=== PATIENT | female | born 1955 | race Caucasian/White ===

== ENCOUNTER 2022-10-25 09:15 | Inpatient (IN) | payer OTHER, SELFPAY ==
[2022-10-25] VITALS (9 sets, daily range): BP systolic 98–127; BP diastolic 65–80; PULSE 53–93; RESP 14–23; TEMP 36.2–36.8; O2SAT 93–97; BMI 23.4
--- NOTE | ~2022-10-25 | MR_ITS ---
EXAMINATION: MR BRAIN WITHOUT AND WITH CONTRAST CLINICAL INFORMATION: Mass COMPARISON: Same day CT head without contrast. TECHNIQUE: Multiplanar multisequence MR imaging of the brain was obtained without and following the administration of 7.5 mL Gadavist intravenous contrast. FINDINGS: Solid, centrally necrotic, and mildly diffusion restricting right frontal lobe mass measures up to 3.0 x 3.4 x 2.9 cm. There is extensive vasogenic edema in the right frontal lobe. No other intraparenchymal lesions are identified. Associated mass effect with partial effacement of the right lateral ventricle and approximately 8 mm leftward midline shift. There is some mild medialization of the right uncus. No tonsillar herniation. There is no acute infarct on diffusion-weighted imaging. There is no intracranial hemorrhage on iron-sensitive imaging. No extra-axial collection. Patchy periventricular and deep white matter T2 FLAIR hyperintensities consistent with mild to moderate underlying microangiopathy. No hydrocephalus. The ventricles are normal in morphology and size. No abnormal leptomeningeal enhancement. The major flow voids at the skull base are preserved. The midline structures are normal. The craniocervical junction is normal. Marrow signal is within normal limits. The visualized soft tissues are without significant abnormality. No signal abnormality within the paranasal sinuses or within the mastoid air cells. MR/MR head/brain wo/w con IMPRESSION: Right frontal lobe mass measuring up to 3.4 cm with extensive surrounding vasogenic edema and mass effect resulting in 8 mm leftward midline shift and mild medialization of the right uncus. No other intraparenchymal lesions are identified. Differential considerations include solitary metastatic disease, less likely a high-grade glial neoplasm.
--- NOTE | ~2022-10-25 | XR_ITS ---
EXAMINATION: XR CHEST CLINICAL INFORMATION: Subacute CVA COMPARISON: None available. TECHNIQUE: AP portable upright view of the chest was obtained. FINDINGS: Cardiac leads project over the chest. There is mild prominence of the interstitial markings in the right mid and lower lung. No focal consolidation or interstitial pulmonary edema. The cardiomediastinal silhouette is within normal limits. There are no pleural effusions. Thoracolumbar scoliosis is noted. XR/XR chest 1V IMPRESSION: Mild prominence of the interstitial markings in the right mid and lower lung. No focal consolidation.
--- NOTE | ~2022-10-25 | CT_ITS ---
EXAMINATION: CT ABDOMEN AND PELVIS WITH CONTRAST CLINICAL INFORMATION: Brain mass. Rule out metastatic disease. COMPARISON: None available. TECHNIQUE: Multidetector volumetric images were obtained from the superior aspect of the liver through the pubic symphysis following administration 85 mL of Omnipaque 350 intravenous contrast. Sagittal and coronal reformatted images were obtained on the technologist's workstation. Oral contrast: Yes This CT examination was performed using dose optimization techniques as appropriate, variously including the following: *Automated exposure control *Adjustment of mA and/or kV according to patient size (this includes techniques or standardized protocols for targeted exams where dose is matched to indication/reason for exam; i.e. extremities or head) *Use of iterative reconstruction technique DLP: 386 mGy-cm FINDINGS: LUNG BASES: See chest CT from the same day LIVER, GALLBLADDER, AND BILIARY TREE: The liver is normal in size, shape, and attenuation. No focal hepatic. The gallbladder is normal. There is mild intra and extrahepatic biliary duct dilatation. PANCREAS: Unremarkable. Main pancreatic duct does not appear dilated. SPLEEN: Unremarkable. ADRENAL GLANDS: Unremarkable. KIDNEYS AND URETERS: Cortical thinning or scarring in the upper pole the left kidney. BLADDER: Diffuse bladder wall thickening. GASTROINTESTINAL TRACT: The small and large bowel are unremarkable. The appendix is not seen and may been removed. ABDOMINAL WALL: Small left umbilical and left lower ventral hernias containing fat. LYMPH NODES: No enlarged lymph nodes. Small Partially calcified periportal lymph nodes. VASCULAR: Severe atherosclerotic disease PELVIC VISCERA: Unremarkable. OSSEOUS STRUCTURES: Degenerative changes of the spine and scoliosis. CT/CT abdomen pelvis w IV con IMPRESSION: Mild intra and extrahepatic biliary duct dilatation. Cortical thinning or scarring of the left kidney. Diffuse bladder wall thickening. Severe atherosclerotic disease. Fleischner guidelines were followed.
--- NOTE | ~2022-10-25 | CT_ITS ---
EXAMINATION: CT HEAD WITHOUT CONTRAST CLINICAL INFORMATION: 5-7 days left-sided weakness. COMPARISON: No relevant prior imaging. TECHNIQUE: Contiguous axial imaging was performed from the skull base to vertex without intravenous administration of contrast. This CT examination was performed using dose optimization techniques as appropriate, variously including the following: *Automated exposure control *Adjustment of mA and/or kV according to patient size (this includes techniques or standardized protocols for targeted exams where dose is matched to indication/reason for exam; i.e. extremities or head) *Use of iterative reconstruction technique DLP: 565 mGy-cm FINDINGS: There is a rounded 3 cm mass within the subcortical white matter of the right frontal lobe with a broad margin of perilesional vasogenic edema. Mass effect within the right supratentorial compartment causes 0.9 cm leftward midline shift at the septum pellucidum. No overt mesencephalic compression. Garcia-white matter differentiation is otherwise preserved and there is no evidence of acute territorial infarct. The calvarium and skull base are intact. Mastoid air cells and middle ear cavities are well aerated. No active paranasal sinus disease. CT/CT head/brain wo IV con IMPRESSION: There is a rounded 3 cm mass within the subcortical white matter of the right frontal lobe with a broad margin of perilesional vasogenic edema. Mass effect within the right supratentorial compartment causes 0.9 cm leftward midline shift at the septum pellucidum. No overt mesencephalic compression. This critical result was discussed with Tylor May MD at 11:15 AM on 10/25/2022 and it was ascertained that the content and urgency of the report was understood at the time of direct communication.
--- NOTE | ~2022-10-25 | CT_ITS ---
EXAMINATION: CT CHEST WITH CONTRAST CLINICAL INFORMATION: Brain mass. Rule out lung cancer. COMPARISON: Previous chest x-ray from earlier the same day TECHNIQUE: Multidetector volumetric CT imaging of the chest was obtained after the administration of 85 mL of Omnipaque 350 intravenous contrast without immediate adverse reactions. Axial MIP volume rendering provided. Sagittal and coronal reformatted images were obtained. This CT examination was performed using dose optimization techniques as appropriate, variously including the following: *Automated exposure control *Adjustment of mA and/or kV according to patient size (this includes techniques or standardized protocols for targeted exams where dose is matched to indication/reason for exam; i.e. extremities or head) *Use of iterative reconstruction technique DLP: 218 mGy-cm FINDINGS: LUNGS: Severe emphysema. 3 mm left upper lobe calcification axial image 212 series 7. Linear scarring or subsegmental atelectasis axial image 223 series 7. Abnormal triangular shaped parenchymal density in the anterior left upper lobe measuring 1.8 x 1.3 cm axial image 240 series 7. Linear scarring or subsegmental atelectasis in the posterior left upper lobe adjacent to the fissure axial image 324 series 7. 8 x 10 mm irregularly-shaped right lower lobe nodule axial image 303 series 7. Irregularly-shaped parenchymal density in the dependent right lower lobe axial image 318 series 7 question representing dependent atelectasis. 4 mm central left lower lobe nodule axial image 357 series 7. 4 x 8 mm peripheral or subpleural left lower lobe nodule axial image 387 series 7. 3 x 6 mm peripheral or subpleural left lower lobe nodule axial image 387 series 7. No endobronchial or endotracheal lesion. MEDIASTINUM: Small mediastinal and bilateral hilar lymph nodes. No enlarged lymph nodes. Normal heart size. Mild coronary artery calcification. No pericardial effusion. Normal caliber thoracic aorta. Air-filled distended esophagus. Question wall thickening of the distal thoracic esophagus. PLEURA: There is no pleural effusion. No pleural mass or thickening. AXILLA: No lymphadenopathy. UPPER ABDOMEN: Unremarkable OSSEOUS STRUCTURES: Degenerative changes of the spine. CT/CT chest w IV con IMPRESSION: Severe emphysema. Multiple pulmonary nodules and parenchymal opacities. No suspicious are a 1.8 x 1.3 cm left upper lobe nodule and 8 x 10 mm right lower lobe nodule. Fleischner guidelines were followed.
--- NOTE | 2022-10-25 09:32 | ECG_ITS ---
Test Reason : chest pain Blood Pressure : / mmHG Vent. Rate : 089 BPM Atrial Rate : 089 BPM P-R Int : 152 ms QRS Dur : 078 ms QT Int : 516 ms P-R-T Axes : 070 036 051 degrees QTc Int : 627 ms Normal sinus rhythm Nonspecific ST and T wave abnormality Borderline ECG No previous ECGs available Referred By: Tylor May Electronically Signed By:CRISTOBAL MERCEDES
--- NOTE | 2022-10-25 09:33 | ED_ITS ---
HPI - Neuro Symptoms/Deficit General Chief Complaint: Neuro Symptoms/Deficit Stated Complaint: stroke ? Time Seen by Provider: 10/25/22 09:24 Source: patient Mode of arrival: ambulatory Limitations: no limitations History of Present Illness HPI Narrative: 67-year-old female with history of polysubstance abuse recently used methadone, heroin, fentanyl presents with 5-7 days of left-sided weakness. There are no ac rodrigo injuries or falls. Symptoms been constant. There is no clear relieving or exacerbating features. She reports difficulty speaking but not swallowing. She reports weakness in particular the upper extremity. She has never had this before. She is not on any blood thinning medications. Symptoms are described as moderate to severe. There is no pain associated with it and therefore there is no radiation of symptoms. Patient denies any paresthesias Related Data Home Medications Medication Instructions Recorded Confirmed albuterol sulfate 90 mcg/actuation 2 puff inhalation QID PRN wheezing 10/25/22 10/25/22 aerosol inhaler (Ventolin HFA) alendronate 70 mg tablet 70 mg PO TU 10/25/22 10/25/22 calcium carbonate 600 mg-vitamin 1 tab PO BID 10/25/22 10/25/22 D3 10 mcg (400 unit) tablet clonazepam 0.125 mg disintegrating 0.125 mg PO BEDTIME PRN Anxiety 10/25/22 10/25/22 tablet fluticasone propionate 50 1 spray intranasal DAILY 10/25/22 10/25/22 mcg/actuation nasal spray,suspension lisinopril 10 mg tablet 10 mg PO DAILY 10/25/22 10/25/22 melatonin 3 mg tablet 6 mg PO BEDTIME PRN insomnia 10/25/22 10/25/22 methadone 10 mg/mL oral 70 mg PO DAILY 10/25/22 concentrate (Methadone Intensol) omeprazole 20 mg capsule,delayed 20 mg PO DAILY 10/25/22 10/25/22 release tiotropium 2.5 mcg-olodaterol 2.5 2 puff inhalation DAILY 10/25/22 10/25/22 mcg/actuation mist for inhalation (Stiolto Respimat) Allergies Allergy/AdvReac Type Severity Reaction Status Date / Time elastic Allergy Unknown Uncoded 10/25/22 09:25 Review of Systems Review of Systems: CONSTITUTIONAL: Denies weight loss, fever and chills. HEENT: Denies changes in vision and hearing. RESPIRATORY: Denies SOB and cough. CV: Denies palpitations no CP. GI: Denies abdominal pain, nausea, vomiting and diarrhea. : Denies dysuria and urinary frequency. MSK: Denies myalgia and joint pain. SKIN: Denies rash and pruritus. NEUROLOGICAL: Denies headache and syncope. PSYCHIATRIC: Denies recent changes in mood. Denies anxiety and depression. All other ROS are negative unless in [facility] Past Medical History Medical History (Updated 10/25/22 @ 13:06 by Arti Yousif NP) No pertinent past medical history Surgical History (Updated 10/25/22 @ 13:06 by Arti Yousif NP) No pertinent past surgical history Social History Social History (Updated 10/25/22 @ 13:08 by Arti Yousif NP) Household Members: None Substance Use Type: Heroin Substance Use Type Other:: Fentanyl Substance Use Frequency: Daily Last Used Substance: Just Prior to Admission Last Used Substance Other:: Sniffing and injecting Advance Directives: Yes Advance Directives Information Provided: Yes Advance Directives on File: No Physical Exam Vital Signs: Vital Signs: Last Vital Signs Temp 98.1 F 10/25/22 09:20 Pulse 71 10/25/22 12:10 Resp 14 10/25/22 12:10 BP 108/65 10/25/22 12:10 Pulse Ox 95 10/25/22 12:10 O2 Del Method Room Air 10/25/22 10:43 BMI result Body Mass Index 23.4 GEN: Well developed, no acute distress, alert, oriented HEENT: Normocephalic, atraumatic, normal external ears, nose appears normal, no oropharyngeal edema or exudates Eyes: Normal to appearance Neck: Supple, no lymphadenopathy Respiratory: Talks in complete sentences, no respiratory distress, clear to auscultation bilaterally Cardiovascular: Regular rate and rhythm, no murmurs rubs or gallops Abdomen: Soft, nontender, nondistended, no guarding, no rebound Back: No CVA tenderness Extremities: No clubbing cyanosis or edema Neurologic: Left facial droop, left upper extremity strength is 3 to 4/5, rest of her strength is intact. She is sensory intact. She has a left pronator drift, [id number] are mostly intact however there is a little bit of dysmetria on the left Skin: No rash Course Course Course Narrative: 67-year-old female with substance abuse problem presents with left-sided weakness 5-7 days ago. Patient is not a tPA candidate or thrombectomy candidate. Will obtain a CT scan of the head to rule out intracranial bleeding, subdural hematoma, epidural hematoma as a possible etiology of her symptoms. She has no trauma so I doubt this is the etiology. She has no headache doubt subarachnoid hemorrhage. Most likely, patient has an ischemic stroke. Patient will have additional routine workup. She will ultimately be admitted to the hospital. She will likely require an MRI plus or minus carotid ultrasounds. Assuming her CT scan is negative, patient will get aspirin 324 mg Reevaluation(s) Reevaluation #1: Spoke with family the 2nd time regarding likely mass. Appears to possibly be metastatic due to the round nature of it. Primary brain cancer cannot be ruled out. Patient does have a history of lung cancer status post left lower lobectomy. She also was noted to have a pelvic mass at some point by her OBGYN. Will order CT scan the abdomen and pelvis and chest to rule out possible pathologies Time: 11:21 Reevaluation #2: Patient also has UTI. Will start IV ceftriaxone Time: 11:22 Consultations Consultation #1: Neurology: Decadron 10 mg every 6 hours. Hold off on anticonvulsants at this time pending consultation Time: 11:28 Medications Administered Discontinued Medications Generic Name Dose Route Start Last Admin Trade Name Freq PRN Reason Stop Dose Admin Dexamethasone Sodium Phosphate 10 mg 10/25/22 11:27 10/25/22 11:56 Dexamethasone Sod Phosphate 10 Mg/Ml Vial IVPUSH 10/25/22 11:28 10 mg ONCE ONE Administration Ceftriaxone Sodium 1 gm/ 50 mls @ 100 mls/hr 10/25/22 11:23 10/25/22 12:40 Sodium Chloride IV 10/25/22 11:52 Infused ONCE ONE Infusion Iohexol 100 ml 10/25/22 11:51 10/25/22 11:52 Iohexol 350 Mg/Ml 100 Ml Infus..Btl IV 10/25/22 11:52 85 ml ONCE ONE Administration Lorazepam 1 mg 10/25/22 11:19 10/25/22 11:55 Lorazepam 1 Mg Tablet PO 10/25/22 11:20 1 mg ONCE ONE Administration Medical Decision Making Medical Decision Making MDM Narrative: 67-year-old female presents with left-sided weakness and facial droop. Her finding started about 5-7 days ago. This was preceded by use of methadone, fent anyl and heroin. She snorts this substances but denies any intravenous drug abuse. She denies any pain. Examination did reveal left upper extremity weakness, left facial droop, pronator drift and some dysmetria. There is no significant dysarthria. Sensation was intact. Patient is not a candidate for tPA or thrombectomy. Differential diagnosis includes TIA CVA, electrolyte abnormality, cardiac dysrhythmia, ischemia, hemorrhagic. Plan will be to obtain a CT scan of the head to rule out acute ischemia, EKG to rule out cardiac dysrhythmia, laboratory analysis to rule out other possible etiology, admission. Admission/Observation Consideration of admission/observation: Escalation of care including admission/observation considered Consult Healthcare Provider Management of the patient was discussed with: Hospitalist Lab Data MDM Lab Attestation statement: I reviewed the patient's lab results. 10/25/22 09:43 10/25/22 09:43 Labs: Lab Results 10/25/22 10/25/22 10/25/22 Range/Units 09:43 09:43 09:43 WBC 5.9 (4.8-10.8) X10*3/uL RBC 4.51 (4.20-5.50) X10*6/uL Hgb 13.7 (12.0-16.0) g/dl Hct 40.6 (37.0-47.0) % MCV 90.0 (80.0-98.0) fL MCH 30.4 (27.0-33.0) pg MCHC 33.7 (31.0-35.0) g/dl RDW 12.9 (11.0-16.0) % Plt Count 155 L (160-400) X10*3/uL MPV 10.9 (9.4-12.3) fL Immature Gran % (Auto) 0.2 (0.0-0.4) % Neut % (Auto) 55.1 (45-73) % Lymph % (Auto) 32.6 (20-40) % [place] % (Auto) 9.1 (2-11) % Eos % (Auto) 2.5 (0-4) % Baso % (Auto) 0.5 (0-2) % Lymph # (Auto) 1.9 (1.2-4.9) X10*3/uL [place] # (Auto) 0.5 (0.1-1.2) X10*3/uL Eos # (Auto) 0.2 (0.0-0.4) X10*3/uL Baso # (Auto) 0.0 (0.0-0.2) X10*3/uL Abs Immat Gran (auto) 0.01 (0.00-0.03) X10*3/uL Absolute Neuts (auto) 3.3 (2.0-8.3) x10*3/uL Absolute Nucleated RBC 0.000 (0.0-0.012) X10*3/uL Nucleated RBC % (auto) 0.0 (0.0-0.2) /100WBC Sodium 142 (135-145) mmol/L Potassium 3.6 (3.3-5.1) mmol/L Chloride 105 (96-108) mmol/L Carbon Dioxide 23 (22-29) mmol/L Anion Gap 18 (12-20) BUN 11 (9-16) mg/dL Creatinine 0.78 (0.5-1.4) mg/dL Estim Creat Clear Calc 52.8 Estimated GFR > 60 Random Glucose 112 (60-115) mg/dL Calcium 9.6 (8.4-10.2) mg/dL Urine Color Urine Appearance Urine pH (5.0-9.0) Ur Specific [place] (1.005-1.025) Urine Protein (Neg-Trace) mg/dL Urine Glucose (UA) (Negative) mg/dL Urine Ketones (Negative) mg/dL Urine Blood (Negative) Urine Nitrite (Negative) Ur Leukocyte Esterase (Negative) Urine RBC (0-2) /HPF Urine WBC (0-5) /HPF Ur Squamous Epith Cells (0-2) /HPF Calcium Oxalate Crystal Urine Bacteria (None Seen) Hyaline Casts (0-2) /LPF Urine Opiates Screen (Not Detect) Urine Fentanyl Screen (Not Detect) Ur Barbiturates Screen (Not Detect) Ur Phencyclidine Scrn (Not Detect) Ur Amphetamines Screen (Not Detect) U Benzodiazepines Scrn (Not Detect) Urine Cocaine Screen (Not Detect) U Marijuana (THC) Screen (Not Detect) Ethyl Alcohol mg/dL COVID-19 (MELONIE) Negative (Negative) COVID-19 Clin Com See Note 10/25/22 10/25/22 10/25/22 Range/Units 09:43 10:56 10:56 WBC (4.8-10.8) X10*3/uL RBC (4.20-5.50) X10*6/uL Hgb (12.0-16.0) g/dl Hct (37.0-47.0) % MCV (80.0-98.0) fL MCH (27.0-33.0) pg MCHC (31.0-35.0) g/dl RDW (11.0-16.0) % Plt Count (160-400) X10*3/uL MPV (9.4-12.3) fL Immature Gran % (Auto) (0.0-0.4) % Neut % (Auto) (45-73) % Lymph % (Auto) (20-40) % [place] % (Auto) (2-11) % Eos % (Auto) (0-4) % Baso % (Auto) (0-2) % Lymph # (Auto) (1.2-4.9) X10*3/uL [place] # (Auto) (0.1-1.2) X10*3/uL Eos # (Auto) (0.0-0.4) X10*3/uL Baso # (Auto) (0.0-0.2) X10*3/uL Abs Immat Gran (auto) (0.00-0.03) X10*3/uL Absolute Neuts (auto) (2.0-8.3) x10*3/uL Absolute Nucleated RBC (0.0-0.012) X10*3/uL Nucleated RBC % (auto) (0.0-0.2) /100WBC Sodium (135-145) mmol/L Potassium (3.3-5.1) mmol/L Chloride (96-108) mmol/L Carbon Dioxide (22-29) mmol/L Anion Gap (12-20) BUN (9-16) mg/dL Creatinine (0.5-1.4) mg/dL Estim Creat Clear Calc Estimated GFR Random Glucose (60-115) mg/dL Calcium (8.4-10.2) mg/dL Urine Color Dark Yellow Urine Appearance Turbid Urine pH 6.0 (5.0-9.0) Ur Specific [place] >= 1.030 H (1.005-1.025) Urine Protein Trace (Neg-Trace) mg/dL Urine Glucose (UA) Negative (Negative) mg/dL Urine Ketones 15 (Negative) mg/dL Urine Blood Negative (Negative) Urine Nitrite Negative (Negative) Ur Leukocyte Esterase Moderate (2+) H (Negative) Urine RBC 6-10 H (0-2) /HPF Urine WBC 21-50 H (0-5) /HPF Ur Squamous Epith Cells >20 (0-2) /HPF Calcium Oxalate Crystal Present Urine Bacteria 4+ (None Seen) Hyaline Casts 0-2 (0-2) /LPF Urine Opiates Screen POSITIVE H (Not Detect) Urine Fentanyl Screen POSITIVE H (Not Detect) Ur Barbiturates Screen Not Detected (Not Detect) Ur Phencyclidine Scrn Not Detected (Not Detect) Ur Amphetamines Screen Not Detected (Not Detect) U Benzodiazepines Scrn POSITIVE H (Not Detect) Urine Cocaine Screen Not Detected (Not Detect) U Marijuana (THC) Screen Not Detected (Not Detect) Ethyl Alcohol < 10 mg/dL COVID-19 (MELONIE) (Negative) COVID-19 Clin Com Independent Interpretation I performed an independent interpretation of an: EKG (Normal sinus rhythm heart rate 89, nonspecific T-wave changes, no acute ST elevations depressions), Rhythm Strip (Normal sinus rhythm), Plain X-Ray (Chest: No acute cardiopulmonary disease) and CT Scan (Brain: Right parietal mass with significant surrounding vasogenic edema, mass effect and shift) Radiology Impression Discussion of test interpretation with radiology: I have reviewed the radiologist's reading. Radiologist Impression: CT/CT head/brain wo IV con IMPRESSION: There is a rounded 3 cm mass within the subcortical white matter of the right frontal lobe with a broad margin of perilesional vasogenic edema. Mass effect within the right supratentorial compartment causes 0.9 cm leftward midline shift at the septum pellucidum. No overt mesencephalic compression. ? This critical result was discussed with Tylor May MD at 11:15 AM on 10/25/2022 and it was ascertained that the content and urgency of the report was understood at the time of direct communication. Dictated By: Jason Coronel MD Signed By: <Electronically signed by Jason Coronel MD in [place]> 10/25/[address]/CT chest w IV con IMPRESSION: Severe emphysema. Multiple pulmonary nodules and parenchymal opacities. No suspicious are a 1.8 x 1.3 cm left upper lobe nodule and 8 x 10 mm right lower lobe nodule.? ? Fleischner guidelines were followed. Dictated By: Raegan Hinojosa MD Signed By: <Electronically signed by Raegan Hinojosa MD in [place]> 10/25/[address]/CT abdomen pelvis w IV con IMPRESSION: Mild intra and extrahepatic biliary duct dilatation. Cortical thinning or scarring of the left kidney. Diffuse bladder wall thickening. Severe atherosclerotic disease. Fleischner guidelines were followed. Dictated By: Raegan Hinojosa MD Signed By: <Electronically signed by Raegan Hinojosa MD in [place]> 10/25/22 1309 DD/ 1205 TD/TT:? Faceter: GRISELDA Independent Historian Clinical information obtained from an independent historian. History obtained from or confirmed by: Other (Daughter) Chronic Conditions Patient?s care impacted by: Other (Substance abuse) NIH Stroke Scale Internal: Other (5-7 days after symptoms started) Time: 09:36 Level of Consciousness: Alert Level of Consciousness Questions: Answers both questions correctly Level of Consciousness Commands: Performs both tasks correctly Best Gaze: Normal Visual: No visual loss Facial Palsy: Partial paralysis Motor Arm (Right): No drift Motor Arm (Left): Drift Motor Leg (Right): No drift Motor Leg (Left): No drift Limb Ataxia: Present in one limb Sensory: Normal Best Language: No aphasia Dysarthia: Normal Extinction and Inattention: No abnormality Score: 4 Critical Care Time Critical Care Time Critical Care Time: Yes Total Critical Care Time: 65 Attestation: Critical care time in approximately 65 minutes including initial bedside assessment, reassessment, conversation with family and patient regarding findi ngs, consultation with Neurology, management of acute neurologic deficits, review of medical data interpretation thereof, documentation, all outside of medical procedures Discharge Plan Discharge Clinical Impression: Brain mass, Vasogenic brain edema, Acute lower UTI Patient Disposition: Admitted As Inpatient
[2022-10-25 09:50] LABS: MANUAL DIFF FLAG NO
[2022-10-25 09:52] LABS: Basophils Percent Auto 0.5 % (0-2); Eosinophils Absolute Auto 0.2 X10*3/uL (0.0-0.4); Eosinophils Percent Auto 2.5 % (0-4); Hematocrit 40.6 % (37.0-47.0); Hemoglobin 13.7 g/dl (12.0-16.0); Imm Gran Abs Auto 0.01 X10*3/uL (0.00-0.03); Imm Gran Pct Auto 0.2 % (0.0-0.4); Lymphocytes Absolute Auto 1.9 X10*3/uL (1.2-4.9); Lymphocytes Percent Auto 32.6 % (20-40); Mean Corpuscular HGB Conc 33.7 g/dl (31.0-35.0); Mean Corpuscular Hemoglobin 30.4 pg (27.0-33.0); Mean Platelet Volume 10.9 fL (9.4-12.3); Monocytes Absolute Auto 0.5 X10*3/uL (0.1-1.2); Monocytes Percent Auto 9.1 % (2-11); Neutrophils Absolute Auto 3.3 x10*3/uL (2.0-8.3); Neutrophils Percent Auto 55.1 % (45-73); Platelet Count 155 X10*3/uL (160-400); Red Blood Count 4.51 X10*6/uL (4.20-5.50); Red Cell Distribution Width 12.9 % (11.0-16.0); White Blood Count 5.9 X10*3/uL (4.8-10.8)
[2022-10-25 10:09] LABS: COVID-19 Test Negative (Negative); IDNOW Serial# 08D9AD1C
[2022-10-25 10:16] LABS: Ethanol < 10 mg/dL
[2022-10-25 10:36] LABS: Anion Gap 18 (12-20); Blood Urea Nitrogen 11 mg/dL (9-16); Calcium 9.6 mg/dL (8.4-10.2); Carbon Dioxide 23 mmol/L (22-29); Chloride 105 mmol/L (96-108); Creatinine Clr Calc Pharmacy 52.8; Estimated Glomerular Filt Rate > 60; Glucose Random 112 mg/dL (60-115); Potassium 3.6 mmol/L (3.3-5.1); Sodium 142 mmol/L (135-145)
[2022-10-25 11:07] LABS: Appearance Urine Turbid; Color Urine Dark Yellow; Glucose Urine UA Negative (Negative); Leukocyte Esterase Urine Moderate (2+) (Negative); Nitrite Urine Negative (Negative); Specific Gravity - Urine >= 1.030 (1.005-1.025); UMIC TRIGGER UACC YES; Urine Blood Negative (Negative); Urine Ketones 15 mg/dL (Negative); Urine Protein Trace mg/dL (Neg-Trace)
[2022-10-25 11:15] LABS: Bacteria Urine 4+ (None Seen); Calcium Oxalate Crystals Urine Present; Hyaline Casts Urine 0-2 /LPF (0-2); Squamous Epithelial Cell Urine >20 /HPF (0-2); UACC Culture Trigger YES; WBC Urine 21-50 /HPF (0-5)
[2022-10-25 11:26] LABS: Amphetamine Screen Urine Not Detected (Not Detect); Barbiturates, Urine Not Detected (Not Detect); Benzodiazepines Screen Urine POSITIVE (Not Detect); Cannabinoid Screen Urine Not Detected (Not Detect); Cocaine Screen Urine Not Detected (Not Detect); Fentanyl, urine POSITIVE (Not Detect); Opiate Screen Urine POSITIVE (Not Detect); Phencyclidine Screen Urine Not Detected (Not Detect)
--- NOTE | 2022-10-25 11:50 | PC.NURSE ---
SWALLOW SCREEN COMPLETED-PASS
[2022-10-25] MEDS: iohexoL 350 MG/ML 100 ML INFUS..BTL IV (11:52)
[2022-10-25] MEDS: LORazepam 1 MG TABLET PO ×2 (11:55→19:37)
[2022-10-25] MEDS: dexAMETHasone sod phosphate 10 MG/ML VIAL IVPUSH (11:56)
[2022-10-25] MEDS: cefTRIAXone sodium 1 GM in 0.9 % Sodium Chloride 50 ML IV (12:08)
--- NOTE | 2022-10-25 12:56 | PM.IMHP ---
History of Present Illness Date of Service: 10/25/22 Attending physician on admission: Clementine Burnett Chief Complaint: slurred speech 67-year-old woman with history of lung cancer, pelvic mass, heroin/fentanyl abuse admitted with left-sided facial droop and left lower extremity weakness secondary to brain mass According to her daughter the patient was at her baseline in August 2022. Over the last 2 weeks the patient has noted some speech problems and weakness. Her daughter stated that the last few days the patient has been calling her at all hours of the night and leaving messages, which is unlike her. She also uses heroin and has been using for over 2 years when she relapsed after her lobectomy for lung cancer. Chest and abc CT not showing any acute abnormality. In the ED, Brain CT shows a 3 cm mass to the right frontal lobe with vasogenic edema and 0.9 cm leftward midline shift with noted left sided facial droop and LUE weakness. Vital signs stable and no signs of infection. She received decadron in the ED and she will be admitted for further management of symptomatic brain mass. Review of Systems Review of Systems: Denies any recent fever chills or decrease in appetite respiratory denies any shortness of breath coverage production cardiovascular denies chest pain gastrointestinal denies any dysphagia abdominal pain nausea vomiting or diarrhea genitourinary denies any dysuria frequency or hematuria musculoskeletal denies any joint pain or swelling neuropsych reports slurred speech, feeling off balance, upper and lower extremity weakness and facial droop all other systems reviewed are negative [facility] Medical History No pertinent past medical history Surgical History No pertinent past surgical history Social History (Updated 10/25/22 @ 13:08 by Arti Yousif NP) Household Members: None Housing: House Patient Tobacco Use Status: Current everyday Tobacco user Cigarette Packs Per Day: 1 Cigarettes Per Day: 20.0 Use of substances other than those prescribed or required for medical reasons: Yes Substance Use Type: Amphetamines and Heroin Substance Use Type Other:: Fentanyl Substance Use Frequency: Daily Last Used Substance: Just Prior to Admission Last Used Substance Other:: Sniffing and injecting Currently Displaying Signs/Symptoms of Drug Intoxication Withdrawal: No Have you been hit, kicked, punched, or otherwise hurt by someone within the past year? If so, by whom?: No Is there a partner from a previous relationship who is making you feel unsafe now?: No Advance Directives: Yes Advance Directives Information Provided: Yes Advance Directives on File: No Advance Directives Date on File: 10/25/22 Do you have thoughts of harming others: None Do you have a plan to hurt others: No Plan Patient : No service: No Meds Allergies Allergy/AdvReac Type Severity Reaction Status Date / Time elastic Allergy Unknown Uncoded 10/25/22 09:25 Home Medications Medication Instructions Recorded Confirmed Last Taken Type albuterol sulfate 90 mcg/actuation 2 puff inhalation QID PRN wheezing 10/25/22 10/25/22 Unknown History aerosol inhaler (Ventolin HFA) alendronate 70 mg tablet 70 mg PO TU 10/25/22 10/25/22 Unknown History calcium carbonate 600 mg-vitamin 1 tab PO BID 10/25/22 10/25/22 Unknown History D3 10 mcg (400 unit) tablet clonazepam 0.125 mg disintegrating 0.125 mg PO BEDTIME PRN Anxiety 10/25/22 10/25/22 Unknown History tablet fluticasone propionate 50 1 spray intranasal DAILY 10/25/22 10/25/22 Unknown History mcg/actuation nasal spray,suspension lisinopril 10 mg tablet 10 mg PO DAILY 10/25/22 10/25/22 Unknown History melatonin 3 mg tablet 6 mg PO BEDTIME PRN insomnia 10/25/22 10/25/22 Unknown History methadone 10 mg/mL oral 70 mg PO DAILY 10/25/22 10/25/22 History concentrate (Methadone Intensol) omeprazole 20 mg capsule,delayed 20 mg PO DAILY 10/25/22 10/25/22 Unknown History release tiotropium 2.5 mcg-olodaterol 2.5 2 puff inhalation DAILY 10/25/22 10/25/22 Unknown History mcg/actuation mist for inhalation (Stiolto Respimat) Physical Exam Vital Signs and Narrative: Vital Signs: Last Vital Signs Temp 98.1 F 10/25/22 09:20 Pulse 71 10/25/22 12:10 Resp 14 10/25/22 12:10 BP 108/65 10/25/22 12:10 Pulse Ox 95 10/25/22 12:10 O2 Del Method Room Air 10/25/22 10:43 BMI result Body Mass Index 23.4 Appearing in no acute distress head is normocephalic atraumatic eyes pupils are PERRLA sclera is anicteric mouth throat mucous membranes are intact and moist neck is supple no lymphadenopathy, no JVD noted lung sounds are clear to auscultation heart regular rate rhythm, clear S1, S2 positive bowel sounds, abdomen is soft, nontender neuro Left sided facial droop noted, 2/5 strength to left upper extremity, 4/5 strength to left lower extremity Results Labs 10/25/22 09:43 10/25/22 09:43 Labs: Laboratory Results - last 24 hr 10/25/22 10/25/22 10/25/22 09:43 09:43 09:43 MCV 90.0 MCH 30.4 MCHC 33.7 RDW 12.9 Plt Count 155 L MPV 10.9 Immature Gran % (Auto) 0.2 Neut % (Auto) 55.1 Lymph % (Auto) 32.6 [place] % (Auto) 9.1 Eos % (Auto) 2.5 Baso % (Auto) 0.5 Lymph # (Auto) 1.9 [place] # (Auto) 0.5 Eos # (Auto) 0.2 Baso # (Auto) 0.0 Abs Immat Gran (auto) 0.01 Absolute Neuts (auto) 3.3 Absolute Nucleated RBC 0.000 Nucleated RBC % (auto) 0.0 Anion Gap 18 Estim Creat Clear Calc 52.8 Estimated GFR > 60 Random Glucose 112 Calcium 9.6 Urine Color Urine Appearance Urine pH Ur Specific [place] Urine Protein Urine Glucose (UA) Urine Ketones Urine Blood Urine Nitrite Ur Leukocyte Esterase Urine RBC Urine WBC Ur Squamous Epith Cells Calcium Oxalate Crystal Urine Bacteria Hyaline Casts Urine Opiates Screen Urine Fentanyl Screen Ur Barbiturates Screen Ur Phencyclidine Scrn Ur Amphetamines Screen U Benzodiazepines Scrn Urine Cocaine Screen U Marijuana (THC) Screen Ethyl Alcohol COVID-19 (MELONIE) Negative COVID-19 Clin Com See Note 10/25/22 10/25/22 10/25/22 09:43 10:56 10:56 MCV MCH MCHC RDW Plt Count MPV Immature Gran % (Auto) Neut % (Auto) Lymph % (Auto) [place] % (Auto) Eos % (Auto) Baso % (Auto) Lymph # (Auto) [place] # (Auto) Eos # (Auto) Baso # (Auto) Abs Immat Gran (auto) Absolute Neuts (auto) Absolute Nucleated RBC Nucleated RBC % (auto) Anion Gap Estim Creat Clear Calc Estimated GFR Random Glucose Calcium Urine Color Dark Yellow Urine Appearance Turbid Urine pH 6.0 Ur Specific [place] >= 1.030 H Urine Protein Trace Urine Glucose (UA) Negative Urine Ketones 15 Urine Blood Negative Urine Nitrite Negative Ur Leukocyte Esterase Moderate (2+) H Urine RBC 6-10 H Urine WBC 21-50 H Ur Squamous Epith Cells >20 Calcium Oxalate Crystal Present Urine Bacteria 4+ Hyaline Casts 0-2 Urine Opiates Screen POSITIVE H Urine Fentanyl Screen POSITIVE H Ur Barbiturates Screen Not Detected Ur Phencyclidine Scrn Not Detected Ur Amphetamines Screen Not Detected U Benzodiazepines Scrn POSITIVE H Urine Cocaine Screen Not Detected U Marijuana (THC) Screen Not Detected Ethyl Alcohol < 10 COVID-19 (MELONIE) COVID-19 Clin Com Imaging Radiologist's Impressions: Impressions Chest X-Ray 10/25/22 10:00 IMPRESSION: Mild prominence of the interstitial markings in the right mid and lower lung. No focal consolidation. Head CT 10/25/22 10:37 IMPRESSION: There is a rounded 3 cm mass within the subcortical white matter of the right frontal lobe with a broad margin of perilesional vasogenic edema. Mass effect within the right supratentorial compartment causes 0.9 cm leftward midline shift at the septum pellucidum. No overt mesencephalic compression. This critical result was discussed with Tylor May MD at 11:15 AM on 10/25/2022 and it was ascertained that the content and urgency of the report was understood at the time of direct communication. Assessment and Plan (1) Brain mass: Status: Acute Plan 67-year-old woman with history of lung cancer, pelvic mass, heroin/fentanyl abuse admitted with left-sided facial droop and left lower extremity weakness secondary to brain mass Brain Mass 3 cm mass noted to right frontal lobe with noted vasogenic edema still with Left sides facial droop and left ue weakness Continue IV steroids Keppra received in the ED MRI with and without contrast Neurology consult PT/OT UTI Rocephin follow urine cx Opioid abuse uses 2 bundles of heroin a day addiction team consult Hypertension Hold BP meds for now in light of soft BP GERD PPI mental health continue home medications DVT prophyalxis with SCD boots Full code 2 inpatient midnights for treatment of new brain mass requiring IV steroids Time Spent With Patient Time: Total time managing care of this patient today ____ minutes. Quality Stroke Does the patient have a stroke diagnosis?: No VTE Prior VTE?: No VTE Risk Level:: Medical - moderate - high VTE Device Contraindication: N/A - Device Ordered VTE Drug Contraindication: Treatment Not Indicated
--- NOTE | 2022-10-25 13:02 | PHA.MEDREC ---
Pharmacy Consult ? Medication Reconciliation Pharmacy has completed the medication reconciliation. Spoke to pt's daughter. She currently does not believe that her mother is on flovent
--- NOTE | 2022-10-25 16:00 | MHC.RECOVRN ---
Late entry: Met with pt briefly in ED prior to moving to room 452 after consult placed to Addiction Medicine for heroin use. Pt admitted to [facility] for brain mass. Pt laying in bed, awake, alert, easily engages in conversation. Pt reports being on methadone through [facility] x 1 year, 70 mg daily, receives take home bottles. Pt reports using heroin, 1 bundle daily, IN and IM. Pt reports had been using IM in shoulder but began developing wounds so returned to IN use. Pt is not experiencing withdrawal at this time. Denies questions or concerns for t/w. Discussed with Sarah Dodd APRN.
--- NOTE | 2022-10-25 16:34 | PC.NURSE ---
PT WAS OFFERED A SANDWICH, SWALLOWING FINE, NOTED LEFT SIDED NEGLECT.
[2022-10-25] MEDS: 0.9 % Sodium Chloride Flush 3 ML SYRINGE IVFLUSH ×2 (16:37→21:15)
--- NOTE | 2022-10-25 18:13 | P.CNNE_ITS ---
History of Present Illness Data of Consult Service Date: 10/25/22 Primary Care Provider: Unknown Physician HPI Reason for consult: Brain mass This is a 67-year-old woman with history of lung cancer, pelvic mass, her oin/fentanyl abuse who presents with left facial droop and left lower extremity weakness. According to her daughter the patient was at her baseline in August 2022. Over the last 2 weeks the patient has noted some speech problems and weakness. Her daughter stated that in the last few days the patient has been calling her at all hours of the night and leaving messages, which is unlike her. She uses heroin regularly over 2 years when she relapsed after her lobectomy for lung cancer. Her Chest and abd CT are negative. Brain CT shows a 3 cm mass in the right frontal lobe with surrounding vasogenic edema and 0.9 cm leftward midline shift. Review of Systems Review of Systems: Denies any recent fever chills or decrease in appetite respiratory denies any shortness of breath coverage production cardiovascular denies chest pain gastrointestinal denies any dysphagia abdominal pain nausea vomiting or diarrhea genitourinary denies any dysuria frequency or hematuria musculoskeletal denies any joint pain or swelling neuropsych reports slurred speech, feeling off balance, upper and lower extremity weakness and facial droop all other systems reviewed are negative PMFSH Past Medical History Medical History No pertinent past medical history Surgical History Surgical History No pertinent past surgical history Social History Social History (Updated 10/25/22 @ 13:08 by Arti Yousif NP) Household Members: None Substance Use Type: Heroin Substance Use Type Other:: Fentanyl Substance Use Frequency: Daily Last Used Substance: Just Prior to Admission Last Used Substance Other:: Sniffing and injecting Advance Directives: Yes Advance Directives Information Provided: Yes Advance Directives on File: No Meds Allergies Allergy/AdvReac Type Severity Reaction Status Date / Time elastic Allergy Unknown Uncoded 10/25/22 09:25 Active Medications: Current Medications Acetaminophen (Acetaminophen 325 Mg Tablet) 650 mg PO Q6H PRN PRN Reason: Pain, Mild (Pain Scale 1-3) Albuterol Sulfate (Albuterol Sulfate 90 Mcg 8 Gm Inhaler) 2 puff INHALE QID PRN PRN Reason: wheezing Calcium Carbonate/Cholecalciferol (Calcium + Vitamin D 250 Mg Tablet) 500 mg PO BID [facility] Clonazepam (Clonazepam 0.125 Mg Tab.Rapdis) 0.125 mg PO BEDTIME PRN PRN Reason: Anxiety Dexamethasone Sodium Phosphate (Dexamethasone Sod Phosphate 4 Mg/Ml Vial) 8 mg IVPUSH BID [facility] Fluticasone Propionate (Fluticasone Propionate Nasal 16 Gm [place]) 1 spray NOSTRIL-B DAILY [facility] Ceftriaxone Sodium 1 gm/ (Sodium Chloride) 50 mls @ 100 mls/hr IV Q24H [facility] Lisinopril (Lisinopril 10 Mg Tablet) 10 mg PO DAILY [facility]; Protocol Melatonin (Melatonin 3 Mg Tablet) 6 mg PO BEDTIME PRN PRN Reason: insomnia Nicotine Polacrilex (Nicotine Polacrilex 2 Mg Gum) 2 mg BUCCAL Q2H PRN PRN Reason: withdrawal Non-Formulary Medication (Tiotropium-Olodaterol [Stiolto Respimat]) 2 puff INHALE DAILY [facility] Omeprazole (Omeprazole 20 Mg Capsule.Dr) 20 mg PO DAILY@0630 [facility] Ondansetron HCl (Ondansetron Hcl 4 Mg/2 Ml Vial) 4 mg IVPUSH Q8H PRN PRN Reason: Nausea and Vomiting Sodium Chloride (0.9 % Sodium Chloride Flush 3 Ml Syringe) 3 ml IVFLUSH QSHIFT [facility] Last Admin: 10/25/22 16:37 Dose: 3 ml Home Medications Medication Instructions Recorded Confirmed Last Taken Type albuterol sulfate 90 mcg/actuation 2 puff inhalation QID PRN wheezing 10/25/22 10/25/22 Unknown History aerosol inhaler (Ventolin HFA) alendronate 70 mg tablet 70 mg PO TU 10/25/22 10/25/22 Unknown History calcium carbonate 600 mg-vitamin 1 tab PO BID 10/25/22 10/25/22 Unknown History D3 10 mcg (400 unit) tablet clonazepam 0.125 mg disintegrating 0.125 mg PO BEDTIME PRN Anxiety 10/25/22 10/25/22 Unknown History tablet fluticasone propionate 50 1 spray intranasal DAILY 10/25/22 10/25/22 Unknown History mcg/actuation nasal spray,suspension lisinopril 10 mg tablet 10 mg PO DAILY 10/25/22 10/25/22 Unknown History melatonin 3 mg tablet 6 mg PO BEDTIME PRN insomnia 10/25/22 10/25/22 Unknown History methadone 10 mg/mL oral 70 mg PO DAILY 10/25/22 10/25/22 History concentrate (Methadone Intensol) omeprazole 20 mg capsule,delayed 20 mg PO DAILY 10/25/22 10/25/22 Unknown History release tiotropium 2.5 mcg-olodaterol 2.5 2 puff inhalation DAILY 10/25/22 10/25/22 Unknown History mcg/actuation mist for inhalation (Stiolto Respimat) Physical Exam Vital Signs: Vital Signs: Last Vital Signs Temp 97.5 F 10/25/22 14:06 Pulse 64 10/25/22 14:35 Resp 15 10/25/22 14:06 BP 117/70 10/25/22 14:35 Pulse Ox 96 10/25/22 14:35 O2 Del Method Room Air 10/25/22 14:06 BMI result Body Mass Index 23.4 Neuro: Other: Alert an doriented. Mil ddysarthria an dslight left facial droop an dleft sided weakness 4+/5 Plantars are flexor Results Labs 10/25/22 09:43 10/25/22 09:43 Labs: Short CBC 10/25/22 Range/Units 09:43 WBC 5.9 (4.8-10.8) X10*3/uL Hgb 13.7 (12.0-16.0) g/dl Hct 40.6 (37.0-47.0) % Plt Count 155 L (160-400) X10*3/uL BMP 10/25/22 09:43 Sodium 142 Potassium 3.6 Chloride 105 Carbon Dioxide 23 BUN 11 Creatinine 0.78 Calcium 9.6 Urine 10/25/22 Range/Units 10:56 Urine Color Dark Yellow Urine Appearance Turbid Urine pH 6.0 (5.0-9.0) Ur Specific [place] >= 1.030 H (1.005-1.025) Urine Protein Trace (Neg-Trace) mg/dL Urine Glucose (UA) Negative (Negative) mg/dL Assessment and Plan (1) Brain mass: Status: Acute Primary brain tumor vs abscess in view of heroin use , v smetastaic lesion because of previous lung CA. ( but appears to be a single lesion.) Plan MRI of brain with and without tiffanie. Decadron 10mg IV q6h. May need neurosurgical consultation depending upon results of MRI. Time Spent With Patient Time: Total time managing care of this patient today ____ minutes. Procedures Date of Service Date of Service: 10/25/22
[2022-10-25] MEDS: Nicotine Polacrilex 2 MG GUM BUCCAL (19:37)
--- NOTE | 2022-10-25 19:48 | PC.NURSE ---
,educated with Ativan and given nicotine gum - pt has departed the ed for MRI report was given to [facility] RN David
--- NOTE | 2022-10-25 20:25 | MHC.CM.PN ---
IMM 10/25. CM met with admitted patient with bed assignment pending. Pt daughter is at bedside. Pt lives alone and has been independent/driving until 5 days ago. Pt with l sided weakness. Pt hx lung CA and substance abuse. Pt admits to heroin/fentanyl abuse. Tox screen positive for opiates, fentanyl and benzos. Been using 2 bundles/day for past 2 years. Pt on Methadone 70 mg/daily from [facility]. No DME/services. [employer] x5. PCP Mavis SMALLWOOD at [facility]. No HCP on file. HCP reviewed, completed and signed. Copies given. Uploaded into [employer] and [facility] [employer]. HCP/daughter Magda Mathis ([phone]). Pt diagnosed today with brain mass. Will have MRI. PT recommends trial of STR. Local referrals placed.Pt did not participate in THRIVE assessment, basically not answering most questions at this time. Pt concerned about new diagnosis and concerned about ongoing plan of care. Daughter states patient has been very independent until 5 days ago when she had facial droop, left sided weakness and some confusion. PT has seen patient and is recommending trial of STR. Pt is a bit overwhelmed with new diagnosis of brain mass and moving forward with MRI and plan of care. Pt has been seen by neurology. Encouraged patient to take one step at a time. Pt aware that CM will see patient for discharge planning when transferred to floor. CM will follow for discharge planning.
[2022-10-25] MEDS: dexAMETHasone sod phosphate 4 MG/ML VIAL 8 MG IVPUSH (21:15)
[2022-10-25] MEDS: Calcium + Vitamin D 250 MG TABLET 500 MG PO (21:15)
[2022-10-25] MEDS: Nicotine 14 MG PATCH.TD24 TRANSDERMA (23:18)
[2022-10-26 03:14] VITALS: BP 116/67; PULSE 59; RESP 18; TEMP 36.4; O2SAT 96
[2022-10-26] MEDS: LORazepam 1 MG TABLET PO ×2 (04:29→09:55)
[2022-10-26 05:47] LABS: Hematocrit 38.2 % (37.0-47.0); Mean Corpuscular Hemoglobin 30.4 pg (27.0-33.0); Mean Corpuscular Volume 89.5 fL (80.0-98.0); Mean Platelet Volume 11.2 fL (9.4-12.3); Platelet Count 130 X10*3/uL (160-400); Red Blood Count 4.27 X10*6/uL (4.20-5.50); Red Cell Distribution Width 12.7 % (11.0-16.0); White Blood Count 5.4 X10*3/uL (4.8-10.8)
[2022-10-26 06:00] LABS: Alanine Aminotransferase 8 U/L (0-31); Albumin Level 3.2 g/dL (3.5-5.0); Alkaline Phosphatase 37 U/L (39-117); Anion Gap 14 (12-20); Aspartate Amino Transferase 13 U/L (5-31); Bilirubin Total 0.7 mg/dL (0.0-1.0); Blood Urea Nitrogen 9 mg/dL (9-16); Calcium 9.6 mg/dL (8.4-10.2); Carbon Dioxide 24 mmol/L (22-29); Chloride 105 mmol/L (96-108); Creatinine Clr Calc Pharmacy 57.2; Estimated Glomerular Filt Rate > 60; Glucose Random 189 mg/dL (60-115); Potassium 3.5 mmol/L (3.3-5.1); Sodium 139 mmol/L (135-145); Total Protein 6.2 g/dL (6.5-8.0)
[2022-10-26] MEDS: Omeprazole 20 MG CAPSULE.DR PO (06:08)
[2022-10-26 07:12] VITALS: BP 130/68; PULSE 66; RESP 20; TEMP 36.3; O2SAT 95
--- NOTE | 2022-10-26 08:19 | ECG_ITS ---
Test Reason : qtc Blood Pressure : / mmHG Vent. Rate : 085 BPM Atrial Rate : 085 BPM P-R Int : 142 ms QRS Dur : 072 ms QT Int : 318 ms P-R-T Axes : 064 022 017 degrees QTc Int : 378 ms Normal sinus rhythm Low voltage QRS Borderline ECG When compared with ECG of 25-OCT-2022 09:38, Nonspecific T wave abnormality, worse in Inferior leads QT has shortened Referred By: Clementine Burnett Electronically Signed By:CRISTOBAL MERCEDES
--- NOTE | 2022-10-26 08:23 | HE.PHANOTE ---
RE METHADONE 70 MG FROM [facility], LAST SEEN 10/21 BUT GIVEN 6 TAKE HOME BOTTLES JOSE LUIS
[2022-10-26] MEDS: 0.9 % Sodium Chloride Flush 3 ML SYRINGE IVFLUSH (08:54)
[2022-10-26] MEDS: methADONE HCl 20 MG/2 ML ORAL.CONC 70 MG PO (08:55)
[2022-10-26] MEDS: dexAMETHasone sod phosphate 4 MG/ML VIAL 10 MG IVPUSH ×2 (08:56→14:20)
[2022-10-26] MEDS: Calcium + Vitamin D 250 MG TABLET 500 MG PO (08:56)
[2022-10-26] MEDS: Nicotine 14 MG PATCH.TD24 TRANSDERMA (08:57)
[2022-10-26] MEDS: lisinopriL 10 MG TABLET PO (08:57)
--- NOTE | 2022-10-26 10:30 | PM.NEUROPN ---
Subjective Subjective Date of Service: 10/26/22 Interval History: No change Critical Care Time (minutes): 0 Physical Exam Vital Signs: Vital Signs: Last Vital Signs Temp 97.3 F 10/26/22 07:12 Pulse 66 10/26/22 07:12 Resp 20 10/26/22 07:12 BP 130/68 10/26/22 07:12 Pulse Ox 95 10/26/22 07:12 O2 Del Method Room Air 10/26/22 07:12 BMI result Body Mass Index 23.4 Neuro: Other: Slight thick speech. left facial droop and left sided weakness 4/5 in UE and 4+/5 in LE. Plantars are flexor Objective Data Labs 10/26/22 05:17 10/26/22 05:17 Labs: Laboratory Results - last 24 hr 10/25/22 10/25/22 10/25/22 09:43 10:56 10:56 WBC RBC Hgb Hct MCV MCH MCHC RDW Plt Count MPV Absolute Nucleated RBC Nucleated RBC % (auto) Sodium 142 Potassium 3.6 Chloride 105 Carbon Dioxide 23 Anion Gap 18 BUN 11 Creatinine 0.78 Estim Creat Clear Calc 52.8 Estimated GFR > 60 Random Glucose 112 Calcium 9.6 Total Bilirubin AST ALT Alkaline Phosphatase Total Protein Albumin Urine Color Dark Yellow Urine Appearance Turbid Urine pH 6.0 Ur Specific [place] >= 1.030 H Urine Protein Trace Urine Glucose (UA) Negative Urine Ketones 15 Urine Blood Negative Urine Nitrite Negative Ur Leukocyte Esterase Moderate (2+) H Urine RBC 6-10 H Urine WBC 21-50 H Ur Squamous Epith Cells >20 Calcium Oxalate Crystal Present Urine Bacteria 4+ Hyaline Casts 0-2 Urine Opiates Screen POSITIVE H Urine Fentanyl Screen POSITIVE H Ur Barbiturates Screen Not Detected Ur Phencyclidine Scrn Not Detected Ur Amphetamines Screen Not Detected U Benzodiazepines Scrn POSITIVE H Urine Cocaine Screen Not Detected U Marijuana (THC) Screen Not Detected 10/26/22 10/26/22 05:17 05:17 WBC 5.4 RBC 4.27 Hgb 13.0 Hct 38.2 MCV 89.5 MCH 30.4 MCHC 34.0 RDW 12.7 Plt Count 130 L MPV 11.2 Absolute Nucleated RBC 0.000 Nucleated RBC % (auto) 0.0 Sodium 139 Potassium 3.5 Chloride 105 Carbon Dioxide 24 Anion Gap 14 BUN 9 Creatinine 0.72 Estim Creat Clear Calc 57.2 Estimated GFR > 60 Random Glucose 189 H Calcium 9.6 Total Bilirubin 0.7 AST 13 ALT 8 Alkaline Phosphatase 37 L Total Protein 6.2 L Albumin 3.2 L Urine Color Urine Appearance Urine pH Ur Specific [place] Urine Protein Urine Glucose (UA) Urine Ketones Urine Blood Urine Nitrite Ur Leukocyte Esterase Urine RBC Urine WBC Ur Squamous Epith Cells Calcium Oxalate Crystal Urine Bacteria Hyaline Casts Urine Opiates Screen Urine Fentanyl Screen Ur Barbiturates Screen Ur Phencyclidine Scrn Ur Amphetamines Screen U Benzodiazepines Scrn Urine Cocaine Screen U Marijuana (THC) Screen Microbiology Microbiology Results: Microbiology 10/25/22 Unknown Urine clean catch - Urine alvarez top Urine Culture - Final Progress Note: A&P Assessment and plan (1) Brain mass: Status: Acute Assessment and Plan: MRI most likely a solitary metastasis and less likely primary brain tumor. Plan Recommendations: Neurosurgical consult for excision and pathology. Continue Decadron 10mg IV q6h Time Spent With Patient Time: Total time managing care of this patient today ____ minutes. Procedures Date of Service Date of Service: 10/26/22 Quality Stroke Does the patient have a stroke diagnosis?: No VTE Prior VTE?: No VTE Risk Level:: Medical - moderate - high VTE Device Contraindication: N/A - Device Ordered VTE Drug Contraindication: Treatment Not Indicated
[2022-10-26 10:43] VITALS: BP 130/68; PULSE 66; O2SAT 95
--- NOTE | 2022-10-26 10:50 | HO.PM.IMPN ---
Subjective Subjective Date of Service: 10/26/22 Interval History: Seen and evaluated this morning Feels no significant different, still with facial droop and left sided weakness No other overnight events Review of Systems Review of Systems: Yes all other systems are reviewed and are negative Physical Exam Vital Signs: Vital Signs: Last Vital Signs Temp 97.3 F 10/26/22 07:12 Pulse 66 10/26/22 10:43 Resp 20 10/26/22 07:12 BP 130/68 10/26/22 10:43 Pulse Ox 95 10/26/22 10:43 O2 Del Method Room Air 10/26/22 07:12 BMI result Body Mass Index 23.4 Const: Other: Constitutional : Awake, interactive, not in distress Neck : Normal inspection, Supple Cardiovascular : RRR, no JVP, no lower extremity edema Respiratory : good bilateral air entry, no crackles, wheezes or rhonchi Gastrointestinal: soft, lax, Normal bowel sounds, Non tender Skin : Warm, Dry Neurological : Alert & oriented x3, left sided facial drop, 4 strength LUE, 4+ LLE , CN 2-12 within normal Objective Data Active Medications Acetaminophen (Acetaminophen 325 Mg Tablet) 650 mg PO Q6H PRN PRN Reason: Pain, Mild (Pain Scale 1-3) Albuterol Sulfate (Albuterol Sulfate 90 Mcg 8 Gm Inhaler) 2 puff INHALE QID PRN PRN Reason: wheezing Calcium Carbonate/Cholecalciferol (Calcium + Vitamin D 250 Mg Tablet) 500 mg PO BID [facility] Last Admin: 10/26/22 08:56 Dose: 500 mg Documented By: BITA Clonazepam (Clonazepam 0.125 Mg Tab.Rapdis) 0.125 mg PO BEDTIME PRN PRN Reason: Anxiety Last Admin: 10/26/22 00:57 Dose: 0.125 mg Documented By: BRANDO Dexamethasone Sodium Phosphate (Dexamethasone Sod Phosphate 4 Mg/Ml Vial) 10 mg IVPUSH Q6H [facility] Last Admin: 10/26/22 08:56 Dose: 10 mg Documented By: BITA Fluticasone Propionate (Fluticasone Propionate Nasal 16 Gm [place]) 1 spray NOSTRIL-B DAILY [facility] Ceftriaxone Sodium 1 gm/ (Sodium Chloride) 50 mls @ 100 mls/hr IV Q24H [facility] Lisinopril (Lisinopril 10 Mg Tablet) 10 mg PO DAILY [facility]; Protocol Last Admin: 10/26/22 08:57 Dose: 10 mg Documented By: BITA Lorazepam (Lorazepam 1 Mg Tablet) 1 mg PO Q4H PRN PRN Reason: anxiety Last Admin: 10/26/22 09:55 Dose: 1 mg Documented By: BITA Melatonin (Melatonin 3 Mg Tablet) 6 mg PO BEDTIME PRN PRN Reason: insomnia Methadone HCl (Methadone Hcl 20 Mg/2 Ml Oral.Conc) 70 mg PO DAILY [facility] Last Admin: 10/26/22 08:55 Dose: 70 mg Documented By: BITA Nicotine (Nicotine 21 Mg Patch.Td24) 21 mg TRANSDERMA DAILY [facility] Nicotine Polacrilex (Nicotine Polacrilex 2 Mg Gum) 2 mg BUCCAL Q2H PRN PRN Reason: withdrawal Last Admin: 10/25/22 19:37 Dose: 2 mg Documented By: PAULA Non-Formulary Medication (Tiotropium-Olodaterol [Stiolto Respimat]) 2 puff INHALE DAILY [facility] Omeprazole (Omeprazole 20 Mg Capsule.Dr) 20 mg PO DAILY@0630 [facility] Last Admin: 10/26/22 06:08 Dose: 20 mg Documented By: BRANDO Ondansetron HCl (Ondansetron Hcl 4 Mg/2 Ml Vial) 4 mg IVPUSH Q8H PRN PRN Reason: Nausea and Vomiting Oxycodone HCl (Oxycodone Hcl Immed Release 5 Mg Tablet) 10 mg PO Q4H PRN PRN Reason: withdrawal Sodium Chloride (0.9 % Sodium Chloride Flush 3 Ml Syringe) 3 ml IVFLUSH QSHIFT [facility] Last Admin: 10/26/22 08:54 Dose: 3 ml Documented By: BITA Labs 10/26/22 05:17 10/26/22 05:17 Labs: Laboratory Results - last 24 hr 10/25/22 10/25/22 10/26/22 10:56 10:56 05:17 MCV 89.5 MCH 30.4 MCHC 34.0 RDW 12.7 Plt Count 130 L MPV 11.2 Absolute Nucleated RBC 0.000 Nucleated RBC % (auto) 0.0 Anion Gap Estim Creat Clear Calc Estimated GFR Random Glucose Calcium Total Bilirubin AST ALT Alkaline Phosphatase Total Protein Albumin Urine Color Dark Yellow Urine Appearance Turbid Urine pH 6.0 Ur Specific [place] >= 1.030 H Urine Protein Trace Urine Glucose (UA) Negative Urine Ketones 15 Urine Blood Negative Urine Nitrite Negative Ur Leukocyte Esterase Moderate (2+) H Urine RBC 6-10 H Urine WBC 21-50 H Ur Squamous Epith Cells >20 Calcium Oxalate Crystal Present Urine Bacteria 4+ Hyaline Casts 0-2 Urine Opiates Screen POSITIVE H Urine Fentanyl Screen POSITIVE H Ur Barbiturates Screen Not Detected Ur Phencyclidine Scrn Not Detected Ur Amphetamines Screen Not Detected U Benzodiazepines Scrn POSITIVE H Urine Cocaine Screen Not Detected U Marijuana (THC) Screen Not Detected 10/26/22 05:17 MCV MCH MCHC RDW Plt Count MPV Absolute Nucleated RBC Nucleated RBC % (auto) Anion Gap 14 Estim Creat Clear Calc 57.2 Estimated GFR > 60 Random Glucose 189 H Calcium 9.6 Total Bilirubin 0.7 AST 13 ALT 8 Alkaline Phosphatase 37 L Total Protein 6.2 L Albumin 3.2 L Urine Color Urine Appearance Urine pH Ur Specific [place] Urine Protein Urine Glucose (UA) Urine Ketones Urine Blood Urine Nitrite Ur Leukocyte Esterase Urine RBC Urine WBC Ur Squamous Epith Cells Calcium Oxalate Crystal Urine Bacteria Hyaline Casts Urine Opiates Screen Urine Fentanyl Screen Ur Barbiturates Screen Ur Phencyclidine Scrn Ur Amphetamines Screen U Benzodiazepines Scrn Urine Cocaine Screen U Marijuana (THC) Screen Microbiology Microbiology Results: Microbiology 10/25/22 Unknown Urine Culture - Final Urine clean catch - Urine alvarez top Assessment and Plan (1) Brain mass: Status: Acute (2) Vasogenic brain edema: Status: Acute (3) Acute lower UTI: Status: Acute (4) Midline shift of brain: Status: Acute Plan 67-year-old woman with history of lung cancer, pelvic mass, heroin/fentanyl abuse admitted with left-sided facial droop and left lower extremity weakness secondary to brain mass left sides facial droop and left sided weakness 2/2 Brain Mass MRI reporting 3.5 cm solitary mass in right frontal lobe with vasogenic edema suggestive of metastatic disease and midline shift of 8 mm with mild uncus migration Continue IV steroids Neurology rec IV Dexamethasone and neurosurgery evaluation Oncology consult Neruo checks PT/OT Plan to transfer to tertiary center for possible excision or radiation therapy UTI Rocephin follow urine cx Opioid abuse uses 2 bundles of heroin a day addiction team consult Hypertension Hold BP meds for now in light of soft BP GERD PPI Smoking NRT mental health continue home medications DVT prophyalxis with SCD boots Full code Will need overnight hospital stay for IV dexamethasone pending transfer to a tertiary center Time Spent With Patient Time: Total time managing care of this patient today ____ minutes. Quality Stroke Does the patient have a stroke diagnosis?: No VTE Prior VTE?: No VTE Risk Level:: Medical - moderate - high VTE Device Contraindication: N/A - Device Ordered VTE Drug Contraindication: Treatment Not Indicated
[2022-10-26 11:27] VITALS: BP 124/76; PULSE 75; RESP 20; TEMP 36.1; O2SAT 96
--- NOTE | 2022-10-26 12:09 | PM.HEMONCCN ---
Subjective - Subjective Chief complaint: Left-sided weakness Patient: new to practice Consult date: 10/26/22 Requesting Physician: Dr. Burnett Primary Care Provider: Unknown Physician HPI - Consult Narrative Reason for consult: Brain tumor Narrative: Tari Eaton is a 67 year old female with history of lung cancer presenting with left-sided facial droop and left-sided weakness that started about 5 days ago. Patient has history of lung cancer for which she underwent right lobectomy in 2020 at [facility]. She was told that it was stage I and did not require any adjuvant treatment. She was being monitored for small pulmonary nodules and emphysema by her CT surgeon. She was doing well until about a week ago. She does say that she has had a history of dysphagia going on for at least 1 year. She denies loss of appetite or any significant weight loss. No nausea or emesis. She has had some headaches for about 2 weeks. She denies dysphonia, worsening cough or chest pain. Abdominal discomfort or change in bowel habits. No loss of bladder or bowel control. She reports weakness in her left upper and lower extremity and her daughter felt that she may be having a stroke and daughter to the emergency department. Review of Systems - Constitutional Reports as per HPI, Denies fatigue, Denies lack of energy, Denies malaise, Denies weight loss [facility] Medical History: Medical History (Last Reviewed 10/26/22 @ 11:12 by Carly Kerr, OTR-L) No pertinent past medical history Surgical History: Surgical History (Last Reviewed 10/26/22 @ 11:12 by Carly Kerr, OTR-L) No pertinent past surgical history Social History: Social History (Last Updated 10/25/22 @ 13:08 by Arti Yousif NP) Living Situation History: Household Members: None Housing: House Alcohol History Details: 1. How often do you have a drink containing alcohol?: a. Never AUDIT-C Alcohol total score: 0 Currently Displaying Signs/Symptoms of Alcohol Withdrawal: No Tobacco History: Patient Tobacco Use Status: Current everyday Tobacco Cigarette Packs Per Day: 1 Substance Use History: Use of substances other than those prescribed or required for medical reasons: Yes Substance Use Type: Amphetamines Substance Use Type: Heroin Substance Use Type Other:: Fentanyl Substance Use Frequency: Daily Last Used Substance: Just Prior to Admission Last Used Substance Other:: Sniffing and injecting Currently Displaying Signs/Symptoms of Drug Intoxication Withdrawal: No Domestic Abuse History: Have you been hit, kicked, punched, or otherwise hurt by someone within the past year? If so, by whom?: No Is there a partner from a previous relationship who is making you feel unsafe now?: No Advance Directives: Advance Directives: Yes Advance Directives Information Provided: Yes Advance Directives on File: No Advance Directives Date on File: 10/25/22 Homicidal Assessment: Do you have thoughts of harming others: None Do you have a plan to hurt others: No Plan Nutrition Assessment: Patient : No Occupation Assessmet: service: No Home Medications and Allergies Current Medications: Current Medications Acetaminophen (Acetaminophen 325 Mg Tablet) 650 mg PO Q6H PRN PRN Reason: Pain, Mild (Pain Scale 1-3) Albuterol Sulfate (Albuterol Sulfate 90 Mcg 8 Gm Inhaler) 2 puff INHALE QID PRN PRN Reason: wheezing Calcium Carbonate/Cholecalciferol (Calcium + Vitamin D 250 Mg Tablet) 500 mg PO BID [facility] Last Admin: 10/26/22 08:56 Dose: 500 mg Clonazepam (Clonazepam 0.125 Mg Tab.Rapdis) 0.125 mg PO BEDTIME PRN PRN Reason: Anxiety Last Admin: 10/26/22 00:57 Dose: 0.125 mg Dexamethasone Sodium Phosphate (Dexamethasone Sod Phosphate 4 Mg/Ml Vial) 10 mg IVPUSH Q6H [facility] Last Admin: 10/26/22 08:56 Dose: 10 mg Fluticasone Propionate (Fluticasone Propionate Nasal 16 Gm [place]) 1 spray NOSTRIL-B DAILY [facility] Last Admin: 10/26/22 11:11 Dose: Not Given Ceftriaxone Sodium 1 gm/ (Sodium Chloride) 50 mls @ 100 mls/hr IV Q24H [facility] Lisinopril (Lisinopril 10 Mg Tablet) 10 mg PO DAILY [facility]; Protocol Last Admin: 10/26/22 08:57 Dose: 10 mg Lorazepam (Lorazepam 1 Mg Tablet) 1 mg PO Q4H PRN PRN Reason: anxiety Last Admin: 10/26/22 09:55 Dose: 1 mg Melatonin (Melatonin 3 Mg Tablet) 6 mg PO BEDTIME PRN PRN Reason: insomnia Methadone HCl (Methadone Hcl 20 Mg/2 Ml Oral.Conc) 70 mg PO DAILY [facility] Last Admin: 10/26/22 08:55 Dose: 70 mg Nicotine (Nicotine 21 Mg Patch.Td24) 21 mg TRANSDERMA DAILY [facility] Nicotine Polacrilex (Nicotine Polacrilex 2 Mg Gum) 2 mg BUCCAL Q2H PRN PRN Reason: withdrawal Last Admin: 10/25/22 19:37 Dose: 2 mg Non-Formulary Medication (Tiotropium-Olodaterol [Stiolto Respimat]) 2 puff INHALE DAILY [facility] Omeprazole (Omeprazole 20 Mg Capsule.Dr) 20 mg PO DAILY@0630 [facility] Last Admin: 10/26/22 06:08 Dose: 20 mg Ondansetron HCl (Ondansetron Hcl 4 Mg/2 Ml Vial) 4 mg IVPUSH Q8H PRN PRN Reason: Nausea and Vomiting Oxycodone HCl (Oxycodone Hcl Immed Release 5 Mg Tablet) 10 mg PO Q4H PRN PRN Reason: withdrawal Sodium Chloride (0.9 % Sodium Chloride Flush 3 Ml Syringe) 3 ml IVFLUSH QSHIFT [facility] Last Admin: 10/26/22 08:54 Dose: 3 ml Home Medications Medication Instructions Recorded Confirmed Type albuterol sulfate 90 mcg/actuation 2 puff inhalation QID PRN wheezing 10/25/22 10/25/22 History aerosol inhaler (Ventolin HFA) alendronate 70 mg tablet 70 mg PO TU 10/25/22 10/25/22 History calcium carbonate 600 mg-vitamin 1 tab PO BID 10/25/22 10/25/22 History D3 10 mcg (400 unit) tablet clonazepam 0.125 mg disintegrating 0.125 mg PO BEDTIME PRN Anxiety 10/25/22 10/25/22 History tablet fluticasone propionate 50 1 spray intranasal DAILY 10/25/22 10/25/22 History mcg/actuation nasal spray,suspension lisinopril 10 mg tablet 10 mg PO DAILY 10/25/22 10/25/22 History melatonin 3 mg tablet 6 mg PO BEDTIME PRN insomnia 10/25/22 10/25/22 History methadone 10 mg/mL oral 70 mg PO DAILY 10/25/22 History concentrate (Methadone Intensol) omeprazole 20 mg capsule,delayed 20 mg PO DAILY 10/25/22 10/25/22 History release tiotropium 2.5 mcg-olodaterol 2.5 2 puff inhalation DAILY 10/25/22 10/25/22 History mcg/actuation mist for inhalation (Stiolto Respimat) Allergies Allergy/AdvReac Type Severity Reaction Status Date / Time elastic Allergy Unknown Uncoded 10/25/22 09:25 Physical Exam Vital signs: Vital Signs Temp 97.0 F 10/26/22 11:27 Pulse 75 10/26/22 11:27 Resp 20 10/26/22 11:27 BP 124/76 10/26/22 11:27 Pulse Ox 96 10/26/22 11:27 O2 Del Method Room Air 10/26/22 11:27 Intake & Output 10/25/22 10/26/22 10/26/22 18:59 06:59 18:59 Intake Total 50 / 50 Output Total 3 / 3 Balance 50 / 47 -3 47 Urine Output (Average ml/kg/hr) 0.00 Intake: Intake, IV Amount 50 / 50 cefTRIAXone sodium 1 gm In 0.9 50 / 50 % Sodium Chloride 50 ml @ 100 mls/hr IV ONCE ONE Rx#: [id number] Output: Output, Urine Amount 3 / 3 Other: Number of Unmeasured Voids 1 Urine Bedside Commode Urine Color Yellow Weight 56.245 kg Weight 56.245 kg Narrative: Left facial droop noted, alert and oriented x3. - Constitutional Present: no acute distress - Routine HEENT Exam Head: Present: normal inspection Eye: Absent: conjunctivae pale, scleral icterus - Routine Neck Exam Present: supple. Absent: lymphadenopathy - Routine Respiratory Exam Present: prolonged expiratory phase. Absent: accessory muscle use - Routine Cardiovascular Exam Cardiovascular: Present: RRR, S1, S2 - Routine Extremities Exam Absent: calf tenderness - Routine Skin Exam Present: intact - Routine Neurological Exam Present: alert, oriented X3, facial asymmetry Hem/Onc Consult Result - Labs CBC & Chem 7: 10/26/22 05:17 10/26/22 05:17 Labs: Short CBC 10/26/22 Range/Units 05:17 WBC 5.4 (4.8-10.8) X10*3/uL Hgb 13.0 (12.0-16.0) g/dl Hct 38.2 (37.0-47.0) % Plt Count 130 L (160-400) X10*3/uL BMP 10/26/22 05:17 Sodium 139 Potassium 3.5 Chloride 105 Carbon Dioxide 24 BUN 9 Creatinine 0.72 Calcium 9.6 Liver Function 10/26/22 Range/Units 05:17 Total Bilirubin 0.7 (0.0-1.0) mg/dL AST 13 (5-31) U/L ALT 8 (0-31) U/L Alkaline Phosphatase 37 L (39-117) U/L Albumin 3.2 L (3.5-5.0) g/dL Assessment and Plan Patient Active problem list reviewed?: Yes (1) Brain mass Status: Acute Assessment and plan: 1. This is a pleasant 67-year-old woman with history of stage I left lung cancer for which she underwent left lower lobectomy at [facility] in 2020 now presenting with right frontal lobe mass measuring 3 x 3.4 x 2.9 cm with extensive vasogenic edema suspicious for metastatic cancer. She is presenting with left facial droop and left-sided weakness, she has vasogenic edema around the mass and the 8 mm leftward midline shift. She has been started on high-dose steroids, dexamethasone 6 mg IV Q 6h. CT chest/abdomen and pelvis shows multiple subcentimeter pulmonary nodules most suspicious being a 1.8 x 1.3 cm left upper lobe nodule and a 8 x 10 mm right lower lobe nodule. But there is also mention of thickening of distal esophagus but no suspicious mass or mediastinal adenopathy. She did have a CT chest with contrast in May 2022 at [facility], it would be useful to compared with this prior scan. I do not think she would benefit from biopsy of lung nodule at this time. She will need evaluation by Neurosurgery. She is awaiting transfer to tertiary care center. She most likely has metastatic lung cancer with solitary brain metastasis. I thank you for this consultation. - Time Spent With Patient Time Spent with Patient (in minutes): 30
[2022-10-26] MEDS: cefTRIAXone sodium 1 GM in 0.9 % Sodium Chloride 50 ML IV (12:19)
--- NOTE | 2022-10-26 14:49 | PM.DS ---
DS: Providers Provider Date of Service: 10/26/22 Date of admission: 10/25/22 14:09 Primary care physician: Unknown Physician Consults: 10/25/22 11:27 Consult to Neurology Stat Consulting Provider: [facility] Reason for consultation: new brain mass Has provider been notified: Yes 10/25/22 13:47 Addiction Medicine Routine Consulting Provider: Addiction Covering Reason for consultation: heroin use 10/26/22 07:53 Consult to Hematology / Oncology Routine Consulting Provider: Eliza Murrell Reason for consultation: Brain tumer w vasogenic edema for eval and rec. DS: Diagnosis Discharge Diagnosis (1) Brain mass: Status: Acute (2) Midline shift of brain: Status: Acute (3) Vasogenic brain edema: Status: Acute (4) Acute lower UTI: Status: Acute DS: Summary Hospital Course Hospital Course: Admission note HPI 67-year-old woman with history of lung cancer, pelvic mass, heroin/fentanyl abuse admitted with left-sided facial droop and left lower extremity weakness secondary to brain mass According to her daughter the patient was at her baseline in August 2022. Over the last 2 weeks the patient has noted some speech problems and weakness. Her daughter stated that the last few days the patient has been calling her at all hours of the night and leaving messages, which is unlike her. She also uses heroin and has been using for over 2 years when she relapsed after her lobectomy for lung cancer. Chest and abc CT not showing any acute abnormality. In the ED, Brain CT shows a 3 cm mass to the right frontal lobe with vasogenic edema and 0.9 cm leftward midline shift with noted left sided facial droop and LUE weakness. Vital signs stable and no signs of infection.? She received decadron in the ED and she will be admitted for further management of symptomatic brain mass. Hospital course The patient was admitted for evaluation of left sides facial droop and left sided weakness secondary to 3.5cm Brain Mass in the right frontal lobe with surrounding Vasogenic edema and midline shift of 8 mm with mild uncus compression. Started on IV Dexamethason 10 mg Q6 hours as she was evaluated by neurology and retail asset protection specialist who recommended transfer to tertiary center for possible surgical intervention and neurosurgery evaluation. Found to have UTI on admission. Treated with Rocephin. pending final urine cx. ongoing Opioid abuse with reported 2 bundles of heroin a day. On Methadone 70 mg daily that was restarted inpatient. Addiction team consulted. Time Spent with Patient Time attestation: Total time managing care of this patient today ____ minutes. Discharge coordination time: Greater than 30 minutes Quality: Safe Use of Opioids Does Pt have an Active Cancer Diagnosis on the Problem List?: No Quality: Stroke Does the patient have a stroke diagnosis?: No Physical Exam Vital Signs: Vital Signs: Last Vital Signs Temp 97.0 F 10/26/22 11:27 Pulse 75 10/26/22 11:27 Resp 20 10/26/22 11:27 BP 124/76 10/26/22 11:27 Pulse Ox 96 10/26/22 11:27 O2 Del Method Room Air 10/26/22 11:27 BMI result Body Mass Index 23.4 Const: Other: Constitutional : Awake, interactive, not in distress Neck : Normal inspection, Supple Cardiovascular : RRR, no JVP, no lower extremity edema Respiratory : good bilateral air entry, no crackles, wheezes or rhonchi Gastrointestinal: soft, lax, Normal bowel sounds, Non tender Skin : Warm, Dry Neurological : Alert & oriented x3, left sided facial drop, 4 strength LUE, 4+ LLE DS: Data Data Completed and Pending Labs on day of discharge: Laboratory Results - last 24 hr 10/26/22 10/26/22 05:17 05:17 WBC 5.4 RBC 4.27 Hgb 13.0 Hct 38.2 MCV 89.5 MCH 30.4 MCHC 34.0 RDW 12.7 Plt Count 130 L MPV 11.2 Absolute Nucleated RBC 0.000 Nucleated RBC % (auto) 0.0 Sodium 139 Potassium 3.5 Chloride 105 Carbon Dioxide 24 Anion Gap 14 BUN 9 Creatinine 0.72 Estim Creat Clear Calc 57.2 Estimated GFR > 60 Random Glucose 189 H Calcium 9.6 Total Bilirubin 0.7 AST 13 ALT 8 Alkaline Phosphatase 37 L Total Protein 6.2 L Albumin 3.2 L Imaging MRI - head: Radiologist's impression: ITS Impressions Chest X-Ray 10/25/22 10:00 IMPRESSION: Mild prominence of the interstitial markings in the right mid and lower lung. No focal consolidation. Head CT 10/25/22 10:37 IMPRESSION: There is a rounded 3 cm mass within the subcortical white matter of the right frontal lobe with a broad margin of perilesional vasogenic edema. Mass effect within the right supratentorial compartment causes 0.9 cm leftward midline shift at the septum pellucidum. No overt mesencephalic compression. This critical result was discussed with Tylor May MD at 11:15 AM on 10/25/2022 and it was ascertained that the content and urgency of the report was understood at the time of direct communication. Abdomen/Pelvis CT 10/25/22 12:05 IMPRESSION: Mild intra and extrahepatic biliary duct dilatation. Cortical thinning or scarring of the left kidney. Diffuse bladder wall thickening. Severe atherosclerotic disease. Fleischner guidelines were followed. Chest CT 10/25/22 12:05 IMPRESSION: Severe emphysema. Multiple pulmonary nodules and parenchymal opacities. No suspicious are a 1.8 x 1.3 cm left upper lobe nodule and 8 x 10 mm right lower lobe nodule. Fleischner guidelines were followed. Brain MRI 10/25/22 20:33 IMPRESSION: Right frontal lobe mass measuring up to 3.4 cm with extensive surrounding vasogenic edema and mass effect resulting in 8 mm leftward midline shift and mild medialization of the right uncus. No other intraparenchymal lesions are identified. Differential considerations include solitary metastatic disease, less likely a high-grade glial neoplasm. Discharge Plan Discharge Anticipated Discharge Date/Time: 10/26/22 14:44 Patient Disposition: Xfer Acute Care Hospital Discharge Diagnosis: Brain mass with vasogenic edema Referrals: Physician,Josh J [Primary Care Provider] - 1 Week Discharge Medications: New ceftriaxone 1 gram Recon Soln 1 g IV Q24H Qty: 1 0RF nicotine 21 mg/24 hr Patch 24 Hour 21 mg transdermal DAILY Qty: 1 0RF dexamethasone sodium phosphate 4 mg/mL Solution 10 mg IVPUSH Q6H Qty: 1 0RF Continued alendronate 70 mg tablet 70 mg PO TU melatonin 3 mg tablet 6 mg PO BEDTIME PRN (Reason: insomnia) lisinopril 10 mg tablet 10 mg PO DAILY omeprazole 20 mg capsule,delayed release(DR/EC) 20 mg PO DAILY albuterol sulfate [Ventolin HFA] 90 mcg/actuation HFA aerosol inhaler 2 puff inhalation QID PRN (Reason: wheezing) fluticasone propionate 50 mcg/actuation spray,suspension 1 spray intranasal DAILY calcium carbonate-vitamin D3 600 mg-10 mcg (400 unit) tablet 1 tab PO BID Stiolto Respimat 2.5-2.5 mcg/actuation mist 2 puff inhalation DAILY methadone [Methadone Intensol] 10 mg/mL Concentrate 70 mg PO DAILY clonazepam 0.125 mg tablet,disintegrating 0.125 mg PO BEDTIME PRN (Reason: Anxiety) Discharge Orders: Discharge Order (Routine); Ordered 10/26/22 Ordered By: Clementine Burnett Diet: Advance to usual diet Activity on Discharge: As tolerated Stand Alone Forms: Patient Portal Discharge page Care Plan Goals: Read below Health Concerns: Read below Plan of Treatment: Read below Assessment: You were found to have large brain mass with surrounding edema that needs higher care and possible surgical intervention. treated with IV steroids to bring the edema down with a plan to transfer to [facility] for neurosurgery evaluation.
--- NOTE | 2022-10-26 14:50 | PM.EVENT ---
Event Note Date of Service: 10/26/22 Event Note: Addiction consult placed for patient with OUD seen by application integration engineer on 10/25. Please see note from that date Patient to be transferred to other facility Time Spent With Patient Time: Total time managing care of this patient today ____ minutes.
--- NOTE | 2022-10-26 15:03 | MHC.CM.PN ---
DP: PT WILL BE TRANSFERRED TO [facility] FOR POSSIBLE SURGICAL INTERVENTION/HIGHER LEVEL OF CARE DUE TO BRAIN MASS/EDEMA.
[2022-10-26 15:07] LABS: Lactate Dehydrogenase 182 U/L (122-220)
== END 2022-10-26 16:23 | disposition short-term general hospital (02) | DRG 55 ==
LOC: HO.ED 11:22 → HO.EDOVER 14:10 → HO.IMC 19:23
PROVIDERS: Internal Medicine; Admitting Provider Nurse Practitioner Acute Care; Emergency Provider Emergency Medicine; PCP Student in an Organized Health Care Education/Training Program; Visit Provider Student in an Organized Health Care Education/Training Program
DX: C79.31 Secondary malignant neoplasm of brain (principal); F11.20 Opioid dependence, uncomplicated; G81.94 Hemiplegia, unspecified affecting left nondominant side; N39.0 Urinary tract infection, site not specified; I10 Essential (primary) hypertension; F17.210 Nicotine dependence, cigarettes, uncomplicated; Z90.2 Acquired absence of lung [part of]; R91.1 Solitary pulmonary nodule; R13.10 Dysphagia, unspecified; K21.9 Gastro-esophageal reflux disease without esophagitis; J44.9 Chronic obstructive pulmonary disease, unspecified; R29.810 Facial weakness; Z71.6 Tobacco abuse counseling; Z85.118 Personal history of other malignant neoplasm of bronchus and lung; Z79.51 Long term (current) use of inhaled steroids; Z79.899 Other long term (current) drug therapy
CPT/HCPCS: 36415; 70450; 70553; 71045; 71260; 74177; 80048; 80053; 80307; 81001; 82378; 83615; 85025; 85027; 87086; 87635; 93005; 97112; 97116; 97163; 97167; 99285; A9585; J0696; J1100; Q9967

== ENCOUNTER 2022-12-26 10:09 | Inpatient (IN) | payer OTHER, SELFPAY ==
--- NOTE | ~2022-12-26 | CT_ITS ---
EXAMINATION: CT HEAD WITHOUT CONTRAST CLINICAL INFORMATION: Altered mental status. Low platelets. COMPARISON: CT brain 10/25/2022. MRI brain 10/25/2022 TECHNIQUE: Contiguous axial imaging was performed from the skull base to vertex without intravenous administration of contrast. This CT examination was performed using dose optimization techniques as appropriate, variously including the following: *Automated exposure control *Adjustment of mA and/or kV according to patient size (this includes techniques or standardized protocols for targeted exams where dose is matched to indication/reason for exam; i.e. extremities or head) *Use of iterative reconstruction technique DLP: 667 mGy-cm FINDINGS: Previously visualized right frontal lobe large mass has been surgically removed with a large cavity in the place. Surrounding edema has improved however there is some hypodensity in the vicinity likely representing cysts postsurgical changes and some edema. There is no midline shift. No other areas of hypodensity to suspect acute edema or acute infarct evolution. No intra-axial extra-axial bleed or midline shift seen. The lateral ventricles are symmetrical in size but enlarged with mild periventricular hypodensity likely chronic small vessel ischemic changes. Bone windows reveal right frontal craniotomy. Bilateral paranasal sinuses and mastoid air cells are well-aerated. CT/CT head/brain wo IV con IMPRESSION: 1. Right frontal craniotomy changes with resection of large right frontal lobe mass with a small cavity in its place. There is some hypodensity in the vicinity likely postsurgical changes and some edema. There is no midline shift. 2. There is no other areas of hypodensity to suspect acute edema or acute infarct evolution. 3. There is no intra-axial or extra-axial bleed.
--- NOTE | ~2022-12-26 | MR_ITS ---
MR BRAIN WITHOUT AND WITH CONTRAST CLINICAL INFORMATION: Brain tumor now with right-sided deficits and tremors. COMPARISON: Brain MRI 10/25/2022. TECHNIQUE: Multiplanar, multisequence MRI of the brain was obtained before and after the intravenous administration of 5 mL of Gadavist. FINDINGS: Interval postoperative changes following right frontoparietal craniotomy for resection of the previously seen enhancing mass within the subcortical white matter of the right frontal lobe. There is linear enhancement along the periphery of the resection cavity for which follow-up is advised to distinguish between evolving granulation/scar tissue versus residual/recurrent small volume tumor. No definite new remote enhancing lesions however post contrast imaging is very limited due to significant motion artifact. There is significantly improved edema within the right frontal white matter with decreased mass effect including resolution of previously seen leftward midline shift. There is background chronic microangiopathy. There is no hydrocephalus, extra-axial surface collection, or herniation. The major flow voids at the skull base are preserved. There is no acute infarct on diffusion-weighted imaging. There is no intracranial hemorrhage on the gradient recalled echo acquisition. The midline structures are normal. The cerebellar tonsils are normally positioned. The cerebellum and brainstem are normal. The craniocervical junction is normal. Osseous marrow signal intensity is homogenous. The visualized soft tissues are unremarkable. MR/MR head/brain wo/w con IMPRESSION: - Interval postoperative changes following right frontoparietal craniotomy for resection of the previously seen enhancing mass within the subcortical white matter of the right frontal lobe. There is linear enhancement along the periphery of the resection cavity for which follow-up is advised to distinguish between evolving granulation/scar tissue versus residual/recurrent small volume tumor. No definite new remote enhancing lesions however post contrast imaging is very limited due to significant motion artifact. - There is significantly improved edema within the right frontal white matter with decreased mass effect including resolution of previously seen leftward midline shift.
--- NOTE | ~2022-12-26 | XR_ITS ---
EXAMINATION: XR CHEST CLINICAL INFORMATION: Shortness of breath, hypoxic COMPARISON: 10/25/2022 TECHNIQUE: Frontal view of the chest was obtained. FINDINGS: Right IJ port catheter tip lies in the region of the cavoatrial junction. The lungs are hypoinflated. Coarsened appearance of the interstitium is noted bilaterally in keeping with sequelae of emphysema noted on prior CT. There is suggestion of mild superimposed heterogeneous parenchymal haziness in the right upper lobe. No evidence of pneumothorax or pleural effusion. Prior nodules identified on CT are not adequately delineated radiographically. The cardiomediastinal contour is unremarkable. No acute osseous findings are seen. XR/XR chest 1V IMPRESSION: Suggestion of mild heterogeneous parenchymal haziness in the right upper lobe, which could reflect developing consolidation in the proper clinical setting. Short-term radiographic follow-up would be helpful. Underlying emphysema noted.
[2022-12-26 10:15] VITALS: BP 104/83; PULSE 94; RESP 16; TEMP 36.6; O2SAT 96; BMI 22.6
--- OUTSIDE RECORDS SUMMARY | 2022-12-26 10:30 | XMS_ITS | Continuity of Care Document ---
Author Name Unknown Organization [facility] Address [address] [address]- Care Team Providers Care Shipping Track Supervisor Name Role Phone Divina MARINELLI, Adalberto Reeder Primary Care Physician Encounter [facility] Date(s): 05/19/21 - 07/07/21 [facility] [address] [address]- Attending Physician: Maude Kitchen MD Admitting Physician: Maude Kitchen MD Allergies, Adverse Reactions, Alerts Substance Reaction Severity Status Zoloft O/E - Parkinsonian tremor Ac tive Rubber Active Other Environmental Allergy 1 Active 1ELASTIC Immunizations Given and Recorded Vaccine Date Status Refusal Reason SARS-CoV-2 (COVID-19) mRNA BNT-162b2 vac 03/23/21 Recorded SARS-CoV-2 (COVID-19) mRNA BNT-162b2 vac 08/04/20 Recorded SARS-CoV-2 (COVID-19) mRNA BNT-162b2 vac 07/14/20 Recorded influenza virus vaccine, inactivated 02/18/21 Jatinder rded influenza virus vaccine, inactivated 1 02/23/20 Re corded influenza virus vaccine, inactivated 02/08/19 Give n influenza virus vaccine, inactivated 02/08/18 Give n influenza virus vaccine, inactivated 06/08/17 Jatinder rded influenza virus vaccine, inactivated 02/25/16 Give n influenza virus vaccine, inactivated 03/19/15 Give n influenza virus vaccine, inactivated 02/18/14 Give n influenza virus vaccine, inactivated 03/26/13 Give n influenza virus vaccine, inactivated 2 02/20/12 Gi precious influenza virus vaccine, inactivated 04/23/08 Give n zoster vaccine, inactivated 06/30/20 Recorded zoster vaccine, inactivated 3 02/23/20 Recorded Zoster Vaccine Live 02/23/20 Recorded Zoster Vaccine Live 05/23/16 Recorded Influenza Virus Vaccine (oldterm) 02/23/20 Recorde d tetanus-diphtheria toxoids (Td) 02/08/19 Given tetanus-diphtheria toxoids (Td) 4 08/23/10 Given Tet/Diphth/Acel, Pertussis (oldterm) 5 02/20/12 Gi precious pneumococcal 23-valent vaccine 6 02/16/11 Given Influenza Vaccine (oldterm) 7 01/27/11 Given Influenza Vaccine (oldterm) 8 06/02/09 Given Influenza Inactive (IM) (oldterm) 9 08/23/10 Given influ virus vac, H1N1, inactive(oldterm) 10 06/02/09 Given 1[facility] Comment[facility] 2Admin Note: vis 12/2011 3Result Comment[facility] 4Admin Note: vis 03/25/08 5Admin Note: vis 05/31/11 6Admin Note: vis given 7Admin Note: vis given 8Admin Note: vis 9Admin Note: vis 10Admin Note: vis Medications Aerochamber See Instructions, PRN, # 1 each, Refills 5, Tot. Refills 5, Maintenance, Wheezing/Shortness of Breath, as directed with MDI; Please substitute whichever spacer is covered by patient's insurance, Asthma, 08/12/19 15:29:00 EDT, Compound, 154.9, cm, 022... Start Date: 08/12/19 Status: Ordered albuterol CFC free 90 mcg/inh inhalation aerosol 1, puffs, Inhalation, 4 times a day, PRN, please substitute whichever albuterol product is covered by patient's insurance, # 18 Gm, Refills 11, Tot. Refills 11, Maintenance, 08/03/20 17:04:00 EDT, Aerosol, Route to Pharmacy Electronically, [id number]... Start Date: 08/03/20 Status: Ordered BiPAP Machine See Instructions, # 1 units, Maintenance, BiPAP 04/12 with a backup rate of 12 with a heated humidifier. 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 Start Date: 11/05/20 Status: Ordered Cane See Instructions, # 1 units, Maintenance, as directed for back pain, 09/04/18 15:08:30 EDT Start Date: 09/04/18 Status: Ordered chantix 1mg tablet See Instructions, TAKE 1 TABLET BY MOUTH TWICE A DAY AFTER MEALS TO BEGIN AFTER COMPLETING STARTER PACK, # 56 tablet, 3 Refills, Acute, [id number], 154.9, cm, 06/11/20 9:48:00 EST, Height, 58, kg, 06/05/20 12:02:00 EST, Dry Weight Start Date: 08/03/20 Status: Ordered clonazePAM 0.5 mg oral tablet See Instructions, 1 tablet By Mouth 2 times a day. Mass Pat Reviewed. Please fill on/after 07/07/21, # 60 tablet, 0 Refills, Maintenance, 06/29/21 9:32:00 EST, [id number], Partial fill upon patient request if the prescription is for a schedule I... Start Date: 06/29/21 Status: Ordered CPAP Equipment See Instructions, # 1 units, Refills 12, Tot. 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 Start Date: 06/30/17 Status: Ordered CPAP Equipment See Instructions, # 1 each, Refills 12, Tot. Refills 12, Maintenance, BiPAP supplies: Mask, tubing,filters, headgear, chin strap, heated water chamber Dx: ELSA G47.33 Length of need 99 months Please fax to [facility] fax # [phone], 07/02/20 14:50:0... Start Date: 07/02/20 Status: Ordered cyanocobalamin 500 mcg oral tablet 1 tablet = 500 mcg, By Mouth, Daily, on empty stomach, # 90 tablet, 3 Refills, Maintenance, 03/26/21 20:06:00 EST, Tablet, [id number], Partial fill upon patient request if the prescription isfor a schedule II opioid drug., 154.8, cm, 03/23/21... Start Date: 03/26/21 Status: Ordered Eucerin Unscented topical lotion See Instructions, apply to skin daily, dispense 1 jar, # 1 each, 11 Refills, Maintenance, 09/25/19 16:37:00 EDT, [id number], apply to skin daily, dispense 1 jar, 154.9, cm, 08/22/19 15:10:00 EDT, Height, 55.3, kg, 04/19/19 8:36:00 EST, Dry Weight Start Date: 09/25/19 Status: Ordered Eucerin Unscented topical lotion 1 application, Topically, 2 times a day, PRN for dry skin, # 252 mL, 11 Refills, Maintenance, 11/15/13 11:26:58, Lotion, 1 application Topically 2 times a day,PRN:for dry skin Start Date: 11/15/13 Status: Ordered Flonase 50 mcg/inh nasal spray 1 sprays, Nasal, Daily, # 16 Gm, 11 Refills, Maintenance, 11/05/20 17:11:00 EDT, [id number], 1 sprays Nasal Daily, 154.9, cm, 10/13/20 7:56:00 EDT, Height, 58, kg, 06/05/20 12:02:00 EST, Dry Weight Start Date: 11/05/20 Status: Ordered Flovent HFA 220 mcg/inh inhalation aerosol See Instructions, TAKE 2 PUFFS BY MOUTH TWICE A DAY RINSE MOUTH AND THROAT AFTER EACH USE, # 12 Unknown, 11 Refills, Soft Stop, 11/05/20 17:11:00 EDT, [id number], 154.9, cm, 10/13/20 7:56:00 EDT, Height, 58, kg, 06/05/20 12:02:00 EST, Dry Weight Start Date: 11/05/20 Status: Ordered Inderal LA 80 mg oral capsule, extended release 80 mg, 1, capsule, By Mouth, Daily, # 30 capsule, Refills 3, Tot. Refills 3, Maintenance, 06/23/20 10:00:00 EST, Route to Pharmacy Electronically, [facility]/pharm[facility] #[id number], To replace Topamax. Partial fillupon patient request if the prescription is for a... Start Date: 06/23/20 Status: Ordered lisinopril 10 mg oral tablet 10 mg, 1, tablet, By Mouth, Daily, # 90 tablet, Refills 3, Tot. Refills 3, Maintenance, 09/28/20 13:15:00 EDT, Route to Pharmacy Electronically, [facility]/pharm[facility] #[id number], 154.9, cm, 09/22/20 10:26:00 EDT, Height, 58, kg, 06/05/20 12:02:00 EST, Dry Weight Start Date: 09/28/20 Stop Date: 09/23/21 Status: Ordered melatonin 3 mg oral tablet 1 tablet = 3 mg, By Mouth, Daily at bedtime, PRN Insomnia, # 60 tablet, 11 Refills, Maintenance, 03/29/21 21:06:00 EST, [facility]/pharm[facility] #[id number], Partial fill upon patient request if the prescription is for a schedule II opioid drug., 154.8, cm, 03/23/21 11... Start Date: 03/29/21 Status: Ordered nicotine 2 mg oral transmucosal lozenge 1 lozenge = 2 mg, By Mouth, Every 2 hours, # 72 each, 11 Refills, Maintenance, 10/13/20 8:35:00 EDT, [facility]/pharm[facility] #[id number], Partial fill upon patient request if the prescription is for a schedule II opioid drug., 1 lozenge By Mouth Every 2 hours, 154.9,... Start Date: 10/13/20 Status: Ordered NuLYTELY with Flavor Packs oral powder for reconstitution See Instructions, 1 glass every 15-30 minutes until finished, # 4,000 mL, 0 Refills, Maintenance, 04/12/19 11:37:44 EST, REC Powder, 1 glass every 15-30 minutes until finished, 154.9, cm, 03/19/19 10:34:58 EST, Height Start Date: 04/12/19 Status: Ordered Nutritional Supplements See Instructions, # 90 each, Refills 3, Tot. Refills 3, Maintenance, [place] Ensure 1 can TID. Dx: C34.90, R63.4, 03/29/21 15:29:00 EST, Supply Start Date: 03/29/21 Status: Ordered Stiolto Respimat 60 ACT 2.5 mcg-2.5 mcg/inh inhalation aerosol 2 puffs, Inhalation, Every 24 hours, to replace tiotropium, # 4 Gm, 11 Refills, Maintenance, 11/05/20 17:11:00 EDT, Aerosol, [id number], 154.9, cm, 10/13/20 7:56:00 EDT, Height, 58, kg, 06/05/20 12:02:00 EST, Dry Weight Start Date: 11/05/20 Status: Ordered Ventolin HFA 108 mcg/inh inhalation aerosol with adapter 2 puffs, Inhalation, 4 times a day, PRN for wheezing, # 18 Gm, 11 Refills, Maintenance, 11/12/20 9:46:00 EDT, Aerosol, [id number], Partial fill upon patient request if the prescription is fora schedule II opioid drug. Please substitute brand... 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 Sleep Report(Confirmed) 05/25/11 Active Hep C: Cleared without treatment(Confirmed) Active Clubbing(Confirmed) Active Drug abuse: Suboxone via [facility](Confirmed) Active Esophageal reflux (GERD)(Confirmed) 05/09/12 Active JASON (generalized anxiety disorder)(Confirmed) Active HPV: Positive in 07/15; neg i n 01/15, negative in 10/16(Confirmed) Active Hypertension(Confirmed) 08/23/10 Active Lung cancer(Confirmed) Active Lung nodules(Confirmed) Active Opioid use disorder(Confirmed) Active Pelvic mass(Confirmed) Active Emphysema of lung: mixed emphysema/UIP(Confirmed) Active Major depressive disorder, [facility] [employer](Confirmed) Active Resting tremor(Confirmed) Active Tobacco abuse(Confirmed) Active Tubular adenoma of colon(Confirmed) 1 04/22/19 Active 1repeat screening colonoscopy in 2023 Social History Social History Type Response Smoking Status Smoker, current stat us unknown; Other: pt reports smoked 1-2ppd for 50 years; entered on: 05/12/20 Sex 1about 7 cigarettes daily
--- OUTSIDE RECORDS SUMMARY | 2022-12-26 10:30 | XMS_ITS | Continuity of Care Document ---
Author Name Unknown Organization [facility] ter Address [address] [place] [address]- Care Team Providers Care Pen And Pencil Repairer Name Role Phone Adalberto Murcia MD Primary Care Physician [place] [facility] [place] - 06/07/[address] [address]- Discharge Disposition: A-D/C Home Attending Physician: Kiley Wiseman MD Admitting Physician: Kiley Wiseman MD Referring Physician: Kiley Wiseman MD Allergies, Adverse Reactions, Alerts Substance Reaction Severity Status Zoloft O/E - Parkinsonian tremor Ac tive Other Environmental Allergy 1 Active 1ELASTIC Immunizations Given and Recorded Vaccine Date Status Refusal Reason zoster vaccine, inactivated 1 02/23/20 Recorded influenza virus vaccine, inactivated 2 02/23/20 Re corded influenza virus vaccine, inactivated 02/08/19 Give n influenza virus vaccine, inactivated 02/08/18 Give n influenza virus vaccine, inactivated 02/25/16 Give n influenza virus vaccine, inactivated 03/19/15 Give n influenza virus vaccine, inactivated 02/18/14 Give n influenza virus vaccine, inactivated 03/26/13 Give n influenza virus vaccine, inactivated 3 02/20/12 Gi precious influenza virus vaccine, inactivated 04/23/08 Give n Zoster Vaccine Live 02/23/20 Recorded Influenza Virus Vaccine (oldterm) 02/23/20 Recorde d tetanus-diphtheria toxoids (Td) 02/08/19 Given tetanus-diphtheria toxoids (Td) 4 08/23/10 Given Tet/Diphth/Acel, Pertussis (oldterm) 5 02/20/12 Gi precious pneumococcal 23-valent vaccine 6 02/16/11 Given Influenza Vaccine (oldterm) 7 01/27/11 Given Influenza Vaccine (oldterm) 8 06/02/09 Given Influenza Inactive (IM) (oldterm) 9 08/23/10 Given influ virus vac, H1N1, inactive(oldterm) 10 06/02/09 Given [facility] 3Admin Note: vis 12/2011 4Admin Note: vis 03/25/08 5Admin Note: vis 05/31/11 6Admin Note: vis given 7Admin Note: vis given 8Admin Note: vis 9Admin Note: vis 10Admin Note: vis Medications Aerochamber See Instructions, PRN, # 1 each, Refills 5, Tot. Refills 5, Maintenance, Wheezing/Shortness of Breath, as directed with MDI; Please substitute whichever spacer is covered by patient's insurance, Asthma, 08/12/19 15:29:00 EDT, Compound, 154.9, cm, 06/09... Start Date: 08/12/19 Status: Ordered Ativan 0.5 mg oral tablet 1 tablet = 0.5 mg, By Mouth, Once, call center operator to procedure. May repeat X 1, # 2 tablet, 0 Refills, Soft Stop, 04/24/20 11:56:00 EST, Tablet, [facility]/pharmacy #[id number], Partial fill upon patient request if the prescription is for a schedule II opioid drug., 154... Start Date: 04/24/20 Status: Ordered BiPAP Machine See Instructions, # 1 units, Maintenance, BiPAP 04/12 with a backup rate of 12 with a heated humidifier. 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 Start Date: 02/18/20 Status: Ordered Cane See Instructions, # 1 units, Maintenance, as directed for back pain, 09/04/18 15:08:30 EDT Start Date: 09/04/18 Status: Ordered chantix 1mg tablet 1 tablet = 1 mg, By Mouth, 2 times a day, after meals, to begin after completing starter pack, # 1 pack/packet, 3 Refills, Maintenance, 02/18/20 9:41:00 EDT, Tablet, [facility]/pharmacy #[id number], 154.9, cm, 12/30/19 11:15:00 EDT, Height, 55.3, kg, 04/19/19 8:36... Start Date: 02/18/20 Status: Ordered clonazePAM 1 mg oral tablet 1 tablet = 1 mg, By Mouth, 3 times a day, Please fax to [facility] on [address] [phone], # 90 tablet, 2 Refills, Maintenance, 09/17/18 12:46:43 EDT, Tablet Start Date: 09/17/18 Status: Ordered CPAP Equipment See Instructions, # 1 units, Refills 12, Tot. Refills 12, Maintenance, BiPAP supplies: Mask, tubing, filters, headgear, chin strap, heated water chamber Dx: ELSA G47.33 Length of need 99 months Pleasefax to [facility], [phone], 09/04/18 15:13:48 EDT, Co... Start Date: 09/04/18 Status: Ordered CPAP Equipment See Instructions, # 1 units, Refills 12, Tot. 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 Start Date: 06/30/17 Status: Ordered Eucerin Unscented topical lotion See [...] Daily, # 16 Gm, 11 Refills, Maintenance, 02/18/20 9:43:00 EDT, [facility]/pharmacy #[id number],1 sprays Nasal Daily, 154.9, cm, 12/30/19 11:15:00 EDT, Height, 55.3, kg, 04/19/19 8:36:00 EST, DryWeight Start Date: 02/18/20 Status: Ordered Flovent HFA 220 mcg/inh inhalation aerosol See Instructions, TAKE 2 PUFFS BY MOUTH TWICE A DAY RINSE MOUTH AND THROAT AFTER EACH USE, # 12 Unknown, 11 Refills, Soft Stop, 02/18/20 9:42:00 EDT, [facility]/pharmacy #[id number], 154.9, cm, 12/30/19 11:15:00 EDT, Height, 55.3, kg, 04/19/19 8:36:00 EST, Dry Weight Start Date: 02/18/20 Status: Ordered lisinopril 10 mg oral tablet 10 mg, 1, tablet, By Mouth, Daily, # 30 tablet, Refills 11, Tot. Refills 11, Maintenance, 02/18/20 9:43:00 EDT, Route to Pharmacy Electronically, [facility]/pharmacy #[id number], 154.9, cm, 12/30/19 11:15:00 EDT,Height, 55.3, kg, 04/19/19 8:36:00 EST, Dry Weight Start Date: 02/18/20 Status: Ordered lisinopril 10 mg oral tablet 10 mg, Tablet, By Mouth, 06/07/20 9:00:00 EST Start Date: 06/07/20 Stop Date: 06/07/20 Status: Completed NuLYTELY with Flavor Packs oral powder for reconstitution See Instructions, 1 glass every 15-30 minutes until finished, # 4,000 mL, 0 Refills, Maintenance, 04/12/19 11:37:44 EST, REC Powder, 1 glass every 15-30 minutes until finished, 154.9, cm, 03/19/19 10:34:58 EST, Height Start Date: 04/12/19 Status: Ordered oxyCODONE 10 mg oral tablet 1 tablet = 10 mg, By Mouth, Every 4 hours, PRN Pain , Moderate, # 12 tablet, 0 Refills, Acute 07/06/20 23:00:00 EST, 06/06/20 19:18:00 EST, Tablet, [facility]/pharmacy #[id number], Partial fill upon patient request if the prescription is for a schedule II opioid d... Start Date: 06/06/20 Stop Date: 07/06/20 Status: Ordered OxyCODONE IR Tablet 10 mg, Tablet, By Mouth, Every 4 hours, patient may refuse, Hold for: Sedation or Sleep, PRN for Pain , Moderate, Routine, 06/05/20 9:38:00 EST Start Date: 06/05/20 Stop Date: 06/07/20 Status: Discontinued ProAir HFA 90 mcg/inh inhalation aerosol with adapter 2, puffs, Inhalation, 4 times a day, PRN, # 1 each, Refills 11, Tot. Refills 11, Maintenance, 04/20/20 13:51:00 EST, Route to Pharmacy Electronically, [id number], [facility]/pharmacy #[id number], 154.9, cm, 12/30/19 11:15:00 EDT, Height,... Start Date: 04/20/20 Stop Date: 04/15/21 Status: Ordered Stiolto Respimat 60 ACT 2.5 mcg-2.5 mcg/inh inhalation aerosol 2 puffs, Inhalation, Every 24 hours, to replace tiotropium, # 4 Gm, 11 Refills, Maintenance, 02/18/20 9:43:00 EDT, Aerosol, [facility]/pharmacy #[id number], 154.9, cm, 12/30/19 11:15:00 EDT, Height, 55.3, kg, 04/19/19 8:36:00 EST, Dry Weight Start Date: 02/18/20 Status: Ordered Suboxone 8 mg-2 mg sublingual tablet, disintegrating 2 tablet, Sublingual, Daily, 0 Refills, Maintenance, Tablet Start Date: 02/20/12 Status: Ordered Topamax 50 mg oral tablet 1 tablet = 50 mg, By Mouth, 2 times a day, # 180 tablet, 3 Refills, Maintenance, 03/16/20 16:51:00 EST, Tablet, [id number], 154.9, cm, 12/30/19 11:15:00 EDT, Height, 55.3, kg, 04/19/19 8:36:00 EST, Dry Weight Start Date: 03/16/20 Stop Date: 03/11/21 Status: Ordered topiramate 25 mg oral capsule 1 capsule = 25 mg, By Mouth, Daily, take with AM topiramate 50 mg for total 75 mg QAM and 50 mg QPM, # 90 capsule, 1 Refills, Maintenance, 04/29/20 11:47:00 EST, Capsule, [id number], Partial fill upon patient request, 154.9, cm, 12/30/19 11:15... Start Date: 04/29/20 Status: Ordered Tylenol Tablet 975 mg, Tablet, By Mouth, 06/07/20 4:00:00 EST Start Date: 06/07/20 Stop Date: 06/07/20 Status: Completed Vitamin B2 100 mg oral tablet 2 tablet = 200 mg, By Mouth, 2 times a day, Please dispense brand name with lowest co-pay, # 100 tablet, 11 Refills, Maintenance, 04/20/20 13:59:00 EST, [id number], 154.9, cm, 12/30/19 11:15:00 EDT, Height, 55.3, kg, 04/19/19 8:36:00 EST, Dry... 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(Confirmed) Active Esophageal reflux (GERD)(Confirmed) 05/09/12 Active JASON (generalized anxiety disorder)(Confirmed) Active HPV: Positive in 3/; neg i n 01/15, negative in 10/16(Confirmed) Active Hypertension(Confirmed) 08/23/10 Active Lung nodules(Confirmed) Active Emphysema of lung: mixed emphysema/UIP(Confirmed) Active Major depressive disorder, [facility] [employer](Confirmed) Active Resting tremor(Confirmed) Active Tobacco abuse(Confirmed) Active Tubular adenoma of colon(Confirmed) 1 04/22/19 Active 1repeat screening colonoscopy in 2023 Results Radiology Reports * Exam Date Time Procedure Performing Provider Status 06/06/20 7:13 PM Chest 2 Views Frontal and Lat Iftikhar Lugo; Auth (Verified) Notes: (Chest 2 Views Frontal and Lat) Reason For Exam: s/p chest tube removal;Other: RESULT: Chest 2 Views Frontal and Lat Chest 2 Views Frontal and Lat Reason: Other:; s p chest tube removal; Clinical Question(s): Pneumothorax COMPARISON: [facility], most recent dated 06/06/2020, 2001 p.m. FINDINGS: LINES AND TUBES: There has been interval removal of the left-sided pigtail drainage catheter. LUNGS AND PLEURA: Again noted is coarsened interstitial markings in both lungs. No focal consolidation. Minimal left basilar atelectasis. No pleural effusion. No pneumothorax. HEART, MEDIASTINUM AND HILLARY: Heart is normal in size. Normal upper mediastinal and hilar contour. BONES AND SOFT TISSUES: No acute abnormality. IMPRESSION: Interval removal of left-sided chest tube. No pneumothorax. Persistent coarsened interstitial markings in both lungs. WSN: [id number] Ordering Physician: Jeffrey Negrete Dictated By: Lacey Kaur MD Dictated Date/Time: 06/06/20 7:23 pm Reviewed By: Lacey Kaur MD Signed By: Lacey Kaur MD Signed Date/Time: 06/06/20 7:23 pm Transcribed By: BARBARA Transcribed Date/Time: 06/06/20 7:16 pm * Exam Date Time Procedure Performing Provider Status 06/06/20 3:01 PM Chest 2 Views Frontal and Lat Carmita Vo; Auth (Verified) Notes: (Chest 2 Views Frontal and Lat) Reason For Exam: Tube Placement RESULT: Chest 2 Views Frontal and Lat Chest 2 Views Frontal and Lat Reason: Tube Placement; Clinical Question(s): Pneumothorax COMPARISON: 06/06/2020 chest radiograph. FINDINGS: LINES AND TUBES: Left basilar chest tube in place. LUNGS AND PLEURA: Coarsened interstitial lung markings, similar to prior studies. Otherwise clear lungs. Normal pulmonary vascularity. No pleural effusion. No pneumothorax. HEART, MEDIASTINUM AND HILLARY: Heart is normal in size. Normal upper mediastinal and hilar contour. BONES AND SOFT TISSUES: No acute abnormality. IMPRESSION: Left basilar chest tube is unchanged in position. No pneumothorax. WSN: [id number] Ordering Physician: Edgardo Hernandez Dictated By: Cam Cobb MD Dictated Date/Time: 06/06/20 4:02 pm Reviewed By: Cam Cobb MD Signed By: Cam Cobb MD Signed Date/Time: 06/06/20 4:02 pm Transcribed By: BARBARA Transcribed Date/Time: 06/06/20 4:01 pm * Exam Date Time Procedure Performing Provider Status 06/06/20 6:41 AM Chest 2 Views Frontal and Lat Lian Calvin; Auth (Verified) Notes: (Chest 2 Views Frontal and Lat) Reason For Exam: Postop RESULT: Chest 2 Views Frontal and Lat Chest 2 Views Frontal and Lat Reason: Postop; Clinical Question(s): Postop COMPARISON: 06/05/2020 chest radiograph. FINDINGS: LINES AND TUBES: Left basilar chest tube in place. LUNGS AND PLEURA: Coarsened interstitial lung markings, similar to prior studies. No focal consolidation. No pleural effusion. No pneumothorax. HEART, MEDIASTINUM AND HILLARY: Heart is normal in size. Normal upper mediastinal and hilar contour. BONES AND SOFT TISSUES: No acute abnormality. IMPRESSION: 1. Left basilar chest tube in place. No pneumothorax. 2. Chronically coarsened interstitial lung markings, with no focal consolidation. WSN: [id number] Ordering Physician: Elaine Rabago Dictated By: Cam Cobb MD Dictated Date/Time: 06/06/20 10:21 a Reviewed By: Cam Cobb MD Signed By: Cam Cobb MD Signed Date/Time: 06/06/20 10:21 am Transcribed By: BARBARA Transcribed Date/Time: 06/06/20 10:20 am * Exam Date Time Procedure Performing Provider Status 06/05/20 10:41 AM Chest Portable Tiera Villagomez; Auth ( Verified) Notes: (Chest Portable) Reason For Exam: post procedure-evaluate for hemo/pneumothorax, pulmonary edema orany post procedure complication;Postop RESULT: Chest Portable Chest Portable Reason: Postop; post procedure-evaluate for hemo pneumothorax, pulmonary edema or any post procedure complication; Clinical Question(s): Pneumothorax; Special Instructions: pt currently in [place] PAC[facility];Order Comment: Pt currently in [place] PAC[facility], status post left lower lobe nodule biopsy. COMPARISON: Chest x-ray dated 03/23/2009. Correlation is made with chest CT dated 04/08/2020 and images of the CT guided biopsy performed earlier today. FINDINGS: LINES AND TUBES: Left lung base pleural catheter in place. LUNGS AND PLEURA: Increased interstitial markings throughout both lung jara. There is an ill- defined opacity in theleft costophrenic angle, likely corresponding to the nodule seen on CT. No pleural effusion. No pneumothorax. HEART, MEDIASTINUM AND HILLARY: Heart is normal in size. Normal upper mediastinal and hilar contour. BONES AND SOFT TISSUES: No acute abnormality. IMPRESSION: 1. Left pleural drainage catheter in place with no evidence of pneumothorax. 2. Mild pulmonary edema. WSN: [id number] Ordering Physician: Linden Gamble Dictated By: Gaston Noguera MD Dictated Date/Time: 06/05/20 11:07 a Reviewed By: Gaston Noguera MD Signed By: Gaston Noguera MD Signed Date/Time: 06/05/20 11:07 am Transcribed By: BARBARA Transcribed Date/Time: 06/05/20 11:03 am Vital Signs Most recent to oldest [Reference Range]: 1 2 3 4 Height 154.9 cm (06/05/20 12:02 PM) 154.9 cm (06/05/20 7:20 AM) 154.9 cm (06/05/20 7:10 AM) Weight 58 kg (06/05/20 12:02 PM) 58 kg (06/05/20 7:10 AM) Oxygen Saturation [94-100 %] 97 % (06/07/20 7:00 AM) 95 % (06/07/20 2:00 AM) 97 % (06/06/20 11:00 PM) Pulse Rate [55-90 bpm] 69 bpm (06/07/20 7:00 AM) 86 bpm (06/07/20 2:00 AM) 91 bpm *H* (06/06/20 11:00 PM) Body Mass Index [18.5-24.99] 24.17 (06/05/20 12:02 PM) Blood Pressure [90-138/55-84 mm Hg] 106/82mm Hg (06/07/20 8:05 AM) 106/82mm Hg (06/07/20 7:00 AM) 93/69mm Hg (06/07/20 2:00 AM) Respiratory Rate [16-30 br/min] 14 br/min *L* (06/07/20 7:00 AM) 18 br/min (06/07/20 6:31 AM) 18 br/min (06/07/20 3:27 AM) 18 br/min (06/07/20 3:27 AM) Temperature [96.8-100.4 DegF] 98.7 DegF (06/07/20 7:00 AM) 97.6 DegF (06/07/20 2:00 AM) 97.9 DegF (06/06/20 11:00 PM) Liters per Minute 6 L/min (06/05/20 10:15 AM) Mode of Delivery (Oxygen) Room air (06/07/20 7:00 AM) Room air (06/07/20 2:00 AM) Room air (06/06/20 11:00 PM) Blood pressure sites Arm, left (06/07/20 7:00 AM) Arm, left (06/07/20 2:00 AM) Arm, left (06/06/20 11:00 PM) Temperature Route Oral (06/07/20 7:00 AM) Oral (06/07/20 2:00 AM) Oral (06/06/20 11:00 PM) Dry Weight 58 kg (06/05/20 12:02 PM) 58 kg (06/05/20 7:10 AM) Social History Social History Type Response Smoking Status Smoker, current stat us unknown; Other: pt reports smoked 1-2ppd for 50 years; entered on: 05/12/20 Sex 1about 7 cigarettes daily
--- OUTSIDE RECORDS SUMMARY | 2022-12-26 10:30 | XMS_ITS | Continuity of Care Document ---
Author Name Unknown Organization [facility] Address [address] [place] [address]- Care Team Providers Care Door Hanger Name Role Phone Divina MARINELLI, Adalberto Reeder Primary Care Physician [facility]counter [facility] Date(s): 01/24/20 - 02/23/[address] [address]- [facility] Allergies, Adverse Reactions, Alerts Substance Reaction Severity Status Zoloft O/E - Parkinsonian tremor Ac tive Other Environmental Allergy 1 Active 1ELASTIC Immunizations Given and Recorded Vaccine Date Status Refusal Reason tetanus-diphtheria toxoids (Td) 02/08/19 Given tetanus-diphtheria toxoids (Td) 1 08/23/10 Given influenza virus vaccine, inactivated 02/08/19 Give n influenza virus vaccine, inactivated 02/08/18 Give n influenza virus vaccine, inactivated 02/25/16 Give n influenza virus vaccine, inactivated 03/19/15 Give n influenza virus vaccine, inactivated 02/18/14 Give n influenza virus vaccine, inactivated 03/26/13 Give n influenza virus vaccine, inactivated 2 02/20/12 [facility] influenza virus vaccine, inactivated 04/23/08 Give n Tet/Diphth/Acel, Pertussis (oldterm) 3 02/20/12 [facility] pneumococcal 23-valent vaccine 4 02/16/11 Given Influenza Vaccine (oldterm) 5 01/27/11 Given Influenza Vaccine (oldterm) 6 06/02/09 Given Influenza Inactive (IM) (oldterm) 7 08/23/10 Given influ virus vac, H1N1, inactive(oldterm) 8 06/02/09 Given 1Admin Note: vis 03/25/08 2Admin Note: vis 12/2011 3Admin Note: vis 05/31/11 4Admin Note: vis given 5Admin Note: vis given 6Admin Note: vis 7Admin Note: vis 8Admin Note: vis Medications acetaminophen 500 mg oral tablet 2 tablet = 1,000 mg, By Mouth, 3 times a day, PRN Pain , Moderate, # 100 tablet, 1 Refills, Maintenance, 07/31/19 11:08:00 EDT, Tablet, [facility]/pharmacy #[id number], 154.9, cm, 07/04/19 9:38:00 EST, Height, 55.3, kg, 04/19/19 8:36:00 EST, Dry Weight Start Date: 07/31/19 Status: Ordered Aerochamber See Instructions, PRN, # 1 each, Refills 5, Tot. Refills 5, Maintenance, Wheezing/Shortness of Breath, as directed with MDI; Please substitute whichever spacer is covered by patient's insurance, Asthma, 08/12/19 15:29:00 EDT, Compound, 154.9, cm, 06/09... Start Date: 08/12/19 Status: Ordered BiPAP Machine See Instructions, # [...] 11 Refills, Maintenance, 02/18/20 9:43:00 EDT, Tablet, [facility]/pharmacy #0957, 1 tablet By Mouth 2 times a day,Instr:with food, 154.9, cm, 12/30/19 11:15:00 EDT, Height, 55.3, kg, 04/19/19 8:36:00... Start Date: 02/18/20 Status: Ordered Cane See Instructions, # 1 units, Maintenance, as directed for back pain, 09/04/18 15:08:30 EDT Start Date: 09/04/18 Status: Ordered CeleXA 20 mg oral tablet 20 mg, 1, tablet, By Mouth, Daily, # 90 tablet, Refills 3, Tot. Refills 3, Maintenance, 02/18/20 9:42:00 EDT, [facility] 154.9, cm, 12/30/19 11:15:00 EDT, Height, 55.3, kg, 04/19/19 8:36:00 EST, Dry Weight Start Date: 02/18/20 Status: Ordered cetirizine 10 mg oral tablet 1 tablet = 10 mg, By Mouth, Daily, PRN Other, PRN allergies, # 30 tablet, 11 Refills, Maintenance, 02/18/20 9:43:00 EDT, Tablet, [facility]/pharmacy #0957, 154.9, cm, 12/30/19 11:15:00 EDT, Height, 55.3, kg, 04/19/19 8:36:00 EST, Dry Weight Start Date: 02/18/20 Status: Ordered chantix 1mg tablet 1 tablet = 1 mg, By Mouth, 2 times a day, after meals, to begin after completing starter pack, # 1 pack/packet, 3 Refills, Maintenance, 02/18/20 9:41:00 EDT, Tablet, [facility]/pharmacy #0957, 154.9, cm, 12/30/19 11:15:00 EDT, Height, 55.3, kg, 04/19/19 8:36... Start Date: 02/18/20 Status: Ordered clonazePAM 1 mg oral tablet TAKE 1 TABLET BY MOUTH 3 TIMES A DAY Start Date: 10/20/17 Status: Ordered clonazePAM 1 mg oral tablet 1 tablet = 1 mg, By Mouth, 3 times a day, Please fax to [facility] [address] [phone], # 90 tablet, 2 Refills, Maintenance, 09/17/18 12:46:43 EDT, Tablet Start Date: 09/17/18 Status: Ordered CPAP Equipment See Instructions, # 1 units, Refills 12, Tot. Refills 12, Maintenance, BiPAP supplies: Mask, tubing, filters, headgear, chin strap, heated water chamber Dx: ELSA G47.33 Length of need 99 months Pleasefax to [facility], [phone], 09/04/18 15:13:48 EDT, Co... Start Date: 09/04/18 Status: Ordered CPAP Equipment See Instructions, # 1 units, Refills 12, Tot. Refills 12, Maintenance, BIPAP supplies: Mask, tubing, filters, headgear, chin strap, water chamber 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) Lengthof need 99 months Please fax to [facility], [phone],... Start Date: 06/30/17 Status: Ordered diphenhydrAMINE 25 mg oral tablet 1 tablet = 25 mg, By Mouth, 3 times a day, PRN for allergy symptoms, # 30 tablet, 6 Refills, Maintenance, 02/08/19 9:44:22 EDT, Tablet Start Date: 02/08/19 Status: Ordered Eucerin Unscented topical lotion See [...] Gm, 11 Refills, Maintenance, 02/18/20 9:43:00 EDT, [facility],1 sprays Nasal Daily, 154.9, cm, 12/30/19 11:15:00 EDT, Height, 55.3, kg, 04/19/19 8:36:00 EST, DryWeight Start Date: 02/18/20 Status: Ordered Flovent HFA 220 mcg/inh inhalation aerosol See Instructions, TAKE 2 PUFFS BY MOUTH TWICE A DAY RINSE MOUTH AND THROAT AFTER EACH USE, # 12 Unknown, 11 Refills, Soft Stop, 02/18/20 9:42:00 EDT, [facility]/pharmacy #0957, 154.9, cm, 12/30/19 11:15:00 EDT, Height, 55.3, kg, 04/19/19 8:36:00 EST, Dry Weight Start Date: 02/18/20 Status: Ordered lisinopril 10 mg oral tablet 10 mg, 1, tablet, By Mouth, Daily, # 30 tablet, Refills 11, Tot. Refills 11, Maintenance, 02/18/20 9:43:00 EDT, Route to Pharmacy Electronically, [facility]/pharmacy #0957, 154.9, cm, 12/30/19 11:15:00 EDT,Height, 55.3, kg, 04/19/19 8:36:00 EST, Dry Weight Start Date: 02/18/20 Status: Ordered NuLYTELY with Flavor Packs oral powder for reconstitution See Instructions, 1 glass every 15-30 minutes until finished, # 4,000 mL, 0 Refills, Maintenance, 04/12/19 11:37:44 EST, REC Powder, 1 glass every 15-30 minutes until finished, 154.9, cm, 03/19/19 10:34:58 EST, Height Start Date: 04/12/19 Status: Ordered omeprazole 20 mg oral enteric coated capsule See Instructions, take 2 daily for 60 days, then resume one daily, # 60 capsule, 11 Refills, Maintenance, 02/18/20 9:43:00 EDT, EC Capsule, [facility]/pharmacy #0957, 154.9, cm, 12/30/19 11:15:00 EDT, Height, 55.3, kg, 04/19/19 8:36:00 EST, Dry Weight Start Date: 02/18/20 Status: Ordered ProAir HFA 90 mcg/inh inhalation aerosol with adapter 2, puffs, Inhalation, 4 times a day, PRN, # 1 each, Refills 11, Tot. Refills 11, Maintenance, 02/18/20 9:43:00 EDT, Route to Pharmacy Electronically, [id number], [facility]/pharmacy #0957, 154.9, cm, 12/30/19 11:15:00 EDT, Height, 5... Start Date: 02/18/20 Stop Date: 02/12/21 Status: Ordered Stiolto Respimat 60 ACT 2.5 mcg-2.5 mcg/inh inhalation aerosol 2 puffs, Inhalation, Every 24 hours, to replace tiotropium, # 4 Gm, 11 Refills, Maintenance, 02/18/20 9:43:00 EDT, Aerosol, [facility], 154.9, cm, 12/30/19 11:15:00 EDT, Height, 55.3, kg, 04/19/19 8:36:00 EST, Dry Weight Start Date: 02/18/20 Status: Ordered Suboxone 8 mg-2 mg sublingual tablet, disintegrating 2 tablet, Sublingual, Daily, 0 Refills, Maintenance, Tablet Start Date: 02/20/12 Status: Ordered terbinafine 250 mg oral tablet 1 tablet = 250 mg, By Mouth, Daily, # 84 tablet, 0 Refills, Acute 03/03/20 15:21:00 EDT, 12/02/19 15:20:00 EDT, Tablet, [facility], 154.9, cm, 08/22/19 15:10:00 EDT, Height, 55.3, kg, 04/19/19 8:36:00 EST, Dry Weight Start Date: 12/02/19 Stop Date: 03/03/20 Status: Ordered Topamax 50 mg oral tablet 1 tablet = 50 mg, By Mouth, 2 times a day, # 180 tablet, 1 Refills, Maintenance, 09/18/19 8:59:00 EDT, Tablet, [facility], 154.9, cm, 08/22/19 15:10:00 EDT, Height, 55.3, kg, 04/19/19 8:36:00EST, Dry Weight Start Date: 09/18/19 Status: Ordered Vitamin B2 100 mg oral tablet 2 tablet = 200 mg, By Mouth, 2 times a day, # 100 tablet, 11 Refills, Maintenance, 02/18/20 9:43:00EDT, [facility], 154.9, cm, 12/30/19 11:15:00 EDT, Height, 55.3, kg, 04/19/19 8:36:00 EST, Dry Weight Start Date: 02/18/20 Status: Ordered Problem List Condition Effective Dates Status Health Status Inform ant Age at leaving school - ged(Confirmed) Active ASCUS(Confirmed) Active 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 Sleep Report(Confirmed) 05/25/11 Active Hep C: Cleared without treatment(Confirmed) Active Clubbing(Confirmed) [facility] Active Esophageal reflux (GERD)(Confirmed) 05/09/12 Active JASON (generalized anxiety disorder)(Confirmed) Active HPV: Positive in 07/15; neg i n 01/15, negative in 10/16(Confirmed) Active Hypertension(Confirmed) 08/23/10 Active Emphysema of lung: mixed emphysema/UIP(Confirmed) Active Major depressive disorder, [facility](Confirmed) Active Resting tremor(Confirmed) Active Tobacco abuse(Confirmed) Active Tubular adenoma of colon(Confirmed) 1 04/22/19 Active 1repeat screening colonoscopy in 2023 Social History Social History Type Response Smoking Status 10 or more cigarette s (1/2 pack or more)/day in last 30 days; Other: pt states vapes, states it is approx to 1ppd; entered on: 05/21/18 Sex 1about 7 cigarettes daily
--- OUTSIDE RECORDS SUMMARY | 2022-12-26 10:30 | XMS_ITS | Continuity of Care Document ---
Author Name Unknown Organization [facility] Address [address] [place] [address]- Care Team Providers Care Pharmacist In Charge Owner Name Role Phone Divina MARINELLI, Adalberto Reeder Primary Care Physician Encounter [facility] Date(s): 12/01/21 - 12/31/[address] [address]- Allergies, Adverse Reactions, Alerts Substance Reaction Severity Status Zoloft O/E - Parkinsonian tremor Ac tive Rubber Active Other Environmental Allergy 1 Active 1ELASTIC Immunizations Given and Recorded Vaccine Date Status Refusal Reason SARS-CoV-2 mRNA (uhqjjhh-nyvj-lwifl) vax 12/14/21 Given SARS-CoV-2 mRNA (bvyksaf-nvew-fywvg) vax 09/14/21 Given SARS-CoV-2 (COVID-19) mRNA BNT-162b2 vac 03/23/21 Recorded [...] cm, 06/09... Start Date: 08/12/19 Status: Ordered alendronate 70 mg oral tablet 1 tablet = 70 mg, By Mouth, Every week, # 12 tablet, 3 Refills, Maintenance, 09/14/21 10:11:00 EDT,Tablet, [facility]/pharmacy #0983, Partial fill upon patient request if the prescription is for a scheduleII opioid drug., 154.8, cm, 09/14/21 9:50:00 EDT, H... Start Date: 09/14/21 Status: Ordered BiPAP Machine See Instructions, # 1 units, Maintenance, BiPAP 04/12 with a backup rate of 12 with a heated humidifier. 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), 09/04/18 15:13:48 EDT Start Date: 09/04/18 Status: Ordered calcium-vitamin D 600 mg-400 intl units oral tablet 1 tablet, By Mouth, 2 times a day with meals, # 180 tablet, 1 Refills, [facility], 90, TAKE 1 TABLET BY MOUTH TWICE A DAY WITH FOOD, 154.8, cm, 09/14/21 9:50:00 EDT, Height, 56, kg, 12/09/20 9:16:00 EDT, Dry Weight Start Date: 11/25/21 Status: Ordered Cane See Instructions, # 1 units, Maintenance, as directed for back pain, 09/04/18 15:08:30 EDT Start Date: 09/04/18 Status: Ordered chantix 1mg tablet See Instructions, TAKE 1 TABLET BY MOUTH TWICE A DAY AFTER MEALS, # 56 tablet, 3 Refills, PhysicianStop 04/15/22 8:28:00 EST, 12/14/21 8:27:00 EDT, [facility]/pharmacy #0957, 154.8, cm, 09/14/21 9:50:00 EDT, Height, 56, kg, 12/09/20 9:16:00 EDT, Dry Weight Start Date: 12/14/21 Stop Date: 04/15/22 Status: Ordered clonazePAM 0.25 mg oral tablet, disintegrating See Instructions, 1 tablet By Mouth 2 times a day, may take one more at bedtime as needed. Mass PatReviewed. Please fill on/after 12/06/21, # 62 tablet, 1 Refills, Maintenance, 11/26/21 15:32:00 EDT, [facility]/pharmacy #0957, Partial fill upon patient reque... Start Date: 11/26/21 Status: Ordered CPAP Equipment See Instructions, # 1 units, Refills 12, Tot. Refills 12, Maintenance, BIPAP supplies: Mask, tubing, filters, headgear, chin strap, water chamber 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) Lengthof need 99 months Please fax to [facility], [phone],... Start Date: 06/30/17 Status: Ordered CPAP Equipment See Instructions, # 1 each, Refills 12, Tot. Refills 12, Maintenance, BiPAP supplies: Mask, tubing,filters, headgear, chin strap, heated water chamber Dx: ELSA G47.33 Length of need 99 months Please fax to [facility] fax # [phone], 07/02/20 14:50:0... Start Date: 07/02/20 Status: Ordered cyanocobalamin 500 mcg oral tablet 1 tablet = 500 mcg, By Mouth, Daily, on empty stomach, # 90 tablet, 3 Refills, Maintenance, 03/26/21 20:06:00 EST, Tablet, [facility]/pharmacy #0957, Partial fill upon patient request if [...] dry skin Start Date: 11/15/13 Status: Ordered Flovent HFA 220 mcg/inh inhalation aerosol 2 puffs, Inhalation, 2 times a day, AND THROAT AFTER EACH USE., # 12 each, 11 Refills, [id number], 154.8, cm, 09/14/21 9:50:00 EDT, Height, 56, kg, 12/09/20 9:16:00 EDT, Dry Weight Start Date: 11/17/21 Status: Ordered fluticasone 50 mcg/inh nasal spray See Instructions, USE 1 SPRAY IN EACH NOSTRIL DAILY, # 48 mL, 11 Refills, [facility], 90, USE 1 SPRAY IN EACH NOSTRIL DAILY, 154.8, cm, 09/14/21 9:50:00 EDT, Height, 56, kg, 12/09/20 9:16:00 EDT, Dry Weight Start Date: 11/15/21 Status: Ordered Inderal LA 80 mg oral capsule, extended release 80 mg, 1, capsule, By Mouth, Daily, # 30 capsule, Refills 3, Tot. Refills 3, Maintenance, 06/23/20 10:00:00 EST, Route to Pharmacy Electronically, [facility]/pharmacy #0957, To replace Topamax. Partial fillupon patient request if the prescription is for a... Start Date: 06/23/20 Status: Ordered lisinopril 10 mg oral tablet 1, tablet, By Mouth, Daily, # 90 tablet, Refills 3, Route to Pharmacy Electronically, [facility], 154.8, cm, 09/14/21 9:50:00 EDT, Height, 56, kg, 12/09/20 9:16:00 EDT, Dry Weight Start Date: 12/07/21 Status: Ordered melatonin 3 mg oral tablet 1 tablet = 3 mg, By Mouth, Daily at bedtime, PRN Insomnia, # 60 tablet, 11 Refills, Maintenance, 03/29/21 21:06:00 EST, [facility]/pharmacy #0957, Partial fill upon patient request if the prescription is for a schedule II opioid drug., 154.8, cm, 03/23/21 11... Start Date: 03/29/21 Status: Ordered nicotine 2 mg oral transmucosal lozenge 1 lozenge = 2 mg, By Mouth, Every 2 hours, # 72 each, 11 Refills, Maintenance, 10/13/20 8:35:00 EDT, [facility]/pharmacy #0957, Partial fill upon patient request if [...] each, Refills 3, Tot. Refills 3, Maintenance, [place] Ensure 1 can TID. Dx: C34.90, R63.4, 03/29/21 15:29:00 EST, Supply Start Date: 03/29/21 Status: Ordered omeprazole 20 mg oral enteric coated capsule 1 capsule = 20 mg, By Mouth, Daily, # 90 capsule, 3 Refills, Maintenance, 07/08/21 15:23:00 EST, ECCapsule, [facility]/pharmacy #0957, Partial fill upon patient request if the prescription is for a schedule II opioid drug., 154.8, cm, 06/29/21 9:00:00 EST,... Start Date: 07/08/21 Status: Ordered Stiolto Respimat 60 ACT 2.5 mcg-2.5 mcg/inh inhalation aerosol 2 puffs, Inhalation, Every 24 hours, TO REPLACE TIOTROPIUM., # 4 mL, 11 Refills, [facility], 154.8, cm, 09/14/21 9:50:00 EDT, Height, 56, kg, 12/09/20 9:16:00 EDT, Dry Weight Start Date: 11/17/21 Status: Ordered Ventolin HFA 108 mcg/inh inhalation aerosol with adapter 2 puffs, Inhalation, 4 times a day, PRN NEEDED FOR WHEEZING, # 18 each, 5 Refills, [facility], 154.8, cm, 09/14/21 9:50:00 EDT, Height, 56, kg, 12/09/20 9:16:00 EDT, Dry Weight Start Date: 11/28/21 Status: Ordered Problem List Condition Effective Dates Status Health Status Inform ant Age at leaving school - ged(Confirmed) Active ASCUS(Confirmed) Active 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 Sleep Report(Confirmed) 05/25/11 Active Hep C: Cleared without treatment(Confirmed) Active Clubbing(Confirmed) Active Drug abuse: Suboxone via [facility](Confirmed) Active Esophageal reflux (GERD)(Confirmed) 05/09/12 Active JASON (generalized anxiety disorder)(Confirmed) Active HPV: Positive in 07/15; neg i n 01/15, negative in 10/16(Confirmed) Active Hypertension(Confirmed) 08/23/10 Active Lung cancer(Confirmed) Active Lung nodules(Confirmed) Active Opioid use disorder(Confirmed) Active Osteoporosis(Confirmed) Active Pelvic mass(Confirmed) Active Emphysema of lung: [...] on: 05/12/20 Sex 1about 7 cigarettes daily Care Team Personnel Name: Divina MARINELLI, Adalberto Reeder Address: [address] [place] [address]-
--- OUTSIDE RECORDS SUMMARY | 2022-12-26 10:30 | XMS_ITS | Continuity of Care Document ---
Author Name Unknown Organization [facility] Address [address] [place] [address]- Care Team Providers Care Floral Merchandiser Name Role Phone Adalberto Murcia MD Primary Care Physician [facility]): 05/27/21 - 06/26/21 [facility] [address] [place] [address]- Allergies, Adverse Reactions, Alerts Substance Reaction Severity [...] Asthma, 08/12/19 15:29:00 EDT, Compound, 154.9, cm, 2... Start Date: 08/12/19 Status: Ordered albuterol CFC free 90 mcg/inh inhalation aerosol 1, puffs, Inhalation, 4 times a day, PRN, please substitute whichever albuterol product is covered by patient's insurance, # 18 Gm, Refills 11, Tot. Refills 11, Maintenance, 08/03/20 17:04:00 EDT, Aerosol, Route to Pharmacy Electronically, [id number]... Start Date: 08/03/20 Status: Ordered BiPAP Machine See Instructions, # 1 units, Maintenance, BiPAP 04/12 with a backup rate of 12 with a heated humidifier. Dx: Cheko león respiration, severe (786.04), 09/04/18 15:13:48 EDT Start Date: 09/04/18 Status: Ordered calcium-vitamin D 600 mg-400 intl units oral tablet 1 tablet, By Mouth, 2 times a day, with food, # 60 tablet, 11 Refills, Maintenance, 11/05/20 17:11:00 EDT, Tablet, [facility], 1 tablet By Mouth 2 times [...] 56 tablet, 3 Refills, Acute, [facility], 154.9, cm, 06/11/20 9:48:00 EST, Height, 58, kg, 06/05/20 12:02:00 EST, Dry Weight Start Date: 08/03/20 Status: Ordered clonazePAM 0.5 mg oral tablet See Instructions, 1 tablet By Mouth 3 times a day. Mass Pat Reviewed. Please fill on/after 07/07/21, # 90 tablet, 0 Refills, Maintenance, 06/25/21 9:11:00 EST, [facility], Partial fill upon patient request if the prescription is for a schedule I... Start Date: 06/25/21 Status: Ordered CPAP Equipment See Instructions, # 1 units, Refills 12, Tot. Refills 12, Maintenance, BIPAP supplies: Mask, tubing, filters, headgear, chin strap, water chamber Dx: Cheko león respiration, severe (786.04) Lengthof need 99 months Please fax to [facility], [phone],... Start Date: 06/30/17 Status: Ordered CPAP Equipment See Instructions, # 1 each, Refills 12, Tot. Refills 12, Maintenance, BiPAP supplies: Mask, tubing,filters, headgear, chin strap, heated water chamber Dx: ELSA G47.33 Length of need 99 months Please fax to [facility] fax # [phone], 07/02/20 14:50:0... Start Date: 07/02/20 Status: Ordered cyanocobalamin 500 mcg oral tablet 1 tablet = 500 mcg, By Mouth, Daily, on empty stomach, # 90 tablet, 3 Refills, Maintenance, 03/26/21 20:06:00 EST, Tablet, [facility]/pharmacy #0957, Partial fill upon patient request if the prescription isfor a schedule II opioid drug., 154.8, cm, 03/23/21... Start Date: 03/26/21 Status: Ordered Eucerin Unscented topical lotion See Instructions, apply to skin daily, dispense 1 jar, # 1 each, 11 Refills, Maintenance, 09/25/19 16:37:00 EDT, [facility]/pharmacy #0957, apply to skin daily, dispense 1 [...] Gm, 11 Refills, Maintenance, 11/05/20 17:11:00 EDT, [facility]/pharmacy #0957, 1 sprays Nasal Daily, 154.9, cm, 10/13/20 7:56:00 EDT, Height, 58, kg, 06/05/20 12:02:00 EST, Dry Weight Start Date: 11/05/20 Status: Ordered Flovent HFA 220 mcg/inh inhalation aerosol See Instructions, TAKE 2 PUFFS BY MOUTH TWICE A DAY RINSE MOUTH AND THROAT AFTER EACH USE, # 12 Unknown, 11 Refills, Soft Stop, 11/05/20 17:11:00 EDT, [facility]/pharmacy #0957, 154.9, cm, 10/13/20 7:56:00 EDT, Height, 58, kg, 06/05/20 12:02:00 EST, Dry Weight Start Date: 11/05/20 Status: Ordered Inderal LA 80 mg oral capsule, extended release 80 mg, 1, capsule, By Mouth, Daily, # 30 capsule, Refills 3, Tot. Refills 3, Maintenance, 06/23/20 10:00:00 EST, Route to Pharmacy Electronically, [facility]/pharmacy #0957, To replace Topamax. Partial fillupon patient request if the prescription is for a... Start Date: 06/23/20 Status: Ordered lisinopril 10 mg oral tablet 10 mg, 1, tablet, By Mouth, Daily, # 90 tablet, Refills 3, Tot. Refills 3, Maintenance, 09/28/20 13:15:00 EDT, Route to Pharmacy Electronically, [facility]/pharmacy #0957, 154.9, cm, 09/22/20 10:26:00 EDT, Height, 58, kg, 06/05/20 12:02:00 EST, Dry Weight Start Date: 09/28/20 Stop Date: 09/23/21 Status: Ordered melatonin 3 mg oral tablet 1 tablet = 3 mg, By Mouth, Daily at bedtime, PRN Insomnia, # 60 tablet, 11 Refills, Maintenance, 03/29/21 21:06:00 EST, [facility]/pharmacy #0957, Partial fill upon patient request if the prescription is for a schedule II opioid drug., 154.8, cm, 03/23/21 11... Start Date: 03/29/21 Status: Ordered nicotine 2 mg oral transmucosal lozenge 1 lozenge = 2 mg, By Mouth, Every 2 hours, # 72 each, 11 Refills, Maintenance, 10/13/20 8:35:00 EDT, [facility]/pharmacy #0957, Partial fill upon patient request if [...] each, Refills 3, Tot. Refills 3, Maintenance, [place] Ensure 1 can TID. Dx: C34.90, R63.4, 03/29/21 15:29:00 EST, Supply Start Date: 03/29/21 Status: Ordered Stiolto Respimat 60 ACT 2.5 mcg-2.5 mcg/inh inhalation aerosol 2 puffs, Inhalation, Every 24 hours, to replace tiotropium, # 4 Gm, 11 Refills, Maintenance, 11/05/20 17:11:00 EDT, Aerosol, [facility]/pharmacy #0957, 154.9, cm, 10/13/20 7:56:00 EDT, Height, 58, kg, 06/05/20 12:02:00 EST, Dry Weight Start Date: 11/05/20 Status: Ordered Ventolin HFA 108 mcg/inh inhalation aerosol with adapter 2 puffs, Inhalation, 4 times a day, PRN for wheezing, # 18 Gm, 11 Refills, Maintenance, 11/12/20 9:46:00 EDT, Aerosol, [facility]/pharmacy #0957, Partial fill upon patient request if the prescription is fora schedule II opioid drug. Please substitute brand... Start Date: 11/12/20 Status: Ordered Problem List Condition Effective Dates Status Health Status Inform ant Age at leaving school - ged(Confirmed) Active ASCUS(Confirmed) Active Cheko-León respiration: s ee 05/25/11 Sleep Report(Confirmed) 05/25/11 Active Hep C: Cleared without treatment(Confirmed) Active Clubbing(Confirmed) Active Drug abuse: Suboxone via [facility](Confirmed) Active Esophageal reflux (GERD)(Confirmed) 05/09/12 Active [...]
--- OUTSIDE RECORDS SUMMARY | 2022-12-26 10:30 | XMS_ITS | Continuity of Care Document ---
Author Name Unknown Organization [facility] ter Address [address] [place] [address]- Care Team Providers Care License Clerk Name Role Phone Divina MARINELLI, Adalberto Reeder Primary Care Physician Encounter [facility] Date(s): 05/19/21 - 07/15/[address] [id number] Attending Physician: Marie Muir MD Admitting Physician: Marie Muir MD Allergies, Adverse Reactions, Alerts Substance Reaction [...] 17:04:00 EDT, Aerosol, Route to Pharmacy Electronically, [id number]... Start Date: 08/03/20 Status: Ordered BiPAP Machine [...] 56 tablet, 3 Refills, Acute, [facility], 154.9, cm, 06/11/20 9:48:00 EST, Height, 58, [...] Lengthof need 99 months Please fax to [facility], [phone],... Start Date: 06/30/17 Status: Ordered CPAP Equipment See Instructions, # 1 each, Refills 12, Tot. Refills 12, Maintenance, BiPAP supplies: Mask, tubing,filters, headgear, chin strap, heated water chamber Dx: ELSA G47.33 Length of need 99 months Please fax to [facility] fax # [phone], 07/02/20 14:50:0... Start Date: 07/02/20 Status: Ordered [...] each, Refills 3, Tot. Refills 3, Maintenance, [place] Ensure 1 can TID. Dx: C34.90, R63.4, 03/29/21 15:29:00 EST, Supply Start Date: 03/29/21 Status: Ordered omeprazole 20 mg oral enteric coated capsule 1 capsule = 20 mg, By Mouth, Daily, # 90 capsule, 3 Refills, Maintenance, 07/08/21 15:23:00 EST, ECCapsule, [facility]/pharmacy #0957, Partial fill upon patient [...] Active Clubbing(Confirmed) Active Drug abuse: Suboxone via [facility](Confirmed) Active Esophageal reflux (GERD)(Confirmed) 05/09/12 Active [...]
--- OUTSIDE RECORDS SUMMARY | 2022-12-26 10:30 | XMS_ITS | Continuity of Care Document ---
Author Name Unknown Organization [facility] Address [address] [address]- Care Team Providers Care Multi Site Leasing Consultant Name Role Phone Divina MARINELLI, Adalberto Reeder Primary Care Physician Encounter [facility] Date(s): 06/03/21 - 08/04/21 [facility] [address] [place] [id number] Attending Physician: Harlan Apple MD Allergies, Adverse Reactions, Alerts Substance Reaction [...] Asthma, 08/12/19 15:29:00 EDT, Compound, 154.9, cm, 02/2... Start Date: 08/12/19 Status: Ordered albuterol CFC free 90 mcg/inh inhalation aerosol 1, puffs, Inhalation, 4 times a day, PRN, please substitute whichever albuterol product is covered by patient's insurance, # 18 Gm, Refills 11, Tot. Refills 11, Maintenance, 08/03/20 17:04:00 EDT, Aerosol, Route to Pharmacy Electronically, [id number]... Start Date: 08/03/20 Status: Ordered BiPAP Machine [...] 11 Refills, Maintenance, 11/05/20 17:11:00 EDT, Tablet, [facility]/pharmacy #0957, 1 tablet By Mouth 2 times [...] 56 tablet, 3 Refills, Acute, [facility], 154.9, cm, 06/11/20 9:48:00 EST, Height, 58, kg, 06/05/20 12:02:00 EST, Dry Weight Start Date: 08/03/20 Status: Ordered clonazePAM 0.5 mg oral tablet See Instructions, 1 tablet By Mouth 2 times a day. Mass Pat Reviewed. Please fill on/after 08/06/21, # 50 tablet, 0 Refills, Maintenance, 07/28/21 10:24:00 EDT, [facility], Partial fill upon patient request if the prescription is for a schedule... Start Date: 07/28/21 Status: Ordered CPAP Equipment See Instructions, # 1 units, Refills 12, Tot. 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 Start Date: 06/30/17 Status: Ordered CPAP Equipment See Instructions, # 1 each, Refills 12, Tot. Refills 12, Maintenance, BiPAP supplies: Mask, tubing,filters, headgear, chin strap, heated water chamber Dx: ELSA G47.33 Length of need 99 months Please fax to [facility] fax # [phone], 07/02/20 14:50:0... Start Date: 07/02/20 Status: Ordered cyanocobalamin 500 mcg oral tablet 1 tablet = 500 mcg, By Mouth, Daily, on empty stomach, # 90 tablet, 3 Refills, Maintenance, 03/26/21 20:06:00 EST, Tablet, [facility]/pharmacy #0957, Partial fill upon patient request if [...] Gm, 11 Refills, Maintenance, 11/05/20 17:11:00 EDT, [facility]/pharmacy #0957, 1 sprays Nasal Daily, 154.9, cm, [...] 06/23/20 10:00:00 EST, Route to Pharmacy Electronically, [facility]/pharmacy #0957, To replace Topamax. Partial fillupon patient request if the prescription is for a... Start Date: 06/23/20 Status: Ordered lisinopril 10 mg oral tablet 10 mg, 1, tablet, By Mouth, Daily, # 90 tablet, Refills 3, Tot. Refills 3, Maintenance, 09/28/20 13:15:00 EDT, Route to Pharmacy Electronically, [facility]/pharmacy #0957, 154.9, cm, 09/22/20 10:26:00 EDT, Height, 58, kg, 06/05/20 12:02:00 EST, Dry Weight Start Date: 09/28/20 Stop Date: 09/23/21 Status: Ordered melatonin 3 mg oral tablet 1 tablet = 3 mg, By Mouth, Daily at bedtime, PRN Insomnia, # 60 tablet, 11 Refills, Maintenance, 03/29/21 21:06:00 EST, [facility]/pharmacy #0957, Partial fill upon patient request if the prescription is for a schedule II opioid drug., 154.8, cm, 03/23/21 11... Start Date: 03/29/21 Status: Ordered nicotine 2 mg oral transmucosal lozenge 1 lozenge = 2 mg, By Mouth, Every 2 hours, # 72 each, 11 Refills, Maintenance, 10/13/20 8:35:00 EDT, [facility]/pharmacy #0957, Partial fill upon patient request if [...] each, Refills 3, Tot. Refills 3, Maintenance, [place] Ensure 1 can TID. Dx: C34.90, R63.4, 03/29/21 15:29:00 EST, Supply Start Date: 03/29/21 Status: Ordered omeprazole 20 mg oral enteric coated capsule 1 capsule = 20 mg, By Mouth, Daily, # 90 capsule, 3 Refills, Maintenance, 07/08/21 15:23:00 EST, ECCapsule, [facility]/pharmacy #0957, Partial fill upon patient request if [...]
--- OUTSIDE RECORDS SUMMARY | 2022-12-26 10:30 | XMS_ITS | Continuity of Care Document ---
Author Name Unknown Organization [facility] Address [address] [place] [address]- Care Team Providers Care Intake Specialist Name Role Phone Adalberto Murcia MD Primary Care Physician Encounter [facility] Date(s): 05/13/21 - 09/19/21 [facility] [address] [place] [id number] Attending Physician: Marie Muir MD Admitting Physician: Marie Muir MD Referring Physician: Adalberto Murcia MD Allergies, Adverse Reactions, Alerts Substance Reaction Severity Status Zoloft 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 Start Date: 08/03/20 Status: Ordered alendronate 70 mg oral tablet 1 tablet = 70 mg, By Mouth, Every week, # 12 tablet, 3 Refills, Maintenance, 09/14/21 10:11:00 EDT,Tablet, [facility]/pharmacy #0957, Partial fill upon patient request if the prescription is for a scheduleII opioid drug., 154.8, cm, 09/14/21 9:50:00 EDT, H... Start Date: 09/14/21 Status: Ordered BiPAP Machine See Instructions, # 1 units, Maintenance, BiPAP / with a backup rate of 12 with a heated humidifier. 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 Mass Pat Reviewed. Please fill on/after 09/06/21, # 50 tablet, 0 Refills, Maintenance, 09/06/21 10:17:00 EDT, [facility]/pharmacy #0957, Partial fill upon patient request if the prescription is for a schedule... Start Date: 09/06/21 Status: Ordered CPAP Equipment See Instructions, # 1 units, Refills 12, Tot. 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 Start Date: 06/30/17 Status: Ordered CPAP Equipment See Instructions, # 1 each, Refills 12, Tot. Refills 12, Maintenance, BiPAP supplies: Mask, tubing,filters, headgear, chin strap, heated water chamber Dx: ELSA G47.33 Length of need 99 months Please fax to [facility] fax # [phone], 07/02/20 14:50:0... Start Date: 07/02/20 Status: Ordered [...] 11 Refills, Soft Stop, 11/05/20 17:11:00 EDT, [facility]/pharmacy #0957, 154.9, cm, 10/13/20 7:56:00 EDT, Height, 58, kg, 06/05/20 12:02:00 EST, Dry Weight Start Date: 11/05/20 Status: Ordered Inderal LA 80 mg oral capsule, extended release 80 mg, 1, capsule, By Mouth, Daily, # 30 capsule, Refills 3, Tot. Refills 3, Maintenance, 06/23/20 10:00:00 EST, Route to Pharmacy Electronically, [facility]/pharmacy #0957, To replace Topamax. Partial fillupon patient request if the prescription is for a... Start Date: 06/23/20 Status: Ordered lisinopril 10 mg oral tablet 10 mg, 1, tablet, By Mouth, Daily, # 90 tablet, Refills 3, Tot. Refills 3, Maintenance, 09/28/20 13:15:00 EDT, Route to Pharmacy Electronically, [facility]/pharmacy #0957, 154.9, cm, 09/22/20 10:26:00 EDT, Height, 58, kg, 06/05/20 12:02:00 EST, Dry Weight Start Date: 09/28/20 Stop Date: 09/23/21 Status: Ordered melatonin 3 mg oral tablet 1 tablet = 3 mg, By Mouth, Daily at bedtime, PRN Insomnia, # 60 tablet, 11 Refills, Maintenance, 03/29/21 21:06:00 EST, [facility], Partial fill upon patient request if the prescription is for a schedule II opioid drug., 154.8, cm, 03/23/21 11... Start Date: 03/29/21 Status: Ordered nicotine 2 mg oral transmucosal lozenge 1 lozenge = 2 mg, By Mouth, Every 2 hours, # 72 each, 11 Refills, Maintenance, 10/13/20 8:35:00 EDT, [facility]/pharmacy #0957, Partial fill upon patient request [...] each, Refills 3, Tot. Refills 3, Maintenance, [place] Ensure 1 can TID. Dx: C34.90, R63.4, 03/29/21 15:29:00 EST, Supply Start Date: 03/29/21 Status: Ordered omeprazole 20 mg oral enteric coated capsule 1 capsule = 20 mg, By Mouth, Daily, # 90 capsule, 3 Refills, Maintenance, 07/08/21 15:23:00 EST, ECCapsule, [facility]/pharmacy #0957, Partial fill upon patient request [...] Clubbing(Confirmed) [facility]: [facility] Active Esophageal reflux (GERD)(Confirmed) 05/09/12 Active [...]
--- OUTSIDE RECORDS SUMMARY | 2022-12-26 10:30 | XMS_ITS | Continuity of Care Document ---
Author Name Unknown Organization [facility] Adult Address [address] [place] [address]- Care Team Providers Care Can Machine Operator Name Role Phone Mavis Allen Primary Care Physician Encounter [facility] Date(s): 06/24/22 - 10/22/22 [facility] Adult [address] [place] [address]- Attending Physician: Mavis Allen Allergies, Adverse Reactions, Alerts Substance Reaction Severity Status Zoloft O/E - Parkinsonian tremor Ac tive Rubber Active Other Environmental Allergy 1 Active 1ELASTIC Immunizations Given and Recorded Vaccine Date Status Refusal Reason [id number] 12y+ bivalent booster vax 05/11/22 Recorded influenza virus vaccine, inactivated 02/16/22 Jatinder rded influenza virus vaccine, inactivated 02/18/21 Jatinder rded [...] influenza virus vaccine, inactivated 04/23/08 Give n SARS-CoV-2 mRNA (hycjwuf-bosg-lrxrb) vax 12/14/21 Given SARS-CoV-2 mRNA (wxmjcsr-kqlx-wganc) vax 09/14/21 Given SARS-CoV-2 (COVID-19) mRNA BNT-162b2 vac 03/23/21 Recorded SARS-CoV-2 (COVID-19) mRNA BNT-162b2 vac 08/04/20 Recorded SARS-CoV-2 (COVID-19) mRNA BNT-162b2 vac 07/14/20 Recorded zoster vaccine, inactivated 06/30/20 Recorded zoster vaccine, [...] Asthma, 08/12/19 15:29:00 EDT, Compound, 154.9, cm, /2... Start Date: 08/12/19 Status: Ordered alendronate 70 mg oral tablet 1 tablet, By Mouth, Every week, # 12 tablet, 3 Refills, Maintenance, 05/26/22 19:48:00 EST, [facility], 154.8, cm, 05/25/22 13:21:00 EST, Height, 56, kg, 12/09/20 9:16:00 EDT, Dry Weight Start Date: 05/26/22 Status: Ordered BiPAP Machine See Instructions, # 1 units, Maintenance, BiPAP 04/12 with a backup rate of 12 with a heated humidifier. 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), 09/04/18 15:13:48 EDT Start Date: 09/04/18 Status: Ordered calcium-vitamin D 600 mg-400 intl units oral tablet 1 tablet, By Mouth, 2 times a day with meals, # 180 tablet, 0 Refills, Maintenance, 07/21/22 6:46:00 EDT, [facility], 90, TAKE 1 TABLET BY MOUTH TWICE A DAY WITH FOOD, 154, cm, 06/22/22 15:01:00EST, Height, 56, kg, 12/09/20 9:16:00 EDT, Dry Weight Start Date: 07/21/22 Status: Ordered Cane See Instructions, # 1 units, Maintenance, as directed for back pain, 09/04/18 15:08:30 EDT Start Date: 09/04/18 Status: Ordered clonazePAM 0.125 mg oral tablet, disintegrating See Instructions, 1 tablet By Mouth Daily at bedtime., # 30 tablet, 0 Refills, Maintenance, 07/11/22 15:10:00 EST, [facility]/pharmacy #0957, Partial fill upon patient request if the prescription is for a schedule II opioid drug., 154, cm, 06/22/22 15:01:00... Start Date: 07/11/22 Status: Ordered CPAP Equipment See Instructions, # 1 units, Refills 12, Tot. 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 Start Date: 06/30/17 Status: Ordered CPAP Equipment See Instructions, # 1 each, Refills 12, Tot. Refills 12, Maintenance, BiPAP supplies: Mask, tubing,filters, headgear, chin strap, heated water chamber Dx: ELSA G47.33 Length of need 99 months Please fax to [facility] fax # [phone], 07/02/20 14:50:0... Start Date: 07/02/20 Status: Ordered cyanocobalamin 500 mcg oral tablet 1 tablet = 500 mcg, By Mouth, Daily, on empty stomach, # 90 tablet, 3 Refills, Maintenance, 03/26/21 20:06:00 EST, Tablet, [facility]/pharmacy #0957, Partial fill upon patient request if the prescription isfor a schedule II opioid drug., 154.8, cm, 03/23/21... Start Date: 03/26/21 Status: Ordered Flovent HFA 220 mcg/inh inhalation aerosol 2 puffs, Inhalation, 2 times a day, AND THROAT AFTER EACH USE., # 12 each, 11 Refills, [facility], 154.8, cm, 09/14/21 9:50:00 EDT, Height, 56, kg, 12/09/20 9:16:00 EDT, Dry Weight Start Date: 11/17/21 Status: Ordered fluticasone 50 mcg/inh nasal spray See Instructions, USE 1 SPRAY IN EACH NOSTRIL DAILY, # 48 mL, 11 Refills, [facility], 90, USE 1 SPRAY IN EACH NOSTRIL DAILY, 154.8, cm, 09/14/21 9:50:00 EDT, Height, 56, kg, 12/09/20 9:16:00 EDT, Dry Weight Start Date: 11/15/21 Status: Ordered lisinopril 10 mg oral tablet 1, tablet, By Mouth, Daily, # 90 tablet, Refills 3, Route to Pharmacy Electronically, [facility], 154.8, cm, 09/14/21 9:50:00 EDT, Height, 56, kg, 12/09/20 9:16:00 EDT, Dry Weight Start Date: 12/07/21 Status: Ordered melatonin 3 mg oral tablet 2 tablet = 6 mg, By Mouth, Daily at bedtime, PRN Insomnia, # 60 tablet, 2 Refills, Maintenance, 08/04/22 12:21:00 EDT, [facility]/pharmacy #0957, Partial fill upon patient request if the prescription is fora schedule II opioid drug., 154, cm, 06/22/22 15:01... Start Date: 08/04/22 Status: Ordered Methadone 0 Refills, Maintenance, 06/22/22 13:11:00 EST, Partial fill upon patient request if the prescription is for a schedule II opioid drug. Start Date: 06/22/22 Status: Ordered nicotine 2 mg oral transmucosal lozenge 1 lozenge = 2 mg, By Mouth, Every 2 hours, # 72 each, 11 Refills, Maintenance, 10/13/20 8:35:00 EDT, [facility]/pharmacy #0957, Partial fill upon patient request if the prescription is for a schedule II opioid drug., 1 lozenge By Mouth Every 2 hours, 154.9,... Start Date: 10/13/20 Status: Ordered Nutritional Supplements See Instructions, # 90 each, Refills 3, Tot. Refills 3, Maintenance, [place] Ensure 1 can TID. Dx: C34.90, R63.4, 03/29/21 15:29:00 EST, Supply Start Date: 03/29/21 Status: Ordered omeprazole 20 mg oral enteric coated capsule 1 capsule = 20 mg, By Mouth, Daily, # 90 capsule, 0 Refills, Maintenance, 08/01/22 14:52:00 EDT, ECCapsule, [facility]/pharmacy #0957, Partial fill upon patient request if the prescription is for a schedule II opioid drug., 154, cm, 06/22/22 15:01:00 EST, H... Start Date: 08/01/22 Status: Ordered Stiolto Respimat 60 ACT 2.5 mcg-2.5 mcg/inh inhalation aerosol 0 Refills, Maintenance, 06/22/22 8:29:00 EST, Partial fill upon patient request if the prescriptionis for a schedule II opioid drug. Start Date: 06/22/22 Status: Ordered TENS Unit TENS Unit, See Instructions, # 1 each, Refills 0, Tot. Refills 0, Maintenance, Use as needed for areas of pain. Assess skin frequently for any redness, sores, lesions, or bleeding., 06/28/22 9:17:00 EST, Supply Start Date: 06/28/22 Status: Ordered Ventolin HFA 108 mcg/inh inhalation aerosol with adapter 2 puffs, Inhalation, 4 times a day, PRN NEEDED FOR WHEEZING, # 18 each, 2 Refills, Maintenance, 07/21/22 6:46:00 EDT, [facility], 154, cm, 06/22/22 15:01:00 EST, Height, 56, kg, 12/09/20 9:16:00 EDT, Dry Weight Start Date: 07/21/22 Status: Ordered Problem List Condition Confirmation Course Effective Dates Status Health St [facility] Informant Age at leaving school - ged Confirmed Active ASCUS Confirmed Active Cheko-Wooten respiration: see 05/25/11 Sleep Report Confirmed 05/25/11 Active Hep C: Cleared without treatment Confirmed Active Clubbing Confirmed Active Drug abuse: Suboxone via [facility] Confirmed Active Esophageal reflux (GERD) Confirmed 05/09/12 Active JASON (generalized anxiety disorder) Confirmed Active HPV: Positive in 07/15; 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, negative in 10/16 Confirmed Active Hypertension Confirmed 08/23/10 Active Lung cancer Confirmed Active Lung nodules Confirmed Active Opioid use disorder Confirmed Active Osteoporosis Confirmed Active Pain in finger of right hand Confirmed Active Palpitations Confirmed Active *[id number] 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 Active Pelvic mass Confirmed Active Emphysema of lung: mixed emphysema/UIP Confirmed Active Major depressive disorder, [facility] Confirmed Active Resting tremor Confirmed Active Tobacco abuse Confirmed Active Tubular adenoma of colon 1 Confirmed 04/22/19 Active 1repeat screening colonoscopy in 2023 Social History Social History Type Response Smoking Status Smoker, current stat us unknown; Other: Patient currently smoking 5-7 cig per day; Tobacco use times per day: 50 years <1ppd; entered on: 06/22/22 Sex Patient Care team information Care Team Personnel Name: Mavis Allen Position: S PCO Associate Professional Member Role: PCP Address: Address: [address] [place] [address]- [place] Care Team Related Persons Name: JOSELIN SCHMIDT Address: home [address] [place] [address] Name: ALYSE HAUSER Address: home [address] [address] Name: NO, ONE AT THIS TIME
--- OUTSIDE RECORDS SUMMARY | 2022-12-26 10:30 | XMS_ITS | Continuity of Care Document ---
Author Name Unknown Organization [facility] Address [address] [place] [address], [address] [place] [address]- Care Team Providers Care Pipe Insulator Name Role Phone Divina MARINELLI, Adalberto Reeder Primary Care Physician [facility] Date[facility]): 04[facility]13[facility]20 - 06/27/20 [facility] [address] [place] [address], [address] [place], [place] [address] Attending Physician: Kiley Wiseman MD Referring Physician: Todd Maria MD Allergies, Adverse Reactions, Alerts Substance Reaction [...] tablet = 0.5 mg, By Mouth, Once, scallop dredger to procedure. May repeat X 1, # 2 tablet, 0 Refills, Soft Stop, 04/24/20 11:56:00 EST, Tablet, [id number], Partial fill upon [...] 11 Refills, Maintenance, 02/18/20 9:43:00 EDT, Tablet, [facility], 1 tablet By [...] 3 Refills, Maintenance, 02/18/20 9:41:00 EDT, Tablet, [facility]/pharmacy #0957, 154.9, cm, 12/30/19 11:15:00 EDT, Height, 55.3, kg, 04/19/19 8:36... Start Date: 02/18/20 Status: Ordered clonazePAM 1 mg oral tablet 1 tablet = 1 mg, By Mouth, 3 times a day, Please fax to [facility] on [address] [phone], # 90 tablet, 2 Refills, Maintenance, 09/17/18 12:46:43 EDT, Tablet Start Date: 09/17/18 Status: Ordered CPAP Equipment See Instructions, # 1 units, Refills 12, Tot. Refills 12, Maintenance, BiPAP supplies: Mask, tubing, filters, headgear, chin strap, heated water chamber Dx: ELSA G47.33 Length of need 99 months Pleasefax to [facility], [phone], 09/04/18 15:13:48 EDT, Co... Start Date: 09/04/18 Status: Ordered CPAP Equipment See Instructions, # 1 units, Refills 12, Tot. 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 Start Date: 06/30/17 Status: Ordered Eucerin Unscented [...] Gm, 11 Refills, Maintenance, 02/18/20 9:43:00 EDT, [facility]/pharmacy #0957,1 sprays Nasal Daily, 154.9, cm, 12/30/19 11:15:00 EDT, Height, 55.3, kg, 04/19/19 8:36:00 EST, DryWeight Start Date: 02/18/20 Status: Ordered Flovent HFA 220 mcg/inh inhalation aerosol See Instructions, TAKE 2 PUFFS BY MOUTH TWICE A DAY RINSE MOUTH AND THROAT AFTER EACH USE, # 12 Unknown, 11 Refills, Soft Stop, 02/18/20 9:42:00 EDT, [facility]/pharmacy #0957, 154.9, cm, 12/30/19 11:15:00 EDT, Height, 55.3, kg, 04/19/19 8:36:00 EST, Dry Weight Start Date: 02/18/20 Status: Ordered Inderal LA 80 mg oral capsule, extended release 80 mg, 1, capsule, By Mouth, Daily, # 30 capsule, Refills 3, Tot. Refills 3, Maintenance, 06/23/20 10:00:00 EST, Route to Pharmacy Electronically, [facility]/pharmacy #0957, To replace Topamax. Partial fillupon patient request if the prescription is for a... Start Date: 06/23/20 Status: Ordered lisinopril 10 mg oral tablet 10 mg, 1, tablet, By Mouth, Daily, # 30 tablet, Refills 11, Tot. Refills 11, Maintenance, 02/18/20 9:43:00 EDT, Route to Pharmacy Electronically, [facility]/pharmacy #[id number], 154.9, cm, 12/30/19 11:15:00 EDT,Height, 55.3, [...] 07/06/20 23:00:00 EST, 06/06/20 19:18:00 EST, Tablet, [facility]/pharmacy #0957, Partial fill upon patient request if the prescription is for a schedule II opioid d... Start Date: 06/06/20 Stop Date: 07/06/20 Status: Ordered ProAir HFA 90 mcg/inh inhalation aerosol with adapter 2, puffs, Inhalation, 4 times a day, PRN, # 1 each, Refills 11, Tot. Refills 11, Maintenance, 04/20/20 13:51:00 EST, Route to Pharmacy Electronically, [id number], [facility]/pharmacy #0957, 154.9, cm, 12/30/19 11:15:00 EDT, Height,... Start Date: 04/20/20 Stop Date: 04/15/21 Status: Ordered Stiolto Respimat 60 ACT 2.5 mcg-2.5 mcg/inh inhalation aerosol 2 puffs, Inhalation, Every 24 hours, to replace tiotropium, # 4 Gm, 11 Refills, Maintenance, 02/18/20 9:43:00 EDT, Aerosol, [facility]/pharmacy #0957, 154.9, cm, 12/30/19 11:15:00 EDT, Height, 55.3, kg, 04/19/19 8:36:00 EST, Dry Weight Start Date: 02/18/20 Status: Ordered Suboxone 8 mg-2 mg sublingual tablet, disintegrating 2 tablet, Sublingual, Daily, 0 Refills, Maintenance, Tablet Start Date: 02/20/12 Status: Ordered Vitamin B2 100 mg oral [...] Active Clubbing(Confirmed) Active Drug abuse: Suboxone via [facility](Confirmed) Active Esophageal reflux (GERD)(Confirmed) [...]
--- OUTSIDE RECORDS SUMMARY | 2022-12-26 10:30 | XMS_ITS | Continuity of Care Document ---
Author Name Unknown Organization [facility] Address [address] [place] [address]- Care Team Providers Care Senior It Project Manager Name Role Phone Adalberto Murcia MD Primary Care Physician [facility] Date[facility]s): 06/24/21 - 07/24/21 [facility] [address] [place], [place] [address] Allergies, Adverse Reactions, Alerts Substance Reaction Severity [...] 17:04:00 EDT, Aerosol, Route to Pharmacy Electronically, [id number]... Start Date: 08/03/20 Status: Ordered BiPAP Machine [...] 56 tablet, 3 Refills, Acute, [id number], 154.9, cm, 06/11/20 9:48:00 EST, Height, 58, [...] Lengthof need 99 months Please fax to [facility], [phone],... Start Date: 06/30/17 Status: Ordered CPAP Equipment See Instructions, # 1 each, Refills 12, Tot. Refills 12, Maintenance, BiPAP supplies: Mask, tubing,filters, headgear, chin strap, heated water chamber Dx: ELSA G47.33 Length of need 99 months Please fax to [facility] fax # [phone], 07/02/20 14:50:0... Start Date: 07/02/20 Status: Ordered cyanocobalamin 500 mcg oral tablet 1 tablet = 500 mcg, By Mouth, Daily, on empty stomach, # 90 tablet, 3 Refills, Maintenance, 03/26/21 20:06:00 EST, Tablet, [facility]/pharmacy #0957, Partial fill upon patient request if the prescription isfor a schedule II opioid drug., 154.8, cm, 03/23/21... Start Date: 03/26/21 Status: Ordered Eucerin Unscented topical lotion See Instructions, apply to skin daily, dispense 1 jar, # 1 each, 11 Refills, Maintenance, 09/25/19 16:37:00 EDT, [facility]/pharmacy #0957, apply to skin daily, dispense [...] Gm, 11 Refills, Maintenance, 11/05/20 17:11:00 EDT, [facility]/pharmacy #0957, 1 sprays Nasal Daily, 154.9, cm, 10/13/20 7:56:00 EDT, Height, 58, kg, 06/05/20 12:02:00 EST, Dry Weight Start Date: 11/05/20 Status: Ordered Flovent HFA 220 mcg/inh inhalation aerosol See Instructions, TAKE 2 PUFFS BY MOUTH TWICE A DAY RINSE MOUTH AND THROAT AFTER EACH USE, # 12 Unknown, 11 Refills, Soft Stop, 11/05/20 17:11:00 EDT, [facility]/pharmacy #0957, 154.9, cm, 10/13/20 7:56:00 EDT, Height, 58, kg, 06/05/20 12:02:00 EST, Dry Weight Start Date: 11/05/20 Status: Ordered Inderal LA 80 mg oral capsule, extended release 80 mg, 1, capsule, By Mouth, Daily, # 30 capsule, Refills 3, Tot. Refills 3, Maintenance, 06/23/20 10:00:00 EST, Route to Pharmacy Electronically, [facility]/pharmacy #0957, To replace Topamax. Partial fillupon patient request if the prescription is for a... Start Date: 06/23/20 Status: Ordered lisinopril 10 mg oral tablet 10 mg, 1, tablet, By Mouth, Daily, # 90 tablet, Refills 3, Tot. Refills 3, Maintenance, 09/28/20 13:15:00 EDT, Route to Pharmacy Electronically, [facility]/pharmacy #0957, 154.9, cm, 09/22/20 10:26:00 EDT, Height, 58, kg, 06/05/20 12:02:00 EST, Dry Weight Start Date: 09/28/20 Stop Date: 09/23/21 Status: Ordered melatonin 3 mg oral tablet 1 tablet = 3 mg, By Mouth, Daily at bedtime, PRN Insomnia, # 60 tablet, 11 Refills, Maintenance, 03/29/21 21:06:00 EST, [facility]/pharmacy #0957, Partial fill upon patient request if the prescription is for a schedule II opioid drug., 154.8, cm, 03/23/21 11... Start Date: 03/29/21 Status: Ordered nicotine 2 mg oral transmucosal lozenge 1 lozenge = 2 mg, By Mouth, Every 2 hours, # 72 each, 11 Refills, Maintenance, 10/13/20 8:35:00 EDT, [facility]/pharmacy #0957, Partial fill upon patient request [...] each, Refills 3, Tot. Refills 3, Maintenance, Montchanin Ensure 1 can TID. Dx: C34.90, R63.4, 03/29/21 15:29:00 EST, Supply Start Date: 03/29/21 Status: Ordered omeprazole 20 mg oral enteric coated capsule 1 capsule = 20 mg, By Mouth, Daily, # 90 capsule, 3 Refills, Maintenance, 07/08/21 15:23:00 EST, ECCapsule, [facility]/pharmacy #0957, Partial fill upon patient request if the prescription is for a schedule II opioid drug., 154.8, cm, 06/29/21 9:00:00 EST,... Start Date: 07/08/21 Status: Ordered Stiolto Respimat 60 ACT 2.5 mcg-2.5 mcg/inh inhalation aerosol 2 puffs, Inhalation, Every 24 hours, to replace tiotropium, # 4 Gm, 11 Refills, Maintenance, 11/05/20 17:11:00 EDT, Aerosol, [facility]/pharmacy #0957, 154.9, cm, 10/13/20 7:56:00 EDT, [...] Active Clubbing(Confirmed) Active Drug abuse: Suboxone via [facility](Confirmed) Active Esophageal reflux (GERD)(Confirmed) 05/09/12 [...]
--- OUTSIDE RECORDS SUMMARY | 2022-12-26 10:30 | XMS_ITS | Continuity of Care Document ---
Author Name Unknown Organization [facility] Address [address] [place] [address] [address], [address] [place] [address]- Care Team Providers Care Chronic Care Nurse Name Role Phone Divina MARINELLI, Adalberto Reeder Primary Care Physician [facility] Date[facility]s): 05/12/20 - 05/19/20 [facility] [address] [place] [address] Drive, [address] [place] [address]- Attending Physician: Kiley Wiseman MD Referring Physician: [...] 9Admin Note: vis 10Admin Note: vis Medications acetaminophen 500 mg oral tablet 2 tablet = 1,000 mg, By Mouth, 3 times a day, PRN Pain , Moderate, # 100 tablet, 1 Refills, Maintenance, 07/31/19 11:08:00 EDT, Tablet, [facility]/pharmacy #0957, 154.9, cm, 07/04/19 9:38:00 EST, Height, 55.3, kg, 04/19/19 8:36:00 EST, Dry Weight Start Date: 07/31/19 Status: Ordered Aerochamber See Instructions, PRN, # 1 each, Refills 5, Tot. Refills 5, Maintenance, Wheezing/Shortness of Breath, as directed with MDI; Please substitute whichever spacer is covered by patient's insurance, Asthma, 08/12/19 15:29:00 EDT, Compound, 154.9, cm, 2... Start Date: 08/12/19 Status: Ordered Ativan 0.5 mg oral tablet 1 tablet = 0.5 mg, By Mouth, Once, yardage caller to procedure. May repeat X 1, # [...] 02/18/20 9:42:00 EDT, Route to Pharmacy Electronically, [facility]/pharmacy #0957, 154.9, cm, 12/30/19 11:15:00 EDT, Height, 55.3, kg, 04/19/19 8:36:00 EST, Dry Weight Start Date: 02/18/20 Status: Ordered cetirizine 10 mg oral tablet 1 tablet = 10 mg, By Mouth, Daily, PRN Other, PRN allergies, # 30 tablet, 11 Refills, Maintenance, 02/18/20 9:43:00 EDT, Tablet, [facility]/pharmacy #0957, 154.9, cm, [...] fax to [facility] on [address] [phone], # 90 tablet, 2 Refills, Maintenance, 09/17/18 12:46:43 EDT, Tablet Start Date: 09/17/18 Status: Ordered CPAP Equipment See Instructions, # 1 units, Refills 12, Tot. Refills 12, Maintenance, BiPAP supplies: Mask, tubing, filters, headgear, chin strap, heated water chamber Dx: ELSA G47.33 Length of need 99 months Pleasefax to [facility], [phone], 09/04/18 15:13:48 EDT, Co... Start Date: 09/04/18 Status: Ordered CPAP Equipment See Instructions, # 1 units, Refills 12, Tot. Refills 12, Maintenance, BIPAP supplies: Mask, tubing, filters, headgear, chin strap, water chamber 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) Lengthof need 99 months Please fax to [facility], [phone],... Start Date: 06/30/17 Status: Ordered [facility] DIPHENHYDRAMINE 25 MG TAB [facility] DIPHENHYDRAMINE 25 MG TAB, 1, tablet, By Mouth, 3 times a day, PRN, # 30 tablet, 5 Refills, Maintenance, 04/30/20 16:02:00 EST, 154.9, cm, 12/30/19 11:15:00 EDT, Height, 55.3, kg, 04/19/19 8:36:00 EST, Dry Weight Start Date: 04/30/20 Status: Ordered diphenhydrAMINE 25 mg oral tablet 1 tablet = 25 mg, By Mouth, 3 times a day, PRN for allergy symptoms, # 30 tablet, 6 Refills, Maintenance, 04/29/20 17:54:00 EST, Tablet, [facility]/pharmacy #0957, 154.9, cm, 12/30/19 11:15:00 EDT, Height, 55.3, kg, 04/19/19 8:36:00 EST, Dry Weight Start Date: 04/29/20 Status: Ordered Eucerin Unscented topical lotion See Instructions, apply to skin daily, dispense 1 jar, # 1 each, 11 Refills, Maintenance, 09/25/19 16:37:00 EDT, [facility]/pharmacy #0957, apply to skin daily, dispense 1 [...] Refills, Maintenance, 02/18/20 9:43:00 EDT, EC Capsule, [facility]/pharmacy #0957, 154.9, cm, 12/30/19 11:15:00 EDT, Height, 55.3, kg, 04/19/19 8:36:00 EST, Dry Weight Start Date: 02/18/20 Status: Ordered ProAir HFA 90 mcg/inh inhalation aerosol with adapter 2, puffs, Inhalation, 4 times a day, PRN, # 1 each, Refills 11, Tot. Refills 11, Maintenance, 04/20/20 13:51:00 EST, Route to Pharmacy Electronically, [id number], [facility]/pharmacy #0957, 154.9, cm, 12/30/19 11:15:00 [...] 12/30/19 11:15... Start Date: 04/29/20 Status: Ordered Vitamin B2 100 mg oral [...] Active Clubbing(Confirmed) Active Drug abuse: Suboxone via [facility](Confirmed) Active Esophageal reflux (GERD)(Confirmed) [...] 04/22/19 Active 1repeat screening colonoscopy in 2023 Vital Signs Most recent to oldest [Reference Range]: 1 Height 154.9 cm (05/12/20 10:36 AM) Weight 59.09 kg (05/12/20 10:36 AM) Oxygen Saturation [94-100 %] 98 % (05/12/20 10:36 AM) Pulse Rate [55-90 bpm] 74 bpm (05/12/20 10:36 AM) Body Mass Index [18.5-24.99] 24.63 (05/12/20 10:36 AM) Blood Pressure [90-138/55-84 mm Hg] 124/ 82mm Hg (05/12/20 10:36 AM) Temperature [96.8-100.4 DegF] 97.1 DegF (05/12/20 10:36 AM) Mode of Delivery (Oxygen) Room air (05/12/20 10:36 AM) Blood pressure sites Arm, right (05/12/20 10:36 AM) Temperature Route Temporal (05/12/20 10:36 AM) Weight Obtained Via Patient/family state d (05/12/20 10:36 AM) Social History Social History Type Response Smoking Status Smoker, current stat us unknown; Other: pt reports smoked 1-2ppd for 50 years; entered on: 05/12/20 Sex 1about 7 cigarettes daily
--- OUTSIDE RECORDS SUMMARY | 2022-12-26 10:30 | XMS_ITS | Continuity of Care Document ---
Author Name Unknown Organization [facility] Address [address] [place] [address]- Care Team Providers Care Deck Builder Name Role Phone Adalberto Murcia MD Primary Care Physician Encounter [facility] Date(s): 08/23/19 - 08/30/19 [facility] [address] [place] [address]- [facility] Attending Physician: Addy MARINELLI, Mavis Ricardo Referring Physician: Adalberto Murcia MD Allergies, Adverse [...] 1 Refills, Maintenance, 07/31/19 11:08:00 EDT, Tablet, [facility]/pharmacy #0957, 154.9, cm, 07/04/19 9:38:00 EST, Height, 55.3, kg, 04/19/19 8:36:00 EST, Dry Weight Start Date: 07/31/19 Status: Ordered Aerochamber See Instructions, PRN, # 1 each, Refills 5, Tot. Refills 5, Maintenance, Wheezing/Shortness of Breath, as directed with MDI; Please substitute whichever spacer is covered by patient's insurance, Asthma, 08/12/19 15:29:00 EDT, Compound, 154.9, cm, 2... Start Date: 08/12/19 Status: Ordered BiPAP Machine See Instructions, # 1 units, Maintenance, BiPAP 04/12 with a backup rate of 12 with a heated humidifier. 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), 09/04/18 15:13:48 EDT Start Date: 09/04/18 Status: Ordered calcium-vitamin D 600 mg-400 intl units oral tablet 1 tablet, By Mouth, 2 times a day, with food, # 60 tablet, 11 Refills, Maintenance, 05/28/19 12:01:00 EST, Tablet, [facility], 1 tablet By Mouth 2 times a day,Instr:with food, 154.9, cm, 05/28/19 11:40:00 EST, Height, 55.3, kg, 04/19/19 8:36:0... Start Date: 05/28/19 Status: Ordered Cane See Instructions, # 1 units, Maintenance, as directed for back pain, 09/04/18 15:08:30 EDT Start Date: 09/04/18 Status: Ordered CeleXA 20 mg oral tablet 20 mg, 1, tablet, By Mouth, Daily, # 90 tablet, Refills 3, Tot. Refills 3, Maintenance, 03/19/19 10:53:39 EST, Route to Pharmacy Electronically, [id number], [facility]/pharmacy #1026 Start Date: 03/19/19 Status: Ordered cetirizine 10 mg oral tablet 1 tablet = 10 mg, By Mouth, Daily, PRN Other, PRN allergies, # 30 tablet, 11 Refills, Maintenance, 05/28/19 12:01:00 EST, Tablet, [facility]/pharmacy #0957, 154.9, cm, 05/28/19 11:40:00 EST, Height, 55.3, kg, 04/19/19 8:36:00 EST, Dry Weight Start Date: 05/28/19 Status: Ordered chantix 1mg tablet 1 tablet = 1 mg, By Mouth, 2 times a day, after meals, to begin after completing starter pack, # 1 pack/packet, 1 Refills, Maintenance, 03/07/19 14:15:20 EDT, Tablet Start Date: 03/07/19 Status: Ordered Chantix Starter Pack 0.5 mg-1 mg oral tablet 1 tablet, By Mouth, 2 times a day, # 1 pack/packet, 0 Refills, Maintenance, 03/07/19 14:12:12 EDT, 1 tablet By Mouth 2 times a day Start Date: 03/07/19 Status: Ordered clonazePAM 1 mg oral tablet TAKE 1 TABLET BY MOUTH 3 TIMES A DAY Start Date: 10/20/17 Status: Ordered clonazePAM 1 mg oral tablet 1 tablet = 1 mg, By Mouth, 3 times a day, Please fax to [facility] on [address] [phone], # 90 tablet, 2 Refills, Maintenance, 09/17/18 12:46:43 EDT, Tablet Start Date: 09/17/18 Status: Ordered CPAP Equipment See Instructions, # 1 units, Refills 12, Tot. Refills 12, Maintenance, BiPAP supplies: Mask, tubing, filters, headgear, chin strap, heated water chamber Dx: ELSA G47.33 Length of need 99 months Pleasefax to [facility], [phone], 09/04/18 15:13:48 EDT, Co... Start Date: 09/04/18 Status: Ordered CPAP Equipment See Instructions, # 1 units, Refills 12, Tot. Refills 12, Maintenance, BIPAP supplies: Mask, tubing, filters, headgear, chin strap, water chamber 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) Lengthof need 99 months Please fax to [facility], [phone],... Start Date: 06/30/17 Status: Ordered diphenhydrAMINE 25 mg oral tablet 1 tablet = 25 mg, By Mouth, 3 times a day, PRN for allergy symptoms, # 30 tablet, 6 Refills, Maintenance, 02/08/19 9:44:22 EDT, Tablet Start Date: 02/08/19 Status: Ordered Eucerin Unscented topical lotion 1 application, Topically, 2 times a day, PRN for dry skin, # 252 mL, 11 Refills, Maintenance, 11/15/13 11:26:58, Lotion, 1 application Topically 2 times a day,PRN:for dry skin Start Date: 11/15/13 Status: Ordered Flonase 50 mcg/inh nasal spray 1 sprays, Nasal, Daily, # 16 Gm, 11 Refills, Maintenance, 05/28/19 12:01:00 EST, [facility]/pharmacy #0957, 1 sprays Nasal Daily, 154.9, cm, 05/28/19 11:40:00 EST, Height, 55.3, kg, 04/19/19 8:36:00 EST, Dry Weight Start Date: 05/28/19 Status: Ordered Flovent HFA 220 mcg/inh inhalation aerosol See Instructions, # 12 Unknown, Refills 11 Tot. Refills 11, TAKE 2 PUFFS BY MOUTH TWICE A DAY [place] AND THROAT AFTER EACH USE, [facility]/pharmacy #1026 Start Date: 03/15/19 Status: Ordered lisinopril 10 mg oral tablet 10 mg, 1, tablet, By Mouth, Daily, # 30 tablet, Refills 11, Tot. Refills 11, Maintenance, 05/28/19 12:01:00 EST, Route to Pharmacy Electronically, [facility]/pharmacy #0957, 154.9, cm, 05/28/19 11:40:00 EST, Height, 55.3, kg, 04/19/19 8:36:00 EST, Dry Weight Start Date: 05/28/19 Status: Ordered nicotine 4 mg oral transmucosal lozenge 1 lozenge = 4 mg, By Mouth, Every 8 hours, for 3 week(s), # 63 lozenge, 1 Refills, Acute 10/03/19 10:28:00 EDT, 08/22/19 10:28:00 EDT, [facility]/pharmacy #0957, 1 lozenge By Mouth Every 8 hours,x3 week(s),154.9, cm, 07/04/19 9:38:00 EST, Height, 55.3, kg,... Start Date: 08/22/19 Stop Date: 10/03/19 Status: Ordered NuLYTELY with Flavor Packs oral [...] daily, # 60 capsule, 11 Refills, Maintenance, 03/19/19 10:41:19 EST, EC Capsule Start Date: 03/19/19 Status: Ordered ProAir HFA 90 mcg/inh inhalation aerosol with adapter 2, puffs, Inhalation, 4 times a day, PRN, # 1 each, Refills 11, Tot. Refills 11, Maintenance, 05/28/19 12:01:00 EST, Route to Pharmacy Electronically, [id number], [facility]/pharmacy #0957, 154.9, cm, 05/28/19 11:40:00 EST, Height,... Start Date: 05/28/19 Stop Date: 05/22/20 Status: Ordered Stiolto Respimat 60 ACT 2.5 mcg-2.5 mcg/inh inhalation aerosol 2 puffs, Inhalation, Every 24 hours, to replace tiotropium, # 60 inhalation, 11 Refills, Maintenance, 03/19/19 10:44:51 EST, Aerosol Start Date: 03/19/19 Status: Ordered Suboxone 8 mg-2 mg sublingual tablet, disintegrating 2 tablet, Sublingual, Daily, 0 Refills, Maintenance, Tablet Start Date: 02/20/12 Status: Ordered Topamax 50 mg oral tablet 1 tablet = 50 mg, By Mouth, 2 times a day, # 60 tablet, 11 Refills, Maintenance, 08/28/18 10:02:28 EDT, Tablet Start Date: 08/28/18 Status: Ordered Vitamin B2 100 mg oral tablet 2 tablet = 200 mg, By Mouth, 2 times a day, # 100 tablet, 11 Refills, Maintenance, 05/28/19 12:01:00 EST, [facility]/pharmacy #0957, 154.9, cm, 05/28/19 11:40:00 EST, Height, 55.3, kg, 04/19/19 8:36:00 EST,Dry Weight Start Date: 05/28/19 Status: Ordered Problem List Condition Effective Dates Status Health Status Inform ant Age at leaving school - ged(Confirmed) Active ASCUS(Confirmed) Active 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 Sleep Report(Confirmed) 05/25/11 Active Hep C: Cleared without treatment(Confirmed) Active Clubbing(Confirmed) Active Drug abuse: Suboxone via [facility](Confirmed) Active Esophageal reflux (GERD)(Confirmed) 05/09/12 Active JASON (generalized anxiety disorder)(Confirmed) Active HPV: Positive in 07/15; neg i n 01/15, negative in 10/16(Confirmed) Active Hypertension(Confirmed) 08/23/10 Active Zachary Duran, [facility] [id number] active care coordination(Confirmed) Active Emphysema of lung: mixed emphysema/UIP(Confirmed) Active [...]
--- OUTSIDE RECORDS SUMMARY | 2022-12-26 10:30 | XMS_ITS | Continuity of Care Document ---
Author Name Unknown Organization [facility] ter Address [address] [place] [address]- Care Team Providers Care Finger Grip Machine Operator Name Role Phone Mavis Allen Primary Care Physician [facility]counter [facility] Date(s): 10/07/22 - 11/12/[address] [address] Attending Physician: Cecilia Morillo Admitting Physician: Cecilia Morillo Referring Physician: Cecilia Morillo Allergies, Adverse Reactions, Alerts Substance Reaction Severity Status Zoloft O/E - Parkinsonian tremor Ac tive Rubber Active Other Environmental Allergy 1 Active 1ELASTIC Immunizations Given and Recorded Vaccine Date Status Refusal Reason [id number] 12y+ bivalent booster vax 05/11/22 Recorded influenza [...] vaccine, inactivated 04/23/08 Give n SARS-CoV-2 mRNA ([id number]) vax 12/14/21 Given SARS-CoV-2 mRNA (boiplaw-[id number]-fhfjw) vax 09/14/21 Given SARS-CoV-2 (COVID-19) mRNA BNT-162b2 [...] 9Admin Note: vis 10Admin Note: vis Medications alendronate 70 mg oral tablet 1 tablet, By Mouth, Every week, # 12 tablet, 3 Refills, Maintenance, 05/26/22 19:48:00 EST, [facility], 154.8, cm, 05/25/22 13:21:00 EST, Height, 56, kg, 12/09/20 9:16:00 EDT, Dry Weight Start Date: 05/26/22 Status: Ordered calcium-vitamin D 600 mg-400 intl units oral tablet 1 tablet, By Mouth, 2 times a day with meals, # 180 tablet, 0 Refills, Maintenance, 07/21/22 6:46:00 EDT, [facility], 90, TAKE 1 TABLET BY MOUTH TWICE A DAY WITH FOOD, 154, cm, 06/22/22 15:01:00EST, Height, 56, kg, 12/09/20 9:16:00 EDT, Dry Weight Start Date: 07/21/22 Status: Ordered Flovent HFA 220 mcg/inh inhalation aerosol 2 puffs, Inhalation, 2 times a day, AND THROAT AFTER EACH USE., # 12 each, 11 Refills, [facility], 154.8, cm, 09/14/21 9:50:00 EDT, Height, 56, kg, 12/09/20 9:16:00 EDT, Dry Weight Start Date: 11/17/21 Status: Ordered fluticasone 50 mcg/inh nasal spray See Instructions, USE 1 SPRAY IN EACH NOSTRIL DAILY, # 48 mL, 11 Refills, [facility], 90, USE 1 SPRAY IN EACH NOSTRIL DAILY, 154.8, cm, 09/14/21 9:50:00 EDT, Height, 56, kg, 12/09/20 9:16:00 EDT, Dry Weight Start Date: 11/15/21 Status: Ordered lisinopril 10 mg oral tablet 1, tablet, By Mouth, Daily, # 90 tablet, Refills 3, Route to Pharmacy Electronically, [facility], 154.8, cm, 09/14/21 9:50:00 EDT, Height, 56, kg, 12/09/20 9:16:00 EDT, Dry Weight Start Date: 12/07/21 Status: Ordered melatonin 3 mg oral tablet 2 tablet = 6 mg, By Mouth, Daily at bedtime, PRN Insomnia, # 60 tablet, 2 Refills, Maintenance, 08/04/22 12:21:00 EDT, [facility]/pharmacy #0957, Partial fill upon patient request if the prescription is fora schedule II opioid drug., 154, cm, 06/22/22 15:01... Start Date: 08/04/22 Status: Ordered methadone 10 mg/5 mL oral solution 40 mL = 80 mg, By Mouth, Daily before breakfast, 0 Refills, Maintenance, 11/03/22 15:43:00 EDT, Solution, Partial fill upon patient request if the prescription is for a schedule II opioid drug. Start Date: 11/03/22 Status: Ordered Nicotrol Inhaler 1 inhalation, Inhalation, Every hour, PRN Other, Nicotine Withdrawal Symptoms (NOT to exceed 16 doses per day), 0 Refills, Maintenance, 11/03/22 15:44:00 EDT, Inhaler, Partial fill upon patient request if the prescription is for a schedule II opioid d... Start Date: 11/03/22 Status: Ordered omeprazole 20 mg oral enteric coated capsule 1 capsule = 20 mg, By Mouth, Daily, # 90 capsule, 0 Refills, Maintenance, 08/01/22 14:52:00 EDT, ECCapsule, [facility]/pharmacy #0957, Partial fill upon patient request if the prescription is for a schedule II opioid drug., 154, cm, 06/22/22 15:01:00 EST, H... Start Date: 08/01/22 Status: Ordered Stiolto Respimat 60 ACT 2.5 mcg-2.5 mcg/inh inhalation aerosol 0 Refills, Maintenance, 06/22/22 8:29:00 EST, Partial fill upon patient request if the prescriptionis for a schedule II opioid drug. Start Date: 06/22/22 Status: Ordered Tylenol 325 mg oral tablet 650 mg, By Mouth, Every 6 hours, PRN, Refills 0, Maintenance, Pain , Mild, 11/03/22 16:02:00 EDT, Partial fill upon patient request if the prescription is for a schedule II opioid drug. Start Date: 11/03/22 Status: Ordered Ventolin HFA 108 mcg/inh inhalation aerosol with adapter 2 puffs, Inhalation, 4 times a day, PRN NEEDED FOR WHEEZING, # 18 each, 2 Refills, Maintenance, 07/21/22 6:46:00 EDT, [facility], 154, cm, 06/22/22 15:01:00 EST, Height, 56, kg, 12/09/20 9:16:00 EDT, Dry Weight Start Date: 07/21/22 Status: Ordered Problem List Condition Confirmation Course Effective Dates Status Health St [facility] Informant Age at leaving school - ged Confirmed Active ASCUS Confirmed Active Che[place] respiration: see 05/25/11 Sleep Report Confirmed 05/25/11 Active Hep C: Cleared without treatment Confirmed Active Clubbing Confirmed Active Esophageal reflux (GERD) Confirmed 05/09/12 Active JASON (generalized anxiety disorder) Confirmed Active HPV: Positive in 07/15; 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, negative in 10/16 Confirmed Active Hypertension Confirmed 08/23/10 Active Lung cancer Confirmed Active Lung nodules Confirmed Active Opioid dependence Confirmed Active Opioid use disorder Confirmed Active Osteoporosis Confirmed Active Pain in finger of right hand Confirmed Active Palpitations Confirmed Active *[id number] Hat Cleaner Sandra Rob Confirmed Active Pelvic mass Confirmed [...] Care team information Care Team Personnel Name: Joyce Brice RN Position: S RN Supv Member Role: Primary Care Nurse Name: Ryan Wilson RN Position: S RN Member Role: Primary Care Nurse Name: Mavis Allen Position: [facility] Associate Professional Member Role: PCP Address: Address: [address] [place] [address]. [address] [place] [address]- Name: Allyn Rhoades Position: S RN Member Role: Primary Care Nurse Name: Saumya Brown RN Position: S RN Member Role: Primary Care Nurse Name: Praveen Sepulveda RN Position: S RN Member Role: Primary Care Nurse Name: Marina Dumont RN Position: S RN Member Role: Primary Care Nurse Name: Delmi Kelly RN Position: S RN Member Role: Primary Care Nurse Care Team Related Persons Name: MIKEJOSELIN SHANE Address: home [address] [place] [address] Name: ALYSE HAUSER Address: home [address] [place] [id number] Name: NO, ONE AT THIS TIME
--- OUTSIDE RECORDS SUMMARY | 2022-12-26 10:31 | XMS_ITS | Continuity of Care Document ---
Author Name Unknown Organization [facility] Address [address] [place] [address]- Care Team Providers Care Build Automation Engineer Name Role Phone Divina MARINELLI, Adalberto Reeder Primary Care Physician En[place] [facility] [id number] Date(s): 04/06/20 - 05/06/[address] [address]- Attending Physician: Angelina Mendoza Admitting Physician: Angelina Mendoza Referring Physician: AdmtrAngelina Allergies, Adverse Reactions, Alerts Substance Reaction Severity [...] 1 Refills, Maintenance, 07/31/19 11:08:00 EDT, Tablet, [facility], 154.9, cm, 07/04/19 9:38:00 EST, Height, [...] 0.5 mg, By Mouth, Once, call center support representative to procedure. May repeat X 1, # [...] 11 Refills, Maintenance, 02/18/20 9:43:00 EDT, Tablet, [facility]/pharmacy #0957, 1 tablet By Mouth 2 times [...] 02/18/20 9:42:00 EDT, Route to Pharmacy Electronically, [facility]/pharmacy #0957, 154.9, cm, 12/30/19 11:15:00 EDT, Height, 55.3, kg, 04/19/19 8:36:00 EST, Dry Weight Start Date: 02/18/20 Status: Ordered cetirizine 10 mg oral tablet 1 tablet = 10 mg, By Mouth, Daily, PRN Other, PRN allergies, # 30 tablet, 11 Refills, Maintenance, 02/18/20 9:43:00 EDT, Tablet, [facility]/pharmacy #0957, 154.9, cm, 12/30/19 11:15:00 EDT, Height, 55.3, kg, 04/19/19 8:36:00 EST, Dry Weight Start Date: 02/18/20 Status: Ordered chantix 1mg tablet 1 tablet = 1 mg, By Mouth, 2 times a day, after meals, to begin after completing starter pack, # 1 pack/packet, 3 Refills, Maintenance, 02/18/20 9:41:00 EDT, Tablet, [facility]/pharmacy #0957, 154.9, cm, 12/30/19 11:15:00 EDT, Height, 55.3, kg, 04/19/19 8:36... Start Date: 02/18/20 Status: Ordered clonazePAM 1 mg oral tablet 1 tablet = 1 mg, By Mouth, 3 times a day, Please fax to [facility] on [address] [phone], # 90 tablet, 2 Refills, Maintenance, 09/17/18 12:46:43 EDT, Tablet Start Date: 09/17/18 Status: Ordered CPAP Equipment See Instructions, # 1 units, Refills 12, Tot. Refills 12, Maintenance, BiPAP supplies: Mask, tubing, filters, headgear, chin strap, heated water chamber Dx: ELSA G47.33 Length of need 99 months Pleasefax to [facility], [phone], 09/04/18 15:13:48 EDT, Co... Start Date: 09/04/18 Status: Ordered CPAP Equipment See Instructions, # 1 units, Refills 12, Tot. 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 Start Date: 06/30/17 Status: Ordered [facility] DIPHENHYDRAMINE 25 MG TAB [facility] DIPHENHYDRAMINE 25 MG TAB, 1, tablet, By [...] 6 Refills, Maintenance, 04/29/20 17:54:00 EST, Tablet, [facility]/pharmacy #0957, 154.9, cm, 12/30/19 11:15:00 EDT, Height, 55.3, kg, 04/19/19 8:36:00 EST, Dry Weight Start Date: 04/29/20 Status: Ordered Eucerin Unscented topical lotion See Instructions, apply to skin daily, dispense 1 jar, # 1 each, 11 Refills, Maintenance, 09/25/19 16:37:00 EDT, [facility]/pharmacy #0957, apply to skin daily, dispense 1 [...] Gm, 11 Refills, Maintenance, 02/18/20 9:43:00 EDT, [facility]/pharmacy #0957,1 sprays Nasal Daily, 154.9, cm, 12/30/19 11:15:00 EDT, Height, 55.3, kg, 04/19/19 8:36:00 EST, DryWeight Start Date: 02/18/20 Status: Ordered Flovent HFA 220 mcg/inh inhalation aerosol See Instructions, TAKE 2 PUFFS BY MOUTH TWICE A DAY RINSE MOUTH AND THROAT AFTER EACH USE, # 12 Unknown, 11 Refills, Soft Stop, 02/18/20 9:42:00 EDT, [facility]/pharmacy #0957, 154.9, cm, 12/30/19 11:15:00 EDT, Height, 55.3, kg, 04/19/19 8:36:00 EST, Dry Weight Start Date: 02/18/20 Status: Ordered lisinopril 10 mg oral tablet 10 mg, 1, tablet, By Mouth, Daily, # 30 tablet, Refills 11, Tot. Refills 11, Maintenance, 02/18/20 9:43:00 EDT, Route to Pharmacy Electronically, [facility]/pharmacy #0957, 154.9, cm, 12/30/19 11:15:00 EDT,Height, 55.3, [...] Refills, Maintenance, 02/18/20 9:43:00 EDT, EC Capsule, [facility]/pharmacy #0957, 154.9, cm, 12/30/19 11:15:00 EDT, Height, 55.3, kg, 04/19/19 8:36:00 EST, Dry Weight Start Date: 02/18/20 Status: Ordered ProAir HFA 90 mcg/inh inhalation aerosol with adapter 2, puffs, Inhalation, 4 times a day, PRN, # 1 each, Refills 11, Tot. Refills 11, Maintenance, 04/20/20 13:51:00 EST, Route to Pharmacy Electronically, [id number], [facility]/pharmacy #0957, 154.9, cm, 12/30/19 11:15:00 EDT, Height,... Start Date: 04/20/20 Stop Date: 04/15/21 Status: Ordered Stiolto Respimat 60 ACT 2.5 mcg-2.5 mcg/inh inhalation aerosol 2 puffs, Inhalation, Every 24 hours, to replace tiotropium, # 4 Gm, 11 Refills, Maintenance, 02/18/20 9:43:00 EDT, Aerosol, [facility]/pharmacy #0957, 154.9, cm, 12/30/19 11:15:00 EDT, Height, [...] Active Clubbing(Confirmed) Active Drug [facility]: [facility]) Active Esophageal reflux (GERD)(Confirmed) 05/09/12 Active JASON [...]
--- OUTSIDE RECORDS SUMMARY | 2022-12-26 10:31 | XMS_ITS | Continuity of Care Document ---
Author Name Unknown Organization [facility] Address [address] [place] [address]- Care Team Providers Care Garment Manufacturing Supervisor Name Role Phone Divina MARINELLI, Adalberto Reeder Primary Care Physician [facility]counter [facility] Date(s): 04/20/21 - 07/15/[address] [address]- Attending Physician: Not on Staff, Attending MD Allergies, Adverse Reactions, Alerts Substance Reaction [...] 17:04:00 EDT, Aerosol, Route to Pharmacy Electronically, [id number]... Start Date: 08/03/20 Status: Ordered BiPAP Machine [...] 11 Refills, Maintenance, 11/05/20 17:11:00 EDT, Tablet, [facility]/pharmacy #0957, 1 tablet By Mouth 2 [...] 56 tablet, 3 Refills, Acute, [facility], 154.9, cm, 06/11/20 9:48:00 EST, Height, 58, [...] need 99 months Please fax to [facility], [phone],... Start Date: 06/30/17 Status: Ordered CPAP Equipment See Instructions, # 1 each, Refills 12, Tot. Refills 12, Maintenance, BiPAP supplies: Mask, tubing,filters, headgear, chin strap, heated water chamber Dx: ELSA G47.33 Length of need 99 months Please fax to [facility] fax # [phone], 07/02/20 14:50:0... Start Date: 07/02/20 Status: Ordered cyanocobalamin 500 mcg oral tablet 1 tablet = 500 mcg, By Mouth, Daily, on empty stomach, # 90 tablet, 3 Refills, Maintenance, 03/26/21 20:06:00 EST, Tablet, [facility]/pharmacy #0957, Partial fill upon patient request [...] 06/23/20 10:00:00 EST, Route to Pharmacy Electronically, [facility]/pharmacy #0957, To replace Topamax. Partial fillupon patient request if the prescription is for a... Start Date: 06/23/20 Status: Ordered lisinopril 10 mg oral tablet 10 mg, 1, tablet, By Mouth, Daily, # 90 tablet, Refills 3, Tot. Refills 3, Maintenance, 09/28/20 13:15:00 EDT, Route to Pharmacy Electronically, [facility]/pharmacy #0957, 154.9, cm, 09/22/20 10:26:00 EDT, Height, 58, kg, 06/05/20 12:02:00 EST, Dry Weight Start Date: 09/28/20 Stop Date: 09/23/21 Status: Ordered melatonin 3 mg oral tablet 1 tablet = 3 mg, By Mouth, Daily at bedtime, PRN Insomnia, # 60 tablet, 11 Refills, Maintenance, 03/29/21 21:06:00 EST, [facility]/pharmacy #0957, Partial fill upon patient request if the prescription is for a schedule II opioid drug., 154.8, cm, 03/23/21 11... Start Date: 03/29/21 Status: Ordered nicotine 2 mg oral transmucosal lozenge 1 lozenge = 2 mg, By Mouth, Every 2 hours, # 72 each, 11 Refills, Maintenance, 10/13/20 8:35:00 EDT, [facility]/pharmacy #0957, Partial fill upon patient request [...] each, Refills 3, Tot. Refills 3, Maintenance, [place] Ensure 1 can TID. Dx: C34.90, R63.4, 03/29/21 15:29:00 EST, Supply Start Date: 03/29/21 Status: Ordered omeprazole 20 mg oral enteric coated capsule 1 capsule = 20 mg, By Mouth, Daily, # 90 capsule, 3 Refills, Maintenance, 07/08/21 15:23:00 EST, ECCapsule, [facility]/pharmacy #0957, Partial fill upon patient request [...] Active Clubbing(Confirmed) Active Drug abuse: Suboxone via [facility](Confirmed) Active Esophageal reflux (GERD)(Confirmed) 05/09/12 [...]
--- OUTSIDE RECORDS SUMMARY | 2022-12-26 10:31 | XMS_ITS | Continuity of Care Document ---
Author Name Unknown Organization [facility] Address [address] [place] [address]- Care Team Providers Care Sales Officer Name Role Phone Divina MARINELLI, Adalberto Reeder Primary Care Physician Encounter [facility] [place] Date(s): 07/31/19 - 08/07/[address] [address]- [place] States Encounter Diagnosis Back pain(Discharge Diagnosis) - 07/31/19 Drug abuse: Suboxone via [facility](Discharge Diagnosis) - 07/31/19 JASON (generalized anxiety disorder)(Discharge Diagnosis) - 07/31/19 Attending Physician: Luci Mujica MD Allergies, Adverse Reactions, Alerts Substance Reaction [...] 1 Refills, Maintenance, 07/31/19 11:08:00 EDT, Tablet, [facility]/pharmacy #0957, 154.9, cm, 07/04/19 9:38:00 EST, Height, 55.3, kg, 04/19/19 8:36:00 EST, Dry Weight Start Date: 07/31/19 Status: Ordered Aerochamber See Instructions, # 1 applicator, Refills 1, Tot. Refills 1, Maintenance, as directed with [facility]I; Please substitute whichever spacer is covered by patient's insurance, Asthma, 04/07/15 10:32:37, Compound Start Date: 04/07/15 Status: Ordered BiPAP Machine See Instructions, # [...] 03/19/19 10:53:39 EST, Route to Pharmacy Electronically, [id number], [facility]/pharmacy #1026 Start Date: 03/19/19 Status: Ordered cetirizine 10 mg oral tablet 1 tablet = 10 mg, By Mouth, Daily, PRN Other, PRN allergies, # 30 tablet, 11 Refills, Maintenance, 05/28/19 12:01:00 EST, Tablet, [facility]/pharmacy #0957, 154.9, cm, 05/28/19 11:40:00 EST, Height, [...] 3 times a day, Please fax to [facility] [address] [phone], # 90 tablet, 2 Refills, Maintenance, 09/17/18 12:46:43 EDT, Tablet Start Date: 09/17/18 Status: Ordered CPAP Equipment See Instructions, # 1 units, Refills 12, Tot. Refills 12, Maintenance, BiPAP supplies: Mask, tubing, filters, headgear, chin strap, heated water chamber Dx: ELSA G47.33 Length of need 99 months Pleasefax to [facility], [phone], 09/04/18 15:13:48 EDT, Co... Start Date: 09/04/18 Status: Ordered CPAP Equipment See Instructions, # 1 units, Refills 12, Tot. 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 Start Date: 06/30/17 Status: Ordered diphenhydrAMINE 25 [...] Gm, 11 Refills, Maintenance, 05/28/19 12:01:00 EST, [facility]/pharmacy #0957, 1 sprays Nasal Daily, 154.9, cm, 05/28/19 11:40:00 EST, Height, 55.3, kg, 04/19/19 8:36:00 EST, Dry Weight Start Date: 05/28/19 Status: Ordered Flovent HFA 220 mcg/inh inhalation aerosol See Instructions, # 12 Unknown, Refills 11 Tot. Refills 11, TAKE 2 PUFFS BY MOUTH TWICE A DAY [place] AND THROAT AFTER EACH USE, [facility]/pharmacy #1026 Start Date: 03/15/19 Status: Ordered ibuprofen 600 mg oral tablet 600 mg, 1, tablet, By Mouth, 3 times a day, PRN, with food, # 270 tablet, Refills 11, Tot. Refills 11, Maintenance, as needed for pain, 06/27/17 17:45:19, Route to Pharmacy Electronically, [id number], [facility]/pharmacy #1026 Start Date: 06/27/17 Status: Ordered lisinopril 10 mg oral tablet 10 mg, 1, tablet, By Mouth, Daily, # 30 tablet, Refills 11, Tot. Refills 11, Maintenance, 05/28/19 12:01:00 EST, Route to Pharmacy Electronically, [facility]/pharmacy #0957, 154.9, cm, 05/28/19 11:40:00 EST, Height, 55.3, kg, 04/19/19 8:36:00 EST, Dry Weight Start Date: 05/28/19 Status: Ordered NuLYTELY with Flavor Packs oral [...] 05/28/19 12:01:00 EST, Route to Pharmacy Electronically, [id number], [facility]/pharmacy #0957, 154.9, cm, 05/28/19 11:40:00 EST, Height,... [...] tablet, 11 Refills, Maintenance, 05/28/19 12:01:00 EST, [facility]/pharmacy #0957, 154.9, cm, 05/28/19 11:40:00 EST, Height, 55.3, kg, 04/19/19 8:36:00 EST,Dry Weight Start Date: 05/28/19 Status: Ordered Problem List Condition Effective Dates Status Health Status Inform ant Age at leaving school - ged(Confirmed) Active ASCUS(Confirmed) Active 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 Sleep Report(Confirmed) 05/25/11 Active Hep C: Cleared without treatment(Confirmed) Active Clubbing(Confirmed) Active Drug abuse: Suboxone via [facility](Confirmed) Active Esophageal reflux (GERD)(Confirmed) 05/09/12 Active JASON (generalized anxiety disorder)(Confirmed) Active HPV: Positive in 07/15; neg i n 01/15, negative in 10/16(Confirmed) Active Hypertension(Confirmed) 08/23/10 Active Emphysema of lung: mixed emphysema/UIP(Confirmed) Active Major depressive disorder, [facility] [employer](Confirmed) Active Resting tremor(Confirmed) Active Tobacco abuse(Confirmed) Active Tubular adenoma of colon(Confirmed) 1 04/22/19 Active 1repeat screening colonoscopy in 2023 Diagnosis Diagnosis Type Effective Dates Health Status Clinical Service Informant Back pain Discharge Diagnosis 07/31/19 Drug abuse: Suboxone via [facility] Discharge Diagnosis 07/31/19 JASON (generalized anxiety disorder) Discharge Diagnosis 07/31/19 Social History Social History Type Response Smoking Status 10 or more cigarette s (1/2 pack or more)/day in last 30 days; Other: pt states vapes, states it is approx to 1ppd; entered on: 05/21/18 Sex 1about 7 cigarettes daily
--- OUTSIDE RECORDS SUMMARY | 2022-12-26 10:31 | XMS_ITS | Continuity of Care Document ---
Author Name Unknown Organization [facility] Address [address] [place] [address]- Care Team Providers Care Wearing Apparel Presser Name Role Phone Divina MARINELLI, Adalberto Reeder Primary Care Physician Encounter [facility] Date(s): 05/28/19 - 11/13/[address] [address] [facility] Attending Physician: Luz Maria Duarte NP Admitting Physician: Luz Maria Duarte NP Allergies, Adverse Reactions, Alerts Substance Reaction Severity [...] 03/19/19 10:53:39 EST, Route to Pharmacy Electronically, [id number], [facility]/pharmacy #[id number] Start Date: 03/19/19 Status: Ordered cetirizine 10 mg oral tablet 1 tablet = 10 mg, By Mouth, Daily, PRN Other, PRN allergies, # 30 tablet, 11 Refills, Maintenance, 05/28/19 12:01:00 EST, Tablet, [facility]/pharmacy #0957, 154.9, cm, 05/28/19 11:40:00 EST, Height, 55.3, kg, 04/19/19 8:36:00 EST, Dry Weight Start Date: 05/28/19 Status: Ordered Chantix Starter Pack 0.5 mg-1 mg oral tablet 1 tablet, By Mouth, 2 times a day, # 53 doses/times, 0 Refills, Maintenance, 10/21/19 13:19:00 EDT,[facility], 28, TAKE 1 TABLET BY MOUTH TWICE A DAY, 154.9, cm, 08/22/19 15:10:00 EDT, Height, 55.3, kg, 04/19/19 8:36:00 EST, Dry Weight Start Date: 10/21/19 Status: Ordered clonazePAM 1 mg oral tablet TAKE 1 TABLET BY MOUTH 3 TIMES A DAY Start Date: 10/20/17 Status: Ordered clonazePAM 1 mg oral tablet 1 tablet = 1 mg, By Mouth, 3 times a day, Please fax to [facility] [address] [phone], # 90 tablet, 2 Refills, Maintenance, 09/17/18 12:46:43 EDT, Tablet Start Date: 09/17/18 Status: Ordered CPAP Equipment See Instructions, # 1 units, Refills 12, Tot. Refills 12, Maintenance, BiPAP supplies: Mask, tubing, filters, headgear, chin strap, heated water chamber Dx: ELSA G47.33 Length of need 99 months Pleasefax to [facility], [phone], 09/04/18 15:13:48 EDT, Co... Start Date: 09/04/18 Status: Ordered CPAP Equipment See Instructions, # 1 units, Refills 12, Tot. 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 Start Date: 06/30/17 Status: Ordered diphenhydrAMINE 25 [...] Gm, 11 Refills, Maintenance, 05/28/19 12:01:00 EST, [facility], 1 sprays Nasal Daily, 154.9, cm, 05/28/19 11:40:00 EST, Height, 55.3, kg, 04/19/19 8:36:00 EST, Dry Weight Start Date: 05/28/19 Status: Ordered Flovent HFA 220 mcg/inh inhalation aerosol See Instructions, # 12 Unknown, Refills 11 Tot. Refills 11, TAKE 2 PUFFS BY MOUTH TWICE A DAY [place] AND THROAT AFTER EACH USE, [facility]/pharmacy #1026 Start Date: 03/15/19 Status: Ordered lisinopril 10 mg oral tablet 10 mg, 1, tablet, By Mouth, Daily, # 30 tablet, Refills 11, Tot. Refills 11, Maintenance, 05/28/19 12:01:00 EST, Route to Pharmacy Electronically, [facility]/pharmacy #0957, 154.9, cm, 05/28/19 11:40:00 EST, Height, [...] 05/28/19 12:01:00 EST, Route to Pharmacy Electronically, [id number], [facility]/pharmacy #0957, 154.9, cm, 05/28/19 11:40:00 EST, Height,... [...] 1 Refills, Maintenance, 09/18/19 8:59:00 EDT, Tablet, [facility]/pharmacy #0957, 154.9, cm, 08/22/19 15:10:00 EDT, Height, 55.3, kg, 04/19/19 8:36:00EST, Dry Weight Start Date: 09/18/19 Status: Ordered Vitamin B2 100 mg oral tablet 2 tablet = 200 mg, By Mouth, 2 times a day, # 100 tablet, 11 Refills, Maintenance, 05/28/19 12:01:00 EST, [facility]/pharmacy #0957, 154.9, cm, 05/28/19 11:40:00 EST, Height, 55.3, kg, 04/19/19 8:36:00 EST,Dry Weight Start Date: 05/28/19 Status: Ordered Problem List Condition Effective Dates Status Health Status Inform ant Age at leaving school - ged(Confirmed) Active ASCUS(Confirmed) Active 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 Sleep Report(Confirmed) 05/25/11 Active Hep C: Cleared without treatment(Confirmed) Active Clubbing(Confirmed) Active Drug abuse: Suboxone via [facility](Confirmed) Active Esophageal reflux (GERD)(Confirmed) 05/09/12 Active [...]
--- OUTSIDE RECORDS SUMMARY | 2022-12-26 10:31 | XMS_ITS | Continuity of Care Document ---
Author Name Unknown Organization [facility] Address [address] [place] [address]- Care Team Providers Care Electrical Design Technician Name Role Phone Divina MARINELLI, Adalberto Reeder Primary Care Physician Encounter [facility] Date(s): 12/02/19 - 01/01/[address] [address]- [facility] Allergies, Adverse Reactions, Alerts Substance [...] 1 Refills, Maintenance, 07/31/19 11:08:00 EDT, Tablet, [facility]/pharmacy #0957, 154.9, cm, 07/04/19 9:38:00 EST, [...] 11 Refills, Maintenance, 05/28/19 12:01:00 EST, Tablet, [facility]/pharmacy #0957, 1 tablet By Mouth 2 [...] 03/19/19 10:53:39 EST, Route to Pharmacy Electronically, [id number], [facility]/pharmacy #1026 Start Date: 03/19/19 Status: Ordered cetirizine 10 mg oral tablet 1 tablet = 10 mg, By Mouth, Daily, PRN Other, PRN allergies, # 30 tablet, 11 Refills, Maintenance, 05/28/19 12:01:00 EST, Tablet, [facility]/pharmacy #0957, 154.9, cm, 05/28/19 11:40:00 EST, Height, 55.3, kg, 04/19/19 8:36:00 EST, Dry Weight Start Date: 05/28/19 Status: Ordered Chantix Starter Pack 0.5 mg-1 mg oral tablet 1 tablet, By Mouth, 2 times a day, as directed on package labeling, # 53 tablet, 0 Refills, Maintenance, 11/19/19 9:48:00 EDT, Tablet, [facility]/pharmacy #0957, 1 tablet By Mouth 2 times a day,Instr:as directed on package labeling, 154.9, cm, 08/22/19 15:10... Start Date: 11/19/19 Status: Ordered Chantix Starter Pack 0.5 mg-1 mg oral tablet 1 tablet, By Mouth, 2 times a day, # 53 doses/times, 0 Refills, Maintenance, 10/21/19 13:19:00 EDT,[facility] STORE 78869, 28, TAKE 1 TABLET BY MOUTH TWICE [...] 3 times a day, Please fax to [facility] [address] [phone], # 90 tablet, 2 Refills, Maintenance, 09/17/18 12:46:43 EDT, Tablet Start Date: 09/17/18 Status: Ordered CPAP Equipment See Instructions, # 1 units, Refills 12, Tot. Refills 12, Maintenance, BiPAP supplies: Mask, tubing, filters, headgear, chin strap, heated water chamber Dx: ELSA G47.33 Length of need 99 months Pleasefax to [facility], [phone], 09/04/18 15:13:48 EDT, Co... Start Date: 09/04/18 Status: Ordered CPAP Equipment See Instructions, # 1 units, Refills 12, Tot. 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 Start Date: 06/30/17 Status: Ordered diphenhydrAMINE 25 [...] DAY [place] AND THROAT AFTER EACH USE, [facility]/pharmacy #1026 Start Date: 03/15/19 Status: Ordered lisinopril 10 mg oral tablet 10 mg, 1, tablet, By Mouth, Daily, # 30 tablet, Refills 11, Tot. Refills 11, Maintenance, 05/28/19 12:01:00 EST, Route to Pharmacy Electronically, [facility]/pharmacy #0957, 154.9, cm, 05/28/19 11:40:00 EST, [...] 05/28/19 12:01:00 EST, Route to Pharmacy Electronically, [id number], [facility]/pharmacy #0957, 154.9, cm, 05/28/19 11:40:00 EST, [...] 03/03/20 15:21:00 EDT, 12/02/19 15:20:00 EDT, Tablet, [facility]/pharmacy #0957, 154.9, cm, 08/22/19 15:10:00 EDT, Height, 55.3, kg, 04/19/19 8:36:00 EST, Dry Weight Start Date: 12/02/19 Stop Date: 03/03/20 Status: Ordered Topamax 50 mg oral tablet 1 tablet = 50 mg, By Mouth, 2 times a day, # 180 tablet, 1 Refills, Maintenance, 09/18/19 8:59:00 EDT, Tablet, [facility]/pharmacy #0957, 154.9, cm, 08/22/19 15:10:00 EDT, Height, 55.3, kg, 04/19/19 8:36:00EST, Dry Weight Start Date: 09/18/19 Status: Ordered Vitamin B2 100 mg oral tablet 2 tablet = 200 mg, By Mouth, 2 times a day, # 100 tablet, 11 Refills, Maintenance, 05/28/19 12:01:00 EST, [facility], 154.9, cm, 05/28/19 11:40:00 EST, Height, 55.3, kg, 04/19/19 8:36:00 EST,Dry Weight Start Date: 05/28/19 Status: Ordered Problem List Condition Effective Dates Status Health Status Inform ant Age at leaving school - ged(Confirmed) Active ASCUS(Confirmed) Active 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 Sleep Report(Confirmed) 05/25/11 Active Hep C: Cleared without treatment(Confirmed) Active Clubbing(Confirmed) Active Drug abuse: Suboxone via [facility](Confirmed) Active Esophageal reflux (GERD)(Confirmed) 05/09/12 [...]
--- OUTSIDE RECORDS SUMMARY | 2022-12-26 10:31 | XMS_ITS | Continuity of Care Document ---
Author Name Unknown Organization [facility] Address [address] [place] [address]- Care Team Providers Care Computer Numerical Control Operator Name Role Phone Gideon Nice PROCESSING REP, Jennyfer Primary Care Physician Encounter [facility] Date(s): 01/21/22 - 02/20/[address] [address]- Allergies, Adverse Reactions, Alerts Substance Reaction Severity Status Zoloft O/E - Parkinsonian tremor Ac tive Rubber Active Other Environmental Allergy 1 Active 1ELASTIC Immunizations Given and Recorded Vaccine Date Status Refusal Reason SARS-CoV-2 mRNA (ewexmoo-nulu-tpzmn) vax 12/14/21 Given SARS-CoV-2 mRNA (csvtnze-faun-ekecz) vax 09/14/21 Given SARS-CoV-2 (COVID-19) mRNA BNT-162b2 [...] cm, 2... Start Date: 08/12/19 Status: Ordered alendronate 70 mg oral tablet 1 tablet = 70 mg, By Mouth, Every week, # 12 tablet, 3 Refills, Maintenance, 09/14/21 10:11:00 EDT,Tablet, [facility]/pharmacy #0956, Partial fill upon patient request if the [...] with meals, # 180 tablet, 1 Refills, [facility] STORE 04277, 90, TAKE 1 TABLET BY MOUTH TWICE [...] PhysicianStop 04/15/22 8:28:00 EST, 12/14/21 8:27:00 EDT, [facility]/pharmacy #0957, 154.8, cm, 09/14/21 9:50:00 EDT, Height, 56, kg, 12/09/20 9:16:00 EDT, Dry Weight Start Date: 12/14/21 Stop Date: 04/15/22 Status: Ordered clonazePAM 0.25 mg oral tablet, disintegrating See Instructions, 1 tablet By Mouth 2 times a day as needed. Mass Pat Reviewed. Please fill on/after 01/24/22, # 40 tablet, 2 Refills, Maintenance, 01/24/22 16:19:00 EDT, [facility]/pharmacy #0957, Partial fill upon patient request if the prescription is for... Start Date: 01/24/22 Status: Ordered CPAP Equipment See Instructions, # 1 units, Refills 12, Tot. Refills 12, Maintenance, BIPAP supplies: Mask, tubing, filters, headgear, chin strap, water chamber 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) Lengthof need 99 months Please fax to [facility], [phone],... Start Date: 06/30/17 Status: Ordered CPAP Equipment See Instructions, # 1 each, Refills 12, Tot. Refills 12, Maintenance, BiPAP supplies: Mask, tubing,filters, headgear, chin strap, heated water chamber Dx: ELSA G47.33 Length of need 99 months Please fax to [facility] fax # [phone], 07/02/20 14:50:0... Start Date: 07/02/20 Status: Ordered cyanocobalamin 500 mcg oral tablet 1 tablet = 500 mcg, By Mouth, Daily, on empty stomach, # 90 tablet, 3 Refills, Maintenance, 03/26/21 20:06:00 EST, Tablet, [facility]/pharmacy #0957, Partial fill upon patient request if the prescription isfor a schedule II opioid drug., 154.8, cm, 03/23/21... Start Date: 03/26/21 Status: Ordered Eucerin Unscented topical lotion See Instructions, apply to skin daily, dispense 1 jar, # 1 each, 11 Refills, Maintenance, 09/25/19 16:37:00 EDT, [facility]/pharmacy #0957, apply to skin daily, dispense [...] EACH USE., # 12 each, 11 Refills, [facility], 154.8, cm, 09/14/21 9:50:00 EDT, Height, 56, kg, 12/09/20 9:16:00 EDT, Dry Weight Start Date: 11/17/21 Status: Ordered fluticasone 50 mcg/inh nasal spray See Instructions, USE 1 SPRAY IN EACH NOSTRIL DAILY, # 48 mL, 11 Refills, [facility] 82[facility], 90, USE 1 SPRAY IN EACH NOSTRIL DAILY, 154.8, cm, 09/14/21 9:50:00 EDT, Height, 56, kg, 12/09/20 9:16:00 EDT, Dry Weight Start Date: 11/15/21 Status: Ordered Inderal LA 80 mg oral capsule, extended release 80 mg, 1, capsule, By Mouth, Daily, # 30 capsule, Refills 3, Tot. Refills 3, Maintenance, 06/23/20 10:00:00 EST, Route to Pharmacy Electronically, [facility]/pharmacy #0957, To replace Topamax. Partial fillupon patient request if the prescription is for a... Start Date: 06/23/20 Status: Ordered lisinopril 10 mg oral tablet 1, tablet, By Mouth, Daily, # 90 tablet, Refills 3, Route to Pharmacy Electronically, [facility] ST[facility] 28921, 154.8, cm, 09/14/21 9:50:00 EDT, Height, 56, kg, 12/09/20 9:16:00 EDT, Dry Weight Start Date: 12/07/21 Status: Ordered melatonin 3 mg oral tablet 1 tablet = 3 mg, By Mouth, Daily at bedtime, PRN Insomnia, # 60 tablet, 11 Refills, Maintenance, 01/24/22 16:19:00 EDT, [facility]/pharmacy #0957, Partial fill upon patient request if the prescription is for a schedule II opioid drug., 154.8, cm, 09/14/21 9:... Start Date: 01/24/22 Status: Ordered nicotine 2 mg oral transmucosal lozenge 1 lozenge = 2 mg, By Mouth, Every 2 hours, # 72 each, 11 Refills, Maintenance, 10/13/20 8:35:00 EDT, [facility]/pharmacy #0957, Partial fill upon patient request [...] each, Refills 3, Tot. Refills 3, Maintenance, [place] Ensure 1 can TID. Dx: C34.90, R63.4, 03/29/21 15:29:00 EST, Supply Start Date: 03/29/21 Status: Ordered omeprazole 20 mg oral enteric coated capsule 1 capsule = 20 mg, By Mouth, Daily, # 90 capsule, 3 Refills, Maintenance, 07/08/21 15:23:00 EST, ECCapsule, [facility]/pharmacy #0957, Partial fill upon patient request if the prescription is for a schedule II opioid drug., 154.8, cm, 06/29/21 9:00:00 EST,... Start Date: 07/08/21 Status: Ordered Stiolto Respimat 60 ACT 2.5 mcg-2.5 mcg/inh inhalation aerosol 2 puffs, Inhalation, Every 24 hours, TO REPLACE TIOTROPIUM., # 4 mL, 11 Refills, [facility], 154.8, cm, 09/14/21 9:50:00 EDT, Height, 56, kg, 12/09/20 9:16:00 EDT, Dry Weight Start Date: 11/17/21 Status: Ordered Ventolin HFA 108 mcg/inh inhalation aerosol with adapter 2 puffs, Inhalation, 4 times a day, PRN NEEDED FOR WHEEZING, # 18 each, 5 Refills, [facility], 154.8, cm, 09/14/21 9:50:00 EDT, Height, 56, kg, 12/09/20 9:16:00 EDT, Dry Weight Start Date: 11/28/21 Status: Ordered Problem List Condition Confirmation Course Effective Dates Status Health St atus Informant Age at leaving school - ged Confirmed Active ASCUS Confirmed Active Cheko-Wooten respiration: see 05/25/11 Sleep Report Confirmed 05/25/11 Active Hep C: Cleared without treatment Confirmed Active Clubbing Confirmed Active Drug abuse: Suboxone via [facility] Confirmed Active Esophageal reflux (GERD) Confirmed 05/09/12 Active JASON (generalized anxiety disorder) Confirmed Active HPV: Positive in 07/15; 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, negative in 10/16 Confirmed Active Hypertension Confirmed 4/18/11 Active Lung cancer Confirmed Active Lung nodules Confirmed Active Opioid use disorder Confirmed Active Osteoporosis Confirmed Active Pain in finger of right hand Confirmed Active Pelvic mass Confirmed Active Emphysema [...] on: 05/12/20 Sex 1about 7 cigarettes daily Patient Care team information Personnel Name: Jennyfer Stokse NP Address: Address: [address] [place] [address]
--- OUTSIDE RECORDS SUMMARY | 2022-12-26 10:31 | XMS_ITS | Continuity of Care Document ---
Author Name Unknown Organization [facility] Address [address] [place] [address]- Care Team Providers Care Ic Designer Custom Name Role Phone Divina MARINELLI, Adalberto Reeder Primary Care Physician [place] [facility] [place]s): 07/19/21 - 08/18/[address] [address]- Attending Physician: Angelina Mendoza Admitting Physician: Angelina [...] 17:04:00 EDT, Aerosol, Route to Pharmacy Electronically, [id number]... Start Date: 08/03/20 Status: Ordered BiPAP Machine See Instructions, # 1 units, Maintenance, BiPAP /6 with a backup rate of 12 with [...] 56 tablet, 3 Refills, Acute, [facility], 154.9, cm, 06/11/20 9:48:00 EST, Height, 58, [...] Lengthof need 99 months Please fax to [facility], [phone],... Start Date: 06/30/17 Status: Ordered CPAP Equipment See Instructions, # 1 each, Refills 12, Tot. Refills 12, Maintenance, BiPAP supplies: Mask, tubing,filters, headgear, chin strap, heated water chamber Dx: LESA G47.33 Length of need 99 months Please fax to [facility] # [phone], 07/02/20 14:50:0... Start Date: 07/02/20 Status: Ordered [...] 06/23/20 10:00:00 EST, Route to Pharmacy Electronically, [facility]/pharmacy #0957, To replace Topamax. Partial fillupon patient request if the prescription is for a... Start Date: 06/23/20 Status: Ordered lisinopril 10 mg oral tablet 10 mg, 1, tablet, By Mouth, Daily, # 90 tablet, Refills 3, Tot. Refills 3, Maintenance, 09/28/20 13:15:00 EDT, Route to Pharmacy Electronically, [facility]/pharmacy #0957, 154.9, cm, 09/22/20 10:26:00 EDT, Height, 58, kg, 06/05/20 12:02:00 EST, Dry Weight Start Date: 09/28/20 Stop Date: 09/23/21 Status: Ordered melatonin 3 mg oral tablet 1 tablet = 3 mg, By Mouth, Daily at bedtime, PRN Insomnia, # 60 tablet, 11 Refills, Maintenance, 03/29/21 21:06:00 EST, [facility]/pharmacy #0957, Partial fill upon patient request if the prescription is for a schedule II opioid drug., 154.8, cm, 03/23/21 11... Start Date: 03/29/21 Status: Ordered nicotine 2 mg oral transmucosal lozenge 1 lozenge = 2 mg, By Mouth, Every 2 hours, # 72 each, 11 Refills, Maintenance, 10/13/20 8:35:00 EDT, [facility], Partial fill upon patient [...] each, Refills 3, Tot. Refills 3, Maintenance, [place] Ensure 1 can TID. Dx: C34.90, R63.4, 03/29/21 15:29:00 EST, Supply Start Date: 03/29/21 Status: Ordered omeprazole 20 mg oral enteric coated capsule 1 capsule = 20 mg, By Mouth, Daily, # 90 capsule, 3 Refills, Maintenance, 07/08/21 15:23:00 EST, ECCapsule, [facility]/pharmacy #0957, Partial fill upon patient request if the prescription is for a schedule II opioid drug., 154.8, cm, 06/29/21 9:00:00 EST,... Start Date: 07/08/21 Status: Ordered Stiolto Respimat 60 ACT 2.5 mcg-2.5 mcg/inh inhalation aerosol 2 puffs, Inhalation, Every 24 hours, to replace tiotropium, # 4 Gm, 11 Refills, Maintenance, 11/05/20 17:11:00 EDT, Aerosol, [facility]/pharmacy #0957, 154.9, cm, 10/13/20 7:56:00 EDT, Height, 58, kg, 06/05/20 12:02:00 EST, Dry Weight Start Date: 11/05/20 Status: Ordered Ventolin HFA 108 mcg/inh inhalation aerosol with adapter 2 puffs, Inhalation, 4 times a day, PRN for wheezing, # 18 Gm, 11 Refills, Maintenance, 11/12/20 9:46:00 EDT, Aerosol, [facility]/pharmacy #0957, Partial fill upon patient request [...] Active Clubbing(Confirmed) Active Drug abuse: Suboxone via [facility](Confirmed) Active Esophageal reflux (GERD)(Confirmed) 05/09/12 Active [...]
--- OUTSIDE RECORDS SUMMARY | 2022-12-26 10:31 | XMS_ITS | Continuity of Care Document ---
Author Name Unknown Organization [facility] Address [address] [place] [address]- Care Team Providers Care Thread Trimmer Name Role Phone Divina MARINELLI, Adalberto Reeder Primary Care Physician Encounter [facility] [place] Date(s): 05/14/21 - 06/16/21 [facility] [address] [place], [place] [address] Attending Physician: Marie Muir MD Admitting [...] 07/14/20 Recorded influenza virus vaccine, inactivated 02/18/21 Jatindre rded influenza virus vaccine, inactivated 1 02/23/20 [...] 17:04:00 EDT, Aerosol, Route to Pharmacy Electronically, [id number]... Start Date: 08/03/20 Status: Ordered BiPAP Machine [...] 11 Refills, Maintenance, 11/05/20 17:11:00 EDT, Tablet, [facility]/pharmacy #0957, 1 tablet By Mouth 2 times [...] 56 tablet, 3 Refills, Acute, [facility], 154.9, cm, 06/11/20 9:48:00 EST, Height, 58, kg, 06/05/20 12:02:00 EST, Dry Weight Start Date: 08/03/20 Status: Ordered clonazePAM 1 mg oral tablet 1 tablet = 1 mg, By Mouth, 2 times a day, PRN Anxiety, Please dispense on/after 06/09/21, # 60 tablet, 0 Refills, Maintenance, 05/31/21 14:34:00 EST, Tablet, [facility]/pharmacy #0957, 154.8, cm, 04/20/21 13:17:00 EST, Height, 56, kg, 12/09/20 9:16:00 EDT, Dry... Start Date: 05/31/21 Status: Ordered CPAP Equipment See Instructions, # 1 units, Refills 12, Tot. Refills 12, Maintenance, BIPAP supplies: Mask, tubing, filters, headgear, chin strap, water chamber 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) Lengthof need 99 months Please fax to [facility], [phone],... Start Date: 06/30/17 Status: Ordered CPAP Equipment See Instructions, # 1 each, Refills 12, Tot. Refills 12, Maintenance, BiPAP supplies: Mask, tubing,filters, headgear, chin strap, heated water chamber Dx: ELSA G47.33 Length of need 99 months Please fax to [facility] fax # [phone], 07/02/20 14:50:0... Start Date: 07/02/20 Status: Ordered [...] 06/23/20 10:00:00 EST, Route to Pharmacy Electronically, [facility]/pharmacy #0957, To replace Topamax. Partial fillupon patient request if the prescription is for a... Start Date: 06/23/20 Status: Ordered lisinopril 10 mg oral tablet 10 mg, 1, tablet, By Mouth, Daily, # 90 tablet, Refills 3, Tot. Refills 3, Maintenance, 09/28/20 13:15:00 EDT, Route to Pharmacy Electronically, [facility]/pharmacy #0957, 154.9, cm, 09/22/20 10:26:00 EDT, Height, 58, kg, 06/05/20 12:02:00 EST, Dry Weight Start Date: 09/28/20 Stop Date: 09/23/21 Status: Ordered melatonin 3 mg oral tablet 1 tablet = 3 mg, By Mouth, Daily at bedtime, PRN Insomnia, # 60 tablet, 11 Refills, Maintenance, 03/29/21 21:06:00 EST, [facility]/pharmacy #0957, Partial fill upon patient request if [...] each, Refills 3, Tot. Refills 3, Maintenance, [place] Ensure 1 can TID. Dx: C34.90, R63.4, [...] Active Clubbing(Confirmed) Active Drug abuse: Suboxone via [facility](Confirmed) Active Esophageal reflux (GERD)(Confirmed) 05/09/12 [...]
--- OUTSIDE RECORDS SUMMARY | 2022-12-26 10:31 | XMS_ITS | Continuity of Care Document ---
Author Name Unknown Organization [facility] Address [address] [place] [address] Kostas gupta, [address] [place] [address]- Care Team Providers Care Customer Consultant Name Role Phone Mavis Allen Primary Care Physician Encounter [facility] Date(s): 11/24/22 - 12/24/22 [facility] [address] [place] [address] Drive, [address] [place] [address]- Attending Physician: Angelina Mendoza Admitting Physician: Angelina Mendoza Referring Physician: AdmtrAngelina Allergies, Adverse Reactions, Alerts Substance Reaction Severity Status Zoloft O/E - Parkinsonian tremor Ac tive Rubber Active Other Environmental Allergy 1 Active 1ELASTIC Immunizations Given and Recorded Vaccine Date Status Refusal Reason [id number] 12y+ bivalent booster vax 05/11/22 Recorded influenza [...] vaccine, inactivated 04/23/08 Give n SARS-CoV-2 mRNA ([id number]) vax 12/14/21 Given SARS-CoV-2 mRNA ([id number]-scym-kenya) vax 09/14/21 Given SARS-CoV-2 (COVID-19) mRNA BNT-162b2 [...] 9Admin Note: vis 10Admin Note: vis Medications ascorbic acid 1000 mg oral tablet 1 tablet = 1,000 mg, By Mouth, Daily, # 90 tablet, 1 Refills, Maintenance, 11/18/22 15:43:00 EDT, Tablet, [facility]/pharmacy #[id number], Partial fill upon patient request if the prescription is for a schedule II opioid drug., 154.94, cm, 11/18/22 15:19:00 EDT, H... Start Date: 11/18/22 Status: Ordered busPIRone 10 mg oral tablet 10 mg, 1, tablet, By Mouth, 2 times a day, TAKE 1 TABLET BY MOUTH TWICE A DAY, # 60 tablet, Refills3, Tot. Refills 3, Maintenance, 12/15/22 16:24:00 EDT, Route to Pharmacy Electronically, [facility]/pharmacy #0957, Partial fill upon patient request if the p... Start Date: 12/15/22 Status: Ordered calcium-vitamin D 600 mg-400 intl units oral tablet 1 tablet, By Mouth, 2 times a day with meals, # 180 tablet, 0 Refills, Maintenance, 12/21/22 11:39:00 EDT, [facility], 90, TAKE 1 TABLET BY MOUTH TWICE A DAY WITH FOOD, 153.7, cm, 12/14/22 15:55:00 EDT, Height, 56.6, kg, 11/25/22 9:09:00 EDT, Dry... Start Date: 12/21/22 Status: Ordered clonazePAM 0.25 mg oral tablet, disintegrating 1 tablet = 0.25 mg, By Mouth, 2 times a day, PRN Anxiety, as needed for severe anxiety only, # 12 tablet, 0 Refills, Maintenance, 12/21/22 17:04:00 EDT, DIS Tablet, [facility]/pharmacy #0957, Partial fill upon patient request if the prescription is for a placido... Start Date: 12/21/22 Status: Ordered docusate sodium 100 mg oral capsule 1 capsule = 100 mg, By Mouth, 3 times a day, PRN as needed for constipation, # 90 capsule, 0 Refills, Maintenance, 12/15/22 16:26:00 EDT, Capsule, [facility]/pharmacy #0957, Partial fill upon patient request if the prescription is for a schedule II opioid dr... Start Date: 12/15/22 Status: Ordered Flovent HFA 220 mcg/inh inhalation aerosol 2 puffs, Inhalation, 2 times a day, AND THROAT AFTER EACH USE., # 12 each, 11 Refills, [facility], 154.8, cm, 09/14/21 9:50:00 EDT, Height, 56, kg, 12/09/20 9:16:00 EDT, Dry Weight Start Date: 11/17/21 Status: Ordered fluticasone 50 mcg/inh nasal spray See Instructions, USE 1 SPRAY IN EACH NOSTRIL DAILY, # 48 mL, 11 Refills, [facility], 90, USE 1 SPRAY IN EACH NOSTRIL DAILY, 154.8, cm, 09/14/21 9:50:00 EDT, Height, 56, kg, 12/09/20 9:16:00 EDT, Dry Weight Start Date: 11/15/21 Status: Ordered lidocaine-prilocaine 2.5%-2.5% topical cream 1 application, Topically, Once, apply thin layer over healed port site up to 60 minutes prior to port use, # 30 Gm, 1 Refills, Soft Stop, 12/08/22 16:31:00 EDT, Cream, [facility]/pharmacy #0957, Partial fill upon patient request if the prescription is for a... Start Date: 12/08/22 Status: Ordered lisinopril 10 mg oral tablet 1, tablet, By Mouth, Daily, # 90 tablet, Refills 3, Route to Pharmacy Electronically, [facility], 154.8, cm, 09/14/21 9:50:00 EDT, Height, 56, kg, 12/09/20 9:16:00 EDT, Dry Weight Start Date: 12/07/21 Status: Ordered melatonin 3 mg oral tablet 2 tablet = 6 mg, By Mouth, Daily at bedtime, PRN Insomnia, # 60 tablet, 2 Refills, Maintenance, 08/04/22 12:21:00 EDT, [facility]/pharmacy #0957, Partial fill upon patient request if [...] opioid drug. Start Date: 11/03/22 Status: Ordered nicotine 21 mg/24 hr transdermal film, extended release 1 patch, Topically, Daily, # 30 patch, 0 Refills, Maintenance, 11/18/22 16:17:00 EDT, Patch, Partial fill upon patient request if the prescription is for a schedule II opioid drug. Start Date: 11/18/22 Status: Ordered ondansetron 8 mg oral tablet 1 tablet = 8 mg, By Mouth, Every 8 hours, PRN Nausea, # 30 tablet, 2 Refills, Maintenance, 12/09/2315:31:00 EDT, [facility]/pharmacy #0957, Partial fill upon patient request if the prescription is for a schedule II opioid drug., 153.7, cm, 11/25/22 9:09:00... Start Date: 12/08/22 Status: Ordered pantoprazole 40 mg oral delayed release tablet 1 tablet = 40 mg, By Mouth, Daily, # 30 tablet, 0 Refills, Maintenance, 12/15/22 16:23:00 EDT, [facility] Tablet, 153.7, cm, 12/14/22 15:55:00 EDT, Height, 56.6, kg, 11/25/22 9:09:00 EDT, Dry Weight Start Date: 12/15/22 Status: Ordered prochlorperazine 5 mg oral tablet 1 tablet = 5 mg, By Mouth, Every 6 hours, PRN Nausea, # 30 tablet, 1 Refills, Maintenance, 12/09/2315:31:00 EDT, [facility]/pharmacy #0957, Partial fill upon patient request if the prescription is for a schedule II opioid drug., 153.7, cm, 11/25/22 9:09:00... Start Date: 12/08/22 Status: Ordered Senna-Time 8.6 mg oral tablet 1 tablet = 8.6 mg, By Mouth, Daily at bedtime, PRN as needed for constipation, # 90 tablet, 0 Refills, Acute 12/16/23 16:26:00 EDT, 12/15/22 16:25:00 EDT, Tablet, [facility]/pharmacy #0957, Partial fill upon patient request if the prescription is for a sched... Start Date: 12/15/22 Stop Date: 12/16/23 Status: Ordered Stiolto Respimat 60 ACT 2.5 [...] opioid drug. Start Date: 11/03/22 Status: Ordered venlafaxine 37.5 mg oral capsule, extended release See Instructions, TAKE 1 CAPSULE BY MOUTH DAILY AT 8AM, # 90 capsule, 0 Refills, Maintenance, 12/15/22 16:25:00 EDT, XR Capsule, [facility]/pharmacy #0957, Partial fill upon patient request if the prescription is for a schedule II opioid drug., 153.7, cm, 08... Start Date: 12/15/22 Status: Ordered Ventolin HFA 108 mcg/inh inhalation aerosol with adapter 2 puffs, Inhalation, 4 times a day, PRN NEEDED FOR WHEEZING, # 18 each, 2 Refills, Maintenance, 11/15/22 10:32:00 EDT, [facility], 154.94, cm, 11/04/22 16:07:00 EDT, Height, 57.8, kg, 10/27/22 17:33:00 EDT, Dry Weight Start Date: 11/15/22 Status: Ordered Problem List Condition Confirmation Course [...] 10/16 Confirmed Active Hypertension Confirmed 08/23/10 Active Insomnia Confirmed Active Lung cancer Confirmed Active Lung nodules Confirmed Active Opioid dependence Confirmed Active Opioid use disorder Confirmed Active Osteoporosis Confirmed Active Pain in finger of right hand Confirmed Active Palpitations Confirmed Active Papule of skin Confirmed Active *[id number] 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 Confirmed Active Pelvic mass Confirmed Active Emphysema of lung: mixed emphysema/UIP Confirmed Active Major depressive disorder, [facility] Confirmed Active Resting tremor Confirmed Active Tobacco abuse Confirmed Active Tubular adenoma of colon 1 Confirmed 04/22/19 Active 1repeat screening colonoscopy in 2023 Social History Social History Type Response Smoking Status 10 or more cigarette s (1/2 pack or more)/day in last 30 days; Interested in cessation: No; Patient wants NRT during admission No entered on: 11/25/22 Sex Patient Care team information Care Team Personnel Name: Joyce Brice RN Position: [facility] RN Supv Member Role: Primary Care Nurse Name: Mavis Allen Position: [facility] PCO Associate Professional Member Role: PCP Address: Address: [address] [place] [address]. [address] [place] [address]- Name: Allyn Rhoades Position: S RN Member Role: Primary Care Nurse Name: Yoselin Gaxiola RN Position: [facility] Onco RN Member Role: Primary Care Nurse Name: [...] Persons Name: MIKEJOSELIN SHANE Address: home [address] [place] [address] Name: ALYSE HAUSER Address: home [address] [place] [address] Name: NO, ONE AT THIS TIME
--- OUTSIDE RECORDS SUMMARY | 2022-12-26 10:31 | XMS_ITS | Continuity of Care Document ---
Author Name Unknown Organization [facility] Address [address] [place] [address]- Care Team Providers Care Gambling Dealer Name Role Phone Adalberto Murcia MD Primary Care Physician Encounter [facility] Date(s): 05/17/21 - 06/16/21 [facility] [address] [place] [address]- Allergies, Adverse Reactions, Alerts Substance Reaction Severity [...] 17:04:00 EDT, Aerosol, Route to Pharmacy Electronically, [id number]... Start Date: 08/03/20 Status: Ordered BiPAP Machine [...] 56 tablet, 3 Refills, Acute, [facility], 154.9, cm, 06/11/20 9:48:00 EST, Height, 58, kg, 06/05/20 12:02:00 EST, Dry Weight Start Date: 08/03/20 Status: Ordered clonazePAM 1 mg oral tablet 1 tablet = 1 mg, By Mouth, 2 times a day, PRN Anxiety, Please dispense on/after 06/09/21, # 60 tablet, 0 Refills, Maintenance, 05/31/21 14:34:00 EST, Tablet, [facility], 154.8, cm, 04/20/21 13:17:00 EST, Height, 56, kg, 12/09/20 9:16:00 EDT, Dry... Start Date: 05/31/21 Status: Ordered CPAP Equipment See Instructions, # 1 units, Refills 12, Tot. Refills 12, Maintenance, BIPAP supplies: Mask, tubing, filters, headgear, chin strap, water chamber Dx: Cheko león respiration, severe (786.04) Lengthof need 99 months Please fax to [facility], [phone],... Start Date: 06/30/17 Status: Ordered CPAP Equipment See Instructions, # 1 each, Refills 12, Tot. Refills 12, Maintenance, BiPAP supplies: Mask, tubing,filters, headgear, chin strap, heated water chamber Dx: ELSA G47.33 Length of need 99 months Please fax to [facility] fax # [phone], 07/02/20 14:50:0... Start Date: 07/02/20 Status: Ordered [...] 06/23/20 10:00:00 EST, Route to Pharmacy Electronically, [facility]/pharmacy #0957, To replace Topamax. Partial fillupon patient request if the prescription is for a... Start Date: 06/23/20 Status: Ordered lisinopril 10 mg oral tablet 10 mg, 1, tablet, By Mouth, Daily, # 90 tablet, Refills 3, Tot. Refills 3, Maintenance, 09/28/20 13:15:00 EDT, Route to Pharmacy Electronically, [facility]/pharmacy #0957, 154.9, cm, 09/22/20 10:26:00 EDT, Height, 58, kg, 06/05/20 12:02:00 EST, Dry Weight Start Date: 09/28/20 Stop Date: 09/23/21 Status: Ordered melatonin 3 mg oral tablet 1 tablet = 3 mg, By Mouth, Daily at bedtime, PRN Insomnia, # 60 tablet, 11 Refills, Maintenance, 03/29/21 21:06:00 EST, [facility]/pharmacy #0957, Partial fill upon patient request if the prescription is for a schedule II opioid drug., 154.8, cm, 03/23/21 11... Start Date: 03/29/21 Status: Ordered nicotine 2 mg oral transmucosal lozenge 1 lozenge = 2 mg, By Mouth, Every 2 hours, # 72 each, 11 Refills, Maintenance, 10/13/20 8:35:00 EDT, [facility]/pharmacy #0957, Partial fill upon [...] each, Refills 3, Tot. Refills 3, Maintenance, [facility] 1 can TID. Dx: C34.90, R63.4, [...] Active Clubbing(Confirmed) Active Drug abuse: Suboxone via [facility](Confirmed) Active Esophageal reflux (GERD)(Confirmed) 05/09/12 [...]
--- OUTSIDE RECORDS SUMMARY | 2022-12-26 10:31 | XMS_ITS | Continuity of Care Document ---
Author Name Unknown Organization [facility] Address [address] [place] [address]- Care Team Providers Care Lithograph Designer Name Role Phone Divina MARINELLI, Adalberto Reeder Primary Care Physician Encounter [facility] Date(s): 03/24/21 - 04/23/[address] [address]- Allergies, Adverse Reactions, Alerts Substance Reaction Severity [...] 17:04:00 EDT, Aerosol, Route to Pharmacy Electronically, [id number]... Start Date: 08/03/20 Status: Ordered BiPAP Machine [...] 11 Refills, Maintenance, 11/05/20 17:11:00 EDT, Tablet, [facility]/pharmacy #0957, 1 tablet By Mouth 2 [...] 56 tablet, 3 Refills, Acute, [facility], 154.9, cm, 06/11/20 9:48:00 EST, Height, 58, kg, 06/05/20 12:02:00 EST, Dry Weight Start Date: 08/03/20 Status: Ordered clonazePAM 1 mg oral tablet 1 tablet = 1 mg, By Mouth, 2 times a day, PRN Anxiety, Please dispense on/after 05/08/21, # 60 tablet, 0 Refills, Maintenance, 04/20/21 13:33:00 EST, Tablet, [facility]/pharmacy #0957, 154.8, cm, 04/20/21 13:17:00 EST, Height, 56, kg, 12/09/20 9:16:00 EDT, Dry... Start Date: 04/20/21 Status: Ordered CPAP Equipment See Instructions, # 1 units, Refills 12, Tot. 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 Start Date: 06/30/17 Status: Ordered CPAP Equipment See Instructions, # 1 each, Refills 12, Tot. Refills 12, Maintenance, BiPAP supplies: Mask, tubing,filters, headgear, chin strap, heated water chamber Dx: ELSA G47.33 Length of need 99 months Please fax to [facility] fax # [phone], 07/02/20 14:50:0... Start Date: 07/02/20 Status: Ordered [...] 06/23/20 10:00:00 EST, Route to Pharmacy Electronically, [facility]/pharmacy #0957, To replace Topamax. Partial fillupon patient request if the prescription is for a... Start Date: 06/23/20 Status: Ordered lisinopril 10 mg oral tablet 10 mg, 1, tablet, By Mouth, Daily, # 90 tablet, Refills 3, Tot. Refills 3, Maintenance, 09/28/20 13:15:00 EDT, Route to Pharmacy Electronically, [facility]/pharmacy #0957, 154.9, cm, 09/22/20 10:26:00 EDT, Height, 58, kg, 06/05/20 12:02:00 EST, Dry Weight Start Date: 09/28/20 Stop Date: 09/23/21 Status: Ordered melatonin 3 mg oral tablet 1 tablet = 3 mg, By Mouth, Daily at bedtime, PRN Insomnia, # 60 tablet, 11 Refills, Maintenance, 03/29/21 21:06:00 EST, [facility]/pharmacy #0957, Partial fill upon patient request [...] each, Refills 3, Tot. Refills 3, Maintenance, [place] [facility] 1 can TID. Dx: C34.90, R63.4, 03/29/21 15:29:00 EST, Supply Start Date: 03/29/21 Status: Ordered Stiolto Respimat 60 ACT 2.5 mcg-2.5 mcg/inh inhalation aerosol 2 puffs, Inhalation, Every 24 hours, to replace tiotropium, # 4 Gm, 11 Refills, Maintenance, 11/05/20 17:11:00 EDT, Aerosol, [facility]/pharmacy #0957, 154.9, cm, 10/13/20 7:56:00 EDT, [...] Active Clubbing(Confirmed) Active Drug abuse: Suboxone via [facility](Confirmed) Active Esophageal reflux (GERD)(Confirmed) 05/09/12 Active [...]
--- OUTSIDE RECORDS SUMMARY | 2022-12-26 10:31 | XMS_ITS | Continuity of Care Document ---
Author Name Unknown Organization [facility] Address [address] [place] [address]- Care Team Providers Care Race And Sports Book Writer Name Role Phone Gideon Nice POWERBUILDER, Jennyfer Primary Care Physician Encounter [facility] Date(s): 03/02/22 - 04/01/22 [facility] [address] [place] [address]- Allergies, Adverse Reactions, Alerts Substance Reaction Severity Status Zoloft O/E - Parkinsonian tremor Ac tive Rubber Active Other Environmental Allergy 1 Active 1ELASTIC Immunizations Given and Recorded Vaccine Date Status Refusal Reason SARS-CoV-2 mRNA (zfgmaeq-ypfr-qbarl) vax 12/14/21 Given SARS-CoV-2 mRNA (vqztymj-ncct-fjuzl) vax 09/14/21 Given SARS-CoV-2 (COVID-19) mRNA BNT-162b2 [...] tablet, 3 Refills, Maintenance, 09/14/21 10:11:00 EDT,Tablet, [facility]/pharmacy #0957, Partial fill upon patient [...] with meals, # 180 tablet, 1 Refills, [facility], 90, TAKE 1 TABLET BY MOUTH TWICE [...] PhysicianStop 04/15/22 8:28:00 EST, 12/14/21 8:27:00 EDT, [facility]/pharmacy #0957, 154.8, cm, 09/14/21 9:50:00 EDT, Height, 56, kg, 12/09/20 9:16:00 EDT, Dry Weight Start Date: 12/14/21 Stop Date: 04/15/22 Status: Ordered clonazePAM 0.25 mg oral tablet, disintegrating See Instructions, 1 tablet By Mouth 2 times a day as needed. Mass Pat Reviewed., # 40 tablet, 0 Refills, Maintenance, 03/28/22 4:50:00 EST, [facility]/pharmacy #0957, Partial fill upon patient request if the prescription is for a schedule II opioid drug., 1... Start Date: 03/28/22 Status: Ordered CPAP Equipment See Instructions, # 1 units, Refills 12, Tot. 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 Start Date: 06/30/17 Status: Ordered CPAP Equipment See Instructions, # 1 each, Refills 12, Tot. Refills 12, Maintenance, BiPAP supplies: Mask, tubing,filters, headgear, chin strap, heated water chamber Dx: ELSA G47.33 Length of need 99 months Please fax to [facility] fax # [phone], 07/02/20 14:50:0... Start Date: 07/02/20 Status: Ordered cyanocobalamin 500 mcg oral tablet 1 tablet = 500 mcg, By Mouth, Daily, on empty stomach, # 90 tablet, 3 Refills, Maintenance, 03/26/21 20:06:00 EST, Tablet, [facility]/pharmacy #0957, Partial fill upon patient request if the prescription isfor a schedule II opioid drug., 154.8, cm, 03/23/21... Start Date: 03/26/21 Status: Ordered Eucerin Unscented topical lotion See Instructions, apply to skin daily, dispense 1 jar, # 1 each, 11 Refills, Maintenance, 09/25/19 16:37:00 EDT, [facility]/pharmacy #0957, apply to skin daily, [...] EACH USE., # 12 each, 11 Refills, [facility], 154.8, cm, 09/14/21 9:50:00 EDT, Height, 56, kg, 12/09/20 9:16:00 EDT, Dry Weight Start Date: 11/17/21 Status: Ordered fluticasone 50 mcg/inh nasal spray See Instructions, USE 1 SPRAY IN EACH NOSTRIL DAILY, # 48 mL, 11 Refills, [facility], 90, USE 1 SPRAY IN EACH NOSTRIL DAILY, 154.8, cm, 09/14/21 9:50:00 EDT, Height, 56, kg, 12/09/20 9:16:00 EDT, Dry Weight Start Date: 11/15/21 Status: Ordered Inderal LA 80 mg oral capsule, extended release 80 mg, 1, capsule, By Mouth, Daily, # 30 capsule, Refills 3, Tot. Refills 3, Maintenance, 06/23/20 10:00:00 EST, Route to Pharmacy Electronically, [facility]/pharmacy #0957, To replace Topamax. Partial fillupon patient request if the prescription is for a... Start Date: 06/23/20 Status: Ordered lisinopril 10 mg oral tablet 1, tablet, By Mouth, Daily, # 90 tablet, Refills 3, Route to Pharmacy Electronically, [facility]236, 154.8, cm, 09/14/21 9:50:00 EDT, Height, 56, kg, 12/09/20 9:16:00 EDT, Dry Weight Start Date: 12/07/21 Status: Ordered melatonin 3 mg oral tablet 1 tablet = 3 mg, By Mouth, Daily at bedtime, PRN Insomnia, # 60 tablet, 11 Refills, Maintenance, 01/24/22 16:19:00 EDT, [facility]/pharmacy #0957, Partial fill upon patient request if the prescription is for a schedule II opioid drug., 154.8, cm, 09/14/21 9:... Start Date: 01/24/22 Status: Ordered nicotine 2 mg oral transmucosal lozenge 1 lozenge = 2 mg, By Mouth, Every 2 hours, # 72 each, 11 Refills, Maintenance, 10/13/20 8:35:00 EDT, [facility]/pharmacy #0957, Partial fill upon patient [...] each, Refills 3, Tot. Refills 3, Maintenance, [place] Ensure 1 can TID. Dx: C34.90, R63.4, 03/29/21 15:29:00 EST, Supply Start Date: 03/29/21 Status: Ordered omeprazole 20 mg oral enteric coated capsule 1 capsule = 20 mg, By Mouth, Daily, # 90 capsule, 3 Refills, Maintenance, 07/08/21 15:23:00 EST, ECCapsule, [facility]/pharmacy #0957, Partial fill upon patient request if the prescription is for a schedule II opioid drug., 154.8, cm, 06/29/21 9:00:00 EST,... Start Date: 07/08/21 Status: Ordered Stiolto Respimat 60 ACT 2.5 mcg-2.5 mcg/inh inhalation aerosol 2 puffs, Inhalation, Every 24 hours, TO REPLACE TIOTROPIUM., # 4 mL, 11 Refills, [facility], 154.8, cm, 09/14/21 9:50:00 EDT, Height, 56, kg, 12/09/20 9:16:00 EDT, Dry Weight Start Date: 11/17/21 Status: Ordered Ventolin HFA 108 mcg/inh inhalation aerosol with adapter 2 puffs, Inhalation, 4 times a day, PRN NEEDED FOR WHEEZING, # 18 each, 5 Refills, [facility], 154.8, cm, 09/14/21 9:50:00 EDT, Height, 56, [...] Clubbing Confirmed Active Drug abuse: Suboxone via [facility] Confirmed Active Esophageal reflux (GERD) Confirmed 05/09/12 Active JASON (generalized anxiety disorder) Confirmed Active HPV: Positive in 07/15; 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, negative in 10/16 Confirmed Active Hypertension Confirmed 08/23/10 Active Lung cancer Confirmed Active Lung nodules Confirmed Active Opioid use disorder Confirmed Active Osteoporosis Confirmed Active Pain in finger of right hand Confirmed Active *[id number] paige Escamilla Confirmed Active Pelvic mass Confirmed Active Emphysema [...] 7 cigarettes daily Patient Care team information Care Team Personnel Name: Jennyfer Stokes NP Position: [facility] PCO Associate Professional Member Role: PCP Address: Address: [address] [place] [address]- Care Team Related Persons Name: JOSELIN SCHMIDT Address: [address] [place] [address] Name: ALYSE HAUSER Address: home [address] [place] [address] Name: NO, ONE AT THIS TIME
--- OUTSIDE RECORDS SUMMARY | 2022-12-26 10:31 | XMS_ITS | Continuity of Care Document ---
Author Name Unknown Organization [facility] Address [address] [place] [address]- Care Team Providers Care Bankruptcy Attorney Name Role Phone Divina MARINELLI, Adalberto Reeder Primary Care Physician [facility]counter [facility] Date(s): 03/24/21 - 04/23/[address] [address]- Allergies, Adverse Reactions, Alerts Substance Reaction Severity [...] 17:04:00 EDT, Aerosol, Route to Pharmacy Electronically, [id number]... Start Date: 08/03/20 Status: Ordered BiPAP Machine [...] 11 Refills, Maintenance, 11/05/20 17:11:00 EDT, Tablet, [facility]/pharmacy #0957, 1 tablet By Mouth 2 [...] 56 tablet, 3 Refills, Acute, [facility], 154.9, cm, 06/11/20 9:48:00 EST, Height, 58, kg, 06/05/20 12:02:00 EST, Dry Weight Start Date: 08/03/20 Status: Ordered clonazePAM 1 mg oral tablet 1 tablet = 1 mg, By Mouth, 2 times a day, PRN Anxiety, Please dispense on/after 05/08/21, # 60 tablet, 0 Refills, Maintenance, 04/20/21 13:33:00 EST, Tablet, [facility]/pharmacy #0957, 154.8, cm, 04/20/21 13:17:00 EST, Height, 56, kg, 12/09/20 9:16:00 EDT, Dry... Start Date: 04/20/21 Status: Ordered CPAP Equipment See Instructions, # 1 units, Refills 12, Tot. 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 Start Date: 06/30/17 Status: Ordered CPAP Equipment See Instructions, # 1 each, Refills 12, Tot. Refills 12, Maintenance, BiPAP supplies: Mask, tubing,filters, headgear, chin strap, heated water chamber Dx: ELSA G47.33 Length of need 99 months Please fax to [facility] fax # [phone], 07/02/20 14:50:0... Start Date: 07/02/20 Status: Ordered [...] 06/23/20 10:00:00 EST, Route to Pharmacy Electronically, [facility]/pharmacy #0957, To replace Topamax. Partial fillupon patient request if the prescription is for a... Start Date: 06/23/20 Status: Ordered lisinopril 10 mg oral tablet 10 mg, 1, tablet, By Mouth, Daily, # 90 tablet, Refills 3, Tot. Refills 3, Maintenance, 09/28/20 13:15:00 EDT, Route to Pharmacy Electronically, [facility]/pharmacy #0957, 154.9, cm, 09/22/20 10:26:00 EDT, Height, 58, kg, 06/05/20 12:02:00 EST, Dry Weight Start Date: 09/28/20 Stop Date: 09/23/21 Status: Ordered melatonin 3 mg oral tablet 1 tablet = 3 mg, By Mouth, Daily at bedtime, PRN Insomnia, # 60 tablet, 11 Refills, Maintenance, 03/29/21 21:06:00 EST, [facility]/pharmacy #0957, Partial fill upon patient request [...] each, Refills 3, Tot. Refills 3, Maintenance, [place] Ensure 1 can TID. Dx: C34.90, R63.4, 03/29/21 15:29:00 EST, Supply Start Date: 03/29/21 Status: Ordered Stiolto Respimat 60 ACT 2.5 mcg-2.5 mcg/inh inhalation aerosol 2 puffs, Inhalation, Every 24 hours, to replace tiotropium, # 4 Gm, 11 Refills, Maintenance, 11/05/20 17:11:00 EDT, Aerosol, [facility]/pharmacy #0957, 154.9, cm, 10/13/20 7:56:00 EDT, [...] Active Clubbing(Confirmed) Active Drug abuse: Suboxone via [facility](Confirmed) Active Esophageal reflux (GERD)(Confirmed) 05/09/12 Active [...]
--- OUTSIDE RECORDS SUMMARY | 2022-12-26 10:31 | XMS_ITS | Continuity of Care Document ---
Author Name Unknown Organization [facility] Address [address] [place] [address]- Care Team Providers Care Diagram Clerk Name Role Phone Adalberto Murcia MD Primary Care Physician Encounter [facility] Date(s): 05/25/19 - 09/22/19 [facility] [address] [place] [address]- [facility] Attending Physician: Qamar Xie Admitting Physician: Qamar Xie Referring Physician: Adalberto Murcia MD Allergies, Adverse [...] 03/19/19 10:53:39 EST, Route to Pharmacy Electronically, [id number], [facility]/pharmacy #1026 Start Date: 03/19/19 Status: Ordered cetirizine 10 mg oral tablet 1 tablet = 10 mg, By Mouth, Daily, PRN Other, PRN allergies, # 30 tablet, 11 Refills, Maintenance, 05/28/19 12:01:00 EST, Tablet, [facility]/pharmacy #0957, 154.9, cm, 05/28/19 11:40:00 EST, Height, [...] [facility] [address] [phone], # 90 tablet, 2 Refills, Maintenance, 09/17/18 12:46:43 EDT, Tablet Start Date: 09/17/18 Status: Ordered CPAP Equipment See Instructions, # 1 units, Refills 12, Tot. Refills 12, Maintenance, BiPAP supplies: Mask, tubing, filters, headgear, chin strap, heated water chamber Dx: ELSA G47.33 Length of need 99 months Pleasefax to [facility], [phone], 09/04/18 15:13:48 EDT, Co... Start Date: 09/04/18 Status: Ordered CPAP Equipment See Instructions, # 1 units, Refills 12, Tot. 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 Start Date: 06/30/17 Status: Ordered diphenhydrAMINE 25 [...] Gm, 11 Refills, Maintenance, 05/28/19 12:01:00 EST, [facility]/pharmacy #0957, 1 sprays Nasal Daily, 154.9, cm, 05/28/19 11:40:00 EST, Height, 55.3, kg, 04/19/19 8:36:00 EST, Dry Weight Start Date: 05/28/19 Status: Ordered Flovent HFA 220 mcg/inh inhalation aerosol See Instructions, # 12 Unknown, Refills 11 Tot. Refills 11, TAKE 2 PUFFS BY MOUTH TWICE A DAY [place] AND THROAT AFTER EACH USE, [facility]/pharmacy #1026 Start Date: 03/15/19 Status: Ordered lisinopril 10 mg oral tablet 10 mg, 1, tablet, By Mouth, Daily, # 30 tablet, Refills 11, Tot. Refills 11, Maintenance, 05/28/19 12:01:00 EST, Route to Pharmacy Electronically, [facility]/pharmacy #0957, 154.9, cm, 05/28/19 11:40:00 EST, Height, 55.3, kg, 04/19/19 8:36:00 EST, Dry Weight Start Date: 05/28/19 Status: Ordered nicotine 4 mg oral transmucosal lozenge 1 lozenge = 4 mg, By Mouth, Every 8 hours, for 3 week(s), # 63 lozenge, 1 Refills, Acute 10/03/19 10:28:00 EDT, 08/22/19 10:28:00 EDT, [facility]/pharmacy #0957, 1 lozenge By Mouth Every 8 [...] 05/28/19 12:01:00 EST, Route to Pharmacy Electronically, [id number], [facility]/pharmacy #0957, 154.9, cm, 05/28/19 11:40:00 EST, Height,... [...] 1 Refills, Maintenance, 09/18/19 8:59:00 EDT, Tablet, [facility]/pharmacy #0957, 154.9, cm, 08/22/19 15:10:00 EDT, Height, 55.3, kg, 04/19/19 8:36:00EST, Dry Weight Start Date: 09/18/19 Status: Ordered Vitamin B2 100 mg oral tablet 2 tablet = 200 mg, By Mouth, 2 times a day, # 100 tablet, 11 Refills, Maintenance, 05/28/19 12:01:00 EST, [facility]/pharmacy #0957, 154.9, cm, 05/28/19 11:40:00 EST, Height, 55.3, kg, 04/19/19 8:36:00 EST,Dry Weight Start Date: 05/28/19 Status: Ordered Problem List Condition Effective Dates Status Health Status Inform ant Age at leaving school - ged(Confirmed) Active ASCUS(Confirmed) Active 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 Sleep Report(Confirmed) 05/25/11 Active Hep C: Cleared without treatment(Confirmed) Active Clubbing(Confirmed) Active Drug abuse: Suboxone via [facility](Confirmed) Active Esophageal reflux (GERD)(Confirmed) 05/09/12 Active JASON (generalized anxiety disorder)(Confirmed) Active HPV: Positive in 07/15; neg i n 01/15, negative in 10/16(Confirmed) Active Hypertension(Confirmed) 08/23/10 Active Zachary Duran, Malaika/MARY [id number] active care coordination(Confirmed) Active Emphysema of lung: [...]
--- OUTSIDE RECORDS SUMMARY | 2022-12-26 10:31 | XMS_ITS | Continuity of Care Document ---
Author Name Unknown Organization [facility] Address [address] [place] [address], [address] [place] [address]- Care Team Providers Care Aluminum Fabrication Supervisor Name Role Phone Divina MARINELLI, Adalberto Reeder Primary Care Physician [facility]counter [facility] Date(s): 07/21/20 - 08/20/20 [facility] [address] [place] [address], [address] [place], [place] [address] [place] Attending Physician: Angelina Mendoza Admitting Physician: Angelina Mendoza Referring Physician: AdmtrAngelina Allergies, Adverse Reactions, Alerts Substance Reaction Severity Status Zoloft O/E - Parkinsonian tremor Ac tive Rubber Active Other Environmental Allergy 1 Active 1ELASTIC Immunizations Given and Recorded Vaccine Date Status Refusal Reason SARS-CoV-2 (COVID-19) mRNA BNT-162b2 vac 08/04/20 Recorded SARS-CoV-2 (COVID-19) mRNA BNT-162b2 vac 07/14/20 Recorded zoster vaccine, inactivated 1 02/23/20 Recorded influenza virus vaccine, inactivated 2 02/23/20 Re corded influenza virus vaccine, inactivated 02/08/19 Give n influenza virus vaccine, inactivated 02/08/18 Give n influenza virus vaccine, inactivated 02/25/16 Give n influenza virus vaccine, inactivated 03/19/15 Give n influenza virus vaccine, inactivated 02/18/14 Give n influenza virus vaccine, inactivated 03/26/13 Give n influenza virus vaccine, inactivated 3 02/20/12 Gi preciuos influenza virus vaccine, inactivated 04/23/08 Give n [...] 17:04:00 EDT, Aerosol, Route to Pharmacy Electronically, [id number]... Start Date: 08/03/20 Status: Ordered Ativan 0.5 mg oral tablet 1 tablet = 0.5 mg, By Mouth, Once, call center dispatcher to procedure. May repeat X 1, # 2 tablet, 0 Refills, Soft Stop, 04/24/20 11:56:00 EST, Tablet, [facility]/pharmacy #2771, Partial fill upon patient request if the [...] 11 Refills, Maintenance, 02/18/20 9:43:00 EDT, Tablet, [facility]/pharmacy #0957, 1 tablet By Mouth 2 times [...] 56 tablet, 3 Refills, Acute, [facility], 154.9, cm, 06/11/20 9:48:00 EST, Height, 58, kg, 06/05/20 12:02:00 EST, Dry Weight Start Date: 08/03/20 Status: Ordered clonazePAM 1 mg oral tablet 1 tablet = 1 mg, By Mouth, 3 times a day, Please fax to [facility] on [facility] [address] [phone], # 90 tablet, 2 Refills, Maintenance, 09/17/18 12:46:43 EDT, Tablet Start Date: 09/17/18 Status: Ordered CPAP Equipment See Instructions, # 1 units, Refills 12, Tot. 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 Start Date: 06/30/17 Status: Ordered CPAP Equipment See Instructions, # 1 each, Refills 12, Tot. Refills 12, Maintenance, BiPAP supplies: Mask, tubing,filters, headgear, chin strap, heated water chamber Dx: ELSA G47.33 Length of need 99 months Please fax to [facility] fax # [phone], 07/02/20 14:50:0... Start Date: 07/02/20 Status: Ordered Eucerin Unscented topical lotion See [...] 11 Refills, Soft Stop, 02/18/20 9:42:00 EDT, [facility], 154.9, cm, 12/30/19 11:15:00 EDT, Height, 55.3, kg, 04/19/19 8:36:00 EST, Dry Weight Start Date: 02/18/20 Status: Ordered Inderal LA 80 mg oral capsule, extended release 80 mg, 1, capsule, By Mouth, Daily, # 30 capsule, Refills 3, Tot. Refills 3, Maintenance, 06/23/20 10:00:00 EST, Route to Pharmacy Electronically, [facility]/pharmacy #0957, To replace Topamax. Partial fillupon patient request if the prescription is for a... Start Date: 06/23/20 Status: Ordered lisinopril 10 mg oral tablet 10 mg, 1, tablet, By Mouth, Daily, # 30 tablet, Refills 11, Tot. Refills 11, Maintenance, 02/18/20 9:43:00 EDT, Route to Pharmacy Electronically, [facility]/pharmacy #0957, 154.9, cm, 12/30/19 11:15:00 EDT,Height, 55.3, [...] Height Start Date: 04/12/19 Status: Ordered oxyCODONE 5 mg oral tablet # 45 tablet, Refills 0, Tot. Refills 0, Maintenance, 08/18/20 10:24:00 EDT, Partial fill upon patient request if the prescription is for a schedule II opioid drug. Start Date: 08/18/20 Status: Ordered oxyCODONE 5 mg oral tablet # 90 tablet, Refills 0, Tot. Refills 0, Maintenance, 08/18/20 10:24:00 EDT, Partial fill upon patient request if the prescription is for a schedule II opioid drug. Start Date: 08/18/20 Status: Ordered ProAir HFA 90 mcg/inh inhalation aerosol with adapter 2, puffs, Inhalation, 4 times a day, PRN, # 1 each, Refills 11, Tot. Refills 11, Maintenance, 04/20/20 13:51:00 EST, Route to Pharmacy Electronically, [id number], [facility]/pharmacy #0957, 154.9, cm, 12/30/19 11:15:00 EDT, Height,... Start Date: 04/20/20 Stop Date: 04/15/21 Status: Ordered Stiolto Respimat 60 ACT 2.5 mcg-2.5 mcg/inh inhalation aerosol 2 puffs, Inhalation, Every 24 hours, to replace tiotropium, # 4 Gm, 11 Refills, Maintenance, 02/18/20 9:43:00 EDT, Aerosol, [facility]/pharmacy #0957, 154.9, cm, 12/30/19 11:15:00 EDT, Height, [...] tablet, 11 Refills, Maintenance, 04/20/20 13:59:00 EST, [facility]/pharmacy #0957, 154.9, cm, 12/30/19 11:15:00 EDT, Height, 55.3, kg, 04/19/19 8:36:00 EST, Dry... 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
--- OUTSIDE RECORDS SUMMARY | 2022-12-26 10:31 | XMS_ITS | Continuity of Care Document ---
Author Name Unknown Organization [facility] Address [address] [place] [address]- Care Team Providers Care Meat Grader Name Role Phone Mavis Allen Primary Care Physician [facility]counter [facility] Date(s): 05/24/22 - 06/23/[address] [address]- Allergies, Adverse Reactions, Alerts Substance Reaction Severity Status Zoloft O/E - Parkinsonian tremor Ac tive Rubber Active Other Environmental Allergy 1 Active 1ELASTIC Immunizations Given and Recorded Vaccine Date Status Refusal Reason [id number] 12y+ bivalent booster vax 05/11/22 Recorded influenza [...] vaccine, inactivated 04/23/08 Give n SARS-CoV-2 mRNA ([id number]-[id number]) vax 12/14/21 Given SARS-CoV-2 mRNA (cjpxdmk-ohyx-hfqto) vax 09/14/21 Given SARS-CoV-2 (COVID-19) mRNA BNT-162b2 [...] Refills, Maintenance, 05/26/22 19:48:00 EST, [facility], 154.8, cm, 05/25/22 13:21:00 EST, Height, 56, kg, 12/09/20 9:16:00 EDT, Dry Weight Start Date: 05/26/22 Status: Ordered BiPAP Machine See Instructions, # 1 units, Maintenance, BiPAP 12/6 with a backup rate of 12 with a heated humidifier. 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), 09/04/18 15:13:48 EDT Start Date: 09/04/18 Status: Ordered calcium-vitamin D 600 mg-400 intl units oral tablet 1 tablet, By Mouth, 2 times a day with meals, # 180 tablet, 1 Refills, [facility], 90, TAKE 1 TABLET BY MOUTH TWICE A DAY WITH FOOD, 154.8, cm, 09/14/21 9:50:00 EDT, Height, 56, kg, 12/09/20 9:16:00 EDT, Dry Weight Start Date: 11/25/21 Status: Ordered Cane See Instructions, # 1 units, Maintenance, as directed for back pain, 09/04/18 15:08:30 EDT Start Date: 09/04/18 Status: Ordered clonazePAM 0.125 mg oral tablet, disintegrating See Instructions, 1 tablet By Mouth Daily at bedtime. Please take: Morning dose: take 1 tablet (0.125 mg) every morning for next 2 weeks. Then, take 1 tablet (0.125 mg) every morning every other day for 2 weeks, then stop morning dose of medic... Start Date: 06/08/22 Status: Ordered clonazePAM 0.25 mg oral tablet, disintegrating See Instructions, 1 tablet By Mouth 2 times a day as needed. [place] Pat Reviewed., # 40 tablet, 0 Refills, Maintenance, 05/12/22 8:22:00 EST, [facility]/pharmacy #0957, Partial fill upon patient request if the prescription is for a schedule II opioid drug., 1... Start Date: 05/12/22 Status: Ordered CPAP Equipment See Instructions, # 1 units, Refills 12, Tot. 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 Start Date: 06/30/17 Status: Ordered CPAP Equipment See Instructions, # 1 each, Refills 12, Tot. Refills 12, Maintenance, BiPAP supplies: Mask, tubing,filters, headgear, chin strap, heated water chamber Dx: ELSA G47.33 Length of need 99 months Please fax to [facility] fax # [phone], 07/02/20 14:50:0... Start Date: 07/02/20 Status: Ordered [...] EACH USE., # 12 each, 11 Refills, [facility], 154.8, cm, 09/14/21 9:50:00 EDT, Height, 56, kg, 12/09/20 9:16:00 EDT, Dry Weight Start Date: 11/17/21 Status: Ordered fluticasone 50 mcg/inh nasal spray See Instructions, USE 1 SPRAY IN EACH NOSTRIL DAILY, # 48 mL, 11 Refills, [facility], 90, USE 1 SPRAY IN EACH NOSTRIL DAILY, 154.8, cm, 09/14/21 9:50:00 EDT, Height, 56, kg, 12/09/20 9:16:00 EDT, Dry Weight Start Date: 11/15/21 Status: Ordered lisinopril 10 mg oral tablet 1, tablet, By Mouth, Daily, # 90 tablet, Refills 3, Route to Pharmacy Electronically, [facility], 154.8, cm, 09/14/21 9:50:00 EDT, Height, 56, kg, 12/09/20 9:16:00 EDT, Dry Weight Start Date: 12/07/21 Status: Ordered melatonin 3 mg oral tablet 2 tablet = 6 mg, By Mouth, Daily at bedtime, PRN Insomnia, # 60 tablet, 2 Refills, Maintenance, 04/13/22 16:50:00 EST, [facility], Partial fill upon patient request if the prescription is fora schedule II opioid drug., 154.8, cm, 01/25/22 14:... Start Date: 04/13/22 Status: Ordered Methadone 0 Refills, Maintenance, 06/22/22 13:11:00 EST, Partial fill upon patient request if the prescription is for a schedule II opioid drug. Start Date: 06/22/22 Status: Ordered nicotine 2 mg oral transmucosal lozenge 1 lozenge = 2 mg, By Mouth, Every 2 hours, # 72 each, 11 Refills, Maintenance, 10/13/20 8:35:00 EDT, [facility]/pharmacy #0957, Partial fill upon patient request if the prescription is for a schedule II opioid drug., 1 lozenge By Mouth Every 2 hours, 154.9,... Start Date: 10/13/20 Status: Ordered Nutritional Supplements See Instructions, # 90 each, Refills 3, Tot. Refills 3, Maintenance, [place] Ensure 1 can TID. Dx: C34.90, R63.4, 03/29/21 15:29:00 EST, Supply Start Date: 03/29/21 Status: Ordered omeprazole 20 mg oral enteric coated capsule 1 capsule = 20 mg, By Mouth, Daily, # 90 capsule, 3 Refills, Maintenance, 07/08/21 15:23:00 EST, ECCapsule, [facility]/pharmacy #0957, Partial fill upon patient request if the prescription is for a schedule II opioid drug., 154.8, cm, 06/29/21 9:00:00 EST,... Start Date: 07/08/21 Status: Ordered Stiolto Respimat 60 ACT 2.5 mcg-2.5 mcg/inh inhalation aerosol 0 Refills, Maintenance, 06/22/22 8:29:00 EST, Partial fill upon patient request if the prescriptionis for a schedule II opioid drug. Start Date: 06/22/22 Status: Ordered Ventolin HFA 108 mcg/inh inhalation aerosol with adapter 2 puffs, Inhalation, 4 times a day, PRN NEEDED FOR WHEEZING, # 18 each, 5 Refills, [facility], 154.8, cm, 09/14/21 9:50:00 EDT, Height, 56, [...] Clubbing Confirmed Active Drug abuse: Suboxone via [facility] Confirmed Active Esophageal reflux (GERD) Confirmed 05/09/12 Active JASON (generalized anxiety disorder) Confirmed Active HPV: Positive in 07/15; 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, negative in 10/16 Confirmed Active Hypertension Confirmed 08/23/10 Active Lung cancer Confirmed Active Lung nodules Confirmed Active Opioid use disorder Confirmed Active Osteoporosis Confirmed Active Pain in finger of right hand Confirmed Active Palpitations Confirmed Active *[id number] paige Escamilla Confirmed Active Pelvic mass Confirmed [...] Care Team Personnel Name: Mavis Allen Position: [facility] PCO Associate Professional Member Role: PCP Address: Address: [address] [place] [address]. [address] [place] [address]- [place] Care Team Related Persons Name: JOSELIN SCHMIDT Address: [address] [place] [address] Name: ALYSE HAUSER Address: home [address] [place] [address] Name: NO, ONE AT THIS TIME
--- OUTSIDE RECORDS SUMMARY | 2022-12-26 10:31 | XMS_ITS | Continuity of Care Document ---
Author Name Unknown Organization [facility] Address [address] [place] [address]- Care Team Providers Care Prison Guard Supervisor Name Role Phone Mavis Allen Primary Care Physician [facility] Date[facility]): 05/24/22 - 06/23/[address] [address]- Allergies, Adverse Reactions, Alerts Substance Reaction Severity Status Zoloft O/E - Parkinsonian tremor Ac tive Rubber Active Other Environmental Allergy 1 Active 1ELASTIC Immunizations Given and Recorded Vaccine Date Status Refusal Reason [id number] 12y+ bivalent booster vax 05/11/22 Recorded influenza [...] vaccine, inactivated 04/23/08 Give n SARS-CoV-2 mRNA (ymudrxj-yfer-iwebs) vax 12/14/21 Given SARS-CoV-2 mRNA (rkkmaca-kyot-ifefg) vax 09/14/21 Given SARS-CoV-2 (COVID-19) mRNA BNT-162b2 [...] Refills, Maintenance, 05/26/22 19:48:00 EST, [facility], 154.8, cm, 05/25/22 13:21:00 EST, Height, 56, [...] with meals, # 180 tablet, 1 Refills, [facility] 96987, 90, TAKE 1 TABLET BY MOUTH TWICE [...] tablet, 0 Refills, Maintenance, 05/12/22 8:22:00 EST, [facility]/pharmacy #0957, Partial fill upon patient request if the prescription is for a schedule II opioid drug., 1... Start Date: 05/12/22 Status: Ordered CPAP Equipment See Instructions, # 1 units, Refills 12, Tot. 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 Start Date: 06/30/17 Status: Ordered CPAP Equipment See Instructions, # 1 each, Refills 12, Tot. Refills 12, Maintenance, BiPAP supplies: Mask, tubing,filters, headgear, chin strap, heated water chamber Dx: ELSA G47.33 Length of need 99 months Please fax to [facility] fax # [phone], 07/02/20 14:50:0... Start Date: 07/02/20 Status: Ordered [...] EACH USE., # 12 each, 11 Refills, [facility] 40421, 154.8, cm, 09/14/21 9:50:00 EDT, Height, 56, kg, 12/09/20 9:16:00 EDT, Dry Weight Start Date: 11/17/21 Status: Ordered fluticasone 50 mcg/inh nasal spray See Instructions, USE 1 SPRAY IN EACH NOSTRIL DAILY, # 48 mL, 11 Refills, [facility] 96586, 90, USE 1 SPRAY IN EACH NOSTRIL DAILY, 154.8, cm, 09/14/21 9:50:00 EDT, Height, 56, kg, 12/09/20 9:16:00 EDT, Dry Weight Start Date: 11/15/21 Status: Ordered lisinopril 10 mg oral tablet 1, tablet, By Mouth, Daily, # 90 tablet, Refills 3, Route to Pharmacy Electronically, [facility] 04900, 154.8, cm, 09/14/21 9:50:00 EDT, Height, 56, [...] Refills, Maintenance, 10/13/20 8:35:00 EDT, [facility]/pharmacy #0957, Partial fill upon patient request if the prescription is for a schedule II opioid drug., 1 lozenge By Mouth Every 2 hours, 154.9,... Start Date: 10/13/20 Status: Ordered Nutritional Supplements See Instructions, # 90 each, Refills 3, Tot. Refills 3, Maintenance, [place] Ensure 1 can TID. Dx: C34.90, R63.4, 03/29/21 15:29:00 EST, Supply Start Date: 03/29/21 Status: Ordered omeprazole 20 mg oral enteric coated capsule 1 capsule = 20 mg, By Mouth, Daily, # 90 capsule, 3 Refills, Maintenance, 07/08/21 15:23:00 EST, ECCapsule, [facility]/pharmacy #0957, Partial fill upon patient [...] # 18 each, 5 Refills, [facility], 154.8, cm, 09/14/21 9:50:00 EDT, Height, 56, [...] Clubbing Confirmed Active Drug abuse: Suboxone via [facility] Confirmed Active Esophageal reflux (GERD) Confirmed 05/09/12 Active JASON (generalized anxiety disorder) Confirmed Active HPV: Positive in 07/15; 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, negative in 10/16 Confirmed Active Hypertension Confirmed 08/23/10 Active Lung cancer Confirmed Active Lung nodules Confirmed Active Opioid use disorder Confirmed Active Osteoporosis Confirmed Active Pain in finger of right hand Confirmed Active Palpitations Confirmed Active *[id number] paige Escamilla Confirmed Active Pelvic mass Confirmed [...] Care Team Personnel Name: Mavis Allen Position: [facility] Associate Professional Member Role: PCP Address: Address: [address] [place] [address]. [address] [place] [address]- [place] Care Team Related Persons Name: JOSELIN SCHMIDT Address: home [address] [place] [address] Name: ALYSE HAUSER Address: home [address] [place] [address] Name: NO, ONE AT THIS TIME
--- OUTSIDE RECORDS SUMMARY | 2022-12-26 10:31 | XMS_ITS | Continuity of Care Document ---
Author Name Unknown Organization [facility] Address [address] [place] [address]- Care Team Providers Care Hybrid Technologist Name Role Phone Divina MARINELLI, Adalberto Reeder Primary Care Physician [facility]counter [facility] Date[facility]s): 10/26/20 - 11/25/[address] [address]- Allergies, Adverse Reactions, Alerts Substance Reaction Severity [...] cm, 06/09... Start Date: 08/12/19 Status: Ordered albuterol CFC free 90 mcg/inh inhalation aerosol 1, puffs, Inhalation, 4 times a day, PRN, please substitute whichever albuterol product is covered by patient's insurance, # 18 Gm, Refills 11, Tot. Refills 11, Maintenance, 08/03/20 17:04:00 EDT, Aerosol, Route to Pharmacy Electronically, [id number]... Start Date: 08/03/20 Status: Ordered BiPAP Machine [...] 56 tablet, 3 Refills, Acute, [facility], 154.9, cm, 06/11/20 9:48:00 EST, Height, 58, kg, 06/05/20 12:02:00 EST, Dry Weight Start Date: 08/03/20 Status: Ordered clonazePAM 1 mg oral tablet 1 tablet = 1 mg, By Mouth, 3 times a day, PRN Anxiety, Please dispense on/after 11/06/20, # 80 tablet, 0 Refills, Maintenance, 10/13/20 8:26:00 EDT, Tablet, [facility]/pharmacy #0957, 154.9, cm, 10/13/20 7:56:00 EDT, Height, 58, kg, 06/05/20 12:02:00 EST, Dry... Start Date: 10/13/20 Status: Ordered CPAP Equipment See Instructions, # 1 units, Refills 12, Tot. 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 Start Date: 06/30/17 Status: Ordered CPAP Equipment See Instructions, # 1 each, Refills 12, Tot. Refills 12, Maintenance, BiPAP supplies: Mask, tubing,filters, headgear, chin strap, heated water chamber Dx: ELSA G47.33 Length of need 99 months Please fax to [facility] fax # [phone], 07/02/20 14:50:0... Start Date: 07/02/20 Status: Ordered Eucerin Unscented topical lotion See Instructions, apply to skin daily, dispense 1 jar, # 1 each, 11 Refills, Maintenance, 09/25/19 16:37:00 EDT, [facility]/pharmacy #0957, apply to skin daily, dispense [...] Gm, 11 Refills, Maintenance, 11/05/20 17:11:00 EDT, [facility]/pharmacy #0957, 1 sprays Nasal Daily, 154.9, cm, 10/13/20 7:56:00 EDT, Height, 58, kg, 06/05/20 12:02:00 EST, Dry Weight Start Date: 11/05/20 Status: Ordered Flovent HFA 220 mcg/inh inhalation aerosol See Instructions, TAKE 2 PUFFS BY MOUTH TWICE A DAY RINSE MOUTH AND THROAT AFTER EACH USE, # 12 Unknown, 11 Refills, Soft Stop, 11/05/20 17:11:00 EDT, [facility]/pharmacy #0957, 154.9, cm, 10/13/20 7:56:00 EDT, [...] Date: 09/28/20 Stop Date: 09/23/21 Status: Ordered nicotine 2 mg oral transmucosal [...] EST, Height Start Date: 04/12/19 Status: Ordered Stiolto Respimat 60 ACT 2.5 mcg-2.5 mcg/inh inhalation aerosol 2 puffs, Inhalation, Every 24 hours, to replace tiotropium, # 4 Gm, 11 Refills, Maintenance, 11/05/20 17:11:00 EDT, Aerosol, [facility]/pharmacy #0957, 154.9, cm, 10/13/20 7:56:00 EDT, Height, 58, kg, 06/05/20 12:02:00 EST, Dry Weight Start Date: 11/05/20 Status: Ordered Suboxone 8 mg-2 mg sublingual tablet, disintegrating 2 tablet, Sublingual, Daily, 0 Refills, Maintenance, Tablet Start Date: 02/20/12 Status: Ordered Ventolin HFA 108 mcg/inh inhalation aerosol with adapter 2 puffs, Inhalation, 4 times a day, PRN for wheezing, # 18 Gm, 11 Refills, Maintenance, 11/12/20 9:46:00 EDT, Aerosol, [facility]/pharmacy #0957, Partial fill upon patient request if the prescription is fora schedule II opioid drug. Please substitute brand... Start Date: 11/12/20 Status: Ordered Vitamin B2 100 mg oral tablet 2 tablet = 200 mg, By Mouth, 2 times a day, Please dispense brand name with lowest co-pay, # 100 tablet, 11 Refills, Maintenance, 11/05/20 17:11:00 EDT, [facility], 154.9, cm, 10/13/20 7:56:00 EDT, Height, 58, kg, 06/05/20 12:02:00 EST, Dry We... Start Date: 11/05/20 Status: Ordered Problem List Condition Effective Dates Status Health Status Inform ant Age at leaving school - ged(Confirmed) Active ASCUS(Confirmed) Active 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 Sleep Report(Confirmed) 05/25/11 Active Hep C: Cleared without treatment(Confirmed) Active Clubbing(Confirmed) Active Drug abuse: Suboxone via [facility](Confirmed) Active Esophageal reflux (GERD)(Confirmed) 05/09/12 Active JASON (generalized anxiety disorder)(Confirmed) Active HPV: Positive in 07/15; neg i n 01/15, negative in 10/16(Confirmed) Active Hypertension(Confirmed) 08/23/10 Active Lung nodules(Confirmed) Active Opioid use disorder(Confirmed) Active Emphysema of lung: mixed emphysema/UIP(Confirmed) Active [...]
--- OUTSIDE RECORDS SUMMARY | 2022-12-26 10:32 | XMS_ITS | Continuity of Care Document ---
Author Name Unknown Organization [facility] Address [address] [place] [address]- Care Team Providers Care District Adviser Name Role Phone Gideon Nice INFORMATION TECHNOLOGY INTERN, Jennyfer Primary Care Physician [facility] Date[facility]s): 01/26/22 - 02/25/[address] [address]- Allergies, Adverse Reactions, Alerts Substance Reaction Severity Status Zoloft O/E - Parkinsonian tremor Ac tive Rubber Active Other Environmental Allergy 1 Active 1ELASTIC Immunizations Given and Recorded Vaccine Date Status Refusal Reason SARS-CoV-2 mRNA (sthyiha-wvtw-iocss) vax 12/14/21 Given SARS-CoV-2 mRNA (jtuwhir-ppxb-ajqpc) vax 09/14/21 Given SARS-CoV-2 (COVID-19) mRNA BNT-162b2 [...] tablet, 3 Refills, Maintenance, 09/14/21 10:11:00 EDT,Tablet, [facility]/pharmacy #0955, Partial fill upon patient request if the [...] with meals, # 180 tablet, 1 Refills, [facility] ST[facility] 31899, 90, TAKE 1 TABLET BY MOUTH TWICE [...] PhysicianStop 04/15/22 8:28:00 EST, 12/14/21 8:27:00 EDT, [facility]/pharmacy #0957, 154.8, cm, 09/14/21 9:50:00 EDT, Height, 56, kg, 12/09/20 9:16:00 EDT, Dry Weight Start Date: 12/14/21 Stop Date: 04/15/22 Status: Ordered clonazePAM 0.25 mg oral tablet, disintegrating See Instructions, 1 tablet By Mouth 2 times a day as needed. Mass Pat Reviewed. Please fill on/after 01/24/22, # 40 tablet, 2 Refills, Maintenance, 01/24/22 16:19:00 EDT, [facility]/pharmacy #0957, Partial fill upon patient request if the prescription is for... Start Date: 01/24/22 Status: Ordered CPAP Equipment See Instructions, # 1 units, Refills 12, Tot. 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 Start Date: 06/30/17 Status: Ordered CPAP Equipment See Instructions, # 1 each, Refills 12, Tot. Refills 12, Maintenance, BiPAP supplies: Mask, tubing,filters, headgear, chin strap, heated water chamber Dx: ELSA G47.33 Length of need 99 months Please fax to [facility] fax # [phone], 07/02/20 14:50:0... Start Date: 07/02/20 Status: Ordered cyanocobalamin 500 mcg oral tablet 1 tablet = 500 mcg, By Mouth, Daily, on empty stomach, # 90 tablet, 3 Refills, Maintenance, 03/26/21 20:06:00 EST, Tablet, [facility]/pharmacy #0957, Partial fill upon patient request if the prescription isfor a schedule II opioid drug., 154.8, cm, 03/23/21... Start Date: 03/26/21 Status: Ordered Eucerin Unscented topical lotion See Instructions, apply to skin daily, dispense 1 jar, # 1 each, 11 Refills, Maintenance, 09/25/19 16:37:00 EDT, [facility]/pharmacy #0957, apply to skin daily, dispense 1 [...] EACH USE., # 12 each, 11 Refills, [facility] STORE 88209, 154.8, cm, 09/14/21 9:50:00 EDT, Height, 56, kg, 12/09/20 9:16:00 EDT, Dry Weight Start Date: 11/17/21 Status: Ordered fluticasone 50 mcg/inh nasal spray See Instructions, USE 1 SPRAY IN EACH NOSTRIL DAILY, # 48 mL, 11 Refills, [facility] 87891, 90, USE 1 SPRAY IN EACH NOSTRIL DAILY, 154.8, cm, 09/14/21 9:50:00 EDT, Height, 56, kg, 12/09/20 9:16:00 EDT, Dry Weight Start Date: 11/15/21 Status: Ordered Inderal LA 80 mg oral capsule, extended release 80 mg, 1, capsule, By Mouth, Daily, # 30 capsule, Refills 3, Tot. Refills 3, Maintenance, 06/23/20 10:00:00 EST, Route to Pharmacy Electronically, [facility]/pharmacy #0957, To replace Topamax. Partial fillupon patient request if the prescription is for a... Start Date: 06/23/20 Status: Ordered lisinopril 10 mg oral tablet 1, tablet, By Mouth, Daily, # 90 tablet, Refills 3, Route to Pharmacy Electronically, [facility] 21742, 154.8, cm, 09/14/21 9:50:00 EDT, Height, 56, kg, 12/09/20 9:16:00 EDT, Dry Weight Start Date: 12/07/21 Status: Ordered melatonin 3 mg oral tablet 1 tablet = 3 mg, By Mouth, Daily at bedtime, PRN Insomnia, # 60 tablet, 11 Refills, Maintenance, 01/24/22 16:19:00 EDT, [facility]/pharmacy #0957, Partial fill upon patient request if the prescription is for a schedule II opioid drug., 154.8, cm, 09/14/21 9:... Start Date: 01/24/22 Status: Ordered nicotine 2 mg oral transmucosal lozenge 1 lozenge = 2 mg, By Mouth, Every 2 hours, # 72 each, 11 Refills, Maintenance, 10/13/20 8:35:00 EDT, [facility]/pharmacy #0957, Partial fill upon patient request if [...] each, Refills 3, Tot. Refills 3, Maintenance, [place] Ensure 1 can TID. Dx: C34.90, R63.4, 03/29/21 15:29:00 EST, Supply Start Date: 03/29/21 Status: Ordered omeprazole 20 mg oral enteric coated capsule 1 capsule = 20 mg, By Mouth, Daily, # 90 capsule, 3 Refills, Maintenance, 07/08/21 15:23:00 EST, ECCapsule, [facility]/pharmacy #0957, Partial fill upon patient request if the prescription is for a schedule II opioid drug., 154.8, cm, 06/29/21 9:00:00 EST,... Start Date: 07/08/21 Status: Ordered Stiolto Respimat 60 ACT 2.5 mcg-2.5 mcg/inh inhalation aerosol 2 puffs, Inhalation, Every 24 hours, TO REPLACE TIOTROPIUM., # 4 mL, 11 Refills, [facility]ORE 27943, 154.8, cm, 09/14/21 9:50:00 EDT, Height, 56, kg, 12/09/20 9:16:00 EDT, Dry Weight Start Date: 11/17/21 Status: Ordered Ventolin HFA 108 mcg/inh inhalation aerosol with adapter 2 puffs, Inhalation, 4 times a day, PRN NEEDED FOR WHEEZING, # 18 each, 5 Refills, [facility]ORE 05813, 154.8, cm, 09/14/21 9:50:00 EDT, Height, 56, [...] Clubbing Confirmed Active Drug abuse: Suboxone via [facility] Confirmed Active Esophageal reflux (GERD) Confirmed 05/09/12 Active JASON (generalized anxiety disorder) Confirmed Active HPV: Positive in 07/15; 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, negative in 10/16 Confirmed Active Hypertension Confirmed 4/18/11 Active Lung cancer Confirmed Active Lung nodules Confirmed Active Opioid use disorder Confirmed Active Osteoporosis Confirmed Active Pain in finger of right hand Confirmed Active *[id number] paige Escamilla Confirmed Active Pelvic mass Confirmed [...] Patient Care team information Personnel Name: Jennyfer Stokes NP Address: Address: [address] [place] [address]
--- OUTSIDE RECORDS SUMMARY | 2022-12-26 10:32 | XMS_ITS | Continuity of Care Document ---
Author Name Unknown Organization [facility] Address [address] [place] [address]- Care Team Providers Care Manager Of Financial Planning Name Role Phone Divina MARINELLI, Adalberto Reeder Primary Care Physician [facility] Date[facility]): 04/09/21 - 05/09/[address] [address]- Allergies, Adverse Reactions, Alerts Substance Reaction Severity [...] 17:04:00 EDT, Aerosol, Route to Pharmacy Electronically, [id number]... Start Date: 08/03/20 Status: Ordered BiPAP Machine [...] 11 Refills, Maintenance, 11/05/20 17:11:00 EDT, Tablet, [facility]/pharmacy #0957, 1 tablet By Mouth 2 [...] 56 tablet, 3 Refills, Acute, [facility], 154.9, cm, 06/11/20 9:48:00 EST, Height, 58, kg, 06/05/20 12:02:00 EST, Dry Weight Start Date: 08/03/20 Status: Ordered clonazePAM 1 mg oral tablet 1 tablet = 1 mg, By Mouth, 2 times a day, PRN Anxiety, Please dispense on/after 05/08/21, # 60 tablet, 0 Refills, Maintenance, 04/20/21 13:33:00 EST, Tablet, [facility]/pharmacy #0957, 154.8, cm, 04/20/21 13:17:00 EST, Height, 56, kg, 12/09/20 9:16:00 EDT, Dry... Start Date: 04/20/21 Status: Ordered CPAP Equipment See Instructions, # 1 units, Refills 12, Tot. Refills 12, Maintenance, BIPAP supplies: Mask, tubing, filters, headgear, chin strap, water chamber 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) Lengthof need 99 months Please fax to [facility], [phone],... Start Date: 06/30/17 Status: Ordered CPAP Equipment See Instructions, # 1 each, Refills 12, Tot. Refills 12, Maintenance, BiPAP supplies: Mask, tubing,filters, headgear, chin strap, heated water chamber Dx: ELSA G47.33 Length of need 99 months Please fax to [facility] # [phone], 07/02/20 14:50:0... Start Date: 07/02/20 Status: Ordered [...] 06/23/20 10:00:00 EST, Route to Pharmacy Electronically, [facility]/pharmacy #0957, To replace Topamax. Partial fillupon patient request if the prescription is for a... Start Date: 06/23/20 Status: Ordered lisinopril 10 mg oral tablet 10 mg, 1, tablet, By Mouth, Daily, # 90 tablet, Refills 3, Tot. Refills 3, Maintenance, 09/28/20 13:15:00 EDT, Route to Pharmacy Electronically, [facility]/pharmacy #0957, 154.9, cm, 09/22/20 10:26:00 EDT, Height, 58, kg, 06/05/20 12:02:00 EST, Dry Weight Start Date: 09/28/20 Stop Date: 09/23/21 Status: Ordered melatonin 3 mg oral tablet 1 tablet = 3 mg, By Mouth, Daily at bedtime, PRN Insomnia, # 60 tablet, 11 Refills, Maintenance, 03/29/21 21:06:00 EST, [facility]/pharmacy #0957, Partial fill upon [...] each, Refills 3, Tot. Refills 3, Maintenance, [place] Ensure 1 can TID. Dx: C34.90, R63.4, [...] Active Clubbing(Confirmed) Active Drug abuse: Suboxone via [facility](Confirmed) Active Esophageal reflux [...]
--- OUTSIDE RECORDS SUMMARY | 2022-12-26 10:32 | XMS_ITS | Continuity of Care Document ---
Author Name Unknown Organization [facility] Address [address] [place] [address]- Care Team Providers Care Registered Nurse Hh Case Manager Name Role Phone Divina MARINELLI, Adalberto Reeder Primary Care Physician [facility] Date[facility]s): 04/29/20 - 05/29/[address] [address]- Allergies, Adverse Reactions, Alerts Substance Reaction Severity [...] 1 Refills, Maintenance, 07/31/19 11:08:00 EDT, Tablet, [facility]/pharmacy #0957, 154.9, cm, 07/04/19 9:38:00 EST, Height, [...] tablet = 0.5 mg, By Mouth, Once, manager call to procedure. May repeat X 1, # 2 tablet, 0 Refills, Soft Stop, 04/24/20 11:56:00 EST, Tablet, [facility]/pharmacy #0957, Partial fill upon patient request if [...] 11 Refills, Maintenance, 02/18/20 9:43:00 EDT, Tablet, [facility]/pharmacy #0957, 1 tablet By Mouth 2 times [...] 02/18/20 9:42:00 EDT, Route to Pharmacy Electronically, [facility]/pharmacy #0957, 154.9, cm, 12/30/19 11:15:00 EDT, Height, 55.3, kg, 04/19/19 8:36:00 EST, Dry Weight Start Date: 02/18/20 Status: Ordered cetirizine 10 mg oral tablet 1 tablet = 10 mg, By Mouth, Daily, PRN Other, PRN allergies, # 30 tablet, 11 Refills, Maintenance, 02/18/20 9:43:00 EDT, Tablet, [facility]/pharmacy #0957, 154.9, cm, 12/30/19 11:15:00 EDT, Height, 55.3, kg, 04/19/19 8:36:00 EST, Dry Weight Start Date: 02/18/20 Status: Ordered chantix 1mg tablet 1 tablet = 1 mg, By Mouth, 2 times a day, after meals, to begin after completing starter pack, # 1 pack/packet, 3 Refills, Maintenance, 02/18/20 9:41:00 EDT, Tablet, [facility]/pharmacy #0957, 154.9, cm, 12/30/19 11:15:00 EDT, Height, 55.3, kg, 04/19/19 8:36... Start Date: 02/18/20 Status: Ordered clonazePAM 1 mg oral tablet 1 tablet = 1 mg, By Mouth, 3 times a day, Please fax to [facility] [address] [phone], # 90 tablet, 2 Refills, Maintenance, 09/17/18 12:46:43 EDT, Tablet Start Date: 09/17/18 Status: Ordered CPAP Equipment See Instructions, # 1 units, Refills 12, Tot. Refills 12, Maintenance, BiPAP supplies: Mask, tubing, filters, headgear, chin strap, heated water chamber Dx: ELSA G47.33 Length of need 99 months Pleasefax to [facility], [phone], 09/04/18 15:13:48 EDT, Co... Start Date: 09/04/18 Status: Ordered CPAP Equipment See Instructions, # 1 units, Refills 12, Tot. Refills 12, Maintenance, BIPAP supplies: Mask, tubing, filters, headgear, chin strap, water chamber 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) Lengthof need 99 months Please fax to [facility], [phone],... Start Date: 06/30/17 Status: Ordered [facility] DIPHENHYDRAMINE 25 MG TAB [facility] DIPHENHYDRAMINE 25 MG TAB, 1, tablet, By [...] 6 Refills, Maintenance, 04/29/20 17:54:00 EST, Tablet, [facility]/pharmacy #0957, 154.9, cm, 12/30/19 11:15:00 EDT, Height, 55.3, kg, 04/19/19 8:36:00 EST, Dry Weight Start Date: 04/29/20 Status: Ordered Eucerin Unscented topical lotion See Instructions, apply to skin daily, dispense 1 jar, # 1 each, 11 Refills, Maintenance, 09/25/19 16:37:00 EDT, [facility]/pharmacy #0957, apply to skin daily, dispense 1 [...] Gm, 11 Refills, Maintenance, 02/18/20 9:43:00 EDT, [facility]/pharmacy #0957,1 sprays Nasal Daily, 154.9, cm, 12/30/19 11:15:00 EDT, Height, 55.3, kg, 04/19/19 8:36:00 EST, DryWeight Start Date: 02/18/20 Status: Ordered Flovent HFA 220 mcg/inh inhalation aerosol See Instructions, TAKE 2 PUFFS BY MOUTH TWICE A DAY RINSE MOUTH AND THROAT AFTER EACH USE, # 12 Unknown, 11 Refills, Soft Stop, 02/18/20 9:42:00 EDT, [facility]/pharmacy #0957, 154.9, cm, 12/30/19 11:15:00 EDT, Height, 55.3, kg, 04/19/19 8:36:00 EST, Dry Weight Start Date: 02/18/20 Status: Ordered lisinopril 10 mg oral tablet 10 mg, 1, tablet, By Mouth, Daily, # 30 tablet, Refills 11, Tot. Refills 11, Maintenance, 02/18/20 9:43:00 EDT, Route to Pharmacy Electronically, [facility]/pharmacy #0957, 154.9, cm, 12/30/19 11:15:00 EDT,Height, 55.3, [...] Refills, Maintenance, 02/18/20 9:43:00 EDT, EC Capsule, [facility]/pharmacy #0957, 154.9, cm, 12/30/19 11:15:00 EDT, Height, 55.3, kg, 04/19/19 8:36:00 EST, Dry Weight Start Date: 02/18/20 Status: Ordered ProAir HFA 90 mcg/inh inhalation aerosol with adapter 2, puffs, Inhalation, 4 times a day, PRN, # 1 each, Refills 11, Tot. Refills 11, Maintenance, 04/20/20 13:51:00 EST, Route to Pharmacy Electronically, [id number], [facility]/pharmacy #0957, 154.9, cm, 12/30/19 11:15:00 EDT, Height,... Start Date: 04/20/20 Stop Date: 04/15/21 Status: Ordered Stiolto Respimat 60 ACT 2.5 mcg-2.5 mcg/inh inhalation aerosol 2 puffs, Inhalation, Every 24 hours, to replace tiotropium, # 4 Gm, 11 Refills, Maintenance, 02/18/20 9:43:00 EDT, Aerosol, [facility]/pharmacy #0957, 154.9, cm, 12/30/19 11:15:00 EDT, Height, [...] Active Clubbing(Confirmed) Active Drug abuse: Suboxone via [facility](Confirmed) Active Esophageal reflux (GERD)(Confirmed) [...]
--- OUTSIDE RECORDS SUMMARY | 2022-12-26 10:32 | XMS_ITS | Continuity of Care Document ---
Author Name Unknown Organization [facility] Address [address] [place] [address]- Care Team Providers Care Policy Service Coordinator Name Role Phone Mavis Allen Primary Care Physician Encounter [facility] Date(s): 10/26/22 - 11/04/[address] [id number] Discharge Disposition: Disch/Trans to IP Rehab or unit w/in Hos Attending Physician: Jenny Vidal MD Admitting Physician: Berenice Henderson MD Referring Physician: Berenice Henderson MD Allergies, Adverse Reactions, Alerts Substance Reaction Severity Status Zoloft O/E - Parkinsonian tremor Ac tive Rubber Active Other Environmental Allergy 1 Active 1ELASTIC Immunizations Given and Recorded Vaccine Date Status Refusal Reason [id number] 12y+ bivalent booster vax 05/11/22 Recorded influenza [...] vaccine, inactivated 04/23/08 Give n SARS-CoV-2 mRNA (ybfmkwb-[id number]-sxdrj) vax 12/14/21 Given SARS-CoV-2 mRNA (pmxxqkm-gucv-pgrva) vax 09/14/21 Given SARS-CoV-2 (COVID-19) mRNA BNT-162b2 [...] Refills, Maintenance, 05/26/22 19:48:00 EST, [id number], 154.8, cm, 05/25/22 13:21:00 EST, Height, 56, kg, 12/09/20 9:16:00 EDT, Dry Weight Start Date: 05/26/22 Status: Ordered calcium-vitamin D 600 mg-400 intl units oral tablet 1 tablet, By Mouth, 2 times a day with meals, # 180 tablet, 0 Refills, Maintenance, 07/21/22 6:46:00 EDT, [id number], 90, TAKE 1 TABLET BY MOUTH TWICE A DAY WITH FOOD, 154, cm, 06/22/22 15:01:00EST, Height, 56, kg, 12/09/20 9:16:00 EDT, Dry Weight Start Date: 07/21/22 Status: Ordered dexamethasone 2 mg oral tablet See Instructions, 2 tablets by mouth twice daily on 11/04/22 1 tablet by mouth twice daily on 11/05/22and 11/06/22 1 tablet by mouth daily on 11/07/22 and 11/08/22 Then stop, # 10 tablet, 0 Refills, Acute 11/08/22 23:00:00 EDT, 11/03/22 16:02:00 EDT, Parti... Start Date: 11/03/22 Stop Date: 11/08/22 Status: Ordered Flovent HFA 220 mcg/inh inhalation aerosol 2 puffs, Inhalation, 2 times a day, AND THROAT AFTER EACH USE., # 12 each, 11 Refills, [id number], 154.8, cm, 09/14/21 9:50:00 EDT, Height, 56, kg, 12/09/20 9:16:00 EDT, Dry Weight Start Date: 11/17/21 Status: Ordered fluticasone 50 mcg/inh nasal spray See Instructions, USE 1 SPRAY IN EACH NOSTRIL DAILY, # 48 mL, 11 Refills, [facility] STORE [id number], 90, USE 1 SPRAY IN EACH NOSTRIL DAILY, 154.8, cm, 09/14/21 9:50:00 EDT, Height, 56, kg, 12/09/20 9:16:00 EDT, Dry Weight Start Date: 11/15/21 Status: Ordered lisinopril 10 mg oral tablet 1, tablet, By Mouth, Daily, # 90 tablet, Refills 3, Route to Pharmacy Electronically, [id number], 154.8, cm, 09/14/21 9:50:00 EDT, Height, 56, kg, 12/09/20 9:16:00 EDT, Dry Weight Start Date: 12/07/21 Status: Ordered lisinopril 20 mg oral tablet 20 mg, Tablet, By Mouth, 11/04/22 9:00:00 EDT Start Date: 11/04/22 Stop Date: 11/04/22 Status: Completed melatonin 3 mg oral tablet 2 tablet = 6 mg, By Mouth, Daily at bedtime, PRN Insomnia, # 60 tablet, 2 Refills, Maintenance, 08/04/22 12:21:00 EDT, [facility]/pharmacy #[id number], Partial fill upon patient [...] opioid drug. Start Date: 11/03/22 Status: Ordered Methadone Liquid 80 mg, Solution, By Mouth, 11/04/22 7:00:00 EDT Start Date: 11/04/22 Stop Date: 11/04/22 Status: Completed Nicotrol Inhaler 1 inhalation, Inhalation, Every hour, [...] 0 Refills, Maintenance, 08/01/22 14:52:00 EDT, ECCapsule, [facility]/pharmacy #[id number], Partial fill upon patient [...] Refills, Maintenance, 07/21/22 6:46:00 EDT, [id number], 154, cm, 06/22/22 15:01:00 EST, Height, 56, [...] right hand Confirmed Active Palpitations Confirmed Active *[id number] 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 Rob Confirmed Active Pelvic mass Confirmed Active Emphysema of lung: mixed emphysema/UIP Confirmed Active Major depressive disorder, [facility] Confirmed Active Resting tremor Confirmed Active Tobacco abuse Confirmed Active Tubular adenoma of colon 1 Confirmed 04/22/19 Active 1repeat screening colonoscopy in 2023 Results Radiology Reports * Exam Date Time Procedure Performing Provider Status 11/01/22 9:[address] Abd/Pelvis W/ IV Contrast Only Eleuterio Ceballos; Auth (Verified) Notes: (CT Abd/Pelvis W/ IV Contrast Only) Reason For Exam: Mass on Other Study RESULT: CT Abd/Pelvis W/ IV Contrast Only CT Chest W/ Contrast, CT Abd/Pelvis W/ IV Contrast Only INDICATION: lung adenocarcinoma status post lobectomy, with new brain metastasis; Clinical Question(s): Staging Metastatic Tumor TECHNIQUE: Helical CT scan of the chest, abdomen, and pelvis with IV contrast, formatted in 3 planes. 100 cc of Omnipaque 300 was administered intravenously. This study was performed without oral contrast. Weight-based protocol was performed using automatic exposure control. CTDIvol Body: 6.50 mGy, DLP Body: 437 mGy*cm. COMPARISON: Multiple priors, most recent dated 11/15/2021 (PET/CT). CT chest 07/16/2020. MRI pelvis with and without contrast 04/07/2021. 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 Trachea and airways: Patent without evidence of tracheal or endobronchial lesion. Unchanged 2 mm nodule at the right anterolateral wall of the upper trachea (axial image 18), stable from prior. Lungs and pleura: Status post left lower lobectomy. Moderate-severe centrilobular and paraseptal emphysema, predominantly involving the right lower lobe. 12 mm nodule in the right lower lobe within an emphysematous area (axial 52). Linear 6 mm nodule in the posterior inferior left upper lobe (axial 73). Few additional smaller pulmonary nodules are noted on series 205). No effusion or pneumothorax. Mediastinum and génesis: No mass or hematoma. No mediastinal or hilar lymphadenopathy. No esophageal abnormality. Normal thyroid. Heart: Heart is normal in size. No pericardial effusion. Aorta: Mild vascular calcification but no aneurysm. Pulmonary arteries: Normal caliber. No evidence of pulmonary embolism on this study performed without angiographic technique. Chest wall soft tissues: No acute abnormality. Diaphragm: Intact. Liver: Normal in attenuation and morphology. No suspicious lesion. Gallbladder: No CT evidence of gallbladder pathology. Bile ducts: Chronic mild intrahepatic and extrahepatic biliary ductal dilation. The CBD measures upto 11 mm. Spleen: Normal in size. Pancreas: No suspicious lesion or ductal dilatation. Adrenal glands: No nodule. Kidneys and ureters: No hydronephrosis, stone, or suspicious lesion. Areas of cortical scarring in the left kidney. Bladder: No wall thickening or surrounding stranding. Reproductive organs: In the left adnexa, medial to the left external iliac vessels, series 201, image 154, there is persistent nodularity, likely reflecting a left ovarian/paraovarian lesion, better characterized on the prior MRI pelvis dated 04/07/2021. Stomach, small bowel, and large bowel: Normal caliber stomach and bowel loops. No surrounding inflammatory changes. Appendix: Normal. Peritoneum and retroperitoneum: No ascites or pneumoperitoneum. No omental or mesenteric lesions. Lymph nodes: No enlarged lymph nodes. Blood vessels: Moderate atherosclerotic vascular calcification. No aortic aneurysm. No evidence of venous thrombosis. Abdominal and pelvic wall soft tissues: No acute abnormality. Bones: No acute abnormality. IMPRESSION: 1. 12 mm nodule within an emphysematous area of the right lower lobe is nonspecific, and may represent scarring, however cannot exclude a neoplastic process. Recommend follow-up per thoracic surgery.Short-term follow-up CT in 3 months can be obtained to further characterize as clinically warranted. 2. Additional smaller pulmonary nodules measuring up to 6 mm. 3. Indeterminate nodularity in the left adnexa appears similar to prior, and likely reflects a ovarian/left paraovarian lesion, however is better characterized on the MRI pelvis dated 04/07/2021. I have personally reviewed the images and I agree with this report. WSN: [id number] Ordering Physician: Katerina Muller Dictated By: Joseph Carter MD Dictated Date/Time: 11/01/22 11:26 a Reviewed By: Yoselin Durham MD Signed By: Yoselin Durham MD Signed Date/Time: 11/01/22 11:31 am Transcribed By: BARBARA Transcribed Date/Time: 11/01/22 10:52 am * Exam Date Time Procedure Performing Provider Status 11/01/22 9:[address] Chest W/ Contrast Eleuterio Guerrero (Verified) Notes: (CT Chest W/ Contrast) Reason For Exam: Tumor Primary RESULT: CT Chest W/ Contrast CT Chest W/ Contrast, CT Abd/Pelvis W/ IV Contrast Only INDICATION: lung adenocarcinoma status post lobectomy, with new brain metastasis; Clinical Question(s): Staging Metastatic Tumor TECHNIQUE: Helical CT scan of the chest, abdomen, and pelvis with IV contrast, formatted in 3 planes. 100 cc of Omnipaque 300 was administered intravenously. This study was performed without oral contrast. Weight-based protocol was performed using automatic exposure control. CTDIvol Body: 6.50 mGy, DLP Body: 437 mGy*cm. COMPARISON: Multiple priors, most recent dated 11/15/2021 (PET/CT). CT chest 07/16/2020. MRI pelvis with and without contrast 04/07/2021. 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 Trachea and airways: Patent without evidence of tracheal or endobronchial lesion. Unchanged 2 mm nodule at the right anterolateral wall of the upper trachea (axial image 18), stable from prior. Lungs and pleura: Status post left lower lobectomy. Moderate-severe centrilobular and paraseptal emphysema, predominantly involving the right lower lobe. 12 mm nodule in the right lower lobe within an emphysematous area (axial 52). Linear 6 mm nodule in the posterior inferior left upper lobe (axial 73). Few additional smaller pulmonary nodules are noted on series 205). No effusion or pneumothorax. Mediastinum and génesis: No mass or hematoma. No mediastinal or hilar lymphadenopathy. No esophageal abnormality. Normal thyroid. Heart: Heart is normal in size. No pericardial effusion. Aorta: Mild vascular calcification but no aneurysm. Pulmonary arteries: Normal caliber. No evidence of pulmonary embolism on this study performed without angiographic technique. Chest wall soft tissues: No acute abnormality. Diaphragm: Intact. Liver: Normal in attenuation and morphology. No suspicious lesion. Gallbladder: No CT evidence of gallbladder pathology. Bile ducts: Chronic mild intrahepatic and extrahepatic biliary ductal dilation. The CBD measures upto 11 mm. Spleen: Normal in size. Pancreas: No suspicious lesion or ductal dilatation. Adrenal glands: No nodule. Kidneys and ureters: No hydronephrosis, stone, or suspicious lesion. Areas of cortical scarring in the left kidney. Bladder: No wall thickening or surrounding stranding. Reproductive organs: In the left adnexa, medial to the left external iliac vessels, series 201, image 154, there is persistent nodularity, likely reflecting a left ovarian/paraovarian lesion, better characterized on the prior MRI pelvis dated 04/07/2021. Stomach, small bowel, and large bowel: Normal caliber stomach and bowel loops. No surrounding inflammatory changes. Appendix: Normal. Peritoneum and retroperitoneum: No ascites or pneumoperitoneum. No omental or mesenteric lesions. Lymph nodes: No enlarged lymph nodes. Blood vessels: Moderate atherosclerotic vascular calcification. No aortic aneurysm. No evidence of venous thrombosis. Abdominal and pelvic wall soft tissues: No acute abnormality. Bones: No acute abnormality. IMPRESSION: 1. 12 mm nodule within an emphysematous area of the right lower lobe is nonspecific, and may represent scarring, however cannot exclude a neoplastic process. Recommend follow-up per thoracic surgery.Short-term follow-up CT in 3 months can be obtained to further characterize as clinically warranted. 2. Additional smaller pulmonary nodules measuring up to 6 mm. 3. Indeterminate nodularity in the left adnexa appears similar to prior, and likely reflects a ovarian/left paraovarian lesion, however is better characterized on the MRI pelvis dated 04/07/2021. I have personally reviewed the images and I agree with this report. WSN: [id number] Ordering Physician: Katerina Muller Dictated By: Joseph Carter MD Dictated Date/Time: 11/01/22 11:26 a Reviewed By: Yoselin Durham MD Signed By: Yoselin Durham MD Signed Date/Time: 11/01/22 11:31 am Transcribed By: BARBARA Transcribed Date/Time: 11/01/22 10:52 am * Exam Date Time Procedure Performing Provider Status 10/28/22 4:10 PM MRI Brain W+W/O Contrast Stan Bustillo; Auth (Verified) Notes: (MRI Brain W+W/O Contrast) Reason For Exam: Brain tumor s/p resection;Other: RESULT: MRI Brain W+W/O Contrast MRI Brain W+W/O Contrast INDICATION / CLINICAL QUESTION: Reason: Other:; Brain tumor s p resection; Special Instructions: STEALTH PROTOCOL. *needs to be done today; Order Comment: STEALTH PROTOCOL. *needs to be done today TECHNIQUE: MRI of the brain was performed with and without contrast. Localizer sequences followed by 3-D axial T2 CUBE, axial FLAIR, postcontrast sagittal T1, and post-contrast 3D T1 REYNOLDS with multiplanar reformats. 12 mL of Clariscan was administered intravenously. COMPARISON: Noncontrast MRI brain 10/28/2022 performed at 2:55 AM. FINDINGS: BRAIN and EXTRA-AXIAL SPACES: Image quality is improved compared to the noncontrast study of earlier the same date due to decreased motion artifact. As seen on the noncontrast study, there has been right lateral frontal craniotomy for resection of tumor, with resection cavity in the right frontal lobe containing fluid, blood, and small amount of gas. A thin right hemispheric subdural collection is noted with nondependent gas overlying the right frontal lobe. Curvilinear hyperintensity at the margins of the resection cavity on the postcontrast series likely reflects intrinsic T1 shortening related to blood products as suggested on prior T1-weighted imaging of the study performed earlier the same date; accurate evaluationfor superimposed enhancement is suboptimal. No nodular enhancement is seen. Mild smooth dural enhancement is noted over the right cerebral convexity, likely reactive in the setting of recent surgery. There is no significant change in extensive edema in the right frontal lobe extending to the right anterior parietal lobe and external capsule. There is similar right to left midline shift of 7 mm with partial effacement of the right lateral ventricle. Mild scattered foci of T2 prolongation are seen in the white matter. The midline structures are unremarkable. Ventricles, cisterns, and sulci are unchanged in size and configuration, without hydrocephalus. No other abnormal intracranial enhancement is seen. Major intracranial flow voids are present. EXTRACRANIAL SOFT TISSUES: Orbits are unremarkable. Paranasal sinuses and mastoids are unremarkable. Right frontoparietal scalp swelling with overlying skin jessica. BONES: Marrow signal is preserved. IMPRESSION: Postsurgical findings from right frontal tumor resection. Curvilinear high signal at the margin of the right frontal resection cavity likely reflects intrinsic T1 shortening related to blood products; given this finding, it is difficult to accurately assess for any superimposed enhancement, though no residual nodularity is seen. Continued close follow-up is recommended. A similar preliminary report was provided by [facility]. WSN: [id number] Ordering Physician: Sukumar Burks Dictated By: Jessica Balbuena MD Dictated Date/Time: 10/29/22 12:00 p Reviewed By: Jessica Balbuena MD Signed By: Jessica Balbuena MD Signed Date/Time: 10/29/22 12:00 pm Transcribed By: BARBARA Transcribed Date/Time: 10/29/22 11:44 am * Exam Date Time Procedure Performing Provider Status 10/28/22 3:38 AM MRI Brain W/O Contrast Gurpreet Chaparro ; Auth (Verified) Notes: (MRI Brain W/O Contrast) Reason For Exam: Brain tumor s/p resection;Other: RESULT: MRI Brain W/O Contrast MRI Brain W/O Contrast INDICATION: Reason: Other:; Brain tumor s p resection; Special Instructions: STEALTH PROTOCOL. Please complete overnight between 10 27 to 10 28; Order Comment: Please see Reference Text for complete list of contraindications STEALTH PROTOCOL. Please complete overnight between 10/27 to 10/28 TECHNIQUE: MRI of the brain was performed without contrast utilizing sagittal T1, axial T2, axial FLAIR, axial SWAN, and axial DWI sequences. Post contrast imaging was not performed as the patient was moving too much (despite medication) to safely continue the examination. COMPARISON: MRI brain 10/27/2022. FINDINGS: Examination is moderately to significantly degraded by motion on multiple images. BRAIN and EXTRA-AXIAL SPACES: There has been interval right lateral frontal craniotomy for resection of the right frontal lobe tumor. Expected postoperative changes are noted, including blood products and fluid in the resection cavity, and a thin subdural collection over the right cerebral convexity containing gas, fluid, and intermixed blood products. There is a thin band of reduced diffusivity in the parenchyma at the margins of the resection cavity, suggesting marginal ischemia/devitalized tissue adjacent to the surgical site. No large vessel territory infarct is seen. Extensive right frontal edema is again noted, similar to the prior examination. There remains partial effacement of the right lateral ventricle and evniq-mz-rbvj midline shift of approximately 7 mm, slightly decreased from preoperative MRI. The midline structures, including sella, corpus callosum, and craniocervical junction, are grossly unremarkable. There is no new mass effect. Grossly similar appearance of mild patchy T2 prolongationin the periventricular and subcortical white matter compatible with chronic small vessel disease. Ventricles, cisterns, and sulci are somewhat in size and configuration, without hydrocephalus. Major intracranial flow voids are present. EXTRACRANIAL SOFT TISSUES: Orbits are unremarkable. Paranasal sinuses and mastoids are unremarkable. BONES: Marrow signal is preserved. IMPRESSION: Motion degraded examination demonstrating expected postoperative findings following right frontal tumor resection, with slight decrease in mass effect. Note that postcontrast imaging could not be performed due to excessive motion preventing safe continuation of the examination. WSN: [id number] Ordering Physician: Tyrone Mendieta Dictated By: Jessica Balbuena MD Dictated Date/Time: 10/28/22 8:58 am Reviewed By: Jessica Balbuena MD Signed By: Jessica Balbuena MD Signed Date/Time: 10/28/22 8:58 am Transcribed By: BARBARA Transcribed Date/Time: 10/28/22 8:47 am * Exam Date Time Procedure Performing Provider Status 10/27/22 8:[address] Head/Brain W/O Contrast Yoselin Rojas; Dago (Verified) Notes: (CT Head/Brain W/O Contrast) Reason For Exam: Brain tumor s/p resection;Other: RESULT: CT Head/Brain W/O Contrast CT Head/Brain W/O Contrast INDICATION: Reason: Other:; Brain tumor s p resection; Order Comment: TECHNIQUE: Noncontrast head CT using axial technique and reconstructed in axial and coronal planes.Iterative reconstruction techniques are used to optimize dose and image quality. CTDIvol Head: 47.47 mGy, DLP Head: 1159 mGy*cm. COMPARISON: Correlated to previous MRI from 10/27/2022 at 12:18 AM. 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 BRAIN AND EXTRA-AXIAL SPACES: Patient status post right frontal craniotomy with resection of portion of the right frontal lobe there is pneumocephalus in the resected segment with marked vasogenic edema resulting in subfalcine herniation and approximately 7 mm shift of the midline to the left. Pneumocephalus is also present anterior to the right frontal lobe and small amount of pneumocephalus anterior to the left frontal lobe. A small amount of pneumocephalus anterior to the right temporal lobe. There is mass effect on the right lateral ventricle and third ventricle. IMPRESSION: Status post right frontal craniotomy with postsurgical changes. Slight interval decrease in degree of midline shift to the left which is now 7 mm as compared to 9 mm on the previous MRI. Persistent marked vasogenic edema within the right frontal lobe. Recommend repeat CT in 8 to 12 hours or earlierif patient's neurological exam deteriorates. WSN: [id number] Ordering Physician: Sukumar Burks Dictated By: Shabnam Mae MD Dictated Date/Time: 10/27/22 8:25 pm Reviewed By: Shabnam Mae MD Signed By: Shabnam Mae MD Signed Date/Time: 10/27/22 8:25 pm Transcribed By: BARBARA Transcribed Date/Time: 10/27/22 8:19 pm * Exam Date Time Procedure Performing Provider Status 10/27/22 1:20 AM MRI Brain W+W/O Contrast Guzman Valentin; Modified Notes: (MRI Brain W+W/O Contrast) Reason For Exam: New brain mass;Other: RESULT: MRI Brain W+W/O Contrast MRI Brain W+W/O Contrast INDICATION / CLINICAL QUESTION: Reason: Other:; New brain mass; Clinical Question(s): Tumor Secondary; Special Instructions: Please apply STEALTH protocol, patient needs this study for surgery in AM;Order Comment: Please see Reference Text for complete list of contraindications Tumor Secondary Per EMR: History of lung cancer, transferred from outside facility after presenting with left-sidedweakness, with outside head CT demonstrating right frontal mass with surrounding edema. TECHNIQUE: MRI of the brain was performed with and without contrast utilizing sagittal and axial T1, axial T2, axial FLAIR, axial SWAN, 3-D T2 CUBE, and axial DWI sequences, and post-contrast 3D T1 REYNOLDS with multiplanar reformats. 12 mL of Clariscan was administered intravenously. COMPARISON: MRI brain 05/17/2022. FINDINGS: BRAIN and EXTRA-AXIAL SPACES: There is a lobulated enhancing mass in the right frontal lobe measuring 3.3 x 3.1 x 3.0 cm, new from 05/17/2022. This is T1 hypointense, T2 intermediate, and demonstrates prominently solid enhancement, with an area of nonenhancing cystic change anteriorly. The lesion demonstrates reduced diffusivitywithin the enhancing component suggesting hypercellularity. There is trace internal susceptibility artifact compatible with trace intratumoral hemorrhage. There is extensive surrounding edema in the right frontal lobe extending to the anterior parietal lobe as well as inferiorly to the basal ganglia and external capsule. This results in right cerebral sulcal effacement as well as effacement of the right lateral ventricle, right to left midline shift measuring 9 mm at the level of the septum pellucidum, and leftward subfalcine herniation. The basal cisterns are preserved. No other foci of abnormal enhancement are seen. On diffusion weighted imaging, there are no regions of restricted diffusion separate from the mass to indicate an acute or subacute infarct. There is no space-occupying hematoma. Mild scattered foci of T2 prolongation are seen in the periventricular, deep, and subcortical white matter, nonspecific but likely to reflect chronic small vessel disease. The midline structures are unremarkable. There is no hydrocephalus. No abnormal extra-axial fluid collections are seen. Meningeal surfaces are normal. Major intracranial flow voids are present. EXTRACRANIAL SOFT TISSUES: Orbits are unremarkable. Paranasal sinuses and mastoids are unremarkable. BONES: Marrow signal is preserved. IMPRESSION: 3.3 cm enhancing right frontal mass with significant surrounding edema and 9 mm right to left midline shift as above. This is new from 05/17/2022, and suspicious for solitary metastasis in a patient with history of lung cancer. WSN: [id number] Ordering Physician: Bandar Steven Dictated By: Jessica Balbuena MD Dictated Date/Time: 10/27/22 9:23 am Reviewed By: Jessica Balbuena MD Signed By: Jessica Balbuena MD Signed Date/Time: 10/27/22 9:23 am Transcribed By: BARBARA Transcribed Date/Time: 10/27/22 9:11 am Vital Signs Most recent to oldest [Reference Range]: 1 2 3 Height 154.94 cm (11/04/22 4:07 PM) 154.94 cm (11/04/22 3:10 PM) 154.94 cm (11/03/22 3:21 PM) Weight 59.0 kg (11/02/22 3:29 AM) 58.2 kg (10/31/22 8:51 PM) 55.9 kg (10/30/22 5:01 AM) Oxygen Saturation [94-100 %] 100 % (11/04/22 4:07 PM) 100 % (11/04/22 3:10 PM) 99 % (11/04/22 8:00 AM) Pulse Rate [55-90 bpm] 82 bpm (11/04/22 4:07 PM) 84 bpm (11/04/22 3:10 PM) 82 bpm (11/04/22 8:00 AM) Body Mass Index [18.5-24.99 kg/m2] 23.87 kg/m2 (10/27/22 1:30 PM) 23.87 kg/m2 (10/26/22 4:27 PM) Blood Pressure [90-138/55-84 mm Hg] 138/86mm Hg (11/04/22 4:07 PM) 142/87mm Hg *H* (11/04/22 3:10 PM) 133/95mm Hg (11/04/22 10:00 AM) Respiratory Rate [16-30 br/min] 18 br/min (11/04/22 4:07 PM) 16 br/min (11/04/22 3:10 PM) 18 br/min (11/04/22 10:20 AM) Temperature [96.8-100.4 DegF] 98 DegF (11/04/22 4:07 PM) 96.8 DegF (11/04/22 3:10 PM) 98.2 DegF (11/04/22 8:00 AM) Liters per Minute 2 L/min (10/27/22 10:00 PM) 2 L/min (10/27/22 9:00 PM) 2 L/min (10/27/22 8:20 PM) Mode of Delivery (Oxygen) Room air (11/04/22 4:07 PM) Room air (11/04/22 3:10 PM) Room air (11/04/22 8:00 AM) Blood pressure sites Arm, right (11/04/22 3:10 PM) Arm, right (11/04/22 8:00 AM) Arm, left (11/04/22 3:00 AM) Temperature Route Oral (11/04/22 4:07 PM) Temporal (11/04/22 3:10 PM) Oral (11/04/22 8:00 AM) Dry Weight 57.8 kg (10/27/22 5:33 PM) 57.3 kg (10/26/22 4:27 PM) Weight Obtained Via Bed scale (11/02/22 3:29 AM) Bed scale (10/31/22 8:51 PM) Bed scale (10/30/22 5:01 AM) Dry Weight Obtained Via Bed scale (10/26/22 4:27 PM) Social History Social History Type Response Smoking Status Smoker, current stat us unknown; Other: Patient currently smoking 5-7 cig per day; Tobacco use times per day: 50 years <1ppd; entered on: 06/22/22 Sex Admission evaluation note * Sukumar Burks DO: MODIFY, PERFORM Event Display: Admission Note Authored Date: [id number] Patient: ??ANA MARIA EATON ? Age:??67 Years?Sex:??Female?:??1955?? History of Present Illness Patient is a 67-year-old woman with a history of lung cancer status post lobectomy, heroin use on methadone 70mg daily, HTN, anxiety, tobacco use, GERD,??COPD and hep c??admitted to [facility] with leftlower extremity weakness and confusion found to have frontal lobe mass and transferred to [facility].She presented to outside hospital??with left-sided weakness for approximately 1 week. ??Patient underwent head CT which demonstrated right frontal mass this was followed up by MRI with and without contrast which confirmed findings.??In pre op she was noted to have L sided extremity weakness. She underwent Right frontal craniotomy for resection of brain tumor for Ogbuji today for metastatic lung ca ncer and is admitted to the ICU for neurochecks. Review of Systems Negative unless otherwise stated above Physical Exam Vitals & Measurements T:??97.0?F?? TMIN:??97.0?F?? TMAX:??97.6?F?? HR:??58??(Monitored)?? RR:??12?? BP:??150/80?? SpO2:??100%?? WT:??57.8??kg?? Constitutional: Lethargic, but arousable. Head: Normocephalic. R frontal cranial dressing clean, dry and intact. Eyes: Pupils are equal, round and reactive to light. Extraocular muscles intact. Ear, Nose and Throat: Oropharynx clear, mucous membranes moist. Neck: Supple, Full range of motion. Respiratory: Clear to auscultation. No wheezing, rales or rhonchi. Cardiovascular: S1 S2 regular. No murmurs, rubs or gallops. Gastrointestinal: Abdomen soft, non-tender, non-distended. Normal bowel sounds. Neurologic: GCS 13 (E3, V4, M6), though LUE withdraws do pain. Cranial nerves II-XII grossly intact. No focal neurological deficits. Skin: No rashes or lesions. Musculoskeletal: No cyanosis or clubbing. No gross deformities. Assessment/Plan Patient is a 67-year-old woman with a history of lung cancer status post lobectomy, heroin use on methadone 70mg daily, HTN, anxiety, tobacco use, GERD,??COPD and hep c??admitted to [facility] with leftlower extremity weakness and confusion found to have frontal lobe mass and transferred to [facility].She presented to outside hospital??with left-sided weakness for approximately 1 week. ??Patient underwent head CT which demonstrated right frontal mass this was followed up by MRI with and without contrast which confirmed findings.??In pre op she was noted to have L sided extremity weakness. She underwent Right frontal craniotomy for resection of brain tumor for Ogbuji today with concern for metas tatic lung cancer??and is admitted to the ICU for neurochecks. ? Neuro ?Metastatic lung cancer ? Acute posteropative pain ? Chronic methadone use 2/2??history of heroin abuse ? Plan- ?-Pain regimen: Tylenol 650mg q6hrs, Oxycodone 5mg q4hrs PRN??and??Dilaudid?? 0.5mg q4hrs PRN; considering dilaudid SAUSAGE STUFFER for acute pain, if needed ? - Continue Keppra 500 BID ? -??Continue methadone 70mg daily ?-??Possible addiction med consult pending pain control ?NSG Consult, appreciate recommendations ?- Neuro checks Q1??hr ?- HOB >30 ? -??SBP<140 ? - Ancef for 24hrs, decadron 4mg q8hrs ?-??Post op Head CT w/o contrast JEFFRY ? - MRI??brain w/ and w/o contrast and STEALTH Protocol overnight ?- no pharm DVT prophylaxis?? SCDs ?CV- ?PMHx: HTN ?Plan- ?-Continuous cardiac monitoring ?-Goal MAP > 65, but SBP <140, nicardipine PRN ?-Fluid boluses as needed ?-Monitor BP/HR ?Pulm- ?Stable on room??air ?Hx Smoker, COPD ?Plan- ?- CPT, incentive spirometer??& Duonebs ?- Maintain SpO2 between 88% ?FEN/GI- ?Hx??GERD ?Plan- ?-Diet:??regular ?-Monitor and record bowel movements ?-Bowel regimen: Milk of Mag, Docusate ?-PPI: Pantoprazole?-Monitor daily Ins/Outs ?Renal- ?French placed 6/19 ?Electrolyte abnormalities: Hypocalcemia,??Hypomagnesemia,??Hypokalemia ?Plan- ?-Discontinue french catheter, UOP has been >50cc/hr, continue to monitor urine output ?-Daily renal labs ?-Replete lytes per ICU Ca/Phos/Potassium protocol ?Heme- ?No active issues ?Plan- ?-Will transfuse for Hgb < 7.0 per ICU protocol?-Daily CBC ?-Monitor H/H trends ?Endocrine- ?No acute issues ?Plan- ?-ICU insulin protocol not requiring insulin drip vs insulin sliding scale.?MSK/Integ- ?(R) craniectomy incision with??dressing clean, dry and intact ?Plan- ?-Dressing managed by neurosurgery ?ID- ?Hep c ?Plan- ?-Monitor fever curve ?-Trend WBC's ?-??Ancef for 24hrs ?Social- ?HCP:??MAGDA HAUSER?Relation to Pt: Child ?[address] ?[place] [address] ?Prophylaxis- ?HOB > 30 degrees ?GI: Pantoprazole (home med) ?DVT: Hold per neurosurgery, SCDs while in bed ?Code Status-Full Code ?Primary Team- Trauma ?Consultants- Neurosurgery ?Disposition-??The patient remains in STICU for neurochecks ?Patient seen and plan of care discussed with attending, Dr. 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 Age at leaving school - ged [employer] [place] respiration: see 05/25/11 Sleep Report Clubbing Drug abuse: Suboxone via [facility] Emphysema of lung: mixed emphysema/UIP Esophageal reflux (GERD) JASON (generalized anxiety disorder) Hep C: Cleared without treatment HPV: Positive in 07/15; 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, negative in 10/16 Hypertension Lung cancer Lung nodules Major depressive disorder, Raegan at [facility] Opioid use disorder Osteoporosis Pain in finger of right hand Palpitations Pelvic mass Resting tremor Tobacco abuse Tubular adenoma of colon Procedure/Surgical History ???Colonoscopy (04/19/2019)???Esophagogastroduodenoscopy and biopsy (04/19/2019)???Colonoscopy (07/17/2015)???Upper gastrointestinal endoscopy including esophagus, stomach, and either the duodenum and/or jejunum as appropriate; with biopsy, single or multiple (06/07/2012)???Colonoscopy (05/31/2010)??? section???Colonoscopy - Dr. Smith 05/2010- Tubular Adenoma - REPEAT 2015, 5 years???left lung nodule removed Medications Inpatient Ancef Inj, 1 Gm, IV Push, Every 8 hours Bisacodyl Supp, 10 mg= 1 supp, Rectally, 2 times a day, PRN Decadron Tablet, 4 mg, By Mouth, Every 8 hours Dilaudid Inj, 0.5 mg= 0.5 mL, IV Push Slowly, Every 4 hours, PRN Docusate/Senna Tablet, 1 tablet, By Mouth, 2 times a day, PRN Keppra 500 mg oral tablet, 500 mg, By Mouth, 2 times a day Melatonin Tablet, 3 mg, By Mouth, Daily at bedtime, PRN Methadone Liquid, 70 mg= 35 mL, By Mouth, Every 24 hours Milk of Magnesia Liquid, 30 mL, By Mouth, 2 times a day, PRN NaCL 0.9% Flush, 3 mL, IV Push, Every 8 hours, PRN nalOXONE Inj, 0.2 mg= 0.5 mL, IV Push, Every 5 minutes, PRN NiCARDipine Cont IV 25 mg + NaCL 0.9% for Titration 250 mL Nicotine Topical, 21 mg, Topically, Daily Nicotrol Inhaler, 1 inhalation, Inhalation, Every hour, PRN oxyCODONE 5 mg oral tablet, 5 mg, By Mouth, Every 6 hours, PRN pantoprazole 20 mg oral delayed release tablet, 20 mg, By Mouth, Daily Remove Patch, 1 each, Topically, Daily Tylenol 325 mg oral tablet, 650 mg, By Mouth, Every 6 hours, PRN Ventolin 90 mcg Inhaler, 180 mcg= 2 puffs, Inhalation, 4 times a day, PRN Home alendronate 70 mg oral tablet, 1 tablet, By Mouth, Every week calcium-vitamin D 600 mg-400 intl units oral tablet, 1 tablet, By Mouth, 2 times a day with meals clonazePAM 0.125 mg oral tablet, disintegrating, See Instructions Flovent HFA 220 mcg/inh inhalation aerosol, 2 puffs, Inhalation, 2 times a day fluticasone 50 mcg/inh nasal spray, See Instructions lisinopril 10 mg oral tablet, 1 tablet, By Mouth, Daily melatonin 3 mg oral tablet, 6 mg= 2 tablet, By Mouth, Daily at bedtime, PRN, 2 refills Methadone, 70 mg, By Mouth, Daily nicotine 2 mg oral transmucosal lozenge, 2 mg= 1 lozenge, By Mouth, Every 2 hours, 11 refills omeprazole 20 mg oral enteric coated capsule, 20 mg= 1 capsule, By Mouth, Daily Stiolto Respimat 60 ACT 2.5 mcg-2.5 mcg/inh inhalation aerosol Ventolin HFA 108 mcg/inh inhalation aerosol with adapter, 2 puffs, Inhalation, 4 times a day, PRN Allergies Other Environmental Allergy Rubber Zoloft??(O/E - Parkinsonian tremor) Social History Alcohol Use: Current. Frequency: 1-2 times per year. Electronic Cigarette/Vaping Electronic Cigarette Use: Former use, quit more than 90 days ago. Employment/School Status: Retired. 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 Exercise Self assessment: Poor condition. Regular exercise: No. Home/Environment Living situation: Home/Independent. Lives with: Alone. Nutrition/Health Diet: Regular. Sexual Sexually involved in last 6 months: Yes. Sexual orientation: Heterosexual. Preferred pronoun: She/her. Ever been sexually involved? Yes. Number of partners in last 6 months: 1. Substance Abuse Use: Past. Type: Heroin, Prescription medications. Other: on suboxone. Tobacco Use: Smoker, current status unknown. Other: Patient currently smoking 5-7 cig per day. Tobacco use times per day: 50 years <1ppd. Family History Cancer of lung: Mother. 13-JUL-2013 07:21:16<$>: Father. Diabetes mellitus type II: Father. Heart attack: Mat. Grandmother. Hyperlipidemia: Father. Hypertension: Father. Immunizations Vaccine Date Status [id number] 12y+ bivalent booster vax 05/11/2022 Recorded influenza virus vaccine, inactivated 02/16/2022 Recorded SARS-CoV-2 mRNA (ffiyccd-eirh-fysqx) vax 12/14/2021 Given SARS-CoV-2 mRNA (ffsxqin-nprb-zugst) vax 09/14/2021 Given SARS-CoV-2 (COVID-19) mRNA BNT-162b2 vac 03/23/2021 Recorded influenza virus vaccine, inactivated 02/18/2021 Recorded SARS-CoV-2 (COVID-19) mRNA BNT-162b2 vac 08/04/2020 Recorded SARS-CoV-2 (COVID-19) mRNA BNT-162b2 vac 07/14/2020 Recorded zoster vaccine, inactivated 06/30/2020 Recorded zoster vaccine, inactivated 02/23/2020 Recorded Comments : [facility] influenza virus vaccine, inactivated 02/23/2020 Recorded Comments : [facility] Zoster Vaccine Live 02/23/2020 Recorded Influenza Virus Vaccine (oldterm) 02/23/2020 Recorded tetanus-diphtheria toxoids (Td) 02/08/2019 Given influenza virus vaccine, inactivated 02/08/2019 Given influenza virus vaccine, inactivated 02/08/2018 Given influenza virus vaccine, inactivated 06/08/2017 Recorded Zoster Vaccine Live 05/23/2016 Recorded influenza virus vaccine, inactivated 02/25/2016 Given influenza virus vaccine, inactivated 03/19/2015 Given influenza virus vaccine, inactivated 02/18/2014 Given influenza virus vaccine, inactivated 03/26/2013 Given influenza virus vaccine, inactivated 02/20/2012 Given Comments : vis 12/2011 Tet/Diphth/Acel, Pertussis (oldterm) 02/20/2012 Given Comments : vis 05/31/11 pneumococcal 23-valent vaccine 02/16/2011 Given Comments : vis given Influenza Vaccine (oldterm) 01/27/2011 Given Comments : vis given Influenza Inactive (IM) (oldterm) 08/23/2010 Given Comments : vis tetanus-diphtheria toxoids (Td) 08/23/2010 Given Comments : vis 03/25/08 Influenza Vaccine (oldterm) 06/02/2009 Given Comments : vis influ virus vac, H1N1, inactive(oldterm) 06/02/2009 Given Comments : vis influenza virus vaccine, inactivated 04/23/2008 Given Diagnostic Results (10/27/2022 01:20 EDT MRI Brain W+W/O Contrast) IMPRESSION: ?? 3.3 cm enhancing right frontal mass with significant surrounding edema and 9 mm right to left midline shift as above. This is new from 05/17/2022, and suspicious for solitary metastasis in a patient with history of lung cancer. [1] [1]??MRI Brain W+W/O Contrast; Sree MARINELLI, Jessica Frost 10/27/2022 01:20 EDT * Neha MARINELLI, Paresh Alvarez: PERFORM Event Display: Admission Note Authored Date: I have personally seen and evaluated the patient, lab work and imaging on the day of above residentnote. ??I agree with the documented resident note and plan for care, as above/below. 35 minutes of critical care were provided to this patient. ?? At the time of service, this patient is critically ill due to the acute impairment of 1 or more vital organ systems such that there is a high probability of imminent or life-threatening deteriorationin the patient???s condition.? S/P Craniotomy --> Hourly neuromonitoring. ? Paresh Solomon, ??, MPH, FACS Trauma, General Surgery and Surgical Critical Care * Bandar Steven MD: PERFORM, MODIFY, MODIFY, MODIFY Event Display: Admission Note Authored Date: Patient: ??ANA MARIA EATON ? Age:??67 Years?Sex:??Female?:??1955?? HPI: This is a 67-year-old woman with a history of lung cancer status post lobectomy, history of heroin use on methadone, admitted to [facility] with left lower extremity weakness and confusion found to havefrontal lobe mass and transferred to [facility]. ?? The patient is not able to provide specific details. ??According to notes and her daughter, based patient was at her baseline until or roughly 2 weeks ago she started having some speech difficulties and weakness. ??Daughter stated that in the last few days she has been calling her at all hours the night leaving messages which is unlike her. ??Is also concerned certain about heroin use with a feeling that she has been using over the last 2 years since her lobectomy. ?? She underwent right lobectomy in 2020 at [facility]. ??She was told that it was stage I did not require any adjuvant treatment. ??She was being monitored for small pulmonary nodules amphetamine and emphysema by her thoracic surgeon. ?? She has a history of dysphagia for the past roughly 1 year. ??Denies loss of appetite or weight loss. ??No nausea or emesis. ??She has had some headaches for the past 2 weeks. ??No dysphonia no worsening cough or chest pain. ??No abdominal discomfort or change in bowels or bladder control. ?? She notes weakness in her left upper extremity and left lower extremity. ?? At [facility] temperature 98.1 blood pressure 108/65 heart rate 71 respiratory rate 14 oxygen 95% on room air WBC 5.9, hemoglobin 13.7, platelet 155 Sodium 142 potassium 3.6 bicarb 23 BUN 11 creatinine 0.8 glucose 112 COVID-negative UA with 21-50 WBCs, greater than 20 squamous cells, 4+ bacteria Urine positive for opiates fentanyl and benzodiazepine MRI revealed 3cm R frontal lobe mass with vasogenic edema and 8mm midline shift. She was started on Decadron, hemeonc and neurology were consulted and recommended transfer to [facility]. ?? On arrival to the floor, her main complaint is neck stiffness and anxiety. ?? ROS: As above, rest of full review negative. ?? PMH: Tubular adenoma of colon Esophageal reflux (GERD) Hypertension Emphysema of lung: mixed emphysema/UIP JASON (generalized anxiety disorder) Hep C: ??Cleared without treatment Lung cancer Lung nodules Major depressive disorder, Raegan at [facility] Opioid use disorder on methadon Osteoporosis Resting tremor Tobacco use ?? MEDS: Albuterol (Ventolin HFA 108 mcg/inh inhalation aerosol with adapter)?2?puff(s)?Inhalation?4 times a day?as needed? NEEDED FOR WHEEZING Alendronate (alendronate 70 mg oral tablet)?1?tab(s)?By Mouth?Every week Calcium And Vitamin D Combination (calcium-vitamin D 600 mg-400 intl units oral tablet)?1?tab(s)?By Mouth?2 times a day with meals Clonazepam (clonazePAM 0.125 mg oral tablet, disintegrating)?See Instructions?1 tablet By Mouth Daily at bedtime. Fluticasone (Flovent HFA 220 mcg/inh inhalation aerosol)?2?puff(s)?Inhalation?2 times aday?AND THROAT AFTER EACH USE. Fluticasone Nasal (fluticasone 50 mcg/inh nasal spray)?See Instructions?USE 1 SPRAY IN EACH NOSTRIL DAILY Lisinopril (lisinopril 10 mg oral tablet)?1?tablet?By Mouth?Daily Melatonin (melatonin 3 mg oral tablet)?2?tab(s)?6?Milligram?By Mouth?Daily at bedtime?as needed?Insomnia Methadone?70?Milligram?By Mouth?Daily Nicotine (nicotine 2 mg oral transmucosal lozenge)?1?lozenge(s)?2?Milligram?By Mouth?Every 2 hours Omeprazole (omeprazole 20 mg oral enteric coated capsule)?1?capsule?20?Milligram?By Mouth?Daily ?? Social: Lives independently, reportedly actively using heroin and cigarettes ?? Exam: GEN: Comfortable in bed, chronically ill appearing HEENT: Moist membranes HEART: Warm extremities LUNGS: Breathing comfortably room air ABD: Soft, nontender : No french EXT: Warm, no edema NEURO: Weakness left upper and left lower extremity, left sided facial droop PSYCH: Calm and cooperative ? MRI??brain??with and without contrast??10/25/22 Right frontal lobe mass measuring up to 3.4 cm with extensive surrounding vasogenic edema and mass effect resulting in 8 mm leftward midline shift and mild medialization of the right uncus. ??No other intraparenchymal lesions are identified. ??Differential considerations include solitary metastaticdisease, less likely a high-grade glial neoplasm. ? CT chest with contrast Impression: Severe emphysema. ??Multiple pulmonary nodules and parenchymal opacities. ??Most suspicious are a 1.8 x 1.3 cm left upper lobe nodule and a 8 x 10 mm right lower lobe nodule. ?? CT abdomen pelvis with contrast Impression: Mild intra and extrahepatic biliary duct dilatation. ??Cortical thinning or scarring of the left kidney. ??Diffuse bladder wall thickening. ??Severe atherosclerotic disease. ?? CT head without contrast Impression: There is a rounded 3 cm mass within the subcortical white matter of the right frontal lobe with a broad margin of perilesional vasogenic edema. ??Mass effect within the right supratentorial compartment causes 0.9 cm leftward midline shift at the septum Lucid. ??No overt mesencephalic compression. ? Assessment and Plan: 67-year-old woman with a history of lung cancer status post lobectomy, history of heroin use on methadone, admitted to [facility] with left lower extremity weakness and confusion found to have frontal lobe mass and transferred to [facility]. ?? # 3cm??R frontal??mass with vasogenic edema and 0.8cm midline shift Likely metastatic from lung, currently full consciousness. - decadron 4mg IV q6hr - ordered stat MRI brain with/without - neurosurgery aware, considering OR tomorrow - NPO at midnight - f/u type and screen - f/u basic labs ?? # Perop evaluation She has no known cardiac history, her main intraoperative and postoperative risk is COPD, though this is mild. She is overall low risk for intermediate risk procedure. - will hold lisinopril to preserve intraop blood pressure - not anticoagulated - would recommend post operative continuous oxygen monitoring ?? # HTN - hold lisinopril for now ?? # Chronic pain - continue methadone ?? # Anxiety - clonazepam 1mg bid ?? # Smoker - nicotine patch ?? # GERD - cont ppi ?? # COPD - cont albuterol prn ?? CODE - presumed full DVT - heparin DIET - regular EKG study * Event Display: EKG Authored Date: * Event Display: ECG 12-Lead Authored Date: Please click on pdf link to open report * Event Display: ECG 12-Lead Authored Date: Ventricular Rate: 66 BPM Atrial Rate: 66 BPM P-R Interval: 136 ms QRS Duration: 88 ms Q-T Interval: 446 ms QTC Calculation(Bazett): 467 ms P Williams: 65 degrees R Williams: 36 degrees T Williams: 50 degrees Normal sinus rhythm Nonspecific ST abnormality Abnormal ECG When compared with ECG of 06-JUN-2020 12:58, No significant change was found Confirmed by KATERINA GREGG MD ([id number]) on 11/02/2022 6:10:27 PM Loyall: KATERINA GREGG MD Cardiology * Event Display: Cardiac Rhythm Strips Authored Date: * Event Display: Cardiac Rhythm Strips Authored Date: Hospital Progress note * Millicent Varma RN: PERFORM, SIGN, VERIFY Event Display: Progress Note Hospital Authored Date: Patient: ANA MARIA EATON Age: 67 years Sex: Female : 1955 Associated Diagnoses: None Author: Millicent Varma RN Findings Problem Related to Alteration in Neurological : Alteration in Neurological Function/new 11/04/2022 10:00 EDT Alteration in Neuro status Related to Neurology Procedure Goals & Outcomes, Neurological Lab studies/diagnostic tests within pt specific limits, Pt is safe with transfers & activities, Pt will be discharged without infection, Pt will be hemodynamically stable, Pt will be Neurologically stable, Pt will become pain free with appropriate intervention, Pt will maintain intact skin integrity, Pt will remain free from injury, Pt will state importance of adhering to medication regime, Pt/caregiver will receive psychosocial support as needed, Pt/caregiver will state strategies to reduce risk factors, Pt/caregiver will state understanding of plan/goals of care, Pt/caregiver will state understanding of the D/C plan Interventions, Neurological Assess/monitor for abnormal posturing, Assess/monitor for gaze pattern/extraocular movements, Assess/monitor for increased Intracranial Pressure, Assess/monitor neurologicstatus, Assess/monitor VS per unit standards & prn Goals/Interventions, Neurological Yes Neurological, Problem Start 10/26/2022 16:00 Reviewed plan with, Neurological Patient Patient Progression, Neurological Pt progressing according to plan . Narrative/Incidental Patient remains on acute level of care with orders to go to rehab at 1700 today. She is A&Ox4 but can be forgetful. Daughter was at bedside with some concerns, MD paged and concerns were addressed per patient. Offerle present to right side of head with no s/s of infection. Q4 neuro's upheld. Noother acute events today. Awaiting S3 discharge unit bed, bed is in the lowest and locked position,phone and call hernandez are within reach and patient is able to make needs known. See flow sheet for full assessment data.. Discharge Information Case Management Discharge Plan : Case Management Discharge Plan Data 11/04/2022 14:38 EDT Discharge Level of Care at Discharge [facility] facility Discharge Nursing Homes/Rehab Facilities [facility] Discharge Transportation Arranged [facility] [address] [facility] [phone] Discharge Arranged Transport Date/Time 11/04/2022 17:00 Mode of Transportation Arranged Ambulance Name of Agency #[facility] Agency Meteorological Engineer #1 Intake Service Categories #1 Occupational Therapy, Physical Therapy, [facility] Service Start Date and Time #1 11/04/2022 17:00 Service Comments #1 [facility] You will receive PT, OT, and longterm. Name of Person Notified of Transfer blossom Man Rehabilitation Discharge : Rehab Discharge Index 11/03/2022 12:35 EDT Walker: distance 20-50 11/03/2022 9:49 EDT Transfer tub/shower OT Plan Contact guard 11/02/2022 9:16 EDT Comments on treatment indicated OT to address: ADL's, transfers, LUE function, safety. Full chart review completed Yes Hospital course Please see comment Transfer tub/shower OT Plan Contact guard 10/31/2022 14:04 EDT Comments on treatment indicated 67 year old female with a history of lung cancer who presented with left sided weakness and altered mental status. MRI of the brain revealed a large right frontal mass. Pt now s/p craniotomy with resection of mass. WBAT, fall risk. PT f/u for therex, Walker: distance 20-50 Distance pt will ambulate 80' c walker Full chart review completed Yes Hospital course see comment Other findings Other findings Plan of care PT Gait training, Transfer training, Therapeutic exercise, Functional Activities, Balance training, Neuromuscular education * Katie HOLM, Ryan: PERFORM, SIGN, VERIFY Event Display: Progress Note Hospital Authored Date: [id number] Patient: ANA MARIA EATON Age: 67 years Sex: Female : 1955 Associated Diagnoses: None Author: Katie HOLM, Ryan Findings Nursing Data Neurological Data. : Neurological Data. 11/03/2022 22:30 EDT Tongue Disposition Midline Neurological Symptoms Other: hx brain mass Level of Consciousness Full Consciousness Orientated to person, place, time Person, Place, Time, Event Hallucinations None Facial Symmetry Intact Characteristics of Speech Clear and normal Pupil description, left Regular Pupil description, right Regular Pupil reaction, left Brisk Pupil reaction, right Brisk Strength LUE 5-Active movement against gravity & full resistance Strength RUE 5-Active movement against gravity & full resistance Strength LLE 5-Active movement against gravity & full resistance Strength RLE 5-Active movement against gravity & full resistance Tone LUE Normal Tone RUE Normal Tone LLE Normal Tone RLE Normal Sensation LUE Intact Sensation RUE Intact Sensation LLE Intact Sensation RLE Intact Movement LUE Spontaneous Movement RUE Spontaneous Movement LLE Spontaneous Movement RLE Spontaneous Gait Other: x1 assist with walker Response Eye Opening Spontaneously Motor Response-Adult Obeys commands Verbal Response-Adult Oriented and converses Pablito Coma Score 15 Neuro WNL except Eyes and Movements Conjugate gaze: Move in same direction at same speed Memory Intact Swallow - Neuro Normal . Evaluation AOx4, PERRL, 5/5 strength in all limbs, denies pain, headache, vision changes, numbness, tingling. Hemodynamically stable, PPPx5, cap refill brisk, extremities warm/well perfused. Lungs clear bilaterally, RR normal, on RA, denies SOB or cough. BSx4, abdomen SNT, denies NVD. Patient requesting HS clonazepam, no other voiced needs or concerns at this time. . * Cassidy Schneider: PERFORM, SIGN, VERIFY Event Display: Progress Note Hospital Authored Date: Patient: ANA MARIA EATON Age: 67 years Sex: Female : 1955 Associated Diagnoses: None Author: Cassidy Schneider Histories Previously met with patient and methadone was increased to 80mg daily. She has received this for a few days now. Met with patient this morning. She reports that so far the 80mg dose has been adequate for her, lasting all day and night. She would like to keep her dose as is. ROS: some achiness Assessment Mental Status Exam General appearance: casual. Eye contact: WNL. Musculoskeletal: muscle strength/tone normal, motor activity calm. Manner/behavior: cooperative. Speech: fluent, unimpaired. Mood: euthymic. Affect: appropriate. Thought content: normal. Reliability: good historian. Judgment: intact. Insight: intact. Memory: intact. Attention: intact. Fund of knowledge: intact. Impression and Plan Opioid use disorder: Pt endorsing the 80mg is adequate for her so far and would like to remain on this. Can continue methadone at 80mg daily. Pt likely discharging within in the next day or 2 to [facility] - they are able to dose methadone on their own at this facility. If plans change and pt ends up going to a different facility that would require guest dosing, please reach out to Addiction Coordinator, Carmen Johnson, for arrangement. Recommendations communicated via cortext to Dr Young Alvarado Addiction??Service will sign off at this time. Thank you for allowing us to participate in the careof this patient. Please contact me with any questions or concerns. Consult note * Susan Menendez MD: MODIFY, PERFORM, MODIFY Event Display: Consultation Note Authored Date: Patient: ??ANA MARIA EATON ? Age:??67 Years?Sex:??Female?:??1955?? Chief Complaint/Reason for Consultation Reason for consult:??Brain mass, history of lung cancer Consulting physician:Aedla Mujica History of Present Illness 67-year-old woman with a history of squamous cell lung cancer s/p lobectomy, heroin use [facility] weakness, confusion found to have frontal lobe mass and transferred to [facility]. ??On admission, MRI revealed 3.3 cm enhancing right frontal mass with significant surrounding edema, 9 mm right to left midline shift Neurosurgery on board s/p right frontal craniotomy for resection of brain tumor, frozen section consistent with metastatic adenocarcinoma. ?? Patient appears to be confused,??daughter mentions that??she has had worsening??behavioral changes??including tangential speech,??complaints of headache??and??left-sided??body weakness??worsened for the past 1 week. MRI s/p biopsy/resection decrease in mass effect. ?? She follows with [facility] for surveillance of stage I A2 squamous cell lung cancers/p robotic left lower lobectomy August [address] scan from 05/27/2022 revealed stable leftlower lobectomy without thoracic lymphadenopathy however she had adjacent solid nodules in the posterior medial right lower lobe with a suspicion of indolent neoplasm, a few focal increase in size. Review of Systems Could not be obtained however,??lanes of continuous headache?? Objective Vital Signs?? Temperature: 97.9 DegF (10/28/22 08:00:00) Temperature Route: Oral (10/28/22 08:00:00) Pulse Rate:??52 bpm??Low (10/27/22 13:30:00) Heart Rate Monitored:??50 bpm??Low (10/28/22 11:00:00) Respiratory Rate: 16 br/min (10/28/22 11:53:00) Vented: No (10/28/22 11:00:00) Systolic Blood Pressure:??143 mm Hg??High (10/28/22 11:00:00) Diastolic Blood Pressure:??86 mm Hg??High (10/28/22 11:00:00) Blood pressure sites: Arm, left (10/28/22 11:00:00) Mean Arterial Pressure: 97 mm Hg (10/27/22 13:30:00) Pulse Pressure: 57 mm Hg (10/28/22 11:00:00) Oxygen Saturation: 98 % (10/28/22 11:00:00) Liters per Minute: 2 L/min (10/27/22 22:00:00) Mode of Delivery (Oxygen): Room air (10/28/22 11:00:00) Early Warning Score: 3 (10/27/22 15:42:06) ? Basic ADLs Activity Assistance: Maximum assistance (10/28/22) Ambulatory devices needed: None (10/27/22) Feeding Assistance: Maximum assistance (10/28/22) Hygiene: Total, Mouth care, Skin care (10/28/22) ? Mobility & Ambulation Level Mobility & Ambulation Level Activity Assistance: Maximum assistance (10/28/22) Activity Status ADL: Complete bedrest, Repositioned in bed every two hours (10/28/22) Ambulatory devices needed: None (10/27/22) Range of Motion LLE: Active (10/28/22) Range of Motion LUE: Passive (10/28/22) Range of Motion RLE: Active (10/28/22) Range of Motion RUE: Active (10/28/22) Repositioning: Assist (10/28/22) ? Physical Exam General: 67-year-old lady resting in bed,??NAD, left facial droop Head:??Normocephalic, atraumatic EENT: PERRLA Respiratory: Bilateral clear breath sounds??anteriorly Cardiac: S1/S2, regular rate and rhythm Abdomen:??Soft, nondistended,??nontender,??normoactive bowel sounds Extremities:??No pitting edema, warm to touch Neuro: AAOx2,??left hemiparesis??3/5??left upper and lower extremity, 5/5 on the right??upper and lower extremity Skin:??Appears normal ECOG??3/4 ?? Assessment/Plan 67-year-old lady with a past medical history of??squamous cell lung cancer stage I A2??s/p??lobectomy August 2020??at outside hospital??is admitted with??left- sided weakness??and confusion.?? On admission, she was found to have??right??frontal mass??significant adenoma??measuring 3.3 cm. ?? Suspected metastatic cancer, history of??squamous cell carcinoma??of left lung s/p lobectomy New brain mass??right frontal lobe 3.3 cm, s/p??resection??(frozen??suspected metastatic??adenocarcinoma) -Request??CT??chest, abdomen, pelvis with contrast -Await??pathology? Patient's daughter did mention about??possibly??not going chemotherapy route??as it does not align with patient's wishes. Patient was seen, examined and discussed with Dr Yoder. ?? Histories Allergies Allergies ?(Active and Proposed Allergies Only) Rubber? (Severity: Unknown severity, Onset: Unknown) Zoloft? (Severity: Unknown severity, Onset: Unknown) ?Reactions: O/E - Parkinsonian tremor Other Environmental Allergy? (Severity: Unknown severity, Onset: Unknown) ?Comments: ELASTIC ? 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 Past Surgical History Colonoscopy: 04/19/19 Esophagogastroduodenoscopy and biopsy: 04/19/19 Colonoscopy: 07/17/15 Upper gastrointestinal endoscopy including esophagus, stomach, and either the duodenum and/or jejunum as appropriate; with biopsy, single or multiple: 06/07/12 Colonoscopy: 05/31/10 section Colonoscopy - Dr. Smith 05/2010- Tubular Adenoma - REPEAT 2016, 5 years left lung nodule removed ? Social History Alcohol Details:??Use: Current. ??Frequency: 1-2 times per year. Employment/School Details:??Status: Retired. 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 Exercise Details:??Self assessment: Poor condition. ??Regular exercise: No. Home/Environment Details:??Living situation: Home/Independent. ??Lives with: Alone. Nutrition/Health Details:??Diet: Regular. Sexual Details:??Sexually involved in last 6 months: Yes. ??Sexual orientation: Heterosexual. ??Preferred pronoun: She/her. ??Ever been sexually involved? Yes. ??Number of partners in last 6 months: 1. Substance Abuse Details:??Use: Past. ??Type: Heroin, Prescription medications. ??Other: on suboxone. Tobacco Details:??Use: Smoker, current status unknown. ??Other: Patient currently smoking 5-7 cig per day. ??Tobacco use times per day: 50 years <1ppd. Electronic Cigarette/Vaping Details:??Electronic Cigarette Use: Former use, quit more than 90 days ago. ? Medications Home Medications Albuterol (Ventolin HFA 108 mcg/inh inhalation aerosol with adapter)?2?puff(s)?Inhalation?4 times a day?as needed? NEEDED FOR WHEEZING Alendronate (alendronate 70 mg oral tablet)?1?tab(s)?By Mouth?Every week Calcium And Vitamin D Combination (calcium-vitamin D 600 mg-400 intl units oral tablet)?1?tab(s)?By Mouth?2 times a day with meals Clonazepam (clonazePAM 0.125 mg oral tablet, disintegrating)?See Instructions?1 tablet By Mouth Daily at bedtime. Fluticasone (Flovent HFA 220 mcg/inh inhalation aerosol)?2?puff(s)?Inhalation?2 times aday?AND THROAT AFTER EACH USE. Fluticasone Nasal (fluticasone 50 mcg/inh nasal spray)?See Instructions?USE 1 SPRAY IN EACH NOSTRIL DAILY Lisinopril (lisinopril 10 mg oral tablet)?1?tablet?By Mouth?Daily Melatonin (melatonin 3 mg oral tablet)?2?tab(s)?6?Milligram?By Mouth?Daily at bedtime?as needed?Insomnia Methadone?70?Milligram?By Mouth?Daily Nicotine (nicotine 2 mg oral transmucosal lozenge)?1?lozenge(s)?2?Milligram?By Mouth?Every 2 hours Omeprazole (omeprazole 20 mg oral enteric coated capsule)?1?capsule?20?Milligram?By Mouth?Daily ? Inpatient Medications Medications (21) Active SCHEDULED: (9) Acetaminophen 325 mg Tablet (Tylenol 325 mg oral tablet) ??650 mg, By Mouth, Every 6 hours ceFAZolin 1 Gm Inj (Ancef Inj) ??1 Gm, IV Push, Every 8 hours Dexamethasone 4 mg/mL Inj (Decadron Inj) ??4 mg 1 mL, IV Push Slowly, Every 8 hours diphenhydrAMINE 50 mg/mL Inj (Benadryl Inj) ??25 mg 0.5 mL, IV Push, Once Levetiracetam 100mg/ml IVPB (Keppra Inj) ??500 mg, IV Push Slowly, Every 12 hours Methadone 10mg/5mL UD Solution (Methadone Liquid) ??70 mg 35 mL, By Mouth, Every 24 hours Nicotine 21 mg / 24 hour Patch (Nicotine Topical) ??21 mg, Topically, Daily Pantoprazole 40 mg Inj (Pantoprazole Inj) ??40 mg, IV Push Slowly, Every 12 hours Remove Patch (Remove ??Patch) ??1 each, Topically, Daily CONTINUOUS: (1) NICARdipine 2.5 mg/mL Cont IV 25 mg + NaCL 0.9% (250 mL) Cont IV 250 mL (NiCARDipine Cont IV 25 mg + NaCL 0.9% for Titration 250 mL) ??250 mL, IV Infusion PRN: (11) Albuterol 90mcg/Inhalation Inhaler HFA (Ventolin 90 mcg Inhaler) ??180 mcg 2 puffs, Inhalation, 4 times a day Bisacodyl 10 mg Suppository (Bisacodyl Supp) ??10 mg 1 supp, Rectally, 2 times a day HYDROmorphone 0.5 mg/0.5 mL Inj Syringe (Dilaudid Inj) ??0.5 mg 0.5 mL, IV Push Slowly, Every 4 hours HYDROmorphone 1 mg/mL Inj Syringe (Dilaudid Inj) ??1 mg 1 mL, IV Push Slowly, Once Magnesium Hydroxide 8% Susp UD (Milk of Magnesia Liquid) ??30 mL, By Mouth, 2 times a day Melatonin 3 mg Tablet (Melatonin Tablet) ??3 mg, By Mouth, Daily at bedtime NaCl 0.9% Flush 3ml (NaCL 0.9% Flush) ??3 mL, IV Push, Every 8 hours nalOXONE ??400mcg/mL Inj (nalOXONE Inj) ??0.2 mg 0.5 mL, IV Push, Every 5 minutes Nicotine Inhaler (Nicotrol Inhaler) ??1 inhalation, Inhalation, Every hour OxyCODONE 5 mg IR Tablet (oxyCODONE 5 mg oral tablet) ??5 mg, By Mouth, Every 6 hours Senna 8.6 mg / Docusate 50 mg tablet (Docusate/Senna Tablet) ??1 tablet, By Mouth, 2 times a day ? Results Recent Labs BLOOD COUNT & DIFF WBC 13.5 k/mm3 (High)?? 10/28/2022 05:11 RBC 4.65 m/mm3 ()?? 10/28/2022 05:11 Hgb 14.2 Gm/dL ()?? 10/28/2022 05:11 Hct 43.1 % ()?? 10/28/2022 05:11 MCV 92.7 femtoliters ()?? 10/28/2022 05:11 MCH 30.5 pg ()?? 10/28/2022 05:11 MCHC 32.9 g/dL (Low)?? 10/28/2022 05:11 Platelet Count 154 k/mm3 ()?? 10/28/2022 05:11 RDW-SD 44.3 femtoliters ()?? 10/28/2022 05:11 MPV 11.3 femtoliters ()?? 10/28/2022 05:11 Nucleated RBC (Automated) 0.0 #/100 WBC'S ()?? 10/28/2022 05:11 Abs. NRBC 0.0 k/mm3 ()?? 10/28/2022 05:11 Abs. Neut 11.6 k/mm3 (High)?? 10/28/2022 05:11 Abs. Lymph 1.0 k/mm3 ()?? 10/28/2022 05:11 Abs. Fannin 0.8 k/mm3 ()?? 10/28/2022 05:11 Abs. Eo 0.0 k/mm3 ()?? 10/28/2022 05:11 Abs. Baso 0.0 k/mm3 ()?? 10/28/2022 05:11 Neut % 86.5 % (High)?? 10/28/2022 05:11 Lymph % 7.2 % (Low)?? 10/28/2022 05:11 Fannin % 5.7 % ()?? 10/28/2022 05:11 Eos % 0.0 % ()?? 10/28/2022 05:11 Baso % 0.1 % ()?? 10/28/2022 05:11 Imm Gran 0.5 % ()?? 10/28/2022 05:11 Abs. Imm Gran 0.1 k/mm3 ()?? 10/28/2022 05:11 ?? CHEM GENERAL Sodium 144 mmol/L ()?? 10/27/2022 18:48 Potassium 3.8 mmol/L ()?? 10/27/2022 18:48 Chloride 110 mmol/L (High)?? 10/27/2022 18:48 Bicarbonate Level 25 mmol/L ()?? 10/27/2022 18:48 Anion Gap 9 ()?? 10/27/2022 18:48 Glucose, POC 138 mg/dL (High)?? 10/27/2022 18:50 BUN 10 mg/dL ()?? 10/27/2022 18:48 Creatinine-Blood 0.6 mg/dL ()?? 10/27/2022 18:48 Estimated GFR Creatinine 97 ML/MIN/1.73 M2 ()?? 10/27/2022 18:48 Phosphorus 2.8 mg/dL ()?? 10/27/2022 18:48 Magnesium 2.0 mg/dL ()?? 10/27/2022 18:48 ? * Paresh MARINELLI, Stan Frost: PERFORM Event Display: Consultation Note Authored Date: I saw and evaluated the patient. I reviewed the fellow's note and agree with their history, findings and recommendations * Cassidy Schneider: PERFORM Event Display: Consultation Note Authored Date: Patient: ??ANA MARIA EATON ? Age:??67 Years?Sex:??Female?:??1955?? Reason for Consultation Addiction Med Consult - hx of opioid use, on methadone, ongoing pain Requested by??Dr Sukumar Burks History of Present Illness Ana Maria Eaton is a 67 yo female with a PMHx of lung cancer s/p lobectomy, opioid use disorder on methadone, anxiety, HCV. She was admitted 10/26 as a transfer from [facility] - pt initially present with LLE weakness and confusion, imaging with frontal lobe mass. Concerning for metastasis for primary lung cancer.??She was transferred here for further management. Pt underwent right frontal craniotomy to resect the mass yesterday. Patients methadone dosing was confirmed at 70mg and resumed here. Currently pt is also on [id number] and dilaudid 0.5mg IV PRN for acute pain control. ?? Attempted to meet with pt this morning. Pts daughter, Magda, present and had just arrived a few minutes before. She expresses concern that??her mother has continued to use heroin, and??last she knew??her last use was reported to be??Monday, but she is not sure. Her daughter says that Ana Maria typically uses??heroin nasally, but has maybe??injected a few times. Attempted to wake??pt up??multiple times??by calling her name and speaking loudly, as well as shaking patients shoulder, rubbing her arm. Unable to get pt awake for any significant amount of time to answer questions. Magda tried as well, hoping a familiar voice might be??more effective, but results were the same. ?? Review of Systems Unable to obtain due to clinical condition Physical Exam Vitals & Measurements T:??97.9?F?? TMIN:??96.8?F?? TMAX:??98?F?? HR:??46??(Monitored)?? RR:??18?? BP:??135/81?? SpO2:??97%?? WT:??57.8??kg?? General:??well developed, well nourished,??appears to be stated age. Appears??comfortable??-??no distress,??no diaphoresis.??No obvious rashes,??no jaundice.??Breathing is??even and unlabored. Dressing to right scalp intact. Mental Status Exam: Appearance:??casual? Eye contact:??eyes closed Motor activity:??calm, no aberrant movements? Judgment:??unable to assess Thought process:??unable to assess Assessment/Plan Opioid dependence (F11.20):??. Patients methadone has been resumed here at 70mg daily. No EKG has been obtained, would check this to ensure QTc is <500ms. ?? Pt apparently was easily awoken earlier this morning by the primary team, however was unable to gether awake later this morning. She??only received??0.5mg dilaudid dose in between that time. ?? Since pts mental status??is not currently??stable, would hold off on increasing the methadone any further.?? It is long acting and can end up prolonging or worsening confusion and sedation, and because of thehalf life, can prove more difficult to manipulate if acute issues arise. ?? However, could consider splitting the methadone dose starting tomorrow, as that can help pain levels somewhat throughout the day. Methadone works best on pain for about 8 hrs after administration.?? Starting tomorrow, could try methadone 23mg PO??q 8 hrs. If patient needs to be switched to IV for easier administration, dosing would become 11.5mg q 8 hrs. ?? For now, while mental status is waxing and waning, would focus on adjusting the shorter acting medications for pain such as the oxycodone and dilaudid if needed. However it does appear pt was quite somnolent after receiving the 0.5mg dilaudid dose this morning, so would monitor this closely. If further input is needed regarding acute pain control, please reach out to the Acute Pain Service. ?? Recommendations communicated via cortext to Dr Burks Addiction??Service will continue to follow with this patient. Thank you for allowing us to participate in the care of this patient. Please contact me with any further questions or concerns. ?? 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 Age at leaving school - ged ASCUS [place] respiration: see 05/25/11 Sleep Report Clubbing Drug abuse: Suboxone via [facility] Emphysema of lung: mixed emphysema/UIP Esophageal reflux (GERD) JASON (generalized anxiety disorder) Hep C: Cleared without treatment HPV: Positive in 07/15; 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, negative in 10/16 Hypertension Lung cancer Lung nodules Major depressive disorder, [facility] at [facility] Opioid use disorder Osteoporosis Pain in finger of right hand Palpitations Pelvic mass Resting tremor Tobacco abuse Tubular adenoma of colon Procedure/Surgical History ???Colonoscopy (04/19/2019)???Esophagogastroduodenoscopy and biopsy (04/19/2019)???Colonoscopy (07/17/2015)???Upper gastrointestinal endoscopy including esophagus, stomach, and either the duodenum and/or jejunum as appropriate; with biopsy, single or multiple (06/07/2012)???Colonoscopy (05/31/2010)??? section???Colonoscopy - Dr. Smith 05/2010- Tubular Adenoma - REPEAT 2016, 5 years???left lung nodule removed Medications Inpatient Ancef Inj, 1 Gm, IV Push, Every 8 hours Benadryl Inj, 25 mg= 0.5 mL, IV Push, Once Bisacodyl Supp, 10 mg= 1 supp, Rectally, 2 times a day, PRN Decadron Inj, 4 mg= 1 mL, IV Push Slowly, Every 8 hours Dilaudid Inj, 0.5 mg= 0.5 mL, IV Push Slowly, Every 4 hours, PRN Dilaudid Inj, 1 mg= 1 mL, IV Push Slowly, Once, PRN Docusate/Senna Tablet, 1 tablet, By Mouth, 2 times a day, PRN Keppra Inj, 500 mg, IV Push Slowly, Every 12 hours Melatonin Tablet, 3 mg, By Mouth, Daily at bedtime, PRN Methadone Liquid, 70 mg= 35 mL, By Mouth, Every 24 hours Milk of Magnesia Liquid, 30 mL, By Mouth, 2 times a day, PRN NaCL 0.9% Flush, 3 mL, IV Push, Every 8 hours, PRN nalOXONE Inj, 0.2 mg= 0.5 mL, IV Push, Every 5 minutes, PRN NiCARDipine Cont IV 25 mg + NaCL 0.9% for Titration 250 mL Nicotine Topical, 21 mg, Topically, Daily Nicotrol Inhaler, 1 inhalation, Inhalation, Every hour, PRN oxyCODONE 5 mg oral tablet, 5 mg, By Mouth, Every 6 hours, PRN Pantoprazole Inj, 40 mg, IV Push Slowly, Every 12 hours Remove Patch, 1 each, Topically, Daily Tylenol 325 mg oral tablet, 650 mg, By Mouth, Every 6 hours Ventolin 90 mcg Inhaler, 180 mcg= 2 puffs, Inhalation, 4 times a day, PRN Home alendronate 70 mg oral tablet, 1 tablet, By Mouth, Every week calcium-vitamin D 600 mg-400 intl units oral tablet, 1 tablet, By Mouth, 2 times a day with meals clonazePAM 0.125 mg oral tablet, disintegrating, See Instructions Flovent HFA 220 mcg/inh inhalation aerosol, 2 puffs, Inhalation, 2 times a day fluticasone 50 mcg/inh nasal spray, See Instructions lisinopril 10 mg oral tablet, 1 tablet, By Mouth, Daily melatonin 3 mg oral tablet, 6 mg= 2 tablet, By Mouth, Daily at bedtime, PRN, 2 refills Methadone, 70 mg, By Mouth, Daily nicotine 2 mg oral transmucosal lozenge, 2 mg= 1 lozenge, By Mouth, Every 2 hours, 11 refills omeprazole 20 mg oral enteric coated capsule, 20 mg= 1 capsule, By Mouth, Daily Stiolto Respimat 60 ACT 2.5 mcg-2.5 mcg/inh inhalation aerosol Ventolin HFA 108 mcg/inh inhalation aerosol with adapter, 2 puffs, Inhalation, 4 times a day, PRN Allergies Other Environmental Allergy Rubber Zoloft??(O/E - Parkinsonian tremor) Social History Alcohol Use: Current. Frequency: 1-2 times per year. Electronic Cigarette/Vaping Electronic Cigarette Use: Former use, quit more than 90 days ago. Employment/School Status: Retired. 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 Exercise Self assessment: Poor condition. Regular exercise: No. Home/Environment Living situation: Home/Independent. Lives with: Alone. Nutrition/Health Diet: Regular. Sexual Sexually involved in last 6 months: Yes. Sexual orientation: Heterosexual. Preferred pronoun: She/her. Ever been sexually involved? Yes. Number of partners in last 6 months: 1. Substance Abuse Use: Past. Type: Heroin, Prescription medications. Other: on suboxone. Tobacco Use: Smoker, current status unknown. Other: Patient currently smoking 5-7 cig per day. Tobacco use times per day: 50 years <1ppd. Family History Cancer of lung: Mother. 13-JUL-2013 07:21:16<$>: Father. Diabetes mellitus type II: Father. Heart attack: Mat. Grandmother. Hyperlipidemia: Father. Hypertension: Father. Immunizations Vaccine Date Status [id number] 12y+ bivalent booster vax 05/11/2022 Recorded influenza virus vaccine, inactivated 02/16/2022 Recorded SARS-CoV-2 mRNA ([id number]) vax 12/14/2021 Given SARS-CoV-2 mRNA ([id number]) vax 09/14/2021 Given SARS-CoV-2 (COVID-19) mRNA BNT-162b2 vac 03/23/2021 Recorded influenza virus vaccine, inactivated 02/18/2021 Recorded SARS-CoV-2 (COVID-19) mRNA BNT-162b2 vac 08/04/2020 Recorded SARS-CoV-2 (COVID-19) mRNA BNT-162b2 vac 07/14/2020 Recorded zoster vaccine, inactivated 06/30/2020 Recorded zoster vaccine, inactivated 02/23/2020 Recorded Comments : [facility] influenza virus vaccine, inactivated 02/23/2020 Recorded Comments : [facility] Zoster Vaccine Live 02/23/2020 Recorded Influenza Virus Vaccine (oldterm) 02/23/2020 Recorded tetanus-diphtheria toxoids (Td) 02/08/2019 Given influenza virus vaccine, inactivated 02/08/2019 Given influenza virus vaccine, inactivated 02/08/2018 Given influenza virus vaccine, inactivated 06/08/2017 Recorded Zoster Vaccine Live 05/23/2016 Recorded influenza virus vaccine, inactivated 02/25/2016 Given influenza virus vaccine, inactivated 03/19/2015 Given influenza virus vaccine, inactivated 02/18/2014 Given influenza virus vaccine, inactivated 03/26/2013 Given influenza virus vaccine, inactivated 02/20/2012 Given Comments : vis 12/2011 Tet/Diphth/Acel, Pertussis (oldterm) 02/20/2012 Given Comments : vis 05/31/11 pneumococcal 23-valent vaccine 02/16/2011 Given Comments : vis given Influenza Vaccine (oldterm) 01/27/2011 Given Comments : vis given Influenza Inactive (IM) (oldterm) 08/23/2010 Given Comments : vis tetanus-diphtheria toxoids (Td) 08/23/2010 Given Comments : vis 03/25/08 Influenza Vaccine (oldterm) 06/02/2009 Given Comments : vis influ virus vac, H1N1, inactive(oldterm) 06/02/2009 Given Comments : vis influenza virus vaccine, inactivated 04/23/2008 Given * Eric Martinez: PERFORM, MODIFY, SIGN, VERIFY Qamar Macias MD: SIGN Event Display: Consultation Note Authored Date: [id number] Patient: ANA MARIA EATON Age: 67 years Sex: Female : 1955 Associated Diagnoses: None Author: Eric Martinez Visit Information Brain mass Day: LOS 0 days. History of Present Illness This is a 67-year-old female with past medical history significant for lung cancer status post showed right lobe resection no reported chemo or radiation therapy, heroin abuse on methadone, COPD, GERD, tubular adenoma of colon, hypertension, hepatitis C, osteoporosis. Patient was transferred from outside facility after presenting with left-sided weakness for approximately 1 week. Patient underwent head CT which demonstrated right frontal mass this was followed up by MRI with and without contrast which confirmed findings. Patient was subsequently transferred to [facility] for further evaluation and treatment. No reported anticoagulation or antiplatelet therapy. She reports blurry vision indicating that she is scheduled to undergo cataract procedures in the near future. 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 Rob / SNOMED CT 917597331 / Confirmed Palpitations / SNOMED CT 721858673 / Confirmed Pain in finger of right hand / SNOMED CT 80752565 / Confirmed Osteoporosis / SNOMED CT 761010587 / Confirmed Opioid use disorder / SNOMED CT 947488158 / Confirmed Lung nodules / SNOMED CT 2447494368 / Confirmed Lung cancer / SNOMED CT 583025300 / Confirmed Hypertension / ICD-9-CM 997.91 / Confirmed HPV: Positive in 07/15; 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, negative in 10/16 / SNOMED CT 959429622 / Confirmed JASON (generalized anxiety disorder) / SNOMED CT 09124906 / Confirmed Esophageal reflux (GERD) / ICD-9-CM 530.81 / Confirmed Drug abuse: Suboxone via [facility] / SNOMED CT 66693728 / Confirmed Clubbing / SNOMED CT 8341916 / Confirmed Hep C: Cleared without treatment / SNOMED CT 774343644 / Confirmed Cheko-León respiration: see 05/25/11 Sleep Report / SNOMED CT 132549375 / Confirmed ASCUS / SNOMED CT 11845405 / Confirmed Age at leaving school - ged / SNOMED CT 150886189 / Confirmed Allergies Allergic Reactions (Selected) Severity Not Documented Other Environmental Allergy- No reactions were documented. Rubber- No reactions were documented. Nonallergic Reactions (Selected) Severity Not Documented Zoloft- O/e - parkinsonian tremor. Social History Social History Alcohol Details: Use: Current. Frequency: 1-2 times per year. Employment/School Details: Status: Retired. 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 Exercise Details: Self assessment: Poor condition. Regular exercise: No. Home/Environment Details: Living situation: Home/Independent. Lives with: Alone. Nutrition/Health Details: Diet: Regular. Sexual Details: Sexually involved in last 6 months: Yes. Sexual orientation: Heterosexual. Preferred pronoun: She/her. Ever been sexually involved? Yes. Number of partners in last 6 months: 1. Substance Abuse Details: Use: Past. Type: Heroin, Prescription medications. Other: on suboxone. Tobacco Details: Use: Smoker, current status unknown. Other: Patient currently smoking 5-7 cig per day. Tobacco use times per day: 50 years <1ppd. Electronic Cigarette/Vaping Details: Electronic Cigarette Use: Former use, quit more than 90 days ago. . Review of Systems + blurred vision +weakness LUE and LLE Physical Examination Physical Exam GENERAL: In no apparent distress HEENT: PERRL,Moist mucous membrane. Neck supple. Trachea midline RESPIRATORY: Equal rise and fall of chest, unlabored ABDOMEN/GI: Non-distended, soft, non-tender, normal bowel sounds EXTREMITIES: No pitting edema COMMUNITY DEVELOPMENT OFFICER: Alert and oriented x 3 -eye open spontaneously - Speech clear fluent and appropriate - EOMI -Left facial droop -Following commands - Moving all extremities -Strength 5/5 right upper and lower extremity LUE Left UE -Steel Erector Apprentice:3/5 , Bicep: 3+/5 , Tricep: 4+/5 , Deltoid: 3/5 - LUE: Hip flexion:4/5 , Knee extension: 5/5 , DF:5/5 ,PF: 5/5 -Sensation grossly intact GCS:15 PSYCHIATRIC: Calm and co-operative HEME: No lymphadenopathy. SKIN: Warm and dry. Impression and Plan COMPREHENSIVE PLAN 67-year-old female history of lung cancer status post resection presented with left upper and lowerextremity weakness head CT demonstrated right frontal mass confirmed by MRI from outside facility. Recommendations Stat MRI with and without contrast Stealth sequence N.p.o. after midnight Medical clearance Type and screen INR Informed consent obtained patient's daughter and sister was present all questions was answered in asystematic fashion Any questions page [id number] Note * Dahlia Espinoza RN: PERFORM Event Display: Discharge/Transfer Note Hospital Authored Date: [id number] Nursing Discharge Note Entered On: 11/04/2022 17:55 EDT Performed On: 11/04/2022 17:54 EDT by Dahlia Espinoza RN Nursing Discharge Note 2 Discharge Time : 11/04/2022 17:55 EDT Discharge Level of Care at Discharge : [facility] facility Discharge Nursing Homes/Rehab Facilities : [facility] Patient Left Unit Via : Ambulance Patient Accompanied Off Unit with : Ambulance/Chair Van Personnel Handover Given to Transport Personnel : Yes DC Instructions Provided & Signed by Pt : Yes Patient Understands D/C Instructions : Yes Verbalized Understanding of D/C Plan By : Patient Patient Instructions Discharge Signed : Yes Did Pt have Specialty Bed or Wound Vac : No Alexis HOLM, Dahlia Ruffin - 11/04/2022 17:54 EDT * Young MARINELLI, Jenny: PERFORM, MODIFY Event Display: Discharge/Transfer Note Hospital Authored Date: [id number] Patient: ??BOVAT, HILDRED ? Age:??67 Years?Sex:??Female?:??1955?? Patient Information Discharge Location: D5A Primary Care Physician: Mavis Allen Admit Date/Time: 10/26/22 15:34 Discharge Disposition Discharge Disposition: ?? 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 _ Discharge Medications Acetaminophen (Tylenol 325 mg oral tablet)?650?Milligram?By Mouth?Every 6 hours?as needed?Pain , Mild Albuterol (Ventolin HFA 108 mcg/inh inhalation aerosol with adapter)?2?puff(s)?Inhalation?4 times a day?as needed? NEEDED FOR WHEEZING Alendronate (alendronate 70 mg oral tablet)?1?tab(s)?By Mouth?Every week Calcium And Vitamin D Combination (calcium-vitamin D 600 mg-400 intl units oral tablet)?1?tab(s)?By Mouth?2 times a day with meals Dexamethasone (dexamethasone 2 mg oral tablet)?See Instructions?2 tablets by mouth twice daily on tablet by mouth twice daily on 11/05/22 and tablet by mouth daily on 11/07/22 and 11/08/22Then stop Fluticasone (Flovent HFA 220 mcg/inh inhalation aerosol)?2?puff(s)?Inhalation?2 times aday?AND THROAT AFTER EACH USE. Fluticasone Nasal (fluticasone 50 mcg/inh nasal spray)?See Instructions?USE 1 SPRAY IN EACH NOSTRIL DAILY Lisinopril (lisinopril 10 mg oral tablet)?1?tablet?By Mouth?Daily Melatonin (melatonin 3 mg oral tablet)?2?tab(s)?6?Milligram?By Mouth?Daily at bedtime?as needed?Insomnia Methadone (methadone 10 mg/5 mL oral solution)?40?Milliliter?80?Milligram?By Mouth?Daily before breakfast Nicotine (Nicotrol Inhaler)?1?inhalation?Inhalation?Every hour?as needed?Other?Nicotine Withdrawal Symptoms (NOT to exceed 16 doses per day) Omeprazole (omeprazole 20 mg oral enteric coated capsule)?1?capsule?20?Milligram?By Mouth?Daily ? Medications Started dexamethasone Medications Discontinued none Doses Changed methadone increased to 80mg PCP Follow-Up/Heads-Up please consider mediation management for anxiety- she would like to continue to avoid benzodiazepines pending oncology follow-up, 2 weeks from discharge Future Appointments Monday 8:30 AM EDT ?? Where: [address] [place] [address]- Status: Pending Objective Assessment and Plan ?? Ms Eaton is a 67-year-old woman with history of squamous cell lung cancer status post left lower lobectomy 08/2020, heroin use on methadone, hypertension, anxiety, tobacco use disorder, COPD, GERD, and hepatitis C who was admitted to [facility] with left lower extremity weakness and confusion for 1 week prior to presentation, and found to have right frontal lobe mass and subsequently transferred to [facility] on 10/26/2022. The patient underwent right frontal craniotomy for resection of brain tumor on 10/27/2022 and postoperatively was admitted to the SICU.. The patient's left-sided weakness has markedly??improved compared to preoperatively. She is currently on a Decadron steroid taper and completed oral Keppra x 7 days for seizure prophylaxis.??Blood pressure has improvedand she has been tapered off nicardipine drip, currently on oral medications. She??is ready for discharge to?rehab. ?? Metastatic squamous cancer to brain, known lung primary Previously had early stage squamous cell cancer of the lung treated with lobectomy only, no medicaltreatment Initial frozen path showed adecnocarcinoma, but final path shows metastatic squamous cell, presumably from known prior lung malignancy Patient is doing well with improved mentation??and marked improvement in left- sided weakness.?? CT chest/abdomen/pelvis done for staginmm pulmonary nodule of RUL 6mm pulm nodule of KIANNA + smaller nodules CBD dilation L ovarian nodularity- visualized better on MR of 04/2021 ?? Plan: -Follow-up with oncology, they will schedule appointment (Dr Yoder) -CBD dilation and ovarian abnormality were previously visualized, ovarian abnormality was followed by director prison-onc with no intervention needed- both likely unrelated to current malignancy, but could consider further evaluation as needed -Continue Decadron steroid taper (??4 mg every 12 hours x2 days (end date 11/04),??2 mg every 12 hours x2 days,??2 mg daily x2 days)- until 11/08/22 -Completed Keppra x 7 days postoperatively -Keep??craniotomy incision open to air, may shower and pat dry, no lotions or creams to area. -neurosurgery f-u scheduled for 11/09/22 at 830am for staple removal ?? Hypertension (I10):?? Blood pressure??better controlled Renal function is stable. ?? Plan: -Continue lisinopril - can increase to 20mg if needed as outpatient ?? JASON (generalized anxiety disorder) (F41.1) Major depressive disorder (F33.9):??Mood is stable.??No SI. She is not currently on psychiatric medication. Tapered off clonazepam earlier this year Having situational anxiety ?? Plan: -avoid benzodiazepines -will need PCP f-u??for ongoing treatment as needed ?? Emphysema of lung: mixed emphysema/UIP (J43.9):?? She is not currently bronchospastic. No hypoxia. Continue home inhalers Albuterol MDI will be ordered as needed for bronchospasm. Continue Nicotrol inhaler??for cravings. ?? Esophageal reflux (GERD) (K21.9):??Continue PPI as prescribed. ?? Opioid dependence (F11.20):?? The patient has been seen by the addiction medicine service. She is currently receiving??methadone 80 mg daily. Continue scheduled acetaminophen. ??rehab will be able to rx methadone upon discharge there, will need last dose letter to resume outpatient methadone once she has completed rehab ? Code Status:??FULL ? Vital Signs?? Temperature: 98.2 DegF (11/04/22 08:00:00) Temperature Route: Oral (11/04/22 08:00:00) Pulse Rate: 82 bpm (11/04/22 08:00:00) Respiratory Rate: 18 br/min (11/04/22 08:00:00) Systolic Blood Pressure: 133 mm Hg (11/04/22 08:00:00) Diastolic Blood Pressure:??95 mm Hg??High (11/04/22 08:00:00) Blood pressure sites: Arm, right (11/04/22 08:00:00) Mean Arterial Pressure: 96 mm Hg (11/03/22 15:21:00) Pulse Pressure: 35 mm Hg (11/03/22 15:21:00) Oxygen Saturation: 99 % (11/04/22 08:00:00) Mode of Delivery (Oxygen): Room air (11/04/22 08:00:00) Early Warning Score: 0 (06/30/23 08:37:50) ? . Physical Exam Gen- in NAD, alert HEENT- mucous membranes moist; surgical incision with small amount of dried blood, otherwise intact Resp- CTAB, no wheezes, rales, rhonchi, no accessory muscle use Cardiac- RRR, no murmurs rubs or gallops. Abd- +BS, soft, NT/ND Ext- no edema; 2+ cap refill Neuro- alert, oriented x3. CN intact. 5-/5 strength in left upper extremity, 5/5 in right UE and bilateral LE. Sensation to light touch intact throughout Surgical Procedures Craniotomy Resection Supratentorial Shelby 10/27/2022 14:[address] Macias- neurosurgery Dr Yoder- oncology Pending Results COVID-19 (2019 Novel Coronavirus) PCR ordered on 10/26/2022 Patient Education Titles Your Body's Response to Anxiety?? Discharge Instructions for Craniotomy?? Follow-Up Appointments Added Follow Up ?Time Frame ?Comments Paresh MARINELLI, Stan Frost?2 ?? Weeks Epifanio SMALLWOOD, Mavis Mak?1 month [facility]?11/09/2022 08:30 Patient Instructions Mary, ?? You were admitted for weakness on the left side and confusion- this was caused by a mass on the right side of your brain which was removed. The final pathology came back as metastatic squamous cell carcinoma which likely spread from your previous lung cancer. The oncologist will contact you to schedule follow-up within 2 weeks. You have an appointment with the neurosurgeons to remove your jessica on 11/09/22 at 830am. In the meantime keep the??incision open to air. You may shower and pat it dry, no lotions or creams to area. You will be taking a steroid called dexamethasone to help with swelling in your brain: 4mg twice daily on 11/04/22 2mg twice daily on 11/05 and 11/06/22 2mg daily on 11/07 and 11/08/22 After that you can stop the medication. ?? Please consider discussing long-term treatment of your anxiety with your therapist and primary careprovider. ?? I wish you all the best in your recovery, ?? Jenny Vidal MD Post Discharge Care Rehab Home Health Face to Face ^HomeHealthFTF Results Discharge Labs BLOOD BANK Blood Type A Positive ()?? 10/26/2022 18:38 Antibody Screen Negative ()?? 10/26/2022 18:38 ?? BLOOD COUNT & DIFF WBC 7.2 k/mm3 ()?? 11/04/2022 00:38 RBC 4.66 m/mm3 ()?? 11/04/2022 00:38 Hgb 14.0 Gm/dL ()?? 11/04/2022 00:38 Hct 42.3 % ()?? 11/04/2022 00:38 MCV 90.8 femtoliters ()?? 11/04/2022 00:38 MCH 30.0 pg ()?? 11/04/2022 00:38 MCHC 33.1 g/dL ()?? 11/04/2022 00:38 Platelet Count 183 k/mm3 ()?? 11/04/2022 00:38 RDW-SD 43.3 femtoliters ()?? 11/04/2022 00:38 MPV 10.4 femtoliters ()?? 11/04/2022 00:38 Nucleated RBC (Automated) 0.0 #/100 WBC'S ()?? 11/04/2022 00:38 Abs. NRBC 0.0 k/mm3 ()?? 11/04/2022 00:38 Abs. Neut 3.8 k/mm3 ()?? 11/01/2022 00:53 Abs. Lymph 1.1 k/mm3 ()?? 11/01/2022 00:53 Abs. Fannin 0.3 k/mm3 (Low)?? 11/01/2022 00:53 Abs. Eo 0.0 k/mm3 ()?? 11/01/2022 00:53 Abs. Baso 0.0 k/mm3 ()?? 11/01/2022 00:53 Neut % 73.2 % ()?? 11/01/2022 00:53 Lymph % 21.0 % ()?? 11/01/2022 00:53 Fannin % 5.4 % ()?? 11/01/2022 00:53 Eos % 0.0 % ()?? 11/01/2022 00:53 Baso % 0.0 % ()?? 11/01/2022 00:53 Imm Gran 0.4 % ()?? 11/01/2022 00:53 Abs. Imm Gran 0.0 k/mm3 ()?? 11/01/2022 00:53 ?? CHEM GENERAL Sodium 136 mmol/L ()?? 11/04/2022 00:38 Potassium 4.2 mmol/L ()?? 11/04/2022 00:38 Chloride 101 mmol/L ()?? 11/04/2022 00:38 Bicarbonate Level 23 mmol/L ()?? 11/04/2022 00:38 Anion Gap 12 ()?? 11/04/2022 00:38 Glucose Level 120 mg/dL (High)?? 11/02/2022 00:55 Glucose, POC 138 mg/dL (High)?? 10/27/2022 18:50 BUN 11 mg/dL ()?? 11/04/2022 00:38 Creatinine-Blood 0.5 mg/dL ()?? 11/04/2022 00:38 Estimated GFR Creatinine 102 ML/MIN/1.73 M2 ()?? 11/04/2022 00:38 Calcium 9.1 mg/dL ()?? 11/04/2022 00:38 Calcium, Ionized pH Corrected 1.19 mmol/L ()?? 10/31/2022 09:18 Phosphorus 2.5 mg/dL ()?? 11/04/2022 00:38 Magnesium 2.2 mg/dL ()?? 11/04/2022 00:38 Protein, Total 5.7 Gm/dL (Low)?? 11/01/2022 00:53 Albumin 3.3 Gm/dL (Low)?? 11/01/2022 00:53 AG Ratio 1.4 ()?? 11/01/2022 00:53 Alkaline Phosphatase 34 units/L (Low)?? 11/01/2022 00:53 AST (SGOT) 11 units/L ()?? 11/01/2022 00:53 ALT (SGPT) 10 units/L ()?? 11/01/2022 00:53 Bilirubin, Total 0.4 mg/dL ()?? 11/01/2022 00:53 ? COAG INR 1.1 ()?? 10/26/2022 18:54 Protime (PT) 11.6 seconds (High)?? 10/26/2022 18:54 ?? URINE OTHER Est Creatinine Clearance 82.39 mL/min ()?? 11/04/2022 01:54 ? 35_ minutes spent on discharge * Sera Liao RN: PERFORM, SIGN, VERIFY Event Display: Case Management Discharge Plan Authored Date: [id number] Patient: ANA MARIA EATON Age: 67 years Sex: Female : 1955 Associated Diagnoses: None Author: Sera Liao RN Discharge Plan Case Management Discharge Plan : Case Management Discharge Plan Data 11/04/2022 14:38 EDT Discharge Arranged Transport Date/Time 11/04/2022 17:00 Mode of Transportation Arranged Ambulance Name of Agency [facility] Agency Meteorological Engineer #1 Intake Service Categories #1 Occupational Therapy, Physical Therapy, [facility] Service Start Date and Time #1 11/04/2022 17:00 Service Comments #1 [facility] You will receive PT, OT, and longterm. Name of Person Notified of Transfer Magda, daughter * Nneka Guidry RN: PERFORM Event Display: Patient Education/Instruction Authored Date: [id number] Inpatient Adult Discharge Instructions [address] [id number] Name: ANA MARIA EATON : 1955 Visit: 10/26/2022 15:34:00 Current Date: 11/04/2022 16:26 Account: [id number] Inpatient Adult Discharge Instructions We would like to thank you for allowing us to assist you with your healthcare needs. The following includes patient education materials and information regarding your injury/illness. Our entire staffstrives to provide an excellent experience for our patients and their families. PLEASE ENSURE YOU FOLLOW-UP PER THE INSTRUCTIONS BELOW! ?? YOUR OPINION IS IMPORTANT TO US! Please complete the survey you may receive by mail or email. Your feedback will be used to make improvements to the healthcare experiences of our patients and their families. Surveys are administered by [employer] ?? If further treatment with your primary care physician or another doctor is recommended, it is important for you to keep the appointment. Call your primary care physician or return to the Emergency Department immediately if your condition worsens, fails to improve, or new symptoms develop. If you need to find a doctor, you can call [facility] for a referral at [phone] or toll free at [phone] or log in to [email or web address] ?? You can view and manage your care through the patient portal or by using a health care alivia of your choosing. [employer] is a website that allows you to securely view your medical information including your hospital discharge summary, office visit summaries, medications and follow-up visits. You can also request appointments, renew medications, and request access to your medical information using a health care alivia of your choosing, or just ask a question. You can enroll at [email or web address] or register during your next office visit. You have been discharged from [facility], Patient Care Unit: S3. If you have any questions regarding these instructions after you leave, please call us and we will be happy to assist you. 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 You may have had other tests and procedures not included in this list. Please discuss all test results with your provider. BUN Calcium Level CBC CBC w/ Differential Comprehensive Metabolic Panel Creatinine Electrolytes Glucose Level GLUCOSE POC INR Ionized Calcium Lytes Magnesium Level Phosphorus Level Type and Screen Chest CT W/ Contrast CT Abd/Pelvis W/ IV Contrast Only CT Head/Brain W/O Contrast MRI Brain W+W/O Contrast MRI Brain W/O Contrast Primary Care Provider Epifanio SMALLWOOD, Mavis Mak Advance Directive Health Care Proxy on File Yes - Health Care Proxy Yes - MOLST Caregiver Relationship: Daughter Discharge Vitals Temperature: 98 DegF Height: 154.94 cm Pulse Rate: 82 bpm Weight: 59 kg Respiratory Rate: 18 br/min Body Mass Index: 23.87 kg/m2 Systolic Blood Pressure: 138 mm Hg Body surface area: 1.57 Diastolic Blood Pressure:??86 mm Hg??High ?? Oxygen Saturation: 100 % ?? Studies Pending All tests and labs ordered during this hospital stay have been completed unless listed below. Please discuss all pending results with your provider listed above in these instructions. ?? COVID-19 (2019 Novel Coronavirus) PCR What to do next Instructions From Your Doctor Mary, ?? You were admitted for weakness on the left side and confusion- this was caused by a mass on the right side of your brain which was removed. The final pathology came back as metastatic squamous cell carcinoma which likely spread from your previous lung cancer. The oncologist will contact you to schedule follow-up within 2 weeks. You have an appointment with the neurosurgeons to remove your jessica on 11/09/22 at 830am. In the meantime keep the??incision open to air. You may shower and pat it dry, no lotions or creams to area. You will be taking a steroid called dexamethasone to help with swelling in your brain: 4mg twice daily on 11/04/22 2mg twice daily on 11/05 and 11/06/22 2mg daily on 11/07 and 11/08/22 After that you can stop the medication. ?? Please consider discussing long-term treatment of your anxiety with your therapist and primary careprovider. ?? I wish you all the best in your recovery, ?? Jenny Vidal MD Discharge Orders Scheduled Follow-Up Appointments Monday 8:30 AM EDT ?? Where: [address] [place] [address]- Status: Pending You Need to Schedule the Following Appointments Follow Up with??[facility] When:??11/09/2022 08:30 AM EDT Where: [address] [place] [address] [address] [place] [address]- Professional (1) Follow Up with??Paresh MARINELLI, Stan Frost When:??In 2 weeks Follow Up with??Epifanio SMALLWOOD, Mavis Mak When:??Within 1 month Where: ?? Discharge Medications ANA MARIA EATON :1955 Visit Date:10/26/2022 Medications: Please continue your medications until treatment is completed or stopped by your provider. Medications not listed below should be discontinued. Discuss any questions related to medications with your provider. What How Much When Instructions Next Dose New Acetaminophen (Tylenol 325 mg oral tablet) 650 Milligram Oral Every 6 hours as needed for Pain , Mild as needed New Dexamethasone (dexamethasone 2 mg oral tablet) See instructions 2 tablets by mouth twice daily on 1 tablet by mouth twice daily on and 1 tablet by mouth daily on and Then stop ?? 11/04 PM Changed Methadone (methadone 10 mg/ 5 mL oral solution) 40 Milliliter Oral Daily before breakfast 7 AM Changed Nicotine (Nicotrol Inhaler) 1 inhalation Inhalation Every hour as needed for Other Nicotine Withdrawal Symptoms (NOT to exceed 16 doses per day) ?? as needed Unchanged Albuterol (Ventolin HFA 108 mcg/ inh inhalation aerosol with adapter) 2 puff(s) Inhalation 4 times a day as needed for NEEDED FOR WHEEZING as needed Unchanged Alendronate (alendronate 70 mg oral tablet) 1 tab(s) Oral Every week weekly Unchanged Calcium And Vitamin D Combination (calcium-vitamin D 600 mg-400 intl units oral tablet) 1 tab(s) Oral Two times a day with meals 7/ AM Unchanged Fluticasone (Flovent HFA 220 mcg/ inh inhalation aerosol) 2 puff(s) Inhalation Twice a day AND THROAT AFTER EACH USE. ?? 11/04 PM Unchanged Fluticasone Nasal (fluticasone 50 mcg/ inh nasal spray) See instructions USE 1 SPRAY IN EACH NOSTRIL DAILY ?? 7/1 AM Unchanged Lisinopril (lisinopril 10 mg oral tablet) 1 tab(s) Oral Daily 7/1 AM Unchanged Melatonin (melatonin 3 mg oral tablet) 2 tab(s) Oral Daily at Bedtime as needed for Insomnia as needed Unchanged Omeprazole (omeprazole 20 mg oral enteric coated capsule) 1 capsule Oral Daily 7/1 AM Test Results Below is a partial list of the most recent Laboratory test results done prior to this discharge. You may have had other tests and procedures not included in this list. Please discuss all test resultswith your provider. Est Creatinine Clearance - 82.39 mL/min (11/04/2022) [id number] (10/27/2022) ? ?Surgical Pathology - Patient Name: ANA MARIA EATON
Lab
Patient : 1955 (Age: 67)
Collection Date: 10/27/2022
Accession Date: 10/27/2022
Sign Out Date: 11/03/2022

<br/&g t;Tissue Source:
1:RIGHT FRONTAL TUMOR FOR FS
2:RIGHT FRONTAL TUMOR

Final Diagnosis:
Parts 1-2
Brain, right frontal, biopsy andexcision:
- Metastatic squamous cell carcinoma.
- Immunohistochemical studies are performed; the results are as follows:
Napsin: negative.
TTF-1: negative.
CK7: positive.
p40: positive.
CK20: negative.
Synaptophysin: negative.
INSM1: negative.
Interpretation: Findings support the diagnosis of squamous cell carcinoma. Given clinical history, pulmonary primary is favored.
Sections show a poorly diffe rentiated carcinoma with solid and papillary architecture, nuclear pleomorphism, brisk mitotic activity, and necrosis. Focally, cells mimicking signet ring morphology are present.

An immunostain for PD-L1 was performed by 22C3 antibody, and the result is as follows:

Staining is present in approximately 5% of tumor cells (POSITIVE)

Comment:
These immunohistochemistry and/or in-situ hybridization tests were developed and their performance characteristics determined by the immunohistochemistry and in-situ hybridization laboratories at [facility], [place], [place]. They may not have beencleared or approved by the U.S. Food and Drug Administration (FDA). However, the FDA has determinedthat such clearance or approval is not necessary. These tests are used for clinical purposes. &n bsp;They should not be regarded as investigational or for research.

All immunohistochemical controls are reviewed and show appropriate staining.

Primary Pathologist:Megan Pride M.D.
electronically signed out by: Megan Pride M.D. / APRIL

Intraoperative Consult Diagnosis:
Part 1
Frozen section diagnosis

Brain, right frontal (FS x1):
-Metastatic adenocarcinoma.

Megan Pride M.D.
10/27/2022, time not given

is informed by phone by Dr. Megan Lofton.

Gross Description:
Part 1 Labeled right frontal tumor . Received fresh for intraoperative diagnosis are 2 craig-pink tissue portions measuring 1.2 x 0.8 x 0.5 cm and 0.7 x 0.7 x 0.4 cm. One of the fragments is submitted for 1 H&E frozen section and all tissue is forwarded for routine histological processing.
1-frozen section remnant, 1 piece.
2-remaining tissue, 1 piece. (MN)*
Part 2. Labeled right frontal tumor . Received in formalin is a 2.7 x 2.4 x 2.3 cm ovoid craig-pink, friable fragment of presumptive brain tissue. The specimen is serially sectioned to reveal cut surfaces that range from predominantly craig-pink to focally craig-white, diffusely fleshy. Finishing Range Feeder tissue submitted including approximately 50% of the specimen.
1 through 3-1 piece each. ()*

Phone #: [phone], On-Call Pathologist: [phone] BUN (11/04/2022) ???BUN - 11 mg/dL Calcium Level (11/04/2022) ???Calcium - 9.1 mg/dL CBC (11/04/2022) ???WBC - 7.2 k/mm3???RBC - 4.66 m/mm3???Hgb - 14.0 Gm/dL???Hct - 42.3 %???MCV - 90.8 femtoliters???MCH - 30.0 pg???MCHC - 33.1 g/dL???Platelet Count - 183 k/mm3???RDW-SD - 43.3 femtoliters???MPV - 10.4 femtoliters???Nucleated RBC (Automated) - 0.0 #/100 WBC'S???Abs. NRBC - 0.0 k/mm3 CBC w/ Differential (11/01/2022) ???WBC - 5.2 k/mm3???RBC - 4.33 m/mm3???Hgb - 13.3 Gm/dL???Hct - 39.2 %???MCV - 90.5 femtoliters???MCH - 30.7 pg???MCHC - 33.9 g/dL???Platelet Count - 154 k/mm3???RDW-SD - 42.1 femtoliters???MPV - 10.7 femtoliters???Nucleated RBC (Automated) - 0.0 #/100 WBC'S???Abs. NRBC - 0.0 k/mm3???Abs. Neut - 3.8 k/mm3???Abs. Lymph - 1.1 k/mm3???Abs. Fannin - 0.3 k/mm3???Abs. Eo - 0.0 k/mm3???Abs. Baso - 0.0 k/mm3???Neut % - 73.2 %???Lymph % - 21.0 %???Fannin % - 5.4 %???Eos % - 0.0 %???Baso % - 0.0 %???Imm Gran - 0.4 %???Abs. Imm Gran - 0.0 k/mm3 Comprehensive Metabolic Panel (11/01/2022) ???Sodium - 136 mmol/L???Potassium - 4.1 mmol/L???Chloride - 102 mmol/L???Bicarbonate Level - 23 mmol/L???Anion Gap - 11???Glucose Level - 129 mg/dL???BUN - 10 mg/dL???Creatinine-Blood - 0.5 mg/dL???Estimated GFR Creatinine - 101 ML/MIN/1.73 M2???Calcium - 8.4 mg/dL???Protein, Total - 5.7 Gm/dL???Al bumin - 3.3 Gm/dL???AG Ratio - 1.4???Alkaline Phosphatase - 34 units/L???AST (SGOT) - 11 units/L???ALT (SGPT) - 10 units/L???Bilirubin, Total - 0.4 mg/dL Creatinine (11/04/2022) ???Creatinine-Blood - 0.5 mg/dL???Estimated GFR Creatinine - 102 ML/MIN/1.73 M2 Electrolytes (10/30/2022) ???Sodium - 139 mmol/L???Potassium - 3.7 mmol/L???Chloride - 105 mmol/L???Bicarbonate Level - 22 mmol/L???Anion Gap - 12 Glucose Level (11/02/2022) ???Glucose Level - 120 mg/dL GLUCOSE POC (10/27/2022) ???Glucose, POC - 138 mg/dL INR (10/26/2022) ???INR - 1.1???Protime (PT) - 11.6 seconds Ionized Calcium (10/31/2022) ???Calcium, Ionized pH Corrected - 1.19 mmol/L Lytes (11/04/2022) ???Sodium - 136 mmol/L???Potassium - 4.2 mmol/L???Chloride - 101 mmol/L???Bicarbonate Level - 23 mmol/L???Anion Gap - 12 Magnesium Level (11/04/2022) ???Magnesium - 2.2 mg/dL Phosphorus Level (11/04/2022) ???Phosphorus - 2.5 mg/dL Type and Screen (10/26/2022) ???Blood Type - A Positive???Antibody Screen - Negative Allergies (NKA means No Known Allergies) Other Environmental Allergy Rubber Zoloft??(O/E - Parkinsonian tremor) Problems Active Problems??(23 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 Age at leaving school - ged?? ASCUS?? Cheko-León respiration: ??see 05/25/11 Sleep Report?? Clubbing?? Emphysema of lung: mixed emphysema/UIP?? Esophageal reflux (GERD)?? JASON (generalized anxiety disorder)?? Hep C: ??Cleared without treatment?? HPV: ??Positive in 07/15; 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, negative in 10/16?? Hypertension?? Lung cancer?? Lung nodules?? Major depressive disorder, [facility]?? Opioid dependence?? Opioid use disorder?? Osteoporosis?? Pain in finger of right hand?? Palpitations?? Pelvic mass?? Resting tremor?? Tobacco abuse?? Tubular adenoma of colon?? Education Materials Below is the list of Educational Leaflet Providered with your Discharge Instructions. Your Body's Response to Anxiety?? Discharge Instructions for Craniotomy?? Valuables and Belongings I fully understand and agree that [facility] accepts no responsibility for all my personal property including clothing, toilet articles, radios, jewelry, dentures, hearing aids, rings, money, or any other property that is in my possession or is brought to me after admission. I understand certain valuables may be placed in a hospital safe for a short period of time. I understand that the hospital is not liable for loss or damage due to accident, fire, or other natural occurrence while said property is in the safe. I accept full responsibility for any personal property that I keep with me, and will not hold the hospital responsible in case of loss or disappearance. I acknowledge that i have been encouraged to send valuables and belongings home. ?? Review of Valuable and Belonging List: With patient Date for Pt to Sign Valuables/Belongings: 11/04/22 16:08:00 ?? Other Discharge Information ?? Wound Assessment?? Wound Assessment?? Wound Location I: Head Wound Type I: Surgical Wound I, Present on Admission: Yes Surgical Incision Type I: Surgical Surgical Incision Assessment I: Clean, dry, intact ?? Case Management Discharge Plan?? Discharge Plan?? Discharge Agency Information?? Discharge Level of Care at Discharge: [facility] facility Name of Agency #1: [facility] Discharge Transportation Arranged: [facility] [address] [facility] [id number] [phone] Agency Meteorological Engineer #1: Intake Mode of Transportation Arranged: Ambulance Service Start Date and Time #1: 11/04/22 17:00:00 Discharge Arranged Transport Date/Time: 11/04/22 17:00:00 Service Categories #1: Occupational Therapy, Physical Therapy, [facility] Discharge Nursing Homes/Rehab Facilities: [facility] Service Comments #1: You are being discharged to [facility]. ??You will receive PT, OT, andskilled nursing. ?? Name of Person Notified of Transfer: Magda, daughter ?? Pulmonary Rehab Status?? Pulmonary Rehab Discharge Status?? Respiratory Rate: 18 br/min ? Common Emergency Awareness Tips IS IT A STROKE? Act FAST and Check for these signs: FACE Does the face look uneven? ARM Does one arm drift down? SPEECH Does their speech sound strange? TIME Call at any sign of stroke ?? Heart Attack Signs Chest discomfort: Most heart attacks involve discomfort in the center of the chest and lasts more than a few minutes, or goes away and comes back. It can feel like uncomfortable pressure, squeezing, fullness or pain. Discomfort in upper body: Symptoms can include pain or discomfort in one or both arms, back, neck, jaw or stomach. Shortness of breath: With or without discomfort. Other signs: Breaking out in a cold sweat, nausea, or lightheaded. Remember, MINUTES DO MATTER. If you experience any of these heart attack warning signs, call to get immediate medical attention! ?? Smoking can increase your chances of developing chronic health problems and can cause harmful effects to other family members in your house. If you smoke, you are strongly encouraged to quit. Please call [facility] [employer] Link at [phone] or [phone]) or log in to [email or web address] for referrals to smoking cessation programs. ?? 307 Suicide & Crisis Lifeline is available 28/11 if you or someone you know needs to find a reason to keep living. By calling 225 you'll be connected to a skilled, trained counselor at a crisis center in your area. INPATIENT DISCHARGE INSTRUCTIONS SIGNATURE PAGE ANA MARIA EATON Location:[facility] Registration Date and Time:10/26/2022 15:34 EDT Primary Care Physician: Mavis Allen, Attending Physician: Jenny Vidal MD, I ANA MARIA EATON, have received the above patient education materials/instructions and have verbalized understanding. If ambulance or transport services are being used I further acknowledge being given a choice of service. ?? If you need to contact me, please call me at this number: . Patient/Finishing Range Feeder Name: Patient/Finishing Range Feeder Signature: Relationship to Patient: Witness Name/Signature: Date: * Jenny Vidal MD: PERFORM Event Display: Patient Education Leaflets Authored Date: [id number] Your Body's Response to Anxiety ?? 84345 Your Body???s Response to Anxiety Anxiety is part of the body???s natural defense system. It's an alert to a threat. The threat may be unknown, vague, or from your own internal fears.??While you???re in this state, your feelings can range widely. You may feel a sense of worry. You may have physical feelings, such as a racing heartbe at. These feelings make you want to react to the threat. An anxiety response is common in many situations. But some people may have an anxiety disorder. Then the same response can occur too much or at the wrong times. Anxiety can be helpful Anxiety is a signal from your brain. It warns you of a threat. It's a common response to help you prevent something. Or it helps you to decrease the bad effects of something you can't control. For example, anxiety is a response to things that might harm your body, separate you from a loved one, or cause you to lose your job. The symptoms of anxiety can be physical and mental. ?? How does it feel? People with anxiety may have any of these symptoms: Physical symptoms ??? Dizziness ??? Muscle tension or pain ??? Restlessness ??? Sleeplessness ??? Racing heartbeat ??? Fast breathing ??? Shaking or trembling ??? Stomachache ??? Diarrhea ??? Loss of energy ??? Sweating ??? Cold, sweaty hands ??? Chest pain ??? Dry mouth Emotional symptoms ??? Irritability ??? Difficulty concentrating ??? Worrying ?? Anxiety can also be a problem Anxiety can become a problem when it is: ? Hard to control ??? Occurs for months ??? Causes problems with important parts of your life ?? With an anxiety disorder, your body has symptoms of anxiety too often or too much. The response depends on the type of anxiety disorder. With some types of disorders, the anxiety is much more than needed for the threat that triggers it. With other types, anxiety may occur when there isn???t a clearthreat or trigger. ?? Who has anxiety? Some people are more likely to have a lot of anxiety than others. This tends to run in families. And it affects more younger people than older people. It's more common in women than men. But no age, race, or gender is immune to anxiety problems. ?? Anxiety can be treated Anxiety that disrupts your life can be treated. Your healthcare provider can rule out any physical problems that may cause the anxiety symptoms. If you are diagnosed with an anxiety disorder, mental healthcare will help. An anxiety disorder is an illness. It can respond to treatment. Most types of anxiety disorders arehelped with talk therapy (counseling) and medicines. Your healthcare provider can help you develop skills to cope with anxiety. You can work to gain perspective. This can help you overcome fears. Good sources of support or guidance can be found in many places. You???ll find support??at your local hospital, mental health clinic, or an employee assistance program. ?? How to manage anxiety Here are some things you can do to cope: ??? Do what you can. Keep in mind that you can???t controleverything. Change what you can. And let the rest take its course. ??? Exercise. This is a great way to ease tension. It can help your body feel relaxed. ??? Don't use caffeine or nicotine. These canmake anxiety symptoms worse. ??? Stay sober. Don't use alcohol or misuse prescribed medicines. Theyonly make things worse over time. ??? Learn more about anxiety disorders. Keep track of helpful online resources and books you can use during stressful periods. ??? Work on stress management. Try methods, such as meditation. ??? Talk with others. Join an online or in-person support group. ??? Get medical care. Mental health services can help you manage your symptoms if the above methods don't help enough. ?? Last Reviewed Date: 2022 ?? [employer]. All rights reserved. This information is not intended as a substitute for professional medical care. Always follow your healthcare professional's instructions. ?? * Jenny Vidal MD: PERFORM Event Display: Patient Education Leaflets Authored Date: [id number] Discharge Instructions for Craniotomy ?? 75519 Discharge Instructions for Craniotomy You had a craniotomy. This means your neurosurgeon made an opening in your skull to do brain surgery. Recovery after a craniotomy varies, depending on why you had the procedure. The guidelines provided here are for general care. Ask your healthcare provider to provide more information based on your??own condition. Home care Do's and don'ts include:? Increase your activity slowly. Talk with your healthcare provider about which activities you can start with. If you have physical and occupational therapists, they can provide a plan. ??? Don???t drive until your healthcare provider says it???s OK. ??? Don???t lift anything until your healthcare provider says it???s OK. Your provider may tell you not to lift more than 10 pounds for a period of time. ??? Take your??medicine exactly as directed. ??? Shower as needed. But keep your incision dry. You can wash your hair with mild soap after your stitches or jessica have been removed. ??? Don???t put creams, lotions, or other ointments on your incision unless your pr ovider tells you to. Keeping the incision clean and dry will help it to heal quickly. Most stitchesor jessica in the scalp are removed in 7 to 10 days. ??? Don't drink alcohol or use recreational drugs. ??? Get plenty of rest and sleep. ??? Don't take aspirin, ibuprofen, or??similar medicines unless your healthcare provider says it's OK. ?? Follow-up Make a follow-up appointment. ?? When to call your healthcare provider Call your healthcare provider right away or seek immediate medical attention if you have any of thefollowing: ??? Swelling on the face or scalp ??? Incision that becomes red and hot or drainage fromincision ??? Fever??of?? 100.4?? F??( 38??C)??or higher, or as directed by your healthcare provider??? Chills ??? Confusion, memory loss, trouble speaking, or hallucinations ??? Fainting or ???blacking out? Double or blurred vision, or partial or total loss of vision ??? Numbness, tingling, or weakness in your face, arms, hands, legs, or feet ??? Stiffness in your neck ??? Severe sensitivity to light (photophobia) or severe headache ??? Seizure ??? Trouble controlling your bowels or bladder ??? Nausea or vomiting ??? Fluid draining from the incision, nose, or ear ??? Changes in behavior ??? New symptoms show up ?? Last Reviewed Date: 2021 ?? 9517-5249 [employer]. All rights reserved. This information is not intended as a substitute for professional medical care. Always follow your healthcare professional's instructions. ?? * Adela Mujica: VERIFY, PERFORM, SIGN Event Display: Patient Education Handout Authored Date: [id number] * Mihai Amaro NP: PERFORM, MODIFY, SIGN, VERIFY Event Display: Discharge/Transfer Note Hospital Authored Date: [id number] Patient: ANA MARIA EATON Age: 67 years Sex: Female : 1955 Associated Diagnoses: None Author: Mihai Amaro NP HPI: Ana Maria Eaton is a 67-year-old woman with a history of lung cancer status post lobectomy, heroin use on methadone 70mg daily, HTN, anxiety, tobacco use, GERD, COPD and hep c admitted to [facility] with left lower extremity weakness and confusion found to have frontal lobe mass and transferred to [facility]. She presented to outside hospital with left-sided weakness for approximately 1 week. Patient underwent head CT which demonstrated right frontal mass this was followed up by MRI with and without contrast which confirmed findings. In pre op she was noted to have L sided extremity weakness. She underwent Right frontal craniotomy for resection of brain tumor for [place] today for metastatic lung ca ncer and is admitted to the ICU for neurochecks. O/N Events - Weaned off Nicardipine infusion - Was accepted by medicine service. STICU Course Summary: Since arriving in the STICU, her noted Left sided weakness has improved compared to pre-op per documentation. Her MRI brain was re-completed w/ correct contrast and she appears suitable for transfer from the STICU to medicine service per neurosurgery team request. She was on nicardipine when the transfer was cleared w/ medicine service and is booked to intercare service, can likely be downgraded further if remains off nicardipine infusion. ROS - General: Denies fevers or chills HEENT: Denies acute vision or hearing changes Neuro: Denies headache or confusion CV: Denies chest pain, palpitations or SOB Pulm: Denies SOB or cough GI: Denies abdominal pain, no N/V/C/D : Denies dysuria Extremities: Denies limb pain Resuscitation Status: Full resuscitation I/O's I: 1L O: 900cc Net/24hrs: -100cc Health Status Problem list All Problems Age at leaving school - ged / SNOMED CT 342302905 / Confirmed ASCUS / SNOMED CT 39529021 / Confirmed Cheko-León respiration: see 05/25/11 Sleep Report / SNOMED CT 551033176 / Confirmed Hep C: Cleared without treatment / SNOMED CT 367478152 / Confirmed Clubbing / SNOMED CT 1738717 / Confirmed Drug abuse: Suboxone via [facility] / SNOMED CT 46397574 / Confirmed Esophageal reflux (GERD) / ICD-9-CM 530.81 / Confirmed JASON (generalized anxiety disorder) / SNOMED CT 70543539 / Confirmed HPV: Positive in 07/15; 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, negative in 10/16 / SNOMED CT 709461915 / Confirmed Hypertension / ICD-9-CM 997.91 / Confirmed Lung cancer / SNOMED CT 449347315 / Confirmed Lung nodules / SNOMED CT 0802972040 / Confirmed Opioid use disorder / SNOMED CT 424263835 / Confirmed Osteoporosis / SNOMED CT 793171928 / Confirmed Pain in finger of right hand / SNOMED CT 47325180 / Confirmed Palpitations / SNOMED CT 785825834 / Confirmed *[phone] 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 Rob / SNOMED CT 846417591 / Confirmed Pelvic mass / SNOMED CT 547347368 / Confirmed Emphysema of lung: mixed emphysema/UIP / SNOMED CT 410418044 / Confirmed Major depressive disorder, [facility] / SNOMED CT 228846780 / Confirmed Resting tremor / SNOMED CT 229567054 / Confirmed Tobacco abuse / SNOMED CT 524735498 / Confirmed Tubular adenoma of colon / SNOMED CT 9466203083 / Confirmed repeat screening colonoscopy in 2023 Current medications (Selected) Inpatient Medications Ordered Bisacodyl Supp: 10 mg, Suppository, Rectally, 2 times a day, PRN for Constipation, Routine, 10/27/22 18:02:00 EDT Decadron Inj: 4 mg, Injection, IV Push Slowly, Every 8 hours for 6 days, Routine, 10/27/22 22:00:00EDT, Stop date 11/03/22 21:59:00 EDT Docusate/Senna Tablet: 1 tablet, Tablet, By Mouth, 2 times a day, PRN for Constipation, Routine, 10/26/22 16:11:00 EDT Heparin Inj: 5,000 units, Injection, Subcutaneous Injection, 3 times a day, (DVT Prophylaxis), Routine, 10/30/22 22:00:00 EDT Keppra 500 mg oral tablet: 500 mg, Tablet, By Mouth, 2 times a day, Routine, 10/31/22 9:00:00 EDT, Stop date 11/04/22 8:59:00 EDT Melatonin Tablet: 3 mg, Tablet, By Mouth, Daily at bedtime, PRN for Insomnia, Routine, 10/26/22 16:11:00 EDT Methadone Liquid: 23 mg, Solution, By Mouth, Every 8 hours, Routine, 10/29/22 6:00:00 EDT Milk of Magnesia Liquid: 30 mL, Suspension, By Mouth, 2 times a day, PRN for Constipation, Routine,10/27/22 18:02:00 EDT NaCL 0.9% Flush: 3 mL, Injection, IV Push, Every 8 hours, PRN for Line/Tube Patency, Routine, 10/26/22 16:11:00 EDT Nicotine Topical: 21 mg, Patch, Topically, Apply to Right Arm, Daily, Routine, 10/27/22 9:00:00 EDT Nicotrol Inhaler: 1 inhalation, Inhaler, Inhalation, Every hour, PRN for Other, Nicotine WithdrawalSymptoms (NOT to exceed 16 doses per day), Routine, 10/27/22 0:22:00 EDT Remove Patch: 1 each, Patch, Topically, Apply to Right Arm, Daily, Remove existing Nicotine Topicalpatch prior to new patch application., Routine, 10/27/22 9:00:00 EDT Tylenol 325 mg oral tablet: 650 mg, Tablet, By Mouth, Every 6 hours, Routine, 10/28/22 10:00:00 EDT Ventolin 90 mcg Inhaler: 180 mcg, 2 puffs, Inhaler, Inhalation, 4 times a day, PRN for Wheezing/Shortness of Breath, Routine, 10/26/22 19:12:00 EDT hydrALAZINE Inj: 10 mg, Injection, IV Push Slowly, Every 3 hours, PRN for Blood Pressure, SBP >140 mmHg for two consecutive checks, Routine, 10/29/22 3:10:00 EDT lisinopril 10 mg oral tablet: 10 mg, Tablet, By Mouth, Daily, Routine, 10/30/22 9:56:00 EDT nalOXONE Inj: 0.2 mg, Injection, IV Push, Every 5 minutes, PRN for Other, Respiratory Rate less than 8 or for somnolence/excessive sedation. Repeat until Respiratory Rate is greater than 15 and patient is more alert., Routine, 10/26/22 19:05:00 EDT oxyCODONE 5 mg oral tablet: 5 mg, Tablet, By Mouth, Every 4 hours, PRN for Pain , Severe, Routine, 10/30/22 23:25:00 EDT pantoprazole 40 mg oral delayed release tablet: 40 mg, EC Tablet, By Mouth, Daily, Indicated for: Continuation from Home, Routine, 10/31/22 9:00:00 EDT Prescriptions Prescribed Flovent HFA 220 mcg/inh inhalation aerosol: 2 puffs, Inhalation, 2 times a day, AND THROAT AFTER EACH USE., # 12 each, 11 Refills, [facility] STORE [facility]40, 154.8, cm, 09/14/21 9:50:00 EDT, Height, 56, kg, 12/09/20 9:16:00 EDT, Dry Weight Ventolin HFA 108 mcg/inh inhalation aerosol with adapter: 2 puffs, Inhalation, 4 times a day, PRN NEEDED FOR WHEEZING, # 18 each, 2 Refills, Maintenance, 07/21/22 6:46:00 EDT, [facility] STORE 60770, 154, cm, 06/22/22 15:01:00 EST, Height, 56, kg, 12/09/20 9:16:00 EDT, Dry Weight alendronate 70 mg oral tablet: 1 tablet, By Mouth, Every week, # 12 tablet, 3 Refills, Maintenance,05/26/22 19:48:00 EST, [facility] STORE 57801, 154.8, cm, 05/25/22 13:21:00 EST, Height, 56, kg, 12/09/20 9:16:00 EDT, Dry Weight calcium-vitamin D 600 mg-400 intl units oral tablet: 1 tablet, By Mouth, 2 times a day with meals, # 180 tablet, 0 Refills, Maintenance, 07/21/22 6:46:00 EDT, [facility] STORE 35081, 90, TAKE 1 TABLET BY MOUTH TWICE A DAY WITH FOOD, 154, cm, 06/22/22 15:01:00 EST, Height, 56, kg, 12/09/20 9:16:00 EDT, DryWeight... clonazePAM 0.125 mg oral tablet, disintegrating: See Instructions, 1 tablet By Mouth Daily at bedtime., # 30 tablet, 0 Refills, Maintenance, 07/11/22 15:10:00 EST, [facility]/pharmacy #[id number], Partial fill upon patient request if the prescription is for a schedule II opioid drug., 154, cm, 06/22/22 15:01:00... fluticasone 50 mcg/inh nasal spray: See Instructions, USE 1 SPRAY IN EACH NOSTRIL DAILY, # 48 mL, 11 Refills, [facility] STORE 73021, 90, USE 1 SPRAY IN EACH NOSTRIL DAILY, 154.8, cm, 09/14/21 9:50:00 EDT, Height, 56, kg, 12/09/20 9:16:00 EDT, Dry Weight lisinopril 10 mg oral tablet: 1, tablet, By Mouth, Daily, # 90 tablet, Refills 3, Route to PharmacyElectronically, [facility] STORE 40078, 154.8, cm, 09/14/21 9:50:00 EDT, Height, 56, kg, 12/09/20 9:16:00 EDT, Dry Weight melatonin 3 mg oral tablet: 2 tablet = 6 mg, By Mouth, Daily at bedtime, PRN Insomnia, # 60 tablet,2 Refills, Maintenance, 08/04/22 12:21:00 EDT, [facility]/pharmacy #[id number], Partial fill upon patient request if the prescription is for a schedule II opioid drug., 154, cm, 06/22/22 15:01... nicotine 2 mg oral transmucosal lozenge: 1 lozenge = 2 mg, By Mouth, Every 2 hours, # 72 each, 11 Refills, Maintenance, 10/13/20 8:35:00 EDT, [facility]/pharmacy #[id number], Partial fill upon patient request if the prescription is for a schedule II opioid drug., 1 lozenge By Mouth Every 2 hours, 154.9,... omeprazole 20 mg oral enteric coated capsule: 1 capsule = 20 mg, By Mouth, Daily, # 90 capsule, 0 Refills, Maintenance, 08/01/22 14:52:00 EDT, EC Capsule, [facility]/pharmacy #[id number], Partial fill upon patient request if the prescription is for a schedule II opioid drug., 154, cm, 06/22/22 15:01:00 EST, H... Documented Medications Documented Methadone: = 70 mg, By Mouth, Daily, 0 Refills, Maintenance, 06/22/22 13:11:00 EST, Partial fill upon patient request if the prescription is for a schedule II opioid drug. Stiolto Respimat 60 ACT 2.5 mcg-2.5 mcg/inh inhalation aerosol: 0 Refills, Maintenance, 06/22/22 8:29:00 EST, Partial fill upon patient request if the prescription is for a schedule II opioid drug. Results Review Today's results : Results 10/30/2022 16:00 EDT Temperature 97.6 DegF Temperature Route Axillary Heart Rate Monitored 68 bpm Respiratory Rate 14 br/min L Vented No Systolic Blood Pressure 123 mm Hg Diastolic Blood Pressure 79 mm Hg Blood pressure sites Arm, left Pulse Pressure 44 mm Hg Oxygen Saturation 96 % Mode of Delivery (Oxygen) Room air 10/30/2022 5:57 EDT Est Creatinine Clearance 82.39 mL/min 10/30/2022 5:07 EDT WBC 10.5 k/mm3 RBC 5.06 m/mm3 Hgb 15.2 Gm/dL Hct 45.8 % MCV 90.5 femtoliters MCH 30.0 pg MCHC 33.2 g/dL Platelet Count 145 k/mm3 L RDW-SD 42.2 femtoliters MPV 11.2 femtoliters Nucleated RBC (Automated) 0.0 #/100 WBC'S Abs. NRBC 0.0 k/mm3 Abs. Neut 9.0 k/mm3 H Abs. Lymph 0.9 k/mm3 Abs. Fannin 0.5 k/mm3 Abs. Eo 0.0 k/mm3 Abs. Baso 0.0 k/mm3 Neut % 85.6 % H Lymph % 8.9 % L Fannin % 4.7 % Eos % 0.0 % Baso % 0.1 % Imm Gran 0.7 % Abs. Imm Gran 0.1 k/mm3 Sodium 139 mmol/L Potassium 3.7 mmol/L Chloride 105 mmol/L Bicarbonate Level 22 mmol/L Anion Gap 12 Glucose Level 139 mg/dL H BUN 14 mg/dL Creatinine-Blood 0.5 mg/dL Estimated GFR Creatinine 103 ML/MIN/1.73 M2 Calcium 8.7 mg/dL Phosphorus 1.9 mg/dL L Magnesium 2.1 mg/dL Physical Examination Significant Findings on Physical Exam General: Pt appears resting in bed in no acute distress Neuro: [On no sedating drips] Pt opens eyes spontaneously, moves x4 extremities spontaneously and to command though noted 4/5 to LUE, and 4+/5 to LLE, RUE/RLE both 5/5 motor strength. pupils 3mm reactive/symmetrical bilaterally. Oriented x3 Cardiac: s1/s2 auscultated, RRR. Currently NSR 70-80 via telemetry w/ BP 110-120/60-70 via cuff. Noperiph edema x4 extremities. Pulm: lungs CTA throughout. Current SpO2 94-98% on room air GI: abd soft, non-tender, non-distended : deferred MSK: no gross msk deformities Integ: has right fronto-parietal incision that is closed and open to air with scant dried blood to inferior portion of incision along hairline. Skin otherwise grossly w/d/i. Impression and Plan Ana Maria Eaton is a 67-year-old woman with a history of lung cancer status post lobectomy, heroin use on methadone 70mg daily, HTN, anxiety, tobacco use, GERD, COPD and hep c admitted to [facility] with left lower extremity weakness and confusion found to have frontal lobe mass and transferred to [facility]. She presented to outside hospital with left-sided weakness for approximately 1 week. Patient underwent head CT which demonstrated right frontal mass this was followed up by MRI with and without contrast which confirmed findings. In pre op she was noted to have L sided extremity weakness. She underwent Right frontal craniotomy for resection of brain tumor for [facility] 10/27 with concern for metast atic lung cancer and is admitted to the ICU for neurochecks. Her noted Left sided weakness has improved compared to pre-op per documentation. Her MRI brain was completed and she appears suitable for transfer from the STICU to medicine service per neurosurgery team request. She was on nicardipine when the transfer was cleared w/ medicine service and is booked to intercare service, since she has been off the nicardipine infusion, medicine has approved her for further downgrade to neuro acute floor. Neuro Metastatic lung cancer to brain Acute posteropative pain Chronic methadone use 2/2 history of heroin abuse Plan- -Pain regimen: Tylenol 650mg q6hrs, Oxycodone 5mg q4hrs PRN and Dilaudid 0.5mg q4hrs PRN; - dilaudid SA[employer]AGE STUFFER d/c 2/2 approved for PO medications s/p swallow eval by speech. - Continue Keppra 500 BID - Continue methadone 70mg daily - Addiction med consulted - NSG Consult, appreciate recommendations -Transfer to Floor under medical team -Q4 neuro checks -continue decadron and Keppra -OOB with assistance -PT eval -Bowel regimen -DVT prophylaxis subq heparin -Any question page [phone] CV- PMHx: HTN Plan- -Continuous cardiac monitoring -Goal MAP > 65, but SBP <140, nicardipine PRN - resume home lisinopril -Fluid boluses as needed -Monitor BP/HR Pulm- Stable on room air Hx Smoker, COPD Plan- - CPT, incentive spirometer & Duonebs - Maintain SpO2 between 88-92% GI- Hx GERD Plan- -Diet: regular - approved for a regular diet per speech s/p swallow evaluation. -Monitor and record bowel movements -Bowel regimen: Milk of Mag, Docusate -PPI: Pantoprazole -Monitor daily Ins/Outs Renal- French placed 10/24 Electrolyte abnormalities: Hypocalcemia, Hypomagnesemia, Hypokalemia Plan- -Discontinue french catheter, has been standing/pivoting to a commode. -Daily renal labs -Replete lytes per ICU Ca/Phos/Potassium protocol Heme- No active issues Plan- -Will transfuse for Hgb < 7.0 per ICU protocol -Daily CBC -Monitor H/H trends Endocrine- No acute issues Plan- -ICU insulin protocol not requiring insulin drip currently MSK/Integ- (R) craniotomy incision with dressing clean, dry and intact Plan- -open to air incision now, monitor for drainage/discharge., ID- PMH: Hep c Plan- -Monitor fever curve -Trend WBC's - Ancef for 24hrs - completed Social- NOK: MAGDA HAUSER Relation to Pt: Child [address] [address] Prophylaxis- HOB > 30 degrees GI: Pantoprazole (home med) DVT: subq heparin 5000 tid Code Status-Full Code Primary Team- Neurosurgery Disposition- [facility], care to be transitioned to medicine service, discussed w/ Dr. Jose Davies. Patient seen and plan of care discussed w/ STICU attending, Dr. Kam Amaro, [facility] care, [id number] Subsequent Care Time: 25 minutes The above time reflects the time spent evaluating, managing, and titrating therapies for this patient. This time is not reflective of time utilized for independently billable procedures. Date of Service: 10/30/22 Patient Care team information Care Team Personnel Name: Joyce Brice RN Position: S RN Supv Member Role: Primary Care Nurse Name: Ryan Wilson RN Position: S RN Member Role: Primary Care Nurse Name: Mavis Allen Position: [facility] Associate Professional Member Role: PCP Address: Address: [address] [place] [address]. [address]rd [address] [place], [place] [address] Name: Allyn Rhoades Position: S RN Member [...] Care Nurse Care Team Related Persons Name: JOSELIN EATON Address: home [address] [place] [address] Name: MAGDA HAUSER Address: home [address] [place] [id number] Name: NO, ONE AT THIS TIME
--- OUTSIDE RECORDS SUMMARY | 2022-12-26 10:32 | XMS_ITS | Continuity of Care Document ---
Author Name Unknown Organization [facility] Address [address] [place] [address]- Care Team Providers Care Etl Data Architect Name Role Phone Adalberto Murcia MD Primary Care Physician Encounter [facility] Date(s): 04/09/21 - 05/09/21 [facility] [address] [place] [address]- Allergies, Adverse Reactions, Alerts Substance Reaction Severity [...] 17:04:00 EDT, Aerosol, Route to Pharmacy Electronically, [id number]... Start Date: 08/03/20 Status: Ordered BiPAP Machine [...] 56 tablet, 3 Refills, Acute, [facility], 154.9, cm, 06/11/20 9:48:00 EST, Height, 58, kg, 06/05/20 12:02:00 EST, Dry Weight Start Date: 08/03/20 Status: Ordered clonazePAM 1 mg oral tablet 1 tablet = 1 mg, By Mouth, 2 times a day, PRN Anxiety, Please dispense on/after 05/08/21, # 60 tablet, 0 Refills, Maintenance, 04/20/21 13:33:00 EST, Tablet, [id number], 154.8, cm, 04/20/21 13:17:00 EST, Height, 56, kg, 12/09/20 9:16:00 EDT, Dry... Start Date: 04/20/21 Status: Ordered CPAP Equipment See Instructions, # 1 units, Refills 12, Tot. Refills 12, Maintenance, BIPAP supplies: Mask, tubing, filters, headgear, chin strap, water chamber Dx: Cheko león respiration, severe (786.04) Lengthof need 99 months Please fax to [facility], [phone],... Start Date: 06/30/17 Status: Ordered CPAP Equipment See Instructions, # 1 each, Refills 12, Tot. Refills 12, Maintenance, BiPAP supplies: Mask, tubing,filters, headgear, chin strap, heated water chamber Dx: ELSA G47.33 Length of need 99 months Please fax to [facility] fax # [phone], 07/02/20 14:50:0... Start Date: 07/02/20 Status: Ordered [...] 06/23/20 10:00:00 EST, Route to Pharmacy Electronically, [facility]/pharmacy #[id number], To replace Topamax. Partial fillupon patient request if the prescription is for a... Start Date: 06/23/20 Status: Ordered lisinopril 10 mg oral tablet 10 mg, 1, tablet, By Mouth, Daily, # 90 tablet, Refills 3, Tot. Refills 3, Maintenance, 09/28/20 13:15:00 EDT, Route to Pharmacy Electronically, [facility]/pharmacy #[id number], 154.9, cm, 09/22/20 10:26:00 EDT, Height, 58, kg, 06/05/20 12:02:00 EST, Dry Weight Start Date: 09/28/20 Stop Date: 09/23/21 Status: Ordered melatonin 3 mg oral tablet 1 tablet = 3 mg, By Mouth, Daily at bedtime, PRN Insomnia, # 60 tablet, 11 Refills, Maintenance, 03/29/21 21:06:00 EST, [facility]/pharmacy #[id number], Partial fill upon patient request if the prescription is for a schedule II opioid drug., 154.8, cm, 03/23/21 11... Start Date: 03/29/21 Status: Ordered nicotine 2 mg oral transmucosal lozenge 1 lozenge = 2 mg, By Mouth, Every 2 hours, # 72 each, 11 Refills, Maintenance, 10/13/20 8:35:00 EDT, [facility]/pharmacy #[id number], Partial fill upon [...] each, Refills 3, Tot. Refills 3, Maintenance, [place] Ensure 1 can TID. Dx: C34.90, R63.4, [...] Active Clubbing(Confirmed) Active Drug abuse: Suboxone via [facility](Confirmed) Active Esophageal reflux (GERD)(Confirmed) 05/09/12 [...]
--- OUTSIDE RECORDS SUMMARY | 2022-12-26 10:32 | XMS_ITS | Continuity of Care Document ---
Author Name Unknown Organization [facility] Address [address] [place] [address]- Care Team Providers Care Windows Server Administrator Name Role Phone Divina MARINELLI, Adalberto Reeder Primary Care Physician Encounter [facility] Date(s): 04/24/20 - 05/24/[address] [address]- Allergies, Adverse Reactions, Alerts Substance Reaction Severity [...] Refills, Maintenance, 07/31/19 11:08:00 EDT, Tablet, [facility]/pharmacy #[id number], 154.9, cm, 07/04/19 9:38:00 EST, Height, [...] tablet = 0.5 mg, By Mouth, Once, calliope player to procedure. May repeat X 1, # 2 tablet, 0 Refills, Soft Stop, 04/24/20 11:56:00 EST, Tablet, [facility]/pharmacy #[id number], Partial fill upon patient request if [...] 11 Refills, Maintenance, 02/18/20 9:43:00 EDT, Tablet, [facility]/pharmacy #[id number], 1 tablet By Mouth 2 times [...] 02/18/20 9:42:00 EDT, Route to Pharmacy Electronically, [facility]/pharmacy #[id number], 154.9, cm, 12/30/19 11:15:00 EDT, Height, 55.3, kg, 04/19/19 8:36:00 EST, Dry Weight Start Date: 02/18/20 Status: Ordered cetirizine 10 mg oral tablet 1 tablet = 10 mg, By Mouth, Daily, PRN Other, PRN allergies, # 30 tablet, 11 Refills, Maintenance, 02/18/20 9:43:00 EDT, Tablet, [facility]/pharmacy #[id number], 154.9, cm, 12/30/19 11:15:00 EDT, Height, 55.3, kg, 04/19/19 8:36:00 EST, Dry Weight Start Date: 02/18/20 Status: Ordered chantix 1mg tablet 1 tablet = 1 mg, By Mouth, 2 times a day, after meals, to begin after completing starter pack, # 1 pack/packet, 3 Refills, Maintenance, 02/18/20 9:41:00 EDT, Tablet, [facility]/pharmacy #0957, 154.9, cm, 12/30/19 11:15:00 EDT, Height, 55.3, kg, 04/19/19 8:36... Start Date: 02/18/20 Status: Ordered clonazePAM 1 mg oral tablet 1 tablet = 1 mg, By Mouth, 3 times a day, Please fax to [facility] on [address] [phone], # 90 tablet, 2 Refills, Maintenance, 09/17/18 12:46:43 EDT, Tablet Start Date: 09/17/18 Status: Ordered CPAP Equipment See Instructions, # 1 units, Refills 12, Tot. Refills 12, Maintenance, BiPAP supplies: Mask, tubing, filters, headgear, chin strap, heated water chamber Dx: ELSA G47.33 Length of need [address] [facility], [phone], 09/04/18 15:13:48 EDT, Co... Start Date: 09/04/18 Status: Ordered CPAP Equipment See Instructions, # 1 units, Refills 12, Tot. Refills 12, Maintenance, BIPAP supplies: Mask, tubing, filters, headgear, chin strap, water chamber 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) Lengthof need [address] [facility], [phone],... Start Date: 06/30/17 Status: Ordered [facility] DIPHENHYDRAMINE 25 MG TAB [facility] DIPHENHYDRAMINE 25 MG TAB, 1, tablet, By [...] 6 Refills, Maintenance, 04/29/20 17:54:00 EST, Tablet, [facility]/pharmacy #[id number], 154.9, cm, 12/30/19 11:15:00 EDT, Height, 55.3, kg, 04/19/19 8:36:00 EST, Dry Weight Start Date: 04/29/20 Status: Ordered Eucerin Unscented topical lotion See Instructions, apply to skin daily, dispense 1 jar, # 1 each, 11 Refills, Maintenance, 09/25/19 16:37:00 EDT, [facility]/pharmacy #[id number], apply to skin daily, dispense 1 [...] Gm, 11 Refills, Maintenance, 02/18/20 9:43:00 EDT, [facility]/pharmacy #0957,1 sprays Nasal Daily, 154.9, cm, 12/30/19 11:15:00 EDT, Height, 55.3, kg, 04/19/19 8:36:00 EST, DryWeight Start Date: 02/18/20 Status: Ordered Flovent HFA 220 mcg/inh inhalation aerosol See Instructions, TAKE 2 PUFFS BY MOUTH TWICE A DAY RINSE MOUTH AND THROAT AFTER EACH USE, # 12 Unknown, 11 Refills, Soft Stop, 02/18/20 9:42:00 EDT, [facility]/pharmacy #0957, 154.9, cm, 12/30/19 11:15:00 EDT, Height, 55.3, kg, 04/19/19 8:36:00 EST, Dry Weight Start Date: 02/18/20 Status: Ordered lisinopril 10 mg oral tablet 10 mg, 1, tablet, By Mouth, Daily, # 30 tablet, Refills 11, Tot. Refills 11, Maintenance, 02/18/20 9:43:00 EDT, Route to Pharmacy Electronically, [facility]/pharmacy #[id number], 154.9, cm, 12/30/19 11:15:00 EDT,Height, 55.3, [...] Refills, Maintenance, 02/18/20 9:43:00 EDT, EC Capsule, [facility]/pharmacy #0957, 154.9, cm, 12/30/19 11:15:00 EDT, Height, 55.3, kg, 04/19/19 8:36:00 EST, Dry Weight Start Date: 02/18/20 Status: Ordered ProAir HFA 90 mcg/inh inhalation aerosol with adapter 2, puffs, Inhalation, 4 times a day, PRN, # 1 each, Refills 11, Tot. Refills 11, Maintenance, 04/20/20 13:51:00 EST, Route to Pharmacy Electronically, [id number], [facility]/pharmacy #[id number], 154.9, cm, 12/30/19 11:15:00 EDT, Height,... Start Date: 04/20/20 Stop Date: 04/15/21 Status: Ordered Stiolto Respimat 60 ACT 2.5 mcg-2.5 mcg/inh inhalation aerosol 2 puffs, Inhalation, Every 24 hours, to replace tiotropium, # 4 Gm, 11 Refills, Maintenance, 02/18/20 9:43:00 EDT, Aerosol, [facility]/pharmacy #0957, 154.9, cm, 12/30/19 11:15:00 EDT, Height, [...] Active Clubbing(Confirmed) Active Drug abuse: Suboxone via [facility](Confirmed) Active Esophageal reflux [...]
--- OUTSIDE RECORDS SUMMARY | 2022-12-26 10:32 | XMS_ITS | Continuity of Care Document ---
Author Name Unknown Organization [facility] Address [address] [place] [address] candy, [address] [place] [address]- Care Team Providers Care Extractor Machine Operator Name Role Phone Divina MARINELLI, Adalberto Reeder Primary Care Physician [facility] Date[facility]): 05/26/20 - 06/25/20 [facility] [address] [place] [address], [address] [place], [place] [address] Allergies, Adverse Reactions, Alerts Substance Reaction [...] tablet = 0.5 mg, By Mouth, Once, banquet server on call to procedure. May repeat X 1, [...] 3 Refills, Maintenance, 02/18/20 9:41:00 EDT, Tablet, [facility]/pharmacy #0957, 154.9, cm, 12/30/19 11:15:00 EDT, Height, 55.3, kg, 04/19/19 8:36... Start Date: 02/18/20 Status: Ordered clonazePAM 1 mg oral tablet 1 tablet = 1 mg, By Mouth, 3 times a day, Please fax to [facility] on [address] [phone], # 90 tablet, 2 Refills, Maintenance, 09/17/18 12:46:43 EDT, Tablet Start Date: 09/17/18 Status: Ordered CPAP Equipment See Instructions, # 1 units, Refills 12, Tot. Refills 12, Maintenance, BiPAP supplies: Mask, tubing, filters, headgear, chin strap, heated water chamber Dx: ELSA G47.33 Length of need 99 months Pleasefax to [facility], [phone], 09/04/18 15:13:48 EDT, Co... Start Date: 09/04/18 Status: Ordered CPAP Equipment See Instructions, # 1 units, Refills 12, Tot. Refills 12, Maintenance, BIPAP supplies: Mask, tubing, filters, headgear, chin strap, water chamber 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) Lengthof need 99 months Please fax to [facility], [phone],... Start Date: 06/30/17 Status: Ordered Eucerin Unscented topical lotion See Instructions, apply to skin daily, dispense 1 jar, # 1 each, 11 Refills, Maintenance, 09/25/19 16:37:00 EDT, [facility]/pharmacy #0957, apply to skin daily, dispense [...] Gm, 11 Refills, Maintenance, 02/18/20 9:43:00 EDT, [facility]/pharmacy #0957,1 sprays Nasal Daily, 154.9, cm, 12/30/19 11:15:00 EDT, Height, 55.3, kg, 04/19/19 8:36:00 EST, DryWeight Start Date: 02/18/20 Status: Ordered Flovent HFA 220 mcg/inh inhalation aerosol See Instructions, TAKE 2 PUFFS BY MOUTH TWICE A DAY RINSE MOUTH AND THROAT AFTER EACH USE, # 12 Unknown, 11 Refills, Soft Stop, 02/18/20 9:42:00 EDT, [facility]/pharmacy #0957, 154.9, cm, 12/30/19 11:15:00 EDT, Height, 55.3, kg, 04/19/19 8:36:00 EST, Dry Weight Start Date: 02/18/20 Status: Ordered Inderal LA 80 mg oral capsule, extended release 80 mg, 1, capsule, By Mouth, Daily, # 30 capsule, Refills 3, Tot. Refills 3, Maintenance, 06/23/20 10:00:00 EST, Route to Pharmacy Electronically, [facility]/pharmacy #0957, To replace Topamax. Partial fillupon patient request if the prescription is for a... Start Date: 06/23/20 Status: Ordered lisinopril 10 mg oral tablet 10 mg, 1, tablet, By Mouth, Daily, # 30 tablet, Refills 11, Tot. Refills 11, Maintenance, 02/18/20 9:43:00 EDT, Route to Pharmacy Electronically, [facility]/pharmacy #0957, 154.9, cm, 12/30/19 11:15:00 EDT,Height, 55.3, [...] 07/06/20 23:00:00 EST, 06/06/20 19:18:00 EST, Tablet, [facility]/pharmacy #0957, Partial fill upon patient request if the prescription is for a schedule II opioid d... Start Date: 06/06/20 Stop Date: 07/06/20 Status: Ordered ProAir HFA 90 mcg/inh inhalation aerosol with adapter 2, puffs, Inhalation, 4 times a day, PRN, # 1 each, Refills 11, Tot. Refills 11, Maintenance, 04/20/20 13:51:00 EST, Route to Pharmacy Electronically, [id number], [facility]/pharmacy #0957, 154.9, cm, 12/30/19 11:15:00 EDT, Height,... Start Date: 04/20/20 Stop Date: 04/15/21 Status: Ordered Stiolto Respimat 60 ACT 2.5 mcg-2.5 mcg/inh inhalation aerosol 2 puffs, Inhalation, Every 24 hours, to replace tiotropium, # 4 Gm, 11 Refills, Maintenance, 02/18/20 9:43:00 EDT, Aerosol, [facility]/pharmacy #0957, 154.9, cm, 12/30/19 11:15:00 EDT, Height, 55.3, kg, 04/19/19 8:36:00 EST, Dry Weight Start Date: 02/18/20 Status: Ordered Suboxone 8 mg-2 mg sublingual tablet, disintegrating 2 tablet, Sublingual, Daily, 0 Refills, Maintenance, Tablet Start Date: 10/15/12 Status: Ordered Vitamin B2 100 mg oral tablet 2 tablet = 200 mg, By Mouth, 2 times a day, Please dispense brand name with lowest co-pay, # 100 tablet, 11 Refills, Maintenance, 04/20/20 13:59:00 EST, [facility]/pharmacy #0957, 154.9, cm, 12/30/19 11:15:00 EDT, Height, 55.3, kg, 04/19/19 8:36:00 EST, Dry... Start Date: 04/20/20 Status: Ordered Problem List Condition Effective Dates Status Health Status Inform ant Age at leaving school - ged(Confirmed) Active ASCUS(Confirmed) Active 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 Sleep Report(Confirmed) 05/25/11 Active Hep C: Cleared without treatment(Confirmed) Active Clubbing(Confirmed) Active Drug abuse: [facility]) Active Esophageal reflux (GERD)(Confirmed) 05/09/12 Active [...]
--- OUTSIDE RECORDS SUMMARY | 2022-12-26 10:32 | XMS_ITS | Continuity of Care Document ---
Author Name Unknown Organization [facility] Address [address] [place] [address]- Care Team Providers Care Apparel Manager Name Role Phone Divina MARINELLI, Adalberto Redeer Primary Care Physician [facility]counter [facility] Date(s): 12/11/20 - 01/10/[address] [address]- Allergies, Adverse Reactions, Alerts Substance Reaction Severity [...] 17:04:00 EDT, Aerosol, Route to Pharmacy Electronically, [id number]... Start Date: 08/03/20 Status: Ordered BiPAP Machine [...] 56 tablet, 3 Refills, Acute, [facility], 154.9, cm, 06/11/20 9:48:00 EST, Height, 58, kg, 06/05/20 12:02:00 EST, Dry Weight Start Date: 08/03/20 Status: Ordered clonazePAM 1 mg oral tablet 1 tablet = 1 mg, By Mouth, 3 times a day, PRN Anxiety, Please dispense on/after 01/07/21, # 70 tablet, 0 Refills, Maintenance, 12/29/20 9:26:00 EDT, Tablet, [facility]/pharmacy #0957, 154.8, cm, 12/09/20 9:16:00 EDT, Height, 56, kg, 12/09/20 9:16:00 EDT, Dry W... Start Date: 12/29/20 Status: Ordered CPAP Equipment See Instructions, # 1 units, Refills 12, Tot. 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 Start Date: 06/30/17 Status: Ordered CPAP Equipment See Instructions, # 1 each, Refills 12, Tot. Refills 12, Maintenance, BiPAP supplies: Mask, tubing,filters, headgear, chin strap, heated water chamber Dx: ELSA G47.33 Length of need 99 months Please fax to [facility] fax # [phone], 07/02/20 14:50:0... Start Date: 07/02/20 Status: Ordered Eucerin Unscented topical lotion See Instructions, apply to skin daily, dispense 1 jar, # 1 each, 11 Refills, Maintenance, 09/25/19 16:37:00 EDT, [facility]/pharmacy #0957, apply to skin daily, dispense [...] Gm, 11 Refills, Maintenance, 11/05/20 17:11:00 EDT, [facility]/pharmacy #0957, 1 sprays Nasal Daily, 154.9, cm, 10/13/20 7:56:00 EDT, Height, 58, kg, 06/05/20 12:02:00 EST, Dry Weight Start Date: 11/05/20 Status: Ordered Flovent HFA 220 mcg/inh inhalation aerosol See Instructions, TAKE 2 PUFFS BY MOUTH TWICE A DAY RINSE MOUTH AND THROAT AFTER EACH USE, # 12 Unknown, 11 Refills, Soft Stop, 11/05/20 17:11:00 EDT, [facility]/pharmacy #0957, 154.9, cm, 10/13/20 7:56:00 EDT, Height, 58, kg, 06/05/20 12:02:00 EST, Dry Weight Start Date: 11/05/20 Status: Ordered Inderal LA 80 mg oral capsule, extended release 80 mg, 1, capsule, By Mouth, Daily, # 30 capsule, Refills 3, Tot. Refills 3, Maintenance, 06/23/20 10:00:00 EST, Route to Pharmacy Electronically, [facility]/pharmacy #0957, To replace Topamax. Partial fillupon patient request if the prescription is for a... Start Date: 06/23/20 Status: Ordered lisinopril 10 mg oral tablet 10 mg, 1, tablet, By Mouth, Daily, # 90 tablet, Refills 3, Tot. Refills 3, Maintenance, 09/28/20 13:15:00 EDT, Route to Pharmacy Electronically, [facility]/pharmacy #0957, 154.9, cm, 09/22/20 10:26:00 EDT, Height, 58, kg, 06/05/20 12:02:00 EST, Dry Weight Start Date: 09/28/20 Stop Date: 09/23/21 Status: Ordered nicotine 2 mg oral transmucosal lozenge 1 lozenge = 2 mg, By Mouth, Every 2 hours, # 72 each, 11 Refills, Maintenance, 10/13/20 8:35:00 EDT, [facility]/pharmacy #0957, Partial fill upon patient request [...] 11 Refills, Maintenance, 11/05/20 17:11:00 EDT, Aerosol, [facility]/pharmacy #0957, 154.9, cm, 10/13/20 7:56:00 EDT, [...] Active Clubbing(Confirmed) Active Drug abuse: Suboxone via [facility](Confirmed) Active Esophageal reflux (GERD)(Confirmed) 05/09/12 Active [...]
--- OUTSIDE RECORDS SUMMARY | 2022-12-26 10:32 | XMS_ITS | Continuity of Care Document ---
Author Name Unknown Organization [facility] Address [address] [place] [address]- Care Team Providers Care Tube Coverer Name Role Phone Divina MARINELLI, Adalberto Reeder Primary Care Physician Encounter [facility] R [id number] Date(s): 09/14/21 - 10/14/[address] [address]- Attending Physician: Angelina Mendoza Admitting Physician: AdmAngelina carlson Referring Physician: AdmtrAngelina Allergies, Adverse Reactions, Alerts Substance Reaction Severity Status Zoloft O/E - Parkinsonian tremor Ac tive Rubber Active Other Environmental Allergy 1 Active 1ELASTIC Immunizations Given and Recorded Vaccine Date Status Refusal Reason SARS-CoV-2 mRNA (awjzyht-[id number]) vax 09/14/21 Given SARS-CoV-2 (COVID-19) mRNA BNT-162b2 [...] 17:04:00 EDT, Aerosol, Route to Pharmacy Electronically, [id number]... Start Date: 08/03/20 Status: Ordered alendronate 70 mg oral tablet 1 tablet = 70 mg, By Mouth, Every week, # 12 tablet, 3 Refills, Maintenance, 09/14/21 10:11:00 EDT,Tablet, [facility]/pharmacy #0957, Partial fill upon patient request [...] 11 Refills, Maintenance, 11/05/20 17:11:00 EDT, Tablet, [facility]/pharmacy #0957, 1 tablet By Mouth 2 times [...] 56 tablet, 3 Refills, Acute, [facility], 154.9, cm, 06/11/20 9:48:00 EST, Height, 58, kg, 06/05/20 12:02:00 EST, Dry Weight Start Date: 08/03/20 Status: Ordered clonazePAM 0.25 mg oral tablet, disintegrating See Instructions, 1 tablet By Mouth 3-4 times a day. Mass Pat Reviewed. Please fill on/after 10/06/21, # 100 tablet, 1 Refills, Maintenance, 09/20/21 10:48:00 EDT, [facility], Partial fill uponpatient request if the prescription is for a sched... Start Date: 09/20/21 Status: Ordered CPAP Equipment See Instructions, # 1 units, Refills 12, Tot. 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 Start Date: 06/30/17 Status: Ordered CPAP Equipment See Instructions, # 1 each, Refills 12, Tot. Refills 12, Maintenance, BiPAP supplies: Mask, tubing,filters, headgear, chin strap, heated water chamber Dx: ELSA G47.33 Length of need 99 months Please fax to [facility] fax # [phone], 07/02/20 14:50:0... Start Date: 07/02/20 Status: Ordered [...] 11 Refills, Soft Stop, 11/05/20 17:11:00 EDT, [facility]/pharmacy #0957, 154.9, cm, 10/13/20 7:56:00 EDT, Height, 58, kg, 06/05/20 12:02:00 EST, Dry Weight Start Date: 11/05/20 Status: Ordered Inderal LA 80 mg oral capsule, extended release 80 mg, 1, capsule, By Mouth, Daily, # 30 capsule, Refills 3, Tot. Refills 3, Maintenance, 06/23/20 10:00:00 EST, Route to Pharmacy Electronically, [facility]/pharmacy #0957, To replace Topamax. Partial fillupon patient request if the prescription is for a... Start Date: 06/23/20 Status: Ordered lisinopril 10 mg oral tablet 10 mg, 1, tablet, By Mouth, Daily, # 90 tablet, Refills 3, Tot. Refills 3, Maintenance, 09/28/20 13:15:00 EDT, Route to Pharmacy Electronically, [facility]/pharmacy #0957, 154.9, cm, 09/22/20 10:26:00 EDT, Height, 58, kg, 06/05/20 12:02:00 EST, Dry Weight Start Date: 09/28/20 Stop Date: 09/23/21 Status: Ordered melatonin 3 mg oral tablet 1 tablet = 3 mg, By Mouth, Daily at bedtime, PRN Insomnia, # 60 tablet, 11 Refills, Maintenance, 03/29/21 21:06:00 EST, [facility]/pharmacy #0957, Partial fill upon patient request if the prescription is for a schedule II opioid drug., 154.8, cm, 03/23/21 11... Start Date: 03/29/21 Status: Ordered nicotine 2 mg oral transmucosal lozenge 1 lozenge = 2 mg, By Mouth, Every 2 hours, # 72 each, 11 Refills, Maintenance, 10/13/20 8:35:00 EDT, [facility]/pharmacy #0957, Partial fill upon patient request [...] each, Refills 3, Tot. Refills 3, Maintenance, [place] [facility] 1 can TID. Dx: C34.90, R63.4, 03/29/21 15:29:00 EST, Supply Start Date: 03/29/21 Status: Ordered omeprazole 20 mg oral enteric coated capsule 1 capsule = 20 mg, By Mouth, Daily, # 90 capsule, 3 Refills, Maintenance, 07/08/21 15:23:00 EST, ECCapsule, [facility]/pharmacy #0957, Partial fill upon patient request [...] Clubbing(Confirmed) Active Drug abuse: [facility]ox[facility](Confirmed) Active Esophageal reflux (GERD)(Confirmed) 05/09/12 Active [...]
--- OUTSIDE RECORDS SUMMARY | 2022-12-26 10:32 | XMS_ITS | Continuity of Care Document ---
Author Name Unknown Organization [facility] Address [address] [place] [address]- Care Team Providers Care Dulser Name Role Phone Divina MARINELLI, Adalberto Reeder Primary Care Physician [facility]counter [facility] Date[facility]s): 07/28/20 - 08/27/[address] [address]- Allergies, Adverse Reactions, Alerts Substance Reaction Severity [...] 17:04:00 EDT, Aerosol, Route to Pharmacy Electronically, [id number]... Start Date: 08/03/20 Status: Ordered Ativan 0.5 mg oral tablet 1 tablet = 0.5 mg, By Mouth, Once, order caller to procedure. May repeat X 1, # 2 tablet, 0 Refills, Soft Stop, 04/24/20 11:56:00 EST, Tablet, [facility]/pharmacy #1452, Partial fill upon patient request if the [...] 56 tablet, 3 Refills, Acute, [facility], 154.9, cm, 06/11/20 9:48:00 EST, Height, 58, kg, 06/05/20 12:02:00 EST, Dry Weight Start Date: 08/03/20 Status: Ordered clonazePAM 1 mg oral tablet 1 tablet = 1 mg, By Mouth, 3 times a day, Please fax to [facility] [address] [phone], # 90 tablet, 2 Refills, Maintenance, 09/17/18 12:46:43 EDT, Tablet Start Date: 09/17/18 Status: Ordered CPAP Equipment See Instructions, # 1 units, Refills 12, Tot. 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 Start Date: 06/30/17 Status: Ordered CPAP Equipment See Instructions, # 1 each, Refills 12, Tot. Refills 12, Maintenance, BiPAP supplies: Mask, tubing,filters, headgear, chin strap, heated water chamber Dx: ELSA G47.33 Length of need 99 months Please fax to [facility] fax # [phone], 07/02/20 14:50:0... Start Date: 07/02/20 Status: Ordered [...] 06/23/20 10:00:00 EST, Route to Pharmacy Electronically, [facility]/pharmacy #0957, To replace Topamax. Partial fillupon patient request if the prescription is for a... Start Date: 06/23/20 Status: Ordered lisinopril 10 mg oral tablet 10 mg, 1, tablet, By Mouth, Daily, # 90 tablet, Refills 3, Tot. Refills 3, Maintenance, 08/27/20 12:50:00 EDT, Route to Pharmacy Electronically, [facility]/pharmacy #0957, 154.9, cm, 06/11/20 9:48:00 EST, Height, 58, kg, 06/05/20 12:02:00 EST, Dry Weight Start Date: 08/27/20 Stop Date: 08/22/21 Status: Ordered NuLYTELY with Flavor Packs oral [...] 04/20/20 13:51:00 EST, Route to Pharmacy Electronically, [id number], [facility]/pharmacy #0957, 154.9, cm, 12/30/19 11:15:00 [...] Active Clubbing(Confirmed) Active Drug abuse: Suboxone via [facility]Confirmed) Active Esophageal reflux (GERD)(Confirmed) 05/09/12 Active JASON [...]
--- OUTSIDE RECORDS SUMMARY | 2022-12-26 10:32 | XMS_ITS | Continuity of Care Document ---
Author Name Unknown Organization [facility] Address [address] [place] [address]- Care Team Providers Care Plate And Frame Filter Operator Name Role Phone Divina MARINELLI, Adalberto Reeder Primary Care Physician Encounter [facility] Date(s): 07/16/20 - 08/15/[address] [address]- Allergies, Adverse Reactions, Alerts Substance Reaction Severity [...] 17:04:00 EDT, Aerosol, Route to Pharmacy Electronically, [id number]... Start Date: 08/03/20 Status: Ordered Ativan 0.5 mg oral tablet 1 tablet = 0.5 mg, By Mouth, Once, mobile equipment servicer to procedure. May repeat X 1, # 2 tablet, 0 Refills, Soft Stop, 04/24/20 11:56:00 EST, Tablet, [facility]/pharmacy #[id number], Partial fill upon patient request if the [...] 11 Refills, Maintenance, 02/18/20 9:43:00 EDT, Tablet, [facility]/pharmacy #0957, 1 tablet By Mouth 2 [...] 56 tablet, 3 Refills, Acute, [facility], 154.9, cm, 06/11/20 9:48:00 EST, Height, 58, kg, 06/05/20 12:02:00 EST, Dry Weight Start Date: 08/03/20 Status: Ordered clonazePAM 1 mg oral tablet 1 tablet = 1 mg, By Mouth, 3 times a day, Please fax to [facility] [address] [phone], # 90 tablet, 2 Refills, Maintenance, 09/17/18 12:46:43 EDT, Tablet Start Date: 09/17/18 Status: Ordered CPAP Equipment See Instructions, # 1 units, Refills 12, Tot. 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 Start Date: 06/30/17 Status: Ordered CPAP Equipment See Instructions, # 1 each, Refills 12, Tot. Refills 12, Maintenance, BiPAP supplies: Mask, tubing,filters, headgear, chin strap, heated water chamber Dx: ELSA G47.33 Length of need 99 months Please fax to [facility] fax # [phone], 07/02/20 14:50:0... Start Date: 07/02/20 Status: Ordered Eucerin Unscented topical lotion See Instructions, apply to skin daily, dispense 1 jar, # 1 each, 11 Refills, Maintenance, 09/25/19 16:37:00 EDT, [facility]/pharmacy #0957, apply to skin daily, dispense [...] Gm, 11 Refills, Maintenance, 02/18/20 9:43:00 EDT, [facility]/pharmacy #0957,1 sprays Nasal Daily, 154.9, cm, 12/30/19 11:15:00 EDT, Height, 55.3, kg, 04/19/19 8:36:00 EST, DryWeight Start Date: 02/18/20 Status: Ordered Flovent HFA 220 mcg/inh inhalation aerosol See Instructions, TAKE 2 PUFFS BY MOUTH TWICE A DAY RINSE MOUTH AND THROAT AFTER EACH USE, # 12 Unknown, 11 Refills, Soft Stop, 02/18/20 9:42:00 EDT, [facility]/pharmacy #0957, 154.9, cm, 12/30/19 11:15:00 EDT, Height, 55.3, kg, 04/19/19 8:36:00 EST, Dry Weight Start Date: 02/18/20 Status: Ordered Inderal LA 80 mg oral capsule, extended release 80 mg, 1, capsule, By Mouth, Daily, # 30 capsule, Refills 3, Tot. Refills 3, Maintenance, 06/23/20 10:00:00 EST, Route to Pharmacy Electronically, [facility]/pharmacy #0957, To replace Topamax. Partial fillupon patient request if the prescription is for a... Start Date: 06/23/20 Status: Ordered lisinopril 10 mg oral tablet 10 mg, 1, tablet, By Mouth, Daily, # 30 tablet, Refills 11, Tot. Refills 11, Maintenance, 02/18/20 9:43:00 EDT, Route to Pharmacy Electronically, [facility]/pharmacy #0957, 154.9, cm, 12/30/19 11:15:00 EDT,Height, [...] EST, Height Start Date: 04/12/19 Status: Ordered ProAir HFA 90 mcg/inh inhalation aerosol with adapter 2, puffs, Inhalation, 4 times a day, PRN, # 1 each, Refills 11, Tot. Refills 11, Maintenance, 04/20/20 13:51:00 EST, Route to Pharmacy Electronically, [id number], [facility]/pharmacy #0957, 154.9, cm, 12/30/19 11:15:00 EDT, Height,... Start Date: 04/20/20 Stop Date: 04/15/21 Status: Ordered Stiolto Respimat 60 ACT 2.5 mcg-2.5 mcg/inh inhalation aerosol 2 puffs, Inhalation, Every 24 hours, to replace tiotropium, # 4 Gm, 11 Refills, Maintenance, 02/18/20 9:43:00 EDT, Aerosol, [facility]/pharmacy #0957, 154.9, cm, 12/30/19 11:15:00 EDT, [...] Active Clubbing(Confirmed) Active Drug abuse: Suboxone via [facility](Confirmed) Active Esophageal reflux (GERD)(Confirmed) [...]
--- OUTSIDE RECORDS SUMMARY | 2022-12-26 10:32 | XMS_ITS | Continuity of Care Document ---
Author Name Unknown Organization [facility] Address [address] [place] [address], [address] [place] [address]- Care Team Providers Care Senior Payroll Administrator Name Role Phone Divina MARINELLI, Adalberto Reeder Primary Care Physician [facility]counter [facility] Date(s): 07/21/20 - 08/20/20 [facility] [address] [place] [address], [address] [place], [place] [address] Attending Physician: Kiley Wiseman MD Allergies, Adverse Reactions, [...] 17:04:00 EDT, Aerosol, Route to Pharmacy Electronically, [id number]... Start Date: 08/03/20 Status: Ordered Ativan 0.5 mg oral tablet 1 tablet = 0.5 mg, By Mouth, Once, bingo caller to procedure. May repeat X 1, # 2 tablet, 0 Refills, Soft Stop, 04/24/20 11:56:00 EST, Tablet, [facility]/pharmacy #[id number], Partial fill upon patient request if the [...] 11 Refills, Maintenance, 02/18/20 9:43:00 EDT, Tablet, [facility]/pharmacy #0957, 1 tablet By Mouth 2 [...] 56 tablet, 3 Refills, Acute, [facility], 154.9, cm, 06/11/20 9:48:00 EST, Height, 58, kg, 06/05/20 12:02:00 EST, Dry Weight Start Date: 08/03/20 Status: Ordered clonazePAM 1 mg oral tablet 1 tablet = 1 mg, By Mouth, 3 times a day, Please fax to [facility] on [address] [phone], # 90 tablet, 2 Refills, Maintenance, 09/17/18 12:46:43 EDT, Tablet Start Date: 09/17/18 Status: Ordered CPAP Equipment See Instructions, # 1 units, Refills 12, Tot. 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 Start Date: 06/30/17 Status: Ordered CPAP Equipment See Instructions, # 1 each, Refills 12, Tot. Refills 12, Maintenance, BiPAP supplies: Mask, tubing,filters, headgear, chin strap, heated water chamber Dx: ELSA G47.33 Length of need 99 months Please fax to [facility] fax # [phone], 07/02/20 14:50:0... Start Date: 07/02/20 Status: Ordered Eucerin Unscented topical lotion See Instructions, apply to skin daily, dispense 1 jar, # 1 each, 11 Refills, Maintenance, 09/25/19 16:37:00 EDT, [facility]/pharmacy #0957, apply to skin daily, dispense [...] Gm, 11 Refills, Maintenance, 02/18/20 9:43:00 EDT, [facility]/pharmacy #0957,1 sprays Nasal Daily, 154.9, cm, 12/30/19 11:15:00 EDT, Height, 55.3, kg, 04/19/19 8:36:00 EST, DryWeight Start Date: 02/18/20 Status: Ordered Flovent HFA 220 mcg/inh inhalation aerosol See Instructions, TAKE 2 PUFFS BY MOUTH TWICE A DAY RINSE MOUTH AND THROAT AFTER EACH USE, # 12 Unknown, 11 Refills, Soft Stop, 02/18/20 9:42:00 EDT, [facility]/pharmacy #0957, 154.9, cm, 12/30/19 11:15:00 EDT, Height, 55.3, kg, 04/19/19 8:36:00 EST, Dry Weight Start Date: 02/18/20 Status: Ordered Inderal LA 80 mg oral capsule, extended release 80 mg, 1, capsule, By Mouth, Daily, # 30 capsule, Refills 3, Tot. Refills 3, Maintenance, 06/23/20 10:00:00 EST, Route to Pharmacy Electronically, [facility]/pharmacy #0957, To replace Topamax. Partial fillupon patient request if the prescription is for a... Start Date: 06/23/20 Status: Ordered lisinopril 10 mg oral tablet 10 mg, 1, tablet, By Mouth, Daily, # 30 tablet, Refills 11, Tot. Refills 11, Maintenance, 02/18/20 9:43:00 EDT, Route to Pharmacy Electronically, [facility]/pharmacy #0957, 154.9, cm, 12/30/19 11:15:00 EDT,Height, [...] 04/20/20 13:51:00 EST, Route to Pharmacy Electronically, [id number], [facility]/pharmacy #0957, 154.9, cm, 12/30/19 11:15:00 EDT, [...] Active Clubbing(Confirmed) Active Drug abuse: Suboxone via [facility](Confirmed) Active Esophageal reflux (GERD)(Confirmed) 05/09/12 [...]
--- OUTSIDE RECORDS SUMMARY | 2022-12-26 10:32 | XMS_ITS | Continuity of Care Document ---
Author Name Unknown Organization [facility] Address [address] [place] [address]- Care Team Providers Care Developing Machine Operator Name Role Phone Divina MARINELLI, Adalberto Reeder Primary Care Physician Encounter [facility] R [id number] Date(s): 10/13/20 - 11/12/[address] [address]- Attending Physician: Angelina Mendoza Admitting Physician: Angelina [...] 17:04:00 EDT, Aerosol, Route to Pharmacy Electronically, [id number]... Start Date: 08/03/20 Status: Ordered BiPAP Machine [...] 56 tablet, 3 Refills, Acute, [facility], 154.9, cm, 06/11/20 9:48:00 EST, Height, 58, kg, 06/05/20 12:02:00 EST, Dry Weight Start Date: 08/03/20 Status: Ordered clonazePAM 1 mg oral tablet 1 tablet = 1 mg, By Mouth, 3 times a day, PRN Anxiety, Please dispense on/after 11/06/20, # 80 tablet, 0 Refills, Maintenance, 10/13/20 8:26:00 EDT, Tablet, [facility]/pharmacy #0957, 154.9, cm, 10/13/20 7:56:00 EDT, Height, 58, kg, 06/05/20 12:02:00 EST, Dry... Start Date: 10/13/20 Status: Ordered CPAP Equipment See Instructions, # 1 units, Refills 12, Tot. 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 Start Date: 06/30/17 Status: Ordered CPAP Equipment See Instructions, # 1 each, Refills 12, Tot. Refills 12, Maintenance, BiPAP supplies: Mask, tubing,filters, headgear, chin strap, heated water chamber Dx: ELSA G47.33 Length of need 99 months Please fax to [facility] fax # [phone], 07/02/20 14:50:0... Start Date: 07/02/20 Status: Ordered Eucerin Unscented topical lotion See Instructions, apply to skin daily, dispense 1 jar, # 1 each, 11 Refills, Maintenance, 09/25/19 16:37:00 EDT, [facility]/pharmacy #0957, apply to skin daily, dispense [...] Gm, 11 Refills, Maintenance, 11/05/20 17:11:00 EDT, [facility]/pharmacy #0957, 1 sprays Nasal Daily, 154.9, cm, 10/13/20 7:56:00 EDT, Height, 58, kg, 06/05/20 12:02:00 EST, Dry Weight Start Date: 11/05/20 Status: Ordered Flovent HFA 220 mcg/inh inhalation aerosol See Instructions, TAKE 2 PUFFS BY MOUTH TWICE A DAY RINSE MOUTH AND THROAT AFTER EACH USE, # 12 Unknown, 11 Refills, Soft Stop, 11/05/20 17:11:00 EDT, [facility]/pharmacy #0957, 154.9, cm, 10/13/20 7:56:00 EDT, Height, 58, kg, 06/05/20 12:02:00 EST, Dry Weight Start Date: 11/05/20 Status: Ordered Inderal LA 80 mg oral capsule, extended release 80 mg, 1, capsule, By Mouth, Daily, # 30 capsule, Refills 3, Tot. Refills 3, Maintenance, 06/23/20 10:00:00 EST, Route to Pharmacy Electronically, [facility]/pharmacy #0957, To replace Topamax. Partial fillupon patient request if the prescription is for a... Start Date: 06/23/20 Status: Ordered lisinopril 10 mg oral tablet 10 mg, 1, tablet, By Mouth, Daily, # 90 tablet, Refills 3, Tot. Refills 3, Maintenance, 09/28/20 13:15:00 EDT, Route to Pharmacy Electronically, [facility]/pharmacy #0957, 154.9, cm, 09/22/20 10:26:00 EDT, Height, 58, kg, 06/05/20 12:02:00 EST, Dry Weight Start Date: 09/28/20 Stop Date: 09/23/21 Status: Ordered nicotine 2 mg oral transmucosal lozenge 1 lozenge = 2 mg, By Mouth, Every 2 hours, # 72 each, 11 Refills, Maintenance, 10/13/20 8:35:00 EDT, [facility]/pharmacy #0957, Partial fill upon patient [...] 11 Refills, Maintenance, 11/05/20 17:11:00 EDT, Aerosol, [facility]/pharmacy #0957, 154.9, cm, 10/13/20 7:56:00 [...] leaving school - ged(Confirmed) Active ASCUS(Confirmed) Active Cheko-Owoten respiration: s ee 05/25/11 Sleep Report(Confirmed) 05/25/11 Active Hep C: Cleared without treatment(Confirmed) Active Clubbing(Confirmed) Active Drug abuse: [facility]oxone via [facility](Confirmed) Active Esophageal reflux (GERD)(Confirmed) 05/09/12 Active [...]
--- OUTSIDE RECORDS SUMMARY | 2022-12-26 10:32 | XMS_ITS | Continuity of Care Document ---
Author Name Unknown Organization [facility] Address [address] [place] [address]- Care Team Providers Care Editor Producer Name Role Phone Mavis Allen Primary Care Physician [facility] Date[facility]s): 09/22/22 - 10/22/22 [facility] [address] [place] [address]- Attending Physician: Angelina Mendoza Admitting Physician: Angelina Mendoza Referring Physician: AdmtrAngelina Allergies, Adverse Reactions, Alerts Substance Reaction Severity Status Zoloft O/E - Parkinsonian tremor Ac tive Rubber Active Other Environmental Allergy 1 Active 1ELASTIC Immunizations Given and Recorded Vaccine Date Status Refusal Reason [id number] 12y+ bivalent booster vax 05/11/22 Recorded influenza [...] vaccine, inactivated 04/23/08 Give n SARS-CoV-2 mRNA (yeojfhn-gmzq-xxrjz) vax 12/14/21 Given SARS-CoV-2 mRNA (wbnxbon-zylo-yjdvj) vax 09/14/21 Given SARS-CoV-2 (COVID-19) mRNA BNT-162b2 [...] Refills, Maintenance, 05/26/22 19:48:00 EST, [facility], 154.8, cm, 05/25/22 13:21:00 EST, Height, 56, [...] Refills, Maintenance, 07/21/22 6:46:00 EDT, [facility], 90, TAKE 1 TABLET BY MOUTH TWICE [...] 0 Refills, Maintenance, 07/11/22 15:10:00 EST, [facility]/pharmacy #0957, Partial fill upon patient [...] fax to [facility], [phone],... Start Date: 06/30/17 Status: Ordered CPAP Equipment See Instructions, # 1 each, Refills 12, Tot. Refills 12, Maintenance, BiPAP supplies: Mask, tubing,filters, headgear, chin strap, heated water chamber Dx: ELSA G47.33 Length of need 99 months Please fax to [facility] fax # [phone], 07/02/20 14:50:0... Start Date: 07/02/20 Status: Ordered cyanocobalamin 500 mcg oral tablet 1 tablet = 500 mcg, By Mouth, Daily, on empty stomach, # 90 tablet, 3 Refills, Maintenance, 03/26/21 20:06:00 EST, Tablet, [facility]/pharmacy #0957, Partial fill upon patient request if the prescription isfor a schedule II opioid drug., 154.8, cm, 03/23/21... Start Date: 03/26/21 Status: Ordered Flovent HFA 220 mcg/inh inhalation aerosol 2 puffs, Inhalation, 2 times a day, AND THROAT AFTER EACH USE., # 12 each, 11 Refills, [facility], 154.8, cm, 09/14/21 9:50:00 EDT, Height, 56, kg, 12/09/20 9:16:00 EDT, Dry Weight Start Date: 11/17/21 Status: Ordered fluticasone 50 mcg/inh nasal spray See Instructions, USE 1 SPRAY IN EACH NOSTRIL DAILY, # 48 mL, 11 Refills, [facility], 90, USE 1 SPRAY IN EACH NOSTRIL DAILY, 154.8, cm, 09/14/21 9:50:00 EDT, Height, 56, kg, 12/09/20 9:16:00 EDT, Dry Weight Start Date: 11/15/21 Status: Ordered lisinopril 10 mg oral tablet 1, tablet, By Mouth, Daily, # 90 tablet, Refills 3, Route to Pharmacy Electronically, [facility], 154.8, cm, 09/14/21 9:50:00 EDT, Height, 56, kg, 12/09/20 9:16:00 EDT, Dry Weight Start Date: 12/07/21 Status: Ordered melatonin 3 mg oral tablet 2 tablet = 6 mg, By Mouth, Daily at bedtime, PRN Insomnia, # 60 tablet, 2 Refills, Maintenance, 08/04/22 12:21:00 EDT, [facility]/pharmacy #0957, Partial fill upon patient [...] 11 Refills, Maintenance, 10/13/20 8:35:00 EDT, [facility]/pharmacy #0957, Partial fill upon patient request if the prescription is for a schedule II opioid drug., 1 lozenge By Mouth Every 2 hours, 154.9,... Start Date: 10/13/20 Status: Ordered Nutritional Supplements See Instructions, # 90 each, Refills 3, Tot. Refills 3, Maintenance, [facility] 1 can TID. Dx: C34.90, R63.4, 03/29/21 15:29:00 EST, Supply Start Date: 03/29/21 Status: Ordered omeprazole 20 mg oral enteric coated capsule 1 capsule = 20 mg, By Mouth, Daily, # 90 capsule, 0 Refills, Maintenance, 08/01/22 14:52:00 EDT, ECCapsule, [facility]/pharmacy #0957, Partial fill upon patient [...] Refills, Maintenance, 07/21/22 6:46:00 EDT, [facility], 154, cm, 06/22/22 15:01:00 EST, Height, 56, [...] Confirmed Active Drug abuse: Suboxone via [facility] Confirmed Active Esophageal reflux (GERD) Confirmed 05/09/12 Active JASON (generalized anxiety disorder) Confirmed Active HPV: Positive in 07/15; 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, negative in 10/16 Confirmed Active Hypertension Confirmed 08/23/10 Active Lung cancer Confirmed Active Lung nodules Confirmed Active Opioid use disorder Confirmed Active Osteoporosis Confirmed Active Pain in finger of right hand Confirmed Active Palpitations Confirmed Active *[id number] Supervisor Of Guidance And Testing Sandra Rob Confirmed Active Pelvic mass Confirmed [...] Care Team Personnel Name: Mavis Allen Position: [facility] Associate Professional Member Role: PCP Address: Address: [address] [place] [address]. [address] [place] [address]- Care Team Related Persons Name: JOSELIN SCHMIDT Address: home [address] [place] [address] Name: ANALISA ALYSE Address: home [address] [place] [address] Name: NO, ONE AT THIS TIME
--- OUTSIDE RECORDS SUMMARY | 2022-12-26 10:32 | XMS_ITS | Continuity of Care Document ---
Author Name Unknown Organization [facility] Address [address] [place] [address]- Care Team Providers Care Framework Developer Name Role Phone Mavis Allen Primary Care Physician [facility] Date[facility]s): 07/13/22 - 08/12/22 [facility] [address] [place] [address]- Allergies, Adverse Reactions, Alerts Substance Reaction Severity Status Zoloft O/E - Parkinsonian tremor Ac tive Rubber Active Other Environmental Allergy 1 Active 1ELASTIC Immunizations Given and Recorded Vaccine Date Status Refusal Reason [id number] 12y+ bivalent booster vax 05/11/22 Recorded influenza [...] vaccine, inactivated 04/23/08 Give n SARS-CoV-2 mRNA (raksqhn-lxgx-qckzt) vax 12/14/21 Given SARS-CoV-2 mRNA (ldlsjfr-ihwn-ydjzm) vax 09/14/21 Given SARS-CoV-2 (COVID-19) mRNA BNT-162b2 [...] Refills, Maintenance, 05/26/22 19:48:00 EST, [facility], 154.8, cm, 05/25/22 13:21:00 EST, Height, 56, [...] tablet, 0 Refills, Maintenance, 07/21/22 6:46:00 EDT, [facility] 147[facility], 90, TAKE 1 TABLET BY MOUTH TWICE [...] tablet, 0 Refills, Maintenance, 07/11/22 15:10:00 EST, [facility]/pharmacy #0957, Partial fill upon patient [...] Please fax to [facility], [phone],... Start Date: 06/30/17 Status: Ordered CPAP Equipment See Instructions, # 1 each, Refills 12, Tot. Refills 12, Maintenance, BiPAP supplies: Mask, tubing,filters, headgear, chin strap, heated water chamber Dx: ELSA G47.33 Length of need 99 months Please fax to [facility] fax # [phone], 07/02/20 14:50:0... Start Date: 07/02/20 Status: Ordered cyanocobalamin 500 mcg oral tablet 1 tablet = 500 mcg, By Mouth, Daily, on empty stomach, # 90 tablet, 3 Refills, Maintenance, 03/26/21 20:06:00 EST, Tablet, [facility]/pharmacy #0957, Partial fill upon patient request if the prescription isfor a schedule II opioid drug., 154.8, cm, 03/23/21... Start Date: 03/26/21 Status: Ordered Flovent HFA 220 mcg/inh inhalation aerosol 2 puffs, Inhalation, 2 times a day, AND THROAT AFTER EACH USE., # 12 each, 11 Refills, [facility], 154.8, cm, 09/14/21 9:50:00 EDT, Height, 56, kg, 12/09/20 9:16:00 EDT, Dry Weight Start Date: 11/17/21 Status: Ordered fluticasone 50 mcg/inh nasal spray See Instructions, USE 1 SPRAY IN EACH NOSTRIL DAILY, # 48 mL, 11 Refills, [facility] 294[facility], 90, USE 1 SPRAY IN EACH NOSTRIL DAILY, 154.8, cm, 09/14/21 9:50:00 EDT, Height, 56, kg, 12/09/20 9:16:00 EDT, Dry Weight Start Date: 11/15/21 Status: Ordered hydrOXYzine hydrochloride 25 mg oral tablet See Instructions, 1 tablet by mouth as needed at bedtime., # 1 tablet, 0 Refills, Acute 09/03/22 17:31:00 EDT, 08/03/22 17:30:00 EDT, [facility], Partial fill upon patient request if the prescription is for a schedule II opioid drug., 154, cm,... Start Date: 08/03/22 Stop Date: 09/03/22 Status: Ordered lisinopril 10 mg oral tablet 1, tablet, By Mouth, Daily, # 90 tablet, Refills 3, Route to Pharmacy Electronically, [facility] 22532, 154.8, cm, 09/14/21 9:50:00 EDT, Height, 56, kg, 12/09/20 9:16:00 EDT, Dry Weight Start Date: 12/07/21 Status: Ordered melatonin 3 mg oral tablet 2 tablet = 6 mg, By Mouth, Daily at bedtime, PRN Insomnia, # 60 tablet, 2 Refills, Maintenance, 08/04/22 12:21:00 EDT, [facility]/pharmacy #0957, Partial fill upon [...] each, Refills 3, Tot. Refills 3, Maintenance, [place] Ensure 1 can TID. Dx: C34.90, R63.4, 03/29/21 15:29:00 EST, Supply Start Date: 03/29/21 Status: Ordered omeprazole 20 mg oral enteric coated capsule 1 capsule = 20 mg, By Mouth, Daily, # 90 capsule, 0 Refills, Maintenance, 08/01/22 14:52:00 EDT, ECCapsule, [facility]/pharmacy #0957, Partial fill upon [...] Refills, Maintenance, 07/21/22 6:46:00 EDT, [facility], 154, cm, 06/22/22 15:01:00 EST, Height, 56, [...] Clubbing Confirmed Active Drug abuse: Suboxone via [facility] Confirmed Active Esophageal reflux (GERD) Confirmed 05/09/12 Active JASON (generalized anxiety disorder) Confirmed Active HPV: Positive in 07/15; 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, negative in 10/16 Confirmed Active Hypertension Confirmed 08/23/10 Active Lung cancer Confirmed Active Lung nodules Confirmed Active Opioid use disorder Confirmed Active Osteoporosis Confirmed Active Pain in finger of right hand Confirmed Active Palpitations Confirmed Active *[id number] paige Escamilla Confirmed Active Pelvic mass Confirmed [...] Care Team Personnel Name: Mavis Allen Position: [facility] Associate Professional Member Role: PCP Address: Address: [address] [facility]. [address]rd [place] [address]- Care Team Related Persons Name: ROXANA JOSELIN Address: home [address] [place] [address] Name: ALYSE HAUSER Address: home [address] [place] [address] Name: NO, ONE AT THIS TIME
--- OUTSIDE RECORDS SUMMARY | 2022-12-26 10:32 | XMS_ITS | Continuity of Care Document ---
Author Name Unknown Organization [facility] Address [address] [place] [address]- Care Team Providers Care Flat Bed Knitter Name Role Phone Mavis Allen Primary Care Physician [facility]): 11[facility]/22 - 12/24/22 [facility] [address] [place] [address]- Allergies, Adverse Reactions, Alerts Substance Reaction Severity Status Zoloft O/E - Parkinsonian tremor Ac tive Other Environmental Allergy 1 Active Rubber Active 1ELASTIC Immunizations Given and Recorded Vaccine Date Status Refusal Reason [id number] 12y+ bivalent booster vax 05/11/22 Recorded influenza [...] vaccine, inactivated 04/23/08 Give n SARS-CoV-2 mRNA (qnmcflp-lyon-cpwjv) vax 12/14/21 Given SARS-CoV-2 mRNA (zdmzhsk-ywim-jgcwt) vax 09/14/21 Given SARS-CoV-2 (COVID-19) mRNA BNT-162b2 [...] 1 Refills, Maintenance, 11/18/22 15:43:00 EDT, Tablet, [facility]/pharmacy #0957, Partial fill upon [...] 12/15/22 16:24:00 EDT, Route to Pharmacy Electronically, [facility]/pharmacy #0957, Partial fill upon patient request if the p... Start Date: 12/15/22 Status: Ordered calcium-vitamin D 600 mg-400 intl units oral tablet 1 tablet, By Mouth, 2 times a day with meals, # 180 tablet, 0 Refills, Maintenance, 12/21/22 11:39:00 EDT, [facility] 16[facility], 90, TAKE 1 TABLET BY MOUTH TWICE [...] Refills, Maintenance, 12/21/22 17:04:00 EDT, DIS Tablet, [facility], Partial fill upon patient request if the prescription is for a placido... Start Date: 12/21/22 Status: Ordered docusate sodium 100 mg oral capsule 1 capsule = 100 mg, By Mouth, 3 times a day, PRN as needed for constipation, # 90 capsule, 0 Refills, Maintenance, 12/15/22 16:26:00 EDT, Capsule, [facility], Partial fill upon patient request if the prescription is for a schedule II opioid dr... Start Date: 12/15/22 Status: Ordered Flovent HFA 220 mcg/inh inhalation aerosol 2 puffs, Inhalation, 2 times a day, AND THROAT AFTER EACH USE., # 12 each, 11 Refills, [facility] 59564, 154.8, cm, 09/14/21 9:50:00 EDT, Height, 56, kg, 12/09/20 9:16:00 EDT, Dry Weight Start Date: 11/17/21 Status: Ordered fluticasone 50 mcg/inh nasal spray See Instructions, USE 1 SPRAY IN EACH NOSTRIL DAILY, # 48 mL, 11 Refills, [facility] 0[facility], 90, USE 1 SPRAY IN EACH NOSTRIL DAILY, 154.8, cm, 09/14/21 9:50:00 EDT, Height, 56, kg, 12/09/20 9:16:00 EDT, Dry Weight Start Date: 11/15/21 Status: Ordered lidocaine-prilocaine 2.5%-2.5% topical cream 1 application, Topically, Once, apply thin layer over healed port site up to 60 minutes prior to port use, # 30 Gm, 1 Refills, Soft Stop, 12/08/22 16:31:00 EDT, Cream, [facility]/pharmacy #0957, Partial fill upon patient request if the prescription is for a... Start Date: 12/08/22 Status: Ordered lisinopril 10 mg oral tablet 1, tablet, By Mouth, Daily, # 90 tablet, Refills 3, Route to Pharmacy Electronically, [facility] 95134, 154.8, cm, 09/14/21 9:50:00 EDT, Height, 56, kg, 12/09/20 9:16:00 EDT, Dry Weight Start Date: 12/07/21 Status: Ordered melatonin 3 mg oral tablet 2 tablet = 6 mg, By Mouth, Daily at bedtime, PRN Insomnia, # 60 tablet, 2 Refills, Maintenance, 08/04/22 12:21:00 EDT, [facility]/pharmacy #0957, Partial fill upon [...] 30 tablet, 2 Refills, Maintenance, 12/09/2315:31:00 EDT, [facility]/pharmacy #0957, Partial fill upon [...] 30 tablet, 1 Refills, Maintenance, 12/09/2315:31:00 EDT, [facility]/pharmacy #0957, Partial fill upon patient request if the prescription is for a schedule II opioid drug., 153.7, cm, 11/25/22 9:09:00... Start Date: 12/08/22 Status: Ordered Senna-Time 8.6 mg oral tablet 1 tablet = 8.6 mg, By Mouth, Daily at bedtime, PRN as needed for constipation, # 90 tablet, 0 Refills, Acute 12/16/23 16:26:00 EDT, 12/15/22 16:25:00 EDT, Tablet, [facility]/pharmacy #0957, Partial fill upon [...] Refills, Maintenance, 12/15/22 16:25:00 EDT, XR Capsule, [facility], Partial fill upon patient request [...] Confirmed Active Papule of skin Confirmed Active *[id number] Sports Official Sandra Rob Confirmed Active Pelvic mass Confirmed [...] Primary Care Nurse Name: Mavis Allen Position: [facility] Associate Professional Member Role: PCP Address: Address: [address] [place] [address]. 3rd Floor [facility] [place] [address]- Name: Allyn Rhoades Position: [facility] RN Member Role: Primary Care Nurse Name: Yoselin Gaxiola RN Position: [facility] Onco RN Member Role: Primary Care Nurse Name: Saumya Brown RN Position: [facility] RN Member Role: Primary Care Nurse Name: Praveen Sepulveda RN Position: [facility] RN Member Role: Primary Care Nurse Name: Marina Dumont RN Position: [facility] RN Member Role: Primary Care Nurse Name: Delmi Kelly RN Position: [facility] RN Member Role: Primary Care Nurse Care Team Related Persons Name: JOSELIN SCHMIDT Address: home [address] [place] [address] Name: ALYSE HAUSER Address: home [address] [place] [address] Name: NO, ONE AT THIS TIME
--- OUTSIDE RECORDS SUMMARY | 2022-12-26 10:32 | XMS_ITS | Continuity of Care Document ---
Author Name Unknown Organization [facility] Address [address] [place] [address]- Care Team Providers Care Railroad Auditor Name Role Phone Divina MARINELLI, Adalberto Reeder Primary Care Physician Encounter [facility] [id number] Date(s): 05/28/19 - 06/07/[address] [address]- [facility] Attending Physician: Angelina Mendoza Admitting Physician: Angelina Mendoza Referring Physician: AdmnAgelina carlson Allergies, Adverse Reactions, Alerts Substance Reaction Severity [...] 7Admin Note: vis 8Admin Note: vis Medications Aerochamber See Instructions, # 1 applicator, Refills [...] 11 Refills, Maintenance, 05/28/19 12:01:00 EST, Tablet, [facility]/pharmacy #0957, 1 tablet By Mouth 2 [...] 03/19/19 10:53:39 EST, Route to Pharmacy Electronically, [id number], [facility]/pharmacy #1026 Start Date: 03/19/19 Status: Ordered cetirizine 10 mg oral tablet 1 tablet = 10 mg, By Mouth, Daily, PRN Other, PRN allergies, # 30 tablet, 11 Refills, Maintenance, 05/28/19 12:01:00 EST, Tablet, [facility]/pharmacy #0957, 154.9, cm, 05/28/19 11:40:00 EST, [...] times a day, Please fax to [facility] on [facility] [phone], # 90 tablet, 2 Refills, Maintenance, 09/17/18 12:46:43 EDT, Tablet Start Date: 09/17/18 Status: Ordered CPAP Equipment See Instructions, # 1 units, Refills 12, Tot. Refills 12, Maintenance, BiPAP supplies: Mask, tubing, filters, headgear, chin strap, heated water chamber Dx: ELSA G47.33 Length of need 99 months Pleasefax to [facility], [phone], 09/04/18 15:13:48 EDT, Co... Start Date: 09/04/18 Status: Ordered CPAP Equipment See Instructions, # 1 units, Refills 12, Tot. Refills 12, Maintenance, BIPAP supplies: Mask, tubing, filters, headgear, chin strap, water chamber 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) Lengthof need 99 months Please fax to [facility], [phone],... Start Date: 06/30/17 Status: Ordered diphenhydrAMINE 25 [...] Gm, 11 Refills, Maintenance, 05/28/19 12:01:00 EST, [facility]/pharmacy #0957, 1 sprays Nasal Daily, 154.9, cm, 05/28/19 11:40:00 EST, Height, 55.3, kg, 04/19/19 8:36:00 EST, Dry Weight Start Date: 05/28/19 Status: Ordered Flovent HFA 220 mcg/inh inhalation aerosol See Instructions, # 12 Unknown, Refills 11 Tot. Refills 11, TAKE 2 PUFFS BY MOUTH TWICE A DAY [place] AND THROAT AFTER EACH USE, [facility]/pharmacy #1026 Start Date: 03/15/19 Status: Ordered ibuprofen 600 mg oral tablet 600 mg, 1, tablet, By Mouth, 3 times a day, PRN, with food, # 270 tablet, Refills 11, Tot. Refills 11, Maintenance, as needed for pain, 06/27/17 17:45:19, Route to Pharmacy Electronically, [id number], [facility]/pharmacy #1026 Start Date: 06/27/17 Status: Ordered lisinopril 10 mg oral tablet 10 mg, 1, tablet, By Mouth, Daily, # 30 tablet, Refills 11, Tot. Refills 11, Maintenance, 05/28/19 12:01:00 EST, Route to Pharmacy Electronically, [facility]/pharmacy #0957, 154.9, cm, 05/28/19 11:40:00 EST, [...] 05/28/19 12:01:00 EST, Route to Pharmacy Electronically, [id number], [facility]/pharmacy #0957, 154.9, cm, 05/28/19 11:40:00 EST, [...] Clubbing(Confirmed) [facility]: [facility] Active Esophageal reflux (GERD)(Confirmed) 05/09/12 Active [...]
--- OUTSIDE RECORDS SUMMARY | 2022-12-26 10:32 | XMS_ITS | Continuity of Care Document ---
Author Name Unknown Organization [facility] Address [address] [place] [address]- Care Team Providers Care Forder Operator Name Role Phone Divina MARINELLI, Adalberto Reeder Primary Care Physician Encounter [facility] Date(s): 07/08/21 - 08/07/[address] [address]- Allergies, Adverse Reactions, Alerts Substance Reaction Severity [...] Vaccine Live 02/23/20 Recorded Zoster Vaccine Live 1/16/17 Recorded Influenza Virus Vaccine (oldterm) 02/23/20 Recorde [...] 17:04:00 EDT, Aerosol, Route to Pharmacy Electronically, [id number]... Start Date: 08/03/20 Status: Ordered BiPAP Machine [...] 56 tablet, 3 Refills, Acute, [facility], 154.9, cm, 06/11/20 9:48:00 EST, Height, 58, kg, 06/05/20 12:02:00 EST, Dry Weight Start Date: 08/03/20 Status: Ordered clonazePAM 0.5 mg oral tablet See Instructions, 1 tablet By Mouth 2 times a day. Mass Pat Reviewed. Please fill on/after 08/06/21, # 50 tablet, 0 Refills, Maintenance, 07/28/21 10:24:00 EDT, [facility]/pharmacy #0957, Partial fill upon patient request if the prescription is for a schedule... Start Date: 07/28/21 Status: Ordered CPAP Equipment See Instructions, # 1 units, Refills 12, Tot. Refills 12, Maintenance, BIPAP supplies: Mask, tubing, filters, headgear, chin strap, water chamber 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) Lengthof need 99 months Please fax to [facility], [phone],... Start Date: 06/30/17 Status: Ordered CPAP Equipment See Instructions, # 1 each, Refills 12, Tot. Refills 12, Maintenance, BiPAP supplies: Mask, tubing,filters, headgear, chin strap, heated water chamber Dx: ELSA G47.33 Length of need 99 months Please fax to [facility] fax # [phone], 07/02/20 14:50:0... Start Date: 07/02/20 Status: Ordered cyanocobalamin 500 mcg oral tablet 1 tablet = 500 mcg, By Mouth, Daily, on empty stomach, # 90 tablet, 3 Refills, Maintenance, 03/26/21 20:06:00 EST, Tablet, [facility]/pharmacy #0957, Partial [...] each, 11 Refills, Maintenance, 10/13/20 8:35:00 EDT, [facility]/pharmacy #0957, Partial [...] each, Refills 3, Tot. Refills 3, Maintenance, [place] Ensure 1 can TID. Dx: C34.90, R63.4, 03/29/21 15:29:00 EST, Supply Start Date: 03/29/21 Status: Ordered omeprazole 20 mg oral enteric coated capsule 1 capsule = 20 mg, By Mouth, Daily, # 90 capsule, 3 Refills, Maintenance, 07/08/21 15:23:00 EST, ECCapsule, [facility]/pharmacy #0957, Partial [...] Active Clubbing(Confirmed) Active Drug abuse: Suboxone via [facility](Confirmed) Active Esophageal reflux (GERD)(Confirmed) 05/09/12 [...]
--- OUTSIDE RECORDS SUMMARY | 2022-12-26 10:33 | XMS_ITS | Continuity of Care Document ---
Author Name Unknown Organization [facility] Address [address] [place] [address], [address] [place] [address]- Care Team Providers Care Supervisor Propellant Charge Loading Name Role Phone Epifanio SMALLWOOD, Mavis Mak Primary Care Physician Encounter [facility] Date(s): 11/24/22 - 12/01/22 [facility] [address] [place] [address], [address] [place], [place] [address] Attending Physician: Qamar Macias MD Referring Physician: Mavsi Allen Allergies, Adverse Reactions, Alerts Substance Reaction Severity Status Zoloft O/E - Parkinsonian tremor Ac tive Rubber Active Other Environmental Allergy 1 Active 1ELASTIC Immunizations Given and Recorded Vaccine Date Status Refusal Reason [id number] 12y+ bivalent booster vax 05/11/22 Recorded influenza [...] vaccine, inactivated 04/23/08 Give n SARS-CoV-2 mRNA (jlziiya-cmtc-rasrb) vax 12/14/21 Given SARS-CoV-2 mRNA (tmgwsgt-bxei-hjsnb) vax 09/14/21 Given SARS-CoV-2 (COVID-19) mRNA BNT-162b2 vac 11/16/21 Recorded SARS-CoV-2 (COVID-19) mRNA BNT-162b2 vac 08/04/20 [...] 1 Refills, Maintenance, 11/18/22 15:43:00 EDT, Tablet, [facility]/pharmacy #0957, Partial fill upon patient request if the prescription is for a schedule II opioid drug., 154.94, cm, 11/18/22 15:19:00 EDT, H... Start Date: 11/18/22 Status: Ordered calcium-vitamin D 600 mg-400 intl units oral tablet 1 tablet, By Mouth, 2 times a day with meals, # 180 tablet, 0 Refills, Maintenance, 11/17/22 12:06:00 EDT, [facility], 90, TAKE 1 TABLET BY MOUTH TWICE A DAY WITH FOOD, 154.94, cm, 11/04/22 16:07:00 EDT, Height, 57.8, kg, 10/27/22 17:33:00 EDT, D... Start Date: 11/17/22 Status: Ordered clonazePAM 0.25 mg oral tablet, disintegrating 1 tablet = 0.25 mg, By Mouth, 2 times a day, PRN Anxiety, as needed for severe anxiety only, # 12 tablet, 0 Refills, Maintenance, 11/18/22 16:36:00 EDT, DIS Tablet, [facility]/pharmacy #0957, Partial fill upon patient request if the prescription is for a placido... Start Date: 11/18/22 Status: Ordered docusate sodium 100 mg oral capsule 0 Refills, Maintenance, 11/18/22 16:15:00 EDT, Partial fill upon patient request if the prescription is for a schedule II opioid drug. Start Date: 11/18/22 Status: Ordered Flovent HFA 220 mcg/inh inhalation aerosol 2 puffs, Inhalation, 2 times a day, AND THROAT AFTER EACH USE., # 12 each, 11 Refills, [facility], 154.8, cm, 09/14/21 9:50:00 EDT, Height, 56, kg, 12/09/20 9:16:00 EDT, Dry Weight Start Date: 11/17/21 Status: Ordered fluticasone 50 mcg/inh nasal spray See Instructions, USE 1 SPRAY IN EACH NOSTRIL DAILY, # 48 mL, 11 Refills, [facility], 90, USE 1 SPRAY IN EACH NOSTRIL DAILY, 154.8, cm, 09/14/21 9:50:00 EDT, Height, 56, kg, 12/09/20 9:16:00 EDT, Dry Weight Start Date: 11/15/21 Status: Ordered lisinopril 10 mg oral tablet 1, tablet, By Mouth, Daily, # 90 tablet, Refills 3, Route to Pharmacy Electronically, [facility], 154.8, cm, 09/14/21 9:50:00 EDT, Height, 56, kg, 12/09/20 9:16:00 EDT, Dry Weight Start Date: 12/07/21 Status: Ordered melatonin 3 mg oral tablet 2 tablet = 6 mg, By Mouth, Daily at bedtime, PRN Insomnia, # 60 tablet, 2 Refills, Maintenance, 08/04/22 12:21:00 EDT, [facility]/pharmacy #0957, Partial fill [...] opioid drug. Start Date: 11/18/22 Status: Ordered omeprazole 20 mg oral enteric coated capsule 1 capsule = 20 mg, By Mouth, Daily, # 90 capsule, 0 Refills, Maintenance, 08/01/22 14:52:00 EDT, ECCapsule, [facility]/pharmacy #0957, Partial fill upon patient request if the prescription is for a schedule II opioid drug., 154, cm, 06/22/22 15:01:00 EST, H... Start Date: 08/01/22 Status: Ordered Senna-Time 8.6 mg oral tablet 0 Refills, Maintenance, 11/18/22 16:15:00 EDT, Partial fill upon patient request if the prescription is for a schedule II opioid drug. Start Date: 11/18/22 Status: Ordered Stiolto Respimat 60 ACT 2.5 [...] Confirmed Active Papule of skin Confirmed Active *[phone] Squeak Rattle And Leak Repairer Sandra Rob Confirmed Active Pelvic mass Confirmed Active Emphysema of lung: mixed emphysema/UIP Confirmed Active Major depressive disorder, [facility] Confirmed Active Resting tremor Confirmed Active Tobacco abuse Confirmed Active Tubular adenoma of colon 1 Confirmed 04/22/19 Active 1repeat screening colonoscopy in 2023 Vital Signs Most recent to oldest [Reference Range]: 1 Height 154.94 cm (11/24/22 11:42 AM) Weight 56.4 kg (11/24/22 11:42 AM) Body Mass Index [18.5-24.99 kg/m2] 23.49 kg/m2 (11/24/22 11:42 AM) Social History Social History Type Response Smoking Status 10 or more cigarette s (1/2 pack or more)/day in last 30 days; Interested in cessation: No; Patient wants NRT during admission No entered on: 11/25/22 Sex Patient Care team information Care Team Personnel Name: Joyce Brice RN Position: [facility] RN Supv Member Role: Primary Care Nurse Name: Ryan Wilson RN Position: S RN Member Role: Primary Care Nurse Name: Mavis Allen Position: [facility] PCO Associate Professional Member Role: PCP Address: Address: [address] [place] [address]. [address] [place] [address]- Name: Allyn Rhoades Position: S RN Member Role: Primary Care Nurse Name: Saumya Brown RN Position: S RN Member Role: Primary Care Nurse Name: Praveen Sepulveda RN Position: S RN Member Role: Primary Care Nurse Name: Marina Dumont RN Position: [facility] RN Member Role: Primary Care Nurse Name: Delmi Kelly RN Position: [facility] RN Member Role: Primary Care Nurse Care Team Related Persons Name: JOSELIN SCHMIDT Address: home [address] [place] [address] Name: ALYSE HAUSER Address: home [address] [place] [address] Name: NO, ONE AT THIS TIME
--- OUTSIDE RECORDS SUMMARY | 2022-12-26 10:33 | XMS_ITS | Continuity of Care Document ---
Author Name Unknown Organization [facility] Address [address] [place] [address]- Care Team Providers Care Car Wash Attendant Name Role Phone Gideon Nice CORK PRESSING MACHINE OPERATOR, Jennyfer Primary Care Physician Encounter [facility] Date(s): 02/15/22 - 06/15/22 [facility] [address] [place], [place] [address] Attending Physician: Marie Muir MD Admitting Physician: Marie Muir MD Referring Physician: Adalberto Murcia MD Allergies, Adverse Reactions, Alerts Substance Reaction Severity Status Zoloft O/E - Parkinsonian tremor Ac tive Rubber Active Other Environmental Allergy 1 Active 1ELASTIC Immunizations Given and Recorded Vaccine Date Status Refusal Reason influenza virus vaccine, inactivated 02/16/22 Jatinder rded [...] vaccine, inactivated 04/23/08 Give n SARS-CoV-2 mRNA (kxfojkm-kbtx-feqzd) vax 12/14/21 Given SARS-CoV-2 mRNA (xeudrac-peol-fkglo) vax 09/14/21 Given SARS-CoV-2 (COVID-19) mRNA BNT-162b2 [...] Refills, Maintenance, 05/26/22 19:48:00 EST, [facility], 154.8, cm, 05/25/22 13:21:00 EST, Height, 56, [...] with meals, # 180 tablet, 1 Refills, [facility], 90, TAKE 1 TABLET BY MOUTH TWICE [...] tablet, 0 Refills, Maintenance, 05/12/22 8:22:00 EST, [facility]/pharmacy #0905, Partial fill upon patient request if the prescription is for a schedule II opioid drug., 1... Start Date: 05/12/22 Status: Ordered CPAP Equipment See Instructions, # 1 units, Refills 12, Tot. 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 Start Date: 06/30/17 Status: Ordered CPAP Equipment See Instructions, # 1 each, Refills 12, Tot. Refills 12, Maintenance, BiPAP supplies: Mask, tubing,filters, headgear, chin strap, heated water chamber Dx: ELSA G47.33 Length of need 99 months Please fax to [facility] fax # [phone], 07/02/20 14:50:0... Start Date: 07/02/20 Status: Ordered cyanocobalamin 500 mcg oral tablet 1 tablet = 500 mcg, By Mouth, Daily, on empty stomach, # 90 tablet, 3 Refills, Maintenance, 03/26/21 20:06:00 EST, Tablet, [facility], Partial fill upon patient request if the prescription isfor a schedule II opioid drug., 154.8, cm, 03/23/21... Start Date: 03/26/21 Status: Ordered Eucerin Plus topical lotion 1 application, Topically, 2 times a day, PRN for dry skin, # 600 mL, 11 Refills, Maintenance, 05/13/22 9:53:00 EST, Lotion, [facility], Partial fill upon patient request if the prescription is for a schedule II opioid drug., 1 application Topi... Start Date: 05/13/22 Status: Ordered Eucerin Unscented topical lotion See [...] # 12 each, 11 Refills, [facility], 154.8, cm, 09/14/21 9:50:00 EDT, Height, 56, kg, 12/09/20 9:16:00 EDT, Dry Weight Start Date: 11/17/21 Status: Ordered fluticasone 50 mcg/inh nasal spray See Instructions, USE 1 SPRAY IN EACH NOSTRIL DAILY, # 48 mL, 11 Refills, [facility], 90, USE 1 SPRAY IN EACH NOSTR[place] DAILY, 154.8, cm, 09/14/21 9:50:00 EDT, Height, 56, kg, 12/09/20 9:16:00 EDT, Dry Weight Start Date: 11/15/21 Status: Ordered Inderal LA 80 mg oral capsule, extended release 80 mg, 1, capsule, By Mouth, Daily, # 30 capsule, Refills 3, Tot. Refills 3, Maintenance, 06/23/20 10:00:00 EST, Route to Pharmacy Electronically, [facility]/pharmacy #0957, To replace Topamax. Partial fillupon patient request if the prescription is for a... Start Date: 06/23/20 Status: Ordered lisinopril 10 mg oral tablet 1, tablet, By Mouth, Daily, # 90 tablet, Refills 3, Route to Pharmacy Electronically, [facility], 154.8, cm, 09/14/21 9:50:00 EDT, Height, 56, kg, 12/09/20 9:16:00 EDT, Dry Weight Start Date: 12/07/21 Status: Ordered melatonin 3 mg oral tablet 2 tablet = 6 mg, By Mouth, Daily at bedtime, PRN Insomnia, # 60 tablet, 2 Refills, Maintenance, 04/13/22 16:50:00 EST, [facility]/pharmacy #0957, Partial fill upon patient request if the prescription is fora schedule II opioid drug., 154.8, cm, 01/25/22 14:... Start Date: 04/13/22 Status: Ordered nicotine 2 mg oral transmucosal lozenge 1 lozenge = 2 mg, By Mouth, Every 2 hours, # 72 each, 11 Refills, Maintenance, 10/13/20 8:35:00 EDT, [facility]/pharmacy #0957, Partial fill upon patient request if [...] each, Refills 3, Tot. Refills 3, Maintenance, [place] Ensure 1 can TID. Dx: C34.90, R63.4, 03/29/21 15:29:00 EST, Supply Start Date: 03/29/21 Status: Ordered omeprazole 20 mg oral enteric coated capsule 1 capsule = 20 mg, By Mouth, Daily, # 90 capsule, 3 Refills, Maintenance, 07/08/21 15:23:00 EST, ECCapsule, [facility]/pharmacy #0957, Partial fill upon patient request if the prescription is for a schedule II opioid drug., 154.8, cm, 06/29/21 9:00:00 EST,... Start Date: 07/08/21 Status: Ordered Stiolto Respimat 60 ACT 2.5 mcg-2.5 mcg/inh inhalation aerosol 2 puffs, Inhalation, Every 24 hours, TO REPLACE TIOTROPIUM., # 4 mL, 11 Refills, [facility], 154.8, cm, 09/14/21 9:50:00 EDT, Height, 56, kg, 12/09/20 9:16:00 EDT, Dry Weight Start Date: 11/17/21 Status: Ordered Ventolin HFA 108 mcg/inh inhalation aerosol with adapter 2 puffs, Inhalation, 4 times a day, PRN NEEDED FOR WHEEZING, # 18 each, 5 Refills, [facility], 154.8, cm, 09/14/21 9:50:00 EDT, Height, 56, [...] Clubbing Confirmed Active Drug abuse: Suboxone via [facility] Confirmed Active Esophageal reflux (GERD) Confirmed 05/09/12 Active JASON (generalized anxiety disorder) Confirmed Active HPV: Positive in 07/15; 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, negative in 10/16 Confirmed Active Hypertension Confirmed 08/23/10 Active Lung cancer Confirmed Active Lung nodules Confirmed Active Opioid use disorder Confirmed Active Osteoporosis Confirmed Active Pain in finger of right hand Confirmed Active Palpitations Confirmed Active *[id number] paige Escamilla Confirmed Active Pelvic mass Confirmed [...] Team Personnel Name: Jennyfer Stokes NP Position: [facility] PCO Associate Professional Member Role: PCP Address: Address: [address] [place] [address]- Care Team Related Persons Name: JOSELIN SCHMIDT Address: [address] [place] [address] Name: ALYSE HAUSER Address: home [address] [place] [address] Name: NO, ONE AT THIS TIME
--- OUTSIDE RECORDS SUMMARY | 2022-12-26 10:33 | XMS_ITS | Continuity of Care Document ---
Author Name Unknown Organization [facility] Address [address] [place] [address]- Care Team Providers Care Offensive Coordinator Name Role Phone Adalberto Murcia MD Primary Care Physician Encounter [facility] Date(s): 01/25/19 - 05/17/19 [facility] [address] [place] [address] Attending Physician: Oswaldo Parr MD Admitting Physician: Oswaldo Parr MD Referring Physician: Adalberto Murcia MD Allergies, [...] food, # 60 tablet, 11 Refills, Maintenance, 08/28/18 10:01:46 EDT, Tablet, 1 tablet By Mouth 2 times a day,Instr:with food Start Date: 08/28/18 Status: Ordered Cane See Instructions, # 1 units, Maintenance, as directed for back pain, 09/04/18 15:08:30 EDT Start Date: 09/04/18 Status: Ordered CeleXA 20 mg oral tablet 20 mg, 1, tablet, By Mouth, Daily, # 90 tablet, Refills 3, Tot. Refills 3, Maintenance, 03/19/19 10:53:39 EST, Route to Pharmacy Electronically, [id number], [facility]/pharmacy #1026 Start Date: 03/19/19 Status: Ordered cetirizine 10 mg oral tablet 1 tablet = 10 mg, By Mouth, Daily, PRN Other, PRN allergies, # 30 tablet, 11 Refills, Maintenance, 07/05/18 9:34:51 EST, Tablet Start Date: 07/05/18 Status: Ordered chantix 1mg tablet 1 tablet [...] 3 times a day, Please fax to [facility] [phone], # 90 tablet, 2 Refills, Maintenance, 09/17/18 12:46:43 EDT, Tablet Start Date: 09/17/18 Status: Ordered CPAP Equipment See Instructions, # 1 units, Refills 12, Tot. Refills 12, Maintenance, BiPAP supplies: Mask, tubing, filters, headgear, chin strap, heated water chamber Dx: ELSA G47.33 Length of need 99 months Pleasefax to [facility], [phone], 09/04/18 15:13:48 EDT, Co... Start Date: 09/04/18 Status: Ordered CPAP Equipment See Instructions, # 1 units, Refills 12, Tot. 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 Start Date: 06/30/17 Status: Ordered diphenhydrAMINE 25 [...] Daily, # 16 Gm, 11 Refills, Maintenance, 06/18/18 12:15:17 EST, 1 sprays Nasal Daily Start Date: 06/18/18 Status: Ordered Flovent HFA 220 mcg/inh inhalation aerosol See Instructions, # 12 Unknown, Refills 11 Tot. Refills 11, TAKE 2 PUFFS BY MOUTH TWICE A DAY [place] AND THROAT AFTER EACH USE, [facility]/pharmacy #1026 Start Date: 03/15/19 Status: Ordered gabapentin 300 mg oral capsule 600 mg, 2, capsule, By Mouth, Daily at bedtime, # 60 capsule, Refills 11, Tot. Refills 11, Maintenance, 08/28/18 10:07:25 EDT, Route to Pharmacy Electronically, [id number], [facility]/pharmacy #1026 Start Date: 08/28/18 Status: Ordered ibuprofen 600 mg oral tablet 600 mg, 1, tablet, By Mouth, 3 times a day, PRN, with food, # 270 tablet, Refills 11, Tot. Refills 11, Maintenance, as needed for pain, 06/27/17 17:45:19, Route to Pharmacy Electronically, [id number], [facility]/pharmacy #1026 Start Date: 06/27/17 Status: Ordered lisinopril 10 mg oral tablet 10 mg, 1, tablet, By Mouth, Daily, # 30 tablet, Refills 11, Tot. Refills 11, Maintenance, 07/05/18 14:09:24 EST, Route to Pharmacy Electronically, [id number], [facility]/pharmacy #1026 Start Date: 07/05/18 Status: Ordered NuLYTELY with Flavor Packs oral [...] each, Refills 11, Tot. Refills 11, Maintenance, 07/23/18 12:48:24 EDT, Route to Pharmacy Electronically, [id number], [facility]/pharmacy #1026 Start Date: 07/23/18 Stop Date: 07/18/19 Status: Ordered Stiolto Respimat 60 ACT 2.5 [...] day, # 100 tablet, 11 Refills, Maintenance, 08/28/18 10:02:27 EDT Start Date: 08/28/18 Status: Ordered Problem List Condition Effective Dates Status Health Status Inform ant Age at leaving school - ged(Confirmed) Active ASCUS(Confirmed) Active 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 Sleep Report(Confirmed) 05/25/11 Active Hep C: Cleared without treatment(Confirmed) Active Clubbing(Confirmed) [facility]: [facility]) Active Esophageal reflux (GERD)(Confirmed) 05/09/12 [...]
--- OUTSIDE RECORDS SUMMARY | 2022-12-26 10:33 | XMS_ITS | Continuity of Care Document ---
Author Name Unknown Organization [facility] Adult Address [address] [place] [address]- Care Team Providers Care Analytical Research Program Manager Name Role Phone Mavis Allen Primary Care Physician [facility] Date[facility]s): 11/07/22 - 12/07/22 [facility] [address] [place] [address]- Allergies, Adverse Reactions, Alerts Substance Reaction Severity Status Zoloft O/E - Parkinsonian tremor Ac tive Rubber Active Other Environmental Allergy 1 Active 1ELASTIC Immunizations Given and Recorded Vaccine Date Status Refusal Reason [id number] 12y+ bivalent booster vax 05/11/22 Recorded influenza [...] vaccine, inactivated 04/23/08 Give n SARS-CoV-2 mRNA (uhsvelh-ktoz-stajs) vax 12/14/21 Given SARS-CoV-2 mRNA (xnyzwsw-gbyo-vmdkx) vax 09/14/21 Given SARS-CoV-2 (COVID-19) mRNA BNT-162b2 [...] 1 Refills, Maintenance, 11/18/22 15:43:00 EDT, Tablet, [facility]/pharmacy #0957, Partial fill upon patient request if the prescription is for a schedule II opioid drug., 154.94, cm, 11/18/22 15:19:00 EDT, H... Start Date: 11/18/22 Status: Ordered calcium-vitamin D 600 mg-400 intl units oral tablet 1 tablet, By Mouth, 2 times a day with meals, # 180 tablet, 0 Refills, Maintenance, 11/17/22 12:06:00 EDT, [facility], 90, TAKE 1 TABLET BY MOUTH TWICE [...] Refills, Maintenance, 11/18/22 16:36:00 EDT, DIS Tablet, [facility]/pharmacy #0957, Partial fill upon patient [...] EACH USE., # 12 each, 11 Refills, [facility] 32259, 154.8, cm, 09/14/21 9:50:00 EDT, Height, 56, kg, 12/09/20 9:16:00 EDT, Dry Weight Start Date: 11/17/21 Status: Ordered fluticasone 50 mcg/inh nasal spray See Instructions, USE 1 SPRAY IN EACH NOSTRIL DAILY, # 48 mL, 11 Refills, [facility] 75521, 90, USE 1 SPRAY IN EACH NOSTRIL DAILY, 154.8, cm, 09/14/21 9:50:00 EDT, Height, 56, kg, 12/09/20 9:16:00 EDT, Dry Weight Start Date: 11/15/21 Status: Ordered lisinopril 10 mg oral tablet 1, tablet, By Mouth, Daily, # 90 tablet, Refills 3, Route to Pharmacy Electronically, [facility] 1969[facility], 154.8, cm, 09/14/21 9:50:00 EDT, Height, 56, kg, 12/09/20 9:16:00 EDT, Dry Weight Start Date: 12/07/21 Status: Ordered melatonin 3 mg oral tablet 2 tablet = 6 mg, By Mouth, Daily at bedtime, PRN Insomnia, # 60 tablet, 2 Refills, Maintenance, 08/04/22 12:21:00 EDT, [facility]/pharmacy #0957, Partial fill upon patient [...] 0 Refills, Maintenance, 08/01/22 14:52:00 EDT, ECCapsule, [facility]/pharmacy #0957, Partial fill upon patient [...] Confirmed Active Papule of skin Confirmed Active *[id number] Heel Room Supervisor Sandra Rob Confirmed Active Pelvic mass Confirmed [...] Team Personnel Name: Joyce Brice RN Position: [facility] RN Supv Member Role: Primary Care Nurse Name: Ryan Wilson RN Position: S RN Member Role: Primary Care Nurse Name: Mavis Allen Position: [facility] PCO Associate Professional Member Role: PCP Address: Address: [address] [place] [address]. [address] [place] [address]- Name: Allyn Rhoades Position: S RN Member [...] Care Nurse Care Team Related Persons Name: ROXANA JOSELIN Address: home [address] [place] [address] Name: ALYSE HAUSER Address: home [address] [place] [address] Name: NO, ONE AT THIS TIME
--- OUTSIDE RECORDS SUMMARY | 2022-12-26 10:33 | XMS_ITS | Continuity of Care Document ---
Author Name Unknown Organization [facility] ter Address [address] [place] [address]- Care Team Providers Care Players Club Representative Name Role Phone Adalberto Murcia MD Primary Care Physician Encounter [facility] Date(s): 04/27/20 - 08/20/[address] [address] Attending Physician: Adalberto Murcia MD Admitting Physician: Adalberto Murcia MD Referring Physician: Adalberto Murcia MD Allergies, [...] 17:04:00 EDT, Aerosol, Route to Pharmacy Electronically, [id number]... Start Date: 08/03/20 Status: Ordered Ativan 0.5 mg oral tablet 1 tablet = 0.5 mg, By Mouth, Once, teacher physically impaired to procedure. May repeat X 1, # 2 tablet, 0 Refills, Soft Stop, 04/24/20 11:56:00 EST, Tablet, [facility]/pharmacy #6208, Partial fill upon patient request if the [...] 11 Refills, Maintenance, 02/18/20 9:43:00 EDT, Tablet, [facility]/pharmacy #0957, 1 tablet By Mouth 2 [...] 56 tablet, 3 Refills, Acute, [facility], 154.9, cm, 06/11/20 9:48:00 EST, Height, 58, kg, 06/05/20 12:02:00 EST, Dry Weight Start Date: 08/03/20 Status: Ordered clonazePAM 1 mg oral tablet 1 tablet = 1 mg, By Mouth, 3 times a day, Please fax to [facility] on [address] [facility] [address] [facility] [address] [phone], # 90 tablet, 2 Refills, Maintenance, 09/17/18 12:46:43 EDT, Tablet Start Date: 09/17/18 Status: Ordered CPAP Equipment See Instructions, # 1 units, Refills 12, Tot. Refills 12, Maintenance, BIPAP supplies: Mask, tubing, filters, headgear, chin strap, water chamber Dx: Cheko león respiration, severe (786.04) Lengthof need 99 months Please fax to [facility], [phone],... Start Date: 06/30/17 Status: Ordered CPAP Equipment See Instructions, # 1 each, Refills 12, Tot. Refills 12, Maintenance, BiPAP supplies: Mask, tubing,filters, headgear, chin strap, heated water chamber Dx: ELSA G47.33 Length of need 99 months Please fax to [facility] fax # [phone], 07/02/20 14:50:0... Start Date: 07/02/20 Status: Ordered [...] 02/18/20 9:43:00 EDT, Route to Pharmacy Electronically, [facility]/pharmacy #0957, 154.9, cm, 12/30/19 11:15:00 EDT,Height, [...] 04/20/20 13:51:00 EST, Route to Pharmacy Electronically, [id number], [facility]/pharmacy #0957, 154.9, cm, 12/30/19 11:15:00 EDT, [...] Active Clubbing(Confirmed) Active Drug abuse: Suboxone via [facility](Confirmed) Active Esophageal reflux (GERD)(Confirmed) 05/09/12 [...]
--- OUTSIDE RECORDS SUMMARY | 2022-12-26 10:33 | XMS_ITS | Continuity of Care Document ---
Author Name Unknown Organization [facility] Address [address] [place] [address]- Care Team Providers Care Film Maker Name Role Phone Gideon Nice DIRECTOR OF GROUP COUNSELING PROGRAM, Jennyfer Primary Care Physician [facility]counter [facility] Date(s): 05/11/22 - 06/10/[address] [address]- Allergies, Adverse Reactions, Alerts Substance Reaction Severity [...] vaccine, inactivated 04/23/08 Give n SARS-CoV-2 mRNA (vftmngi-vxqf-nybvg) vax 12/14/21 Given SARS-CoV-2 mRNA (kfkeewn-muud-ykhlv) vax 09/14/21 Given SARS-CoV-2 (COVID-19) mRNA BNT-162b2 [...] Refills, Maintenance, 05/26/22 19:48:00 EST, [facility], 154.8, cm, 05/25/22 13:21:00 EST, Height, 56, [...] with meals, # 180 tablet, 1 Refills, [facility] ST[facility] 18334, 90, TAKE 1 TABLET BY MOUTH TWICE [...] tablet, 0 Refills, Maintenance, 05/12/22 8:22:00 EST, [facility]/pharmacy #6015, Partial fill upon patient request if the prescription is for a schedule II opioid drug., 1... Start Date: 05/12/22 Status: Ordered CPAP Equipment See Instructions, # 1 units, Refills 12, Tot. Refills 12, Maintenance, BIPAP supplies: Mask, tubing, filters, headgear, chin strap, water chamber 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) Lengthof need 99 months Please fax to [facility], [phone],... Start Date: 06/30/17 Status: Ordered CPAP Equipment See Instructions, # 1 each, Refills 12, Tot. Refills 12, Maintenance, BiPAP supplies: Mask, tubing,filters, headgear, chin strap, heated water chamber Dx: ELSA G47.33 Length of need 99 months Please fax to [facility] fax # [phone], 07/02/20 14:50:0... Start Date: 07/02/20 Status: Ordered [...] # 12 each, 11 Refills, [facility], 154.8, cm, 09/14/21 9:50:00 EDT, Height, 56, kg, 12/09/20 9:16:00 EDT, Dry Weight Start Date: 11/17/21 Status: Ordered fluticasone 50 mcg/inh nasal spray See Instructions, USE 1 SPRAY IN EACH NOSTRIL DAILY, # 48 mL, 11 Refills, [facility], 90, USE 1 SPRAY IN EACH NOSTRIL [...] 3, Route to Pharmacy Electronically, [facility], 154.8, cm, 09/14/21 9:50:00 EDT, Height, 56, [...] each, Refills 3, Tot. Refills 3, Maintenance, [place] Ensure 1 can TID. Dx: C34.90, R63.4, [...] REPLACE TIOTROPIUM., # 4 mL, 11 Refills, [facility] 42348, 154.8, cm, 09/14/21 9:50:00 EDT, Height, 56, kg, 12/09/20 9:16:00 EDT, Dry Weight Start Date: 11/17/21 Status: Ordered Ventolin HFA 108 mcg/inh inhalation aerosol with adapter 2 puffs, Inhalation, 4 times a day, PRN NEEDED FOR WHEEZING, # 18 each, 5 Refills, [facility] 00789, 154.8, cm, 09/14/21 9:50:00 EDT, Height, 56, [...] Clubbing Confirmed Active Drug abuse: Suboxone via [facility] Confirmed Active Esophageal reflux (GERD) Confirmed 05/09/12 Active JASON (generalized anxiety disorder) Confirmed Active HPV: Positive in 07/15; 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, negative in 10/16 Confirmed Active Hypertension Confirmed 08/23/10 Active Lung cancer Confirmed Active Lung nodules Confirmed Active Opioid use disorder Confirmed Active Osteoporosis Confirmed Active Pain in finger of right hand Confirmed Active Palpitations Confirmed Active *[id number] paige Escamilla Confirmed Active Pelvic mass Confirmed [...] Team Personnel Name: Jennyfer Stokes NP Position: [facility] PCO Associate Professional Member Role: PCP Address: Address: [address] [place] [address]- Care Team Related Persons Name: JOSELIN SCHMIDT Address: home [address] [place] [address] Name: ALYSE HAUSER Address: home [address] [place] [address] Name: TONY, ONE AT THIS TIME
--- OUTSIDE RECORDS SUMMARY | 2022-12-26 10:33 | XMS_ITS | Continuity of Care Document ---
Author Name Unknown Organization [facility] Address [address] [place] [address]- Care Team Providers Care Millinery Designer Name Role Phone Divina MARINELLI, Adalberto Reeder Primary Care Physician [facility]counter [facility] Date(s): 11/26/21 - 12/26/[address] [address]- Allergies, Adverse Reactions, Alerts Substance Reaction Severity Status Zoloft O/E - Parkinsonian tremor Ac tive Rubber Active Other Environmental Allergy 1 Active 1ELASTIC Immunizations Given and Recorded Vaccine Date Status Refusal Reason SARS-CoV-2 mRNA (diljbta-fgjy-ptgim) vax 12/14/21 Given SARS-CoV-2 mRNA (rddqcrm-vtgm-cdhpy) vax 09/14/21 Given SARS-CoV-2 (COVID-19) mRNA BNT-162b2 [...] 3 Refills, Maintenance, 09/14/21 10:11:00 EDT,Tablet, [facility]/pharmacy #0973, Partial fill upon patient request if the [...] meals, # 180 tablet, 1 Refills, [facility] STORE 45756, 90, TAKE 1 TABLET BY MOUTH TWICE [...] 04/15/22 8:28:00 EST, 12/14/21 8:27:00 EDT, [facility]/pharmacy #0957, 154.8, cm, 09/14/21 9:50:00 EDT, Height, 56, kg, 12/09/20 9:16:00 EDT, Dry Weight Start Date: 12/14/21 Stop Date: 04/15/22 Status: Ordered clonazePAM 0.25 mg oral tablet, disintegrating See Instructions, 1 tablet By Mouth 2 times a day, may take one more at bedtime as needed. [place] PatReviewed. Please fill on/after 12/06/21, # 62 tablet, 1 Refills, Maintenance, 11/26/21 15:32:00 EDT, [facility]/pharmacy #0957, Partial fill upon patient reque... Start Date: 11/26/21 Status: Ordered CPAP Equipment See Instructions, # 1 units, Refills 12, Tot. Refills 12, Maintenance, BIPAP supplies: Mask, tubing, filters, headgear, chin strap, water chamber 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) Lengthof need 99 months Please fax to [facility], [phone],... Start Date: 06/30/17 Status: Ordered CPAP Equipment See Instructions, # 1 each, Refills 12, Tot. Refills 12, Maintenance, BiPAP supplies: Mask, tubing,filters, headgear, chin strap, heated water chamber Dx: ELSA G47.33 Length of need 99 months Please fax to [facility] fax # [phone], 07/02/20 14:50:0... Start Date: 07/02/20 Status: Ordered cyanocobalamin 500 mcg oral tablet 1 tablet = 500 mcg, By Mouth, Daily, on empty stomach, # 90 tablet, 3 Refills, Maintenance, 03/26/21 20:06:00 EST, Tablet, [facility]/pharmacy #0957, Partial fill upon patient [...] EACH USE., # 12 each, 11 Refills, [facility] 27780, 154.8, cm, 09/14/21 9:50:00 EDT, Height, 56, kg, 12/09/20 9:16:00 EDT, Dry Weight Start Date: 11/17/21 Status: Ordered fluticasone 50 mcg/inh nasal spray See Instructions, USE 1 SPRAY IN EACH NOSTRIL DAILY, # 48 mL, 11 Refills, [facility] 51797, 90, USE 1 SPRAY IN EACH NOSTRIL DAILY, 154.8, cm, 09/14/21 9:50:00 EDT, Height, 56, kg, 12/09/20 9:16:00 EDT, Dry Weight Start Date: 11/15/21 Status: Ordered Inderal LA 80 mg oral capsule, extended release 80 mg, 1, capsule, By Mouth, Daily, # 30 capsule, Refills 3, Tot. Refills 3, Maintenance, 06/23/20 10:00:00 EST, Route to Pharmacy Electronically, [facility]/pharmacy #0957, To replace Topamax. Partial fillupon patient request if the prescription is for a... Start Date: 06/23/20 Status: Ordered lisinopril 10 mg oral tablet 1, tablet, By Mouth, Daily, # 90 tablet, Refills 3, Route to Pharmacy Electronically, [facility] STORE 87106, 154.8, cm, 09/14/21 9:50:00 EDT, Height, 56, kg, 12/09/20 9:16:00 EDT, Dry Weight Start Date: 12/07/21 Status: Ordered melatonin 3 mg oral tablet 1 tablet = 3 mg, By Mouth, Daily at bedtime, PRN Insomnia, # 60 tablet, 11 Refills, Maintenance, 03/29/21 21:06:00 EST, [facility]/pharmacy #0957, Partial fill upon patient request if the prescription is for a schedule II opioid drug., 154.8, cm, 03/23/21 11... Start Date: 03/29/21 Status: Ordered nicotine 2 mg oral transmucosal lozenge 1 lozenge = 2 mg, By Mouth, Every 2 hours, # 72 each, 11 Refills, Maintenance, 10/13/20 8:35:00 EDT, [facility]/pharmacy #0957, Partial fill upon patient [...] each, Refills 3, Tot. Refills 3, Maintenance, [place] Ensure 1 can TID. Dx: C34.90, R63.4, 03/29/21 15:29:00 EST, Supply Start Date: 03/29/21 Status: Ordered omeprazole 20 mg oral enteric coated capsule 1 capsule = 20 mg, By Mouth, Daily, # 90 capsule, 3 Refills, Maintenance, 07/08/21 15:23:00 EST, ECCapsule, [facility]/pharmacy #0957, Partial fill upon patient request if the prescription is for a schedule II opioid drug., 154.8, cm, 06/29/21 9:00:00 EST,... Start Date: 07/08/21 Status: Ordered Stiolto Respimat 60 ACT 2.5 mcg-2.5 mcg/inh inhalation aerosol 2 puffs, Inhalation, Every 24 hours, TO REPLACE TIOTROPIUM., # 4 mL, 11 Refills, [facility] 65974, 154.8, cm, 09/14/21 9:50:00 EDT, Height, 56, kg, 12/09/20 9:16:00 EDT, Dry Weight Start Date: 11/17/21 Status: Ordered Ventolin HFA 108 mcg/inh inhalation aerosol with adapter 2 puffs, Inhalation, 4 times a day, PRN NEEDED FOR WHEEZING, # 18 each, 5 Refills, [facility] 59346, 154.8, cm, 09/14/21 9:50:00 EDT, Height, 56, kg, 12/09/20 9:16:00 EDT, Dry Weight Start Date: 11/28/21 Status: Ordered Problem List Condition Effective Dates Status Health Status Inform ant Age at leaving school - ged(Confirmed) Active ASCUS(Confirmed) Active 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 Sleep Report(Confirmed) 05/25/11 Active Hep C: Cleared without treatment(Confirmed) Active Clubbing(Confirmed) Active Drug abuse: Suboxone via [facility](Confirmed) Active Esophageal reflux (GERD)(Confirmed) 05/09/12 Active [...]
--- OUTSIDE RECORDS SUMMARY | 2022-12-26 10:33 | XMS_ITS | Continuity of Care Document ---
Author Name Unknown Organization [facility] Address [address] [place] [address]- Care Team Providers Care Lift Manager Name Role Phone Divina MARINELLI, Adalberto Reeder Primary Care Physician [facility] Date[facility]s): 08/16/21 - 09/15/[address] [address]- Allergies, Adverse Reactions, Alerts Substance Reaction Severity Status Zoloft O/E - Parkinsonian tremor Ac tive Rubber Active Other Environmental Allergy 1 Active 1ELASTIC Immunizations Given and Recorded Vaccine Date Status Refusal Reason SARS-CoV-2 mRNA (lyqeelp-tllw-hupvv) vax 09/14/21 Given SARS-CoV-2 (COVID-19) mRNA BNT-162b2 [...] 17:04:00 EDT, Aerosol, Route to Pharmacy Electronically, [id number]... Start Date: 08/03/20 Status: Ordered alendronate 70 mg oral tablet 1 tablet = 70 mg, By Mouth, Every week, # 12 tablet, 3 Refills, Maintenance, 09/14/21 10:11:00 EDT,Tablet, [facility]/pharmacy #1590, Partial fill upon patient request if the [...] 11 Refills, Maintenance, 11/05/20 17:11:00 EDT, Tablet, [facility]/pharmacy #0957, 1 tablet By Mouth 2 [...] 56 tablet, 3 Refills, Acute, [facility], 154.9, cm, 06/11/20 9:48:00 EST, Height, 58, kg, 06/05/20 12:02:00 EST, Dry Weight Start Date: 08/03/20 Status: Ordered clonazePAM 0.5 mg oral tablet See Instructions, 1 tablet By Mouth 2 times a day. [place] Pat Reviewed. Please fill on/after 09/06/21, # 50 tablet, 0 Refills, Maintenance, 09/06/21 10:17:00 EDT, [facility], Partial fill upon patient request if the prescription is for a schedule... Start Date: 09/06/21 Status: Ordered CPAP Equipment See Instructions, # 1 units, Refills 12, Tot. Refills 12, Maintenance, BIPAP supplies: Mask, tubing, filters, headgear, chin strap, water chamber 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) Lengthof need 99 months Please fax to [facility], [phone],... Start Date: 06/30/17 Status: Ordered CPAP Equipment See Instructions, # 1 each, Refills 12, Tot. Refills 12, Maintenance, BiPAP supplies: Mask, tubing,filters, headgear, chin strap, heated water chamber Dx: ELSA G47.33 Length of need 99 months Please fax to [facility] fax # [phone], 07/02/20 14:50:0... Start Date: 07/02/20 Status: Ordered [...] 11 Refills, Soft Stop, 11/05/20 17:11:00 EDT, [facility]/pharmacy #0957, 154.9, cm, 10/13/20 7:56:00 EDT, Height, 58, kg, 06/05/20 12:02:00 EST, Dry Weight Start Date: 11/05/20 Status: Ordered Inderal LA 80 mg oral capsule, extended release 80 mg, 1, capsule, By Mouth, Daily, # 30 capsule, Refills 3, Tot. Refills 3, Maintenance, 06/23/20 10:00:00 EST, Route to Pharmacy Electronically, [facility]/pharmacy #0957, To replace Topamax. Partial fillupon patient request if the prescription is for a... Start Date: 06/23/20 Status: Ordered lisinopril 10 mg oral tablet 10 mg, 1, tablet, By Mouth, Daily, # 90 tablet, Refills 3, Tot. Refills 3, Maintenance, 09/28/20 13:15:00 EDT, [facility], [facility], 154.9, cm, 09/22/20 10:26:00 EDT, Height, [...] each, Refills 3, Tot. Refills 3, Maintenance, [place] Ensure 1 can TID. Dx: C34.90, R63.4, 03/29/21 15:29:00 EST, Supply Start Date: 03/29/21 Status: Ordered omeprazole 20 mg oral enteric coated capsule 1 capsule = 20 mg, By Mouth, Daily, # 90 capsule, 3 Refills, Maintenance, 07/08/21 15:23:00 EST, ECCapsule, [facility]/pharmacy #0957, Partial fill upon patient request [...] Clubbing(Confirmed) [facility]: [facility] Active Esophageal reflux (GERD)(Confirmed) 05/09/12 Active JAOSN (generalized anxiety disorder)(Confirmed) Active HPV: Positive in [...]
--- OUTSIDE RECORDS SUMMARY | 2022-12-26 10:33 | XMS_ITS | Continuity of Care Document ---
Author Name Unknown Organization [facility] Address [address] [place] [address]- Care Team Providers Care Director E Learning Name Role Phone Divina MARINELLI, Adalberto Reeder Primary Care Physician Encounter [facility] Date(s): 06/16/21 - 07/16/21 [facility] [address] [place], [place] [address] Attending Physician: Admrobyn, Angelina Admitting Physician: AdmtrAngelina Referring Physician: Admtr, Ar8 Allergies, Adverse Reactions, Alerts Substance Reaction Severity [...] 17:04:00 EDT, Aerosol, Route to Pharmacy Electronically, [id number]... Start Date: 08/03/20 Status: Ordered BiPAP Machine [...] 56 tablet, 3 Refills, Acute, [facility], 154.9, cm, 06/11/20 9:48:00 EST, Height, 58, [...] need 99 months Please fax to [facility], [phone],... Start Date: 06/30/17 Status: Ordered CPAP Equipment See Instructions, # 1 each, Refills 12, Tot. Refills 12, Maintenance, BiPAP supplies: Mask, tubing,filters, headgear, chin strap, heated water chamber Dx: ELSA G47.33 Length of need 99 months Please fax to [facility] fax # [phone], 07/02/20 14:50:0... Start Date: 07/02/20 Status: Ordered [...] 09/28/20 13:15:00 EDT, Route to Pharmacy Electronically, [facility]/pharmacy #0957, 154.9, cm, 09/22/20 10:26:00 EDT, Height, 58, kg, 06/05/20 12:02:00 EST, Dry Weight Start Date: 09/28/20 Stop Date: 09/23/21 Status: Ordered melatonin 3 mg oral tablet 1 tablet = 3 mg, By Mouth, Daily at bedtime, PRN Insomnia, # 60 tablet, 11 Refills, Maintenance, 03/29/21 21:06:00 EST, [facility]/pharmacy #0957, Partial fill upon patient [...] each, Refills 3, Tot. Refills 3, Maintenance, [place] Ensure 1 can TID. Dx: C34.90, R63.4, 03/29/21 15:29:00 EST, Supply Start Date: 03/29/21 Status: Ordered omeprazole 20 mg oral enteric coated capsule 1 capsule = 20 mg, By Mouth, Daily, # 90 capsule, 3 Refills, Maintenance, 07/08/21 15:23:00 EST, ECCapsule, [facility]/pharmacy #0957, Partial fill upon patient [...] Active Clubbing(Confirmed) Active Drug abuse: Suboxone via [facility](Confirmed) Active Esophageal reflux (GERD)(Confirmed) [...]
--- OUTSIDE RECORDS SUMMARY | 2022-12-26 10:33 | XMS_ITS | Continuity of Care Document ---
Author Name Unknown Organization [facility] [employer] [facility] On[facility] y Address [address] [place] [address]- Care Team Providers Care Frame Fixer Name Role Phone Mavis Allen Primary Care Physician Encounter [facility] Date(s): 06/01/22 - 07/01/22 [facility] [employer] [address], [place] [address] Attending Physician: Angelina Mendoza Admitting Physician: AdmtrAngelina Referring Physician: Admtr, ArKar Allergies, Adverse Reactions, Alerts Substance Reaction Severity Status Zoloft O/E - Parkinsonian tremor Ac tive Rubber Active Other Environmental Allergy 1 Active 1ELASTIC Immunizations Given and Recorded Vaccine Date Status Refusal Reason [id number] 12y+ bivalent booster vax 05/11/22 Recorded influenza [...] vaccine, inactivated 04/23/08 Give n SARS-CoV-2 mRNA (cyqvynl-ttgn-omtph) vax 12/14/21 Given SARS-CoV-2 mRNA (ixoqret-gqvg-nbddc) vax 09/14/21 Given SARS-CoV-2 (COVID-19) mRNA BNT-162b2 [...] Refills, Maintenance, 05/26/22 19:48:00 EST, [facility], 154.8, cm, 05/25/22 13:21:00 EST, Height, 56, [...] with meals, # 180 tablet, 1 Refills, [facility] STORE 85340, 90, TAKE 1 TABLET BY MOUTH TWICE [...] 40 tablet, 0 Refills, Maintenance, 05/12/22 8:22:00 [facility], [facility]/pharmacy #0957, Partial fill upon patient request if the prescription is for a schedule II opioid drug., 1... Start Date: 05/12/22 Status: Ordered CPAP Equipment See Instructions, # 1 units, Refills 12, Tot. Refills 12, Maintenance, BIPAP supplies: Mask, tubing, filters, headgear, chin strap, water chamber 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) Lengthof need 99 months Please fax to [facility], [phone],... Start Date: 06/30/17 Status: Ordered CPAP Equipment See Instructions, # 1 each, Refills 12, Tot. Refills 12, Maintenance, BiPAP supplies: Mask, tubing,filters, headgear, chin strap, heated water chamber Dx: ELSA G47.33 Length of need 99 months Please fax to [facility] fax # [phone], 07/02/20 14:50:0... Start Date: 07/02/20 Status: Ordered cyanocobalamin 500 mcg oral tablet 1 tablet = 500 mcg, By Mouth, Daily, on empty stomach, # 90 tablet, 3 Refills, Maintenance, 03/26/21 20:06:00 EST, Tablet, [facility]/pharmacy #0957, Partial fill upon patient request if the prescription isfor a schedule II opioid drug., 154.8, cm, 03/23/21... Start Date: 03/26/21 Status: Ordered Flovent HFA 220 mcg/inh inhalation aerosol 2 puffs, Inhalation, 2 times a day, AND THROAT AFTER EACH USE., # 12 each, 11 Refills, [facility] 53957, 154.8, cm, 09/14/21 9:50:00 EDT, Height, 56, kg, 12/09/20 9:16:00 EDT, Dry Weight Start Date: 11/17/21 Status: Ordered fluticasone 50 mcg/inh nasal spray See Instructions, USE 1 SPRAY IN EACH NOSTRIL DAILY, # 48 mL, 11 Refills, [facility] 02101, 90, USE 1 SPRAY IN EACH NOSTRIL DAILY, 154.8, cm, 09/14/21 9:50:00 EDT, Height, 56, kg, 12/09/20 9:16:00 EDT, Dry Weight Start Date: 11/15/21 Status: Ordered lisinopril 10 mg oral tablet 1, tablet, By Mouth, Daily, # 90 tablet, Refills 3, Route to Pharmacy Electronically, [facility] 47948, 154.8, cm, 09/14/21 9:50:00 EDT, Height, 56, [...] each, 11 Refills, Maintenance, 10/13/20 8:35:00 EDT, [facility]/pharmacy #0957, Partial fill upon patient request if the prescription is for a schedule II opioid drug., 1 lozenge By Mouth Every 2 hours, 154.9,... Start Date: 10/13/20 Status: Ordered Nutritional Supplements See Instructions, # 90 each, Refills 3, Tot. Refills 3, Maintenance, [employer] Ens[facility] 1 can TID. Dx: C34.90, R63.4, 03/29/21 15:29:00 EST, Supply Start Date: 03/29/21 Status: Ordered omeprazole 20 mg oral enteric coated capsule 1 capsule = 20 mg, By Mouth, Daily, # 90 capsule, 3 Refills, Maintenance, 07/08/21 15:23:00 EST, ECCapsule, [facility]/pharmacy #0957, Partial fill upon patient request if [...] FOR WHEEZING, # 18 each, 5 Refills, [facility] 89197, 154.8, cm, 09/14/21 9:50:00 EDT, Height, 56, [...] right hand Confirmed Active Palpitations Confirmed Active *[id number] paige Escamilla Confirmed Active Pelvic mass Confirmed [...] Care Team Personnel Name: Mavis Allen Position: [facility] PCO Associate Professional Member Role: PCP Address: Address: [address] [place] [address]. [address] [place] [address]- Care Team Related Persons Name: JOSELIN SCHMIDT Address: home [address] [place] [address] Name: ANALISAALYSE Address: home [address] [place] [id number] Name: NO, ONE AT THIS TIME
--- OUTSIDE RECORDS SUMMARY | 2022-12-26 10:33 | XMS_ITS | Continuity of Care Document ---
Author Name Unknown Organization [facility] Address [address] [place] [address]- Care Team Providers Care Supervisor Channel Process Name Role Phone Divina MARINELLI, Adalberto Reeder Primary Care Physician Encounter [facility] [place] [facility] Date(s): 07/04/19 - 07/14/[address] [address]- [facility] Attending Physician: Angelina Mendoza Admitting Physician: AdmtrAngelina Referring Physician: Admtr, Ar8 [...] 11 Refills, Maintenance, 05/28/19 12:01:00 EST, Tablet, [facility]/pharmacy #0957, 1 tablet By Mouth [...] 03/19/19 10:53:39 EST, Route to Pharmacy Electronically, [id number], [facility]/pharmacy #1026 Start Date: 03/19/19 Status: Ordered cetirizine 10 mg oral tablet 1 tablet = 10 mg, By Mouth, Daily, PRN Other, PRN allergies, # 30 tablet, 11 Refills, Maintenance, 05/28/19 12:01:00 EST, Tablet, [facility]/pharmacy #0957, 154.9, cm, 05/28/19 11:40:00 EST, [...] 3 times a day, Please fax to [facility] on [facility] [address] [phone], # 90 tablet, 2 Refills, Maintenance, 09/17/18 12:46:43 EDT, Tablet Start Date: 09/17/18 Status: Ordered CPAP Equipment See Instructions, # 1 units, Refills 12, Tot. Refills 12, Maintenance, BiPAP supplies: Mask, tubing, filters, headgear, chin strap, heated water chamber Dx: ELSA G47.33 Length of need 99 months Pleasefax to [facility], [phone], 09/04/18 15:13:48 EDT, Co... Start Date: 09/04/18 Status: Ordered CPAP Equipment See Instructions, # 1 units, Refills 12, Tot. Refills 12, Maintenance, BIPAP supplies: Mask, tubing, filters, headgear, chin strap, water chamber 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) Lengthof need 99 months Please fax to [facility], [phone],... Start Date: 06/30/17 Status: Ordered diphenhydrAMINE 25 [...] Gm, 11 Refills, Maintenance, 05/28/19 12:01:00 EST, [facility]/pharmacy #0957, 1 sprays Nasal Daily, 154.9, cm, 05/28/19 11:40:00 EST, Height, 55.3, kg, 04/19/19 8:36:00 EST, Dry Weight Start Date: 05/28/19 Status: Ordered Flovent HFA 220 mcg/inh inhalation aerosol See Instructions, # 12 Unknown, Refills 11 Tot. Refills 11, TAKE 2 PUFFS BY MOUTH TWICE A DAY [place] AND THROAT AFTER EACH USE, [facility]/pharmacy #1026 Start Date: 03/15/19 Status: Ordered ibuprofen 600 mg oral tablet 600 mg, 1, tablet, By Mouth, 3 times a day, PRN, with food, # 270 tablet, Refills 11, Tot. Refills 11, Maintenance, as needed for pain, 06/27/17 17:45:19, Route to Pharmacy Electronically, [id number], [facility]/pharmacy #1026 Start Date: 06/27/17 Status: Ordered lisinopril 10 mg oral tablet 10 mg, 1, tablet, By Mouth, Daily, # 30 tablet, Refills 11, Tot. Refills 11, Maintenance, 05/28/19 12:01:00 EST, Route to Pharmacy Electronically, [facility]/pharmacy #0957, 154.9, cm, 05/28/19 11:40:00 EST, [...] 05/28/19 12:01:00 EST, Route to Pharmacy Electronically, [id number], [facility]/pharmacy #0957, 154.9, cm, 05/28/19 11:40:00 EST, [...] Clubbing(Confirmed) [facility]: [facility] Active Esophageal reflux (GERD)(Confirmed) 05/09/12 [...]
--- OUTSIDE RECORDS SUMMARY | 2022-12-26 10:33 | XMS_ITS | Continuity of Care Document ---
Author Name Unknown Organization [facility] Address [address] [place] [address]- Care Team Providers Care Pediatric Social Worker Name Role Phone Mavis Allen Primary Care Physician Encounter [facility] Date(s): 06/15/22 - 07/15/[address] [address]- Allergies, Adverse Reactions, Alerts Substance Reaction Severity Status Zoloft O/E - Parkinsonian tremor Ac tive Rubber Active Other Environmental Allergy 1 Active 1ELASTIC Immunizations Given and Recorded Vaccine Date Status Refusal Reason [id number] 12y+ bivalent booster vax 05/11/22 Recorded influenza [...] vaccine, inactivated 04/23/08 Give n SARS-CoV-2 mRNA (uwlthjn-rtnv-obpsk) vax 12/14/21 Given SARS-CoV-2 mRNA (nblqycp-cnkg-rpdyt) vax 09/14/21 Given SARS-CoV-2 (COVID-19) mRNA BNT-162b2 [...] Refills, Maintenance, 05/26/22 19:48:00 EST, [facility], 154.8, cm, 05/25/22 13:21:00 EST, Height, 56, [...] with meals, # 180 tablet, 1 Refills, [facility] STORE 43852, 90, TAKE 1 TABLET BY MOUTH TWICE [...] tablet, 0 Refills, Maintenance, 07/11/22 15:10:00 EST, [facility]/pharmacy #0957, Partial fill upon patient [...] 99 months Please fax to [facility], [phone],... Start Date: 06/30/17 Status: Ordered CPAP Equipment See Instructions, # 1 each, Refills 12, Tot. Refills 12, Maintenance, BiPAP supplies: Mask, tubing,filters, headgear, chin strap, heated water chamber Dx: ELSA G47.33 Length of need 99 months Please fax to [facility] fax # [phone], 07/02/20 14:50:0... Start Date: 07/02/20 Status: Ordered cyanocobalamin 500 mcg oral tablet 1 tablet = 500 mcg, By Mouth, Daily, on empty stomach, # 90 tablet, 3 Refills, Maintenance, 03/26/21 20:06:00 EST, Tablet, [facility]/pharmacy #0957, Partial fill upon patient request if the prescription isfor a schedule II opioid drug., 154.8, cm, 03/23/21... Start Date: 03/26/21 Status: Ordered Flovent HFA 220 mcg/inh inhalation aerosol 2 puffs, Inhalation, 2 times a day, AND THROAT AFTER EACH USE., # 12 each, 11 Refills, [facility], 154.8, cm, 09/14/21 9:50:00 EDT, Height, 56, kg, 12/09/20 9:16:00 EDT, Dry Weight Start Date: 11/17/21 Status: Ordered fluticasone 50 mcg/inh nasal spray See Instructions, USE 1 SPRAY IN EACH NOSTRIL DAILY, # 48 mL, 11 Refills, [facility], 90, USE 1 SPRAY IN EACH NOSTRIL DAILY, 154.8, cm, 09/14/21 9:50:00 EDT, Height, 56, kg, 12/09/20 9:16:00 EDT, Dry Weight Start Date: 11/15/21 Status: Ordered lisinopril 10 mg oral tablet 1, tablet, By Mouth, Daily, # 90 tablet, Refills 3, Route to Pharmacy Electronically, [facility], 154.8, cm, 09/14/21 9:50:00 EDT, Height, 56, [...] Maintenance, 10/13/20 8:35:00 EDT, [facility]/pharmacy #0957, Partial fill upon patient request if the prescription is for a schedule II opioid drug., 1 lozenge By Mouth Every 2 hours, 154.9,... Start Date: 10/13/20 Status: Ordered Nutritional Supplements See Instructions, # 90 each, Refills 3, Tot. Refills 3, Maintenance, [place] Ensure 1 can TID. Dx: C34.90, R63.4, 03/29/21 15:29:00 EST, Supply Start Date: 03/29/21 Status: Ordered omeprazole 20 mg oral enteric coated capsule 1 capsule = 20 mg, By Mouth, Daily, # 90 capsule, 3 Refills, Maintenance, 07/08/21 15:23:00 EST, ECCapsule, [facility]/pharmacy #0957, Partial fill upon patient [...] FOR WHEEZING, # 18 each, 5 Refills, [facility] STORE 03348, 154.8, cm, 09/14/21 9:50:00 EDT, Height, 56, [...] Clubbing Confirmed Active Drug abuse: Suboxone via [facility] Confirmed Active Esophageal reflux (GERD) Confirmed 05/09/12 Active JASON (generalized anxiety disorder) Confirmed Active HPV: Positive in 07/15; 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, negative in 10/16 Confirmed Active Hypertension Confirmed 08/23/10 Active Lung cancer Confirmed Active Lung nodules Confirmed Active Opioid use disorder Confirmed Active Osteoporosis Confirmed Active Pain in finger of right hand Confirmed Active Palpitations Confirmed Active *[id number] paige Escamilla Confirmed Active Pelvic mass Confirmed [...] Care Team Personnel Name: Mavis Allen Position: [facility] PCO Associate Professional Member Role: PCP Address: Address: [address] [place] [address]. [address] [place] [address]- Care Team Related Persons Name: JOSELIN SCHMIDT Address: home [address] [place] [address] Name: ALYSE HAUSER Address: home [address] [address] Name: NO, ONE AT THIS TIME
--- OUTSIDE RECORDS SUMMARY | 2022-12-26 10:33 | XMS_ITS | Continuity of Care Document ---
Author Name Unknown Organization [facility] Address [address] [place] [address]- Care Team Providers Care Fire Prevention Captain Name Role Phone Gideon Nice BEEF PLUCK TRIMMER, Jennyfer Primary Care Physician Encounter [facility] Date(s): 02/22/22 - 03/24/[address] [address]- Allergies, Adverse Reactions, Alerts Substance Reaction Severity Status Zoloft O/E - Parkinsonian tremor Ac tive Rubber Active Other Environmental Allergy 1 Active 1ELASTIC Immunizations Given and Recorded Vaccine Date Status Refusal Reason SARS-CoV-2 mRNA (hvykclm-ozrc-sdydw) vax 12/14/21 Given SARS-CoV-2 mRNA (esbsyro-gmok-tzhnn) vax 09/14/21 Given SARS-CoV-2 (COVID-19) mRNA BNT-162b2 [...] tablet, 3 Refills, Maintenance, 09/14/21 10:11:00 EDT,Tablet, [facility]/pharmacy #0994, Partial fill upon patient request if the [...] # 180 tablet, 1 Refills, [facility], 90, TAKE 1 TABLET BY MOUTH TWICE [...] PhysicianStop 04/15/22 8:28:00 EST, 12/14/21 8:27:00 EDT, [facility]/pharmacy #0957, 154.8, cm, 09/14/21 9:50:00 EDT, Height, 56, kg, 12/09/20 9:16:00 EDT, Dry Weight Start Date: 12/14/21 Stop Date: 04/15/22 Status: Ordered clonazePAM 0.25 mg oral tablet, disintegrating See Instructions, 1 tablet By Mouth 2 times a day as needed. Mass Pat Reviewed. Please fill on/after 01/24/22, # 40 tablet, 2 Refills, Maintenance, 01/24/22 16:19:00 EDT, [facility]/pharmacy #0957, Partial fill upon patient request if the prescription is for... Start Date: 01/24/22 Status: Ordered CPAP Equipment See Instructions, # 1 units, Refills 12, Tot. Refills 12, Maintenance, BIPAP supplies: Mask, tubing, filters, headgear, chin strap, water chamber 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) Lengthof need 99 months Please fax to [facility], [phone],... Start Date: 06/30/17 Status: Ordered CPAP Equipment See Instructions, # 1 each, Refills 12, Tot. Refills 12, Maintenance, BiPAP supplies: Mask, tubing,filters, headgear, chin strap, heated water chamber Dx: ELSA G47.33 Length of need 99 months Please fax to [facility] fax # [phone], 07/02/20 14:50:0... Start Date: 07/02/20 Status: Ordered cyanocobalamin 500 mcg oral tablet 1 tablet = 500 mcg, By Mouth, Daily, on empty stomach, # 90 tablet, 3 Refills, Maintenance, 03/26/21 20:06:00 EST, Tablet, [facility]/pharmacy #0957, Partial fill upon patient request if the prescription isfor a schedule II opioid drug., 154.8, cm, 03/23/21... Start Date: 03/26/21 Status: Ordered Eucerin Unscented topical lotion See Instructions, apply to skin daily, dispense 1 jar, # 1 each, 11 Refills, Maintenance, 09/25/19 16:37:00 EDT, [facility]/pharmacy #0957, apply to skin daily, dispense [...] EACH USE., # 12 each, 11 Refills, [facility] ST[facility] 20777, 154.8, cm, 09/14/21 9:50:00 EDT, Height, 56, kg, 12/09/20 9:16:00 EDT, Dry Weight Start Date: 11/17/21 Status: Ordered fluticasone 50 mcg/inh nasal spray See Instructions, USE 1 SPRAY IN EACH NOSTRIL DAILY, # 48 mL, 11 Refills, [facility] 95141, 90, USE 1 SPRAY IN EACH NOSTRIL DAILY, 154.8, cm, 09/14/21 9:50:00 EDT, Height, 56, kg, 12/09/20 9:16:00 EDT, Dry Weight Start Date: 11/15/21 Status: Ordered Inderal LA 80 mg oral capsule, extended release 80 mg, 1, capsule, By Mouth, Daily, # 30 capsule, Refills 3, Tot. Refills 3, Maintenance, 06/23/20 10:00:00 EST, Route to Pharmacy Electronically, [facility]/pharmacy #0957, To replace Topamax. Partial fillupon patient request if the prescription is for a... Start Date: 06/23/20 Status: Ordered lisinopril 10 mg oral tablet 1, tablet, By Mouth, Daily, # 90 tablet, Refills 3, Route to Pharmacy Electronically, [facility] STORE 67962, 154.8, cm, 09/14/21 9:50:00 EDT, Height, 56, kg, 12/09/20 9:16:00 EDT, Dry Weight Start Date: 12/07/21 Status: Ordered melatonin 3 mg oral tablet 1 tablet = 3 mg, By Mouth, Daily at bedtime, PRN Insomnia, # 60 tablet, 11 Refills, Maintenance, 01/24/22 16:19:00 EDT, [facility]/pharmacy #0957, Partial fill upon patient request if the prescription is for a schedule II opioid drug., 154.8, cm, 09/14/21 9:... Start Date: 01/24/22 Status: Ordered nicotine 2 mg oral transmucosal lozenge 1 lozenge = 2 mg, By Mouth, Every 2 hours, # 72 each, 11 Refills, Maintenance, 10/13/20 8:35:00 EDT, [facility]/pharmacy #0957, Partial fill upon [...] each, Refills 3, Tot. Refills 3, Maintenance, [employer] Ensure 1 can TID. Dx: C34.90, R63.4, 03/29/21 15:29:00 EST, Supply Start Date: 03/29/21 Status: Ordered omeprazole 20 mg oral enteric coated capsule 1 capsule = 20 mg, By Mouth, Daily, # 90 capsule, 3 Refills, Maintenance, 07/08/21 15:23:00 EST, ECCapsule, [facility]/pharmacy #0957, Partial fill upon patient request if the prescription is for a schedule II opioid drug., 154.8, cm, 06/29/21 9:00:00 EST,... Start Date: 07/08/21 Status: Ordered Stiolto Respimat 60 ACT 2.5 mcg-2.5 mcg/inh inhalation aerosol 2 puffs, Inhalation, Every 24 hours, TO REPLACE TIOTROPIUM., # 4 mL, 11 Refills, [facility] 09322, 154.8, cm, 09/14/21 9:50:00 EDT, Height, 56, kg, 12/09/20 9:16:00 EDT, Dry Weight Start Date: 11/17/21 Status: Ordered Ventolin HFA 108 mcg/inh inhalation aerosol with adapter 2 puffs, Inhalation, 4 times a day, PRN NEEDED FOR WHEEZING, # 18 each, 5 Refills, [facility] 63628, 154.8, cm, 09/14/21 9:50:00 EDT, Height, 56, [...] Clubbing Confirmed Active Drug abuse: Suboxone via [facility] Confirmed Active Esophageal reflux (GERD) Confirmed 05/09/12 Active JASON (generalized anxiety disorder) Confirmed Active HPV: Positive in 07/15; 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, negative in 10/16 Confirmed Active Hypertension Confirmed 08/23/10 Active Lung cancer Confirmed Active Lung nodules Confirmed Active Opioid use disorder Confirmed Active Osteoporosis Confirmed Active Pain in finger of right hand Confirmed Active *[id number] paige Escamilla Confirmed Active Pelvic mass Confirmed [...] Team Personnel Name: Jennyfer Stokes NP Position: [facility] PCO Associate Professional Member Role: PCP Address: Address: [address] [place] [address]- [place] Care Team Related Persons Name: JOSELIN SCHMIDT Address: home [address] [place] [address] Name: ALYSE HAUSER Address: home [address] [place] [id number] Name: NO, ONE AT THIS TIME
--- OUTSIDE RECORDS SUMMARY | 2022-12-26 10:33 | XMS_ITS | Continuity of Care Document ---
Author Name Unknown Organization [facility] Address [address] [place] [address]- Care Team Providers Care Stock Replenisher Name Role Phone Mavis Allen Primary Care Physician Encounter [facility] Date(s): 10/20/22 - 12/02/22 [facility] [address] [place], [place] [address] Attending Physician: Micah Simpson MD Admitting Physician: Micah Simpson MD Referring Physician: Marcio Childers MD Allergies, Adverse Reactions, Alerts Substance Reaction Severity Status Zoloft O/E - Parkinsonian tremor Ac tive Rubber Active Other Environmental Allergy 1 Active 1ELASTIC Immunizations Given and Recorded Vaccine Date Status Refusal Reason [id number] 12y+ bivalent booster vax 05/11/22 Recorded influenza [...] vaccine, inactivated 04/23/08 Give n SARS-CoV-2 mRNA (aygonul-sfqd-kgnyt) vax 12/14/21 Given SARS-CoV-2 mRNA (dmhhbqa-pjow-ceygb) vax 09/14/21 Given SARS-CoV-2 (COVID-19) mRNA BNT-162b2 [...] 1 Refills, Maintenance, 11/18/22 15:43:00 EDT, Tablet, [facility]/pharmacy #0957, Partial fill upon patient request if the prescription is for a schedule II opioid drug., 154.94, cm, 11/18/22 15:19:00 EDT, H... Start Date: 11/18/22 Status: Ordered calcium-vitamin D 600 mg-400 intl units oral tablet 1 tablet, By Mouth, 2 times a day with meals, # 180 tablet, 0 Refills, Maintenance, 11/17/22 12:06:00 EDT, [facility] STORE 93555, 90, TAKE 1 TABLET BY MOUTH TWICE [...] Refills, Maintenance, 11/18/22 16:36:00 EDT, DIS Tablet, [facility]/pharmacy #0957, Partial [...] EACH USE., # 12 each, 11 Refills, [facility] 10687, 154.8, cm, 09/14/21 9:50:00 EDT, Height, 56, kg, 12/09/20 9:16:00 EDT, Dry Weight Start Date: 11/17/21 Status: Ordered fluticasone 50 mcg/inh nasal spray See Instructions, USE 1 SPRAY IN EACH NOSTRIL DAILY, # 48 mL, 11 Refills, [facility] 18184, 90, USE 1 SPRAY IN EACH NOSTRIL DAILY, 154.8, cm, 09/14/21 9:50:00 EDT, Height, 56, kg, 12/09/20 9:16:00 EDT, Dry Weight Start Date: 11/15/21 Status: Ordered lisinopril 10 mg oral tablet 1, tablet, By Mouth, Daily, # 90 tablet, Refills 3, Route to Pharmacy Electronically, [facility] 29476, 154.8, cm, 09/14/21 9:50:00 EDT, Height, 56, kg, 12/09/20 9:16:00 EDT, Dry Weight Start Date: 12/07/21 Status: Ordered melatonin 3 mg oral tablet 2 tablet = 6 mg, By Mouth, Daily at bedtime, PRN Insomnia, # 60 tablet, 2 Refills, Maintenance, 08/04/22 12:21:00 EDT, [facility]/pharmacy #0957, [...] 0 Refills, Maintenance, 08/01/22 14:52:00 EDT, ECCapsule, [facility]/pharmacy #0957, [...] Active Esophageal reflux (GERD) Confirmed 05/09/12 Active AJSON (generalized anxiety disorder) Confirmed Active HPV: Positive in 07/15; 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, negative in 10/16 Confirmed Active Hypertension Confirmed 08/23/10 Active Insomnia Confirmed Active Lung cancer Confirmed Active Lung nodules Confirmed Active Opioid dependence Confirmed Active Opioid use disorder Confirmed Active Osteoporosis Confirmed Active Pain in finger of right hand Confirmed Active Palpitations Confirmed Active Papule of skin Confirmed Active *[phone] Senior Investigator Sandra Rob Confirmed Active Pelvic mass Confirmed [...] Primary Care Nurse Name: Mavis Allen Position: [facility] PCO Associate Professional Member Role: PCP Address: Address: [address] [place] [address]. [address] [place], [place] [address] Name: Allyn Rhoades Position: S RN Member [...] JOSELIN SCHMIDT Address: home [address] [place] [address] Name: ALYSE HAUSER Address: home [address] [place] [address] Name: NO, ONE AT THIS TIME
--- OUTSIDE RECORDS SUMMARY | 2022-12-26 10:33 | XMS_ITS | Continuity of Care Document ---
Author Name Unknown Organization [facility] Address [address] [place] [address]- Care Team Providers Care Wrapper Caser Name Role Phone Adalberto Murcia MD Primary Care Physician Encounter [facility] Date(s): 07/13/21 - 08/12/21 [facility] [address] [place] [address]- Allergies, Adverse Reactions, Alerts Substance Reaction Severity [...] Live 05/23/16 Recorded Influenza Virus Vaccine (oldterm) 10/18/20 Recorde d tetanus-diphtheria toxoids (Td) 02/08/19 Given [...] 17:04:00 EDT, Aerosol, Route to Pharmacy Electronically, [id number]... Start Date: 08/03/20 Status: Ordered BiPAP Machine [...] 56 tablet, 3 Refills, Acute, [facility], 154.9, cm, 06/11/20 9:48:00 EST, Height, 58, [...] 99 months Please fax to [facility], [phone],... Start Date: 06/30/17 Status: Ordered CPAP Equipment See Instructions, # 1 each, Refills 12, Tot. Refills 12, Maintenance, BiPAP supplies: Mask, tubing,filters, headgear, chin strap, heated water chamber Dx: ELSA G47.33 Length of need 99 months Please fax to [facility] fax # [phone], 07/02/20 14:50:0... Start Date: 07/02/20 Status: Ordered cyanocobalamin 500 mcg oral tablet 1 tablet = 500 mcg, By Mouth, Daily, on empty stomach, # 90 tablet, 3 Refills, Maintenance, 03/26/21 20:06:00 EST, Tablet, [facility]/pharmacy #[id number], Partial fill [...] 11 Refills, Maintenance, 11/05/20 17:11:00 EDT, [facility]/pharmacy #0957, 1 sprays Nasal Daily, 154.9, cm, 10/13/20 7:56:00 EDT, Height, 58, kg, 06/05/20 12:02:00 EST, Dry Weight Start Date: 11/05/20 Status: Ordered Flovent HFA 220 mcg/inh inhalation aerosol See Instructions, TAKE 2 PUFFS BY MOUTH TWICE A DAY RINSE MOUTH AND THROAT AFTER EACH USE, # 12 Unknown, 11 Refills, Soft Stop, 11/05/20 17:11:00 EDT, [facility]/pharmacy #0957, 154.9, cm, 10/13/20 7:56:00 EDT, Height, 58, kg, 06/05/20 12:02:00 EST, Dry Weight Start Date: 11/05/20 Status: Ordered Inderal LA 80 mg oral capsule, extended release 80 mg, 1, capsule, By Mouth, Daily, # 30 capsule, Refills 3, Tot. Refills 3, Maintenance, 06/23/20 10:00:00 EST, Route to Pharmacy Electronically, [facility]/pharmacy #0957, To replace Topamax. Partial fillupon patient request if the prescription is for a... Start Date: 06/23/20 Status: Ordered lisinopril 10 mg oral tablet 10 mg, 1, tablet, By Mouth, Daily, # 90 tablet, Refills 3, Tot. Refills 3, Maintenance, 09/28/20 13:15:00 EDT, Route to Pharmacy Electronically, [facility]/pharmacy #0957, 154.9, cm, 09/22/20 10:26:00 EDT, Height, 58, kg, 06/05/20 12:02:00 EST, Dry Weight Start Date: 09/28/20 Stop Date: 09/23/21 Status: Ordered melatonin 3 mg oral tablet 1 tablet = 3 mg, By Mouth, Daily at bedtime, PRN Insomnia, # 60 tablet, 11 Refills, Maintenance, 03/29/21 21:06:00 EST, [facility]/pharmacy #0957, Partial [...] each, Refills 3, Tot. Refills 3, Maintenance, [facility] Ensure 1 can TID. Dx: C34.90, R63.4, [...] Active Clubbing(Confirmed) Active Drug abuse: Suboxone via [facility](Confirmed) Active Esophageal reflux (GERD)(Confirmed) 05/09/12 [...]
--- OUTSIDE RECORDS SUMMARY | 2022-12-26 10:33 | XMS_ITS | Continuity of Care Document ---
Author Name Unknown Organization [facility] ter Address [address] [place] [address]- Care Team Providers Care Stock Shipper Name Role Phone Adalberto Murcia MD Primary Care Physician Encounter [facility] Date(s): 12/23/20 - 03/03/[address] [address] Attending Physician: Marie Muir MD Admitting Physician: Marie Muir MD Referring Physician: Marie Muir MD Allergies, Adverse Reactions, [...] 17:04:00 EDT, Aerosol, Route to Pharmacy Electronically, [id number]... Start Date: 08/03/20 Status: Ordered BiPAP Machine [...] 56 tablet, 3 Refills, Acute, [facility], 154.9, cm, 06/11/20 9:48:00 EST, Height, 58, kg, 06/05/20 12:02:00 EST, Dry Weight Start Date: 08/03/20 Status: Ordered clonazePAM 1 mg oral tablet 1 tablet = 1 mg, By Mouth, 3 times a day, PRN Anxiety, Please dispense on/after 03/08/21, # 60 tablet, 0 Refills, Maintenance, 02/22/21 15:35:00 EDT, Tablet, [facility]/pharmacy #0957, 154.8, cm, 12/09/20 9:16:00 EDT, Height, 56, kg, 12/09/20 9:16:00 EDT, Dry... Start Date: 02/22/21 Status: Ordered CPAP Equipment See Instructions, # 1 units, Refills 12, Tot. Refills 12, Maintenance, BIPAP supplies: Mask, tubing, filters, headgear, chin strap, water chamber 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) Lengthof need 99 months Please fax to [facility], [phone],... Start Date: 06/30/17 Status: Ordered CPAP Equipment See Instructions, # 1 each, Refills 12, Tot. Refills 12, Maintenance, BiPAP supplies: Mask, tubing,filters, headgear, chin strap, heated water chamber Dx: ELSA G47.33 Length of need 99 months Please fax to [facility] fax # [phone], 07/02/20 14:50:0... Start Date: 07/02/20 Status: Ordered Eucerin Unscented topical lotion See Instructions, apply to skin daily, dispense 1 jar, # 1 each, 11 Refills, Maintenance, 09/25/19 16:37:00 EDT, [facility]/pharmacy #0957, apply to skin daily, dispense [...] Gm, 11 Refills, Maintenance, 11/05/20 17:11:00 EDT, [facility]/pharmacy #0957, 1 sprays Nasal Daily, 154.9, cm, 10/13/20 7:56:00 EDT, Height, 58, kg, 06/05/20 12:02:00 EST, Dry Weight Start Date: 11/05/20 Status: Ordered Flovent HFA 220 mcg/inh inhalation aerosol See Instructions, TAKE 2 PUFFS BY MOUTH TWICE A DAY RINSE MOUTH AND THROAT AFTER EACH USE, # 12 Unknown, 11 Refills, Soft Stop, 11/05/20 17:11:00 EDT, [facility]/pharmacy #0957, 154.9, cm, 10/13/20 7:56:00 EDT, Height, 58, kg, 06/05/20 12:02:00 EST, Dry Weight Start Date: 11/05/20 Status: Ordered Inderal LA 80 mg oral capsule, extended release 80 mg, 1, capsule, By Mouth, Daily, # 30 capsule, Refills 3, Tot. Refills 3, Maintenance, 06/23/20 10:00:00 EST, Route to Pharmacy Electronically, [facility]/pharmacy #0957, To replace Topamax. Partial fillupon patient request if the prescription is for a... Start Date: 06/23/20 Status: Ordered lisinopril 10 mg oral tablet 10 mg, 1, tablet, By Mouth, Daily, # 90 tablet, Refills 3, Tot. Refills 3, Maintenance, 09/28/20 13:15:00 EDT, Route to Pharmacy Electronically, [facility]/pharmacy #0957, 154.9, cm, 09/22/20 10:26:00 EDT, Height, 58, kg, 06/05/20 12:02:00 EST, Dry Weight Start Date: 09/28/20 Stop Date: 09/23/21 Status: Ordered nicotine 2 mg oral transmucosal lozenge 1 lozenge = 2 mg, By Mouth, Every 2 hours, # 72 each, 11 Refills, Maintenance, 10/13/20 8:35:00 EDT, [facility]/pharmacy #0957, Partial fill upon patient request [...] 11 Refills, Maintenance, 11/05/20 17:11:00 EDT, Aerosol, [facility]/pharmacy #0957, 154.9, cm, 10/13/20 7:56:00 EDT, [...] Clubbing(Confirmed) [facility]: [facility] Active Esophageal reflux (GERD)(Confirmed) 05/09/12 Active [...]
--- OUTSIDE RECORDS SUMMARY | 2022-12-26 10:33 | XMS_ITS | Continuity of Care Document ---
Author Name Unknown Organization [facility] Address [address] [place] [address]- Care Team Providers Care Bottling Room Worker Name Role Phone Mavis Allen Primary Care Physician Encounter [facility] Date(s): 06/08/22 - 07/08/[address] [address]- Attending Physician: Angelina Mendoza Admitting Physician: Angelina Mendoza Referring Physician: AdmtrAngelina Allergies, Adverse Reactions, Alerts Substance Reaction Severity Status Zoloft O/E - Parkinsonian tremor Ac tive Rubber Active Other Environmental Allergy 1 Active 1ELASTIC Immunizations Given and Recorded Vaccine Date Status Refusal Reason [id number] 12y+ bivalent booster vax 05/11/22 Recorded influenza [...] vaccine, inactivated 04/23/08 Give n SARS-CoV-2 mRNA ([id number]) vax 12/14/21 Given SARS-CoV-2 mRNA (spgjshe-vqxd-huyhc) vax 09/14/21 Given SARS-CoV-2 (COVID-19) mRNA BNT-162b2 [...] Refills, Maintenance, 05/26/22 19:48:00 EST, [facility], 154.8, cm, 05/25/22 13:21:00 EST, Height, 56, [...] with meals, # 180 tablet, 1 Refills, [facility], 90, TAKE 1 TABLET BY MOUTH TWICE [...] tablet, 0 Refills, Maintenance, 05/12/22 8:22:00 EST, [facility]/pharmacy #2866, Partial fill upon patient request if the prescription is for a schedule II opioid drug., 1... Start Date: 05/12/22 Status: Ordered CPAP Equipment See Instructions, # 1 units, Refills 12, Tot. 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 Start Date: 06/30/17 Status: Ordered CPAP Equipment See Instructions, # 1 each, Refills 12, Tot. Refills 12, Maintenance, BiPAP supplies: Mask, tubing,filters, headgear, chin strap, heated water chamber Dx: ELSA G47.33 Length of need 99 months Please fax to [facility] fax # [phone], 07/02/20 14:50:0... Start Date: 07/02/20 Status: Ordered cyanocobalamin 500 mcg oral tablet 1 tablet = 500 mcg, By Mouth, Daily, on empty stomach, # 90 tablet, 3 Refills, Maintenance, 03/26/21 20:06:00 EST, Tablet, [facility]/pharmacy #0957, Partial fill upon patient request if the prescription isfor a schedule II opioid drug., 154.8, cm, 03/23/21... Start Date: 03/26/21 Status: Ordered Flovent HFA 220 mcg/inh inhalation aerosol 2 puffs, Inhalation, 2 times a day, AND THROAT AFTER EACH USE., # 12 each, 11 Refills, [facility], 154.8, cm, 09/14/21 9:50:00 EDT, Height, 56, kg, 12/09/20 9:16:00 EDT, Dry Weight Start Date: 11/17/21 Status: Ordered fluticasone 50 mcg/inh nasal spray See Instructions, USE 1 SPRAY IN EACH NOSTRIL DAILY, # 48 mL, 11 Refills, [facility], 90, USE 1 SPRAY IN EACH NOSTRIL DAILY, 154.8, cm, 09/14/21 9:50:00 EDT, Height, 56, kg, 12/09/20 9:16:00 EDT, Dry Weight Start Date: 11/15/21 Status: Ordered lisinopril 10 mg oral tablet 1, tablet, By Mouth, Daily, # 90 tablet, Refills 3, Route to Pharmacy Electronically, [facility], 154.8, cm, 09/14/21 9:50:00 EDT, Height, 56, kg, 12/09/20 9:16:00 EDT, Dry Weight Start Date: 12/07/21 Status: Ordered melatonin 3 mg oral tablet 2 tablet = 6 mg, By Mouth, Daily at bedtime, PRN Insomnia, # 60 tablet, 2 Refills, Maintenance, 04/13/22 16:50:00 EST, [facility]/pharmacy #0957, Partial fill upon patient request if [...] each, 11 Refills, Maintenance, 10/13/20 8:35:00 EDT, [facility]/pharmacy #0957, Partial fill upon patient request if the prescription is for a schedule II opioid drug., 1 lozenge By Mouth Every 2 hours, 154.9,... Start Date: 10/13/20 Status: Ordered Nutritional Supplements See Instructions, # 90 each, Refills 3, Tot. Refills 3, Maintenance, [place] Ensure 1 can TID. Dx: C34.90, R63.4, 03/29/21 15:29:00 EST, Supply Start Date: 03/29/21 Status: Ordered omeprazole 20 mg oral enteric coated capsule 1 capsule = 20 mg, By Mouth, Daily, # 90 capsule, 3 Refills, Maintenance, 07/08/21 15:23:00 EST, ECCapsule, [facility]/pharmacy #0957, Partial fill upon patient request if [...] FOR WHEEZING, # 18 each, 5 Refills, [facility], 154.8, cm, 09/14/21 9:50:00 EDT, Height, 56, [...] Clubbing Confirmed Active Drug abuse: Suboxone via [facility] Confirmed Active Esophageal reflux (GERD) Confirmed 05/09/12 Active JASON (generalized anxiety disorder) Confirmed Active HPV: Positive in 07/15; 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, negative in 10/16 Confirmed Active Hypertension Confirmed 08/23/10 Active Lung cancer Confirmed Active Lung nodules Confirmed Active Opioid use disorder Confirmed Active Osteoporosis Confirmed Active Pain in finger of right hand Confirmed Active Palpitations Confirmed Active *[id number] paige Escamilla Confirmed Active Pelvic mass Confirmed [...] 50 years <1ppd; entered on: 06/22/22 Sex Note * Event Display: CT Scan Abdomen, Non- BH Authored Date: * Event Display: CT Scan Chest, Non- BH Authored Date: * Event Display: CT Scan Chest, Non- BH Authored Date: * Event Display: CT Scan Chest, Non- BH Authored Date: * Event Display: X-Ray Chest, Non- BH Authored Date: * Event Display: X-Ray Chest, Non- BH Authored Date: * Event Display: X-Ray Chest, Non- BH Authored Date: * Event Display: CT Scan Neck, Non- BH Authored Date: * Event Display: MRI Head, Non- Authored Date: * Adalberto Murcia MD: REVIEW Event Display: Non Radiology Results Authored Date: * Adalberto Murcia MD: REVIEW Event Display: Non Radiology Results Authored Date: * Alicia Rojas: PERFORM, SIGN, VERIFY Event Display: Patient Education/Instruction Authored Date: [facility] Clinical Summary Person Information Name ANA MARIA SCHMIDT Age 55 Years 1955 12:00 AM PCP Adalberto Murcia MD PCP [facility]# [id number] Reason for Visit: Allergy Info: Latex Vital Signs Height Weight BMI Blood Pressure / Temperature Pulse Rate Respiratory Rate 02 Sat Mode of Delivery / Medication Information Albuterol (ProAir HFA 90 mcg/inh inhalation aerosol with adapter) 2 puffs, Inhalation, 4 times a day, As Needed, as needed for shortness of breath or wheezing, Refills: 11 Aripiprazole (Abilify 2 mg oral tablet) 1 tablet, Oral, Tomorrow, Refills: 0 Calcium And Vitamin D Combination (calcium and vitamin D combination 250 mg-125 u oral tablet) 1 tablet, Oral, twice a day, Refills: 11 Citalopram (citalopram 10 mg oral tablet) 1 tablet, Oral, Tomorrow, Refills: 0 Fluticasone (Flovent HFA 110 mcg/inh inhalation aerosol with adapter) 2 puffs, Inhalation, twice a day, Refills: 11 Fluticasone Nasal (Flonase 0.05 mg/inh nasal spray) 1 sprays, Nasal, Tomorrow, Refills: 11 Gabapentin (gabapentin 300 mg oral capsule) , See Instructions, 1 capsule By Mouth 1 time/day for the first week, if no better 1 capsule By Mouth 2 times /day for the second week, if no better 1 capsule By Mouth 3 times/day for the next week, Refills: 0 Ibuprofen (ibuprofen 600 mg oral tablet) 1 tablet, Oral, 4 times a day, As Needed, Pain, Refills: 0 Indomethacin (indomethacin 50 mg oral capsule) 1 capsule, Oral, 3 times a day, As Needed, for gout pain, Refills: 1 Lisinopril (lisinopril 10 mg oral tablet) 1 tablet, Oral, Tomorrow, Refills: 11 Tiotropium (Spiriva HandiHaler 18 mcg Inhalation Capsule) 1 capsule, Inhalation, Tomorrow, Refills:3 Varenicline (chantix 1mg tablet) 1 tablet, Oral, twice a day, after meals, to begin after completing starter pack, Refills: 1 Varenicline (Chantix Starter Pack 0.5 mg-1 mg oral tablet) 1 tablet, Oral, twice a day, Refills: 0 Problem List Date Problem 03/07/07 Chronic type C viral hepatitis 03/07/07 Bipolar disorder 03/07/07 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 Diagnostic Results Lab Result Value Date Lead Hemoglobin A1C LDL 121 08/16/10 HDL 39 08/16/10 Triglycerides 109 08/16/10 Total Cholesterol 182 08/16/10 Disclaimer: The information provided is of a general nature and is intended to be used in conjunction with the recommendations and advice of your health care practitioner. Every effort has been made to ensure that the information provided is accurate and complete at the time it is provided to you however, as your needs change, or, as new information becomes available, different or additional instructions may be required. If you have questions, please consult with your primary care provider or pharmacist, as appropriate. This information is not intended to serve as substitution for assessment and evaluation by a qualified health care provider. If you do not have a primary care provider, you may find a [facility] provider by calling [facility] at [phone]. Patient Education Information Follow-up Details: Patient Education Material: * [facility] ([facility]) Arleen: PERFORM, SIGN, VERIFY Event Display: Patient Education/Instruction Authored Date: [id number] [facility] Clinical Summary Person Information Name ANA MARIA SCHMIDT Age 55 Years 1955 12:00 AM PCP Adalberto Mucria MD PCP Reason for Visit: Allergy Info: Latex Vital Signs Height Weight BMI Blood Pressure / Temperature Pulse Rate Respiratory Rate 02 Sat Mode of Delivery / Medication Information Albuterol (ProAir HFA 90 mcg/inh inhalation aerosol with adapter) 2 puffs, Inhalation, 4 times a day, 1 each, As Needed, as needed for shortness of breath or wheezing, Refills: 11 Albuterol (ProAir HFA 90 mcg/inh inhalation aerosol with adapter) 2 puffs, Inhalation, 4 times a day, 1 each, As Needed, as needed for shortness of breath or wheezing, Refills: 11 Aripiprazole (Abilify 2 mg oral tablet) 1 tablet, Oral, Tomorrow, 90 tablet, Refills: 0 Calcium And Vitamin D Combination (calcium and vitamin D combination 250 mg-125 u oral tablet) 1 tablet, Oral, twice a day, 60 tablet, Refills: 11 Citalopram (citalopram 10 mg oral tablet) 1 tablet, Oral, Tomorrow, 30 tablet, Refills: 0 Colchicine (colchicine 0.6 mg oral tablet) 1 tablet, Oral, every hour, Do not exceed 3 tablets in 24 hours at the first sign of a gout flare followed by 0.6 mg one hour later, 10 tablet, As Needed, gout pain, Refills: 0 DiphenhydrAMINE (diphenhydramine 25 mg oral capsule) 1 capsule, Oral, 3 times a day, 90 capsule, AsNeeded, for itching, Refills: 1 Fluticasone (Flovent HFA 110 mcg/inh inhalation aerosol with adapter) 2 puffs, Inhalation, twice a day, 12 Gm, Refills: 11 Fluticasone Nasal (Flonase 0.05 mg/inh nasal spray) 1 sprays, Nasal, Tomorrow, 16 Gm, Refills: 11 Ibuprofen (ibuprofen 600 mg oral tablet) 1 tablet, Oral, 4 times a day, 40 tablet, As Needed, Pain,Refills: 0 Lisinopril (lisinopril 10 mg oral tablet) 1 tablet, Oral, Tomorrow, 30 tablet, Refills: 11 Tiotropium (Spiriva HandiHaler 18 mcg Inhalation Capsule) 1 capsule, Inhalation, Tomorrow, 90 capsule, Refills: 3 Varenicline (chantix 1mg tablet) 1 tablet, Oral, twice a day, after meals, to begin after completing starter pack, 1 pack/packet, Refills: 1 Varenicline (Chantix Starter Pack 0.5 mg-1 mg oral tablet) 1 tablet, Oral, twice a day, 1 pack/packet, Refills: 0 Problem List Date Problem 03/07/07 Chronic type C viral hepatitis 03/07/07 Bipolar disorder 03/07/07 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 Diagnostic Results Lab Result Value Date Lead Hemoglobin A1C LDL 121 08/16/10 HDL 39 08/16/10 Triglycerides 109 08/16/10 Total Cholesterol 182 08/16/10 Disclaimer: The information provided is of a general nature and is intended to be used in conjunction with the recommendations and advice of your health care practitioner. Every effort has been made to ensure that the information provided is accurate and complete at the time it is provided to you however, as your needs change, or, as new information becomes available, different or additional instructions may be required. If you have questions, please consult with your primary care provider or pharmacist, as appropriate. This information is not intended to serve as substitution for assessment and evaluation by a qualified health care provider. If you do not have a primary care provider, you may find a [facility] provider by calling [facility] at [phone]. Patient Education Information Follow-up Details: Patient Education Material: Patient Care team information Care Team Personnel Name: Mavis Allen Position: [facility] Associate Professional Member Role: PCP Address: Address: [address] [place] [address]. [address] [place] [address]- Care Team Related Persons Name: JOSELIN SCHMIDT Address: home [address] [place] [id number] Name: ALYSE HAUSER Address: home [address] [place] [address] Name: NO, ONE AT THIS TIME
--- OUTSIDE RECORDS SUMMARY | 2022-12-26 10:33 | XMS_ITS | Continuity of Care Document ---
Author Name Unknown Organization [facility] Address [address] [place] [address]- Care Team Providers Care Gear Hobber Set Up Operator Name Role Phone Divina MARINELLI, Adalberto Reeder Primary Care Physician Encounter [facility] Date(s): 12/28/20 - 01/27/[address] [address]- Allergies, Adverse Reactions, Alerts Substance Reaction Severity [...] 17:04:00 EDT, Aerosol, Route to Pharmacy Electronically, [id number]... Start Date: 08/03/20 Status: Ordered BiPAP Machine [...] 56 tablet, 3 Refills, [facility], 154.9, cm, 06/11/20 9:48:00 EST, Height, 58, kg, 06/05/20 12:02:00 EST, Dry Weight Start Date: 08/03/20 Status: Ordered clonazePAM 1 mg oral tablet 1 tablet = 1 mg, By Mouth, 3 times a day, PRN Anxiety, Please dispense on/after 01/07/21, # 70 tablet, 0 Refills, Maintenance, 12/29/20 9:26:00 EDT, Tablet, [facility]/pharmacy #0957, 154.8, cm, 12/09/20 9:16:00 EDT, Height, 56, kg, 12/09/20 9:16:00 EDT, Dry W... Start Date: 12/29/20 Status: Ordered CPAP Equipment See Instructions, # 1 units, Refills 12, Tot. 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 Start Date: 06/30/17 Status: Ordered CPAP Equipment See Instructions, # 1 each, Refills 12, Tot. Refills 12, Maintenance, BiPAP supplies: Mask, tubing,filters, headgear, chin strap, heated water chamber Dx: ELSA G47.33 Length of need 99 months Please fax to [facility] fax # [phone], 07/02/20 14:50:0... Start Date: 07/02/20 Status: Ordered Eucerin Unscented topical lotion See Instructions, apply to skin daily, dispense 1 jar, # 1 each, 11 Refills, Maintenance, 09/25/19 16:37:00 EDT, [facility]/pharmacy #0957, apply to skin daily, dispense 1 [...] Gm, 11 Refills, Maintenance, 11/05/20 17:11:00 EDT, [facility]/pharmacy #0957, 1 sprays Nasal Daily, 154.9, cm, 10/13/20 7:56:00 EDT, Height, 58, kg, 06/05/20 12:02:00 EST, Dry Weight Start Date: 11/05/20 Status: Ordered Flovent HFA 220 mcg/inh inhalation aerosol See Instructions, TAKE 2 PUFFS BY MOUTH TWICE A DAY RINSE MOUTH AND THROAT AFTER EACH USE, # 12 Unknown, 11 Refills, Soft Stop, 11/05/20 17:11:00 EDT, [facility]/pharmacy #0957, 154.9, cm, 10/13/20 7:56:00 EDT, Height, 58, kg, 06/05/20 12:02:00 EST, Dry Weight Start Date: 11/05/20 Status: Ordered Inderal LA 80 mg oral capsule, extended release 80 mg, 1, capsule, By Mouth, Daily, # 30 capsule, Refills 3, Tot. Refills 3, Maintenance, 06/23/20 10:00:00 EST, Route to Pharmacy Electronically, [facility]/pharmacy #0957, To replace Topamax. Partial fillupon patient request if the prescription is for a... Start Date: 06/23/20 Status: Ordered lisinopril 10 mg oral tablet 10 mg, 1, tablet, By Mouth, Daily, # 90 tablet, Refills 3, Tot. Refills 3, Maintenance, 09/28/20 13:15:00 EDT, [facility]9, cm, 09/22/20 10:26:00 EDT, Height, 58, kg, 06/05/20 12:02:00 EST, Dry Weight Start Date: 09/28/20 Stop Date: 09/23/21 Status: Ordered nicotine 2 mg oral transmucosal lozenge 1 lozenge = 2 mg, By Mouth, Every 2 hours, # 72 each, 11 Refills, Maintenance, 10/13/20 8:35:00 EDT, [facility]/pharmacy #0957, Partial fill upon patient request if [...] 11 Refills, Maintenance, 11/05/20 17:11:00 EDT, Aerosol, [facility]/pharmacy #0957, 154.9, cm, 10/13/20 7:56:00 EDT, Height, [...] 11 Refills, Maintenance, 11/12/20 9:46:00 EDT, Aerosol, [facility]/pharmacy #0957, Partial fill upon patient request if [...] Active Clubbing(Confirmed) Active Drug abuse: Suboxone via [facility](Confirmed) Active Esophageal reflux (GERD)(Confirmed) [...]
--- OUTSIDE RECORDS SUMMARY | 2022-12-26 10:34 | XMS_ITS | Continuity of Care Document ---
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 May repeat X 1, # [...] 3 Refills, Maintenance, 02/18/20 9:41:00 EDT, Tablet, [facility]/pharmacy #0957, 154.9, cm, 12/30/19 11:15:00 EDT, Height, 55.3, kg, 04/19/19 8:36... Start Date: 02/18/20 Status: Ordered clonazePAM 1 mg oral tablet 1 tablet = 1 mg, By Mouth, 3 times a day, Please fax to [facility] [address] [phone], # 90 tablet, 2 Refills, Maintenance, 09/17/18 12:46:43 EDT, Tablet Start Date: 09/17/18 Status: Ordered CPAP Equipment See Instructions, # 1 units, Refills 12, Tot. 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, [phone],... Start Date: 06/30/17 Status: Ordered CPAP Equipment See Instructions, # 1 each, Refills 12, Tot. Refills 12, Maintenance, BiPAP supplies: Mask, tubing,filters, headgear, chin strap, heated water chamber Dx: ELSA G47.33 Length of need 99 months Please fax to [facility] fax # [phone], 07/02/20 14:50:0... Start Date: 07/02/20 Status: Ordered Eucerin Unscented topical lotion See Instructions, apply to skin daily, dispense 1 jar, # 1 each, 11 Refills, Maintenance, 09/25/19 16:37:00 EDT, [facility]/pharmacy #0957, apply to skin daily, dispense 1 [...] Gm, 11 Refills, Maintenance, 02/18/20 9:43:00 EDT, [facility]/pharmacy #0957,1 sprays Nasal Daily, 154.9, cm, 12/30/19 11:15:00 EDT, Height, 55.3, kg, 04/19/19 8:36:00 EST, DryWeight Start Date: 02/18/20 Status: Ordered Flovent HFA 220 mcg/inh inhalation aerosol See Instructions, TAKE 2 PUFFS BY MOUTH TWICE A DAY RINSE MOUTH AND THROAT AFTER EACH USE, # 12 Unknown, 11 Refills, Soft Stop, 02/18/20 9:42:00 EDT, [facility]/pharmacy #0957, 154.9, cm, 12/30/19 11:15:00 EDT, Height, 55.3, kg, 04/19/19 8:36:00 EST, Dry Weight Start Date: 02/18/20 Status: Ordered Inderal LA 80 mg oral capsule, extended release 80 mg, 1, capsule, By Mouth, Daily, # 30 capsule, Refills 3, Tot. Refills 3, Maintenance, 06/23/20 10:00:00 EST, Route to Pharmacy Electronically, [facility]/pharmacy #0957, To replace Topamax. Partial fillupon patient request if the prescription is for a... Start Date: 06/23/20 Status: Ordered lisinopril 10 mg oral tablet 10 mg, 1, tablet, By Mouth, Daily, # 30 tablet, Refills 11, Tot. Refills 11, Maintenance, 02/18/20 9:43:00 EDT, Route to Pharmacy Electronically, [facility]/pharmacy #0957, 154.9, cm, 12/30/19 11:15:00 EDT,Height, 55.3, [...] 04/20/20 13:51:00 EST, Route to Pharmacy Electronically, [id number], [facility]/pharmacy #0957, 154.9, cm, 12/30/19 11:15:00 EDT, Height,... Start Date: 04/20/20 Stop Date: 04/15/21 Status: Ordered Stiolto Respimat 60 ACT 2.5 mcg-2.5 mcg/inh inhalation aerosol 2 puffs, Inhalation, Every 24 hours, to replace tiotropium, # 4 Gm, 11 Refills, Maintenance, 02/18/20 9:43:00 EDT, Aerosol, [facility]/pharmacy #0957, 154.9, cm, 12/30/19 11:15:00 EDT, Height, [...] tablet, 11 Refills, Maintenance, 04/20/20 13:59:00 EST, [facility]/pharmacy #0957, 154.9, cm, 12/30/19 11:15:00 EDT, Height, 55.3, kg, 04/19/19 8:36:00 EST, Dry... Start Date: 04/20/20 Status: Ordered Problem List Condition Effective Dates Status Health Status Inform ant Age at leaving school - ged(Confirmed) Active ASCUS(Confirmed) Active 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 Sleep Report(Confirmed) 05/25/11 Active Hep C: Cleared without treatment(Confirmed) Active Clubbing(Confirmed) [facility]: [facility] Active Esophageal reflux (GERD)(Confirmed) 05/09/12 [...]
--- OUTSIDE RECORDS SUMMARY | 2022-12-26 10:34 | XMS_ITS | Continuity of Care Document ---
Author Name Unknown Organization [facility] Address [address] [place] [address]- Care Team Providers Care International Controller Name Role Phone Adalberto Murcia MD Primary Care Physician Encounter [facility] Date(s): 05/21/21 - 07/16/21 [facility] [address] [place], [place] [address] Attending Physician: Marie Muir [...] 17:04:00 EDT, Aerosol, Route to Pharmacy Electronically, [id number]... Start Date: 08/03/20 Status: Ordered BiPAP Machine [...] 56 tablet, 3 Refills, Acute, [facility], 154.9, cm, 06/11/20 9:48:00 EST, Height, 58, [...] [facility], [phone],... Start Date: 06/30/17 Status: Ordered CPAP Equipment See Instructions, # 1 each, Refills 12, Tot. Refills 12, Maintenance, BiPAP supplies: Mask, tubing,filters, headgear, chin strap, heated water chamber Dx: ELSA G47.33 Length of need 99 months Please fax to [facility] # [phone], 07/02/20 14:50:0... Start Date: 07/02/20 Status: Ordered [...] 06/23/20 10:00:00 EST, Route to Pharmacy Electronically, [facility]/pharmacy #0957, To replace Topamax. Partial fillupon patient request if the prescription is for a... Start Date: 06/23/20 Status: Ordered lisinopril 10 mg oral tablet 10 mg, 1, tablet, By Mouth, Daily, # 90 tablet, Refills 3, Tot. Refills 3, Maintenance, 09/28/20 13:15:00 EDT, Route to Pharmacy Electronically, [facility]/pharmacy #0957, 154.9, cm, 09/22/20 10:26:00 EDT, Height, 58, kg, 06/05/20 12:02:00 EST, Dry Weight Start Date: 09/28/20 Stop Date: 09/23/21 Status: Ordered melatonin 3 mg oral tablet 1 tablet = 3 mg, By Mouth, Daily at bedtime, PRN Insomnia, # 60 tablet, 11 Refills, Maintenance, 03/29/21 21:06:00 EST, [facility]/pharmacy #0957, Partial fill upon patient [...] each, Refills 3, Tot. Refills 3, Maintenance, [place] Ensure 1 can TID. Dx: C34.90, R63.4, 03/29/21 15:29:00 EST, Supply Start Date: 03/29/21 Status: Ordered omeprazole 20 mg oral enteric coated capsule 1 capsule = 20 mg, By Mouth, Daily, # 90 capsule, 3 Refills, Maintenance, 07/08/21 15:23:00 EST, ECCapsule, [facility]/pharmacy #0957, Partial fill upon patient request if the prescription is for a schedule II opioid drug., 154.8, cm, 06/29/21 9:00:00 EST,... Start Date: 07/08/21 Status: Ordered Stiolto Respimat 60 ACT 2.5 mcg-2.5 mcg/inh inhalation aerosol 2 puffs, Inhalation, Every 24 hours, to replace tiotropium, # 4 Gm, 11 Refills, Maintenance, 11/05/20 17:11:00 EDT, Aerosol, [facility]/pharmacy #0957, 154.9, cm, 10/13/20 7:56:00 EDT, Height, 58, kg, 06/05/20 12:02:00 EST, Dry Weight Start Date: 11/05/20 Status: Ordered Ventolin HFA 108 mcg/inh inhalation aerosol with adapter 2 puffs, Inhalation, 4 times a day, PRN for wheezing, # 18 Gm, 11 Refills, Maintenance, 11/12/20 9:46:00 EDT, Aerosol, [facility]/pharmacy #0957, Partial fill upon patient [...] Active Clubbing(Confirmed) Active Drug abuse: Suboxone via [facility](Confirmed) Active Esophageal reflux (GERD)(Confirmed) 05/09/12 [...]
--- OUTSIDE RECORDS SUMMARY | 2022-12-26 10:34 | XMS_ITS | Continuity of Care Document ---
Author Name Unknown Organization [facility] Address [address] [place] [address]- Care Team Providers Care Data Control Clerk Name Role Phone Adalberto Murcia MD Primary Care Physician Encounter [facility] Date(s): 05/17/21 - 06/16/21 [facility] [address] [place] [address]- Allergies, Adverse Reactions, Alerts Substance Reaction Severity [...] 17:04:00 EDT, Aerosol, Route to Pharmacy Electronically, [id number]... Start Date: 08/03/20 Status: Ordered BiPAP Machine [...] 56 tablet, 3 Refills, Acute, [facility], 154.9, cm, 06/11/20 9:48:00 EST, Height, 58, [...] need 99 months Please fax to [facility], [phone],... Start Date: 06/30/17 Status: Ordered CPAP Equipment See Instructions, # 1 each, Refills 12, Tot. Refills 12, Maintenance, BiPAP supplies: Mask, tubing,filters, headgear, chin strap, heated water chamber Dx: ELSA G47.33 Length of need 99 months Please fax to [facility] fax # [phone], 07/02/20 14:50:0... Start Date: 07/02/20 Status: Ordered [...] 10:00:00 EST, Route to Pharmacy Electronically, [facility]/pharmacy #0957, To replace Topamax. Partial fillupon patient request if the prescription is for a... Start Date: 06/23/20 Status: Ordered lisinopril 10 mg oral tablet 10 mg, 1, tablet, By Mouth, Daily, # 90 tablet, Refills 3, Tot. Refills 3, Maintenance, 09/28/20 13:15:00 EDT, Route to Pharmacy Electronically, [facility]/pharmacy #0957, 154.9, cm, 09/22/20 10:26:00 EDT, Height, 58, kg, 06/05/20 12:02:00 EST, Dry Weight Start Date: 09/28/20 Stop Date: 09/23/21 Status: Ordered melatonin 3 mg oral tablet 1 tablet = 3 mg, By Mouth, Daily at bedtime, PRN Insomnia, # 60 tablet, 11 Refills, Maintenance, 03/29/21 21:06:00 EST, [facility]/pharmacy #0957, Partial fill upon patient request if the prescription is for a schedule II opioid drug., 154.8, cm, 03/23/21 11... Start Date: 03/29/21 Status: Ordered nicotine 2 mg oral transmucosal lozenge 1 lozenge = 2 mg, By Mouth, Every 2 hours, # 72 each, 11 Refills, Maintenance, 10/13/20 8:35:00 EDT, [facility]/pharmacy #0957, Partial fill upon patient request [...] each, Refills 3, Tot. Refills 3, Maintenance, [place] Ensure 1 can TID. Dx: C34.90, R63.4, [...]
--- OUTSIDE RECORDS SUMMARY | 2022-12-26 10:34 | XMS_ITS | Continuity of Care Document ---
Author Name Unknown Organization [facility] Address [address] [place] [address]- Care Team Providers Care Bilingual Medical Receptionist Name Role Phone Gideon Nice CHURCH COMMUNICATIONS ADMINISTRATOR, Jennyfer Primary Care Physician Encounter [facility] Date(s): 05/12/22 - 06/11/22 [facility] [address] [place], [place] [address] Allergies, Adverse Reactions, Alerts Substance Reaction Severity [...] vaccine, inactivated 04/23/08 Give n SARS-CoV-2 mRNA ([id number]) vax 12/14/21 Given SARS-CoV-2 mRNA (tkgiykw-atye-iqwor) vax 09/14/21 Given SARS-CoV-2 (COVID-19) mRNA BNT-162b2 [...] Refills, Maintenance, 05/26/22 19:48:00 EST, [facility], 154.8, cm, 05/25/22 13:21:00 EST, Height, 56, [...] Refills, [facility], 90, TAKE 1 TABLET BY MOUTH TWICE [...] tablet, 0 Refills, Maintenance, 05/12/22 8:22:00 EST, [facility]/pharmacy #0957, [...] need 99 months Please fax to [facility], [phone],... Start Date: 06/30/17 Status: Ordered CPAP Equipment See Instructions, # 1 each, Refills 12, Tot. Refills 12, Maintenance, BiPAP supplies: Mask, tubing,filters, headgear, chin strap, heated water chamber Dx: ELSA G47.33 Length of need 99 months Please fax to [facility] fax # [phone], 07/02/20 14:50:0... Start Date: 07/02/20 Status: Ordered [...] # 12 each, 11 Refills, [facility], 154.8, cm, 09/14/21 9:50:00 EDT, Height, 56, kg, 12/09/20 9:16:00 EDT, Dry Weight Start Date: 11/17/21 Status: Ordered fluticasone 50 mcg/inh nasal spray See Instructions, USE 1 SPRAY IN EACH NOSTRIL DAILY, # 48 mL, 11 Refills, [facility], 90, USE 1 SPRAY IN EACH NOSTRIL DAILY, 154.8, cm, 09/14/21 9:50:00 EDT, Height, 56, kg, 12/09/20 9:16:00 EDT, Dry Weight Start Date: 11/15/21 Status: Ordered Inderal LA 80 mg oral capsule, extended release 80 mg, 1, capsule, By Mouth, Daily, # 30 capsule, Refills 3, Tot. Refills 3, Maintenance, 06/23/20 10:00:00 EST, Route to Pharmacy Electronically, [facility]/pharmacy #0957, To replace Topamax. Partial fillupon patient request if the prescription is for a... Start Date: 06/23/20 Status: Ordered lisinopril 10 mg oral tablet 1, tablet, By Mouth, Daily, # 90 tablet, Refills 3, Route to Pharmacy Electronically, [facility], 154.8, cm, 09/14/21 9:50:00 EDT, Height, 56, [...] each, Refills 3, Tot. Refills 3, Maintenance, [place] Ensure 1 can TID. Dx: C34.90, R63.4, [...] REPLACE TIOTROPIUM., # 4 mL, 11 Refills, [facility], 154.8, cm, 09/14/21 9:50:00 EDT, Height, 56, kg, 12/09/20 9:16:00 EDT, Dry Weight Start Date: 11/17/21 Status: Ordered Ventolin HFA 108 mcg/inh inhalation aerosol with adapter 2 puffs, Inhalation, 4 times a day, PRN NEEDED FOR WHEEZING, # 18 each, 5 Refills, [facility], 154.8, cm, 09/14/21 9:50:00 EDT, Height, 56, [...] Clubbing Confirmed Active Drug abuse: Suboxone via [facility] Confirmed Active Esophageal reflux (GERD) Confirmed 05/09/12 Active JASON (generalized anxiety disorder) Confirmed Active HPV: Positive in 07/15; 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, negative in 10/16 Confirmed Active Hypertension Confirmed 08/23/10 Active Lung cancer Confirmed Active Lung nodules Confirmed Active Opioid use disorder Confirmed Active Osteoporosis Confirmed Active Pain in finger of right hand Confirmed Active Palpitations Confirmed Active *[id number] paige Escamilla Confirmed Active Pelvic mass Confirmed [...] Team Personnel Name: Jennyfer Stokes NP Position: S PCO Associate Professional Member Role: PCP Address: Address: [address] [place] [address]- Care Team Related Persons Name: JOSELIN SCHMIDT Address: [address] [place] [address] Name: ALYSE HAUSER Address: home [address] [place] [id number] Name: NO, ONE AT THIS TIME
--- OUTSIDE RECORDS SUMMARY | 2022-12-26 10:34 | XMS_ITS | Continuity of Care Document ---
Author Name Unknown Organization [facility] Address [address] [place] [address]- Care Team Providers Care Wharf Tally Clerk Name Role Phone Divina MARINELLI, Adalberto Reeder Primary Care Physician Encounter [facility] Date(s): 08/13/19 - 08/20/[address] [address]- [place] Encounter Diagnosis Whole body pain(Discharge Diagnosis) - 08/13/19 Cramp of toe(Discharge Diagnosis) - 08/13/19 Hypotension(Discharge Diagnosis) - 08/13/19 Attending Physician: Luci Mujica MD Allergies, Adverse [...] Refills, Maintenance, 07/31/19 11:08:00 EDT, Tablet, [facility]/pharmacy #0957, 154.9, cm, 07/04/19 9:38:00 EST, Height, [...] Refills, Maintenance, 05/28/19 12:01:00 EST, Tablet, [facility]/pharmacy #0957, 1 tablet By Mouth 2 times [...] 03/19/19 10:53:39 EST, Route to Pharmacy Electronically, [id number], [facility]/pharmacy #1026 Start Date: 03/19/19 Status: Ordered cetirizine 10 mg oral tablet 1 tablet = 10 mg, By Mouth, Daily, PRN Other, PRN allergies, # 30 tablet, 11 Refills, Maintenance, 05/28/19 12:01:00 EST, Tablet, [facility]/pharmacy #0957, 154.9, cm, 05/28/19 11:40:00 EST, Height, [...] times a day, Please fax to [facility] [address] [phone], # 90 tablet, 2 Refills, Maintenance, 09/17/18 12:46:43 EDT, Tablet Start Date: 09/17/18 Status: Ordered CPAP Equipment See Instructions, # 1 units, Refills 12, Tot. Refills 12, Maintenance, BiPAP supplies: Mask, tubing, filters, headgear, chin strap, heated water chamber Dx: ELSA G47.33 Length of need 99 months Please[facility] to [facility] [phone], 09/04/18 15:13:48 EDT, Co... Start Date: 09/04/18 Status: Ordered CPAP Equipment See Instructions, # 1 units, Refills 12, Tot. Refills 12, Maintenance, BIPAP supplies: Mask, tubing, filters, headgear, chin strap, water chamber 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) Lengthof need 99 months Please fax to [facility] [phone],... Start Date: 06/30/17 Status: Ordered diphenhydrAMINE 25 [...] Gm, 11 Refills, Maintenance, 05/28/19 12:01:00 EST, [facility]/pharmacy #0957, 1 sprays Nasal Daily, 154.9, cm, 05/28/19 11:40:00 EST, Height, 55.3, kg, 04/19/19 8:36:00 EST, Dry Weight Start Date: 05/28/19 Status: Ordered Flovent HFA 220 mcg/inh inhalation aerosol See Instructions, # 12 Unknown, Refills 11 Tot. Refills 11, TAKE 2 PUFFS BY MOUTH TWICE A DAY [place] AND THROAT AFTER EACH USE, [facility]/pharmacy #1026 Start Date: 03/15/19 Status: Ordered lisinopril 10 mg oral tablet 10 mg, 1, tablet, By Mouth, Daily, # 30 tablet, Refills 11, Tot. Refills 11, Maintenance, 05/28/19 12:01:00 EST, Route to Pharmacy Electronically, [facility]/pharmacy #0957, 154.9, cm, 05/28/19 11:40:00 EST, Height, [...] 05/28/19 12:01:00 EST, Route to Pharmacy Electronically, [id number], [facility]/pharmacy #0957, 154.9, cm, 05/28/19 11:40:00 EST, Height,... [...] Clubbing(Confirmed) Active [facility]: [facility]) Active Esophageal reflux (GERD)(Confirmed) 05/09/12 Active JAOSN (generalized anxiety disorder)(Confirmed) Active HPV: Positive in 07/15; neg i n 01/15, negative in 10/16(Confirmed) Active Hypertension(Confirmed) 08/23/10 Active Zachary Duran, [facility] [id number] active care coordination(Confirmed) Active Emphysema of lung: mixed emphysema/UIP(Confirmed) Active Major depressive disorder, [facility](Confirmed) Active Resting tremor(Confirmed) Active Tobacco abuse(Confirmed) Active Tubular adenoma of colon(Confirmed) 1 04/22/19 Active 1repeat screening colonoscopy in 2023 Diagnosis Diagnosis Type Effective Dates Health Status Cl inical Service Informant Whole body pain Discharge Diagnosis 08/13/19 Cramp of toe Discharge Diagnosis 08/13/19 Hypotension Discharge Diagnosis 08/13/19 Social History Social History Type Response Smoking Status 10 or more cigarette s (1/2 pack or more)/day in last 30 days; Other: pt states vapes, states it is approx to 1ppd; entered on: 05/21/18 Sex 1about 7 cigarettes daily
--- OUTSIDE RECORDS SUMMARY | 2022-12-26 10:34 | XMS_ITS | Continuity of Care Document ---
Author Name Unknown Organization [facility] Address [address] [place] [address], [address] [place] [address]- Care Team Providers Care Automobile Repossessor Name Role Phone Divina MARINELLI, Adalberto Reeder Primary Care Physician [facility] Date(s): 06/30/20 - 08/20/20 [facility] [address] [place] [address], [address] [place] [address]- Attending Physician: Kiley Wiseman MD Allergies, Adverse [...] 17:04:00 EDT, Aerosol, Route to Pharmacy Electronically, [id number]... Start Date: 08/03/20 Status: Ordered Ativan 0.5 mg oral tablet 1 tablet = 0.5 mg, By Mouth, Once, call worker to procedure. May repeat X 1, # 2 tablet, 0 Refills, Soft Stop, 04/24/20 11:56:00 EST, Tablet, [facility]/pharmacy #[id number], Partial fill upon patient request if the [...] 11 Refills, Maintenance, 02/18/20 9:43:00 EDT, Tablet, [facility]/pharmacy #0957, 1 tablet By Mouth [...] 56 tablet, 3 Refills, Acute, [facility], 154.9, cm, 06/11/20 9:48:00 EST, Height, 58, kg, 06/05/20 12:02:00 EST, Dry Weight Start Date: 08/03/20 Status: Ordered clonazePAM 1 mg oral tablet 1 tablet = 1 mg, By Mouth, 3 times a day, Please fax to [facility] on [address] [phone], # 90 tablet, 2 Refills, Maintenance, 09/17/18 12:46:43 EDT, Tablet Start Date: 09/17/18 Status: Ordered CPAP Equipment See Instructions, # 1 units, Refills 12, Tot. Refills 12, Maintenance, BIPAP supplies: Mask, tubing, filters, headgear, chin strap, water chamber 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) Lengthof need 99 months Please fax to [facility], [phone],... Start Date: 06/30/17 Status: Ordered CPAP Equipment See Instructions, # 1 each, Refills 12, Tot. Refills 12, Maintenance, BiPAP supplies: Mask, tubing,filters, headgear, chin strap, heated water chamber Dx: ELSA G47.33 Length of need 99 months Please fax to [facility] fax # [phone], 07/02/20 14:50:0... Start Date: 07/02/20 Status: Ordered Eucerin Unscented topical lotion See Instructions, apply to skin daily, dispense 1 jar, # 1 each, 11 Refills, Maintenance, 09/25/19 16:37:00 EDT, [facility]/pharmacy #0957, apply to skin daily, [...] Gm, 11 Refills, Maintenance, 02/18/20 9:43:00 EDT, [facility]/pharmacy #0957,1 sprays Nasal Daily, 154.9, cm, 12/30/19 11:15:00 EDT, Height, 55.3, kg, 04/19/19 8:36:00 EST, DryWeight Start Date: 02/18/20 Status: Ordered Flovent HFA 220 mcg/inh inhalation aerosol See Instructions, TAKE 2 PUFFS BY MOUTH TWICE A DAY RINSE MOUTH AND THROAT AFTER EACH USE, # 12 Unknown, 11 Refills, Soft Stop, 02/18/20 9:42:00 EDT, [facility]/pharmacy #0957, 154.9, cm, 12/30/19 11:15:00 EDT, Height, 55.3, kg, 04/19/19 8:36:00 EST, Dry Weight Start Date: 02/18/20 Status: Ordered Inderal LA 80 mg oral capsule, extended release 80 mg, 1, capsule, By Mouth, Daily, # 30 capsule, Refills 3, Tot. Refills 3, Maintenance, 06/23/20 10:00:00 EST, Route to Pharmacy Electronically, [facility]/pharmacy #0957, To replace Topamax. Partial fillupon patient request if the prescription is for a... Start Date: 06/23/20 Status: Ordered lisinopril 10 mg oral tablet 10 mg, 1, tablet, By Mouth, Daily, # 30 tablet, Refills 11, Tot. Refills 11, Maintenance, 02/18/20 9:43:00 EDT, Route to Pharmacy Electronically, [facility]/pharmacy #0957, 154.9, cm, 12/30/19 11:15:00 EDT,Height, [...] 04/20/20 13:51:00 EST, Route to Pharmacy Electronically, [id number], [facility]/pharmacy #0957, 154.9, cm, 12/30/19 11:15:00 EDT, [...]
--- OUTSIDE RECORDS SUMMARY | 2022-12-26 10:34 | XMS_ITS | Continuity of Care Document ---
Author Name Unknown Organization [facility] Address [address] [place] [address]- Care Team Providers Care Kindergarten Instructional Assistant Name Role Phone Divina MARINELLI, Adalberto Reeder Primary Care Physician [facility]counter [facility] Date(s): 06/26/20 - 07/26/[address] [address]- Allergies, Adverse Reactions, Alerts Substance Reaction Severity [...] 3 Refills, Maintenance, 02/18/20 9:41:00 EDT, Tablet, [facility]/pharmacy #0957, 154.9, cm, 12/30/19 11:15:00 EDT, Height, 55.3, kg, 04/19/19 8:36... Start Date: 02/18/20 Status: Ordered clonazePAM 1 mg oral tablet 1 tablet = 1 mg, By Mouth, 3 times a day, Please fax to [facility] on [facility] [address] [phone], # 90 tablet, 2 Refills, Maintenance, 09/17/18 12:46:43 EDT, Tablet Start Date: 09/17/18 Status: Ordered CPAP Equipment See Instructions, # 1 units, Refills 12, Tot. Refills 12, Maintenance, BIPAP supplies: Mask, tubing, filters, headgear, chin strap, water chamber 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) Lengthof need 99 months Please fax to [facility], [phone],... Start Date: 06/30/17 Status: Ordered CPAP Equipment See Instructions, # 1 each, Refills 12, Tot. Refills 12, Maintenance, BiPAP supplies: Mask, tubing,filters, headgear, chin strap, heated water chamber Dx: ELSA G47.33 Length of need 99 months Please fax to [facility] fax # [phone], 07/02/20 14:50:0... Start Date: 07/02/20 Status: Ordered [...] Gm, 11 Refills, Maintenance, 02/18/20 9:43:00 EDT, [facility]/pharmacy #0957,1 sprays Nasal Daily, 154.9, cm, 12/30/19 11:15:00 EDT, Height, 55.3, kg, 04/19/19 8:36:00 EST, DryWeight Start Date: 02/18/20 Status: Ordered Flovent HFA 220 mcg/inh inhalation aerosol See Instructions, TAKE 2 PUFFS BY MOUTH TWICE A DAY RINSE MOUTH AND THROAT AFTER EACH USE, # 12 Unknown, 11 Refills, Soft Stop, 02/18/20 9:42:00 EDT, [facility]/pharmacy #0957, 154.9, cm, 12/30/19 11:15:00 EDT, Height, 55.3, kg, 04/19/19 8:36:00 EST, Dry Weight Start Date: 02/18/20 Status: Ordered Inderal LA 80 mg oral capsule, extended release 80 mg, 1, capsule, By Mouth, Daily, # 30 capsule, Refills 3, Tot. Refills 3, Maintenance, 06/23/20 10:00:00 EST, Route to Pharmacy Electronically, [facility]/pharmacy #0957, To replace Topamax. Partial fillupon patient request if the prescription is for a... Start Date: 06/23/20 Status: Ordered lisinopril 10 mg oral tablet 10 mg, 1, tablet, By Mouth, Daily, # 30 tablet, Refills 11, Tot. Refills 11, Maintenance, 02/18/20 9:43:00 EDT, Route to Pharmacy Electronically, [facility]/pharmacy #0957, 154.9, cm, 12/30/19 11:15:00 EDT,Height, 55.3, [...] 04/20/20 13:51:00 EST, Route to Pharmacy Electronically, [id number], [facility]/pharmacy #0957, 154.9, cm, 12/30/19 11:15:00 EDT, Height,... Start Date: 04/20/20 Stop Date: 04/15/21 Status: Ordered Stiolto Respimat 60 ACT 2.5 mcg-2.5 mcg/inh inhalation aerosol 2 puffs, Inhalation, Every 24 hours, to replace tiotropium, # 4 Gm, 11 Refills, Maintenance, 02/18/20 9:43:00 EDT, Aerosol, [facility]/pharmacy #0957, 154.9, cm, 12/30/19 11:15:00 EDT, Height, [...] tablet, 11 Refills, Maintenance, 04/20/20 13:59:00 EST, [facility]/pharmacy #0957, 154.9, cm, 12/30/19 11:15:00 EDT, Height, 55.3, kg, 04/19/19 8:36:00 EST, Dry... Start Date: 04/20/20 Status: Ordered Problem List Condition Effective Dates Status Health Status Inform ant Age at leaving school - ged(Confirmed) Active ASCUS(Confirmed) Active 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 Sleep Report(Confirmed) 05/25/11 Active Hep C: Cleared without treatment(Confirmed) Active Clubbing(Confirmed) [facility]: [facility] Active Esophageal reflux (GERD)(Confirmed) [...]
--- OUTSIDE RECORDS SUMMARY | 2022-12-26 10:34 | XMS_ITS | Continuity of Care Document ---
Author Name Unknown Organization [facility] Address [address] [place] [address]- Care Team Providers Care Supervisor Of Guidance And Testing Name Role Phone Mavis Allen Primary Care Physician [place] [facility] [place] 12/02/22 [facility] [address] [place], [place] [address] Attending Physician: Angelina Mendoza Admitting Physician: Angelina Mendoza Referring Physician: AdmtrAngelina Allergies, Adverse Reactions, Alerts Substance Reaction Severity Status Zoloft O/E - Parkinsonian tremor Ac tive Rubber Active Other Environmental Allergy 1 Active 1ELASTIC Immunizations Given and Recorded Vaccine Date Status Refusal Reason [id number] 12y+ bivalent booster vax 05/11/22 Recorded influenza [...] vaccine, inactivated 04/23/08 Give n SARS-CoV-2 mRNA (oynjnfa-fapr-ovgni) vax 12/14/21 Given SARS-CoV-2 mRNA (tukpkwz-llyd-yrfvw) vax 09/14/21 Given SARS-CoV-2 (COVID-19) mRNA BNT-162b2 [...] 1 Refills, Maintenance, 11/18/22 15:43:00 EDT, Tablet, [facility]/pharmacy #0957, Partial fill upon patient request if the prescription is for a schedule II opioid drug., 154.94, cm, 11/18/22 15:19:00 EDT, H... Start Date: 11/18/22 Status: Ordered calcium-vitamin D 600 mg-400 intl units oral tablet 1 tablet, By Mouth, 2 times a day with meals, # 180 tablet, 0 Refills, Maintenance, 11/17/22 12:06:00 EDT, [facility], 90, TAKE 1 TABLET BY MOUTH TWICE [...] Refills, Maintenance, 11/18/22 16:36:00 EDT, DIS Tablet, [facility]/pharmacy #0957, Partial fill upon patient [...] EACH USE., # 12 each, 11 Refills, [facility], 154.8, cm, 09/14/21 9:50:00 EDT, Height, 56, kg, 12/09/20 9:16:00 EDT, Dry Weight Start Date: 11/17/21 Status: Ordered fluticasone 50 mcg/inh nasal spray See Instructions, USE 1 SPRAY IN EACH NOSTRIL DAILY, # 48 mL, 11 Refills, [facility], 90, USE 1 SPRAY IN EACH NOSTRIL DAILY, 154.8, cm, 09/14/21 9:50:00 EDT, Height, 56, kg, 12/09/20 9:16:00 EDT, Dry Weight Start Date: 11/15/21 Status: Ordered lisinopril 10 mg oral tablet 1, tablet, By Mouth, Daily, # 90 tablet, Refills 3, Route to Pharmacy Electronically, [facility], 154.8, cm, 09/14/21 9:50:00 EDT, Height, 56, kg, 12/09/20 9:16:00 EDT, Dry Weight Start Date: 12/07/21 Status: Ordered melatonin 3 mg oral tablet 2 tablet = 6 mg, By Mouth, Daily at bedtime, PRN Insomnia, # 60 tablet, 2 Refills, Maintenance, 08/04/22 12:21:00 EDT, [facility]/pharmacy #0957, Partial fill upon patient [...] 0 Refills, Maintenance, 08/01/22 14:52:00 EDT, ECCapsule, [facility]/pharmacy #0957, Partial fill upon patient [...] Confirmed Active Papule of skin Confirmed Active *[id number] Varnish Filterer Sandra Rob Confirmed Active Pelvic mass Confirmed [...] Team Personnel Name: Joyce Brice RN Position: [facility] Supv Member Role: Primary Care Nurse Name: Ryan Wilson RN Position: S RN Member Role: Primary Care Nurse Name: Mavis Allen Position: [facility] Associate Professional Member Role: PCP Address: Address: [address] [place] [address]- [place] Name: Allyn Rhoades Position: S RN Member Role: Primary Care Nurse Name: Saumya Brown RN Position: S RN Member Role: Primary Care Nurse Name: Praveen Sepulveda RN Position: S RN Member Role: Primary Care Nurse Name: Marina Dumont RN Position: S RN Member Role: Primary Care Nurse Name: Delmi Kelly RN Position: [facility] RN Member Role: Primary Care Nurse Care Team Related Persons Name: JOSELIN SCHMIDT Address: home [address] [place] [address] Name: ALYSE HAUSER Address: home [address] [place] [address] Name: NO, ONE AT THIS TIME
--- OUTSIDE RECORDS SUMMARY | 2022-12-26 10:34 | XMS_ITS | Continuity of Care Document ---
Author Name Unknown Organization [facility] Address [address] [place] [address]- Care Team Providers Care Credit Officer Name Role Phone Divina MARINELLI, Adalberto Reeder Primary Care Physician [facility]counter [facility] Date(s): 09/30/20 - 10/30/[address] [address]- Allergies, Adverse Reactions, Alerts Substance Reaction Severity [...] 4 08/23/10 Given Tet/Diphth/Acel, Pertussis (oldterm) 5 10/15/12 Gi precious pneumococcal 23-valent vaccine 6 02/16/11 [...] 17:04:00 EDT, Aerosol, Route to Pharmacy Electronically, [id number]... Start Date: 08/03/20 Status: Ordered BiPAP Machine [...] 56 tablet, 3 Refills, Acute, [facility], 154.9, cm, 06/11/20 9:48:00 EST, Height, 58, kg, 06/05/20 12:02:00 EST, Dry Weight Start Date: 08/03/20 Status: Ordered clonazePAM 1 mg oral tablet 1 tablet = 1 mg, By Mouth, 3 times a day, PRN Anxiety, Please dispense on/after 11/06/20, # 80 tablet, 0 Refills, Maintenance, 10/13/20 8:26:00 EDT, Tablet, [facility]/pharmacy #0957, 154.9, cm, 10/13/20 7:56:00 EDT, Height, 58, kg, 06/05/20 12:02:00 EST, Dry... Start Date: 10/13/20 Status: Ordered CPAP Equipment See Instructions, # 1 units, Refills 12, Tot. 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 Start Date: 06/30/17 Status: Ordered CPAP Equipment See Instructions, # 1 each, Refills 12, Tot. Refills 12, Maintenance, BiPAP supplies: Mask, tubing,filters, headgear, chin strap, heated water chamber Dx: ELSA G47.33 Length of need 99 months Please fax to [facility] fax # [phone], 07/02/20 14:50:0... Start Date: 07/02/20 Status: Ordered Eucerin Unscented topical lotion See Instructions, apply to skin daily, dispense 1 jar, # 1 each, 11 Refills, Maintenance, 09/25/19 16:37:00 EDT, [facility]/pharmacy #0957, apply to skin daily, [...] Gm, 11 Refills, Maintenance, 02/18/20 9:43:00 EDT, [facility]/pharmacy #0957,1 sprays Nasal Daily, 154.9, cm, 12/30/19 11:15:00 EDT, Height, 55.3, kg, 04/19/19 8:36:00 EST, DryWeight Start Date: 02/18/20 Status: Ordered Flovent HFA 220 mcg/inh inhalation aerosol See Instructions, TAKE 2 PUFFS BY MOUTH TWICE A DAY RINSE MOUTH AND THROAT AFTER EACH USE, # 12 Unknown, 11 Refills, Soft Stop, 02/18/20 9:42:00 EDT, [facility]/pharmacy #0957, 154.9, cm, 12/30/19 11:15:00 EDT, Height, 55.3, kg, 04/19/19 8:36:00 EST, Dry Weight Start Date: 02/18/20 Status: Ordered Inderal LA 80 mg oral capsule, extended release 80 mg, 1, capsule, By Mouth, Daily, # 30 capsule, Refills 3, Tot. Refills 3, Maintenance, 06/23/20 10:00:00 EST, Route to Pharmacy Electronically, [facility]/pharmacy #0957, To replace Topamax. Partial fillupon patient request if the prescription is for a... Start Date: 06/23/20 Status: Ordered lisinopril 10 mg oral tablet 10 mg, 1, tablet, By Mouth, Daily, # 90 tablet, Refills 3, Tot. Refills 3, Maintenance, 09/28/20 13:15:00 EDT, Route to Pharmacy Electronically, [facility]/pharmacy #0957, 154.9, cm, 09/22/20 10:26:00 EDT, Height, 58, kg, 06/05/20 12:02:00 EST, Dry Weight Start Date: 09/28/20 Stop Date: 09/23/21 Status: Ordered nicotine 2 mg oral transmucosal lozenge 1 lozenge = 2 mg, By Mouth, Every 2 hours, # 72 each, 11 Refills, Maintenance, 10/13/20 8:35:00 EDT, [facility]/pharmacy #0957, Partial fill upon patient [...] 04/20/20 13:51:00 EST, Route to Pharmacy Electronically, [id number], [facility]/pharmacy #0957, 154.9, cm, 12/30/19 11:15:00 EDT, Height,... Start Date: 04/20/20 Stop Date: 04/15/21 Status: Ordered Stiolto Respimat 60 ACT 2.5 mcg-2.5 mcg/inh inhalation aerosol 2 puffs, Inhalation, Every 24 hours, to replace tiotropium, # 4 Gm, 11 Refills, Maintenance, 02/18/20 9:43:00 EDT, Aerosol, [facility]/pharmacy #0957, 154.9, cm, 12/30/19 11:15:00 EDT, [...] Clubbing(Confirmed) Active Drug abuse: Suboxone via [facility](Confirmed) Active Esophageal reflux (GERD)(Confirmed) [...]
--- OUTSIDE RECORDS SUMMARY | 2022-12-26 10:34 | XMS_ITS | Continuity of Care Document ---
Author Name Unknown Organization [facility] Address [address] [place] [address]- Care Team Providers Care Inhalation Therapy Teacher Name Role Phone Mavis Allen Primary Care Physician [facility] Date[facility]s): 09/27/22 - 10/27/22 [facility] [address] [place] [address]- Allergies, Adverse Reactions, Alerts Substance Reaction Severity Status Zoloft O/E - Parkinsonian tremor Ac tive Rubber Active Other Environmental Allergy 1 Active 1ELASTIC Immunizations Given and Recorded Vaccine Date Status Refusal Reason [id number] 12y+ bivalent booster vax 05/11/22 Recorded influenza [...] vaccine, inactivated 04/23/08 Give n SARS-CoV-2 mRNA (mgzuqek-tfrz-snpxf) vax 12/14/21 Given SARS-CoV-2 mRNA (ceworto-qdfo-tdjsq) vax 09/14/21 Given SARS-CoV-2 (COVID-19) mRNA BNT-162b2 [...] tablet, 3 Refills, Maintenance, 05/26/22 19:48:00 EST, [facility], 154.8, cm, 05/25/22 13:21:00 EST, Height, 56, kg, 12/09/20 9:16:00 EDT, Dry Weight Start Date: 05/26/22 Status: Ordered calcium-vitamin D 600 mg-400 intl units oral tablet 1 tablet, By Mouth, 2 times a day with meals, # 180 tablet, 0 Refills, Maintenance, 07/21/22 6:46:00 EDT, [facility], 90, TAKE 1 TABLET BY MOUTH TWICE A DAY WITH FOOD, 154, cm, 06/22/22 15:01:00EST, Height, 56, kg, 12/09/20 9:16:00 EDT, Dry Weight Start Date: 07/21/22 Status: Ordered clonazePAM 0.125 mg oral tablet, disintegrating See Instructions, 1 tablet By Mouth Daily at bedtime., # 30 tablet, 0 Refills, Maintenance, 07/11/22 15:10:00 EST, [facility]/pharmacy #0957, Partial fill upon patient request if the prescription is for a schedule II opioid drug., 154, cm, 06/22/22 15:01:00... Start Date: 07/11/22 Status: Ordered Flovent HFA 220 mcg/inh inhalation aerosol 2 puffs, Inhalation, 2 times a day, AND THROAT AFTER EACH USE., # 12 each, 11 Refills, [facility], 154.8, cm, 09/14/21 9:50:00 EDT, Height, 56, kg, 12/09/20 9:16:00 EDT, Dry Weight Start Date: 11/17/21 Status: Ordered fluticasone 50 mcg/inh nasal spray See Instructions, USE 1 SPRAY IN EACH NOSTRIL DAILY, # 48 mL, 11 Refills, [facility], 90, USE 1 SPRAY IN EACH NOSTRIL DAILY, 154.8, cm, 09/14/21 9:50:00 EDT, Height, 56, kg, 12/09/20 9:16:00 EDT, Dry Weight Start Date: 11/15/21 Status: Ordered lisinopril 10 mg oral tablet 1, tablet, By Mouth, Daily, # 90 tablet, Refills 3, Route to Pharmacy Electronically, [facility], 154.8, cm, 09/14/21 9:50:00 EDT, Height, 56, kg, 12/09/20 9:16:00 EDT, Dry Weight Start Date: 12/07/21 Status: Ordered melatonin 3 mg oral tablet 2 tablet = 6 mg, By Mouth, Daily at bedtime, PRN Insomnia, # 60 tablet, 2 Refills, Maintenance, 08/04/22 12:21:00 EDT, [facility]/pharmacy #0957, Partial fill upon patient request if the prescription is fora schedule II opioid drug., 154, cm, 06/22/22 15:01... Start Date: 08/04/22 Status: Ordered Methadone = 70 mg, By Mouth, Daily, 0 Refills, Maintenance, 06/22/22 13:11:00 EST, Partial fill upon patient request if the prescription is for a schedule II opioid drug. Start Date: 06/22/22 Status: Ordered nicotine 2 mg oral transmucosal lozenge 1 lozenge = 2 mg, By Mouth, Every 2 hours, # 72 each, 11 Refills, Maintenance, 10/13/20 8:35:00 EDT, [facility]/pharmacy #0957, Partial fill upon patient request if the prescription is for a schedule II opioid drug., 1 lozenge By Mouth Every 2 hours, 154.9,... Start Date: 10/13/20 Status: Ordered omeprazole 20 mg oral enteric coated capsule 1 capsule = 20 mg, By Mouth, Daily, # 90 capsule, 0 Refills, Maintenance, 08/01/22 14:52:00 EDT, ECCapsule, [facility]/pharmacy #0957, Partial fill upon patient request [...] Refills, Maintenance, 07/21/22 6:46:00 EDT, [facility], 154, cm, 06/22/22 15:01:00 EST, Height, 56, [...] Clubbing Confirmed Active Drug abuse: Suboxone via [facility] Confirmed Active Esophageal reflux (GERD) Confirmed 1/2/13 Active JASON (generalized anxiety disorder) Confirmed Active HPV: Positive in 07/15; 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, negative in 10/16 Confirmed Active Hypertension Confirmed 08/23/10 Active Lung cancer Confirmed Active Lung nodules Confirmed Active Opioid use disorder Confirmed Active Osteoporosis Confirmed Active Pain in finger of right hand Confirmed Active Palpitations Confirmed Active *[id number] Geologist Sandra Rob Confirmed Active Pelvic mass Confirmed [...] Care Team Personnel Name: Mavis Allen Position: [facility] Associate Professional Member Role: PCP Address: Address: [address] [place] [address]. [address] [place] [address]- Care Team Related Persons Name: JOSELIN SCHMIDT Address: [address] [place] [address] Name: ALYSE HAUSER Address: home [address] [place] [id number] Name: NO, ONE AT THIS TIME
--- OUTSIDE RECORDS SUMMARY | 2022-12-26 10:34 | XMS_ITS | Continuity of Care Document ---
Author Name Unknown Organization [facility] Address [address] [place] [address]- Care Team Providers Care Hammerer Helper Name Role Phone Divina MARINELLI, Adalberto Reeder Primary Care Physician [facility]): [facility]/19/20 - 04/18/[address] [address]- Allergies, Adverse Reactions, Alerts Substance Reaction Severity [...] 1 Refills, Maintenance, 07/31/19 11:08:00 EDT, Tablet, [facility]/pharmacy #0957, 154.9, cm, 07/04/19 9:38:00 EST, [...] 11 Refills, Maintenance, 02/18/20 9:43:00 EDT, Tablet, [facility]/pharmacy #0957, 1 tablet By Mouth [...] 02/18/20 9:42:00 EDT, Route to Pharmacy Electronically, [facility]/pharmacy #0957, 154.9, cm, 12/30/19 11:15:00 EDT, Height, 55.3, kg, 04/19/19 8:36:00 EST, Dry Weight Start Date: 02/18/20 Status: Ordered cetirizine 10 mg oral tablet 1 tablet = 10 mg, By Mouth, Daily, PRN Other, PRN allergies, # 30 tablet, 11 Refills, Maintenance, 02/18/20 9:43:00 EDT, Tablet, [facility]/pharmacy #0957, 154.9, cm, 12/30/19 11:15:00 EDT, Height, 55.3, kg, 04/19/19 8:36:00 EST, Dry Weight Start Date: 02/18/20 Status: Ordered chantix 1mg tablet 1 tablet = 1 mg, By Mouth, 2 times a day, after meals, to begin after completing starter pack, # 1 pack/packet, 3 Refills, Maintenance, 02/18/20 9:41:00 EDT, Tablet, [facility]/pharmacy #0957, 154.9, cm, 12/30/19 11:15:00 EDT, Height, 55.3, kg, 04/19/19 8:36... Start Date: 02/18/20 Status: Ordered clonazePAM 1 mg oral tablet 1 tablet = 1 mg, By Mouth, 3 times a day, Please fax to [facility] on [address] [phone], # 90 tablet, 2 Refills, Maintenance, 09/17/18 12:46:43 EDT, Tablet Start Date: 09/17/18 Status: Ordered CPAP Equipment See Instructions, # 1 units, Refills 12, Tot. Refills 12, Maintenance, BiPAP supplies: Mask, tubing, filters, headgear, chin strap, heated water chamber Dx: ELSA G47.33 Length of need 99 months Pleasefax to [facility], [phone], 09/04/18 15:13:48 EDT, Co... Start Date: 09/04/18 Status: Ordered CPAP Equipment See Instructions, # 1 units, Refills 12, Tot. 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 Start Date: 06/30/17 Status: Ordered diphenhydrAMINE 25 [...] 11 Refills, Soft Stop, 02/18/20 9:42:00 EDT, [facility]/pharmacy #0957, 154.9, cm, 12/30/19 11:15:00 EDT, Height, 55.3, kg, 04/19/19 8:36:00 EST, Dry Weight Start Date: 02/18/20 Status: Ordered lisinopril 10 mg oral tablet 10 mg, 1, tablet, By Mouth, Daily, # 30 tablet, Refills 11, Tot. Refills 11, Maintenance, 02/18/20 9:43:00 EDT, [facility] 154.9, cm, 12/30/19 11:15:00 EDT,Height, 55.3, [...] Refills, Maintenance, 02/18/20 9:43:00 EDT, EC Capsule, [facility]/pharmacy #0957, 154.9, cm, 12/30/19 11:15:00 EDT, Height, 55.3, kg, 04/19/19 8:36:00 EST, Dry Weight Start Date: 02/18/20 Status: Ordered ProAir HFA 90 mcg/inh inhalation aerosol with adapter 2, puffs, Inhalation, 4 times a day, PRN, # 1 each, Refills 11, Tot. Refills 11, Maintenance, 02/18/20 9:43:00 EDT, Route to Pharmacy Electronically, [id number], [facility], 154.9, cm, 12/30/19 11:15:00 EDT, [...] mg QAM and 50 mg QPM, # 30 capsule, 0 Refills, Maintenance, 04/06/20 16:06:00 EST, Capsule, [facility], Partial fill upon patient request, 154.9, cm, 12/30/19 11:15... Start Date: 04/06/20 Status: Ordered Vitamin B2 100 mg oral [...] Clubbing(Confirmed) Active Drug [facility] Active Esophageal reflux [...]
--- OUTSIDE RECORDS SUMMARY | 2022-12-26 10:34 | XMS_ITS | Continuity of Care Document ---
Author Name Unknown Organization [facility] Address [address] [place] [address]- Care Team Providers Care Machine Stone Polisher Apprentice Name Role Phone Mavis Allen Primary Care Physician [facility]): 07/11/22 - 08/10/22 [facility] [address] [place] [address]- Allergies, Adverse Reactions, Alerts Substance Reaction Severity Status Zoloft O/E - Parkinsonian tremor Ac tive Rubber Active Other Environmental Allergy 1 Active 1ELASTIC Immunizations Given and Recorded Vaccine Date Status Refusal Reason [id number] 12y+ bivalent booster vax 05/11/22 Recorded influenza [...] vaccine, inactivated 04/23/08 Give n SARS-CoV-2 mRNA ([id number]) vax 12/14/21 Given SARS-CoV-2 mRNA ([id number]-wcou-agyom) vax 09/14/21 Given SARS-CoV-2 (COVID-19) mRNA BNT-162b2 [...] Refills, Maintenance, 05/26/22 19:48:00 EST, [facility], 154.8, cm, 05/25/22 13:21:00 EST, Height, 56, [...] tablet, 0 Refills, Maintenance, 07/21/22 6:46:00 EDT, [facility] STORE [facility]407, 90, TAKE 1 TABLET BY MOUTH TWICE [...] Refills, Maintenance, 07/11/22 15:10:00 EST, [facility]/pharmacy #0957, Partial fill upon patient request if the prescription is for a schedule II opioid drug., 154, cm, 06/22/22 15:01:00... Start Date: 07/11/22 Status: Ordered CPAP Equipment See Instructions, # 1 units, Refills 12, Tot. 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 Start Date: 06/30/17 Status: Ordered CPAP Equipment See Instructions, # 1 each, Refills 12, Tot. Refills 12, Maintenance, BiPAP supplies: Mask, tubing,filters, headgear, chin strap, heated water chamber Dx: ELSA G47.33 Length of need 99 months Please fax to [facility] fax # [phone], 07/02/20 14:50:0... Start Date: 07/02/20 Status: Ordered cyanocobalamin 500 mcg oral tablet 1 tablet = 500 mcg, By Mouth, Daily, on empty stomach, # 90 tablet, 3 Refills, Maintenance, 03/26/21 20:06:00 EST, Tablet, [facility]/pharmacy #0957, Partial fill upon patient request if the prescription isfor a schedule II opioid drug., 154.8, cm, 03/23/21... Start Date: 03/26/21 Status: Ordered Flovent HFA 220 mcg/inh inhalation aerosol 2 puffs, Inhalation, 2 times a day, AND THROAT AFTER EACH USE., # 12 each, 11 Refills, [facility] STORE 05347, 154.8, cm, 09/14/21 9:50:00 EDT, Height, 56, kg, 12/09/20 9:16:00 EDT, Dry Weight Start Date: 11/17/21 Status: Ordered fluticasone 50 mcg/inh nasal spray See Instructions, USE 1 SPRAY IN EACH NOSTRIL DAILY, # 48 mL, 11 Refills, [facility] STORE [facility]79, 90, USE 1 SPRAY IN EACH NOSTRIL [...] tablet, Refills 3, Route to Pharmacy Electronically, [facility] STORE 720[facility], 154.8, cm, 09/14/21 9:50:00 EDT, Height, 56, kg, 12/09/20 9:16:00 EDT, Dry Weight Start Date: 12/07/21 Status: Ordered melatonin 3 mg oral tablet 2 tablet = 6 mg, By Mouth, Daily at bedtime, PRN Insomnia, # 60 tablet, 2 Refills, Maintenance, 08/04/22 12:21:00 EDT, [facility]/pharmacy #0957, Partial fill upon patient request if [...] Refills, Maintenance, 10/13/20 8:35:00 EDT, [facility]/pharmacy #0957, Partial fill upon patient request if the prescription is for a schedule II opioid drug., 1 lozenge By Mouth Every 2 hours, 154.9,... Start Date: 10/13/20 Status: Ordered Nutritional Supplements See Instructions, # 90 each, Refills 3, Tot. Refills 3, Maintenance, [place] Ensure 1 can TID. Dx: C34.90, R63.4, 03/29/21 15:29:00 EST, Supply Start Date: 03/29/21 Status: Ordered omeprazole 20 mg oral enteric coated capsule 1 capsule = 20 mg, By Mouth, Daily, # 90 capsule, 0 Refills, Maintenance, 08/01/22 14:52:00 EDT, ECCapsule, [facility]/pharmacy #0957, Partial fill upon patient request if [...] Refills, Maintenance, 07/21/22 6:46:00 EDT, [facility], 154, cm, 06/22/22 15:01:00 EST, Height, 56, [...] Clubbing Confirmed Active Drug abuse: Suboxone via [facility] Confirmed Active Esophageal reflux (GERD) Confirmed 05/09/12 Active JASON (generalized anxiety disorder) Confirmed Active HPV: Positive in 07/15; 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, negative in 10/16 Confirmed Active Hypertension Confirmed 08/23/10 Active Lung cancer Confirmed Active Lung nodules Confirmed Active Opioid use disorder Confirmed Active Osteoporosis Confirmed Active Pain in finger of right hand Confirmed Active Palpitations Confirmed Active *[id number] paige Escamilla Confirmed Active Pelvic mass Confirmed [...] Care Team Personnel Name: Mavis Allen Position: [facility] PCO Associate Professional Member Role: PCP Address: Address: [address] [place] [address]- Care Team Related Persons Name: ROXANAJOSELIN Address: home [address] [place] [address] Name: ALYSE HAUSER Address: home [address] [place] [id number] Name: NO, ONE AT THIS TIME
--- OUTSIDE RECORDS SUMMARY | 2022-12-26 10:34 | XMS_ITS | Continuity of Care Document ---
Author Name Unknown Organization [facility] Address [address] [place] [address] [address], [address] [place] [address]- Care Team Providers Care Tax Services Professional Name Role Phone Divina MARINELLI, Adalberto Reeder Primary Care Physician [facility] 05/19/20 - 06/18/20 [facility] [address] [place] [address], [address] [place], [place] [address] Allergies, Adverse Reactions, Alerts Substance Reaction Severity [...] tablet = 0.5 mg, By Mouth, Once, phlebotomist to procedure. May repeat X 1, # [...] Refills, Maintenance, 02/18/20 9:41:00 EDT, Tablet, [facility]/pharmacy #0957, 154.9, cm, 12/30/19 11:15:00 EDT, Height, 55.3, kg, 04/19/19 8:36... Start Date: 02/18/20 Status: Ordered clonazePAM 1 mg oral tablet 1 tablet = 1 mg, By Mouth, 3 times a day, Please fax to [facility] on [address] [phone], # 90 tablet, 2 Refills, Maintenance, 09/17/18 12:46:43 EDT, Tablet Start Date: 09/17/18 Status: Ordered CPAP Equipment See Instructions, # 1 units, Refills 12, Tot. Refills 12, Maintenance, BiPAP supplies: Mask, tubing, filters, headgear, chin strap, heated water chamber Dx: ELSA G47.33 Length of need 99 months Pleasefax to [facility], [phone], 09/04/18 15:13:48 EDT, Co... Start Date: 09/04/18 Status: Ordered CPAP Equipment See Instructions, # 1 units, Refills 12, Tot. 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 Start Date: 06/30/17 Status: Ordered Eucerin Unscented topical lotion See Instructions, apply to skin daily, dispense 1 jar, # 1 each, 11 Refills, Maintenance, 09/25/19 16:37:00 EDT, [facility]/pharmacy #0957, apply to skin daily, dispense 1 [...] 11 Refills, Maintenance, 02/18/20 9:43:00 EDT, [facility]/pharmacy #0957,1 sprays Nasal Daily, 154.9, cm, 12/30/19 11:15:00 EDT, Height, 55.3, kg, 04/19/19 8:36:00 EST, DryWeight Start Date: 02/18/20 Status: Ordered Flovent HFA 220 mcg/inh inhalation aerosol See Instructions, TAKE 2 PUFFS BY MOUTH TWICE A DAY RINSE MOUTH AND THROAT AFTER EACH USE, # 12 Unknown, 11 Refills, Soft Stop, 02/18/20 9:42:00 EDT, [facility]/pharmacy #0957, 154.9, cm, 12/30/19 11:15:00 EDT, Height, 55.3, kg, 04/19/19 8:36:00 EST, Dry Weight Start Date: 02/18/20 Status: Ordered lisinopril 10 mg oral tablet 10 mg, 1, tablet, By Mouth, Daily, # 30 tablet, Refills 11, Tot. Refills 11, Maintenance, 02/18/20 9:43:00 EDT, Route to Pharmacy Electronically, [facility]/pharmacy #0957, 154.9, cm, 12/30/19 11:15:00 EDT,Height, 55.3, [...] 07/06/20 23:00:00 EST, 06/06/20 19:18:00 EST, Tablet, [facility]/pharmacy #0957, Partial fill upon patient request if the prescription is for a schedule II opioid d... Start Date: 06/06/20 Stop Date: 07/06/20 Status: Ordered ProAir HFA 90 mcg/inh inhalation aerosol with adapter 2, puffs, Inhalation, 4 times a day, PRN, # 1 each, Refills 11, Tot. Refills 11, Maintenance, 04/20/20 13:51:00 EST, Route to Pharmacy Electronically, [id number], [facility]/pharmacy #0957, 154.9, cm, 12/30/19 11:15:00 EDT, Height,... Start Date: 04/20/20 Stop Date: 04/15/21 Status: Ordered Stiolto Respimat 60 ACT 2.5 mcg-2.5 mcg/inh inhalation aerosol 2 puffs, Inhalation, Every 24 hours, to replace tiotropium, # 4 Gm, 11 Refills, Maintenance, 02/18/20 9:43:00 EDT, Aerosol, [facility]/pharmacy #0957, 154.9, cm, 12/30/19 11:15:00 EDT, Height, [...] 3 Refills, Maintenance, 03/16/20 16:51:00 EST, Tablet, [facility]/pharmacy #0957, 154.9, cm, 12/30/19 11:15:00 EDT, Height, [...] Clubbing(Confirmed) [facility]: [facility] Active Esophageal reflux (GERD)(Confirmed) 05/09/12 [...]
--- OUTSIDE RECORDS SUMMARY | 2022-12-26 10:34 | XMS_ITS | Continuity of Care Document ---
Author Name Unknown Organization [facility] Address [address] [place] [address]- Care Team Providers Care Supervisor Reclamation Name Role Phone Divina MARINELLI, Adalberto Reeder Primary Care Physician [facility] Date[facility]): 04/09/21 - 05/09/[address] [address]- Allergies, Adverse Reactions, Alerts Substance Reaction Severity [...] 17:04:00 EDT, Aerosol, Route to Pharmacy Electronically, [id number]... Start Date: 08/03/20 Status: Ordered BiPAP Machine [...] 11 Refills, Maintenance, 11/05/20 17:11:00 EDT, Tablet, [facility]/pharmacy #0957, 1 tablet By Mouth 2 [...] 56 tablet, 3 Refills, Acute, [facility], 154.9, cm, 06/11/20 9:48:00 EST, Height, 58, kg, 06/05/20 12:02:00 EST, Dry Weight Start Date: 08/03/20 Status: Ordered clonazePAM 1 mg oral tablet 1 tablet = 1 mg, By Mouth, 2 times a day, PRN Anxiety, Please dispense on/after 05/08/21, # 60 tablet, 0 Refills, Maintenance, 04/20/21 13:33:00 EST, Tablet, [facility]/pharmacy #0957, 154.8, cm, 04/20/21 13:17:00 EST, Height, 56, kg, 12/09/20 9:16:00 EDT, Dry... Start Date: 04/20/21 Status: Ordered CPAP Equipment See Instructions, # 1 units, Refills 12, Tot. 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 Start Date: 06/30/17 Status: Ordered CPAP Equipment See Instructions, # 1 each, Refills 12, Tot. Refills 12, Maintenance, BiPAP supplies: Mask, tubing,filters, headgear, chin strap, heated water chamber Dx: ELSA G47.33 Length of need 99 months Please fax to [facility] # [phone], 07/02/20 14:50:0... Start Date: 07/02/20 Status: Ordered [...] 06/23/20 10:00:00 EST, Route to Pharmacy Electronically, [facility]/pharmacy #0957, To replace Topamax. Partial fillupon patient request if the prescription is for a... Start Date: 06/23/20 Status: Ordered lisinopril 10 mg oral tablet 10 mg, 1, tablet, By Mouth, Daily, # 90 tablet, Refills 3, Tot. Refills 3, Maintenance, 09/28/20 13:15:00 EDT, Route to Pharmacy Electronically, [facility]/pharmacy #0957, 154.9, cm, 09/22/20 10:26:00 EDT, Height, 58, kg, 06/05/20 12:02:00 EST, Dry Weight Start Date: 09/28/20 Stop Date: 09/23/21 Status: Ordered melatonin 3 mg oral tablet 1 tablet = 3 mg, By Mouth, Daily at bedtime, PRN Insomnia, # 60 tablet, 11 Refills, Maintenance, 03/29/21 21:06:00 EST, [facility]/pharmacy #0957, Partial fill upon patient request if the prescription is for a schedule II opioid drug., 154.8, cm, 03/23/21 11... Start Date: 03/29/21 Status: Ordered nicotine 2 mg oral transmucosal lozenge 1 lozenge = 2 mg, By Mouth, Every 2 hours, # 72 each, 11 Refills, Maintenance, 10/13/20 8:35:00 EDT, [facility]/pharmacy #0957, Partial fill upon patient request [...] each, Refills 3, Tot. Refills 3, Maintenance, [place] Ensure 1 can TID. Dx: C34.90, R63.4, [...]
--- OUTSIDE RECORDS SUMMARY | 2022-12-26 10:34 | XMS_ITS | Continuity of Care Document ---
Author Name Unknown Organization [facility] Address [address] [place] [address]- Care Team Providers Care Torsion Spring Coiling Machine Setter Name Role Phone Divina MARINELLI, Adalberto Reeder Primary Care Physician [facility]): 06/24/21 - 07/24/[address] [address]- Allergies, Adverse Reactions, Alerts Substance Reaction Severity [...] 17:04:00 EDT, Aerosol, Route to Pharmacy Electronically, [id number]... Start Date: 08/03/20 Status: Ordered BiPAP Machine [...] 11 Refills, Maintenance, 11/05/20 17:11:00 EDT, Tablet, [facility]/pharmacy #0957, 1 tablet By Mouth 2 [...] 56 tablet, 3 Refills, Acute, [facility], 154.9, cm, 06/11/20 9:48:00 EST, Height, 58, kg, 06/05/20 12:02:00 EST, Dry Weight Start Date: 08/03/20 Status: Ordered clonazePAM 0.5 mg oral tablet See Instructions, 1 tablet By Mouth 2 times a day. [place] Pat Reviewed. Please fill on/after 07/07/21, # 60 tablet, 0 Refills, Maintenance, 06/29/21 9:32:00 EST, [facility]/pharmacy #0957, Partial fill upon patient request if the prescription is for a schedule I... Start Date: 06/29/21 Status: Ordered CPAP Equipment See Instructions, # 1 units, Refills 12, Tot. 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 Start Date: 06/30/17 Status: Ordered CPAP Equipment See Instructions, # 1 each, Refills 12, Tot. Refills 12, Maintenance, BiPAP supplies: Mask, tubing,filters, headgear, chin strap, heated water chamber Dx: ELSA G47.33 Length of need 99 months Please fax to [facility] fax # [phone], 07/02/20 14:50:0... Start Date: 07/02/20 Status: Ordered cyanocobalamin 500 mcg oral tablet 1 tablet = 500 mcg, By Mouth, Daily, on empty stomach, # 90 tablet, 3 Refills, Maintenance, 03/26/21 20:06:00 EST, Tablet, [facility]/pharmacy #0957, Partial fill upon patient request [...] 06/23/20 10:00:00 EST, Route to Pharmacy Electronically, [facility]/pharmacy #0957, To replace Topamax. Partial fillupon patient request if the prescription is for a... Start Date: 06/23/20 Status: Ordered lisinopril 10 mg oral tablet 10 mg, 1, tablet, By Mouth, Daily, # 90 tablet, Refills 3, Tot. Refills 3, Maintenance, 09/28/20 13:15:00 EDT, Route to Pharmacy Electronically, [facility]/pharmacy #0957, 154.9, cm, 09/22/20 10:26:00 EDT, Height, 58, kg, 06/05/20 12:02:00 EST, Dry Weight Start Date: 09/28/20 Stop Date: 09/23/21 Status: Ordered melatonin 3 mg oral tablet 1 tablet = 3 mg, By Mouth, Daily at bedtime, PRN Insomnia, # 60 tablet, 11 Refills, Maintenance, 03/29/21 21:06:00 EST, [facility]/pharmacy #0957, Partial fill upon patient request if the prescription is for a schedule II opioid drug., 154.8, cm, 03/23/21 11... Start Date: 03/29/21 Status: Ordered nicotine 2 mg oral transmucosal lozenge 1 lozenge = 2 mg, By Mouth, Every 2 hours, # 72 each, 11 Refills, Maintenance, 10/13/20 8:35:00 EDT, [facility]/pharmacy #0957, Partial fill upon patient request [...] each, Refills 3, Tot. Refills 3, Maintenance, [place] Ensure 1 can TID. Dx: C34.90, R63.4, 03/29/21 15:29:00 EST, Supply Start Date: 03/29/21 Status: Ordered omeprazole 20 mg oral enteric coated capsule 1 capsule = 20 mg, By Mouth, Daily, # 90 capsule, 3 Refills, Maintenance, 07/08/21 15:23:00 EST, ECCapsule, [facility]/pharmacy #0957, Partial fill upon patient request if the prescription is for a schedule II opioid drug., 154.8, cm, 06/29/21 9:00:00 EST,... Start Date: 07/08/21 Status: Ordered Stiolto Respimat 60 ACT 2.5 mcg-2.5 mcg/inh inhalation aerosol 2 puffs, Inhalation, Every 24 hours, to replace tiotropium, # 4 Gm, 11 Refills, Maintenance, 11/05/20 17:11:00 EDT, Aerosol, [facility]/pharmacy #0957, 154.9, cm, 10/13/20 7:56:00 EDT, [...] Active Clubbing(Confirmed) Active Drug abuse: Suboxone via [facility](Confirmed) Active Esophageal reflux (GERD)(Confirmed) 05/09/12 [...]
--- OUTSIDE RECORDS SUMMARY | 2022-12-26 10:34 | XMS_ITS | Continuity of Care Document ---
Author Name Unknown Organization [facility] Address [address] [place] [address]- Care Team Providers Care Technical Sourcing Recruiter Name Role Phone Divina MARINELLI, Adalberto Reeder Primary Care Physician Encounter [facility] Date(s): 12/14/21 - 01/13/[address] [address]- Allergies, Adverse Reactions, Alerts Substance Reaction Severity Status Zoloft O/E - Parkinsonian tremor Ac tive Rubber Active Other Environmental Allergy 1 Active 1ELASTIC Immunizations Given and Recorded Vaccine Date Status Refusal Reason SARS-CoV-2 mRNA (kfmsaum-fjns-ilzzp) vax 12/14/21 Given SARS-CoV-2 mRNA (nmjuafb-lrtl-lzcpl) vax 09/14/21 Given SARS-CoV-2 (COVID-19) mRNA BNT-162b2 [...] tablet, 3 Refills, Maintenance, 09/14/21 10:11:00 EDT,Tablet, [facility]/pharmacy #0985, Partial fill upon patient request if the [...] # 180 tablet, 1 Refills, [facility], 90, TAKE 1 TABLET BY MOUTH TWICE [...] PhysicianStop 04/15/22 8:28:00 EST, 12/14/21 8:27:00 EDT, [facility]/pharmacy #0957, 154.8, cm, 09/14/21 9:50:00 EDT, Height, 56, kg, 12/09/20 9:16:00 EDT, Dry Weight Start Date: 12/14/21 Stop Date: 04/15/22 Status: Ordered clonazePAM 0.25 mg oral tablet, disintegrating See Instructions, 1 tablet By Mouth 2 times a day, may take one more at bedtime as needed. [place] PatReviewed. Please fill on/after 12/06/21, # 62 tablet, 1 Refills, Maintenance, 11/26/21 15:32:00 EDT, [facility]/pharmacy #0957, Partial fill upon patient reque... Start Date: 11/26/21 Status: Ordered CPAP Equipment See Instructions, # 1 units, Refills 12, Tot. 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 Start Date: 06/30/17 Status: Ordered CPAP Equipment See Instructions, # 1 each, Refills 12, Tot. Refills 12, Maintenance, BiPAP supplies: Mask, tubing,filters, headgear, chin strap, heated water chamber Dx: ELSA G47.33 Length of need 99 months Please fax to [facility] fax # [phone], 07/02/20 14:50:0... Start Date: 07/02/20 Status: Ordered cyanocobalamin 500 mcg oral tablet 1 tablet = 500 mcg, By Mouth, Daily, on empty stomach, # 90 tablet, 3 Refills, Maintenance, 03/26/21 20:06:00 EST, Tablet, [facility]/pharmacy #0957, Partial fill upon patient request if the prescription isfor a schedule II opioid drug., 154.8, cm, 03/23/21... Start Date: 03/26/21 Status: Ordered Eucerin Unscented topical lotion See Instructions, apply to skin daily, dispense 1 jar, # 1 each, 11 Refills, Maintenance, 09/25/19 16:37:00 EDT, [facility]/pharmacy #0957, apply to skin daily, dispense [...] EACH USE., # 12 each, 11 Refills, [facility], 154.8, cm, 09/14/21 9:50:00 EDT, Height, 56, kg, 12/09/20 9:16:00 EDT, Dry Weight Start Date: 11/17/21 Status: Ordered fluticasone 50 mcg/inh nasal spray See Instructions, USE 1 SPRAY IN EACH NOSTRIL DAILY, # 48 mL, 11 Refills, [facility], 90, USE 1 SPRAY IN EACH NOSTRIL DAILY, 154.8, cm, 09/14/21 9:50:00 EDT, Height, 56, kg, 12/09/20 9:16:00 EDT, Dry Weight Start Date: 11/15/21 Status: Ordered Inderal LA 80 mg oral capsule, extended release 80 mg, 1, capsule, By Mouth, Daily, # 30 capsule, Refills 3, Tot. Refills 3, Maintenance, 06/23/20 10:00:00 EST, Route to Pharmacy Electronically, [facility]/pharmacy #0957, To replace Topamax. Partial fillupon patient request if the prescription is for a... Start Date: 06/23/20 Status: Ordered lisinopril 10 mg oral tablet 1, tablet, By Mouth, Daily, # 90 tablet, Refills 3, Route to Pharmacy Electronically, [facility], 154.8, cm, 09/14/21 9:50:00 EDT, Height, 56, kg, 12/09/20 9:16:00 EDT, Dry Weight Start Date: 12/07/21 Status: Ordered melatonin 3 mg oral tablet 1 tablet = 3 mg, By Mouth, Daily at bedtime, PRN Insomnia, # 60 tablet, 11 Refills, Maintenance, 03/29/21 21:06:00 EST, [facility]/pharmacy #0957, Partial fill upon [...] each, Refills 3, Tot. Refills 3, Maintenance, [place] Ensure 1 can TID. Dx: C34.90, R63.4, 03/29/21 15:29:00 EST, Supply Start Date: 03/29/21 Status: Ordered omeprazole 20 mg oral enteric coated capsule 1 capsule = 20 mg, By Mouth, Daily, # 90 capsule, 3 Refills, Maintenance, 07/08/21 15:23:00 EST, ECCapsule, [facility]/pharmacy #0957, Partial fill upon patient request if the prescription is for a schedule II opioid drug., 154.8, cm, 06/29/21 9:00:00 EST,... Start Date: 07/08/21 Status: Ordered Stiolto Respimat 60 ACT 2.5 mcg-2.5 mcg/inh inhalation aerosol 2 puffs, Inhalation, Every 24 hours, TO REPLACE TIOTROPIUM., # 4 mL, 11 Refills, [facility], 154.8, cm, 09/14/21 9:50:00 EDT, Height, 56, kg, 12/09/20 9:16:00 EDT, Dry Weight Start Date: 11/17/21 Status: Ordered Ventolin HFA 108 mcg/inh inhalation aerosol with adapter 2 puffs, Inhalation, 4 times a day, PRN NEEDED FOR WHEEZING, # 18 each, 5 Refills, [facility], 154.8, cm, 09/14/21 9:50:00 EDT, Height, 56, kg, 12/09/20 9:16:00 EDT, Dry Weight Start Date: 11/28/21 Status: Ordered Problem List Condition Effective Dates Status Health Status Inform ant Age at leaving school - ged(Confirmed) Active ASCUS(Confirmed) Active 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 Sleep Report(Confirmed) 05/25/11 Active Hep C: Cleared without treatment(Confirmed) Active Clubbing(Confirmed) Active Drug abuse: Suboxone via [facility](Confirmed) Active Esophageal reflux (GERD)(Confirmed) 05/09/12 Active [...] 7 cigarettes daily Care Team Personnel Name: Adalberto Murcia MD Address: [address] [place] [address]-
--- OUTSIDE RECORDS SUMMARY | 2022-12-26 10:34 | XMS_ITS | Continuity of Care Document ---
Author Name Unknown Organization [facility] Address [address] [place] [address]- Care Team Providers Care Director Television News Name Role Phone Adalberto Murcia MD Primary Care Physician [place] [facility]17[place] - 09/16/21 [facility] [address] [place] [address]- Allergies, Adverse Reactions, Alerts Substance Reaction Severity Status Zoloft O/E - Parkinsonian tremor Ac tive Rubber Active Other Environmental Allergy 1 Active 1ELASTIC Immunizations Given and Recorded Vaccine Date Status Refusal Reason SARS-CoV-2 mRNA (ibmsrti-sywy-tphnq) vax 09/14/21 Given SARS-CoV-2 (COVID-19) mRNA BNT-162b2 [...] 17:04:00 EDT, Aerosol, Route to Pharmacy Electronically, [id number]... Start Date: 08/03/20 Status: Ordered alendronate 70 mg oral tablet 1 tablet = 70 mg, By Mouth, Every week, # 12 tablet, 3 Refills, Maintenance, 09/14/21 10:11:00 EDT,[facility]t, [facility], Partial fill upon patient request if the [...] 11 Refills, Maintenance, 11/05/20 17:11:00 EDT, Tablet, [facility]/pharmacy #0957, 1 tablet By Mouth [...] 56 tablet, 3 Refills, Acute, [facility], 154.9, cm, 06/11/20 9:48:00 EST, Height, 58, [...] months Please fax to [facility], [phone],... Start Date: 06/30/17 Status: Ordered CPAP Equipment See Instructions, # 1 each, Refills 12, Tot. Refills 12, Maintenance, BiPAP supplies: Mask, tubing,filters, headgear, chin strap, heated water chamber Dx: ELSA G47.33 Length of need 99 months Please fax to [facility] fax # [phone], 07/02/20 14:50:0... Start Date: 07/02/20 Status: Ordered [...] 11 Refills, Soft Stop, 11/05/20 17:11:00 EDT, [facility]/pharmacy #0957, 154.9, cm, 10/13/20 7:56:00 EDT, Height, 58, kg, 06/05/20 12:02:00 EST, Dry Weight Start Date: 11/05/20 Status: Ordered Inderal LA 80 mg oral capsule, extended release 80 mg, 1, capsule, By Mouth, Daily, # 30 capsule, Refills 3, Tot. Refills 3, Maintenance, 06/23/20 10:00:00 EST, Route to Pharmacy Electronically, [facility]/pharmacy #0957, To replace Topamax. Partial fillupon patient request if the prescription is for a... Start Date: 06/23/20 Status: Ordered lisinopril 10 mg oral tablet 10 mg, 1, tablet, By Mouth, Daily, # 90 tablet, Refills 3, Tot. Refills 3, Maintenance, 09/28/20 13:15:00 EDT, Route to Pharmacy Electronically, [facility]/pharmacy #0957, 154.9, cm, 09/22/20 10:26:00 [...] each, Refills 3, Tot. Refills 3, Maintenance, [place] Ensure 1 can TID. Dx: C34.90, R63.4, 03/29/21 15:29:00 EST, Supply Start Date: 03/29/21 Status: Ordered omeprazole 20 mg oral enteric coated capsule 1 capsule = 20 mg, By Mouth, Daily, # 90 capsule, 3 Refills, Maintenance, 07/08/21 15:23:00 EST, ECCapsule, [facility]/pharmacy #0957, Partial fill upon patient request if the prescription is for a schedule II opioid drug., 154.8, cm, 06/29/21 9:00:00 EST,... Start Date: 07/08/21 Status: Ordered Stiolto Respimat 60 ACT 2.5 mcg-2.5 mcg/inh inhalation aerosol 2 puffs, Inhalation, Every 24 hours, to replace tiotropium, # 4 Gm, 11 Refills, Maintenance, 11/05/20 17:11:00 EDT, Aerosol, [facility]/pharmacy #0957, 154.9, cm, 10/13/20 7:56:00 EDT, Height, 58, kg, 06/05/20 12:02:00 EST, Dry Weight Start Date: 11/05/20 Status: Ordered Ventolin HFA 108 mcg/inh inhalation aerosol with adapter 2 puffs, Inhalation, 4 times a day, PRN for wheezing, # 18 Gm, 11 Refills, Maintenance, 11/12/20 9:46:00 EDT, Aerosol, [facility]/pharmacy #0957, Partial fill upon [...] Clubbing(Confirmed) [facility]: [facility] Active Esophageal reflux (GERD)(Confirmed) 05/09/12 [...]
--- OUTSIDE RECORDS SUMMARY | 2022-12-26 10:34 | XMS_ITS | Continuity of Care Document ---
Author Name Unknown Organization [facility] Address [address] [place] [address]- Care Team Providers Care Web Retailer Name Role Phone Gideon Nice PRINCIPAL SYSTEMS ENGINEER, Jennyfer Primary Care Physician Encounter [facility] Date(s): 04/13/22 - 05/13/[address] [address]- Allergies, Adverse Reactions, Alerts Substance Reaction Severity [...] vaccine, inactivated 04/23/08 Give n SARS-CoV-2 mRNA (qpxqomy-ogkq-rujtq) vax 12/14/21 Given SARS-CoV-2 mRNA (umepldb-gzqs-pldkm) vax 09/14/21 Given SARS-CoV-2 (COVID-19) mRNA BNT-162b2 [...] 3 Refills, Maintenance, 09/14/21 10:11:00 EDT,Tablet, [facility], Partial fill upon patient request if the [...] with meals, # 180 tablet, 1 Refills, [facility], 90, TAKE 1 TABLET BY MOUTH TWICE A DAY WITH FOOD, 154.8, cm, 09/14/21 9:50:00 EDT, Height, 56, kg, 12/09/20 9:16:00 EDT, Dry Weight Start Date: 11/25/21 Status: Ordered Cane See Instructions, # 1 units, Maintenance, as directed for back pain, 09/04/18 15:08:30 EDT Start Date: 09/04/18 Status: Ordered clonazePAM 0.25 mg oral tablet, disintegrating See Instructions, 1 tablet By Mouth 2 times a day as needed. Mass Pat Reviewed., # 40 tablet, 0 Refills, Maintenance, 05/12/22 8:22:00 EST, [facility]/pharmacy #0926, Partial fill upon patient request if the prescription is for a schedule II opioid drug., 1... Start Date: 05/12/22 Status: Ordered CPAP Equipment See Instructions, # 1 units, Refills 12, Tot. 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 Start Date: 06/30/17 Status: Ordered CPAP Equipment See Instructions, # 1 each, Refills 12, Tot. Refills 12, Maintenance, BiPAP supplies: Mask, tubing,filters, headgear, chin strap, heated water chamber Dx: ELSA G47.33 Length of need 99 months Please fax to [facility] fax # [phone], 07/02/20 14:50:0... Start Date: 07/02/20 Status: Ordered cyanocobalamin 500 mcg oral tablet 1 tablet = 500 mcg, By Mouth, Daily, on empty stomach, # 90 tablet, 3 Refills, Maintenance, 03/26/21 20:06:00 EST, Tablet, [facility]/pharmacy #0957, Partial fill upon patient request if [...] EACH USE., # 12 each, 11 Refills, [facility], 154.8, cm, 09/14/21 9:50:00 EDT, Height, 56, kg, 12/09/20 9:16:00 EDT, Dry Weight Start Date: 11/17/21 Status: Ordered fluticasone 50 mcg/inh nasal spray See Instructions, USE 1 SPRAY IN EACH NOSTRIL DAILY, # 48 mL, 11 Refills, [facility], 90, USE 1 SPRAY IN EACH NOSTRIL DAILY, 154.8, cm, 09/14/21 9:50:00 EDT, Height, 56, kg, 12/09/20 9:16:00 EDT, Dry Weight Start Date: 11/15/21 Status: Ordered Inderal LA 80 mg oral capsule, extended release 80 mg, 1, capsule, By Mouth, Daily, # 30 capsule, Refills 3, Tot. Refills 3, Maintenance, 06/23/20 10:00:00 EST, Route to Pharmacy Electronically, [facility]/pharmacy #0957, To replace Topamax. Partial fillupon patient request if the prescription is for a... Start Date: 06/23/20 Status: Ordered lisinopril 10 mg oral tablet 1, tablet, By Mouth, Daily, # 90 tablet, Refills 3, Route to Pharmacy Electronically, [facility] [address]1323, 154.8, cm, 09/14/21 9:50:00 EDT, Height, 56, kg, 12/09/20 9:16:00 EDT, Dry Weight Start Date: 12/07/21 Status: Ordered melatonin 3 mg oral tablet 2 tablet = 6 mg, By Mouth, Daily at bedtime, PRN Insomnia, # 60 tablet, 2 Refills, Maintenance, 04/13/22 16:50:00 EST, [facility]/pharmacy #0957, Partial fill upon patient request if the prescription is fora schedule II opioid drug., 154.8, cm, 01/25/22 14:... Start Date: 04/13/22 Status: Ordered nicotine 2 mg oral transmucosal lozenge 1 lozenge = 2 mg, By Mouth, Every 2 hours, # 72 each, 11 Refills, Maintenance, 10/13/20 8:35:00 EDT, [facility]/pharmacy #0957, Partial fill upon patient request if [...] each, Refills 3, Tot. Refills 3, Maintenance, [place] Ensure 1 can TID. Dx: C34.90, R63.4, 03/29/21 15:29:00 EST, Supply Start Date: 03/29/21 Status: Ordered omeprazole 20 mg oral enteric coated capsule 1 capsule = 20 mg, By Mouth, Daily, # 90 capsule, 3 Refills, Maintenance, 07/08/21 15:23:00 EST, ECCapsule, [facility]/pharmacy #0957, Partial fill upon patient request if the prescription is for a schedule II opioid drug., 154.8, cm, 06/29/21 9:00:00 EST,... Start Date: 07/08/21 Status: Ordered Stiolto Respimat 60 ACT 2.5 mcg-2.5 mcg/inh inhalation aerosol 2 puffs, Inhalation, Every 24 hours, TO REPLACE TIOTROPIUM., # 4 mL, 11 Refills, [facility], 154.8, cm, 09/14/21 9:50:00 EDT, Height, 56, kg, 12/09/20 9:16:00 EDT, Dry Weight Start Date: 11/17/21 Status: Ordered Ventolin HFA 108 mcg/inh inhalation aerosol with adapter 2 puffs, Inhalation, 4 times a day, PRN NEEDED FOR WHEEZING, # 18 each, 5 Refills, [facility], 154.8, cm, 09/14/21 9:50:00 EDT, Height, 56, [...] Clubbing Confirmed Active Drug abuse: Suboxone via [facility] Confirmed Active Esophageal reflux (GERD) Confirmed 05/09/12 Active JASON (generalized anxiety disorder) Confirmed Active HPV: Positive in 07/15; 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, negative in 10/16 Confirmed Active Hypertension Confirmed 08/23/10 Active Lung cancer Confirmed Active Lung nodules Confirmed Active Opioid use disorder Confirmed Active Osteoporosis Confirmed Active Pain in finger of right hand Confirmed Active *[id number] paige Escamilla Confirmed Active Pelvic mass Confirmed [...] Team Personnel Name: Jennyfer Stokes NP Position: [facility] PCO Associate Professional Member Role: PCP Address: Address: [address] [place] [address]- Care Team Related Persons Name: JOSELIN SCHMIDT Address: [address] [place] [address] Name: ALYSE HAUSER Address: home [address] [place] [id number] Name: NO, ONE AT THIS TIME
--- OUTSIDE RECORDS SUMMARY | 2022-12-26 10:35 | XMS_ITS | Continuity of Care Document ---
Author Name Unknown Organization [facility] Address [address] [place] [address]- Care Team Providers Care Vp Construction Name Role Phone Divina MARINELLI, Adalberto Reeder Primary Care Physician En[place] [facility] [place] [id number] Date(s): 12/30/19 - 01/29/[address] [address]- [facility] Attending Physician: Angelina Mendoza Admitting Physician: Angelina [...] 1 Refills, Maintenance, 07/31/19 11:08:00 EDT, Tablet, [facility]/pharmacy #0957, 154.9, cm, 07/04/19 9:38:00 EST, [...] 03/19/19 10:53:39 EST, Route to Pharmacy Electronically, [id number], [facility]/pharmacy #1026 Start Date: 03/19/19 Status: Ordered cetirizine 10 mg oral tablet 1 tablet = 10 mg, By Mouth, Daily, PRN Other, PRN allergies, # 30 tablet, 11 Refills, Maintenance, 05/28/19 12:01:00 EST, Tablet, [facility]/pharmacy #0957, 154.9, cm, 05/28/19 11:40:00 EST, Height, 55.3, kg, 04/19/19 8:36:00 EST, Dry Weight Start Date: 05/28/19 Status: Ordered chantix 1mg tablet 1 tablet = 1 mg, By Mouth, 2 times a day, after meals, to begin after completing starter pack, # 1 pack/packet, 0 Refills, Maintenance, 01/14/20 12:19:00 EDT, Tablet, [facility]/pharmacy #0957, 154.9, cm, 12/30/19 11:15:00 EDT, Height, 55.3, kg, 04/19/19 8:3... Start Date: 01/14/20 Status: Ordered clonazePAM 1 mg oral tablet TAKE 1 TABLET BY MOUTH 3 TIMES A DAY Start Date: 10/20/17 Status: Ordered clonazePAM 1 mg oral tablet 1 tablet = 1 mg, By Mouth, 3 times a day, Please fax to [facility] [address] [phone], # 90 tablet, 2 Refills, Maintenance, 09/17/18 12:46:43 EDT, Tablet Start Date: 09/17/18 Status: Ordered CPAP Equipment See Instructions, # 1 units, Refills 12, Tot. Refills 12, Maintenance, BiPAP supplies: Mask, tubing, filters, headgear, chin strap, heated water chamber Dx: ELSA G47.33 Length of need 99 months Pleasefax to [facility], [phone], 09/04/18 15:13:48 EDT, Co... Start Date: 09/04/18 Status: Ordered CPAP Equipment See Instructions, # 1 units, Refills 12, Tot. 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 Start Date: 06/30/17 Status: Ordered diphenhydrAMINE 25 [...] DAY [place] AND THROAT AFTER EACH USE, [facility]/pharmacy #1026 Start Date: 03/15/19 Status: Ordered lisinopril 10 mg oral tablet 10 mg, 1, tablet, By Mouth, Daily, # 30 tablet, Refills 11, Tot. Refills 11, Maintenance, 05/28/19 12:01:00 EST, Route to Pharmacy Electronically, [facility]/pharmacy #0957, 154.9, cm, 05/28/19 11:40:00 EST, [...] 05/28/19 12:01:00 EST, Route to Pharmacy Electronically, [id number], [facility]/pharmacy #0957, 154.9, cm, 05/28/19 11:40:00 EST, [...] 03/03/20 15:21:00 EDT, 12/02/19 15:20:00 EDT, Tablet, [facility]/pharmacy #0957, 154.9, cm, 08/22/19 15:10:00 EDT, Height, 55.3, kg, 04/19/19 8:36:00 EST, Dry Weight Start Date: 12/02/19 Stop Date: 03/03/20 Status: Ordered Topamax 50 mg oral tablet 1 tablet = 50 mg, By Mouth, 2 times a day, # 180 tablet, 1 Refills, Maintenance, 09/18/19 8:59:00 EDT, Tablet, [facility]/pharmacy #0957, 154.9, cm, 08/22/19 15:10:00 EDT, [...] Active Clubbing(Confirmed) Active Drug abuse: Suboxone via [facility](Confirmed) Active Esophageal reflux (GERD)(Confirmed) 05/09/12 [...]
--- OUTSIDE RECORDS SUMMARY | 2022-12-26 10:35 | XMS_ITS | Continuity of Care Document ---
Author Name Unknown Organization [facility] Address [address] [place] [address]- Care Team Providers Care Animal Trainer Name Role Phone Divina MARINELLI, Adalberto Reeder Primary Care Physician Encounter [facility] Date(s): 10/06/20 - 11/05/[address] [address]- Allergies, Adverse Reactions, Alerts Substance Reaction Severity [...] 17:04:00 EDT, Aerosol, Route to Pharmacy Electronically, [id number]... Start Date: 08/03/20 Status: Ordered BiPAP Machine [...] 56 tablet, 3 Refills, Acute, [facility], 154.9, cm, 06/11/20 9:48:00 EST, Height, 58, kg, 06/05/20 12:02:00 EST, Dry Weight Start Date: 08/03/20 Status: Ordered clonazePAM 1 mg oral tablet 1 tablet = 1 mg, By Mouth, 3 times a day, PRN Anxiety, Please dispense on/after 11/06/20, # 80 tablet, 0 Refills, Maintenance, 10/13/20 8:26:00 EDT, Tablet, [facility]/pharmacy #0957, 154.9, cm, 10/13/20 7:56:00 EDT, Height, 58, kg, 06/05/20 12:02:00 EST, Dry... Start Date: 10/13/20 Status: Ordered CPAP Equipment See Instructions, # 1 units, Refills 12, Tot. Refills 12, Maintenance, BIPAP supplies: Mask, tubing, filters, headgear, chin strap, water chamber 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) Lengthof need 99 months Please fax to [facility], [phone],... Start Date: 06/30/17 Status: Ordered CPAP Equipment See Instructions, # 1 each, Refills 12, Tot. Refills 12, Maintenance, BiPAP supplies: Mask, tubing,filters, headgear, chin strap, heated water chamber Dx: ELSA G47.33 Length of need 99 months Please fax to [facility] fax # [phone], 07/02/20 14:50:0... Start Date: 07/02/20 Status: Ordered Eucerin Unscented topical lotion See Instructions, apply to skin daily, dispense 1 jar, # 1 each, 11 Refills, Maintenance, 09/25/19 16:37:00 EDT, [facility]/pharmacy #0957, apply to skin daily, dispense 1 [...] Gm, 11 Refills, Maintenance, 11/05/20 17:11:00 EDT, [facility]/pharmacy #0957, 1 sprays Nasal Daily, 154.9, cm, 10/13/20 7:56:00 EDT, Height, 58, kg, 06/05/20 12:02:00 EST, Dry Weight Start Date: 11/05/20 Status: Ordered Flovent HFA 220 mcg/inh inhalation aerosol See Instructions, TAKE 2 PUFFS BY MOUTH TWICE A DAY RINSE MOUTH AND THROAT AFTER EACH USE, # 12 Unknown, 11 Refills, Soft Stop, 11/05/20 17:11:00 EDT, [facility]/pharmacy #0957, 154.9, cm, 10/13/20 7:56:00 EDT, Height, [...] 09/28/20 13:15:00 EDT, Route to Pharmacy Electronically, [facility]/pharmacy #0957, 154.9, cm, 09/22/20 10:26:00 EDT, Height, 58, kg, 06/05/20 12:02:00 EST, Dry Weight Start Date: 09/28/20 Stop Date: 09/23/21 Status: Ordered nicotine 2 mg oral transmucosal lozenge 1 lozenge = 2 mg, By Mouth, Every 2 hours, # 72 each, 11 Refills, Maintenance, 10/13/20 8:35:00 EDT, [facility]/pharmacy #0957, Partial fill upon patient [...] each, Refills 11, Tot. Refills 11, Maintenance, 11/05/20 17:11:00 EDT, Route to Pharmacy Electronically, [id number], [facility]/pharmacy #0957, 154.9, cm, 10/13/20 7:56:00 EDT, Height, 5... Start Date: 11/05/20 Stop Date: 10/31/21 Status: Ordered Stiolto Respimat 60 ACT 2.5 mcg-2.5 mcg/inh inhalation aerosol 2 puffs, Inhalation, Every 24 hours, to replace tiotropium, # 4 Gm, 11 Refills, Maintenance, 11/05/20 17:11:00 EDT, Aerosol, [facility]/pharmacy #0957, 154.9, cm, 10/13/20 7:56:00 EDT, Height, [...] Active Clubbing(Confirmed) Active Drug abuse: Suboxone via [facility](Confirmed) Active Esophageal reflux [...]
--- OUTSIDE RECORDS SUMMARY | 2022-12-26 10:35 | XMS_ITS | Continuity of Care Document ---
Author Name Unknown Organization [facility] Address [address] [place] [address] Kostas gupta, [address] [place] [address]- Care Team Providers Care Rn Float Name Role Phone Mavis Allen Primary Care Physician [facility] - 12/07/22 [facility] [address] [place] [address] Drive, [address] [place] [address]- Allergies, Adverse Reactions, Alerts Substance Reaction Severity Status Zoloft O/E - Parkinsonian tremor Ac tive Rubber Active Other Environmental Allergy 1 Active 1ELASTIC Immunizations Given and Recorded Vaccine Date Status Refusal Reason [id number] 12y+ bivalent booster vax 05/11/22 Recorded influenza [...] vaccine, inactivated 04/23/08 Give n SARS-CoV-2 mRNA (plpwjrj-xtug-mpqeb) vax 12/14/21 Given SARS-CoV-2 mRNA (olmjhdf-ijfq-kbfmd) vax 09/14/21 Given SARS-CoV-2 (COVID-19) mRNA BNT-162b2 [...] Refills, Maintenance, 11/18/22 15:43:00 EDT, Tablet, [facility]/pharmacy #0957, Partial fill upon patient request if the prescription is for a schedule II opioid drug., 154.94, cm, 11/18/22 15:19:00 EDT, H... Start Date: 11/18/22 Status: Ordered calcium-vitamin D 600 mg-400 intl units oral tablet 1 tablet, By Mouth, 2 times a day with meals, # 180 tablet, 0 Refills, Maintenance, 11/17/22 12:06:00 EDT, [facility], 90, TAKE 1 TABLET BY MOUTH TWICE [...] Maintenance, 11/18/22 16:36:00 EDT, DIS Tablet, [facility]/pharmacy #0957, Partial fill upon patient request [...] EACH USE., # 12 each, 11 Refills, [facility] STORE 95165, 154.8, cm, 09/14/21 9:50:00 EDT, Height, 56, kg, 12/09/20 9:16:00 EDT, Dry Weight Start Date: 11/17/21 Status: Ordered fluticasone 50 mcg/inh nasal spray See Instructions, USE 1 SPRAY IN EACH NOSTRIL DAILY, # 48 mL, 11 Refills, [facility], 90, USE 1 SPRAY IN EACH NOSTRIL DAILY, 154.8, cm, 09/14/21 9:50:00 EDT, Height, 56, kg, 12/09/20 9:16:00 EDT, Dry Weight Start Date: 11/15/21 Status: Ordered lisinopril 10 mg oral tablet 1, tablet, By Mouth, Daily, # 90 tablet, Refills 3, Route to Pharmacy Electronically, [facility] 20941, 154.8, cm, 09/14/21 9:50:00 EDT, Height, 56, kg, 12/09/20 9:16:00 EDT, Dry Weight Start Date: 12/07/21 Status: Ordered melatonin 3 mg oral tablet 2 tablet = 6 mg, By Mouth, Daily at bedtime, PRN Insomnia, # 60 tablet, 2 Refills, Maintenance, 08/04/22 12:21:00 EDT, [facility]/pharmacy #0957, Partial fill upon patient request [...] Refills, Maintenance, 08/01/22 14:52:00 EDT, ECCapsule, [facility]/pharmacy #0957, Partial fill upon patient request [...] Confirmed Active Papule of skin Confirmed Active *[id number] Cartoonist Special Effects Sandra Rob Confirmed Active Pelvic mass Confirmed [...] Primary Care Nurse Name: Mavis Allen Position: [facility] PCO Associate Professional Member Role: PCP Address: Address: [address] [place] [address]. [address] [place] [address]- Name: Allyn Rhoades Position: S RN Member [...] Persons Name: ROXANA JOSELIN Address: home [address] [place] [address] Name: ALYSE HAUSER Address: home [address] [place] [address] Name: NO, ONE AT THIS TIME
--- OUTSIDE RECORDS SUMMARY | 2022-12-26 10:35 | XMS_ITS | Continuity of Care Document ---
Author Name Unknown Organization [facility] Address [address] [place] [address] candy, [address] [place] [address]- Care Team Providers Care Elephant Keeper Name Role Phone Divina MARINELLI, Adalberto Reeder Primary Care Physician [facility] 05[facility]20 - 06/05/20 [facility] [address] [place] [address], [address] [place], [place] [address] Allergies, Adverse Reactions, Alerts Substance [...] tablet = 0.5 mg, By Mouth, Once, inbound call center representative to procedure. May repeat X 1, [...] 3 Refills, Maintenance, 02/18/20 9:41:00 EDT, Tablet, [facility]/pharmacy #0957, 154.9, cm, 12/30/19 11:15:00 EDT, Height, 55.3, kg, 04/19/19 8:36... Start Date: 02/18/20 Status: Ordered clonazePAM 1 mg oral tablet 1 tablet = 1 mg, By Mouth, 3 times a day, Please fax to [facility] on [address] [phone], # 90 tablet, 2 Refills, Maintenance, 09/17/18 12:46:43 EDT, Tablet Start Date: 09/17/18 Status: Ordered CPAP Equipment See Instructions, # 1 units, Refills 12, Tot. Refills 12, Maintenance, BiPAP supplies: Mask, tubing, filters, headgear, chin strap, heated water chamber Dx: ELSA G47.33 Length of need 99 months Pleasefax to [facility], [phone], 09/04/18 15:13:48 EDT, Co... Start Date: 09/04/18 Status: Ordered CPAP Equipment See Instructions, # 1 units, Refills 12, Tot. Refills 12, Maintenance, BIPAP supplies: Mask, tubing, filters, headgear, chin strap, water chamber 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) Lengthof need 99 months Please fax to [facility], [phone],... Start Date: 06/30/17 Status: Ordered Eucerin Unscented topical lotion See Instructions, apply to skin daily, dispense 1 jar, # 1 each, 11 Refills, Maintenance, 09/25/19 16:37:00 EDT, [facility]/pharmacy #0957, apply to skin daily, [...] Gm, 11 Refills, Maintenance, 02/18/20 9:43:00 EDT, [facility]/pharmacy #0957,1 sprays Nasal Daily, 154.9, cm, 12/30/19 11:15:00 EDT, Height, 55.3, kg, 04/19/19 8:36:00 EST, DryWeight Start Date: 02/18/20 Status: Ordered Flovent HFA 220 mcg/inh inhalation aerosol See Instructions, TAKE 2 PUFFS BY MOUTH TWICE A DAY RINSE MOUTH AND THROAT AFTER EACH USE, # 12 Unknown, 11 Refills, Soft Stop, 02/18/20 9:42:00 EDT, [facility]/pharmacy #0957, 154.9, cm, 12/30/19 11:15:00 EDT, Height, 55.3, kg, 04/19/19 8:36:00 EST, Dry Weight Start Date: 02/18/20 Status: Ordered lisinopril 10 mg oral tablet 10 mg, 1, tablet, By Mouth, Daily, # 30 tablet, Refills 11, Tot. Refills 11, Maintenance, 02/18/20 9:43:00 EDT, Route to Pharmacy Electronically, [facility]/pharmacy #0957, 154.9, cm, 12/30/19 11:15:00 EDT,Height, 55.3, [...] 04/20/20 13:51:00 EST, Route to Pharmacy Electronically, [id number], [facility]/pharmacy #0957, 154.9, cm, 12/30/19 11:15:00 EDT, Height,... Start Date: 04/20/20 Stop Date: 04/15/21 Status: Ordered Stiolto Respimat 60 ACT 2.5 mcg-2.5 mcg/inh inhalation aerosol 2 puffs, Inhalation, Every 24 hours, to replace tiotropium, # 4 Gm, 11 Refills, Maintenance, 02/18/20 9:43:00 EDT, Aerosol, [facility]/pharmacy #0957, 154.9, cm, 12/30/19 11:15:00 EDT, Height, [...] 3 Refills, Maintenance, 03/16/20 16:51:00 EST, Tablet, [facility]/pharmacy #0957, 154.9, cm, 12/30/19 11:15:00 EDT, Height, 55.3, kg, 04/19/19 8:36:00 EST, Dry Weight Start Date: 03/16/20 Stop Date: 03/11/21 Status: Ordered topiramate 25 mg oral capsule 1 capsule = 25 mg, By Mouth, Daily, take with AM topiramate 50 mg for total 75 mg QAM and 50 mg QPM, # 90 capsule, 1 Refills, Maintenance, 04/29/20 11:47:00 EST, Capsule, [facility]/pharmacy #0957, Partial fill upon patient request, 154.9, [...] Clubbing(Confirmed) Active [facility]: [facility]) Active Esophageal reflux (GERD)(Confirmed) 05/09/12 [...]
--- OUTSIDE RECORDS SUMMARY | 2022-12-26 10:35 | XMS_ITS | Continuity of Care Document ---
Author Name Unknown Organization [facility] Address [address] [place] [address]- Care Team Providers Care Molder Wax Ball Name Role Phone Mavis Allen Primary Care Physician [facility]): 07/21/22 - 08/20/22 [facility] [address] [place] [address]- Allergies, Adverse Reactions, Alerts Substance Reaction Severity Status Zoloft O/E - Parkinsonian tremor Ac tive Rubber Active Other Environmental Allergy 1 Active 1ELASTIC Immunizations Given and Recorded Vaccine Date Status Refusal Reason [id number] 12y+ bivalent booster vax 05/11/22 Recorded influenza [...] vaccine, inactivated 04/23/08 Give n SARS-CoV-2 mRNA (yhwemjx-eyuj-qubps) vax 12/14/21 Given SARS-CoV-2 mRNA (lpzweec-mmhk-zjost) vax 09/14/21 Given SARS-CoV-2 (COVID-19) mRNA BNT-162b2 [...] Refills, Maintenance, 05/26/22 19:48:00 EST, [facility], 154.8, cm, 05/25/22 13:21:00 EST, Height, 56, [...] tablet, 0 Refills, Maintenance, 07/21/22 6:46:00 EDT, [facility] STORE 67484, 90, TAKE 1 TABLET BY MOUTH TWICE [...] tablet, 0 Refills, Maintenance, 07/11/22 15:10:00 EST, [facility]/pharmacy #0957, Partial fill upon patient request [...] 99 months Please fax to [facility], [phone],... Start Date: 06/30/17 Status: Ordered CPAP Equipment See Instructions, # 1 each, Refills 12, Tot. Refills 12, Maintenance, BiPAP supplies: Mask, tubing,filters, headgear, chin strap, heated water chamber Dx: ELSA G47.33 Length of need 99 months Please fax to [facility] fax # [phone], 07/02/20 14:50:0... Start Date: 07/02/20 Status: Ordered cyanocobalamin 500 mcg oral tablet 1 tablet = 500 mcg, By Mouth, Daily, on empty stomach, # 90 tablet, 3 Refills, Maintenance, 03/26/21 20:06:00 EST, Tablet, [facility]/pharmacy #0957, Partial fill upon patient request if the prescription isfor a schedule II opioid drug., 154.8, cm, 03/23/21... Start Date: 03/26/21 Status: Ordered Flovent HFA 220 mcg/inh inhalation aerosol 2 puffs, Inhalation, 2 times a day, AND THROAT AFTER EACH USE., # 12 each, 11 Refills, [facility] 414[facility], 154.8, cm, 09/14/21 9:50:00 EDT, Height, 56, kg, 12/09/20 9:16:00 EDT, Dry Weight Start Date: 11/17/21 Status: Ordered fluticasone 50 mcg/inh nasal spray See Instructions, USE 1 SPRAY IN EACH NOSTRIL DAILY, # 48 mL, 11 Refills, [facility] 55[facility], 90, USE 1 SPRAY IN EACH NOSTRIL [...] tablet, Refills 3, Route to Pharmacy Electronically, [facility] 62240, 154.8, cm, 09/14/21 9:50:00 EDT, Height, 56, kg, 12/09/20 9:16:00 EDT, Dry Weight Start Date: 12/07/21 Status: Ordered melatonin 3 mg oral tablet 2 tablet = 6 mg, By Mouth, Daily at bedtime, PRN Insomnia, # 60 tablet, 2 Refills, Maintenance, 08/04/22 12:21:00 EDT, [facility]/pharmacy #0957, Partial fill upon patient request [...] each, 11 Refills, Maintenance, 10/13/20 8:35:00 EDT, [facility]/pharmacy #0957, Partial fill upon patient request if the prescription is for a schedule II opioid drug., 1 lozenge By Mouth Every 2 hours, 154.9,... Start Date: 10/13/20 Status: Ordered Nutritional Supplements See Instructions, # 90 each, Refills 3, Tot. Refills 3, Maintenance, [place] Ensure 1 can TID. 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 [place] [address]- Care Team Related Persons Name: ROXANAJOSELIN Address: home [address] [place] [address] Name: ALYSE HAUSER Address: home [address] [place] [id number] Name: NO, ONE AT THIS TIME
--- OUTSIDE RECORDS SUMMARY | 2022-12-26 10:35 | XMS_ITS | Continuity of Care Document ---
Author Name Unknown Organization [facility] Address [address] [place] [address]- Care Team Providers Care Compliance Program Manager Name Role Phone Adalberto Murcia MD Primary Care Physician [facility] Date[facility]): 11/26/21 - 01/21/[address] [address]- Attending Physician: Not on Staff, Attending MD Referring Physician: Adalberto Murcia MD Allergies, Adverse Reactions, Alerts Substance Reaction Severity Status Zoloft O/E - Parkinsonian tremor Ac tive Rubber Active Other Environmental Allergy 1 Active 1ELASTIC Immunizations Given and Recorded Vaccine Date Status Refusal Reason SARS-CoV-2 mRNA (xztvalf-ucfq-ozhar) vax 12/14/21 Given SARS-CoV-2 mRNA (ontqpzs-icyh-grehy) vax 09/14/21 Given SARS-CoV-2 (COVID-19) mRNA BNT-162b2 [...] cm, 02/2... Start Date: 08/12/19 Status: Ordered alendronate 70 mg oral tablet 1 tablet = 70 mg, By Mouth, Every week, # 12 tablet, 3 Refills, Maintenance, 09/14/21 10:11:00 EDT,Tablet, [facility]/pharmacy #0969, Partial fill upon patient request if the [...] # 180 tablet, 1 Refills, [facility], 90, TAKE 1 TABLET BY MOUTH TWICE [...] PhysicianStop 04/15/22 8:28:00 EST, 12/14/21 8:27:00 EDT, [facility]/pharmacy #0957, 154.8, cm, 09/14/21 9:50:00 EDT, Height, 56, kg, 12/09/20 9:16:00 EDT, Dry Weight Start Date: 12/14/21 Stop Date: 04/15/22 Status: Ordered clonazePAM 0.25 mg oral tablet, disintegrating See Instructions, 1 tablet By Mouth 2 times a day, may take one more at bedtime as needed. [place] PatReviewed. Please fill on/after 12/06/21, # 62 tablet, 1 Refills, Maintenance, 11/26/21 15:32:00 EDT, [facility]/pharmacy #0957, Partial fill upon patient reque... Start Date: 11/26/21 Status: Ordered CPAP Equipment See Instructions, # 1 units, Refills 12, Tot. Refills 12, Maintenance, BIPAP supplies: Mask, tubing, filters, headgear, chin strap, water chamber Dx: Cheko león respiration, severe (786.04) Lengthof need 99 months Please fax to [facility], [phone],... Start Date: 06/30/17 Status: Ordered CPAP Equipment See Instructions, # 1 each, Refills 12, Tot. Refills 12, Maintenance, BiPAP supplies: Mask, tubing,filters, headgear, chin strap, heated water chamber Dx: ELSA G47.33 Length of need 99 months Please fax to [facility] fax # [phone], 07/02/20 14:50:0... Start Date: 07/02/20 Status: Ordered [...] each, 11 Refills, Maintenance, 09/25/19 16:37:00 EDT, [facility]/pharmacy #0957, apply to skin daily, dispense [...] EACH USE., # 12 each, 11 Refills, [facility] STORE 75061, 154.8, cm, 09/14/21 9:50:00 EDT, Height, 56, kg, 12/09/20 9:16:00 EDT, Dry Weight Start Date: 11/17/21 Status: Ordered fluticasone 50 mcg/inh nasal spray See Instructions, USE 1 SPRAY IN EACH NOSTRIL DAILY, # 48 mL, 11 Refills, [facility] 49716, 90, USE 1 SPRAY IN EACH NOSTRIL [...] tablet, Refills 3, Route to Pharmacy Electronically, [facility] STORE 48494, 154.8, cm, 09/14/21 9:50:00 EDT, Height, 56, [...] each, Refills 3, Tot. Refills 3, Maintenance, [place] Ensure 1 can TID. Dx: C34.90, R63.4, 03/29/21 15:29:00 EST, Supply Start Date: 03/29/21 Status: Ordered omeprazole 20 mg oral enteric coated capsule 1 capsule = 20 mg, By Mouth, Daily, # 90 capsule, 3 Refills, Maintenance, 07/08/21 15:23:00 EST, [facility]apsule, [facility], Partial fill upon patient request if the prescription is for a schedule II opioid drug., 154.8, cm, 06/29/21 9:00:00 EST,... Start Date: 07/08/21 Status: Ordered Stiolto Respimat 60 ACT 2.5 mcg-2.5 mcg/inh inhalation aerosol 2 puffs, Inhalation, Every 24 hours, TO REPLACE TIOTROPIUM., # 4 mL, 11 Refills, [facility] 35216, 154.8, cm, 09/14/21 9:50:00 EDT, Height, 56, kg, 12/09/20 9:16:00 EDT, Dry Weight Start Date: 11/17/21 Status: Ordered Ventolin HFA 108 mcg/inh inhalation aerosol with adapter 2 puffs, Inhalation, 4 times a day, PRN NEEDED FOR WHEEZING, # 18 each, 5 Refills, [facility] 70045, 154.8, cm, 09/14/21 9:50:00 EDT, Height, 56, kg, 12/09/20 9:16:00 EDT, Dry Weight Start Date: 11/28/21 Status: Ordered Problem List Condition Effective Dates Status Health Status Inform ant Age at leaving school - ged(Confirmed) Active ASCUS(Confirmed) Active Cheko-León respiration: s ee 05/25/11 Sleep Report(Confirmed) 05/25/11 Active Hep C: Cleared without treatment(Confirmed) Active Clubbing(Confirmed) Active Drug abuse: Suboxone via [facility](Confirmed) Active Esophageal reflux (GERD)(Confirmed) 05/09/12 [...] Team Personnel Name: Adalberto Murcia MD Address: [address] [place] [address]-
--- OUTSIDE RECORDS SUMMARY | 2022-12-26 10:35 | XMS_ITS | Continuity of Care Document ---
Author Name Unknown Organization [facility] Address [address] [place] [address]- Care Team Providers Care Escrow Representative Name Role Phone Divina MARINELLI, Adalberto Reeder Primary Care Physician [facility] 06[facility]09[facility]21 - 07/09/21 [facility] [address] [place] [address]- Allergies, Adverse Reactions, Alerts Substance Reaction Severity [...] 17:04:00 EDT, Aerosol, Route to Pharmacy Electronically, [id number]... Start Date: 08/03/20 Status: Ordered BiPAP Machine [...] 11 Refills, Maintenance, 11/05/20 17:11:00 EDT, Tablet, [facility]/pharmacy #0957, 1 [...] PACK, # 56 tablet, 3 Refills, Acute, [facility] STORE 44335, 154.9, cm, 06/11/20 9:48:00 EST, Height, 58, kg, 06/05/20 12:02:00 EST, Dry Weight Start Date: 08/03/20 Status: Ordered clonazePAM 0.5 mg oral tablet See Instructions, 1 tablet By Mouth 2 times a day. Mass Pat Reviewed. Please fill on/after 07/07/21, # 60 tablet, 0 Refills, Maintenance, 06/29/21 9:32:00 EST, [facility]/pharmacy #0957, Partial [...] fax to [facility], [phone],... Start Date: 06/30/17 Status: Ordered CPAP Equipment See Instructions, # 1 each, Refills 12, Tot. Refills 12, Maintenance, BiPAP supplies: Mask, tubing,filters, headgear, chin strap, heated water chamber Dx: ELSA G47.33 Length of need 99 months Please fax to [facility] fax # [phone], 07/02/20 14:50:0... Start Date: 07/02/20 Status: Ordered [...] 11 Refills, Maintenance, 11/05/20 17:11:00 EDT, [facility]/pharmacy #0957, 1 sprays Nasal Daily, 154.9, cm, 10/13/20 7:56:00 EDT, Height, 58, kg, 06/05/20 12:02:00 EST, Dry Weight Start Date: 11/05/20 Status: Ordered Flovent HFA 220 mcg/inh inhalation aerosol See Instructions, TAKE 2 PUFFS BY MOUTH TWICE A DAY RINSE MOUTH AND THROAT AFTER EACH USE, # 12 Unknown, 11 Refills, Soft Stop, 11/05/20 17:11:00 EDT, [facility]/pharmacy #0957, 154.9, cm, 10/13/20 7:56:00 [...] 13:15:00 EDT, Route to Pharmacy Electronically, [facility]/pharmacy #0957, 154.9, cm, 09/22/20 10:26:00 [...] each, Refills 3, Tot. Refills 3, Maintenance, [place] Ensure 1 can TID. Dx: C34.90, R63.4, [...] Refills, Maintenance, 11/05/20 17:11:00 EDT, Aerosol, [facility]/pharmacy #0957, 154.9, cm, 10/13/20 7:56:00 [...] Active Clubbing(Confirmed) Active Drug abuse: Suboxone via [facility](Confirmed) Active Esophageal reflux (GERD)(Confirmed) 05/09/12 Active JASON (generalized anxiety disorder)(Confirmed) Active HPV: Positive in 3/10; neg i n 01/15, negative in 10/16(Confirmed) [...]
--- OUTSIDE RECORDS SUMMARY | 2022-12-26 10:35 | XMS_ITS | Continuity of Care Document ---
Author Name Unknown Organization [facility] Address [address] [place] [address]- Care Team Providers Care Ballroom Dance Instructor Name Role Phone Adalberto Murcia MD Primary Care Physician [facility] 06[facility]21 - 07/01/21 [facility] [address] [place] [address]- Allergies, Adverse Reactions, Alerts Substance Reaction Severity [...] 17:04:00 EDT, Aerosol, Route to Pharmacy Electronically, [id number]... Start Date: 08/03/20 Status: Ordered BiPAP Machine [...] 56 tablet, 3 Refills, Acute, [facility], 154.9, cm, 06/11/20 9:48:00 EST, Height, 58, [...] months Please fax to [facility], [phone],... Start Date: 06/30/17 Status: Ordered CPAP Equipment See Instructions, # 1 each, Refills 12, Tot. Refills 12, Maintenance, BiPAP supplies: Mask, tubing,filters, headgear, chin strap, heated water chamber Dx: ELSA G47.33 Length of need 99 months Please fax to [facility] fax # [phone], 07/02/20 14:50:0... Start Date: 07/02/20 Status: Ordered cyanocobalamin 500 mcg oral tablet 1 tablet = 500 mcg, By Mouth, Daily, on empty stomach, # 90 tablet, 3 Refills, Maintenance, 03/26/21 20:06:00 EST, Tablet, [facility]/pharmacy #0957, Partial fill upon patient request if the prescription isfor a schedule II opioid drug., 154.8, cm, 03/23/21... Start Date: 03/26/21 Status: Ordered Eucerin Unscented topical lotion See Instructions, apply to skin daily, dispense 1 jar, # 1 each, 11 Refills, Maintenance, 09/25/19 16:37:00 EDT, [facility]/pharmacy #0957, apply to skin daily, dispense 1 [...] 11 Refills, Maintenance, 11/05/20 17:11:00 EDT, [facility]/pharmacy #0957, 1 sprays Nasal Daily, 154.9, cm, 10/13/20 7:56:00 EDT, Height, 58, kg, 06/05/20 12:02:00 EST, Dry Weight Start Date: 11/05/20 Status: Ordered Flovent HFA 220 mcg/inh inhalation aerosol See Instructions, TAKE 2 PUFFS BY MOUTH TWICE A DAY RINSE MOUTH AND THROAT AFTER EACH USE, # 12 Unknown, 11 Refills, Soft Stop, 11/05/20 17:11:00 EDT, [facility]/pharmacy #0957, 154.9, cm, 10/13/20 7:56:00 EDT, Height, [...] 09/28/20 13:15:00 EDT, Route to Pharmacy Electronically, [facility]/pharmacy #0957, 154.9, cm, 09/22/20 10:26:00 EDT, Height, 58, kg, 06/05/20 12:02:00 EST, Dry Weight Start Date: 09/28/20 Stop Date: 09/23/21 Status: Ordered melatonin 3 mg oral tablet 1 tablet = 3 mg, By Mouth, Daily at bedtime, PRN Insomnia, # 60 tablet, 11 Refills, Maintenance, 03/29/21 21:06:00 EST, [facility]/pharmacy #0957, Partial fill [...] each, Refills 3, Tot. Refills 3, Maintenance, [place] Ensure 1 can TID. Dx: C34.90, R63.4, 03/29/21 15:29:00 EST, Supply Start Date: 03/29/21 Status: Ordered Stiolto Respimat 60 ACT 2.5 mcg-2.5 mcg/inh inhalation aerosol 2 puffs, Inhalation, Every 24 hours, to replace tiotropium, # 4 Gm, 11 Refills, Maintenance, 11/05/20 17:11:00 EDT, Aerosol, [facility]/pharmacy #0957, 154.9, cm, 10/13/20 7:56:00 EDT, Height, 58, kg, 06/05/20 12:02:00 EST, Dry Weight Start Date: 11/05/20 Status: Ordered Ventolin HFA 108 mcg/inh inhalation aerosol with adapter 2 puffs, Inhalation, 4 times a day, PRN for wheezing, # 18 Gm, 11 Refills, Maintenance, 11/12/20 9:46:00 EDT, Aerosol, [facility]/pharmacy #0957, Partial fill upon [...]
--- OUTSIDE RECORDS SUMMARY | 2022-12-26 10:35 | XMS_ITS | Continuity of Care Document ---
Author Name Unknown Organization [facility] Address [address] [place] [address]- Care Team Providers Care Ferry Boat Captain Name Role Phone Mavis Allen Primary Care Physician [facility]counter [facility] Date[facility]s): 09/05/22 - 10/08/22 [facility] [address] [place], [place] [address] Attending Physician: Micah Simpson MD Admitting Physician: Micah Simpson MD Referring Physician: Marcio Childers MD Allergies, Adverse Reactions, Alerts Substance Reaction Severity Status Zoloft O/E - Parkinsonian tremor Ac tive Rubber Active Other Environmental Allergy 1 Active 1ELASTIC Immunizations Given and Recorded Vaccine Date Status Refusal Reason [id number] 12y+ bivalent booster vax 05/11/22 Recorded influenza virus vaccine, inactivated 02/16/22 Jatinder rded influenza virus vaccine, inactivated 02/18/21 Jatinder rded influenza virus vaccine, inactivated 1 02/23/20 Re corded influenza virus vaccine, inactivated 02/08/19 Give n influenza virus vaccine, inactivated 02/08/18 Give n influenza virus vaccine, inactivated 06/08/17 Jaitnder rded influenza virus vaccine, inactivated 02/25/16 Give n influenza virus vaccine, inactivated 03/19/15 Give n influenza virus vaccine, inactivated 02/18/14 Give n influenza virus vaccine, inactivated 03/26/13 Give n influenza virus vaccine, inactivated 2 02/20/12 Gi precious influenza virus vaccine, inactivated 04/23/08 Give n SARS-CoV-2 mRNA (aewrqtp-vdsq-lbjbk) vax 12/14/21 Given SARS-CoV-2 mRNA (xqibczs-fcid-tslks) vax 5/10/22 Given SARS-CoV-2 (COVID-19) mRNA BNT-162b2 vac 03/23/21 [...] Refills, Maintenance, 05/26/22 19:48:00 EST, [facility], 154.8, cm, 05/25/22 13:21:00 EST, Height, 56, [...] Refills, Maintenance, 07/21/22 6:46:00 EDT, [facility], 90, TAKE 1 TABLET BY MOUTH TWICE [...] tablet, 0 Refills, Maintenance, 07/11/22 15:10:00 EST, [facility]/pharmacy #0957, Partial fill upon patient [...] need 99 months Please fax to [facility], [phone],... Start Date: 06/30/17 Status: Ordered CPAP Equipment See Instructions, # 1 each, Refills 12, Tot. Refills 12, Maintenance, BiPAP supplies: Mask, tubing,filters, headgear, chin strap, heated water chamber Dx: ELSA G47.33 Length of need 99 months Please fax to [facility] fax # [phone], 07/02/20 14:50:0... Start Date: 07/02/20 Status: Ordered cyanocobalamin 500 mcg oral tablet 1 tablet = 500 mcg, By Mouth, Daily, on empty stomach, # 90 tablet, 3 Refills, Maintenance, 03/26/21 20:06:00 EST, Tablet, [facility]/pharmacy #0957, Partial fill upon patient request if the prescription isfor a schedule II opioid drug., 154.8, cm, 03/23/21... Start Date: 03/26/21 Status: Ordered Flovent HFA 220 mcg/inh inhalation aerosol 2 puffs, Inhalation, 2 times a day, AND THROAT AFTER EACH USE., # 12 each, 11 Refills, [facility]8230, 154.8, cm, 09/14/21 9:50:00 EDT, Height, 56, kg, 12/09/20 9:16:00 EDT, Dry Weight Start Date: 11/17/21 Status: Ordered fluticasone 50 mcg/inh nasal spray See Instructions, USE 1 SPRAY IN EACH NOSTRIL DAILY, # 48 mL, 11 Refills, [facility], 90, USE 1 SPRAY IN EACH NOSTRIL DAILY, 154.8, cm, 09/14/21 9:50:00 EDT, Height, 56, kg, 12/09/20 9:16:00 EDT, Dry Weight Start Date: 11/15/21 Status: Ordered lisinopril 10 mg oral tablet 1, tablet, By Mouth, Daily, # 90 tablet, Refills 3, Route to Pharmacy Electronically, [facility] ST[facility] 81516, 154.8, cm, 09/14/21 9:50:00 EDT, Height, 56, kg, 12/09/20 9:16:00 EDT, Dry Weight Start Date: 12/07/21 Status: Ordered melatonin 3 mg oral tablet 2 tablet = 6 mg, By Mouth, Daily at bedtime, PRN Insomnia, # 60 tablet, 2 Refills, Maintenance, 08/04/22 12:21:00 EDT, [facility]/pharmacy #0957, Partial fill upon [...] each, Refills 3, Tot. Refills 3, Maintenance, [place] Ensure 1 can TID. Dx: C34.90, R63.4, 03/29/21 15:29:00 EST, Supply Start Date: 03/29/21 Status: Ordered omeprazole 20 mg oral enteric coated capsule 1 capsule = 20 mg, By Mouth, Daily, # 90 capsule, 0 Refills, Maintenance, 08/01/22 14:52:00 EDT, ECCapsule, [facility]/pharmacy #0957, Partial fill upon patient [...] each, 2 Refills, Maintenance, 07/21/22 6:46:00 EDT, [facility] 73462, 154, cm, 06/22/22 15:01:00 EST, Height, 56, [...] Clubbing Confirmed Active Drug abuse: Suboxone via [facility] Confirmed Active Esophageal reflux (GERD) Confirmed 05/09/12 Active JASON (generalized anxiety disorder) Confirmed Active HPV: Positive in 07/15; 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, negative in 10/16 Confirmed Active Hypertension Confirmed 08/23/10 Active Lung cancer Confirmed Active Lung nodules Confirmed Active Opioid use disorder Confirmed Active Osteoporosis Confirmed Active Pain in finger of right hand Confirmed Active Palpitations Confirmed Active *[phone] Business Services Administrator Sandra Rob Confirmed Active Pelvic mass Confirmed [...] Care Team Personnel Name: Mavis Allen Position: [facility] PCO Associate Professional Member Role: PCP Address: Address: [address] [place] [address]. [address] [place] [address]- Care Team Related Persons Name: JOSELIN SCHMIDT Address: home [address] [place] [address] Name: ANALISA ALYSE Address: home [address] [place] [id number] Name: NO, ONE AT THIS TIME
--- OUTSIDE RECORDS SUMMARY | 2022-12-26 10:35 | XMS_ITS | Continuity of Care Document ---
Author Name Unknown Organization [facility] Address [address] [place] [address]- Care Team Providers Care Computer Systems Administrator Name Role Phone Divina MARINELLI, Adalberto Reeder Primary Care Physician [facility]counter [facility] Date[facility]s): 02/05/20 - 03/06/[address] [address]- [facility] Allergies, Adverse Reactions, Alerts Substance Reaction Severity Status Zoloft O/E - Parkinsonian tremor Ac tive Other Environmental Allergy 1 Active 1ELASTIC Immunizations Given and Recorded Vaccine Date Status Refusal Reason Zoster Vaccine Live 02/23/20 Recorded zoster vaccine, inactivated 1 02/23/20 Recorded [...] influenza virus vaccine, inactivated 04/23/08 Give n Influenza Virus Vaccine (oldterm) 02/23/20 Recorde d [...] 1 Refills, Maintenance, 07/31/19 11:08:00 EDT, Tablet, [facility]/pharmacy #0957, 154.9, cm, 07/04/19 9:38:00 EST, [...] 11 Refills, Maintenance, 02/18/20 9:43:00 EDT, Tablet, [facility]/pharmacy #0957, 1 tablet By Mouth 2 [...] 02/18/20 9:42:00 EDT, Route to Pharmacy Electronically, [facility]/pharmacy #0957, 154.9, cm, 12/30/19 11:15:00 EDT, Height, 55.3, kg, 04/19/19 8:36:00 EST, Dry Weight Start Date: 02/18/20 Status: Ordered cetirizine 10 mg oral tablet 1 tablet = 10 mg, By Mouth, Daily, PRN Other, PRN allergies, # 30 tablet, 11 Refills, Maintenance, 02/18/20 9:43:00 EDT, Tablet, [facility]/pharmacy #0957, 154.9, cm, 12/30/19 11:15:00 EDT, Height, 55.3, kg, 04/19/19 8:36:00 EST, Dry Weight Start Date: 02/18/20 Status: Ordered chantix 1mg tablet 1 tablet = 1 mg, By Mouth, 2 times a day, after meals, to begin after completing starter pack, # 1 pack/packet, 3 Refills, Maintenance, 02/18/20 9:41:00 EDT, Tablet, [facility]/pharmacy #0957, 154.9, cm, 12/30/19 11:15:00 EDT, Height, 55.3, kg, 04/19/19 8:36... Start Date: 02/18/20 Status: Ordered clonazePAM 1 mg oral tablet TAKE 1 TABLET BY MOUTH 3 TIMES A DAY Start Date: 10/20/17 Status: Ordered clonazePAM 1 mg oral tablet 1 tablet = 1 mg, By Mouth, 3 times a day, Please fax to [facility] [address] [phone], # 90 tablet, 2 Refills, Maintenance, 09/17/18 12:46:43 EDT, Tablet Start Date: 09/17/18 Status: Ordered CPAP Equipment See Instructions, # 1 units, Refills 12, Tot. Refills 12, Maintenance, BiPAP supplies: Mask, tubing, filters, headgear, chin strap, heated water chamber Dx: ELSA G47.33 Length of need 99 months Pleasefax to [facility], [phone], 09/04/18 15:13:48 EDT, Co... Start Date: 09/04/18 Status: Ordered CPAP Equipment See Instructions, # 1 units, Refills 12, Tot. Refills 12, Maintenance, BIPAP supplies: Mask, tubing, filters, headgear, chin strap, water chamber 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) Lengthof need 99 months Please fax to [facility], [phone],... Start Date: 06/30/17 Status: Ordered diphenhydrAMINE 25 [...] 11 Refills, Soft Stop, 02/18/20 9:42:00 EDT, [facility]/pharmacy #0957, 154.9, cm, 12/30/19 11:15:00 EDT, Height, 55.3, kg, 04/19/19 8:36:00 EST, Dry Weight Start Date: 02/18/20 Status: Ordered lisinopril 10 mg oral tablet 10 mg, 1, tablet, By Mouth, Daily, # 30 tablet, Refills 11, Tot. Refills 11, Maintenance, 02/18/20 9:43:00 EDT, Route to Pharmacy Electronically, [facility]/pharmacy #0957, 154.9, cm, 12/30/19 11:15:00 EDT,Height, [...] Refills, Maintenance, 02/18/20 9:43:00 EDT, EC Capsule, [facility]/pharmacy #0957, 154.9, cm, 12/30/19 11:15:00 EDT, Height, 55.3, kg, 04/19/19 8:36:00 EST, Dry Weight Start Date: 02/18/20 Status: Ordered ProAir HFA 90 mcg/inh inhalation aerosol with adapter 2, puffs, Inhalation, 4 times a day, PRN, # 1 each, Refills 11, Tot. Refills 11, Maintenance, 02/18/20 9:43:00 EDT, Route to Pharmacy Electronically, [id number], [facility]/pharmacy #0957, 154.9, cm, 12/30/19 11:15:00 EDT, Height, 5... Start Date: 02/18/20 Stop Date: 02/12/21 Status: Ordered Stiolto Respimat 60 ACT 2.5 mcg-2.5 mcg/inh inhalation aerosol 2 puffs, Inhalation, Every 24 hours, to replace tiotropium, # 4 Gm, 11 Refills, Maintenance, 02/18/20 9:43:00 EDT, Aerosol, [facility]/pharmacy #0957, 154.9, cm, 12/30/19 11:15:00 EDT, [...] 1 Refills, Maintenance, 09/18/19 8:59:00 EDT, Tablet, [facility]/pharmacy #0957, 154.9, cm, 08/22/19 15:10:00 EDT, Height, 55.3, kg, 04/19/19 8:36:00EST, Dry Weight Start Date: 09/18/19 Status: Ordered Vitamin B2 100 mg oral tablet 2 tablet = 200 mg, By Mouth, 2 times a day, # 100 tablet, 11 Refills, Maintenance, 02/18/20 9:43:00EDT, [facility]/pharmacy #0957, 154.9, cm, 12/30/19 11:15:00 EDT, Height, 55.3, kg, 04/19/19 8:36:00 EST, Dry Weight Start Date: 02/18/20 Status: Ordered Problem List Condition Effective Dates Status Health Status Inform ant Age at leaving school - ged(Confirmed) Active ASCUS(Confirmed) Active 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 Sleep Report(Confirmed) 05/25/11 Active Hep C: Cleared without treatment(Confirmed) Active Clubbing(Confirmed) Active Drug abuse: Suboxone via [facility](Confirmed) Active Esophageal reflux (GERD)(Confirmed) 05/09/12 Active [...]
--- OUTSIDE RECORDS SUMMARY | 2022-12-26 10:35 | XMS_ITS | Continuity of Care Document ---
Author Name Unknown Organization [facility] Address [address] [place] [address]- Care Team Providers Care Cryptologic Supervisor Name Role Phone Divina MARINELLI, Adalberto Reeder Primary Care Physician [facility]counter [facility] Date(s): 12/23/21 - 01/22/[address] [address]- Allergies, Adverse Reactions, Alerts Substance Reaction Severity Status Zoloft O/E - Parkinsonian tremor Ac tive Rubber Active Other Environmental Allergy 1 Active 1ELASTIC Immunizations Given and Recorded Vaccine Date Status Refusal Reason SARS-CoV-2 mRNA (juojzfc-gklk-wpuxk) vax 12/14/21 Given SARS-CoV-2 mRNA (lzegoep-ocxu-hduke) vax 09/14/21 Given SARS-CoV-2 (COVID-19) mRNA BNT-162b2 [...] 3 Refills, Maintenance, 09/14/21 10:11:00 EDT,Tablet, [facility]/pharmacy #0993, Partial fill upon patient request if the [...] # 180 tablet, 1 Refills, [facility], 90, TAKE 1 TABLET BY MOUTH TWICE [...] 04/15/22 8:28:00 EST, 12/14/21 8:27:00 EDT, [facility]/pharmacy #0957, 154.8, cm, 09/14/21 9:50:00 [...] 1 Refills, Maintenance, 11/26/21 15:32:00 EDT, [facility]/pharmacy #0957, Partial fill upon patient reque... Start Date: 11/26/21 Status: Ordered CPAP Equipment See Instructions, # 1 units, Refills 12, Tot. Refills 12, Maintenance, BIPAP supplies: Mask, tubing, filters, headgear, chin strap, water chamber 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) Lengthof need 99 months Please fax to [facility], [phone],... Start Date: 06/30/17 Status: Ordered CPAP Equipment See Instructions, # 1 each, Refills 12, Tot. Refills 12, Maintenance, BiPAP supplies: Mask, tubing,filters, headgear, chin strap, heated water chamber Dx: ELSA G47.33 Length of need 99 months Please fax to [facility] fax # [phone], 07/02/20 14:50:0... Start Date: 07/02/20 Status: Ordered cyanocobalamin 500 mcg oral tablet 1 tablet = 500 mcg, By Mouth, Daily, on empty stomach, # 90 tablet, 3 Refills, Maintenance, 03/26/21 20:06:00 EST, Tablet, [facility]/pharmacy #0957, Partial fill upon patient request if the prescription isfor a schedule II opioid drug., 154.8, cm, 03/23/21... Start Date: 03/26/21 Status: Ordered Eucerin Unscented topical lotion See Instructions, apply to skin daily, dispense 1 jar, # 1 each, 11 Refills, Maintenance, 09/25/19 16:37:00 EDT, [facility]/pharmacy #0957, apply to skin daily, [...] EACH USE., # 12 each, 11 Refills, [facility] ST[facility] 45301, 154.8, cm, 09/14/21 9:50:00 EDT, Height, 56, kg, 12/09/20 9:16:00 EDT, Dry Weight Start Date: 11/17/21 Status: Ordered fluticasone 50 mcg/inh nasal spray See Instructions, USE 1 SPRAY IN EACH NOSTRIL DAILY, # 48 mL, 11 Refills, [facility] 8[facility]82, 90, USE 1 SPRAY IN EACH NOSTRIL DAILY, 154.8, cm, 09/14/21 9:50:00 EDT, Height, 56, kg, 12/09/20 9:16:00 EDT, Dry Weight Start Date: 11/15/21 Status: Ordered Inderal LA 80 mg oral capsule, extended release 80 mg, 1, capsule, By Mouth, Daily, # 30 capsule, Refills 3, Tot. Refills 3, Maintenance, 06/23/20 10:00:00 EST, Route to Pharmacy Electronically, [facility]/pharmacy #0957, To replace Topamax. Partial fillupon patient request if the prescription is for a... Start Date: 06/23/20 Status: Ordered lisinopril 10 mg oral tablet 1, tablet, By Mouth, Daily, # 90 tablet, Refills 3, Route to Pharmacy Electronically, [facility] STORE 33785, 154.8, cm, 09/14/21 9:50:00 EDT, Height, 56, kg, 12/09/20 9:16:00 EDT, Dry Weight Start Date: 12/07/21 Status: Ordered melatonin 3 mg oral tablet 1 tablet = 3 mg, By Mouth, Daily at bedtime, PRN Insomnia, # 60 tablet, 11 Refills, Maintenance, 03/29/21 21:06:00 EST, [facility]/pharmacy #0957, Partial fill upon patient request if the prescription is for a schedule II opioid drug., 154.8, cm, 03/23/21 11... Start Date: 03/29/21 Status: Ordered nicotine 2 mg oral transmucosal lozenge 1 lozenge = 2 mg, By Mouth, Every 2 hours, # 72 each, 11 Refills, Maintenance, 10/13/20 8:35:00 EDT, [facility]/pharmacy #0957, Partial fill [...] each, Refills 3, Tot. Refills 3, Maintenance, [facility] Ensure 1 can TID. Dx: C34.90, R63.4, 03/29/21 15:29:00 EST, Supply Start Date: 03/29/21 Status: Ordered omeprazole 20 mg oral enteric coated capsule 1 capsule = 20 mg, By Mouth, Daily, # 90 capsule, 3 Refills, Maintenance, 07/08/21 15:23:00 EST, ECCapsule, [facility]/pharmacy #0957, Partial fill upon patient request if the prescription is for a schedule II opioid drug., 154.8, cm, 06/29/21 9:00:00 EST,... Start Date: 07/08/21 Status: Ordered Stiolto Respimat 60 ACT 2.5 mcg-2.5 mcg/inh inhalation aerosol 2 puffs, Inhalation, Every 24 hours, TO REPLACE TIOTROPIUM., # 4 mL, 11 Refills, [facility] 47041, 154.8, cm, 09/14/21 9:50:00 EDT, Height, 56, kg, 12/09/20 9:16:00 EDT, Dry Weight Start Date: 11/17/21 Status: Ordered Ventolin HFA 108 mcg/inh inhalation aerosol with adapter 2 puffs, Inhalation, 4 times a day, PRN NEEDED FOR WHEEZING, # 18 each, 5 Refills, [facility] 21983, 154.8, cm, 09/14/21 9:50:00 EDT, Height, 56, [...] Team Personnel Name: Adalberto Murcia MD Address: [address] [place] [address]-
--- OUTSIDE RECORDS SUMMARY | 2022-12-26 10:35 | XMS_ITS | Continuity of Care Document ---
Author Name Unknown Organization [facility] ter Address [address] [place] [address]- Care Team Providers Care Software Support Specialist Name Role Phone Adalberto Murcia MD Primary Care Physician [facility] Date(s): 02/25/19 - 05/17/[address] [address]- [place] Attending Physician: Adalberto Murcia MD Admitting Physician: [...] Given influ virus vac, H1N1, inactive(oldterm) 8 1/26/10 Given 1Admin Note: vis 03/25/08 2Admin Note: [...] 03/19/19 10:53:39 EST, Route to Pharmacy Electronically, [id number], [facility]/pharmacy #1026 Start Date: 03/19/19 Status: Ordered [...] 3 times a day, Please fax to [facility] [phone], # 90 tablet, 2 Refills, Maintenance, 09/17/18 12:46:43 EDT, Tablet Start Date: 09/17/18 Status: Ordered CPAP Equipment See Instructions, # 1 units, Refills 12, Tot. Refills 12, Maintenance, BiPAP supplies: Mask, tubing, filters, headgear, chin strap, heated water chamber Dx: ELSA G47.33 Length of need 99 months Pleasefax to [facility], [phone], 09/04/18 15:13:48 EDT, Co... Start Date: 09/04/18 Status: Ordered CPAP Equipment See Instructions, # 1 units, Refills 12, Tot. Refills 12, Maintenance, BIPAP supplies: Mask, tubing, filters, headgear, chin strap, water chamber Dx: Cheko león respiration, severe (786.04) Lengthof need 99 months Please fax to [facility], [phone],... Start Date: 06/30/17 Status: Ordered diphenhydrAMINE 25 [...] DAY [place] AND THROAT AFTER EACH USE, [facility]/pharmacy #1026 Start Date: 03/15/19 Status: Ordered gabapentin 300 mg oral capsule 600 mg, 2, capsule, By Mouth, Daily at bedtime, # 60 capsule, Refills 11, Tot. Refills 11, Maintenance, 08/28/18 10:07:25 EDT, Route to Pharmacy Electronically, [id number], [facility]/pharmacy #1026 Start Date: 08/28/18 Status: Ordered ibuprofen 600 mg oral tablet 600 mg, 1, tablet, By Mouth, 3 times a day, PRN, with food, # 270 tablet, Refills 11, Tot. Refills 11, Maintenance, as needed for pain, 06/27/17 17:45:19, Route to Pharmacy Electronically, [id number], [facility]/pharmacy #1026 Start Date: 06/27/17 Status: Ordered lisinopril 10 mg oral tablet 10 mg, 1, tablet, By Mouth, Daily, # 30 tablet, Refills 11, Tot. Refills 11, Maintenance, 07/05/18 14:09:24 EST, Route to Pharmacy Electronically, [id number], [facility]/pharmacy #1026 Start Date: 07/05/18 Status: Ordered NuLYTELY [...] 07/23/18 12:48:24 EDT, Route to Pharmacy Electronically, [id number], [facility]/pharmacy #1026 Start Date: 07/23/18 Stop Date: 07/18/19 [...]
--- OUTSIDE RECORDS SUMMARY | 2022-12-26 10:35 | XMS_ITS | Continuity of Care Document ---
Author Name Unknown Organization [facility] Address [address] [place] [address]- Care Team Providers Care Fish Stringer Assembler Name Role Phone Gideon Nice FISHER HOOP NET, Jennyfer Primary Care Physician Encounter [facility] Date(s): 05/13/22 - 06/12/22 [facility] [address] [place], [place] [address] Attending Physician: Angelina Mendoza Admitting Physician: Angelina [...] vaccine, inactivated 04/23/08 Give n SARS-CoV-2 mRNA (wjqcjlm-utob-epdbw) vax 12/14/21 Given SARS-CoV-2 mRNA (tcbfeyw-dewv-npbci) vax 09/14/21 Given SARS-CoV-2 (COVID-19) mRNA BNT-162b2 [...] Refills, Maintenance, 05/26/22 19:48:00 EST, [facility], 154.8, cm, 05/25/22 13:21:00 EST, Height, 56, [...] meals, # 180 tablet, 1 Refills, [facility] STORE 81728, 90, TAKE 1 TABLET BY MOUTH TWICE [...] 0 Refills, Maintenance, 05/12/22 8:22:00 EST, [facility]/pharmacy #0957, Partial [...] need 99 months Please fax to [facility], [phone],... Start Date: 06/30/17 Status: Ordered CPAP Equipment See Instructions, # 1 each, Refills 12, Tot. Refills 12, Maintenance, BiPAP supplies: Mask, tubing,filters, headgear, chin strap, heated water chamber Dx: ELSA G47.33 Length of need 99 months Please fax to [facility] fax # [phone], 07/02/20 14:50:0... Start Date: 07/02/20 Status: Ordered [...] # 12 each, 11 Refills, [facility], 154.8, cm, 09/14/21 9:50:00 EDT, Height, 56, kg, 12/09/20 9:16:00 EDT, Dry Weight Start Date: 11/17/21 Status: Ordered fluticasone 50 mcg/inh nasal spray See Instructions, USE 1 SPRAY IN EACH NOSTRIL DAILY, # 48 mL, 11 Refills, [facility] STORE 06962, 90, USE 1 SPRAY IN EACH NOSTRIL DAILY, 154.8, cm, 09/14/21 9:50:00 EDT, Height, 56, kg, 12/09/20 9:16:00 EDT, Dry Weight Start Date: 11/15/21 Status: Ordered Inderal LA 80 mg oral capsule, extended release 80 mg, 1, capsule, By Mouth, Daily, # 30 capsule, Refills 3, Tot. Refills 3, Maintenance, 06/23/20 10:00:00 EST, Route to Pharmacy Electronically, [facility]/pharmacy #0957, To replace Topamax. Partial fillupon patient request if the prescription is for a... Start Date: 06/23/20 Status: Ordered lisinopril 10 mg oral tablet 1, tablet, By Mouth, Daily, # 90 tablet, Refills 3, Route to Pharmacy Electronically, [facility], 154.8, cm, 09/14/21 9:50:00 EDT, Height, 56, [...] each, Refills 3, Tot. Refills 3, Maintenance, [facility]ure 1 can TID. Dx: C34.90, R63.4, 03/29/21 15:29:00 EST, Supply Start Date: 03/29/21 Status: Ordered omeprazole 20 mg oral enteric coated capsule 1 capsule = 20 mg, By Mouth, Daily, # 90 capsule, 3 Refills, Maintenance, 07/08/21 15:23:00 EST, ECCapsule, [facility]/pharmacy #0957, Partial fill upon patient request if the prescription is for a schedule II opioid drug., 154.8, cm, 06/29/21 9:00:00 EST,... Start Date: 07/08/21 Status: Ordered Stiolto Respimat 60 ACT 2.5 mcg-2.5 mcg/inh inhalation aerosol 2 puffs, Inhalation, Every 24 hours, TO REPLACE TIOTROPIUM., # 4 mL, 11 Refills, [facility] 95486, 154.8, cm, 09/14/21 9:50:00 EDT, Height, 56, kg, 12/09/20 9:16:00 EDT, Dry Weight Start Date: 11/17/21 Status: Ordered Ventolin HFA 108 mcg/inh inhalation aerosol with adapter 2 puffs, Inhalation, 4 times a day, PRN NEEDED FOR WHEEZING, # 18 each, 5 Refills, [facility] 71732, 154.8, cm, 09/14/21 9:50:00 EDT, Height, 56, [...] Clubbing Confirmed Active Drug abuse: Suboxone via [facility] Confirmed Active Esophageal reflux (GERD) Confirmed 05/09/12 Active JASON (generalized anxiety disorder) Confirmed Active HPV: Positive in 07/15; 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, negative in 10/16 Confirmed Active Hypertension Confirmed 08/23/10 Active Lung cancer Confirmed Active Lung nodules Confirmed Active Opioid use disorder Confirmed Active Osteoporosis Confirmed Active Pain in finger of right hand Confirmed Active Palpitations Confirmed Active *[id number] paige Escamilla Confirmed Active Pelvic mass Confirmed [...] Team Personnel Name: Jennyfer Stokes NP Position: [facility] PCO Associate Professional Member Role: PCP Address: Address: [address] [place] [address]- Care Team Related Persons Name: JOSELIN SCHMIDT Address: home [address] [place] [address] Name: ALYSE HAUSER Address: home [address] [id number] Name: NO, ONE AT THIS TIME
--- OUTSIDE RECORDS SUMMARY | 2022-12-26 10:35 | XMS_ITS | Continuity of Care Document ---
Author Name Unknown Organization [facility] Address [address] [place] [address]- Care Team Providers Care Roller Printer Name Role Phone Divina MARINELLI, Adalberto Reeder Primary Care Physician [facility] Date[facility]): 09/02/21 - 10/02/[address] [address]- Allergies, Adverse Reactions, Alerts Substance Reaction Severity Status Zoloft O/E - Parkinsonian tremor Ac tive Rubber Active Other Environmental Allergy 1 Active 1ELASTIC Immunizations Given and Recorded Vaccine Date Status Refusal Reason SARS-CoV-2 mRNA (aszkxyr-munl-ykekr) vax 09/14/21 Given SARS-CoV-2 (COVID-19) mRNA BNT-162b2 [...] 17:04:00 EDT, Aerosol, Route to Pharmacy Electronically, [id number]... Start Date: 08/03/20 Status: Ordered alendronate 70 mg oral tablet 1 tablet = 70 mg, By Mouth, Every week, # 12 tablet, 3 Refills, Maintenance, 09/14/21 10:11:00 EDT,Tablet, [facility]/pharmacy #[id number], Partial fill upon patient request if the [...] 11 Refills, Maintenance, 11/05/20 17:11:00 EDT, Tablet, [facility]/pharmacy #0957, 1 tablet By Mouth 2 [...] PACK, # 56 tablet, 3 Refills, Acute, [facility] STORE 18197, 154.9, cm, 06/11/20 9:48:00 EST, Height, 58, kg, 06/05/20 12:02:00 EST, Dry Weight Start Date: 08/03/20 Status: Ordered clonazePAM 0.25 mg oral tablet, disintegrating See Instructions, 1 tablet By Mouth 3-4 times a day. Mass Pat Reviewed. Please fill on/after 10/06/21, # 100 tablet, 1 Refills, Maintenance, 09/20/21 10:48:00 EDT, [facility]/pharmacy #0957, Partial fill uponpatient request if the prescription is for a sched... Start Date: 09/20/21 Status: Ordered CPAP Equipment See Instructions, # 1 units, Refills 12, Tot. Refills 12, Maintenance, BIPAP supplies: Mask, tubing, filters, headgear, chin strap, water chamber 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) Lengthof need 99 months Please fax to [facility], [phone],... Start Date: 06/30/17 Status: Ordered CPAP Equipment See Instructions, # 1 each, Refills 12, Tot. Refills 12, Maintenance, BiPAP supplies: Mask, tubing,filters, headgear, chin strap, heated water chamber Dx: ELSA G47.33 Length of need 99 months Please fax to [facility] fax # [phone], 07/02/20 14:50:0... Start Date: 07/02/20 Status: Ordered [...] 11 Refills, Soft Stop, 11/05/20 17:11:00 EDT, [facility]/pharmacy #0957, 154.9, cm, 10/13/20 7:56:00 EDT, Height, 58, kg, 06/05/20 12:02:00 EST, Dry Weight Start Date: 11/05/20 Status: Ordered Inderal LA 80 mg oral capsule, extended release 80 mg, 1, capsule, By Mouth, Daily, # 30 capsule, Refills 3, Tot. Refills 3, Maintenance, 06/23/20 10:00:00 EST, Route to Pharmacy Electronically, [facility]/pharmacy #0957, To replace Topamax. Partial fillupon [...] each, Refills 3, Tot. Refills 3, Maintenance, [facility] Ensure 1 can TID. Dx: C34.90, R63.4, 03/29/21 15:29:00 EST, Supply Start Date: 03/29/21 Status: Ordered omeprazole 20 mg oral enteric coated capsule 1 capsule = 20 mg, By Mouth, Daily, # 90 capsule, 3 Refills, Maintenance, 07/08/21 15:23:00 EST, ECCapsule, [facility]/pharmacy #0957, Partial fill upon patient request if the prescription is for a schedule II opioid drug., 154.8, cm, 06/29/21 9:00:00 EST,... Start Date: 07/08/21 Status: Ordered Stiolto Respimat 60 ACT 2.5 mcg-2.5 mcg/inh inhalation aerosol 2 puffs, Inhalation, Every 24 hours, to replace tiotropium, # 4 Gm, 11 Refills, Maintenance, 11/05/20 17:11:00 EDT, Aerosol, [facility]/pharmacy #0957, 154.9, cm, 10/13/20 7:56:00 EDT, Height, 58, kg, 06/05/20 12:02:00 EST, Dry Weight Start Date: 11/05/20 Status: Ordered Ventolin HFA 108 mcg/inh inhalation aerosol with adapter 2 puffs, Inhalation, 4 times a day, PRN for wheezing, # 18 Gm, 11 Refills, Maintenance, 11/12/20 9:46:00 EDT, Aerosol, [facility]/pharmacy #0957, Partial fill upon patient request [...] Clubbing(Confirmed) Active Drug abuse: Suboxone via [facility](Confirmed) Active Esophageal reflux (GERD)(Confirmed) 05/09/12 Active [...]
--- OUTSIDE RECORDS SUMMARY | 2022-12-26 10:35 | XMS_ITS | Continuity of Care Document ---
Author Name Unknown Organization [facility] Address [address] [place] [address]- Care Team Providers Care Rn Cardiac Name Role Phone Divina MARINELLI, Adalberto Reeder Primary Care Physician [facility] Date[facility]): 04/17/19 - 04/27/19 [facility] [address] [place] [address] [facility] Attending Physician: Angelina Mendoza Admitting Physician: Angelina [...] 03/19/19 10:53:39 EST, Route to Pharmacy Electronically, [id number], [facility]/pharmacy #1026 Start Date: 03/19/19 Status: [...] 3 times a day, Please fax to [facility] [phone], # 90 tablet, 2 Refills, Maintenance, 09/17/18 12:46:43 EDT, Tablet Start Date: 09/17/18 Status: Ordered CPAP Equipment See Instructions, # 1 units, Refills 12, Tot. Refills 12, Maintenance, BiPAP supplies: Mask, tubing, filters, headgear, chin strap, heated water chamber Dx: ELSA G47.33 Length of need 99 months Pleasefax to [facility], [phone], 09/04/18 15:13:48 EDT, Co... Start Date: 09/04/18 Status: Ordered CPAP Equipment See Instructions, # 1 units, Refills 12, Tot. Refills 12, Maintenance, BIPAP supplies: Mask, tubing, filters, headgear, chin strap, water chamber 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) Lengthof need 99 months Please fax to [facility], [phone],... Start Date: 06/30/17 Status: Ordered diphenhydrAMINE 25 [...] DAY [place] AND THROAT AFTER EACH USE, [facility]/pharmacy #1026 Start Date: 03/15/19 Status: Ordered gabapentin 300 mg oral capsule 600 mg, 2, capsule, By Mouth, Daily at bedtime, # 60 capsule, Refills 11, Tot. Refills 11, Maintenance, 08/28/18 10:07:25 EDT, Route to Pharmacy Electronically, [id number], [facility]/pharmacy #1026 Start Date: 08/28/18 Status: Ordered ibuprofen 600 mg oral tablet 600 mg, 1, tablet, By Mouth, 3 times a day, PRN, with food, # 270 tablet, Refills 11, Tot. Refills 11, Maintenance, as needed for pain, 06/27/17 17:45:19, Route to Pharmacy Electronically, [id number], [facility]/pharmacy #1026 Start Date: 06/27/17 Status: Ordered lisinopril 10 mg oral tablet 10 mg, 1, tablet, By Mouth, Daily, # 30 tablet, Refills 11, Tot. Refills 11, Maintenance, 07/05/18 14:09:24 EST, Route to Pharmacy Electronically, [id number], [facility]/pharmacy #1026 Start Date: 07/05/18 Status: Ordered [...] 07/23/18 12:48:24 EDT, Route to Pharmacy Electronically, [id number], [facility]/pharmacy #1026 Start Date: 07/23/18 Stop Date: [...]
--- OUTSIDE RECORDS SUMMARY | 2022-12-26 10:35 | XMS_ITS | Continuity of Care Document ---
Author Name Unknown Organization [facility] Address [address] [place] [address] Kostas gupta, [address] [place] [address]- Care Team Providers Care Biomedical Engineering Technician Name Role Phone Mavis Allen Primary Care Physician [facility] Date[facility]s): 11/21/22 - 12/21/22 [facility] [address] [place] [address] Drive, [address] [place] [address]- Allergies, Adverse Reactions, Alerts Substance Reaction Severity Status Zoloft O/E - Parkinsonian tremor Ac tive Rubber Active Other Environmental Allergy 1 Active 1ELASTIC Immunizations Given and Recorded Vaccine Date Status Refusal Reason [id number] 12y+ bivalent booster vax 05/11/22 Recorded influenza [...] vaccine, inactivated 04/23/08 Give n SARS-CoV-2 mRNA (lsjjcwd-smrp-gxfns) vax 12/14/21 Given SARS-CoV-2 mRNA (rwnalsk-wxrt-gdpmi) vax 09/14/21 Given SARS-CoV-2 (COVID-19) mRNA BNT-162b2 [...] 1 Refills, Maintenance, 11/18/22 15:43:00 EDT, Tablet, [facility]/pharmacy #0957, Partial fill upon [...] 12/15/22 16:24:00 EDT, Route to Pharmacy Electronically, [facility]/pharmacy #0957, Partial fill upon patient request if the p... Start Date: 12/15/22 Status: Ordered calcium-vitamin D 600 mg-400 intl units oral tablet 1 tablet, By Mouth, 2 times a day with meals, # 180 tablet, 0 Refills, Maintenance, 12/21/22 11:39:00 EDT, [facility] STORE 56146, 90, TAKE 1 TABLET BY MOUTH TWICE [...] EACH USE., # 12 each, 11 Refills, [facility] STORE 80592, 154.8, cm, 09/14/21 9:50:00 EDT, Height, 56, kg, 12/09/20 9:16:00 EDT, Dry Weight Start Date: 11/17/21 Status: Ordered fluticasone 50 mcg/inh nasal spray See Instructions, USE 1 SPRAY IN EACH NOSTRIL DAILY, # 48 mL, 11 Refills, [facility] STORE 21830, 90, USE 1 SPRAY IN EACH NOSTRIL DAILY, 154.8, cm, 09/14/21 9:50:00 EDT, Height, 56, kg, 12/09/20 9:16:00 EDT, Dry Weight Start Date: 11/15/21 Status: Ordered lidocaine-prilocaine 2.5%-2.5% topical cream 1 application, Topically, Once, apply thin layer over healed port site up to 60 minutes prior to port use, # 30 Gm, 1 Refills, Soft Stop, 12/08/22 16:31:00 EDT, Cream, [facility]/pharmacy #0957, Partial fill upon patient request if the prescription is for a... Start Date: 12/08/22 Status: Ordered lisinopril 10 mg oral tablet 1, tablet, By Mouth, Daily, # 90 tablet, Refills 3, Route to Pharmacy Electronically, [facility] STORE 45144, 154.8, cm, 09/14/21 9:50:00 EDT, Height, 56, kg, 12/09/20 9:16:00 EDT, Dry Weight Start Date: 12/07/21 Status: Ordered melatonin 3 mg oral tablet 2 tablet = 6 mg, By Mouth, Daily at bedtime, PRN Insomnia, # 60 tablet, 2 Refills, Maintenance, 08/04/22 12:21:00 EDT, [facility]/pharmacy #0957, Partial fill upon [...] 30 tablet, 2 Refills, Maintenance, 12/09/2315:31:00 EDT, [facility]/pharmacy #0957, Partial fill upon [...] 30 tablet, 1 Refills, Maintenance, 12/09/2315:31:00 EDT, [facility]/pharmacy #0957, Partial fill upon patient request if the prescription is for a schedule II opioid drug., 153.7, cm, 11/25/22 9:09:00... Start Date: 12/08/22 Status: Ordered Senna-Time 8.6 mg oral tablet 1 tablet = 8.6 mg, By Mouth, Daily at bedtime, PRN as needed for constipation, # 90 tablet, 0 Refills, Acute 12/16/23 16:26:00 EDT, 12/15/22 16:25:00 EDT, Tablet, [facility]/pharmacy #0957, Partial fill upon [...] Confirmed Active Papule of skin Confirmed Active *[id number] Ammunition Components Inspector Sandra Rob Confirmed Active Pelvic mass Confirmed [...] Associate Professional Member Role: PCP Address: Address: [address] [place] [address]. [address] [place] [address]- Name: Allyn Rhoades Position: S RN Member Role: Primary Care Nurse Name: Yoselin Gaxiola RN Position: [facility] Onco RN Member Role: Primary Care Nurse Name: Saumya Brown RN Position: [facility] RN Member Role: Primary Care Nurse Name: Praveen Sepulveda RN Position: [facility] RN Member Role: Primary Care Nurse Name: Marina Dumont RN Position: [facility] RN Member Role: Primary Care Nurse Name: Delmi Kelly RN Position: [facility] RN Member Role: Primary Care Nurse Care Team Related Persons Name: JOSELIN SCHMIDT Address: home [address] [place] [address] Name: ALYSE HAUSER Address: home [address] [place] [address] Name: NO, ONE AT THIS TIME
--- OUTSIDE RECORDS SUMMARY | 2022-12-26 10:35 | XMS_ITS | Continuity of Care Document ---
Author Name Unknown Organization [facility] ter Address [address] [place] [address]- Care Team Providers Care Education Associate Name Role Phone Mavis Allen Primary Care Physician [facility] Date[facility]s): 09/09/22 - 11/16/[address] [address] Attending Physician: Mavis Allen Admitting Physician: Mavis Allen Referring Physician: Mavis Allen Allergies, Adverse Reactions, Alerts Substance Reaction Severity Status Zoloft O/E - Parkinsonian tremor Ac tive Rubber Active Other Environmental Allergy 1 Active 1ELASTIC Immunizations Given and Recorded Vaccine Date Status Refusal Reason [id number] 12y+ bivalent booster vax 05/11/22 Recorded influenza [...] vaccine, inactivated 04/23/08 Give n SARS-CoV-2 mRNA (csfyytc-norm-rfptc) vax 12/14/21 Given SARS-CoV-2 mRNA (njluvzp-wbtf-tlawn) vax 09/14/21 Given SARS-CoV-2 (COVID-19) mRNA BNT-162b2 [...] tablet, 3 Refills, Maintenance, 05/26/22 19:48:00 EST, [facility] STORE 78666, 154.8, cm, 05/25/22 13:21:00 EST, Height, 56, kg, 12/09/20 9:16:00 EDT, Dry Weight Start Date: 05/26/22 Status: Ordered calcium-vitamin D 600 mg-400 intl units oral tablet 1 tablet, By Mouth, 2 times a day with meals, # 180 tablet, 0 Refills, Maintenance, 07/21/22 6:46:00 EDT, [facility] STORE 24384, 90, TAKE 1 TABLET BY MOUTH TWICE A DAY WITH FOOD, 154, cm, 06/22/22 15:01:00EST, Height, 56, kg, 12/09/20 9:16:00 EDT, Dry Weight Start Date: 07/21/22 Status: Ordered Flovent HFA 220 mcg/inh inhalation aerosol 2 puffs, Inhalation, 2 times a day, AND THROAT AFTER EACH USE., # 12 each, 11 Refills, [facility] STORE 36712, 154.8, cm, 09/14/21 9:50:00 EDT, Height, 56, kg, 12/09/20 9:16:00 EDT, Dry Weight Start Date: 11/17/21 Status: Ordered fluticasone 50 mcg/inh nasal spray See Instructions, USE 1 SPRAY IN EACH NOSTRIL DAILY, # 48 mL, 11 Refills, [facility] STORE 65327, 90, USE 1 SPRAY IN EACH NOSTRIL DAILY, 154.8, cm, 09/14/21 9:50:00 EDT, Height, 56, kg, 12/09/20 9:16:00 EDT, Dry Weight Start Date: 11/15/21 Status: Ordered lisinopril 10 mg oral tablet 1, tablet, By Mouth, Daily, # 90 tablet, Refills 3, Route to Pharmacy Electronically, [facility] STORE 85118, 154.8, cm, 09/14/21 9:50:00 EDT, Height, 56, kg, 12/09/20 9:16:00 EDT, Dry Weight Start Date: 12/07/21 Status: Ordered melatonin 3 mg oral tablet 2 tablet = 6 mg, By Mouth, Daily at bedtime, PRN Insomnia, # 60 tablet, 2 Refills, Maintenance, 08/04/22 12:21:00 EDT, [facility]/pharmacy #0957, Partial [...] 0 Refills, Maintenance, 08/01/22 14:52:00 EDT, ECCapsule, [facility]/pharmacy #0957, Partial [...] right hand Confirmed Active Palpitations Confirmed Active *[id number] Senior Firmware Engineer Sandra Rob Confirmed Active Pelvic mass [...] Allen Position: [facility] PCO Associate Professional Member Role: PCP Address: Address: [address] [place] [address]. [address] [place] [address]- Name: Allyn Rhoades Position: S RN Member [...] Persons Name: JOSELIN SCHMIDT Address: home [address] [place] [address] Name: ALYSE HAUSER Address: home [address] [place] [address] Name: NO, ONE AT THIS TIME
--- OUTSIDE RECORDS SUMMARY | 2022-12-26 10:35 | XMS_ITS | Continuity of Care Document ---
Author Name Unknown Organization [facility] Address [address] [place] [address]- Care Team Providers Care Traffic Coordinator Name Role Phone Divina MARINELLI, Adalberto Reeder Primary Care Physician [facility] Date[facility]s): 11/10/20 - 12/10/[address] [address]- Allergies, Adverse Reactions, Alerts Substance Reaction Severity [...] 17:04:00 EDT, Aerosol, Route to Pharmacy Electronically, [id number]... Start Date: 08/03/20 Status: Ordered BiPAP Machine [...] 56 tablet, 3 Refills, Acute, [facility], 154.9, cm, 06/11/20 9:48:00 EST, Height, 58, kg, 06/05/20 12:02:00 EST, Dry Weight Start Date: 08/03/20 Status: Ordered clonazePAM 1 mg oral tablet 1 tablet = 1 mg, By Mouth, 3 times a day, PRN Anxiety, Please dispense on/after 12/07/20, # 70 tablet, 0 Refills, Maintenance, 12/04/20 11:21:00 EDT, Tablet, [facility]/pharmacy #0957, 154.9, cm, 10/13/20 7:56:00 EDT, Height, 58, kg, 06/05/20 12:02:00 EST, Dry... Start Date: 12/04/20 Status: Ordered CPAP Equipment See Instructions, # 1 units, Refills 12, Tot. Refills 12, Maintenance, BIPAP supplies: Mask, tubing, filters, headgear, chin strap, water chamber 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) Lengthof need 99 months Please fax to [facility], [phone],... Start Date: 06/30/17 Status: Ordered CPAP Equipment See Instructions, # 1 each, Refills 12, Tot. Refills 12, Maintenance, BiPAP supplies: Mask, tubing,filters, headgear, chin strap, heated water chamber Dx: ELSA G47.33 Length of need 99 months Please fax to [facility] fax # [phone], 07/02/20 14:50:0... Start Date: 07/02/20 Status: Ordered Eucerin Unscented topical lotion See Instructions, apply to skin daily, dispense 1 jar, # 1 each, 11 Refills, Maintenance, 09/25/19 16:37:00 EDT, [facility]/pharmacy #0957, apply to skin daily, [...] Gm, 11 Refills, Maintenance, 11/05/20 17:11:00 EDT, [facility]/pharmacy #0957, 1 sprays Nasal Daily, 154.9, cm, 10/13/20 7:56:00 EDT, Height, 58, kg, 06/05/20 12:02:00 EST, Dry Weight Start Date: 11/05/20 Status: Ordered Flovent HFA 220 mcg/inh inhalation aerosol See Instructions, TAKE 2 PUFFS BY MOUTH TWICE A DAY RINSE MOUTH AND THROAT AFTER EACH USE, # 12 Unknown, 11 Refills, Soft Stop, 11/05/20 17:11:00 EDT, [facility]/pharmacy #0957, 154.9, cm, 10/13/20 7:56:00 EDT, Height, 58, kg, 06/05/20 12:02:00 EST, Dry Weight Start Date: 11/05/20 Status: Ordered Inderal LA 80 mg oral capsule, extended release 80 mg, 1, capsule, By Mouth, Daily, # 30 capsule, Refills 3, Tot. Refills 3, Maintenance, 06/23/20 10:00:00 EST, Route to Pharmacy Electronically, [facility]/pharmacy #0957, To replace Topamax. Partial fillupon patient request if the prescription is for a... Start Date: 06/23/20 Status: Ordered lisinopril 10 mg oral tablet 10 mg, 1, tablet, By Mouth, Daily, # 90 tablet, Refills 3, Tot. Refills 3, Maintenance, 09/28/20 13:15:00 EDT, Route to Pharmacy Electronically, [facility]/pharmacy #0957, 154.9, cm, 09/22/20 10:26:00 EDT, Height, 58, kg, 06/05/20 12:02:00 EST, Dry Weight Start Date: 09/28/20 Stop Date: 09/23/21 Status: Ordered nicotine 2 mg oral transmucosal lozenge 1 lozenge = 2 mg, By Mouth, Every 2 hours, # 72 each, 11 Refills, Maintenance, 10/13/20 8:35:00 EDT, [facility]/pharmacy #0957, Partial fill upon patient [...] 11 Refills, Maintenance, 11/05/20 17:11:00 EDT, Aerosol, [facility]/pharmacy #0957, 154.9, cm, 10/13/20 7:56:00 [...] Active Clubbing(Confirmed) Active Drug abuse: Suboxone via [facility](Confirmed) Active Esophageal reflux (GERD)(Confirmed) 05/09/12 Active [...]
--- OUTSIDE RECORDS SUMMARY | 2022-12-26 10:36 | XMS_ITS | Continuity of Care Document ---
Author Name Unknown Organization [facility] Address [address] [place] [address]- Care Team Providers Care Cathode Washer Name Role Phone Gideon Nice FINISHING SUPERVISOR PLASTIC SHEETS, Jennyfer Primary Care Physician [facility] 03/16/22 - 06/02/[address] [address]- Attending Physician: Lcui Mujica MD Admitting Physician: Luci Mujica MD Allergies, Adverse Reactions, [...] vaccine, inactivated 04/23/08 Give n SARS-CoV-2 mRNA (eascupy-ijpo-yodfj) vax 12/14/21 Given SARS-CoV-2 mRNA (rxxygzx-tdcq-cmlnz) vax 09/14/21 Given SARS-CoV-2 (COVID-19) mRNA BNT-162b2 [...] Refills, Maintenance, 05/26/22 19:48:00 EST, [facility], 154.8, cm, 05/25/22 13:21:00 EST, Height, 56, [...] meals, # 180 tablet, 1 Refills, [facility] ST[facility] 60719, 90, TAKE 1 TABLET BY MOUTH TWICE [...] 0 Refills, Maintenance, 05/12/22 8:22:00 EST, [facility]/pharmacy #0957, Partial fill upon patient request if the prescription is for a schedule II opioid drug., 1... Start Date: 05/12/22 Status: Ordered CPAP Equipment See Instructions, # 1 units, Refills 12, Tot. Refills 12, Maintenance, BIPAP supplies: Mask, tubing, filters, headgear, chin strap, water chamber 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) Lengthof need 99 months Please fax to [facility], [phone],... Start Date: 06/30/17 Status: Ordered CPAP Equipment See Instructions, # 1 each, Refills 12, Tot. Refills 12, Maintenance, BiPAP supplies: Mask, tubing,filters, headgear, chin strap, heated water chamber Dx: ELSA G47.33 Length of need 99 months Please fax to [facility] fax # [phone], 07/02/20 14:50:0... Start Date: 07/02/20 Status: Ordered [...] EACH USE., # 12 each, 11 Refills, [facility] 29249, 154.8, cm, 09/14/21 9:50:00 EDT, Height, 56, kg, 12/09/20 9:16:00 EDT, Dry Weight Start Date: 11/17/21 Status: Ordered fluticasone 50 mcg/inh nasal spray See Instructions, USE 1 SPRAY IN EACH NOSTRIL DAILY, # 48 mL, 11 Refills, [facility] 35031, 90, USE 1 SPRAY IN EACH NOSTRIL DAILY, 154.8, cm, 09/14/21 9:50:00 EDT, Height, 56, kg, 12/09/20 9:16:00 EDT, Dry Weight Start Date: 11/15/21 Status: Ordered Inderal LA 80 mg oral capsule, extended release 80 mg, 1, capsule, By Mouth, Daily, # 30 capsule, Refills 3, Tot. Refills 3, Maintenance, 06/23/20 10:00:00 EST, Route to Pharmacy Electronically, [facility]/pharmacy #0957, To replace Topamax. Partial fillupon patient request if the prescription is for a... Start Date: 06/23/20 Status: Ordered lisinopril 10 mg oral tablet 1, tablet, By Mouth, Daily, # 90 tablet, Refills 3, Route to Pharmacy Electronically, [facility] STORE 68170, 154.8, cm, 09/14/21 9:50:00 EDT, Height, 56, kg, 12/09/20 9:16:00 EDT, Dry Weight Start Date: 12/07/21 Status: Ordered melatonin 3 mg oral tablet 2 tablet = 6 mg, By Mouth, Daily at bedtime, PRN Insomnia, # 60 tablet, 2 Refills, Maintenance, 04/13/22 16:50:00 EST, [facility]/pharmacy #0957, Partial fill upon patient request if the prescription is fora schedule II opioid drug., 154.8, cm, 01/25/22 14:... Start Date: 04/13/22 Status: Ordered nicotine 2 mg oral transmucosal lozenge 1 lozenge = 2 mg, By Mouth, Every 2 hours, # 72 each, 11 Refills, Maintenance, 10/13/20 8:35:00 EDT, [facility]/pharmacy #0957, Partial fill upon patient request [...] each, Refills 3, Tot. Refills 3, Maintenance, [facility] Ensure 1 can TID. Dx: C34.90, R63.4, 03/29/21 15:29:00 EST, Supply Start Date: 03/29/21 Status: Ordered omeprazole 20 mg oral enteric coated capsule 1 capsule = 20 mg, By Mouth, Daily, # 90 capsule, 3 Refills, Maintenance, 07/08/21 15:23:00 EST, ECCapsule, [facility]/pharmacy #0957, Partial fill upon patient request if the prescription is for a schedule II opioid drug., 154.8, cm, 06/29/21 9:00:00 EST,... Start Date: 07/08/21 Status: Ordered Stiolto Respimat 60 ACT 2.5 mcg-2.5 mcg/inh inhalation aerosol 2 puffs, Inhalation, Every 24 hours, TO REPLACE TIOTROPIUM., # 4 mL, 11 Refills, [facility], 154.8, cm, 09/14/21 9:50:00 EDT, Height, 56, kg, 12/09/20 9:16:00 EDT, Dry Weight Start Date: 11/17/21 Status: Ordered Ventolin HFA 108 mcg/inh inhalation aerosol with adapter 2 puffs, Inhalation, 4 times a day, PRN NEEDED FOR WHEEZING, # 18 each, 5 Refills, [facility], 154.8, cm, 09/14/21 9:50:00 EDT, Height, 56, [...] right hand Confirmed Active Palpitations Confirmed Active *[id number] paige Escamilla Confirmed Active Pelvic mass Confirmed [...] Team Personnel Name: Jennyfer Stokes NP Position: [facility] PCO Associate Professional Member Role: PCP Address: Address: [address] [place] [address]- Care Team Related Persons Name: JOSELIN SCHMIDT Address: home [address] [place] [address] Name: ALYSE HAUSER Address: home [address] [place] [address] Name: NO, ONE AT THIS TIME
--- OUTSIDE RECORDS SUMMARY | 2022-12-26 10:36 | XMS_ITS | Continuity of Care Document ---
Author Name Unknown Organization [facility] Address [address] [place] [address], [address] [place] [address]- Care Team Providers Care Protein Purification Scientist Name Role Phone Divina MARINELLI, Adalberto Reeder Primary Care Physician Encounter [facility] Date(s): 05/19/20 - 05/26/20 [facility] Thor[facility] [address] [place] [address], [address] [place], [place] [address] Attending Physician: Kiley Wiseman MD Allergies, Adverse [...] 1 Refills, Maintenance, 07/31/19 11:08:00 EDT, Tablet, [facility]/pharmacy #0957, 154.9, cm, 07/04/19 9:38:00 EST, Height, [...] Refills, Soft Stop, 04/24/20 11:56:00 EST, Tablet, [facility]/pharmacy #0957, Partial fill upon patient request if [...] 11 Refills, Maintenance, 02/18/20 9:43:00 EDT, Tablet, [facility]/pharmacy #0957, 1 tablet By Mouth 2 times [...] 02/18/20 9:42:00 EDT, [facility], 154.9, cm, 12/30/19 11:15:00 EDT, Height, 55.3, kg, 04/19/19 8:36:00 EST, Dry Weight Start Date: 02/18/20 Status: Ordered cetirizine 10 mg oral tablet 1 tablet = 10 mg, By Mouth, Daily, PRN Other, PRN allergies, # 30 tablet, 11 Refills, Maintenance, 02/18/20 9:43:00 EDT, Tablet, [facility]/pharmacy #0957, [...] fax to [facility] [address] [phone], # 90 tablet, 2 Refills, Maintenance, 09/17/18 12:46:43 EDT, Tablet Start Date: 09/17/18 Status: Ordered CPAP Equipment See Instructions, # 1 units, Refills 12, Tot. Refills 12, Maintenance, BiPAP supplies: Mask, tubing, filters, headgear, chin strap, heated water chamber Dx: ELSA G47.33 Length of need 99 months Pleasefax to [facility], [phone], 09/04/18 15:13:48 EDT, Co... Start Date: 09/04/18 Status: Ordered CPAP Equipment See Instructions, # 1 units, Refills 12, Tot. Refills 12, Maintenance, BIPAP supplies: Mask, tubing, filters, headgear, chin strap, water chamber 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) Lengthof need 99 months Please fax to [facility], [phone],... Start Date: 06/30/17 Status: Ordered [facility] DIPHENHYDRAMINE 25 MG TAB [facility] DIPHENHYDRAMINE 25 MG TAB, 1, tablet, By [...] 6 Refills, Maintenance, 04/29/20 17:54:00 EST, Tablet, [facility]/pharmacy #0957, 154.9, cm, 12/30/19 11:15:00 EDT, Height, 55.3, kg, 04/19/19 8:36:00 EST, Dry Weight Start Date: 04/29/20 Status: Ordered Eucerin Unscented topical lotion See Instructions, apply to skin daily, dispense 1 jar, # 1 each, 11 Refills, Maintenance, 09/25/19 16:37:00 EDT, [facility]/pharmacy #0957, apply to skin daily, dispense 1 [...] Refills, Maintenance, 02/18/20 9:43:00 EDT, EC Capsule, [facility]/pharmacy #0957, 154.9, cm, 12/30/19 11:15:00 EDT, Height, 55.3, kg, 04/19/19 8:36:00 EST, Dry Weight Start Date: 02/18/20 Status: Ordered ProAir HFA 90 mcg/inh inhalation aerosol with adapter 2, puffs, Inhalation, 4 times a day, PRN, # 1 each, Refills 11, Tot. Refills 11, Maintenance, 04/20/20 13:51:00 EST, Route to Pharmacy Electronically, [id number], [facility]/pharmacy #0957, 154.9, cm, [...] Active Clubbing(Confirmed) Active Drug abuse: Suboxone via [facility](Confirmed) Active Esophageal reflux (GERD)(Confirmed) [...]
--- OUTSIDE RECORDS SUMMARY | 2022-12-26 10:36 | XMS_ITS | Continuity of Care Document ---
Author Name Unknown Organization [facility] Address [address] [place] [address]- Care Team Providers Care Agent Based Modeler Name Role Phone Epifanio SMALLWOOD, Mavis Mak Primary Care Physician En[place] [facility] [place](s[place] 06/22/22 - 06/29/22 [facility] [address] [place] [address]- Encounter Diagnosis Opioid use disorder(Discharge Diagnosis) - 06/22/22 Major depressive disorder, [facility](Discharge Diagnosis) - 06/22/22 HPV: Positive in 07/15; 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, negative in 10/16(Discharge Diagnosis) - 06/22/22 Lung cancer(Discharge Diagnosis) - 06/22/22 Osteoporosis(Discharge Diagnosis) - 06/22/22 JASON (generalized anxiety disorder)(Discharge Diagnosis) - 06/22/22 Palpitations(Discharge Diagnosis) - 06/22/22 Attending Physician: Mavis Allen Allergies, Adverse Reactions, Alerts Substance Reaction Severity Status Zoloft O/E - Parkinsonian tremor Ac tive Rubber Active Other Environmental Allergy 1 Active 1ELASTIC Immunizations Given and Recorded Vaccine Date Status Refusal Reason ONSP-LvD-4xVDF 12y+ bivalent booster vax 05/11/22 Recorded influenza [...] vaccine, inactivated 04/23/08 Give n SARS-CoV-2 mRNA (hvlddsy-rgfv-qwamd) vax 12/14/21 Given SARS-CoV-2 mRNA (ntqrvuw-zzse-frxvg) vax 09/14/21 Given SARS-CoV-2 (COVID-19) mRNA BNT-162b2 [...] Refills, Maintenance, 05/26/22 19:48:00 EST, [facility], 154.8, cm, 05/25/22 13:21:00 EST, Height, 56, [...] with meals, # 180 tablet, 1 Refills, [facility], 90, TAKE 1 TABLET BY MOUTH TWICE [...] 0 Refills, Maintenance, 05/12/22 8:22:00 EST, [facility]/pharmacy #0991, Partial fill upon patient request if the prescription is for a schedule II opioid drug., 1... Start Date: 05/12/22 Status: Ordered CPAP Equipment See Instructions, # 1 units, Refills 12, Tot. Refills 12, Maintenance, BIPAP supplies: Mask, tubing, filters, headgear, chin strap, water chamber 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) Lengthof need 99 months Please fax to [facility], [phone],... Start Date: 06/30/17 Status: Ordered CPAP Equipment See Instructions, # 1 each, Refills 12, Tot. Refills 12, Maintenance, BiPAP supplies: Mask, tubing,filters, headgear, chin strap, heated water chamber Dx: ELSA G47.33 Length of need 99 months Please fax to [facility] fax # [phone], 07/02/20 14:50:0... Start Date: 07/02/20 Status: Ordered cyanocobalamin 500 mcg oral tablet 1 tablet = 500 mcg, By Mouth, Daily, on empty stomach, # 90 tablet, 3 Refills, Maintenance, 03/26/21 20:06:00 EST, Tablet, [facility]/pharmacy #0957, Partial fill upon patient request if the prescription isfor a schedule II opioid drug., 154.8, cm, 03/23/21... Start Date: 03/26/21 Status: Ordered Flovent HFA 220 mcg/inh inhalation aerosol 2 puffs, Inhalation, 2 times a day, AND THROAT AFTER EACH USE., # 12 each, 11 Refills, [facility], 154.8, cm, 09/14/21 9:50:00 EDT, Height, 56, kg, 12/09/20 9:16:00 EDT, Dry Weight Start Date: 11/17/21 Status: Ordered fluticasone 50 mcg/inh nasal spray See Instructions, USE 1 SPRAY IN EACH NOSTRIL DAILY, # 48 mL, 11 Refills, [facility], 90, USE 1 SPRAY IN EACH NOSTRIL DAILY, 154.8, cm, 09/14/21 9:50:00 EDT, Height, 56, kg, 12/09/20 9:16:00 EDT, Dry Weight Start Date: 11/15/21 Status: Ordered lisinopril 10 mg oral tablet 1, tablet, By Mouth, Daily, # 90 tablet, Refills 3, Route to Pharmacy Electronically, [facility], 154.8, cm, 09/14/21 9:50:00 EDT, Height, 56, kg, 12/09/20 9:16:00 EDT, Dry Weight Start Date: 12/07/21 Status: Ordered melatonin 3 mg oral tablet 2 tablet = 6 mg, By Mouth, Daily at bedtime, PRN Insomnia, # 60 tablet, 2 Refills, Maintenance, 04/13/22 16:50:00 EST, [facility]/pharmacy #0957, Partial fill upon patient request if [...] 11 Refills, Maintenance, 10/13/20 8:35:00 EDT, [facility]/pharmacy #0957, Partial fill upon patient request if the prescription is for a schedule II opioid drug., 1 lozenge By Mouth Every 2 hours, 154.9,... Start Date: 10/13/20 Status: Ordered Nutritional Supplements See Instructions, # 90 each, Refills 3, Tot. Refills 3, Maintenance, [facility] Ensure 1 can TID. Dx: C34.90, R63.4, 03/29/21 15:29:00 EST, Supply Start Date: 03/29/21 Status: Ordered omeprazole 20 mg oral enteric coated capsule 1 capsule = 20 mg, By Mouth, Daily, # 90 capsule, 3 Refills, Maintenance, 07/08/21 15:23:00 EST, ECCapsule, [facility]/pharmacy #0957, Partial fill upon patient request if [...] FOR WHEEZING, # 18 each, 5 Refills, [facility], 154.8, cm, 09/14/21 9:50:00 EDT, Height, 56, [...] Clubbing Confirmed Active Drug abuse: Suboxone via [facility] Confirmed Active Esophageal reflux (GERD) Confirmed 05/09/12 Active JASON (generalized anxiety disorder) Confirmed Active HPV: Positive in 07/15; 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, negative in 10/16 Confirmed Active Hypertension Confirmed 08/23/10 Active Lung cancer Confirmed Active Lung nodules Confirmed Active Opioid use disorder Confirmed Active Osteoporosis Confirmed Active Pain in finger of right hand Confirmed Active Palpitations Confirmed Active *[id number]-S paige Escamilla Confirmed Active Pelvic mass Confirmed Active Emphysema of lung: mixed emphysema/UIP Confirmed Active Major depressive disorder, [facility] Confirmed Active Resting tremor Confirmed Active Tobacco abuse Confirmed Active Tubular adenoma of colon 1 Confirmed 04/22/19 Active 1repeat screening colonoscopy in 2023 Diagnosis Diagnosis Type Effective Dates Health Status Clinical Service Informant Opioid use disorder Discharge Diagnosis 06/22/22 Major depressive disorder, [facility] Discharge Diagnosis 06/22/22 HPV: Positive in 07/15; 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, negative in 10/16 Discharge Diagnosis 06/22/22 Lung cancer Discharge Diagnosis 06/22/22 Osteoporosis Discharge Diagnosis 06/22/22 JASON (generalized anxiety disorder) Discharge Diagnosis 06/22/22 Palpitations Discharge Diagnosis 06/22/22 Procedures Procedure Date Related Diagnosis Body Site Status left lung nodule removed Completed Vital Signs Most recent to oldest [Reference Range]: 1 2 Height 154 cm (06/22/22 3:01 PM) 154 cm (06/22/22 8:03 AM) Weight 59.9 kg (06/22/22 3:01 PM) 59.9 kg (06/22/22 8:03 AM) Oxygen Saturation [94-100 %] 100 % (06/22/22 8:03 AM) Pulse Rate [55-90 bpm] 68 bpm (06/22/22 8:03 AM) Body Mass Index [18.5-24.99 kg/m2] 25.26 kg/m2 *H* (06/22/22 8:03 AM) Blood Pressure [90-138/55-84 mm Hg] 120/ 75mm Hg (06/22/22 8:03 AM) Mode of Delivery (Oxygen) Room air (06/22/22 8:03 AM) Blood pressure sites Arm, left (06/22/22 8:03 AM) Weight Obtained Via Standing scale (06/22/22 8:03 AM) Social History Social History Type Response Smoking Status Smoker, current stat us unknown; Other: Patient currently smoking 5-7 cig per day; Tobacco use times per day: 50 years <1ppd; entered on: 06/22/22 Sex Note * Cherelle Garcia: PERFORM, SIGN, VERIFY Event Display: Patient Education/Instruction Authored Date: [id number] [facility] *[facility] [place] [facility] Clinical Summary Name ANA MARIA SCHMIDT Age 67 Years 1955 PCP Epifanio SMALLWOOD, Mavis Mak PCP Visit Date 06/22/2022 08:01:00 Additional Instructions: Scheduled Appointments?? Future Appointments ?No Future Appointments Scheduled Follow-Up Instructions ?? Diagnosis Medications: Please continue your medications until treatment is completed or stopped by your provider. Discuss any questions related to medications with your provider. Medications to Continue Taking That Have Changed These medications were not printed or sent to your pharmacy - olodaterol-tiotropium (Stiolto Respimat 60 ACT 2.5 mcg-2.5 mcg/inh inhalation aerosol) Next Dose: Medications to Continue with No Changes These medications were not printed or sent to your pharmacy Albuterol (Ventolin HFA 108 mcg/inh inhalation aerosol with adapter) 2 puff(s) Inhalation 4 times aday as needed NEEDED FOR WHEEZING. Refills: 5. Next Dose: Alendronate (alendronate 70 mg oral tablet) 1 tab(s) Oral every week. Refills: 3. Next Dose: Calcium And Vitamin D Combination (calcium-vitamin D 600 mg-400 intl units oral tablet) 1 tab(s) Oral two times a day with meals. Refills: 1. Next Dose: Clonazepam (clonazePAM 0.125 mg oral tablet, disintegrating) 1 tablet By Mouth Daily at bedtime. Please take: Morning dose: take 1 tablet (0.125 mg) every morning for next 2 weeks. Then, take 1 tablet (0.125 mg) every morning every other day for 2 weeks, then stop morning dose of medication. Please follow up with your provider on completion of morning taper. Evening dose: Take 2, 0.125 mg tablets (this will be a total of .25 mg) daily in the evening until our next follow up visit. Once you taper off of the morning dose, we will then begin taper of evening dose.. Refills: 0. Next Dose: Clonazepam (clonazePAM 0.25 mg oral tablet, disintegrating) 1 tablet By Mouth 2 times a day as needed. Mass Pat Reviewed.. Refills: 0. Next Dose: Cyanocobalamin (cyanocobalamin 500 mcg oral tablet) 1 tab(s) Oral Daily. on empty stomach. Refills:3. Next Dose: Durable Medical Equipment (Aerochamber) as directed with MDI; Please substitute whichever spacer iscovered by patient's insurance; as needed Wheezing/Shortness of Breath. Refills: 5. Next Dose: Durable Medical Equipment (BiPAP Machine) BiPAP 12/6 with a backup rate of 12 with a heated humidifier. 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). Refills: 0. Next Dose: Durable Medical Equipment (Cane) as directed for back pain. Refills: 0. Next Dose: Durable Medical Equipment (CPAP Equipment) BIPAP supplies: Mask, tubing, filters, headgear, chin strap, water chamber 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) Length of need 99 months Please fax to [facility], [phone]. Refills: 12. Next Dose: Durable Medical Equipment (CPAP Equipment) BiPAP supplies: Mask, tubing, filters, headgear, chin strap, heated water chamber Dx: ELSA G47.33 Length of need 99 months Please fax to [facility] fax # [phone]. Refills: 12. Next Dose: Durable Medical Equipment (Nutritional Supplements) Goldsmith Ensure 1 can TID. Dx: C34.90, R63.4.Refills: 3. Next Dose: Fluticasone (Flovent HFA 220 mcg/inh inhalation aerosol) 2 puff(s) Inhalation twice a day. AND THROAT AFTER EACH USE.. Refills: 11. Next Dose: Fluticasone Nasal (fluticasone 50 mcg/inh nasal spray) USE 1 SPRAY IN EACH NOSTRIL DAILY. Refills: 11. Next Dose: Lisinopril (lisinopril 10 mg oral tablet) 1 tab(s) Oral Daily. Refills: 3. Next Dose: Melatonin (melatonin 3 mg oral tablet) 2 tab(s) Oral Daily at Bedtime as needed Insomnia. Refills: 2. Next Dose: Nicotine (nicotine 2 mg oral transmucosal lozenge) 1 lozenge(s) Oral every 2 hours. Refills: 11. Next Dose: Omeprazole (omeprazole 20 mg oral enteric coated capsule) 1 capsule Oral Daily. Refills: 3. Next Dose: No Longer Take the Following Medications Emollients, Topical (Eucerin Plus topical lotion) 1 alivia Topically twice a day as needed for dry skin. Refills: 11. Emollients, Topical (Eucerin Unscented topical lotion) 1 alivia Topically twice a day as needed for dry skin. Refills: 11. Lanolin-Mineral Oil Topical (Eucerin Unscented topical lotion) apply to skin daily, dispense 1 jar.Refills: 11. PEG Electrolyte Solution (NuLYTELY with Flavor Packs oral powder for reconstitution) 1 glass every 15-30 minutes until finished. Refills: 0. Propranolol (Inderal LA 80 mg oral capsule, extended release) 1 capsule Oral Daily. Refills: 3. Allergy Info:?? Other Environmental Allergy; Rubber; Zoloft Medications Given This Visit Future Orders ?No future orders Vital Signs Height 154 cm Weight 59.9 kg BMI 25.26 kg/m2 Blood Pressure 120 mm Hg/75 mm Hg Temperature Pulse Rate 68 bpm Respiratory Rate 02 Sat Mode of Delivery 100 %/Room air You can now view a summary of your hospital visit from the comfort of your home through a free online portal called [employer]. [employer] is a website that allows you to securely view your medical information including discharge summary, medications and follow-up visits. ??You can alsosend a secure electronic message to your doctor???s office to request appointments, renew medications or just ask a question. You can enroll at [email or web address] or register during your next office visit. Disclaimer:?? The information provided is of a general nature and is intended to be used in conjunction with the recommendations and advice of your health care practitioner. ??Every effort has been made to ensure that the information provided is accurate and complete at the time it is provided to you however, as your needs change, or, as new ??information becomes available, different or additional instructions may be required. If you have questions, please consult with your primary care provider or pharmacist, as appropriate. ??This information is not intended to serve as substitution for assessment and evaluation by a qualified health care provider. If you do not have a primary care provider, you may find a [facility] provider by calling [facility] [employer] at [phone]. For information about the plan of care including goals and instructions for your diagnosis, please see the patient education orders section of this document. Patient Education Materials?? The content of this educational material or handout may have been modified, supplemented, or adapted from its original content and format to support your individualized medical care. Patient Care team information Care Team Personnel Name: Mavis Allen Position: [facility] Associate Professional Member Role: PCP Address: Address: [address] [place] [address]. [address] [place] [address]- Care Team Related Persons Name: JOSELIN SCHMIDT Address: home [address] [place] [address] Name: ANALISAALYSE Address: home [address] [place] [id number] Name: NO, ONE AT THIS TIME
--- OUTSIDE RECORDS SUMMARY | 2022-12-26 10:36 | XMS_ITS | Continuity of Care Document ---
Author Name Unknown Organization [facility] Address [address] [place] [address]- Care Team Providers Care Welfare Worker Name Role Phone Adalberto Murcia MD Primary Care Physician [place] [facility] [place] - 11/13/[address] [address]- [facility] Attending Physician: Angelina Mendoza Admitting Physician: Angelina Mendoza Referring Physician: Angelina Mendoza Allergies, Adverse Reactions, Alerts Substance Reaction Severity [...] 1 Refills, Maintenance, 07/31/19 11:08:00 EDT, Tablet, [facility]/pharmacy #0957, 154.9, cm, 07/04/19 9:38:00 [...] 03/19/19 10:53:39 EST, Route to Pharmacy Electronically, [id number], [facility]/pharmacy #1026 Start Date: 03/19/19 Status: Ordered cetirizine 10 mg oral tablet 1 tablet = 10 mg, By Mouth, Daily, PRN Other, PRN allergies, # 30 tablet, 11 Refills, Maintenance, 05/28/19 12:01:00 EST, Tablet, [facility]/pharmacy #0957, 154.9, cm, 05/28/19 11:40:00 EST, Height, 55.3, kg, 04/19/19 8:36:00 EST, Dry Weight Start Date: 05/28/19 Status: Ordered Chantix Starter Pack 0.5 mg-1 mg oral tablet 1 tablet, By Mouth, 2 times a day, # 53 doses/times, 0 Refills, Maintenance, 10/21/19 13:19:00 EDT,[facility], 28, TAKE 1 TABLET BY MOUTH TWICE [...] 3 times a day, Please fax to [facility] [address] [phone], # 90 tablet, 2 Refills, Maintenance, 09/17/18 12:46:43 EDT, Tablet Start Date: 09/17/18 Status: Ordered CPAP Equipment See Instructions, # 1 units, Refills 12, Tot. Refills 12, Maintenance, BiPAP supplies: Mask, tubing, filters, headgear, chin strap, heated water chamber Dx: ELSA G47.33 Length of need 99 months Pleasefax to [facility], [phone], 09/04/18 15:13:48 EDT, Co... Start Date: 09/04/18 Status: Ordered CPAP Equipment See Instructions, # 1 units, Refills 12, Tot. 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 Start Date: 06/30/17 Status: Ordered diphenhydrAMINE 25 [...] DAY [place] AND THROAT AFTER EACH USE, [facility]/pharmacy #1026 Start Date: 03/15/19 Status: Ordered lisinopril 10 mg oral tablet 10 mg, 1, tablet, By Mouth, Daily, # 30 tablet, Refills 11, Tot. Refills 11, Maintenance, 05/28/19 12:01:00 EST, Route to Pharmacy Electronically, [facility]/pharmacy #0957, 154.9, cm, 05/28/19 11:40:00 [...] 05/28/19 12:01:00 EST, Route to Pharmacy Electronically, [id number], [facility]/pharmacy #0957, 154.9, cm, 05/28/19 11:40:00 [...] 1 Refills, Maintenance, 09/18/19 8:59:00 EDT, Tablet, [facility]/pharmacy #0957, 154.9, cm, 08/22/19 15:10:00 EDT, Height, 55.3, kg, 04/19/19 8:36:00EST, Dry Weight Start Date: 09/18/19 Status: Ordered Vitamin B2 100 mg oral tablet 2 tablet = 200 mg, By Mouth, 2 times a day, # 100 tablet, 11 Refills, Maintenance, 05/28/19 12:01:00 EST, [facility]/pharmacy #0957, 154.9, cm, 05/28/19 11:40:00 EST, Height, 55.3, kg, 04/19/19 8:36:00 EST,Dry Weight Start Date: 05/28/19 Status: Ordered Problem List Condition Effective Dates Status Health Status Inform ant Age at leaving school - ged(Confirmed) Active ASCUS(Confirmed) Active 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
--- OUTSIDE RECORDS SUMMARY | 2022-12-26 10:36 | XMS_ITS | Continuity of Care Document ---
Author Name Unknown Organization [facility] Address [address] [place] [address]- Care Team Providers Care Fire Systems Inspector Name Role Phone Mavis Allen Primary Care Physician Encounter [facility] Date(s): 06/03/22 - 07/03/[address] [address]- Allergies, Adverse Reactions, Alerts Substance Reaction Severity Status Zoloft O/E - Parkinsonian tremor Ac tive Rubber Active Other Environmental Allergy 1 Active 1ELASTIC Immunizations Given and Recorded Vaccine Date Status Refusal Reason [id number] 12y+ bivalent booster vax 05/11/22 Recorded influenza [...] vaccine, inactivated 04/23/08 Give n SARS-CoV-2 mRNA ([id number]-yhxc-jvxdd) vax 12/14/21 Given SARS-CoV-2 mRNA (tcbtrnd-tljh-pyimn) vax 09/14/21 Given SARS-CoV-2 (COVID-19) mRNA BNT-162b2 [...] Refills, Maintenance, 05/26/22 19:48:00 EST, [facility], 154.8, cm, 05/25/22 13:21:00 EST, Height, 56, [...] meals, # 180 tablet, 1 Refills, [facility]02, 90, TAKE 1 TABLET BY MOUTH TWICE [...] 0 Refills, Maintenance, 05/12/22 8:22:00 EST, [facility]/pharmacy #0966, Partial fill upon patient request if the prescription is for a schedule II opioid drug., 1... Start Date: 05/12/22 Status: Ordered CPAP Equipment See Instructions, # 1 units, Refills 12, Tot. 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 Start Date: 06/30/17 Status: Ordered CPAP Equipment See Instructions, # 1 each, Refills 12, Tot. Refills 12, Maintenance, BiPAP supplies: Mask, tubing,filters, headgear, chin strap, heated water chamber Dx: ELSA G47.33 Length of need 99 months Please fax to [facility] fax # [phone], 07/02/20 14:50:0... Start Date: 07/02/20 Status: Ordered [...] EACH USE., # 12 each, 11 Refills, [facility] 636[facility], 154.8, cm, 09/14/21 9:50:00 EDT, Height, 56, kg, 12/09/20 9:16:00 EDT, Dry Weight Start Date: 11/17/21 Status: Ordered fluticasone 50 mcg/inh nasal spray See Instructions, USE 1 SPRAY IN EACH NOSTRIL DAILY, # 48 mL, 11 Refills, [facility], 90, USE 1 SPRAY IN EACH NOSTRIL DAILY, 154.8, cm, 09/14/21 9:50:00 EDT, Height, 56, kg, 12/09/20 9:16:00 EDT, Dry Weight Start Date: 11/15/21 Status: Ordered lisinopril 10 mg oral tablet 1, tablet, By Mouth, Daily, # 90 tablet, Refills 3, Route to Pharmacy Electronically, [facility], 154.8, cm, 09/14/21 9:50:00 EDT, Height, 56, [...] each, Refills 3, Tot. Refills 3, Maintenance, [facility] Ensure 1 can TID. Dx: C34.90, R63.4, 03/29/21 15:29:00 EST, Supply Start Date: 03/29/21 Status: Ordered omeprazole 20 mg oral enteric coated capsule 1 capsule = 20 mg, By Mouth, Daily, # 90 capsule, 3 Refills, Maintenance, 07/08/21 15:23:00 EST, ECCapsule, [facility]/pharmacy #0957, Partial fill upon [...] # 18 each, 5 Refills, [facility], 154.8, cm, 09/14/21 9:50:00 EDT, Height, 56, [...] Clubbing Confirmed Active Drug abuse: Suboxone via [facility] Confirmed Active Esophageal reflux (GERD) Confirmed 05/09/12 Active JASON (generalized anxiety disorder) Confirmed Active HPV: Positive in 07/15; 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, negative in 10/16 Confirmed Active Hypertension Confirmed 08/23/10 Active Lung cancer Confirmed Active Lung nodules Confirmed Active Opioid use disorder Confirmed Active Osteoporosis Confirmed Active Pain in finger of right hand Confirmed Active Palpitations Confirmed Active *[id number] paige Escamilla Confirmed Active Pelvic mass Confirmed [...] Care Team Personnel Name: Mavis Allen Position: [facility] PCO Associate Professional Member Role: PCP Address: Address: [address] [place] [address]. [address] [place] [address]- Care Team Related Persons Name: OJSELIN SCHMIDT Address: home [address] [place] [address] Name: ALYSE HAUSER Address: home [address] [place] [id number] Name: NO, ONE AT THIS TIME
--- OUTSIDE RECORDS SUMMARY | 2022-12-26 10:36 | XMS_ITS | Continuity of Care Document ---
Author Name Unknown Organization [facility] Address [address] [address]- Care Team Providers Care Reimbursement Coordinator Name Role Phone Divina MARINELLI, Adalberto Reeder Primary Care Physician [place] [facility] [place] [place] 09/21/19 [facility] [address] [place] [address]- [facility] Attending Physician: Todd Maria MD Admitting Physician: Todd Maria MD Allergies, Adverse Reactions, [...] 03/19/19 10:53:39 EST, Route to Pharmacy Electronically, [id number], [facility]/pharmacy #[id number] Start Date: 03/19/19 Status: Ordered cetirizine 10 mg oral tablet 1 tablet = 10 mg, By Mouth, Daily, PRN Other, PRN allergies, # 30 tablet, 11 Refills, Maintenance, 05/28/19 12:01:00 EST, Tablet, [facility]/pharmacy #0957, 154.9, cm, 05/28/19 [...] 3 times a day, Please fax to [facility] on [address] [phone], # 90 tablet, 2 Refills, Maintenance, 09/17/18 12:46:43 EDT, Tablet Start Date: 09/17/18 Status: Ordered CPAP Equipment See Instructions, # 1 units, Refills 12, Tot. Refills 12, Maintenance, BiPAP supplies: Mask, tubing, filters, headgear, chin strap, heated water chamber Dx: ELSA G47.33 Length of need 99 months Pleasefax to [facility], [phone], 09/04/18 15:13:48 EDT, Co... Start Date: 09/04/18 Status: Ordered CPAP Equipment See Instructions, # 1 units, Refills 12, Tot. Refills 12, Maintenance, BIPAP supplies: Mask, tubing, filters, headgear, chin strap, water chamber 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) Lengthof need 99 months Please fax to [facility], [phone],... Start Date: 06/30/17 Status: Ordered diphenhydrAMINE 25 [...] Gm, 11 Refills, Maintenance, 05/28/19 12:01:00 EST, [facility]/pharmacy #0957, 1 sprays Nasal Daily, 154.9, cm, 05/28/19 11:40:00 EST, Height, 55.3, kg, 04/19/19 8:36:00 EST, Dry Weight Start Date: 05/28/19 Status: Ordered Flovent HFA 220 mcg/inh inhalation aerosol See Instructions, # 12 Unknown, Refills 11 Tot. Refills 11, TAKE 2 PUFFS BY MOUTH TWICE A DAY [place] AND THROAT AFTER EACH USE, [facility]/pharmacy #1026 Start Date: 03/15/19 Status: Ordered lisinopril 10 mg oral tablet 10 mg, 1, tablet, By Mouth, Daily, # 30 tablet, Refills 11, Tot. Refills 11, Maintenance, 05/28/19 12:01:00 EST, Route to Pharmacy Electronically, [facility]/pharmacy #0957, 154.9, cm, 05/28/19 11:40:00 EST, Height, 55.3, kg, 04/19/19 8:36:00 EST, Dry Weight Start Date: 05/28/19 Status: Ordered nicotine 4 mg oral transmucosal lozenge 1 lozenge = 4 mg, By Mouth, Every 8 hours, for 3 week(s), # 63 lozenge, 1 Refills, Acute 10/03/19 10:28:00 EDT, 08/22/19 10:28:00 EDT, [facility]/pharmacy #0957, 1 lozenge By Mouth Every 8 [...] 05/28/19 12:01:00 EST, Route to Pharmacy Electronically, [id number], [facility]/pharmacy #0957, 154.9, cm, 05/28/19 [...] 1 Refills, Maintenance, 09/18/19 8:59:00 EDT, Tablet, [facility]/pharmacy #0957, 154.9, cm, 08/22/19 15:10:00 EDT, Height, 55.3, kg, 04/19/19 8:36:00EST, Dry Weight Start Date: 09/18/19 Status: Ordered Vitamin B2 100 mg oral tablet 2 tablet = 200 mg, By Mouth, 2 times a day, # 100 tablet, 11 Refills, Maintenance, 05/28/19 12:01:00 EST, [facility]/pharmacy #0957, 154.9, cm, 05/28/19 11:40:00 EST, Height, 55.3, kg, 04/19/19 8:36:00 EST,Dry Weight Start Date: 05/28/19 Status: Ordered Problem List Condition Effective Dates Status Health Status Inform ant Age at leaving school - ged(Confirmed) Active ASCUS(Confirmed) Active 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 Sleep Report(Confirmed) 05/25/11 Active Hep C: Cleared without treatment(Confirmed) Active Clubbing(Confirmed) Active Drug abuse: Suboxone via [facility](Confirmed) Active Esophageal reflux (GERD)(Confirmed) 05/09/12 Active JASON (generalized anxiety disorder)(Confirmed) Active HPV: Positive in 07/15; neg i n 01/15, negative in 10/16(Confirmed) Active Hypertension(Confirmed) 08/23/10 Active Zachary Duran, Malaika/MARY [id number] active care coordination(Confirmed) Active Emphysema of lung: [...]
--- OUTSIDE RECORDS SUMMARY | 2022-12-26 10:36 | XMS_ITS | Continuity of Care Document ---
Author Name Unknown Organization [facility] Address [address] [place] [address]- Care Team Providers Care Carcass Washer Name Role Phone Divina MARINELLI, Adalberto Reeder Primary Care Physician Encounter [facility] Date(s): 11/25/20 - 12/25/[address] [address]- Allergies, Adverse Reactions, Alerts Substance Reaction Severity [...] 17:04:00 EDT, Aerosol, Route to Pharmacy Electronically, [id number]... Start Date: 08/03/20 Status: Ordered BiPAP Machine [...] 56 tablet, 3 Refills, Acute, [facility], 154.9, cm, 06/11/20 9:48:00 EST, Height, 58, kg, 06/05/20 12:02:00 EST, Dry Weight Start Date: 08/03/20 Status: Ordered clonazePAM 1 mg oral tablet 1 tablet = 1 mg, By Mouth, 3 times a day, PRN Anxiety, Please dispense on/after 12/07/20, # 70 tablet, 0 Refills, Maintenance, 12/04/20 11:21:00 EDT, Tablet, [facility]/pharmacy #0957, 154.9, cm, 10/13/20 7:56:00 EDT, Height, 58, kg, 06/05/20 12:02:00 EST, Dry... Start Date: 12/04/20 Status: Ordered CPAP Equipment See Instructions, # 1 units, Refills 12, Tot. Refills 12, Maintenance, BIPAP supplies: Mask, tubing, filters, headgear, chin strap, water chamber 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) Lengthof need 99 months Please fax to [facility], [phone],... Start Date: 06/30/17 Status: Ordered CPAP Equipment See Instructions, # 1 each, Refills 12, Tot. Refills 12, Maintenance, BiPAP supplies: Mask, tubing,filters, headgear, chin strap, heated water chamber Dx: ELSA G47.33 Length of need 99 months Please fax to [facility] fax # [phone], 07/02/20 14:50:0... Start Date: 07/02/20 Status: Ordered Eucerin Unscented topical lotion See Instructions, apply to skin daily, dispense 1 jar, # 1 each, 11 Refills, Maintenance, 09/25/19 16:37:00 EDT, [facility]/pharmacy #0957, apply to skin daily, [...] Gm, 11 Refills, Maintenance, 11/05/20 17:11:00 EDT, [facility]/pharmacy #0957, 1 sprays Nasal Daily, 154.9, cm, 10/13/20 7:56:00 EDT, Height, 58, kg, 06/05/20 12:02:00 EST, Dry Weight Start Date: 11/05/20 Status: Ordered Flovent HFA 220 mcg/inh inhalation aerosol See Instructions, TAKE 2 PUFFS BY MOUTH TWICE A DAY RINSE MOUTH AND THROAT AFTER EACH USE, # 12 Unknown, 11 Refills, Soft Stop, 11/05/20 17:11:00 EDT, [facility]/pharmacy #0957, 154.9, cm, 10/13/20 7:56:00 EDT, Height, 58, kg, 06/05/20 12:02:00 EST, Dry Weight Start Date: 11/05/20 Status: Ordered Inderal LA 80 mg oral capsule, extended release 80 mg, 1, capsule, By Mouth, Daily, # 30 capsule, Refills 3, Tot. Refills 3, Maintenance, 06/23/20 10:00:00 EST, Route to Pharmacy Electronically, [facility]/pharmacy #0957, To replace Topamax. Partial fillupon patient request if the prescription is for a... Start Date: 06/23/20 Status: Ordered lisinopril 10 mg oral tablet 10 mg, 1, tablet, By Mouth, Daily, # 90 tablet, Refills 3, Tot. Refills 3, Maintenance, 09/28/20 13:15:00 EDT, Route to Pharmacy Electronically, [facility]/pharmacy #0957, 154.9, cm, 09/22/20 10:26:00 EDT, Height, 58, kg, 06/05/20 12:02:00 EST, Dry Weight Start Date: 09/28/20 Stop Date: 09/23/21 Status: Ordered nicotine 2 mg oral transmucosal lozenge 1 lozenge = 2 mg, By Mouth, Every 2 hours, # 72 each, 11 Refills, Maintenance, 10/13/20 8:35:00 EDT, [facility]/pharmacy #0957, Partial fill upon [...] 11 Refills, Maintenance, 11/05/20 17:11:00 EDT, Aerosol, [facility]/pharmacy #0957, 154.9, cm, 10/13/20 7:56:00 [...] Clubbing(Confirmed) Active Drug abuse: Suboxone via [facility](Confirmed) Active Esophageal reflux (GERD)(Confirmed) 05/09/12 Active [...]
--- OUTSIDE RECORDS SUMMARY | 2022-12-26 10:36 | XMS_ITS | Continuity of Care Document ---
Author Name Unknown Organization [facility] Address [address] [place] [address]- Care Team Providers Care Leather Scraper Name Role Phone Divina MARINELLI, Adalberto Reeder Primary Care Physician [place] [facility] [place] [facility] [id number] Date(s): 06/23/20 - 07/23/[address] [address]- Attending Physician: Angelina Mendoza Admitting Physician: Angelina [...] 3 Refills, Maintenance, 02/18/20 9:41:00 EDT, Tablet, [facility]/pharmacy #0957, 154.9, cm, 12/30/19 11:15:00 EDT, Height, 55.3, kg, 04/19/19 8:36... Start Date: 02/18/20 Status: Ordered clonazePAM 1 mg oral tablet 1 tablet = 1 mg, By Mouth, 3 times a day, Please fax to [facility] [address] [phone], # 90 tablet, 2 Refills, Maintenance, 09/17/18 12:46:43 EDT, Tablet Start Date: 09/17/18 Status: Ordered CPAP Equipment See Instructions, # 1 units, Refills 12, Tot. Refills 12, Maintenance, BIPAP supplies: Mask, tubing, filters, headgear, chin strap, water chamber 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) Lengthof need 99 months Please fax to [facility], [phone],... Start Date: 06/30/17 Status: Ordered CPAP Equipment See Instructions, # 1 each, Refills 12, Tot. Refills 12, Maintenance, BiPAP supplies: Mask, tubing,filters, headgear, chin strap, heated water chamber Dx: ELSA G47.33 Length of need 99 months Please fax to [facility] fax # [phone], 07/02/20 14:50:0... Start Date: 07/02/20 Status: Ordered [...] Gm, 11 Refills, Maintenance, 02/18/20 9:43:00 EDT, [facility]/pharmacy #0957,1 sprays Nasal Daily, 154.9, cm, 12/30/19 11:15:00 EDT, Height, 55.3, kg, 04/19/19 8:36:00 EST, DryWeight Start Date: 02/18/20 Status: Ordered Flovent HFA 220 mcg/inh inhalation aerosol See Instructions, TAKE 2 PUFFS BY MOUTH TWICE A DAY RINSE MOUTH AND THROAT AFTER EACH USE, # 12 Unknown, 11 Refills, Soft Stop, 02/18/20 9:42:00 EDT, [facility]/pharmacy #0957, 154.9, cm, 12/30/19 11:15:00 EDT, [...] 02/18/20 9:43:00 EDT, Route to Pharmacy Electronically, [facility]/pharmacy #0957, 154.9, cm, 12/30/19 11:15:00 EDT,Height, [...] 04/20/20 13:51:00 EST, Route to Pharmacy Electronically, [id number], [facility]/pharmacy #0957, 154.9, cm, 12/30/19 11:15:00 EDT, Height,... Start Date: 04/20/20 Stop Date: 04/15/21 Status: Ordered Stiolto Respimat 60 ACT 2.5 mcg-2.5 mcg/inh inhalation aerosol 2 puffs, Inhalation, Every 24 hours, to replace tiotropium, # 4 Gm, 11 Refills, Maintenance, 02/18/20 9:43:00 EDT, Aerosol, [facility]/pharmacy #0957, 154.9, cm, 12/30/19 11:15:00 EDT, [...] tablet, 11 Refills, Maintenance, 04/20/20 13:59:00 EST, [facility]/pharmacy #0957, 154.9, cm, 12/30/19 11:15:00 EDT, Height, 55.3, kg, 04/19/19 8:36:00 EST, Dry... Start Date: 04/20/20 Status: Ordered Problem List Condition Effective Dates Status Health Status Inform ant Age at leaving school - ged(Confirmed) Active ASCUS(Confirmed) Active 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 Sleep Report(Confirmed) 05/25/11 Active Hep C: Cleared without treatment(Confirmed) Active Clubbing(Confirmed) [facility]: [facility]) Active Esophageal reflux (GERD)(Confirmed) 05/09/12 Active [...]
--- OUTSIDE RECORDS SUMMARY | 2022-12-26 10:36 | XMS_ITS | Continuity of Care Document ---
Author Name Unknown Organization [facility] Address [address] [place] [address]- Care Team Providers Care Director Of Consumer Marketing Name Role Phone Mavis Allen Primary Care Physician Encounter [facility] Date(s): 06/21/22 - 07/21/[address] [address]- Allergies, Adverse Reactions, Alerts Substance Reaction Severity Status Zoloft O/E - Parkinsonian tremor Ac tive Rubber Active Other Environmental Allergy 1 Active 1ELASTIC Immunizations Given and Recorded Vaccine Date Status Refusal Reason [id number] 12y+ bivalent booster vax 05/11/22 Recorded influenza [...] vaccine, inactivated 04/23/08 Give n SARS-CoV-2 mRNA (skuvttl-kugr-orvtt) vax 12/14/21 Given SARS-CoV-2 mRNA (oxewrqb-rynz-qwoen) vax 09/14/21 Given SARS-CoV-2 (COVID-19) mRNA BNT-162b2 [...] Refills, Maintenance, 05/26/22 19:48:00 EST, [facility], 154.8, cm, 05/25/22 13:21:00 EST, Height, 56, kg, 12/09/20 9:16:00 EDT, Dry Weight Start Date: 05/26/22 Status: Ordered BiPAP Machine See Instructions, # 1 units, Maintenance, BiPAP 04/12 with a backup rate of 12 with a heated humidifier. Dx: Cehko wooten respiration, severe (786.04), 09/04/18 15:13:48 EDT Start Date: 09/04/18 Status: Ordered calcium-vitamin D 600 mg-400 intl units oral tablet 1 tablet, By Mouth, 2 times a day with meals, # 180 tablet, 0 Refills, Maintenance, 07/21/22 6:46:00 EDT, [facility] 36690, 90, TAKE 1 TABLET BY MOUTH TWICE [...] tablet, 0 Refills, Maintenance, 07/11/22 15:10:00 EST, [facility]/pharmacy #0957, Partial fill upon patient [...] 99 months Please fax to [facility], [phone],... Start Date: 06/30/17 Status: Ordered CPAP Equipment See Instructions, # 1 each, Refills 12, Tot. Refills 12, Maintenance, BiPAP supplies: Mask, tubing,filters, headgear, chin strap, heated water chamber Dx: ELSA G47.33 Length of need 99 months Please fax to [facility] fax # [phone], 07/02/20 14:50:0... Start Date: 07/02/20 Status: Ordered [...] # 12 each, 11 Refills, [facility], 154.8, cm, 09/14/21 9:50:00 EDT, Height, 56, kg, 12/09/20 9:16:00 EDT, Dry Weight Start Date: 11/17/21 Status: Ordered fluticasone 50 mcg/inh nasal spray See Instructions, USE 1 SPRAY IN EACH NOSTRIL DAILY, # 48 mL, 11 Refills, [facility], 90, USE 1 SPRAY IN EACH NOSTRIL DAILY, 154.8, cm, 09/14/21 9:50:00 EDT, Height, 56, kg, 12/09/20 9:16:00 EDT, Dry Weight Start Date: 11/15/21 Status: Ordered lisinopril 10 mg oral tablet 1, tablet, By Mouth, Daily, # 90 tablet, Refills 3, Route to Pharmacy Electronically, [facility], 154.8, cm, 09/14/21 9:50:00 EDT, Height, 56, [...] each, 11 Refills, Maintenance, 10/13/20 8:35:00 EDT, [facility]/pharmacy #0957, Partial fill upon patient request if the prescription is for a schedule II opioid drug., 1 lozenge By Mouth Every 2 hours, 154.9,... Start Date: 10/13/20 Status: Ordered Nutritional Supplements See Instructions, # 90 each, Refills 3, Tot. Refills 3, Maintenance, [place] Ensure 1 can TID. Dx: C34.90, R63.4, 03/29/21 15:29:00 EST, Supply Start Date: 03/29/21 Status: Ordered omeprazole 20 mg oral enteric coated capsule 1 capsule = 20 mg, By Mouth, Daily, # 90 capsule, 3 Refills, Maintenance, 07/08/21 15:23:00 EST, ECCapsule, [facility]/pharmacy #0957, Partial fill upon patient [...] each, 2 Refills, Maintenance, 07/21/22 6:46:00 EDT, [facility] STORE 56693, 154, cm, 06/22/22 15:01:00 EST, Height, 56, [...] right hand Confirmed Active Palpitations Confirmed Active *[id number] paige Escamilla Confirmed Active Pelvic mass Confirmed [...] Care Team Personnel Name: Mavis Allen Position: [facility] PCO Associate Professional Member Role: PCP Address: Address: [address] [place] [address]. 3rd [place] [address]- Care Team Related Persons Name: JOSELIN SCHMIDT Address: home [address] [place] [address] Name: ALYSE HAUSER Address: home [address] [address] Name: NO, ONE AT THIS TIME
--- OUTSIDE RECORDS SUMMARY | 2022-12-26 10:36 | XMS_ITS | Continuity of Care Document ---
Author Name Unknown Organization [facility] Address [address] [place] [address]- Care Team Providers Care Plumber Pipe Fitting Name Role Phone Gideon Nice DISEASE CONTROL INSPECTOR, Jennyfer Primary Care Physician Encounter [facility] Date(s): 02/10/22 - 03/12/[address] [address]- Allergies, Adverse Reactions, Alerts Substance Reaction Severity Status Zoloft O/E - Parkinsonian tremor Ac tive Other Environmental Allergy 1 Active Rubber Active 1ELASTIC Immunizations Given and Recorded Vaccine Date Status Refusal Reason SARS-CoV-2 mRNA (bmqwmad-cich-cesen) vax 12/14/21 Given SARS-CoV-2 mRNA (gjkfpch-voso-josko) vax 09/14/21 Given SARS-CoV-2 (COVID-19) mRNA BNT-162b2 [...] tablet, 3 Refills, Maintenance, 09/14/21 10:11:00 EDT,Tablet, [facility]/pharmacy #[id number], Partial fill upon patient request if the [...] with meals, # 180 tablet, 1 Refills, [facility], 90, TAKE 1 TABLET BY MOUTH TWICE [...] PhysicianStop 04/15/22 8:28:00 EST, 12/14/21 8:27:00 EDT, [facility]/pharmacy #0957, 154.8, cm, 09/14/21 9:50:00 EDT, Height, 56, kg, 12/09/20 9:16:00 EDT, Dry Weight Start Date: 12/14/21 Stop Date: 04/15/22 Status: Ordered clonazePAM 0.25 mg oral tablet, disintegrating See Instructions, 1 tablet By Mouth 2 times a day as needed. Mass Pat Reviewed. Please fill on/after 01/24/22, # 40 tablet, 2 Refills, Maintenance, 01/24/22 16:19:00 EDT, [facility]/pharmacy #0957, Partial fill upon patient request if the prescription is for... Start Date: 01/24/22 Status: Ordered CPAP Equipment See Instructions, # 1 units, Refills 12, Tot. Refills 12, Maintenance, BIPAP supplies: Mask, tubing, filters, headgear, chin strap, water chamber 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) Lengthof need 99 months Please fax to [facility], [phone],... Start Date: 06/30/17 Status: Ordered CPAP Equipment See Instructions, # 1 each, Refills 12, Tot. Refills 12, Maintenance, BiPAP supplies: Mask, tubing,filters, headgear, chin strap, heated water chamber Dx: ELSA G47.33 Length of need 99 months Please fax to [facility] fax # [phone], 07/02/20 14:50:0... Start Date: 07/02/20 Status: Ordered cyanocobalamin 500 mcg oral tablet 1 tablet = 500 mcg, By Mouth, Daily, on empty stomach, # 90 tablet, 3 Refills, Maintenance, 03/26/21 20:06:00 EST, Tablet, [facility]/pharmacy #0957, Partial fill upon patient request if the prescription isfor a schedule II opioid drug., 154.8, cm, 03/23/21... Start Date: 03/26/21 Status: Ordered Eucerin Unscented topical lotion See Instructions, apply to skin daily, dispense 1 jar, # 1 each, 11 Refills, Maintenance, 09/25/19 16:37:00 EDT, [facility]/pharmacy #0957, apply to skin daily, dispense [...] EACH USE., # 12 each, 11 Refills, [facility], 154.8, cm, 09/14/21 9:50:00 EDT, Height, 56, kg, 12/09/20 9:16:00 EDT, Dry Weight Start Date: 11/17/21 Status: Ordered fluticasone 50 mcg/inh nasal spray See Instructions, USE 1 SPRAY IN EACH NOSTRIL DAILY, # 48 mL, 11 Refills, [facility], 90, USE 1 SPRAY IN EACH NOSTRIL DAILY, 154.8, cm, 09/14/21 9:50:00 EDT, Height, 56, kg, 12/09/20 9:16:00 EDT, Dry Weight Start Date: 11/15/21 Status: Ordered Inderal LA 80 mg oral capsule, extended release 80 mg, 1, capsule, By Mouth, Daily, # 30 capsule, Refills 3, Tot. Refills 3, Maintenance, 06/23/20 10:00:00 EST, Route to Pharmacy Electronically, [facility]/pharmacy #0957, To replace Topamax. Partial fillupon patient request if the prescription is for a... Start Date: 06/23/20 Status: Ordered lisinopril 10 mg oral tablet 1, tablet, By Mouth, Daily, # 90 tablet, Refills 3, Route to Pharmacy Electronically, [facility], 154.8, cm, 09/14/21 9:50:00 EDT, Height, 56, kg, 12/09/20 9:16:00 EDT, Dry Weight Start Date: 12/07/21 Status: Ordered melatonin 3 mg oral tablet 1 tablet = 3 mg, By Mouth, Daily at bedtime, PRN Insomnia, # 60 tablet, 11 Refills, Maintenance, 01/24/22 16:19:00 EDT, [facility]/pharmacy #0957, Partial fill upon patient request if the prescription is for a schedule II opioid drug., 154.8, cm, 09/14/21 9:... Start Date: 01/24/22 Status: Ordered nicotine 2 mg oral transmucosal lozenge 1 lozenge = 2 mg, By Mouth, Every 2 hours, # 72 each, 11 Refills, Maintenance, 10/13/20 8:35:00 EDT, [facility]/pharmacy #0957, Partial fill upon patient request [...] each, Refills 3, Tot. Refills 3, Maintenance, [facility] Ensure 1 can TID. Dx: C34.90, R63.4, 03/29/21 15:29:00 EST, Supply Start Date: 03/29/21 Status: Ordered omeprazole 20 mg oral enteric coated capsule 1 capsule = 20 mg, By Mouth, Daily, # 90 capsule, 3 Refills, Maintenance, 07/08/21 15:23:00 EST, ECCapsule, [facility]/pharmacy #0957, Partial fill upon patient request if the prescription is for a schedule II opioid drug., 154.8, cm, 06/29/21 9:00:00 EST,... Start Date: 07/08/21 Status: Ordered Stiolto Respimat 60 ACT 2.5 mcg-2.5 mcg/inh inhalation aerosol 2 puffs, Inhalation, Every 24 hours, TO REPLACE TIOTROPIUM., # 4 mL, 11 Refills, [facility]106, 154.8, cm, 09/14/21 9:50:00 EDT, Height, 56, kg, 12/09/20 9:16:00 EDT, Dry Weight Start Date: 11/17/21 Status: Ordered Ventolin HFA 108 mcg/inh inhalation aerosol with adapter 2 puffs, Inhalation, 4 times a day, PRN NEEDED FOR WHEEZING, # 18 each, 5 Refills, [facility]190, 154.8, cm, 09/14/21 9:50:00 EDT, Height, 56, [...] in finger of right hand Confirmed Active *[id number] paige Escamilla Confirmed Active Pelvic mass Confirmed [...] Personnel Name: Jennyfer Stokes NP Address: Address: [address] [place] [address]
--- OUTSIDE RECORDS SUMMARY | 2022-12-26 10:36 | XMS_ITS | Continuity of Care Document ---
Author Name Unknown Organization [facility] Address [address] [place] [address]- Care Team Providers Care Automotive Service Writer Name Role Phone Divina MARINELLI, Adalberto Reeder Primary Care Physician Encounter [facility] Date(s): 03/30/20 - 04/29/[address] [address]- Allergies, Adverse Reactions, Alerts Substance Reaction Severity [...] 1 Refills, Maintenance, 07/31/19 11:08:00 EDT, Tablet, [facility]/pharmacy #0957, 154.9, cm, 07/04/19 9:38:00 EST, [...] tablet = 0.5 mg, By Mouth, Once, weight caller to procedure. May repeat X 1, [...] 11 Refills, Maintenance, 02/18/20 9:43:00 EDT, Tablet, [facility]/pharmacy #0957, 1 tablet By Mouth 2 [...] 02/18/20 9:42:00 EDT, Route to Pharmacy Electronically, [facility]/pharmacy #0957, 154.9, cm, 12/30/19 11:15:00 EDT, Height, 55.3, kg, 04/19/19 8:36:00 EST, Dry Weight Start Date: 02/18/20 Status: Ordered cetirizine 10 mg oral tablet 1 tablet = 10 mg, By Mouth, Daily, PRN Other, PRN allergies, # 30 tablet, 11 Refills, Maintenance, 02/18/20 9:43:00 EDT, Tablet, [facility]/pharmacy #0957, 154.9, cm, 12/30/19 11:15:00 EDT, Height, 55.3, kg, 04/19/19 8:36:00 EST, Dry Weight Start Date: 02/18/20 Status: Ordered chantix 1mg tablet 1 tablet = 1 mg, By Mouth, 2 times a day, after meals, to begin after completing starter pack, # 1 pack/packet, 3 Refills, Maintenance, 02/18/20 9:41:00 EDT, Tablet, [facility]/pharmacy #0957, 154.9, cm, 12/30/19 11:15:00 EDT, Height, 55.3, kg, 04/19/19 8:36... Start Date: 02/18/20 Status: Ordered clonazePAM 1 mg oral tablet 1 tablet = 1 mg, By Mouth, 3 times a day, Please fax to [facility] on [address] [phone], # 90 tablet, 2 Refills, Maintenance, 09/17/18 12:46:43 EDT, Tablet Start Date: 09/17/18 Status: Ordered CPAP Equipment See Instructions, # 1 units, Refills 12, Tot. Refills 12, Maintenance, BiPAP supplies: Mask, tubing, filters, headgear, chin strap, heated water chamber Dx: ELSA G47.33 Length of need 99 months Pleasefax to [facility], [phone], 09/04/18 15:13:48 EDT, Co... Start Date: 09/04/18 Status: Ordered CPAP Equipment See Instructions, # 1 units, Refills 12, Tot. Refills 12, Maintenance, BIPAP supplies: Mask, tubing, filters, headgear, chin strap, water chamber 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) Lengthof need 99 months Please fax to [facility], [phone],... Start Date: 06/30/17 Status: Ordered diphenhydrAMINE 25 mg oral tablet 1 tablet = 25 mg, By Mouth, 3 times a day, PRN for allergy symptoms, # 30 tablet, 6 Refills, Maintenance, 04/29/20 17:54:00 EST, Tablet, [facility]/pharmacy #0957, 154.9, cm, 12/30/19 11:15:00 EDT, Height, 55.3, kg, 04/19/19 8:36:00 EST, Dry Weight Start Date: 04/29/20 Status: Ordered Eucerin Unscented topical lotion See Instructions, apply to skin daily, dispense 1 jar, # 1 each, 11 Refills, Maintenance, 09/25/19 16:37:00 EDT, [facility]/pharmacy #0957, apply to skin daily, dispense [...] Gm, 11 Refills, Maintenance, 02/18/20 9:43:00 EDT, [facility]/pharmacy #0957,1 sprays Nasal Daily, 154.9, cm, 12/30/19 11:15:00 EDT, Height, 55.3, kg, 04/19/19 8:36:00 EST, DryWeight Start Date: 02/18/20 Status: Ordered Flovent HFA 220 mcg/inh inhalation aerosol See Instructions, TAKE 2 PUFFS BY MOUTH TWICE A DAY RINSE MOUTH AND THROAT AFTER EACH USE, # 12 Unknown, 11 Refills, Soft Stop, 02/18/20 9:42:00 EDT, [facility]/pharmacy #0957, 154.9, cm, 12/30/19 11:15:00 EDT, Height, 55.3, kg, 04/19/19 8:36:00 EST, Dry Weight Start Date: 02/18/20 Status: Ordered lisinopril 10 mg oral tablet 10 mg, 1, tablet, By Mouth, Daily, # 30 tablet, Refills 11, Tot. Refills 11, Maintenance, 02/18/20 9:43:00 EDT, Route to Pharmacy Electronically, [facility]/pharmacy #0957, 154.9, cm, 12/30/19 11:15:00 EDT,Height, [...] Refills, Maintenance, 02/18/20 9:43:00 EDT, EC Capsule, [facility]/pharmacy #0957, 154.9, cm, 12/30/19 11:15:00 EDT, Height, 55.3, kg, 04/19/19 8:36:00 EST, Dry Weight Start Date: 02/18/20 Status: Ordered ProAir HFA 90 mcg/inh inhalation aerosol with adapter 2, puffs, Inhalation, 4 times a day, PRN, # 1 each, Refills 11, Tot. Refills 11, Maintenance, 04/20/20 13:51:00 EST, Route to Pharmacy Electronically, [id number], [facility]/pharmacy #0957, 154.9, cm, 12/30/19 11:15:00 EDT, Height,... Start Date: 04/20/20 Stop Date: 04/15/21 Status: Ordered Stiolto Respimat 60 ACT 2.5 mcg-2.5 mcg/inh inhalation aerosol 2 puffs, Inhalation, Every 24 hours, to replace tiotropium, # 4 Gm, 11 Refills, Maintenance, 02/18/20 9:43:00 EDT, Aerosol, [facility]/pharmacy #0957, 154.9, cm, 12/30/19 11:15:00 EDT, [...] 3 Refills, Maintenance, 03/16/20 16:51:00 EST, Tablet, [facility]/pharmacy #0957, 154.9, cm, 12/30/19 11:15:00 EDT, [...] Clubbing(Confirmed) Active Drug abuse: Suboxone via [facility](Confirmed) Active Esophageal reflux [...]
--- OUTSIDE RECORDS SUMMARY | 2022-12-26 10:36 | XMS_ITS | Continuity of Care Document ---
Author Name Unknown Organization [facility] Address [address] [address]- Care Team Providers Care Refund Specialist Name Role Phone Divina MARINELLI, Adalberto Reeder Primary Care Physician [facility]counter [facility] Date(s): 06/07/21 - 07/07/21 [facility] [address] [address]- Attending Physician: Admtr, Ar8 Allergies, Adverse Reactions, Alerts [...] 17:04:00 EDT, Aerosol, Route to Pharmacy Electronically, [id number]... Start Date: 08/03/20 Status: Ordered BiPAP Machine [...] Refills, Maintenance, 11/05/20 17:11:00 EDT, Tablet, [facility]/pharmacy #0957, 1 tablet By Mouth [...] 56 tablet, 3 Refills, Acute, [facility], 154.9, cm, 06/11/20 9:48:00 EST, Height, 58, [...] need 99 months Please fax to [facility], [phone],... Start Date: 06/30/17 Status: Ordered CPAP Equipment See Instructions, # 1 each, Refills 12, Tot. Refills 12, Maintenance, BiPAP supplies: Mask, tubing,filters, headgear, chin strap, heated water chamber Dx: ELSA G47.33 Length of need 99 months Please fax to [facility] fax # [phone], 07/02/20 14:50:0... Start Date: 07/02/20 Status: Ordered [...] 10:00:00 EST, Route to Pharmacy Electronically, [facility]/pharmacy #0957, To replace Topamax. Partial fillupon patient request if the prescription is for a... Start Date: 06/23/20 Status: Ordered lisinopril 10 mg oral tablet 10 mg, 1, tablet, By Mouth, Daily, # 90 tablet, Refills 3, Tot. Refills 3, Maintenance, 09/28/20 13:15:00 EDT, Route to Pharmacy Electronically, [facility]/pharmacy #0957, 154.9, cm, 09/22/20 10:26:00 EDT, Height, 58, kg, 06/05/20 12:02:00 EST, Dry Weight Start Date: 09/28/20 Stop Date: 09/23/21 Status: Ordered melatonin 3 mg oral tablet 1 tablet = 3 mg, By Mouth, Daily at bedtime, PRN Insomnia, # 60 tablet, 11 Refills, Maintenance, 03/29/21 21:06:00 EST, [facility]/pharmacy #0957, Partial fill upon patient request if the prescription is for a schedule II opioid drug., 154.8, cm, 03/23/21 11... Start Date: 03/29/21 Status: Ordered nicotine 2 mg oral transmucosal lozenge 1 lozenge = 2 mg, By Mouth, Every 2 hours, # 72 each, 11 Refills, Maintenance, 10/13/20 8:35:00 EDT, [facility]/pharmacy #0957, Partial fill upon patient [...] each, Refills 3, Tot. Refills 3, Maintenance, [place] Ensure 1 can TID. Dx: C34.90, R63.4, [...] Active Clubbing(Confirmed) Active Drug abuse: Suboxone via [facility](Confirmed) Active Esophageal reflux (GERD)(Confirmed) 05/09/12 [...]
--- OUTSIDE RECORDS SUMMARY | 2022-12-26 10:36 | XMS_ITS | Continuity of Care Document ---
Author Name Unknown Organization [facility] Address [address] [place] [address], [address] [place] [address]- Care Team Providers Care Railroad Dispatcher Name Role Phone Divina MARINELLI, Adalberto Reeder Primary Care Physician Encounter [facility] Date(s): 06/11/20 - 06/18/20 [facility] [address] [place] [address], [address] [place], [place] [address] Attending Physician: Kiley Wiseman MD Allergies, Adverse [...] tablet = 0.5 mg, By Mouth, Once, spooler operator automatic to procedure. May repeat X 1, # [...] day, Please fax to [facility] on [address] [phone], # 90 tablet, 2 Refills, Maintenance, 09/17/18 12:46:43 EDT, Tablet Start Date: 09/17/18 Status: Ordered CPAP Equipment See Instructions, # 1 units, Refills 12, Tot. Refills 12, Maintenance, BiPAP supplies: Mask, tubing, filters, headgear, chin strap, heated water chamber Dx: ELSA G47.33 Length of need 99 months Pleasefax to [facility], [phone], 09/04/18 15:13:48 EDT, Co... Start Date: 09/04/18 Status: Ordered CPAP Equipment See Instructions, # 1 units, Refills 12, Tot. 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 Start Date: 06/30/17 Status: Ordered Eucerin Unscented [...] 07/06/20 23:00:00 EST, 06/06/20 19:18:00 EST, Tablet, [facility]/pharmacy #0957, Partial fill upon patient request if the prescription is for a schedule II opioid d... Start Date: 06/06/20 Stop Date: 07/06/20 Status: Ordered ProAir HFA 90 mcg/inh inhalation aerosol with adapter 2, puffs, Inhalation, 4 times a day, PRN, # 1 each, Refills 11, Tot. Refills 11, Maintenance, 04/20/20 13:51:00 EST, Route to Pharmacy Electronically, [id number], [facility]/pharmacy #0957, 154.9, cm, 12/30/19 11:15:00 [...] 3 Refills, Maintenance, 03/16/20 16:51:00 EST, Tablet, [facility]/pharmacy #0957, 154.9, cm, 12/30/19 [...] Active Clubbing(Confirmed) Active Drug abuse: Suboxone via [facility](Confirmed) Active Esophageal reflux (GERD)(Confirmed) 05/09/12 [...] oldest [Reference Range]: 1 Height 154.9 cm (06/11/20 9:48 AM) Weight 57.81 kg (06/11/20 9:48 AM) Oxygen Saturation [94-100 %] 96 % (06/11/20 9:48 AM) Pulse Rate [55-90 bpm] 80 bpm (06/11/20 9:48 AM) Body Mass Index [18.5-24.99] 24.09 (06/11/20 9:48 AM) Blood Pressure [90-138/55-84 mm Hg] 108/ 64mm Hg (06/11/20 9:48 AM) Temperature [96.8-100.4 DegF] 98.1 DegF (06/11/20 9:48 AM) Mode of Delivery (Oxygen) Room air (06/11/20 9:48 AM) Blood pressure sites Arm, right (06/11/20 9:48 AM) Temperature Route Temporal (06/11/20 9:48 AM) Weight Obtained Via Patient/family state d (06/11/20 9:48 AM) Social History Social History Type Response Smoking Status Smoker, current stat us unknown; Other: pt reports smoked 1-2ppd for 50 years; entered on: 05/12/20 Sex 1about 7 cigarettes daily
--- OUTSIDE RECORDS SUMMARY | 2022-12-26 10:36 | XMS_ITS | Continuity of Care Document ---
Author Name Unknown Organization [facility] Address [address] [place] [address]- Care Team Providers Care Facing Baster Jumpbasting Name Role Phone Divina MARINELLI, Adalberto Reeder Primary Care Physician [facility]counter [facility] Date(s): 12/15/20 - 01/14/21 [facility] [address] [place] [address]- Allergies, Adverse Reactions, Alerts Substance Reaction Severity [...] 17:04:00 EDT, Aerosol, Route to Pharmacy Electronically, [id number]... Start Date: 08/03/20 Status: Ordered BiPAP Machine [...] 56 tablet, 3 Refills, Acute, [facility], 154.9, cm, 06/11/20 9:48:00 EST, Height, 58, kg, 06/05/20 12:02:00 EST, Dry Weight Start Date: 08/03/20 Status: Ordered clonazePAM 1 mg oral tablet 1 tablet = 1 mg, By Mouth, 3 times a day, PRN Anxiety, Please dispense on/after 01/07/21, # 70 tablet, 0 Refills, Maintenance, 12/29/20 9:26:00 EDT, Tablet, [facility]/pharmacy #0957, 154.8, cm, 12/09/20 9:16:00 EDT, Height, 56, kg, 12/09/20 9:16:00 EDT, Dry W... Start Date: 12/29/20 Status: Ordered CPAP Equipment See Instructions, # 1 units, Refills 12, Tot. 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 Start Date: 06/30/17 Status: Ordered CPAP Equipment See Instructions, # 1 each, Refills 12, Tot. Refills 12, Maintenance, BiPAP supplies: Mask, tubing,filters, headgear, chin strap, heated water chamber Dx: ELSA G47.33 Length of need 99 months Please fax to [facility] fax # [phone], 07/02/20 14:50:0... Start Date: 07/02/20 Status: Ordered Eucerin Unscented topical lotion See Instructions, apply to skin daily, dispense 1 jar, # 1 each, 11 Refills, Maintenance, 09/25/19 16:37:00 EDT, [facility]/pharmacy #0957, apply to skin daily, dispense 1 [...] Gm, 11 Refills, Maintenance, 11/05/20 17:11:00 EDT, [facility]/pharmacy #0957, 1 sprays Nasal Daily, 154.9, cm, 10/13/20 7:56:00 EDT, Height, 58, kg, 06/05/20 12:02:00 EST, Dry Weight Start Date: 11/05/20 Status: Ordered Flovent HFA 220 mcg/inh inhalation aerosol See Instructions, TAKE 2 PUFFS BY MOUTH TWICE A DAY RINSE MOUTH AND THROAT AFTER EACH USE, # 12 Unknown, 11 Refills, Soft Stop, 11/05/20 17:11:00 EDT, [facility]/pharmacy #0957, 154.9, cm, 10/13/20 7:56:00 EDT, Height, 58, kg, 06/05/20 12:02:00 EST, Dry Weight Start Date: 11/05/20 Status: Ordered Inderal LA 80 mg oral capsule, extended release 80 mg, 1, capsule, By Mouth, Daily, # 30 capsule, Refills 3, Tot. Refills 3, Maintenance, 06/23/20 10:00:00 EST, Route to Pharmacy Electronically, [facility]/pharmacy #0957, To replace Topamax. Partial fillupon patient request if the prescription is for a... Start Date: 06/23/20 Status: Ordered lisinopril 10 mg oral tablet 10 mg, 1, tablet, By Mouth, Daily, # 90 tablet, Refills 3, Tot. Refills 3, Maintenance, 09/28/20 13:15:00 EDT, Route to Pharmacy Electronically, [facility]/pharmacy #0957, 154.9, cm, 09/22/20 10:26:00 EDT, Height, [...] 11 Refills, Maintenance, 11/05/20 17:11:00 EDT, Aerosol, [facility]/pharmacy #0957, 154.9, cm, 10/13/20 7:56:00 EDT, Height, [...] 11 Refills, Maintenance, 11/12/20 9:46:00 EDT, Aerosol, [facility]/pharmacy #0957, [...] Active Clubbing(Confirmed) Active Drug abuse: [facility]) Active Esophageal reflux (GERD)(Confirmed) [...]
--- OUTSIDE RECORDS SUMMARY | 2022-12-26 10:36 | XMS_ITS | Continuity of Care Document ---
Author Name Unknown Organization [facility] Address [address] [place] [address]- Care Team Providers Care Swaging Machine Operator Name Role Phone Gideon Nice PEN TENDER, Jennyfer Primary Care Physician Encounter [facility] Date(s): 03/16/22 - 04/15/[address] [address]- Allergies, Adverse Reactions, Alerts Substance Reaction Severity [...] vaccine, inactivated 04/23/08 Give n SARS-CoV-2 mRNA (roejtrv-hajd-fxnbe) vax 12/14/21 Given SARS-CoV-2 mRNA (zonyuuf-kwoq-hgypi) vax 09/14/21 Given SARS-CoV-2 (COVID-19) mRNA BNT-162b2 [...] 3 Refills, Maintenance, 09/14/21 10:11:00 EDT,Tablet, [facility], Partial fill upon patient request if the [...] with meals, # 180 tablet, 1 Refills, [facility] STORE 25540, 90, TAKE 1 TABLET BY MOUTH TWICE [...] 4:50:00 EST, [facility]/pharmacy #0937, Partial fill upon patient request if the prescription is for a schedule II opioid drug., 1... Start Date: 03/28/22 Status: Ordered CPAP Equipment See Instructions, # 1 units, Refills 12, Tot. 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 Start Date: 06/30/17 Status: Ordered CPAP Equipment See Instructions, # 1 each, Refills 12, Tot. Refills 12, Maintenance, BiPAP supplies: Mask, tubing,filters, headgear, chin strap, heated water chamber Dx: ELSA G47.33 Length of need 99 months Please fax to [facility] fax # [phone], 07/02/20 14:50:0... Start Date: 07/02/20 Status: Ordered [...] EACH USE., # 12 each, 11 Refills, [facility] STORE 14804, 154.8, cm, 09/14/21 9:50:00 EDT, Height, 56, kg, 12/09/20 9:16:00 EDT, Dry Weight Start Date: 11/17/21 Status: Ordered fluticasone 50 mcg/inh nasal spray See Instructions, USE 1 SPRAY IN EACH NOSTRIL DAILY, # 48 mL, 11 Refills, [facility] STORE 68615, 90, USE 1 SPRAY IN EACH NOSTRIL DAILY, 154.8, cm, 09/14/21 9:50:00 EDT, Height, 56, kg, 12/09/20 9:16:00 EDT, Dry Weight Start Date: 11/15/21 Status: Ordered Inderal LA 80 mg oral capsule, extended release 80 mg, 1, capsule, By Mouth, Daily, # 30 capsule, Refills 3, Tot. Refills 3, Maintenance, 06/23/20 10:00:00 EST, Route to Pharm[facility] Electronically, [facility], To replace Topamax. Partial fillupon patient request if the prescription is for a... Start Date: 06/23/20 Status: Ordered lisinopril 10 mg oral tablet 1, tablet, By Mouth, Daily, # 90 tablet, Refills 3, Route to Pharmacy Electronically, [facility] STORE 22034, 154.8, cm, 09/14/21 9:50:00 EDT, Height, 56, kg, 12/09/20 9:16:00 EDT, Dry Weight Start Date: 12/07/21 Status: Ordered melatonin 3 mg oral tablet 2 tablet = 6 mg, By Mouth, Daily at bedtime, PRN Insomnia, # 60 tablet, 2 Refills, Maintenance, 04/13/22 16:50:00 EST, [facility]/pharmacy #0957, [...] each, Refills 3, Tot. Refills 3, Maintenance, [place] Ensure 1 can TID. Dx: C34.90, R63.4, [...] # 4 mL, 11 Refills, [facility], 154.8, cm, 09/14/21 9:50:00 EDT, Height, 56, kg, 12/09/20 9:16:00 EDT, Dry Weight Start Date: 11/17/21 Status: Ordered Ventolin HFA 108 mcg/inh inhalation aerosol with adapter 2 puffs, Inhalation, 4 times a day, PRN NEEDED FOR WHEEZING, # 18 each, 5 Refills, [facility], 154.8, cm, 09/14/21 9:50:00 EDT, Height, 56, [...] Clubbing Confirmed Active Drug abuse: Suboxone via [facility] Confirmed Active Esophageal reflux (GERD) Confirmed 05/09/12 Active JASON (generalized anxiety disorder) Confirmed Active HPV: Positive in 07/15; 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, negative in 10/16 Confirmed Active Hypertension Confirmed 08/23/10 Active Lung cancer Confirmed Active Lung nodules Confirmed Active Opioid use disorder Confirmed Active Osteoporosis Confirmed Active Pain in finger of right hand Confirmed Active *[id number] paige Escamilla Confirmed Active Pelvic mass Confirmed [...] Team Personnel Name: Jennyfer Stokes NP Position: [facility] PCO Associate Professional Member Role: PCP Address: Address: [address] [place] [address]- [place] Care Team Related Persons Name: JOSELIN SCHMIDT Address: home [address] [place] [address] Name: ALYSE HAUSER Address: home [address] [place] [id number] Name: NO, ONE AT THIS TIME
--- OUTSIDE RECORDS SUMMARY | 2022-12-26 10:36 | XMS_ITS | Continuity of Care Document ---
Author Name Unknown Organization [facility] Address [address] [place] [address]- Care Team Providers Care Marking Devices Assembler Name Role Phone Adalberto Murcia MD Primary Care Physician [place] [facility] [place] [facility] [address] [place], [place] [address] Attending Physician: Angelina Mendoza Admitting Physician: AdmtrAngelina [...] 17:04:00 EDT, Aerosol, Route to Pharmacy Electronically, [id number]... Start Date: 08/03/20 Status: Ordered BiPAP Machine [...] 56 tablet, 3 Refills, Acute, [facility], 154.9, cm, 06/11/20 9:48:00 EST, Height, 58, kg, 06/05/20 12:02:00 EST, Dry Weight Start Date: 08/03/20 Status: Ordered clonazePAM 1 mg oral tablet 1 tablet = 1 mg, By Mouth, 3 times a day, PRN Anxiety, Please dispense on/after 02/06/21, # 70 tablet, 0 Refills, Maintenance, 02/01/21 9:07:00 EDT, Tablet, [facility]/pharmacy #0957, 154.8, cm, 12/09/20 9:16:00 EDT, Height, 56, kg, 12/09/20 9:16:00 EDT, Dry... Start Date: 02/01/21 Status: Ordered CPAP Equipment See Instructions, # 1 units, Refills 12, Tot. 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 Start Date: 06/30/17 Status: Ordered CPAP Equipment See Instructions, # 1 each, Refills 12, Tot. Refills 12, Maintenance, BiPAP supplies: Mask, tubing,filters, headgear, chin strap, heated water chamber Dx: ELSA G47.33 Length of need 99 months Please fax to [facility] fax # [phone], 07/02/20 14:50:0... Start Date: 07/02/20 Status: Ordered [...] Gm, 11 Refills, Maintenance, 11/05/20 17:11:00 EDT, [facility]/pharmacy #0957, 1 sprays Nasal Daily, 154.9, cm, 10/13/20 7:56:00 EDT, Height, 58, kg, 06/05/20 12:02:00 EST, Dry Weight Start Date: 11/05/20 Status: Ordered Flovent HFA 220 mcg/inh inhalation aerosol See Instructions, TAKE 2 PUFFS BY MOUTH TWICE A DAY RINSE MOUTH AND THROAT AFTER EACH USE, # 12 Unknown, 11 Refills, Soft Stop, 11/05/20 17:11:00 EDT, [facility]/pharmacy #0957, 154.9, cm, 10/13/20 7:56:00 EDT, [...] 09/28/20 13:15:00 EDT, Route to Pharmacy Electronically, [facility]/pharmacy #0957, 154.9, cm, 09/22/20 10:26:00 EDT, Height, 58, kg, 06/05/20 12:02:00 EST, Dry Weight Start Date: 09/28/20 Stop Date: 09/23/21 Status: Ordered nicotine 2 mg oral transmucosal lozenge 1 lozenge = 2 mg, By Mouth, Every 2 hours, # 72 each, 11 Refills, Maintenance, 10/13/20 8:35:00 EDT, [facility]/pharmacy #0957, Partial fill upon patient request [...] 11 Refills, Maintenance, 11/05/20 17:11:00 EDT, Aerosol, [facility]/pharmacy #0957, 154.9, cm, 10/13/20 7:56:00 EDT, [...] Clubbing(Confirmed) [facility]: [facility] Active Esophageal reflux (GERD)(Confirmed) 05/09/12 Active [...]
--- OUTSIDE RECORDS SUMMARY | 2022-12-26 10:36 | XMS_ITS | Continuity of Care Document ---
Author Name Unknown Organization [facility] Address [address] [place] [address]- Care Team Providers Care Agricultural Lender Name Role Phone Gideon Nice DESIGN RELEASE ENGINEER, Jennyfer Primary Care Physician Encounter [facility] Date(s): 04/18/22 - 05/18/[address] [address]- Allergies, Adverse Reactions, Alerts Substance Reaction Severity [...] vaccine, inactivated 04/23/08 Give n SARS-CoV-2 mRNA (qpjzyiw-wfor-uuqyd) vax 12/14/21 Given SARS-CoV-2 mRNA (vgrybzh-cazf-yyrpe) vax 09/14/21 Given SARS-CoV-2 (COVID-19) mRNA BNT-162b2 [...] 3 Refills, Maintenance, 09/14/21 10:11:00 EDT,Tablet, [facility], Partial fill upon patient request if the [...] with meals, # 180 tablet, 1 Refills, [facility] STORE 42614, 90, TAKE 1 TABLET BY MOUTH TWICE [...] tablet, 0 Refills, Maintenance, 05/12/22 8:22:00 EST, [facility]/pharmacy #0944, Partial fill upon patient request if the prescription is for a schedule II opioid drug., 1... Start Date: 05/12/22 Status: Ordered CPAP Equipment See Instructions, # 1 units, Refills 12, Tot. 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 Start Date: 06/30/17 Status: Ordered CPAP Equipment See Instructions, # 1 each, Refills 12, Tot. Refills 12, Maintenance, BiPAP supplies: Mask, tubing,filters, headgear, chin strap, heated water chamber Dx: ELSA G47.33 Length of need 99 months Please fax to [facility] fax # [phone], 07/02/20 14:50:0... Start Date: 07/02/20 Status: Ordered cyanocobalamin 500 mcg oral tablet 1 tablet = 500 mcg, By Mouth, Daily, on empty stomach, # 90 tablet, 3 Refills, Maintenance, 03/26/21 20:06:00 EST, Tablet, [facility]/pharmacy #0957, Partial fill [...] EACH USE., # 12 each, 11 Refills, [facility] STORE 90908, 154.8, cm, 09/14/21 9:50:00 EDT, Height, 56, kg, 12/09/20 9:16:00 EDT, Dry Weight Start Date: 11/17/21 Status: Ordered fluticasone 50 mcg/inh nasal spray See Instructions, USE 1 SPRAY IN EACH NOSTRIL DAILY, # 48 mL, 11 Refills, [facility] STORE 91167, 90, USE 1 SPRAY IN EACH NOSTRIL [...] tablet, Refills 3, Route to Pharmacy Electronically, [facility] STORE 04526, 154.8, cm, 09/14/21 9:50:00 EDT, Height, 56, kg, 12/09/20 9:16:00 EDT, Dry Weight Start Date: 12/07/21 Status: Ordered melatonin 3 mg oral tablet 2 tablet = 6 mg, By Mouth, Daily at bedtime, PRN Insomnia, # 60 tablet, 2 Refills, Maintenance, 04/13/22 16:50:00 EST, [facility]/pharmacy #0957, Partial [...] each, Refills 3, Tot. Refills 3, Maintenance, [place] Ensure 1 can TID. Dx: C34.90, R63.4, 03/29/21 15:29:00 EST, Supply Start Date: 03/29/21 Status: Ordered omeprazole 20 mg oral enteric coated capsule 1 capsule = 20 mg, By Mouth, Daily, # 90 capsule, 3 Refills, Maintenance, 07/08/21 15:23:00 EST, ECCapsule, [facility]/pharmacy #0957, Partial fill upon patient request if the prescription is for a schedule II opioid drug., 154.8, cm, 06/29/21 9:00:00 EST,... Start Date: 07/08/21 Status: Ordered Stiolto Respimat 60 ACT 2.5 mcg-2.5 mcg/inh inhalation aerosol 2 puffs, Inhalation, Every 24 hours, TO REPLACE TIOTROPIUM., # 4 mL, 11 Refills, [facility], 154.8, cm, 09/14/21 9:50:00 EDT, Height, 56, kg, 12/09/20 9:16:00 EDT, Dry Weight Start Date: 11/17/21 Status: Ordered Ventolin HFA 108 mcg/inh inhalation aerosol with adapter 2 puffs, Inhalation, 4 times a day, PRN NEEDED FOR WHEEZING, # 18 each, 5 Refills, [facility], 154.8, cm, 09/14/21 9:50:00 EDT, Height, 56, [...] Clubbing Confirmed Active Drug abuse: Suboxone via [facility] Confirmed Active Esophageal reflux (GERD) Confirmed 05/09/12 Active JASON (generalized anxiety disorder) Confirmed Active HPV: Positive in 07/15; 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, negative in 10/16 Confirmed Active Hypertension Confirmed 08/23/10 Active Lung cancer Confirmed Active Lung nodules Confirmed Active Opioid use disorder Confirmed Active Osteoporosis Confirmed Active Pain in finger of right hand Confirmed Active *[id number] paige Escamilla Confirmed Active Pelvic mass Confirmed [...] Team Personnel Name: Jennyfer Stokes NP Position: [facility] PCO Associate Professional Member Role: PCP Address: Address: [address] [place] [address]- Care Team Related Persons Name: JOSELIN SCHMIDT Address: home [address] [place] [address] Name: ALYSE HAUSER Address: home [address] [place] [address] Name: NO, ONE AT THIS TIME
--- OUTSIDE RECORDS SUMMARY | 2022-12-26 10:36 | XMS_ITS | Continuity of Care Document ---
Author Name Unknown Organization [facility] Address [address] [place] [address]- Care Team Providers Care Supervisor Audit Clerks Name Role Phone Divina MARINELLI, Adalberto Reeder Primary Care Physician Encounter [facility] Date(s): 12/24/21 - 01/23/[address] [address]- Allergies, Adverse Reactions, Alerts Substance Reaction Severity Status Zoloft O/E - Parkinsonian tremor Ac tive Rubber Active Other Environmental Allergy 1 Active 1ELASTIC Immunizations Given and Recorded Vaccine Date Status Refusal Reason SARS-CoV-2 mRNA (kjauvim-ktor-jeemb) vax 12/14/21 Given SARS-CoV-2 mRNA (nzlolrq-zniq-ilptu) vax 09/14/21 Given SARS-CoV-2 (COVID-19) mRNA BNT-162b2 [...] tablet, 3 Refills, Maintenance, 09/14/21 10:11:00 EDT,Tablet, [facility]/pharmacy #0982, Partial fill upon patient request if the [...] # 180 tablet, 1 Refills, [facility], 90, TAKE 1 TABLET BY MOUTH TWICE [...] PhysicianStop 04/15/22 8:28:00 EST, 12/14/21 8:27:00 EDT, [facility]/pharmacy #0957, 154.8, cm, 09/14/21 9:50:00 EDT, Height, 56, kg, 12/09/20 9:16:00 EDT, Dry Weight Start Date: 12/14/21 Stop Date: 04/15/22 Status: Ordered clonazePAM 0.25 mg oral tablet, disintegrating See Instructions, 1 tablet By Mouth 2 times a day, may take one more at bedtime as needed. [place] PatReviewed. Please fill on/after 12/06/21, # 62 tablet, 1 Refills, Maintenance, 11/26/21 15:32:00 EDT, [facility]/pharmacy #0957, Partial fill upon patient reque... Start Date: 11/26/21 Status: Ordered CPAP Equipment See Instructions, # 1 units, Refills 12, Tot. 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 Start Date: 06/30/17 Status: Ordered CPAP Equipment See Instructions, # 1 each, Refills 12, Tot. Refills 12, Maintenance, BiPAP supplies: Mask, tubing,filters, headgear, chin strap, heated water chamber Dx: ELSA G47.33 Length of need 99 months Please fax to [facility] fax # [phone], 07/02/20 14:50:0... Start Date: 07/02/20 Status: Ordered cyanocobalamin 500 mcg oral tablet 1 tablet = 500 mcg, By Mouth, Daily, on empty stomach, # 90 tablet, 3 Refills, Maintenance, 03/26/21 20:06:00 EST, Tablet, [facility]/pharmacy #0957, [...] EACH USE., # 12 each, 11 Refills, [email or web address] STORE 78787, 154.8, cm, 09/14/21 9:50:00 EDT, Height, 56, kg, 12/09/20 9:16:00 EDT, Dry Weight Start Date: 11/17/21 Status: Ordered fluticasone 50 mcg/inh nasal spray See Instructions, USE 1 SPRAY IN EACH NOSTRIL DAILY, # 48 mL, 11 Refills, [email or web address] STORE 91867, 90, USE 1 SPRAY IN EACH NOSTRIL DAILY, 154.8, cm, 09/14/21 9:50:00 EDT, Height, 56, kg, 12/09/20 9:16:00 EDT, Dry Weight Start Date: 11/15/21 Status: Ordered Inderal LA 80 mg oral capsule, extended release 80 mg, 1, capsule, By Mouth, Daily, # 30 capsule, Refills 3, Tot. Refills 3, Maintenance, 06/23/20 10:00:00 EST, Route to Pharmacy Electronically, [facility]/pharmacy #0957, To replace Topamax. Partial fillupon patient request if the prescription is for a... Start Date: 06/23/20 Status: Ordered lisinopril 10 mg oral tablet 1, tablet, By Mouth, Daily, # 90 tablet, Refills 3, Route to Pharmacy Electronically, [facility] STORE 24547, 154.8, cm, 09/14/21 9:50:00 EDT, Height, 56, kg, 12/09/20 9:16:00 EDT, Dry Weight Start Date: 12/07/21 Status: Ordered melatonin 3 mg oral tablet 1 tablet = 3 mg, By Mouth, Daily at bedtime, PRN Insomnia, # 60 tablet, 11 Refills, Maintenance, 03/29/21 21:06:00 EST, [facility]/pharmacy #0957, Partial fill upon patient request if the prescription is for a schedule II opioid drug., 154.8, cm, 03/23/21 11... Start Date: 03/29/21 Status: Ordered nicotine 2 mg oral transmucosal lozenge 1 lozenge = 2 mg, By Mouth, Every 2 hours, # 72 each, 11 Refills, Maintenance, 10/13/20 8:35:00 EDT, [facility]/pharmacy #0957, Partial [...] each, Refills 3, Tot. Refills 3, Maintenance, [place] Ensure 1 can TID. Dx: C34.90, R63.4, 03/29/21 15:29:00 EST, Supply Start Date: 03/29/21 Status: Ordered omeprazole 20 mg oral enteric coated capsule 1 capsule = 20 mg, By Mouth, Daily, # 90 capsule, 3 Refills, Maintenance, 07/08/21 15:23:00 EST, ECCapsule, [facility]/pharmacy #0957, Partial fill upon patient request if the prescription is for a schedule II opioid drug., 154.8, cm, 06/29/21 9:00:00 EST,... Start Date: 07/08/21 Status: Ordered Stiolto Respimat 60 ACT 2.5 mcg-2.5 mcg/inh inhalation aerosol 2 puffs, Inhalation, Every 24 hours, TO REPLACE TIOTROPIUM., # 4 mL, 11 Refills, [email or web address] STORE 80342, 154.8, cm, 09/14/21 9:50:00 EDT, Height, 56, kg, 12/09/20 9:16:00 EDT, Dry Weight Start Date: 11/17/21 Status: Ordered Ventolin HFA 108 mcg/inh inhalation aerosol with adapter 2 puffs, Inhalation, 4 times a day, PRN NEEDED FOR WHEEZING, # 18 each, 5 Refills, [email or web address] STORE 14956, 154.8, cm, 09/14/21 9:50:00 EDT, Height, 56, [...] Team Personnel Name: Adalberto Murcia MD Address: [address] [place] [address]-
--- OUTSIDE RECORDS SUMMARY | 2022-12-26 10:37 | XMS_ITS | Continuity of Care Document ---
Author Name Unknown Organization [facility] Address [address] [place] [address]- Care Team Providers Care Clinical Laboratory Manager Name Role Phone Adalberto Murcia MD Primary Care Physician Encounter [facility] [place] Date(s): 12/11/20 - 02/05/21 [facility] [address] [place] [address]- Attending Physician: Marie Muir MD Admitting Physician: [...] 17:04:00 EDT, Aerosol, Route to Pharmacy Electronically, [id number]... Start Date: 08/03/20 Status: Ordered BiPAP Machine [...] 56 tablet, 3 Refills, Acute, [facility], 154.9, cm, 06/11/20 9:48:00 EST, Height, 58, kg, 06/05/20 12:02:00 EST, Dry Weight Start Date: 08/03/20 Status: Ordered clonazePAM 1 mg oral tablet 1 tablet = 1 mg, By Mouth, 3 times a day, PRN Anxiety, Please dispense on/after 02/06/21, # 70 tablet, 0 Refills, Maintenance, 02/01/21 9:07:00 EDT, Tablet, [facility]/pharmacy #0957, 154.8, cm, 12/09/20 9:16:00 EDT, Height, 56, kg, 12/09/20 9:16:00 EDT, Dry... Start Date: 02/01/21 Status: Ordered CPAP Equipment See Instructions, # 1 units, Refills 12, Tot. 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 Start Date: 06/30/17 Status: Ordered CPAP Equipment See Instructions, # 1 each, Refills 12, Tot. Refills 12, Maintenance, BiPAP supplies: Mask, tubing,filters, headgear, chin strap, heated water chamber Dx: ELSA G47.33 Length of need 99 months Please fax to [facility] fax # [phone], 07/02/20 14:50:0... Start Date: 07/02/20 Status: Ordered Eucerin Unscented topical lotion See Instructions, apply to skin daily, dispense 1 jar, # 1 each, 11 Refills, Maintenance, 09/25/19 16:37:00 EDT, [facility]/pharmacy #0957, apply to skin daily, dispense 1 [...] 11 Refills, Soft Stop, 11/05/20 17:11:00 EDT, [facility]/pharmacy #0957, 154.9, cm, 10/13/20 7:56:00 EDT, Height, [...] 11 Refills, Maintenance, 11/05/20 17:11:00 EDT, Aerosol, [facility]/pharmacy #0957, 154.9, cm, 10/13/20 7:56:00 EDT, Height, [...] Clubbing(Confirmed) [facility]: [facility] Active Esophageal reflux (GERD)(Confirmed) 05/09/12 Active [...]
--- OUTSIDE RECORDS SUMMARY | 2022-12-26 10:37 | XMS_ITS | Continuity of Care Document ---
Author Name Unknown Organization [facility] Address [address] [address]- Care Team Providers Care Engraver Signature Name Role Phone Adalberto Murcia MD Primary Care Physician Encounter [facility] [place] Date(s): 07/05/21 - 08/04/21 [facility] [address] [place] [id number] Attending Physician: Admrobyn, Angelina Admitting Physician: AdmtrAngelina [...] 17:04:00 EDT, Aerosol, Route to Pharmacy Electronically, [id number]... Start Date: 08/03/20 Status: Ordered BiPAP Machine [...] 56 tablet, 3 Refills, Acute, [facility], 154.9, cm, 06/11/20 9:48:00 EST, Height, 58, [...] need 99 months Please fax to [facility], [phone],... Start Date: 06/30/17 Status: Ordered CPAP Equipment See Instructions, # 1 each, Refills 12, Tot. Refills 12, Maintenance, BiPAP supplies: Mask, tubing,filters, headgear, chin strap, heated water chamber Dx: ELSA G47.33 Length of need 99 months Please fax to [facility] fax # [phone], 07/02/20 14:50:0... Start Date: 07/02/20 Status: Ordered [...] each, Refills 3, Tot. Refills 3, Maintenance, [place] Ensure 1 can TID. Dx: C34.90, R63.4, 03/29/21 15:29:00 EST, Supply Start Date: 03/29/21 Status: Ordered omeprazole 20 mg oral enteric coated capsule 1 capsule = 20 mg, By Mouth, Daily, # 90 capsule, 3 Refills, Maintenance, 07/08/21 15:23:00 EST, ECCapsule, [facility]/pharmacy #0957, Partial fill [...] 11 Refills, Maintenance, 11/12/20 9:46:00 EDT, Aerosol, [facility]/pharmacy #0957, Partial fill [...] Active Clubbing(Confirmed) Active Drug abuse: Suboxone via [facility](Confirmed) Active Esophageal reflux (GERD)(Confirmed) 05/09/12 [...]
--- OUTSIDE RECORDS SUMMARY | 2022-12-26 10:37 | XMS_ITS | Continuity of Care Document ---
Author Name Unknown Organization [facility] Address [address] [place] [address]- Care Team Providers Care Pearl Peller Name Role Phone Divina MARINELLI, Adalberto Reeder Primary Care Physician [facility]counter [facility] Date(s): 01/29/21 - 02/28/[address] [address]- Allergies, Adverse Reactions, Alerts Substance Reaction Severity [...] 17:04:00 EDT, Aerosol, Route to Pharmacy Electronically, [id number]... Start Date: 08/03/20 Status: Ordered BiPAP Machine [...] 56 tablet, 3 Refills, Acute, [facility], 154.9, cm, 06/11/20 9:48:00 EST, Height, 58, kg, 06/05/20 12:02:00 EST, Dry Weight Start Date: 08/03/20 Status: Ordered clonazePAM 1 mg oral tablet 1 tablet = 1 mg, By Mouth, 3 times a day, PRN Anxiety, Please dispense on/after 03/08/21, # 60 tablet, 0 Refills, Maintenance, 02/22/21 15:35:00 EDT, Tablet, [facility]/pharmacy #0957, 154.8, cm, 12/09/20 9:16:00 EDT, Height, 56, kg, 12/09/20 9:16:00 EDT, Dry... Start Date: 02/22/21 Status: Ordered CPAP Equipment See Instructions, # 1 units, Refills 12, Tot. 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 Start Date: 06/30/17 Status: Ordered CPAP Equipment See Instructions, # 1 each, Refills 12, Tot. Refills 12, Maintenance, BiPAP supplies: Mask, tubing,filters, headgear, chin strap, heated water chamber Dx: ELSA G47.33 Length of need 99 months Please fax to [facility] fax # [phone], 07/02/20 14:50:0... Start Date: 07/02/20 Status: Ordered [...] Gm, 11 Refills, Maintenance, 11/05/20 17:11:00 EDT, [facility]/pharmacy #0957, 1 sprays Nasal Daily, 154.9, cm, 10/13/20 7:56:00 EDT, Height, 58, kg, 06/05/20 12:02:00 EST, Dry Weight Start Date: 11/05/20 Status: Ordered Flovent HFA 220 mcg/inh inhalation aerosol See Instructions, TAKE 2 PUFFS BY MOUTH TWICE A DAY RINSE MOUTH AND THROAT AFTER EACH USE, # 12 Unknown, 11 Refills, Soft Stop, 11/05/20 17:11:00 EDT, [facility]/pharmacy #0957, 154.9, cm, 10/13/20 7:56:00 EDT, [...] 09/28/20 13:15:00 EDT, Route to Pharmacy Electronically, [facility]/pharmacy #0957, 154.9, cm, 09/22/20 10:26:00 EDT, [...] 11 Refills, Maintenance, 11/05/20 17:11:00 EDT, Aerosol, [facility]/pharmacy #0957, 154.9, cm, 10/13/20 7:56:00 EDT, [...] 11 Refills, Maintenance, 11/12/20 9:46:00 EDT, Aerosol, [facility]/pharmacy #0957, Partial fill upon patient [...] Active Clubbing(Confirmed) Active Drug abuse: Suboxone via [facility](Confirmed) Active Esophageal reflux (GERD)(Confirmed) 05/09/12 [...]
--- OUTSIDE RECORDS SUMMARY | 2022-12-26 10:37 | XMS_ITS | Continuity of Care Document ---
Author Name Unknown Organization [facility]UN[facility] SERVICES MANAGER Oncolog y Address [address] [place] [address]- Care Team Providers Care Computer Systems Support Specialist Name Role Phone Divina MARINELLI, Adalberto Reeder Primary Care Physician [facility]counter [facility] Date(s): 03/25/21 - 04/24/21 [facility] COMMUNITY SERVICES MANAGER Oncology [address] [place] [address]- Allergies, Adverse Reactions, Alerts Substance Reaction Severity [...] 17:04:00 EDT, Aerosol, Route to Pharmacy Electronically, [id number]... Start Date: 08/03/20 Status: Ordered BiPAP Machine [...] 11 Refills, Maintenance, 11/05/20 17:11:00 EDT, Tablet, [facility]/pharmacy #0957, 1 tablet By Mouth [...] 56 tablet, 3 Refills, Acute, [facility], 154.9, cm, 06/11/20 9:48:00 EST, Height, 58, kg, 06/05/20 12:02:00 EST, Dry Weight Start Date: 08/03/20 Status: Ordered clonazePAM 1 mg oral tablet 1 tablet = 1 mg, By Mouth, 2 times a day, PRN Anxiety, Please dispense on/after 05/08/21, # 60 tablet, 0 Refills, Maintenance, 04/20/21 13:33:00 EST, Tablet, [facility]/pharmacy #0957, 154.8, cm, 04/20/21 13:17:00 EST, Height, 56, kg, 12/09/20 9:16:00 EDT, Dry... Start Date: 04/20/21 Status: Ordered CPAP Equipment See Instructions, # 1 units, Refills 12, Tot. 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 Start Date: 06/30/17 Status: Ordered CPAP Equipment See Instructions, # 1 each, Refills 12, Tot. Refills 12, Maintenance, BiPAP supplies: Mask, tubing,filters, headgear, chin strap, heated water chamber Dx: ELSA G47.33 Length of need 99 months Please fax to [facility] fax # [phone], 07/02/20 14:50:0... Start Date: 07/02/20 Status: Ordered [...] 06/23/20 10:00:00 EST, Route to Pharmacy Electronically, [facility]/pharmacy #0957, To replace Topamax. Partial fillupon patient request if the prescription is for a... Start Date: 06/23/20 Status: Ordered lisinopril 10 mg oral tablet 10 mg, 1, tablet, By Mouth, Daily, # 90 tablet, Refills 3, Tot. Refills 3, Maintenance, 09/28/20 13:15:00 EDT, Route to Pharmacy Electronically, [facility]/pharmacy #0957, 154.9, cm, 09/22/20 10:26:00 EDT, Height, 58, kg, 06/05/20 12:02:00 EST, Dry Weight Start Date: 09/28/20 Stop Date: 09/23/21 Status: Ordered melatonin 3 mg oral tablet 1 tablet = 3 mg, By Mouth, Daily at bedtime, PRN Insomnia, # 60 tablet, 11 Refills, Maintenance, 03/29/21 21:06:00 EST, [facility]/pharmacy #0957, Partial [...] each, Refills 3, Tot. Refills 3, Maintenance, [place] [facility] 1 can TID. Dx: C34.90, R63.4, [...] Active Clubbing(Confirmed) Active Drug abuse: Suboxone via [facility](Confirmed) Active Esophageal reflux (GERD)(Confirmed) 05/09/12 [...]
--- OUTSIDE RECORDS SUMMARY | 2022-12-26 10:37 | XMS_ITS | Continuity of Care Document ---
Author Name Unknown Organization [facility] Address [address] [place] [address]- Care Team Providers Care Grocery Manager Name Role Phone Divina MARINELLI, Adalberto Reeder Primary Care Physician Encounter [facility] Date(s): 04/30/20 - 05/30/[address] [address]- Allergies, Adverse Reactions, Alerts Substance Reaction Severity [...] 1 Refills, Maintenance, 07/31/19 11:08:00 EDT, Tablet, [facility]/pharmacy #0957, 154.9, cm, 07/04/19 9:38:00 EST, [...] 0.5 mg, By Mouth, Once, call center receptionist to procedure. May repeat X 1, # 2 tablet, 0 Refills, Soft Stop, 04/24/20 11:56:00 EST, Tablet, [facility]/pharmacy #0957, Partial fill upon patient request [...] 11 Refills, Maintenance, 02/18/20 9:43:00 EDT, Tablet, [facility]/pharmacy #0957, 1 tablet By Mouth 2 [...] 02/18/20 9:42:00 EDT, Route to Pharmacy Electronically, [facility]/pharmacy #0957, 154.9, cm, 12/30/19 11:15:00 EDT, Height, 55.3, kg, 04/19/19 8:36:00 EST, Dry Weight Start Date: 02/18/20 Status: Ordered cetirizine 10 mg oral tablet 1 tablet = 10 mg, By Mouth, Daily, PRN Other, PRN allergies, # 30 tablet, 11 Refills, Maintenance, 02/18/20 9:43:00 EDT, Tablet, [facility]/pharmacy #0957, 154.9, cm, 12/30/19 11:15:00 EDT, Height, 55.3, kg, 04/19/19 8:36:00 EST, Dry Weight Start Date: 02/18/20 Status: Ordered chantix 1mg tablet 1 tablet = 1 mg, By Mouth, 2 times a day, after meals, to begin after completing starter pack, # 1 pack/packet, 3 Refills, Maintenance, 02/18/20 9:41:00 EDT, Tablet, [facility]/pharmacy #0957, 154.9, cm, 12/30/19 11:15:00 EDT, Height, 55.3, kg, 04/19/19 8:36... Start Date: 02/18/20 Status: Ordered clonazePAM 1 mg oral tablet 1 tablet = 1 mg, By Mouth, 3 times a day, Please fax to [facility] [address] [phone], # 90 tablet, 2 Refills, Maintenance, 09/17/18 12:46:43 EDT, Tablet Start Date: 09/17/18 Status: Ordered CPAP Equipment See Instructions, # 1 units, Refills 12, Tot. Refills 12, Maintenance, BiPAP supplies: Mask, tubing, filters, headgear, chin strap, heated water chamber Dx: ELSA G47.33 Length of need 99 months Pleasefax to [facility], [phone], 09/04/18 15:13:48 EDT, Co... Start Date: 09/04/18 Status: Ordered CPAP Equipment See Instructions, # 1 units, Refills 12, Tot. 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 Start Date: 06/30/17 Status: Ordered [facility] DIPHENHYDRAMINE 25 MG TAB [facility] DIPHENHYDRAMINE 25 MG TAB, 1, tablet, [...] 6 Refills, Maintenance, 04/29/20 17:54:00 EST, Tablet, [facility]/pharmacy #0957, 154.9, cm, 12/30/19 11:15:00 EDT, Height, 55.3, kg, 04/19/19 8:36:00 EST, Dry Weight Start Date: 04/29/20 Status: Ordered Eucerin Unscented topical lotion See Instructions, apply to skin daily, dispense 1 jar, # 1 each, 11 Refills, Maintenance, 09/25/19 16:37:00 EDT, [facility]/pharmacy #0957, apply to skin daily, dispense [...] Gm, 11 Refills, Maintenance, 02/18/20 9:43:00 EDT, [facility]/pharmacy #0957,1 sprays Nasal Daily, 154.9, cm, 12/30/19 11:15:00 EDT, Height, 55.3, kg, 04/19/19 8:36:00 EST, DryWeight Start Date: 02/18/20 Status: Ordered Flovent HFA 220 mcg/inh inhalation aerosol See Instructions, TAKE 2 PUFFS BY MOUTH TWICE A DAY RINSE MOUTH AND THROAT AFTER EACH USE, # 12 Unknown, 11 Refills, Soft Stop, 02/18/20 9:42:00 EDT, [facility]/pharmacy #0957, 154.9, cm, 12/30/19 11:15:00 EDT, Height, 55.3, kg, 04/19/19 8:36:00 EST, Dry Weight Start Date: 02/18/20 Status: Ordered lisinopril 10 mg oral tablet 10 mg, 1, tablet, By Mouth, Daily, # 30 tablet, Refills 11, Tot. Refills 11, Maintenance, 02/18/20 9:43:00 EDT, Route to Pharmacy Electronically, [facility]/pharmacy #0957, 154.9, cm, 12/30/19 11:15:00 EDT,Height, [...] Refills, Maintenance, 02/18/20 9:43:00 EDT, EC Capsule, [facility]/pharmacy #0957, 154.9, cm, 12/30/19 11:15:00 EDT, Height, 55.3, kg, 04/19/19 8:36:00 EST, Dry Weight Start Date: 02/18/20 Status: Ordered ProAir HFA 90 mcg/inh inhalation aerosol with adapter 2, puffs, Inhalation, 4 times a day, PRN, # 1 each, Refills 11, Tot. Refills 11, Maintenance, 04/20/20 13:51:00 EST, Route to Pharmacy Electronically, [id number], [facility]/pharmacy #0957, 154.9, cm, 12/30/19 11:15:00 EDT, Height,... Start Date: 04/20/20 Stop Date: 04/15/21 Status: Ordered Stiolto Respimat 60 ACT 2.5 mcg-2.5 mcg/inh inhalation aerosol 2 puffs, Inhalation, Every 24 hours, to replace tiotropium, # 4 Gm, 11 Refills, Maintenance, 02/18/20 9:43:00 EDT, Aerosol, [facility]/pharmacy #0957, 154.9, cm, 12/30/19 11:15:00 EDT, [...] Active Clubbing(Confirmed) Active Drug abuse: Suboxone via [facility](Confirmed) Active Esophageal reflux [...]
--- OUTSIDE RECORDS SUMMARY | 2022-12-26 10:37 | XMS_ITS | Continuity of Care Document ---
Author Name Unknown Organization [facility] Address [address] [place] [address], [address] [place] [address]- Care Team Providers Care Roll Contour Grinder Name Role Phone Divina MARINELLI, Adalberto Reeder Primary Care Physician [facility]counter [facility] Date(s): 05/19/20 - 06/18/20 [facility] [address] [place] [address], [address] [place], [place] [address] Allergies, Adverse Reactions, Alerts Substance Reaction Severity [...] tablet = 0.5 mg, By Mouth, Once, night shift supervisor to procedure. May repeat X 1, # [...] 3 Refills, Maintenance, 02/18/20 9:41:00 EDT, Tablet, [facility]/pharmacy #0957, 154.9, cm, 12/30/19 11:15:00 EDT, Height, 55.3, kg, 04/19/19 8:36... Start Date: 02/18/20 Status: Ordered clonazePAM 1 mg oral tablet 1 tablet = 1 mg, By Mouth, 3 times a day, Please fax to [facility] [address] [phone], # 90 tablet, 2 Refills, Maintenance, 09/17/18 12:46:43 EDT, Tablet Start Date: 09/17/18 Status: Ordered CPAP Equipment See Instructions, # 1 units, Refills 12, Tot. Refills 12, Maintenance, BiPAP supplies: Mask, tubing, filters, headgear, chin strap, heated water chamber Dx: ELSA G47.33 Length of need 99 months Pleasefax to [facility], [phone], 09/04/18 15:13:48 EDT, Co... Start Date: 09/04/18 Status: Ordered CPAP Equipment See Instructions, # 1 units, Refills 12, Tot. 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 Start Date: 06/30/17 Status: Ordered Eucerin Unscented topical lotion See Instructions, apply to skin daily, dispense 1 jar, # 1 each, 11 Refills, Maintenance, 09/25/19 16:37:00 EDT, [facility]/pharmacy #0957, apply to skin daily, [...] Gm, 11 Refills, Maintenance, 02/18/20 9:43:00 EDT, [facility]/pharmacy #0957,1 sprays Nasal Daily, 154.9, cm, 12/30/19 11:15:00 EDT, Height, 55.3, kg, 04/19/19 8:36:00 EST, DryWeight Start Date: 02/18/20 Status: Ordered Flovent HFA 220 mcg/inh inhalation aerosol See Instructions, TAKE 2 PUFFS BY MOUTH TWICE A DAY RINSE MOUTH AND THROAT AFTER EACH USE, # 12 Unknown, 11 Refills, Soft Stop, 02/18/20 9:42:00 EDT, [facility]/pharmacy #0957, 154.9, cm, 12/30/19 11:15:00 EDT, Height, 55.3, kg, 04/19/19 8:36:00 EST, Dry Weight Start Date: 02/18/20 Status: Ordered lisinopril 10 mg oral tablet 10 mg, 1, tablet, By Mouth, Daily, # 30 tablet, Refills 11, Tot. Refills 11, Maintenance, 02/18/20 9:43:00 EDT, Route to Pharmacy Electronically, [facility]/pharmacy #0957, 154.9, cm, 12/30/19 11:15:00 EDT,Height, [...] 07/06/20 23:00:00 EST, 06/06/20 19:18:00 EST, Tablet, [facility]/pharmacy #0957, Partial fill upon patient request if the prescription is for a schedule II opioid d... Start Date: 06/06/20 Stop Date: 07/06/20 Status: Ordered ProAir HFA 90 mcg/inh inhalation aerosol with adapter 2, puffs, Inhalation, 4 times a day, PRN, # 1 each, Refills 11, Tot. Refills 11, Maintenance, 04/20/20 13:51:00 EST, Route to Pharmacy Electronically, [id number], [facility]/pharmacy #0957, 154.9, cm, 12/30/19 11:15:00 EDT, Height,... Start Date: 04/20/20 Stop Date: 04/15/21 Status: Ordered Stiolto Respimat 60 ACT 2.5 mcg-2.5 mcg/inh inhalation aerosol 2 puffs, Inhalation, Every 24 hours, to replace tiotropium, # 4 Gm, 11 Refills, Maintenance, 02/18/20 9:43:00 EDT, Aerosol, [facility]/pharmacy #0957, 154.9, cm, 12/30/19 11:15:00 EDT, [...] 3 Refills, Maintenance, 03/16/20 16:51:00 EST, Tablet, [facility]/pharmacy #0957, 154.9, cm, 12/30/19 11:15:00 EDT, [...]
--- OUTSIDE RECORDS SUMMARY | 2022-12-26 10:37 | XMS_ITS | Continuity of Care Document ---
Author Name Unknown Organization [facility] ter Address [address] [place] [address]- Care Team Providers Care Curtain Cutter Name Role Phone Adalberto Murcia MD Primary Care Physician [place] [facility] Date[place] 04/21/20 - 05/29/[address] [address] Attending Physician: Sukumar Maldonado DO Admitting Physician: Sukumar Maldonado DO Referring Physician: Sukumar Maldonado DO Allergies, Adverse Reactions, Alerts Substance Reaction Severity [...] 1 Refills, Maintenance, 07/31/19 11:08:00 EDT, Tablet, [facility]/pharmacy #0957, 154.9, cm, 07/04/19 9:38:00 EST, Height, [...] tablet = 0.5 mg, By Mouth, Once, adult basic education teacher to procedure. May repeat X 1, # [...] 11 Refills, Maintenance, 02/18/20 9:43:00 EDT, Tablet, [facility]/pharmacy #0957, 1 tablet By Mouth 2 times [...] 02/18/20 9:42:00 EDT, Route to Pharmacy Electronically, [facility]/pharmacy #0957, 154.9, cm, 12/30/19 11:15:00 EDT, Height, 55.3, kg, 04/19/19 8:36:00 EST, Dry Weight Start Date: 02/18/20 Status: Ordered cetirizine 10 mg oral tablet 1 tablet = 10 mg, By Mouth, Daily, PRN Other, PRN allergies, # 30 tablet, 11 Refills, Maintenance, 02/18/20 9:43:00 EDT, Tablet, [facility] [address] [phone], # 90 tablet, 2 Refills, Maintenance, 09/17/18 12:46:43 EDT, Tablet Start Date: 09/17/18 Status: Ordered CPAP Equipment See Instructions, # 1 units, Refills 12, Tot. Refills 12, Maintenance, BiPAP supplies: Mask, tubing, filters, headgear, chin strap, heated water chamber Dx: ELSA G47.33 Length of need 99 months Pleasefax to [facility], [phone], 09/04/18 15:13:48 EDT, Co... Start Date: 09/04/18 Status: Ordered CPAP Equipment See Instructions, # 1 units, Refills 12, Tot. 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 Start Date: 06/30/17 Status: Ordered [facility] DIPHENHYDRAMINE 25 MG TAB [facility] DIPHENHYDRAMINE 25 MG TAB, 1, tablet, By [...] 6 Refills, Maintenance, 04/29/20 17:54:00 EST, Tablet, [facility]/pharmacy [...] Refills, Maintenance, 02/18/20 9:43:00 EDT, EC Capsule, [facility]/pharmacy #0957, 154.9, cm, 12/30/19 11:15:00 EDT, Height, 55.3, kg, 04/19/19 8:36:00 EST, Dry Weight Start Date: 02/18/20 Status: Ordered ProAir HFA 90 mcg/inh inhalation aerosol with adapter 2, puffs, Inhalation, 4 times a day, PRN, # 1 each, Refills 11, Tot. Refills 11, Maintenance, 04/20/20 13:51:00 EST, Route to Pharmacy Electronically, [id number], [facility]/pharmacy #0957, 154.9, [...] Active Clubbing(Confirmed) Active Drug abuse: Suboxone via [facility](Confirmed) Active Esophageal reflux (GERD)(Confirmed) [...]
--- OUTSIDE RECORDS SUMMARY | 2022-12-26 10:37 | XMS_ITS | Continuity of Care Document ---
Author Name Unknown Organization [facility] Address [address] [place] [address]- Care Team Providers Care Agronomy Technician Name Role Phone Gideon Nice WATER TRAINER, Jennyfer Primary Care Physician [place] [facility] - 03/11/[address] [address]- Attending Physician: Not on Staff, Attending MD Allergies, Adverse Reactions, Alerts Substance Reaction Severity Status Zoloft O/E - Parkinsonian tremor Ac tive Rubber Active Other Environmental Allergy 1 Active 1ELASTIC Immunizations Given and Recorded Vaccine Date Status Refusal Reason SARS-CoV-2 mRNA ([id number]) vax 12/14/21 Given SARS-CoV-2 mRNA ([id number]-bdqf-ebgdh) vax 09/14/21 Given SARS-CoV-2 (COVID-19) mRNA BNT-162b2 [...] tablet, 3 Refills, Maintenance, 09/14/21 10:11:00 EDT,Tablet, [facility]/pharmacy #0980, Partial fill upon patient request if the [...] # 180 tablet, 1 Refills, [facility], 90, TAKE 1 TABLET BY MOUTH TWICE [...] PhysicianStop 04/15/22 8:28:00 EST, 12/14/21 8:27:00 EDT, [facility]/pharmacy #0957, 154.8, cm, 09/14/21 9:50:00 EDT, Height, 56, kg, 12/09/20 9:16:00 EDT, Dry Weight Start Date: 12/14/21 Stop Date: 04/15/22 Status: Ordered clonazePAM 0.25 mg oral tablet, disintegrating See Instructions, 1 tablet By Mouth 2 times a day as needed. Mass Pat Reviewed. Please fill on/after 01/24/22, # 40 tablet, 2 Refills, Maintenance, 01/24/22 16:19:00 EDT, [facility]/pharmacy #0957, Partial fill upon patient request if the prescription is for... Start Date: 01/24/22 Status: Ordered CPAP Equipment See Instructions, # 1 units, Refills 12, Tot. 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 Start Date: 06/30/17 Status: Ordered CPAP Equipment See Instructions, # 1 each, Refills 12, Tot. Refills 12, Maintenance, BiPAP supplies: Mask, tubing,filters, headgear, chin strap, heated water chamber Dx: ELSA G47.33 Length of need 99 months Please fax to [facility] fax # [phone], 07/02/20 14:50:0... Start Date: 07/02/20 Status: Ordered cyanocobalamin 500 mcg oral tablet 1 tablet = 500 mcg, By Mouth, Daily, on empty stomach, # 90 tablet, 3 Refills, Maintenance, 03/26/21 20:06:00 EST, Tablet, [facility]/pharmacy #0957, [...] EACH USE., # 12 each, 11 Refills, [facility], 154.8, cm, 09/14/21 9:50:00 EDT, Height, 56, kg, 12/09/20 9:16:00 EDT, Dry Weight Start Date: 11/17/21 Status: Ordered fluticasone 50 mcg/inh nasal spray See Instructions, USE 1 SPRAY IN EACH NOSTRIL DAILY, # 48 mL, 11 Refills, [facility], 90, USE 1 SPRAY IN EACH NOSTRIL DAILY, 154.8, cm, 09/14/21 9:50:00 EDT, Height, 56, kg, 12/09/20 9:16:00 EDT, Dry Weight Start Date: 11/15/21 Status: Ordered Inderal LA 80 mg oral capsule, extended release 80 mg, 1, capsule, By Mouth, Daily, # 30 capsule, Refills 3, Tot. Refills 3, Maintenance, 06/23/20 10:00:00 EST, Route to Pharmacy Electronically, [facility]/pharmacy #0957, To replace Topamax. Partial fillupon patient request if the prescription is for a... Start Date: 06/23/20 Status: Ordered lisinopril 10 mg oral tablet 1, tablet, By Mouth, Daily, # 90 tablet, Refills 3, Route to Pharmacy Electronically, [facility], 154.8, cm, 09/14/21 9:50:00 EDT, Height, 56, kg, 12/09/20 9:16:00 EDT, Dry Weight Start Date: 12/07/21 Status: Ordered melatonin 3 mg oral tablet 1 tablet = 3 mg, By Mouth, Daily at bedtime, PRN Insomnia, # 60 tablet, 11 Refills, Maintenance, 01/24/22 16:19:00 EDT, [facility]/pharmacy #0957, Partial fill upon patient request if the prescription is for a schedule II opioid drug., 154.8, cm, 09/14/21 9:... Start Date: 01/24/22 Status: Ordered nicotine 2 mg oral transmucosal lozenge 1 lozenge = 2 mg, By Mouth, Every 2 hours, # 72 each, 11 Refills, Maintenance, 10/13/20 8:35:00 EDT, [facility]/pharmacy #0957, Partial fill [...] each, Refills 3, Tot. Refills 3, Maintenance, [place] Ensure 1 can TID. Dx: C34.90, R63.4, 03/29/21 15:29:00 EST, Supply Start Date: 03/29/21 Status: Ordered omeprazole 20 mg oral enteric coated capsule 1 capsule = 20 mg, By Mouth, Daily, # 90 capsule, 3 Refills, Maintenance, 07/08/21 15:23:00 EST, ECCapsule, [facility]/pharmacy #0957, Partial fill upon patient request if the prescription is for a schedule II opioid drug., 154.8, cm, 06/29/21 9:00:00 EST,... Start Date: 07/08/21 Status: Ordered Stiolto Respimat 60 ACT 2.5 mcg-2.5 mcg/inh inhalation aerosol 2 puffs, Inhalation, Every 24 hours, TO REPLACE TIOTROPIUM., # 4 mL, 11 Refills, [facility], 154.8, cm, 09/14/21 9:50:00 EDT, Height, 56, kg, 12/09/20 9:16:00 EDT, Dry Weight Start Date: 11/17/21 Status: Ordered Ventolin HFA 108 mcg/inh inhalation aerosol with adapter 2 puffs, Inhalation, 4 times a day, PRN NEEDED FOR WHEEZING, # 18 each, 5 Refills, [facility], 154.8, cm, 09/14/21 9:50:00 EDT, Height, 56, [...] Clubbing Confirmed Active Drug abuse: Suboxone via [facility] Confirmed Active Esophageal reflux (GERD) Confirmed 05/09/12 Active JASON (generalized anxiety disorder) Confirmed Active HPV: Positive in 07/15; 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, negative in 10/16 Confirmed Active Hypertension Confirmed 08/23/10 Active Lung cancer Confirmed Active Lung nodules Confirmed Active Opioid use disorder Confirmed Active Osteoporosis Confirmed Active Pain in finger of right hand Confirmed Active *[id number] paige Escamilla Confirmed Active Pelvic mass Confirmed [...] Personnel Name: Jennyfer Stokes NP Address: Address: [address] [place] [address]
--- OUTSIDE RECORDS SUMMARY | 2022-12-26 10:37 | XMS_ITS | Continuity of Care Document ---
Author Name Unknown Organization [facility] Address [address] [place] [address]- Care Team Providers Care Physical Therapist Center Manager Name Role Phone Divina MARINELLI, Adalberto Reeder Primary Care Physician [place] [facility] [place] [facility] [address] [place] [address]- [facility] Attending Physician: Angelina Mendoza Admitting Physician: Angelina [...] 03/19/19 10:53:39 EST, Route to Pharmacy Electronically, [id number], [facility]/pharmacy #1026 Start Date: 03/19/19 Status: Ordered cetirizine 10 mg oral tablet 1 tablet = 10 mg, By Mouth, Daily, PRN Other, PRN allergies, # 30 tablet, 11 Refills, Maintenance, 05/28/19 12:01:00 EST, Tablet, [facility]/pharmacy #0957, 154.9, cm, 05/28/19 11:40:00 EST, Height, [...] a day, Please fax to [facility] on [address] [phone], # 90 tablet, 2 Refills, Maintenance, 09/17/18 12:46:43 EDT, Tablet Start Date: 09/17/18 Status: Ordered CPAP Equipment See Instructions, # 1 units, Refills 12, Tot. Refills 12, Maintenance, BiPAP supplies: Mask, tubing, filters, headgear, chin strap, heated water chamber Dx: ELSA G47.33 Length of need 99 months Pleasefax to [facility], [phone], 09/04/18 15:13:48 EDT, Co... Start Date: 09/04/18 Status: Ordered CPAP Equipment See Instructions, # 1 units, Refills 12, Tot. 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 Start Date: 06/30/17 Status: Ordered diphenhydrAMINE 25 [...] Gm, 11 Refills, Maintenance, 05/28/19 12:01:00 EST, [facility]/pharmacy #0957, 1 sprays Nasal Daily, 154.9, cm, 05/28/19 11:40:00 EST, Height, 55.3, kg, 04/19/19 8:36:00 EST, Dry Weight Start Date: 05/28/19 Status: Ordered Flovent HFA 220 mcg/inh inhalation aerosol See Instructions, # 12 Unknown, Refills 11 Tot. Refills 11, TAKE 2 PUFFS BY MOUTH TWICE A DAY [place] AND THROAT AFTER EACH USE, [facility]/pharmacy #1026 Start Date: 03/15/19 Status: Ordered lisinopril 10 mg oral tablet 10 mg, 1, tablet, By Mouth, Daily, # 30 tablet, Refills 11, Tot. Refills 11, Maintenance, 05/28/19 12:01:00 EST, Route to Pharmacy Electronically, [facility]/pharmacy #0957, 154.9, cm, 05/28/19 11:40:00 EST, Height, 55.3, kg, 04/19/19 8:36:00 EST, Dry Weight Start Date: 05/28/19 Status: Ordered nicotine 4 mg oral transmucosal lozenge 1 lozenge = 4 mg, By Mouth, Every 8 hours, for 3 week(s), # 63 lozenge, 1 Refills, Acute 10/03/19 10:28:00 EDT, 08/22/19 10:28:00 EDT, [facility]/pharmacy #0957, 1 lozenge By Mouth Every 8 [...] 05/28/19 12:01:00 EST, Route to Pharmacy Electronically, [id number], [facility]/pharmacy #0957, 154.9, cm, 05/28/19 11:40:00 EST, Height,... [...] tablet, 11 Refills, Maintenance, 05/28/19 12:01:00 EST, [facility]/pharmacy #0957, 154.9, cm, 05/28/19 11:40:00 EST, Height, 55.3, kg, 04/19/19 8:36:00 EST,Dry Weight Start Date: 05/28/19 Status: Ordered Problem List Condition Effective Dates Status Health Status Inform ant Age at leaving school - ged(Confirmed) Active ASCUS(Confirmed) Active 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 Sleep Report(Confirmed) 05/25/11 Active Hep C: Cleared without treatment(Confirmed) Active Clubbing(Confirmed) Active Drug abuse: Suboxone via [facility](Confirmed) Active Esophageal reflux (GERD)(Confirmed) 05/09/12 Active JASON (generalized anxiety disorder)(Confirmed) Active HPV: Positive in 07/15; neg i n 01/15, negative in 10/16(Confirmed) Active Hypertension(Confirmed) 08/23/10 Active Zachary Duran, N/CP [id number] active care coordination(Confirmed) Active Emphysema of lung: [...]
--- OUTSIDE RECORDS SUMMARY | 2022-12-26 10:37 | XMS_ITS | Continuity of Care Document ---
Author Name Unknown Organization [facility] Address [address] [place] [address]- Care Team Providers Care Glove Finisher Name Role Phone Divina MARINELLI, Adalberto Reeder Primary Care Physician Encounter [facility] Date(s): 05/05/21 - 06/04/21 [facility] [address] [place] [address]- Allergies, Adverse Reactions, Alerts Substance Reaction Severity [...] 17:04:00 EDT, Aerosol, Route to Pharmacy Electronically, [id number]... Start Date: 08/03/20 Status: Ordered BiPAP Machine [...] 11 Refills, Maintenance, 11/05/20 17:11:00 EDT, Tablet, [facility]/pharmacy #0957, 1 tablet [...] 56 tablet, 3 Refills, Acute, [facility], 154.9, cm, 06/11/20 9:48:00 EST, Height, 58, kg, 06/05/20 12:02:00 EST, Dry Weight Start Date: 08/03/20 Status: Ordered clonazePAM 1 mg oral tablet 1 tablet = 1 mg, By Mouth, 2 times a day, PRN Anxiety, Please dispense on/after 06/09/21, # 60 tablet, 0 Refills, Maintenance, 05/31/21 14:34:00 EST, Tablet, [facility]/pharmacy #0957, 154.8, cm, 04/20/21 13:17:00 EST, Height, 56, kg, 12/09/20 9:16:00 EDT, Dry... Start Date: 05/31/21 Status: Ordered CPAP Equipment See Instructions, # 1 units, Refills 12, Tot. 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 Start Date: 06/30/17 Status: Ordered CPAP Equipment See Instructions, # 1 each, Refills 12, Tot. Refills 12, Maintenance, BiPAP supplies: Mask, tubing,filters, headgear, chin strap, heated water chamber Dx: ELSA G47.33 Length of need 99 months Please fax to [facility] fax # [phone], 07/02/20 14:50:0... Start Date: 07/02/20 Status: Ordered [...] to Pharmacy Electronically, [facility]/pharmacy #0957, To replace Topamax. Partial fillupon patient request if the prescription is for a... Start Date: 06/23/20 Status: Ordered lisinopril 10 mg oral tablet 10 mg, 1, tablet, By Mouth, Daily, # 90 tablet, Refills 3, Tot. Refills 3, Maintenance, 09/28/20 13:15:00 EDT, Route to Pharmacy Electronically, [facility]/pharmacy #0957, 154.9, cm, 09/22/20 10:26:00 EDT, Height, 58, kg, 06/05/20 12:02:00 EST, Dry Weight Start Date: 09/28/20 Stop Date: 09/23/21 Status: Ordered melatonin 3 mg oral tablet 1 tablet = 3 mg, By Mouth, Daily at bedtime, PRN Insomnia, # 60 tablet, 11 Refills, Maintenance, 03/29/21 21:06:00 EST, [facility]/pharmacy #0957, Partial fill upon patient [...] each, Refills 3, Tot. Refills 3, Maintenance, [place] Ensure 1 can TID. Dx: C34.90, R63.4, [...] Active Clubbing(Confirmed) Active Drug abuse: Suboxone via [facility](Confirmed) Active Esophageal reflux (GERD)(Confirmed) [...]
--- OUTSIDE RECORDS SUMMARY | 2022-12-26 10:37 | XMS_ITS | Continuity of Care Document ---
Author Name Unknown Organization [facility] Address [address] [address]- Care Team Providers Care Gas Specialist Name Role Phone Divina MARINELLI, Adalberto Reeder Primary Care Physician Encounter [facility] Date(s): 06/02/21 - 07/02/21 [facility] [address] [place] [id number] Allergies, Adverse Reactions, Alerts Substance Reaction [...] 17:04:00 EDT, Aerosol, Route to Pharmacy Electronically, [id number]... Start Date: 08/03/20 Status: Ordered BiPAP Machine [...] 11 Refills, Maintenance, 11/05/20 17:11:00 EDT, Tablet, [facility]/pharmacy #0957, 1 tablet By Mouth [...] 56 tablet, 3 Refills, Acute, [facility], 154.9, cm, 06/11/20 9:48:00 EST, Height, 58, [...] months Please fax to [facility], [phone],... Start Date: 06/30/17 Status: Ordered CPAP Equipment See Instructions, # 1 each, Refills 12, Tot. Refills 12, Maintenance, BiPAP supplies: Mask, tubing,filters, headgear, chin strap, heated water chamber Dx: ELSA G47.33 Length of need 99 months Please fax to [facility] fax # [phone], 07/02/20 14:50:0... Start Date: 07/02/20 Status: Ordered cyanocobalamin 500 mcg oral tablet 1 tablet = 500 mcg, By Mouth, Daily, on empty stomach, # 90 tablet, 3 Refills, Maintenance, 03/26/21 20:06:00 EST, Tablet, [facility]/pharmacy #0957, Partial fill upon patient [...] Gm, 11 Refills, Maintenance, 11/05/20 17:11:00 EDT, [facility]/pharmacy #0957, 1 sprays Nasal Daily, 154.9, cm, 10/13/20 7:56:00 EDT, Height, 58, kg, 06/05/20 12:02:00 EST, Dry Weight Start Date: 11/05/20 Status: Ordered Flovent HFA 220 mcg/inh inhalation aerosol See Instructions, TAKE 2 PUFFS BY MOUTH TWICE A DAY RINSE MOUTH AND THROAT AFTER EACH USE, # 12 Unknown, 11 Refills, Soft Stop, 11/05/20 17:11:00 EDT, [facility]/pharmacy #0957, 154.9, cm, 10/13/20 7:56:00 EDT, Height, 58, kg, 06/05/20 12:02:00 EST, Dry Weight Start Date: 11/05/20 Status: Ordered Inderal LA 80 mg oral capsule, extended release 80 mg, 1, capsule, By Mouth, Daily, # 30 capsule, Refills 3, Tot. Refills 3, Maintenance, 06/23/20 10:00:00 EST, Route to Pharmacy Electronically, [facility]/pharmacy #0957, To replace Topamax. Partial fillupon patient request if the prescription is for a... Start Date: 06/23/20 Status: Ordered lisinopril 10 mg oral tablet 10 mg, 1, tablet, By Mouth, Daily, # 90 tablet, Refills 3, Tot. Refills 3, Maintenance, 09/28/20 13:15:00 EDT, Route to Pharmacy Electronically, [facility]/pharmacy #0957, 154.9, cm, 09/22/20 10:26:00 EDT, Height, 58, kg, 06/05/20 12:02:00 EST, Dry Weight Start Date: 09/28/20 Stop Date: 09/23/21 Status: Ordered melatonin 3 mg oral tablet 1 tablet = 3 mg, By Mouth, Daily at bedtime, PRN Insomnia, # 60 tablet, 11 Refills, Maintenance, 03/29/21 21:06:00 EST, [facility]/pharmacy #0957, Partial fill upon patient request if the prescription is for a schedule II opioid drug., 154.8, cm, 03/23/21 11... Start Date: 03/29/21 Status: Ordered nicotine 2 mg oral transmucosal lozenge 1 lozenge = 2 mg, By Mouth, Every 2 hours, # 72 each, 11 Refills, Maintenance, 10/13/20 8:35:00 EDT, [facility]/pharmacy #0957, Partial fill upon patient [...] each, Refills 3, Tot. Refills 3, Maintenance, [place] Ensure 1 can TID. Dx: C34.90, R63.4, [...] Active Clubbing(Confirmed) Active Drug abuse: Suboxone via [facility](Confirmed) Active Esophageal reflux (GERD)(Confirmed) [...]
--- OUTSIDE RECORDS SUMMARY | 2022-12-26 10:37 | XMS_ITS | Continuity of Care Document ---
Author Name Unknown Organization [facility] Address [address] [place] [address]- Care Team Providers Care Server Support Technician Name Role Phone Divina MARINELLI, Adalberto Reeder Primary Care Physician [place] [facility] [place] 05/13/20 - 06/20/[address] [address]- Attending Physician: Kiley Wiseman MD Referring Physician: Kiley [...] 0.5 mg, By Mouth, Once, call center analyst to procedure. May repeat X 1, # [...] 3 Refills, Maintenance, 02/18/20 9:41:00 EDT, Tablet, [facility]/pharmacy #0957, 154.9, cm, 12/30/19 11:15:00 EDT, Height, 55.3, kg, 04/19/19 8:36... Start Date: 02/18/20 Status: Ordered clonazePAM 1 mg oral tablet 1 tablet = 1 mg, By Mouth, 3 times a day, Please fax to [facility] on [address] [phone], # 90 tablet, 2 Refills, Maintenance, 09/17/18 12:46:43 EDT, Tablet Start Date: 09/17/18 Status: Ordered CPAP Equipment See Instructions, # 1 units, Refills 12, Tot. Refills 12, Maintenance, BiPAP supplies: Mask, tubing, filters, headgear, chin strap, heated water chamber Dx: ELSA G47.33 Length of need 99 months Pleasefax to [facility], [phone], 09/04/18 15:13:48 EDT, Co... Start Date: 09/04/18 Status: Ordered CPAP Equipment See Instructions, # 1 units, Refills 12, Tot. Refills 12, Maintenance, BIPAP supplies: Mask, tubing, filters, headgear, chin strap, water chamber 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) Lengthof need 99 months Please fax to [facility], [phone],... Start Date: 06/30/17 Status: Ordered Eucerin Unscented [...] Gm, 11 Refills, Maintenance, 02/18/20 9:43:00 EDT, [facility]/pharmacy #0957,1 sprays Nasal Daily, 154.9, cm, 12/30/19 11:15:00 EDT, Height, 55.3, kg, 04/19/19 8:36:00 EST, DryWeight Start Date: 02/18/20 Status: Ordered Flovent HFA 220 mcg/inh inhalation aerosol See Instructions, TAKE 2 PUFFS BY MOUTH TWICE A DAY RINSE MOUTH AND THROAT AFTER EACH USE, # 12 Unknown, 11 Refills, Soft Stop, 02/18/20 9:42:00 EDT, [facility]/pharmacy #0957, 154.9, cm, 12/30/19 [...] 07/06/20 23:00:00 EST, 06/06/20 19:18:00 EST, Tablet, [facility]/pharmacy #0957, Partial fill upon patient request if the prescription is for a schedule II opioid d... Start Date: 06/06/20 Stop Date: 07/06/20 Status: Ordered ProAir HFA 90 mcg/inh inhalation aerosol with adapter 2, puffs, Inhalation, 4 times a day, PRN, # 1 each, Refills 11, Tot. Refills 11, Maintenance, 04/20/20 13:51:00 EST, Route to Pharmacy Electronically, [id number], [facility]/pharmacy #0957, 154.9, cm, 12/30/19 11:15:00 EDT, Height,... Start Date: 04/20/20 Stop Date: 04/15/21 Status: Ordered Stiolto Respimat 60 ACT 2.5 mcg-2.5 mcg/inh inhalation aerosol 2 puffs, Inhalation, Every 24 hours, to replace tiotropium, # 4 Gm, 11 Refills, Maintenance, 02/18/20 9:43:00 EDT, Aerosol, [facility]/pharmacy #0957, 154.9, cm, 12/30/19 [...] 3 Refills, Maintenance, 03/16/20 16:51:00 EST, Tablet, [facility]/pharmacy #0957, 154.9, cm, 12/30/19 [...] Active Clubbing(Confirmed) Active Drug abuse: Suboxone via [facility](Confirmed) Active Esophageal reflux (GERD)(Confirmed) [...]
--- OUTSIDE RECORDS SUMMARY | 2022-12-26 10:37 | XMS_ITS | Continuity of Care Document ---
Author Name Unknown Organization [facility] Address [address] [place] [address]- Care Team Providers Care Continuous Linter Drier Operator Name Role Phone Adalberto Murcia MD Primary Care Physician Encounter [facility] Date(s): 03/19/19 - 05/23/[address] [address]- [facility] Attending Physician: Adalberto Murcia MD Admitting Physician: Adalberto Murcia MD Allergies, Adverse Reactions, [...] inactive(oldterm) 8 06/02/09 Given 1Admin Note: vis 11/18/08 2Admin Note: vis 12/2011 3Admin Note: vis [...] 03/19/19 10:53:39 EST, Route to Pharmacy Electronically, [id number], [facility]/pharmacy #1026 Start Date: 03/19/19 Status: Ordered [...] times a day, Please fax to [facility] [phone], # 90 tablet, 2 Refills, Maintenance, 09/17/18 12:46:43 EDT, Tablet Start Date: 09/17/18 Status: Ordered CPAP Equipment See Instructions, # 1 units, Refills 12, Tot. Refills 12, Maintenance, BiPAP supplies: Mask, tubing, filters, headgear, chin strap, heated water chamber Dx: ELSA G47.33 Length of need 99 months Pleasefax to [facility], [phone], 09/04/18 15:13:48 EDT, Co... Start Date: 09/04/18 Status: Ordered CPAP Equipment See Instructions, # 1 units, Refills 12, Tot. Refills 12, Maintenance, BIPAP supplies: Mask, tubing, filters, headgear, chin strap, water chamber Dx: Cheko león respiration, severe (786.04) Lengthof need 99 months Please fax to [facility], [phone],... Start Date: 06/30/17 Status: Ordered diphenhydrAMINE 25 [...] DAY [place] AND THROAT AFTER EACH USE, [facility]/pharmacy #1026 Start Date: 03/15/19 Status: Ordered gabapentin 300 mg oral capsule 600 mg, 2, capsule, By Mouth, Daily at bedtime, # 60 capsule, Refills 11, Tot. Refills 11, Maintenance, 08/28/18 10:07:25 EDT, Route to Pharmacy Electronically, [id number], [facility]/pharmacy #1026 Start Date: 08/28/18 Status: Ordered ibuprofen 600 mg oral tablet 600 mg, 1, tablet, By Mouth, 3 times a day, PRN, with food, # 270 tablet, Refills 11, Tot. Refills 11, Maintenance, as needed for pain, 06/27/17 17:45:19, Route to Pharmacy Electronically, [id number], [facility]/pharmacy #1026 Start Date: 06/27/17 Status: Ordered lisinopril 10 mg oral tablet 10 mg, 1, tablet, By Mouth, Daily, # 30 tablet, Refills 11, Tot. Refills 11, Maintenance, 07/05/18 14:09:24 EST, Route to Pharmacy Electronically, [id number], [facility]/pharmacy #1026 Start Date: 07/05/18 Status: Ordered [...] 07/23/18 12:48:24 EDT, Route to Pharmacy Electronically, [id number], [facility]/pharmacy #1026 Start Date: 07/23/18 Stop Date: [...]
--- OUTSIDE RECORDS SUMMARY | 2022-12-26 10:37 | XMS_ITS | Continuity of Care Document ---
Author Name Unknown Organization [facility] Address [address] [place] [address]- Care Team Providers Care Sheet Metal Fabricator Name Role Phone Gideon Nice COMMUNICATIONS FIELD TECHNICIAN, Jennyfer Primary Care Physician Encounter [facility] Date(s): 03/02/22 - 05/11/22 [facility] [address] [place] [address]- Attending Physician: Mavis Allen Allergies, Adverse Reactions, [...] vaccine, inactivated 04/23/08 Give n SARS-CoV-2 mRNA (crcbyfs-tadn-lmubr) vax 12/14/21 Given SARS-CoV-2 mRNA (kvlkbzx-ytkm-dvdrn) vax 09/14/21 Given SARS-CoV-2 (COVID-19) mRNA BNT-162b2 [...] 3 Refills, Maintenance, 09/14/21 10:11:00 EDT,Tablet, [facility]/pharmacy #0942, Partial fill upon patient request if the [...] 1 Refills, [facility] STORE 18563, 90, TAKE 1 TABLET BY MOUTH TWICE [...] tablet, 0 Refills, Maintenance, 03/28/22 4:50:00 EST, [facility]/pharmacy #0957, Partial [...] Please fax to [facility], [phone],... Start Date: 06/30/17 Status: Ordered CPAP Equipment See Instructions, # 1 each, Refills 12, Tot. Refills 12, Maintenance, BiPAP supplies: Mask, tubing,filters, headgear, chin strap, heated water chamber Dx: ELSA G47.33 Length of need 99 months Please fax to [facility] fax # [phone], 07/02/20 14:50:0... Start Date: 07/02/20 Status: Ordered [...] 11 Refills, Maintenance, 09/25/19 16:37:00 EDT, [facility]/pharmacy #0957, apply to [...] USE., # 12 each, 11 Refills, [facility] STORE 98818, 154.8, cm, 09/14/21 9:50:00 EDT, Height, 56, kg, 12/09/20 9:16:00 EDT, Dry Weight Start Date: 11/17/21 Status: Ordered fluticasone 50 mcg/inh nasal spray See Instructions, USE 1 SPRAY IN EACH NOSTRIL DAILY, # 48 mL, 11 Refills, [facility] STORE 75413, 90, USE 1 SPRAY IN EACH NOSTRIL [...] Refills 3, Route to Pharmacy Electronically, [facility] STORE 31617, 154.8, cm, 09/14/21 9:50:00 EDT, Height, 56, kg, 12/09/20 9:16:00 EDT, Dry Weight Start Date: 12/07/21 Status: Ordered melatonin 3 mg oral tablet 2 tablet = 6 mg, By Mouth, Daily at bedtime, PRN Insomnia, # 60 tablet, 2 Refills, Maintenance, 04/13/22 16:50:00 EST, [facility]/pharmacy #0957, Partial [...] each, Refills 3, Tot. Refills 3, Maintenance, [place] Ensure 1 can TID. Dx: C34.90, R63.4, [...] # 4 mL, 11 Refills, [facility], 154.8, cm, 09/14/21 9:50:00 EDT, Height, 56, kg, 12/09/20 9:16:00 EDT, Dry Weight Start Date: 11/17/21 Status: Ordered Ventolin HFA 108 mcg/inh inhalation aerosol with adapter 2 puffs, Inhalation, 4 times a day, PRN NEEDED FOR WHEEZING, # 18 each, 5 Refills, [facility], 154.8, cm, 09/14/21 9:50:00 EDT, Height, 56, [...] in finger of right hand Confirmed Active *[id number] paige Escamilla Confirmed Active Pelvic mass Confirmed [...] Care team information Care Team Personnel Name: Gideon Nice NP, Jennyfer Position: [facility] PCO Associate Professional Member Role: PCP Address: Address: [address] [place] [address]- Care Team Related Persons Name: JOSELIN SCHMIDT Address: home [address] [place] [address] Name: ALYSE HAUSER Address: home [address] [place] [id number] Name: NO, ONE AT THIS TIME
--- OUTSIDE RECORDS SUMMARY | 2022-12-26 10:37 | XMS_ITS | Continuity of Care Document ---
Author Name Unknown Organization [facility] Address [address] [place] [address]- Care Team Providers Care Behavioral Health Associate Name Role Phone Divina MARINELLI, Adalberto Reeder Primary Care Physician Encounter [facility] Date(s): 01/14/20 - 02/13/[address] [address]- [facility] Allergies, Adverse Reactions, Alerts Substance Reaction Severity [...] 1 Refills, Maintenance, 07/31/19 11:08:00 EDT, Tablet, [facility]/pharmacy #0957, 154.9, cm, 07/04/19 9:38:00 EST, Height, [...] 11 Refills, Maintenance, 05/28/19 12:01:00 EST, Tablet, [facility]/pharmacy #0957, 1 tablet By Mouth 2 times [...] 03/19/19 10:53:39 EST, Route to Pharmacy Electronically, [id number], [facility]/pharmacy #1026 Start Date: 03/19/19 Status: Ordered cetirizine 10 mg oral tablet 1 tablet = 10 mg, By Mouth, Daily, PRN Other, PRN allergies, # 30 tablet, 11 Refills, Maintenance, 05/28/19 12:01:00 EST, Tablet, [facility]/pharmacy #0957, 154.9, cm, 05/28/19 11:40:00 EST, Height, 55.3, kg, 04/19/19 8:36:00 EST, Dry Weight Start Date: 05/28/19 Status: Ordered chantix 1mg tablet 1 tablet = 1 mg, By Mouth, 2 times a day, after meals, to begin after completing starter pack, # 1 pack/packet, 0 Refills, Maintenance, 01/14/20 12:19:00 EDT, Tablet, [facility]/pharmacy #0957, 154.9, cm, 12/30/19 11:15:00 EDT, Height, 55.3, kg, 04/19/19 8:3... Start Date: 01/14/20 Status: Ordered clonazePAM 1 mg oral tablet TAKE 1 TABLET BY MOUTH 3 TIMES A DAY Start Date: 10/20/17 Status: Ordered clonazePAM 1 mg oral tablet 1 tablet = 1 mg, By Mouth, 3 times a day, Please fax to [facility] on [address] [phone], # 90 tablet, 2 Refills, Maintenance, 09/17/18 12:46:43 EDT, Tablet Start Date: 09/17/18 Status: Ordered CPAP Equipment See Instructions, # 1 units, Refills 12, Tot. Refills 12, Maintenance, BiPAP supplies: Mask, tubing, filters, headgear, chin strap, heated water chamber Dx: ELSA G47.33 Length of need 99 months Pleasefax to [facility], [phone], 09/04/18 15:13:48 EDT, Co... Start Date: 09/04/18 Status: Ordered CPAP Equipment See Instructions, # 1 units, Refills 12, Tot. Refills 12, Maintenance, BIPAP supplies: Mask, tubing, filters, headgear, chin strap, water chamber 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) Lengthof need 99 months Please fax to [facility], [phone],... Start Date: 06/30/17 Status: Ordered diphenhydrAMINE 25 mg oral tablet 1 tablet = 25 mg, By Mouth, 3 times a day, PRN for allergy symptoms, # 30 tablet, 6 Refills, Maintenance, 02/08/19 9:44:22 EDT, Tablet Start Date: 02/08/19 Status: Ordered Eucerin Unscented topical lotion See Instructions, apply to skin daily, dispense 1 jar, # 1 each, 11 Refills, Maintenance, 09/25/19 16:37:00 EDT, [facility]/pharmacy #0957, apply to skin daily, dispense 1 [...] Gm, 11 Refills, Maintenance, 05/28/19 12:01:00 EST, [facility]/pharmacy #0957, 1 sprays Nasal Daily, 154.9, cm, 05/28/19 11:40:00 EST, Height, 55.3, kg, 04/19/19 8:36:00 EST, Dry Weight Start Date: 05/28/19 Status: Ordered Flovent HFA 220 mcg/inh inhalation aerosol See Instructions, # 12 Unknown, Refills 11 Tot. Refills 11, TAKE 2 PUFFS BY MOUTH TWICE A DAY [place] AND THROAT AFTER EACH USE, [facility]/pharmacy #1026 Start Date: 03/15/19 Status: Ordered lisinopril 10 mg oral tablet 10 mg, 1, tablet, By Mouth, Daily, # 30 tablet, Refills 11, Tot. Refills 11, Maintenance, 05/28/19 12:01:00 EST, Route to Pharmacy Electronically, [facility]/pharmacy #0957, 154.9, cm, 05/28/19 11:40:00 EST, Height, [...] 05/28/19 12:01:00 EST, Route to Pharmacy Electronically, [id number], [facility]/pharmacy #0957, 154.9, cm, 05/28/19 11:40:00 EST, Height,... [...] 03/03/20 15:21:00 EDT, 12/02/19 15:20:00 EDT, Tablet, [facility]/pharmacy #0957, 154.9, cm, 08/22/19 15:10:00 EDT, Height, 55.3, kg, 04/19/19 8:36:00 EST, Dry Weight Start Date: 12/02/19 Stop Date: 03/03/20 Status: Ordered Topamax 50 mg oral tablet 1 tablet = 50 mg, By Mouth, 2 times a day, # 180 tablet, 1 Refills, Maintenance, 09/18/19 8:59:00 EDT, Tablet, [facility]/pharmacy #0957, 154.9, cm, 08/22/19 15:10:00 EDT, Height, [...]
--- OUTSIDE RECORDS SUMMARY | 2022-12-26 10:37 | XMS_ITS | Continuity of Care Document ---
Author Name Unknown Organization [facility] Address [address] [address]- Care Team Providers Care Forest Fire Fighters Dispatcher Name Role Phone Divina MARINELLI, Adalberto Reeder Primary Care Physician Encounter [facility] Date(s): 01/30/20 - 02/29/20 [facility] [address] [place] [address]- 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 - Parkinsonian tremor Ac tive Other Environmental Allergy 1 Active 1ELASTIC Immunizations Given and Recorded Vaccine Date Status Refusal Reason Zoster Vaccine Live 02/23/20 Recorded Influenza Virus [...] 02/18/20 9:42:00 EDT, Route to Pharmacy Electronically, [facility]/pharmacy #0957, 154.9, cm, 12/30/19 11:15:00 EDT, Height, 55.3, kg, 04/19/19 8:36:00 EST, Dry Weight Start Date: 02/18/20 Status: Ordered cetirizine 10 mg oral tablet 1 tablet = 10 mg, By Mouth, Daily, PRN Other, PRN allergies, # 30 tablet, 11 Refills, Maintenance, 02/18/20 9:43:00 EDT, Tablet, [facility]/pharmacy #0957, 154.9, cm, 12/30/19 11:15:00 EDT, Height, 55.3, kg, 04/19/19 8:36:00 EST, Dry Weight Start Date: 02/18/20 Status: Ordered chantix 1mg tablet 1 tablet = 1 mg, By Mouth, 2 times a day, after meals, to begin after completing starter pack, # 1 pack/packet, 3 Refills, Maintenance, 02/18/20 9:41:00 EDT, Tablet, [facility]/pharmacy #0957, 154.9, cm, 12/30/19 11:15:00 EDT, Height, 55.3, kg, 04/19/19 8:36... Start Date: 02/18/20 Status: Ordered clonazePAM 1 mg oral tablet TAKE 1 TABLET BY MOUTH 3 TIMES A DAY Start Date: 10/20/17 Status: Ordered clonazePAM 1 mg oral tablet 1 tablet = 1 mg, By Mouth, 3 times a day, Please fax to [facility] on [address] [phone], # 90 tablet, 2 Refills, Maintenance, 09/17/18 12:46:43 EDT, Tablet Start Date: 09/17/18 Status: Ordered CPAP Equipment See Instructions, # 1 units, Refills 12, Tot. Refills 12, Maintenance, BiPAP supplies: Mask, tubing, filters, headgear, chin strap, heated water chamber Dx: ELSA G47.33 Length of need 99 months Pleasefax to [facility], [phone], 09/04/18 15:13:48 EDT, Co... Start Date: 09/04/18 Status: Ordered CPAP Equipment See Instructions, # 1 units, Refills 12, Tot. 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 Start Date: 06/30/17 Status: Ordered diphenhydrAMINE 25 [...] Soft Stop, 02/18/20 9:42:00 EDT[facility], cm, 12/30/19 11:15:00 EDT, Height, 55.3, kg, 04/19/19 8:36:00 EST, Dry Weight Start Date: 02/18/20 Status: Ordered lisinopril 10 mg oral tablet 10 mg, 1, tablet, By Mouth, Daily, # 30 tablet, Refills 11, Tot. Refills 11, Maintenance, 02/18/20 9:43:00 EDT, [facility] 154.9, cm, 12/30/19 11:15:00 EDT,Height, 55.3, [...] Refills, Maintenance, 02/18/20 9:43:00 EDT, EC Capsule, [facility]/pharmacy #0957, 154.9, cm, 12/30/19 11:15:00 EDT, Height, 55.3, kg, 04/19/19 8:36:00 EST, Dry Weight Start Date: 02/18/20 Status: Ordered ProAir HFA 90 mcg/inh inhalation aerosol with adapter 2, puffs, Inhalation, 4 times a day, PRN, # 1 each, Refills 11, Tot. Refills 11, Maintenance, 02/18/20 9:43:00 EDT, Route to Pharmacy Electronically, [id number], [facility]/pharmacy #0957, 154.9, cm, 12/30/19 11:15:00 EDT, Height, 5... Start Date: 02/18/20 Stop Date: 02/12/21 Status: Ordered Stiolto Respimat 60 ACT 2.5 mcg-2.5 mcg/inh inhalation aerosol 2 puffs, Inhalation, Every 24 hours, to replace tiotropium, # 4 Gm, 11 Refills, Maintenance, 02/18/20 9:43:00 EDT, Aerosol, [facility]/pharmacy #0957, 154.9, cm, 12/30/19 [...] 03/03/20 15:21:00 EDT, 12/02/19 15:20:00 EDT, Tablet, [facility]/pharmacy #0957, 154.9, cm, 08/22/19 15:10:00 EDT, Height, 55.3, kg, 04/19/19 8:36:00 EST, Dry Weight Start Date: 12/02/19 Stop Date: 03/03/20 Status: Ordered Topamax 50 mg oral tablet 1 tablet = 50 mg, By Mouth, 2 times a day, # 180 tablet, 1 Refills, Maintenance, 09/18/19 8:59:00 EDT, Tablet, [facility]/pharmacy #0957, 154.9, cm, 08/22/19 15:10:00 EDT, Height, [...]
--- OUTSIDE RECORDS SUMMARY | 2022-12-26 10:37 | XMS_ITS | Continuity of Care Document ---
Author Name Unknown Organization [facility] Address [address] [place] [address]- Care Team Providers Care Center Director Name Role Phone Divina MARINELLI, Adalberto Reeder Primary Care Physician Encounter [facility] Date(s): 10/26/21 - 11/25/[address] [address]- Allergies, Adverse Reactions, Alerts Substance Reaction Severity Status Zoloft O/E - Parkinsonian tremor Ac tive Rubber Active Other Environmental Allergy 1 Active 1ELASTIC Immunizations Given and Recorded Vaccine Date Status Refusal Reason SARS-CoV-2 mRNA (vrnhtvd-fmxk-ufhnu) vax 09/14/21 Given SARS-CoV-2 (COVID-19) mRNA BNT-162b2 [...] 17:04:00 EDT, Aerosol, Route to Pharmacy Electronically, [id number]... Start Date: 08/03/20 Status: Ordered alendronate 70 mg oral tablet 1 tablet = 70 mg, By Mouth, Every week, # 12 tablet, 3 Refills, Maintenance, 09/14/21 10:11:00 EDT,Tablet, [facility]/pharmacy #6775, Partial fill upon patient request if the [...] with meals, # 180 tablet, 1 Refills, [facility] 23508, 90, TAKE 1 TABLET BY MOUTH TWICE [...] PACK, # 56 tablet, 3 Refills, Acute, [facility] STORE 58040, 154.9, cm, 06/11/20 9:48:00 EST, Height, 58, kg, 06/05/20 12:02:00 EST, Dry Weight Start Date: 08/03/20 Status: Ordered clonazePAM 0.25 mg oral tablet, disintegrating See Instructions, 1 tablet By Mouth 3-4 times a day. Mass Pat Reviewed. Please fill on/after 11/05/21, # 90 tablet, 1 Refills, Maintenance, 10/22/21 13:50:00 EDT, [facility], Partial fill upon patient request if the prescription is for a schedu... Start Date: 10/22/21 Status: Ordered CPAP Equipment See Instructions, # 1 units, Refills 12, Tot. 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 Start Date: 06/30/17 Status: Ordered CPAP Equipment See Instructions, # 1 each, Refills 12, Tot. Refills 12, Maintenance, BiPAP supplies: Mask, tubing,filters, headgear, chin strap, heated water chamber Dx: ELSA G47.33 Length of need 99 months Please fax to [facility] fax # [phone], 07/02/20 14:50:0... Start Date: 07/02/20 Status: Ordered [...] # 12 each, 11 Refills, [facility], 154.8, cm, 09/14/21 9:50:00 EDT, Height, 56, kg, 12/09/20 9:16:00 EDT, Dry Weight Start Date: 11/17/21 Status: Ordered fluticasone 50 mcg/inh nasal spray See Instructions, USE 1 SPRAY IN EACH NOSTRIL DAILY, # 48 mL, 11 Refills, [facility], 90, USE 1 SPRAY IN EACH NOSTRIL [...] 09/28/20 13:15:00 EDT, Route to Pharmacy Electronically, [facility]/pharmacy #0957, 154.9, cm, 09/22/20 10:26:00 EDT, Height, 58, kg, 06/05/20 12:02:00 EST, Dry Weight Start Date: 09/28/20 Stop Date: 09/23/21 Status: Ordered melatonin 3 mg oral tablet 1 tablet = 3 mg, By Mouth, Daily at bedtime, PRN Insomnia, # 60 tablet, 11 Refills, Maintenance, 03/29/21 21:06:00 EST, [facility]/pharmacy #0957, Partial fill upon [...] each, Refills 3, Tot. Refills 3, Maintenance, [place] Ensure 1 can TID. Dx: C34.90, R63.4, [...] # 4 mL, 11 Refills, [facility], 154.8, cm, 09/14/21 9:50:00 EDT, Height, 56, [...] Clubbing(Confirmed) Active Drug abuse: Suboxone via Exp [facility](Confirmed) Active Esophageal reflux (GERD)(Confirmed) 05/09/12 [...]
--- OUTSIDE RECORDS SUMMARY | 2022-12-26 10:37 | XMS_ITS | Continuity of Care Document ---
Author Name Unknown Organization [facility] Address [address] [place] [address]- Care Team Providers Care Restaurant And Bar Manager Name Role Phone Epifanio SMALLWOOD, Mavis Mak Primary Care Physician Encounter [facility] Date(s): 11/18/22 - 11/25/22 [facility] [address] [place] [address]- Encounter Diagnosis Metastatic adenocarcinoma to brain(Discharge Diagnosis) - 11/18/22 Hypertension(Discharge Diagnosis) - 11/18/22 Lung cancer(Discharge Diagnosis) - 11/18/22 JASON (generalized anxiety disorder)(Discharge Diagnosis) - 11/18/22 Major depressive disorder, [facility](Discharge Diagnosis) - 11/18/22 Opioid use disorder(Discharge Diagnosis) - 11/18/22 Insomnia(Discharge Diagnosis) - 11/18/22 Esophageal reflux (GERD)(Discharge Diagnosis) - 11/18/22 Papule of skin(Discharge Diagnosis) - 11/18/22 Emphysema of lung: mixed emphysema/UIP(Discharge Diagnosis) - 11/18/22 Attending Physician: Mavis Allen Allergies, Adverse Reactions, Alerts Substance Reaction Severity Status Zoloft O/E - Parkinsonian tremor Ac tive Rubber Active Other Environmental Allergy 1 Active 1ELASTIC Immunizations Given and Recorded Vaccine Date Status Refusal Reason [id number] 12y+ bivalent booster vax 05/11/22 Recorded influenza [...] vaccine, inactivated 04/23/08 Give n SARS-CoV-2 mRNA ([id number]) vax 12/14/21 Given SARS-CoV-2 mRNA ([id number]-[id number]) vax 09/14/21 Given SARS-CoV-2 (COVID-19) mRNA BNT-162b2 [...] 1 Refills, Maintenance, 11/18/22 15:43:00 EDT, Tablet, [facility], Partial fill upon patient request if the prescription is for a schedule II opioid drug., 154.94, cm, 11/18/22 15:19:00 EDT, H... Start Date: 11/18/22 Status: Ordered calcium-vitamin D 600 mg-400 intl units oral tablet 1 tablet, By Mouth, 2 times a day with meals, # 180 tablet, 0 Refills, Maintenance, 11/17/22 12:06:00 EDT, [facility], 90, TAKE 1 TABLET BY MOUTH TWICE [...] Refills, Maintenance, 11/18/22 16:36:00 EDT, DIS Tablet, [facility]/pharmacy #0957, Partial fill upon patient [...] EACH USE., # 12 each, 11 Refills, [facility], 154.8, cm, 09/14/21 9:50:00 EDT, Height, 56, kg, 12/09/20 9:16:00 EDT, Dry Weight Start Date: 11/17/21 Status: Ordered fluticasone 50 mcg/inh nasal spray See Instructions, USE 1 SPRAY IN EACH NOSTRIL DAILY, # 48 mL, 11 Refills, [facility], 90, USE 1 SPRAY IN EACH NOSTRIL DAILY, 154.8, cm, 09/14/21 9:50:00 EDT, Height, 56, kg, 12/09/20 9:16:00 EDT, Dry Weight Start Date: 11/15/21 Status: Ordered lisinopril 10 mg oral tablet 1, tablet, By Mouth, Daily, # 90 tablet, Refills 3, Route to Pharmacy Electronically, [facility] 14594, 154.8, cm, 09/14/21 9:50:00 EDT, Height, 56, kg, 12/09/20 9:16:00 EDT, Dry Weight Start Date: 12/07/21 Status: Ordered melatonin 3 mg oral tablet 2 tablet = 6 mg, By Mouth, Daily at bedtime, PRN Insomnia, # 60 tablet, 2 Refills, Maintenance, 08/04/22 12:21:00 EDT, [facility]/pharmacy #0957, Partial fill upon patient [...] 0 Refills, Maintenance, 08/01/22 14:52:00 EDT, ECCapsule, [facility]/pharmacy #0957, Partial fill upon patient [...] each, 2 Refills, Maintenance, 11/15/22 10:32:00 EDT, [facility]/pharmacy #0957, 154.94, cm, 11/04/22 16:07:00 EDT, Height, [...] Confirmed Active Papule of skin Confirmed Active *[phone] Tightening Machine Operator Sandra Rob Confirmed Active Pelvic mass Confirmed Active Emphysema of lung: mixed emphysema/UIP Confirmed Active Major depressive disorder, [facility] Confirmed Active Resting tremor Confirmed Active Tobacco abuse Confirmed Active Tubular adenoma of colon 1 Confirmed 04/22/19 Active 1repeat screening colonoscopy in 2023 Diagnosis Diagnosis Type Effective Dates Health Status Clinical Service Informant Metastatic adenocarcinoma to brain Discharge Diagnosis 11/18/22 Hypertension Discharge Diagnosis 11/18/22 Lung cancer Discharge Diagnosis 11/18/22 JASON (generalized anxiety disorder) Discharge Diagnosis 11/18/22 Major depressive disorder, [facility] Discharge Diagnosis 11/18/22 Opioid use disorder Discharge Diagnosis 11/18/22 Insomnia Discharge Diagnosis 11/18/22 Esophageal reflux (GERD) Discharge Diagnosis 11/18/22 Papule of skin Discharge Diagnosis 11/18/22 Emphysema of lung: mixed emphysema/UIP Discharge Diagnosis 11/18/22 Vital Signs Most recent to oldest [Reference Range]: 1 Height 154.94 cm (11/18/22 3:19 PM) Weight 56.4 kg (11/18/22 3:19 PM) Oxygen Saturation [94-100 %] 95 % (11/18/22 3:19 PM) Pulse Rate [55-90 bpm] 82 bpm (11/18/22 3:19 PM) Body Mass Index [18.5-24.99 kg/m2] 23.49 kg/m2 (11/18/22 3:19 PM) Blood Pressure [90-138/55-84 mm Hg] 101/ 69mm Hg (11/18/22 3:19 PM) Temperature [96.8-100.4 DegF] 97.3 DegF (11/18/22 3:19 PM) Mode of Delivery (Oxygen) Room air (11/18/22 3:19 PM) Blood pressure sites Arm, left (11/18/22 3:19 PM) Temperature Route Temporal (11/18/22 3:19 PM) Weight Obtained Via Standing scale (11/18/22 3:19 PM) Social History Social History Type Response Smoking Status 10 or more cigarette s (1/2 pack or more)/day in last 30 days; Interested in cessation: No; Patient wants NRT during admission No entered on: 11/25/22 Sex Note * Katelyn Jorgensen: PERFORM, SIGN, VERIFY Event Display: Patient Education/Instruction Authored Date: [id number] [facility] Clinical Summary Name ANA MARIA SCHMIDT Age 67 Years 1955 PCP Epifanio SMALLWOOD, [id number] Visit Date 11/18/2022 15:16:00 Additional Instructions: Scheduled Appointments?? Future Appointments ?*[facility] ?Phone:??--?Fax:??-- ?Appt. Date:??11/21/2022?9:30 AM ?Scheduled Provider:??[facility] ?*[facility] ?[address],??[address] ?Phone:??--?Fax:??-- ?Appt. Date:??01/04/2023?9:20 AM ?Scheduled Provider:??Mavis Allen Follow-Up Instructions ?? With: Address: When: Mavis Allen 11/18/2022 12:00 AM Comments: follow up with me end of december med review Diagnosis Medications: Please continue your medications until treatment is completed or stopped by your provider. Discuss any questions related to medications with your provider. New Medications [facility]/pharmacy #[id number], [address], [place] [id number], [phone] Ascorbic Acid (ascorbic acid 1000 mg oral tablet) 1 tab(s) Oral Daily. Refills: 1. Next Dose: Medications to Continue with No Changes These medications were not printed or sent to your pharmacy Acetaminophen (Tylenol 325 mg oral tablet) 650 Milligram Oral every 6 hours as needed Pain , Mild. Next Dose: Albuterol (Ventolin HFA 108 mcg/inh inhalation aerosol with adapter) 2 puff(s) Inhalation 4 times aday as needed NEEDED FOR WHEEZING. Refills: 2. Next Dose: Alendronate (alendronate 70 mg oral tablet) 1 tab(s) Oral every week. Refills: 3. Next Dose: Calcium And Vitamin D Combination (calcium-vitamin D 600 mg-400 intl units oral tablet) 1 tab(s) Oral two times a day with meals. Refills: 0. Next Dose: Fluticasone (Flovent HFA 220 mcg/inh [...] as needed Insomnia. Refills: 2. Next Dose: Methadone (methadone 10 mg/5 mL oral solution) 40 Milliliter Oral Daily before breakfast. Next Dose: Nicotine (Nicotrol Inhaler) 1 inhalation Inhalation every hour as needed Other. Nicotine WithdrawalSymptoms (NOT to exceed 16 doses per day). Next Dose: olodaterol-tiotropium (Stiolto Respimat 60 ACT 2.5 mcg-2.5 mcg/inh inhalation aerosol) Next Dose: Omeprazole (omeprazole 20 mg oral enteric coated capsule) 1 capsule Oral Daily. Refills: 0. Next Dose: Allergy Info:?? Other Environmental Allergy; Rubber; Zoloft Medications Given This Visit Future Orders ?No future orders Vital Signs Height 154.94 cm Weight 56.4 kg BMI 23.49 kg/m2 Blood Pressure 101 mm Hg/69 mm Hg Temperature 97.3 DegF Pulse Rate 82 bpm Respiratory Rate 02 Sat Mode of Delivery 95 %/Room air You can now view a summary of your hospital visit from the comfort of your home through a free online portal called [facility]. [employer] is a website that allows you to securely view your medical information including discharge summary, medications and follow-up visits. ??You can alsosend a secure electronic message to your doctor???s office to request appointments, renew medications or just ask a question. You can enroll at [email or web address] or register during your next office visit. [...] primary care provider, you may find a [facility] provider by calling [facility] at [phone]. For information about the plan of care [...] Primary Care Nurse Name: Mavis Allen Position: [facility] PCO Associate Professional Member Role: PCP Address: Address: [address] [place] [address]. [address]rd [address] [place], [place] [address] Name: Allyn Rhoades Position: S RN Member [...] Persons Name: JOSELIN SCHMIDT Address: home [address] [place] [address] Name: ALYSE HAUSER Address: home [address] [place] [id number] Name: TONY, ONE AT THIS TIME
--- OUTSIDE RECORDS SUMMARY | 2022-12-26 10:37 | XMS_ITS | Continuity of Care Document ---
Author Name Unknown Organization [facility] Address [address] [place] [address]- Care Team Providers Care Screw Remover Name Role Phone Divina MARINELLI, Adalberto Reeder Primary Care Physician Encounter [facility] Date(s): 07/21/21 - 08/20/[address] [address]- Allergies, Adverse Reactions, Alerts Substance Reaction Severity [...] 17:04:00 EDT, Aerosol, Route to Pharmacy Electronically, [id number]... Start Date: 08/03/20 Status: Ordered BiPAP Machine [...] 11 Refills, Maintenance, 11/05/20 17:11:00 EDT, Tablet, [facility]/pharmacy #0957, 1 tablet By [...] 56 tablet, 3 Refills, Acute, [facility], 154.9, cm, 06/11/20 9:48:00 EST, Height, 58, [...] months Please fax to [facility], [phone],... Start Date: 06/30/17 Status: Ordered CPAP Equipment See Instructions, # 1 each, Refills 12, Tot. Refills 12, Maintenance, BiPAP supplies: Mask, tubing,filters, headgear, chin strap, heated water chamber Dx: ELSA G47.33 Length of need 99 months Please fax to [facility] fax # [phone], 07/02/20 14:50:0... Start Date: 07/02/20 Status: Ordered cyanocobalamin 500 mcg oral tablet 1 tablet = 500 mcg, By Mouth, Daily, on empty stomach, # 90 tablet, 3 Refills, Maintenance, 03/26/21 20:06:00 EST, Tablet, [facility]/pharmacy #0957, Partial fill [...] tablet, 11 Refills, Maintenance, 03/29/21 21:06:00 EST, [facility]/pharmacy #0957, Partial fill [...] each, Refills 3, Tot. Refills 3, Maintenance, [place] Ensure 1 can TID. Dx: C34.90, R63.4, 03/29/21 15:29:00 EST, Supply Start Date: 03/29/21 Status: Ordered omeprazole 20 mg oral enteric coated capsule 1 capsule = 20 mg, By Mouth, Daily, # 90 capsule, 3 Refills, Maintenance, 07/08/21 15:23:00 EST, ECCapsule, [facility]/pharmacy #0957, Partial fill [...] HPV: Positive in 07/15; neg i n 9/10, negative in 10/16(Confirmed) Active Hypertension(Confirmed) 08/23/10 Active [...]
--- OUTSIDE RECORDS SUMMARY | 2022-12-26 10:38 | XMS_ITS | Continuity of Care Document ---
Author Name Unknown Organization [facility] Address [address] [place] [address], [address] [place] [address]- Care Team Providers Care Construction Job Cost Estimator Name Role Phone Divina MARINELLI, Adalberot Reeder Primary Care Physician Encounter [facility] Date(s): 05/12/20 - 06/11/20 [facility] [address] [place] [address], [address] [place], [place] [address] Referring Physician: Elizabeth Varma Allergies, Adverse Reactions, Alerts Substance Reaction Severity [...] tablet = 0.5 mg, By Mouth, Once, body recall instructor to procedure. May repeat X 1, # [...] 3 Refills, Maintenance, 02/18/20 9:41:00 EDT, Tablet, [facility]/pharmacy #0957, 154.9, cm, 12/30/19 11:15:00 EDT, Height, 55.3, kg, 04/19/19 8:36... Start Date: 02/18/20 Status: Ordered clonazePAM 1 mg oral tablet 1 tablet = 1 mg, By Mouth, 3 times a day, Please fax to [facility] on [address] [phone], # 90 tablet, 2 Refills, Maintenance, 09/17/18 12:46:43 EDT, Tablet Start Date: 09/17/18 Status: Ordered CPAP Equipment See Instructions, # 1 units, Refills 12, Tot. Refills 12, Maintenance, BiPAP supplies: Mask, tubing, filters, headgear, chin strap, heated water chamber Dx: ELSA G47.33 Length of need 99 months Pleasefax to [facility], [phone], 09/04/18 15:13:48 EDT, Co... Start Date: 09/04/18 Status: Ordered CPAP Equipment See Instructions, # 1 units, Refills 12, Tot. Refills 12, Maintenance, BIPAP supplies: Mask, tubing, filters, headgear, chin strap, water chamber 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) Lengthof need 99 months Please fax to [facility], [phone],... Start Date: 06/30/17 Status: Ordered Eucerin Unscented [...] Gm, 11 Refills, Maintenance, 02/18/20 9:43:00 EDT, [facility]/pharmacy #0957,1 sprays Nasal Daily, 154.9, cm, 12/30/19 11:15:00 EDT, Height, 55.3, kg, 04/19/19 8:36:00 EST, DryWeight Start Date: 02/18/20 Status: Ordered Flovent HFA 220 mcg/inh inhalation aerosol See Instructions, TAKE 2 PUFFS BY MOUTH TWICE A DAY RINSE MOUTH AND THROAT AFTER EACH USE, # 12 Unknown, 11 Refills, Soft Stop, 02/18/20 9:42:00 EDT, [facility]/pharmacy #0957, 154.9, cm, 12/30/19 11:15:00 EDT, Height, 55.3, kg, 04/19/19 8:36:00 EST, Dry Weight Start Date: 02/18/20 Status: Ordered lisinopril 10 mg oral tablet 10 mg, 1, tablet, By Mouth, Daily, # 30 tablet, Refills 11, Tot. Refills 11, Maintenance, 02/18/20 9:43:00 EDT, Route to Pharmacy Electronically, [facility]/pharmacy #0957, 154.9, cm, 12/30/19 11:15:00 EDT,Height, 55.3, [...] 07/06/20 23:00:00 EST, 06/06/20 19:18:00 EST, Tablet, [facility] [...] 04/20/20 13:51:00 EST, Route to Pharmacy Electronically, [id number], [facility]/pharmacy #0957, 154.9, cm, 12/30/19 11:15:00 EDT, Height,... Start Date: 04/20/20 Stop Date: 04/15/21 Status: Ordered Stiolto Respimat 60 ACT 2.5 mcg-2.5 mcg/inh inhalation aerosol 2 puffs, Inhalation, Every 24 hours, to replace tiotropium, # 4 Gm, 11 Refills, Maintenance, 02/18/20 9:43:00 EDT, Aerosol, [facility]/pharmacy #0957, 154.9, cm, 12/30/19 11:15:00 EDT, Height, [...] 3 Refills, Maintenance, 03/16/20 16:51:00 EST, Tablet, [facility]/pharmacy #0957, 154.9, cm, 12/30/19 11:15:00 EDT, Height, [...] Active Clubbing(Confirmed) Active Drug abuse: Suboxone via [facility](Confirmed) Active Esophageal reflux (GERD)(Confirmed) 05/09/12 Active [...]
--- OUTSIDE RECORDS SUMMARY | 2022-12-26 10:38 | XMS_ITS | Continuity of Care Document ---
Author Name Unknown Organization [facility] Address [address] [place] [address]- Care Team Providers Care Carousel Operator Name Role Phone Divina MARINELLI, Adalberto Reeder Primary Care Physician Encounter [facility] Date(s): 05/06/21 - 06/05/[address] [address]- Allergies, Adverse Reactions, Alerts Substance Reaction Severity [...] 17:04:00 EDT, Aerosol, Route to Pharmacy Electronically, [id number]... Start Date: 08/03/20 Status: Ordered BiPAP Machine [...] 11 Refills, Maintenance, 11/05/20 17:11:00 EDT, Tablet, [facility]/pharmacy #0957, 1 tablet By Mouth 2 [...] 56 tablet, 3 Refills, Acute, [facility], 154.9, cm, 06/11/20 9:48:00 EST, Height, 58, kg, 06/05/20 12:02:00 EST, Dry Weight Start Date: 08/03/20 Status: Ordered clonazePAM 1 mg oral tablet 1 tablet = 1 mg, By Mouth, 2 times a day, PRN Anxiety, Please dispense on/after 06/09/21, # 60 tablet, 0 Refills, Maintenance, 05/31/21 14:34:00 EST, Tablet, [facility]/pharmacy #0957, 154.8, cm, 04/20/21 13:17:00 EST, Height, 56, kg, 12/09/20 9:16:00 EDT, Dry... Start Date: 05/31/21 Status: Ordered CPAP Equipment See Instructions, # 1 units, Refills 12, Tot. Refills 12, Maintenance, BIPAP supplies: Mask, tubing, filters, headgear, chin strap, water chamber 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) Lengthof need 99 months Please fax to [facility], [phone],... Start Date: 06/30/17 Status: Ordered CPAP Equipment See Instructions, # 1 each, Refills 12, Tot. Refills 12, Maintenance, BiPAP supplies: Mask, tubing,filters, headgear, chin strap, heated water chamber Dx: ELSA G47.33 Length of need 99 months Please fax to [facility] fax # [phone], 07/02/20 14:50:0... Start Date: 07/02/20 Status: Ordered [...] 06/23/20 10:00:00 EST, Route to Pharmacy Electronically, [facility]/pharmacy #0957, To replace Topamax. Partial fillupon patient request if the prescription is for a... Start Date: 06/23/20 Status: Ordered lisinopril 10 mg oral tablet 10 mg, 1, tablet, By Mouth, Daily, # 90 tablet, Refills 3, Tot. Refills 3, Maintenance, 09/28/20 13:15:00 EDT, Route to Pharmacy Electronically, [facility]/pharmacy #0957, 154.9, cm, 09/22/20 10:26:00 EDT, Height, 58, kg, 06/05/20 12:02:00 EST, Dry Weight Start Date: 09/28/20 Stop Date: 09/23/21 Status: Ordered melatonin 3 mg oral tablet 1 tablet = 3 mg, By Mouth, Daily at bedtime, PRN Insomnia, # 60 tablet, 11 Refills, Maintenance, 03/29/21 21:06:00 EST, [facility]/pharmacy #0957, Partial fill upon patient request if the prescription is for a schedule II opioid drug., 154.8, cm, 03/23/21 11... Start Date: 03/29/21 Status: Ordered nicotine 2 mg oral transmucosal lozenge 1 lozenge = 2 mg, By Mouth, Every 2 hours, # 72 each, 11 Refills, Maintenance, 10/13/20 8:35:00 EDT, [facility]/pharmacy #0957, Partial fill upon patient request [...] each, Refills 3, Tot. Refills 3, Maintenance, [place] Ensure 1 can TID. Dx: C34.90, R63.4, 03/29/21 15:29:00 EST, Supply Start Date: 03/29/21 Status: Ordered Stiolto Respimat 60 ACT 2.5 mcg-2.5 mcg/inh inhalation aerosol 2 puffs, Inhalation, Every 24 hours, to replace tiotropium, # 4 Gm, 11 Refills, Maintenance, 11/05/20 17:11:00 EDT, Aerosol, [facility]/pharmacy #0957, 154.9, cm, 10/13/20 7:56:00 EDT, Height, [...] Active Clubbing(Confirmed) Active Drug abuse: Suboxone via [facility](Confirmed) Active Esophageal reflux (GERD)(Confirmed) 05/09/12 [...]
--- OUTSIDE RECORDS SUMMARY | 2022-12-26 10:38 | XMS_ITS | Continuity of Care Document ---
Author Name Unknown Organization [facility] Address [address] [place] [address]- Care Team Providers Care Tax Credit Leasing Consultant Name Role Phone Divina MARINELLI, Adalberto Reeder Primary Care Physician Encounter [facility] Date(s): 04/29/20 - 05/29/[address] [address]- Allergies, Adverse Reactions, Alerts Substance Reaction Severity [...] Refills, Maintenance, 07/31/19 11:08:00 EDT, Tablet, [facility]/pharmacy #0957, 154.9, cm, 07/04/19 9:38:00 EST, [...] tablet = 0.5 mg, By Mouth, Once, physically impaired teacher to procedure. May repeat X 1, # 2 tablet, 0 Refills, Soft Stop, 04/24/20 11:56:00 EST, Tablet, [facility]/pharmacy #0957, Partial fill upon patient [...] Refills, Maintenance, 02/18/20 9:43:00 EDT, Tablet, [facility]/pharmacy #0957, 1 tablet By Mouth 2 [...] 9:42:00 EDT, Route to Pharmacy Electronically, [facility]/pharmacy #0957, 154.9, cm, 12/30/19 11:15:00 EDT, Height, 55.3, kg, 04/19/19 8:36:00 EST, Dry Weight Start Date: 02/18/20 Status: Ordered cetirizine 10 mg oral tablet 1 tablet = 10 mg, By Mouth, Daily, PRN Other, PRN allergies, # 30 tablet, 11 Refills, Maintenance, 02/18/20 9:43:00 EDT, Tablet, [facility]/pharmacy #0957, 154.9, cm, 12/30/19 11:15:00 EDT, Height, 55.3, kg, 04/19/19 8:36:00 EST, Dry Weight Start Date: 02/18/20 Status: Ordered chantix 1mg tablet 1 tablet = 1 mg, By Mouth, 2 times a day, after meals, to begin after completing starter pack, # 1 pack/packet, 3 Refills, Maintenance, 02/18/20 9:41:00 EDT, Tablet, [facility]/pharmacy #0957, 154.9, cm, 12/30/19 11:15:00 EDT, Height, 55.3, kg, 04/19/19 8:36... Start Date: 02/18/20 Status: Ordered clonazePAM 1 mg oral tablet 1 tablet = 1 mg, By Mouth, 3 times a day, Please fax to [facility] on [address] [phone], # 90 tablet, 2 Refills, Maintenance, 09/17/18 12:46:43 EDT, Tablet Start Date: 09/17/18 Status: Ordered CPAP Equipment See Instructions, # 1 units, Refills 12, Tot. Refills 12, Maintenance, BiPAP supplies: Mask, tubing, filters, headgear, chin strap, heated water chamber Dx: ELSA G47.33 Length of need 99 months Pleasefax to [facility], [phone], 09/04/18 15:13:48 EDT, Co... Start Date: 09/04/18 Status: Ordered CPAP Equipment See Instructions, # 1 units, Refills 12, Tot. Refills 12, Maintenance, BIPAP supplies: Mask, tubing, filters, headgear, chin strap, water chamber 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) Lengthof need 99 months Please fax to [facility], [phone],... Start Date: 06/30/17 Status: Ordered [facility] DIPHENHYDRAMINE 25 MG TAB [facility] DIPHENHYDRAMINE 25 MG TAB, 1, tablet, [...] Refills, Maintenance, 04/29/20 17:54:00 EST, Tablet, [facility]/pharmacy #0957, 154.9, cm, 12/30/19 11:15:00 EDT, Height, 55.3, kg, 04/19/19 8:36:00 EST, Dry Weight Start Date: 04/29/20 Status: Ordered Eucerin Unscented topical lotion See Instructions, apply to skin daily, dispense 1 jar, # 1 each, 11 Refills, Maintenance, 09/25/19 16:37:00 EDT, [facility]/pharmacy #0957, apply to skin daily, dispense [...] 11 Refills, Maintenance, 02/18/20 9:43:00 EDT, [facility]/pharmacy #0957,1 sprays Nasal Daily, 154.9, cm, 12/30/19 11:15:00 EDT, Height, 55.3, kg, 04/19/19 8:36:00 EST, DryWeight Start Date: 02/18/20 Status: Ordered Flovent HFA 220 mcg/inh inhalation aerosol See Instructions, TAKE 2 PUFFS BY MOUTH TWICE A DAY RINSE MOUTH AND THROAT AFTER EACH USE, # 12 Unknown, 11 Refills, Soft Stop, 02/18/20 9:42:00 EDT, [facility]/pharmacy #0957, 154.9, cm, 12/30/19 11:15:00 EDT, Height, 55.3, kg, 04/19/19 8:36:00 EST, Dry Weight Start Date: 02/18/20 Status: Ordered lisinopril 10 mg oral tablet 10 mg, 1, tablet, By Mouth, Daily, # 30 tablet, Refills 11, Tot. Refills 11, Maintenance, 02/18/20 9:43:00 EDT, Route to Pharmacy Electronically, [facility]/pharmacy #0957, 154.9, cm, 12/30/19 11:15:00 EDT,Height, [...] Maintenance, 02/18/20 9:43:00 EDT, EC Capsule, [facility]/pharmacy #0957, 154.9, cm, 12/30/19 11:15:00 EDT, Height, 55.3, kg, 04/19/19 8:36:00 EST, Dry Weight Start Date: 02/18/20 Status: Ordered ProAir HFA 90 mcg/inh inhalation aerosol with adapter 2, puffs, Inhalation, 4 times a day, PRN, # 1 each, Refills 11, Tot. Refills 11, Maintenance, 04/20/20 13:51:00 EST, Route to Pharmacy Electronically, [id number], [facility]/pharmacy #0957, 154.9, cm, 12/30/19 11:15:00 EDT, Height,... Start Date: 04/20/20 Stop Date: 04/15/21 Status: Ordered Stiolto Respimat 60 ACT 2.5 mcg-2.5 mcg/inh inhalation aerosol 2 puffs, Inhalation, Every 24 hours, to replace tiotropium, # 4 Gm, 11 Refills, Maintenance, 02/18/20 9:43:00 EDT, Aerosol, [facility]/pharmacy #0957, 154.9, cm, 12/30/19 11:15:00 EDT, [...]
--- OUTSIDE RECORDS SUMMARY | 2022-12-26 10:38 | XMS_ITS | Continuity of Care Document ---
Author Name Unknown Organization [facility] ter Address [address] [place] [address]- Care Team Providers Care Patient Safety Sitter Name Role Phone Mavis Allen Primary Care Physician [facility] [place] 06/27/22 - 07/30/[address] [address] Attending Physician: Mavis Allen Admitting Physician: Mavis Allen Referring Physician: Mavis Allen Allergies, Adverse Reactions, Alerts Substance Reaction Severity Status Zoloft O/E - Parkinsonian tremor Ac tive Rubber Active Other Environmental Allergy 1 Active 1ELASTIC Immunizations Given and Recorded Vaccine Date Status Refusal Reason [id number] 12y+ bivalent booster vax 05/11/22 Recorded influenza [...] vaccine, inactivated 04/23/08 Give n SARS-CoV-2 mRNA (ijrftbd-wupz-svmbo) vax 12/14/21 Given SARS-CoV-2 mRNA (okneruk-xyct-ekhgm) vax 09/14/21 Given SARS-CoV-2 (COVID-19) mRNA BNT-162b2 [...] Refills, Maintenance, 05/26/22 19:48:00 EST, [facility], 154.8, cm, 05/25/22 13:21:00 EST, Height, 56, [...] Refills, Maintenance, 07/21/22 6:46:00 EDT, [facility], 90, TAKE 1 TABLET BY MOUTH TWICE [...] tablet, 0 Refills, Maintenance, 07/11/22 15:10:00 EST, [facility]/pharmacy #0957, Partial fill [...] [facility], [phone],... Start Date: 06/30/17 Status: Ordered CPAP Equipment See Instructions, # 1 each, Refills 12, Tot. Refills 12, Maintenance, BiPAP supplies: Mask, tubing,filters, headgear, chin strap, heated water chamber Dx: ELSA G47.33 Length of need 99 months Please fax to [facility] fax # [phone], 07/02/20 14:50:0... Start Date: 07/02/20 Status: Ordered cyanocobalamin 500 mcg oral tablet 1 tablet = 500 mcg, By Mouth, Daily, on empty stomach, # 90 tablet, 3 Refills, Maintenance, 03/26/21 20:06:00 EST, Tablet, [facility]/pharmacy #0957, Partial fill upon patient request if the prescription isfor a schedule II opioid drug., 154.8, cm, 03/23/21... Start Date: 03/26/21 Status: Ordered Flovent HFA 220 mcg/inh inhalation aerosol 2 puffs, Inhalation, 2 times a day, AND THROAT AFTER EACH USE., # 12 each, 11 Refills, [facility] 04712, 154.8, cm, 09/14/21 9:50:00 EDT, Height, 56, kg, 12/09/20 9:16:00 EDT, Dry Weight Start Date: 11/17/21 Status: Ordered fluticasone 50 mcg/inh nasal spray See Instructions, USE 1 SPRAY IN EACH NOSTRIL DAILY, # 48 mL, 11 Refills, [facility], 90, USE 1 SPRAY IN EACH NOSTRIL DAILY, 154.8, cm, 09/14/21 9:50:00 EDT, Height, 56, kg, 12/09/20 9:16:00 EDT, Dry Weight Start Date: 11/15/21 Status: Ordered lisinopril 10 mg oral tablet 1, tablet, By Mouth, Daily, # 90 tablet, Refills 3, Route to Pharmacy Electronically, [facility] 43680, 154.8, cm, 09/14/21 9:50:00 EDT, Height, 56, kg, 12/09/20 9:16:00 EDT, Dry Weight Start Date: 12/07/21 Status: Ordered melatonin 3 mg oral tablet 2 tablet = 6 mg, By Mouth, Daily at bedtime, PRN Insomnia, # 60 tablet, 2 Refills, Maintenance, 04/13/22 16:50:00 EST, [facility]/pharmacy #0957, Partial fill [...] each, Refills 3, Tot. Refills 3, Maintenance, [place] Ensure 1 can TID. Dx: C34.90, R63.4, 03/29/21 15:29:00 EST, Supply Start Date: 03/29/21 Status: Ordered omeprazole 20 mg oral enteric coated capsule 1 capsule = 20 mg, By Mouth, Daily, # 90 capsule, 3 Refills, Maintenance, 07/08/21 15:23:00 EST, ECCapsule, [facility]/pharmacy #0957, Partial fill upon [...] each, 2 Refills, Maintenance, 07/21/22 6:46:00 EDT, [facility] STORE 11450, 154, cm, 06/22/22 15:01:00 EST, Height, 56, [...] Confirmed Active Drug abuse: Suboxone via [facility] Confirmed Active Esophageal reflux (GERD) Confirmed 05/09/12 Active JASON (generalized anxiety disorder) Confirmed Active HPV: Positive in 07/15; 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, negative in 10/16 Confirmed Active Hypertension Confirmed 08/23/10 Active Lung cancer Confirmed Active Lung nodules Confirmed Active Opioid use disorder Confirmed Active Osteoporosis Confirmed Active Pain in finger of right hand Confirmed Active Palpitations Confirmed Active *[id number] paige Escamilla Confirmed Active Pelvic mass Confirmed [...] Care Team Personnel Name: Mavis Allen Position: [facility] PCO Associate Professional Member Role: PCP Address: Address: [address] [place] [address]. [address] [place] [address]- Care Team Related Persons Name: JOSELIN SCHMIDT Address: home [address] [place] [address] Name: ANALISA ALYSE Address: home [address] [place] [address] Name: NO, ONE AT THIS TIME
--- OUTSIDE RECORDS SUMMARY | 2022-12-26 10:38 | XMS_ITS | Continuity of Care Document ---
Author Name Unknown Organization [facility] Address [address] [place] [address]- Care Team Providers Care Dean Of Instruction Name Role Phone Gideon Nice SUPERVISOR ASBESTOS REMOVAL, Jennyfer Primary Care Physician En[place] [id number] Date(s): 02/09/22 - 03/11/[address] [address]- Attending Physician: Angelina Mendoza Admitting Physician: Angelina Menodza Referring Physician: AdmtrAngelina Allergies, Adverse Reactions, Alerts Substance Reaction Severity Status Zoloft O/E - Parkinsonian tremor Ac tive Rubber Active Other Environmental Allergy 1 Active 1ELASTIC Immunizations Given and Recorded Vaccine Date Status Refusal Reason SARS-CoV-2 mRNA (vccojqw-rbcz-bbtru) vax 12/14/21 Given SARS-CoV-2 mRNA (meymwky-hlzb-mdmqp) vax 09/14/21 Given SARS-CoV-2 (COVID-19) mRNA BNT-162b2 [...] 3 Refills, Maintenance, 09/14/21 10:11:00 EDT,Tablet, [facility], Partial fill upon patient request if the [...] # 180 tablet, 1 Refills, [facility], 90, TAKE 1 TABLET BY MOUTH TWICE [...] PhysicianStop 04/15/22 8:28:00 EST, 12/14/21 8:27:00 EDT, [facility], 154.8, cm, 09/14/21 9:50:00 EDT, Height, 56, kg, 12/09/20 9:16:00 EDT, Dry Weight Start Date: 12/14/21 Stop Date: 04/15/22 Status: Ordered clonazePAM 0.25 mg oral tablet, disintegrating See Instructions, 1 tablet By Mouth 2 times a day as needed. Mass Pat Reviewed. Please fill on/after 01/24/22, # 40 tablet, 2 Refills, Maintenance, 01/24/22 16:19:00 EDT, [facility], Partial fill upon patient request if the prescription is for... Start Date: 01/24/22 Status: Ordered CPAP Equipment See Instructions, # 1 units, Refills 12, Tot. Refills 12, Maintenance, BIPAP supplies: Mask, tubing, filters, headgear, chin strap, water chamber 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) Lengthof need 99 months Please fax to [facility], [phone],... Start Date: 06/30/17 Status: Ordered CPAP Equipment See Instructions, # 1 each, Refills 12, Tot. Refills 12, Maintenance, BiPAP supplies: Mask, tubing,filters, headgear, chin strap, heated water chamber Dx: ELSA G47.33 Length of need 99 months Please fax to [facility] fax # [phone], 07/02/20 14:50:0... Start Date: 07/02/20 Status: Ordered cyanocobalamin 500 mcg oral tablet 1 tablet = 500 mcg, By Mouth, Daily, on empty stomach, # 90 tablet, 3 Refills, Maintenance, 03/26/21 20:06:00 EST, Tablet, [facility]/pharmacy #0957, Partial fill upon patient request if the prescription isfor a schedule II opioid drug., 154.8, cm, 03/23/21... Start Date: 03/26/21 Status: Ordered Eucerin Unscented topical lotion See Instructions, apply to skin daily, dispense 1 jar, # 1 each, 11 Refills, Maintenance, 09/25/19 16:37:00 EDT, [facility]/pharmacy #0957, apply to skin daily, dispense [...] EACH USE., # 12 each, 11 Refills, [facility] STORE 06476, 154.8, cm, 09/14/21 9:50:00 EDT, Height, 56, kg, 12/09/20 9:16:00 EDT, Dry Weight Start Date: 11/17/21 Status: Ordered fluticasone 50 mcg/inh nasal spray See Instructions, USE 1 SPRAY IN EACH NOSTRIL DAILY, # 48 mL, 11 Refills, [facility] STORE 35188, 90, USE 1 SPRAY IN EACH NOSTRIL DAILY, 154.8, cm, 09/14/21 9:50:00 EDT, Height, 56, kg, 12/09/20 9:16:00 EDT, Dry Weight Start Date: 11/15/21 Status: Ordered Inderal LA 80 mg oral capsule, extended release 80 mg, 1, capsule, By Mouth, Daily, # 30 capsule, Refills 3, Tot. Refills 3, Maintenance, 06/23/20 10:00:00 EST, Route to Pharmacy Electronically, [facility]/pharmacy #0957, To replace Topamax. Partial fillupon patient request if the prescription is for a... Start Date: 06/23/20 Status: Ordered lisinopril 10 mg oral tablet 1, tablet, By Mouth, Daily, # 90 tablet, Refills 3, Route to Pharmacy Electronically, [facility] STORE 46962, 154.8, cm, 09/14/21 9:50:00 EDT, Height, 56, kg, 12/09/20 9:16:00 EDT, Dry Weight Start Date: 12/07/21 Status: Ordered melatonin 3 mg oral tablet 1 tablet = 3 mg, By Mouth, Daily at bedtime, PRN Insomnia, # 60 tablet, 11 Refills, Maintenance, 01/24/22 16:19:00 EDT, [facility]/pharmacy #0957, Partial fill upon patient request [...] each, Refills 3, Tot. Refills 3, Maintenance, [place] Ensure 1 can TID. Dx: C34.90, R63.4, 03/29/21 15:29:00 EST, Supply Start Date: 03/29/21 Status: Ordered omeprazole 20 mg oral enteric coated capsule 1 capsule = 20 mg, By Mouth, Daily, # 90 capsule, 3 Refills, Maintenance, 07/08/21 15:23:00 EST, ECCapsule, [facility]/pharmacy #0957, Partial fill upon patient request if the prescription is for a schedule II opioid drug., 154.8, cm, 06/29/21 9:00:00 EST,... Start Date: 07/08/21 Status: Ordered Stiolto Respimat 60 ACT 2.5 mcg-2.5 mcg/inh inhalation aerosol 2 puffs, Inhalation, Every 24 hours, TO REPLACE TIOTROPIUM., # 4 mL, 11 Refills, [facility] ST[facility] 73722, 154.8, cm, 09/14/21 9:50:00 EDT, Height, 56, kg, 12/09/20 9:16:00 EDT, Dry Weight Start Date: 11/17/21 Status: Ordered Ventolin HFA 108 mcg/inh inhalation aerosol with adapter 2 puffs, Inhalation, 4 times a day, PRN NEEDED FOR WHEEZING, # 18 each, 5 Refills, [facility] 69528, 154.8, cm, 09/14/21 9:50:00 EDT, Height, 56, [...] in finger of right hand Confirmed Active *[id number] paige Escamilla Confirmed Active Pelvic mass Confirmed [...] Personnel Name: Jennyfer Stokes NP Address: Address: [address] [place] [address]
--- OUTSIDE RECORDS SUMMARY | 2022-12-26 10:38 | XMS_ITS | Continuity of Care Document ---
Author Name Unknown Organization [facility] ter Address [address] [place] [address]- Care Team Providers Care Director Loss Prevention Name Role Phone Divina MARINELLI, Adalberto Reeder Primary Care Physician Encounter [facility] Date(s): 04/19/19 - 04/19/[address] [address]- [facility] Discharge Disposition: A-D/C Home Attending Physician: Oswaldo Parr MD Admitting Physician: Oswaldo Parr MD Referring Physician: Oswaldo Parr MD Allergies, Adverse Reactions, Alerts Substance Reaction [...] 03/19/19 10:53:39 EST, Route to Pharmacy Electronically, [id number], [facility]/pharmacy #1026 Start Date: 03/19/19 Status: [...] 3 times a day, Please fax to [facility] on [facility]. [phone], # 90 tablet, 2 Refills, Maintenance, 09/17/18 12:46:43 EDT, Tablet Start Date: 09/17/18 Status: Ordered CPAP Equipment See Instructions, # 1 units, Refills 12, Tot. Refills 12, Maintenance, BiPAP supplies: Mask, tubing, filters, headgear, chin strap, heated water chamber Dx: ELSA G47.33 Length of need 99 months Pleasefax to [facility], [phone], 09/04/18 15:13:48 EDT, Co... Start Date: 09/04/18 Status: Ordered CPAP Equipment See Instructions, # 1 units, Refills 12, Tot. Refills 12, Maintenance, BIPAP supplies: Mask, tubing, filters, headgear, chin strap, water chamber 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) Lengthof need 99 months Please fax to [facility], [phone],... Start Date: 06/30/17 Status: Ordered diphenhydrAMINE 25 [...] DAY [place] AND THROAT AFTER EACH USE, [facility]/pharmacy #1026 Start Date: 03/15/19 Status: Ordered gabapentin 300 mg oral capsule 600 mg, 2, capsule, By Mouth, Daily at bedtime, # 60 capsule, Refills 11, Tot. Refills 11, Maintenance, 08/28/18 10:07:25 EDT, Route to Pharmacy Electronically, [id number], [facility]/pharmacy #1026 Start Date: 08/28/18 Status: Ordered ibuprofen 600 mg oral tablet 600 mg, 1, tablet, By Mouth, 3 times a day, PRN, with food, # 270 tablet, Refills 11, Tot. Refills 11, Maintenance, as needed for pain, 06/27/17 17:45:19, Route to Pharmacy Electronically, [id number], [facility]/pharmacy #1026 Start Date: 06/27/17 Status: Ordered lisinopril 10 mg oral tablet 10 mg, 1, tablet, By Mouth, Daily, # 30 tablet, Refills 11, Tot. Refills 11, Maintenance, 07/05/18 14:09:24 EST, Route to Pharmacy Electronically, [id number], [facility]/pharmacy #1026 Start Date: 07/05/18 Status: [...] 07/23/18 12:48:24 EDT, Route to Pharmacy Electronically, [id number], [facility]/pharmacy #1026 Start Date: 07/23/18 Stop [...] Active Clubbing(Confirmed) Active Drug abuse: Suboxone via [facility](Confirmed) Active Esophageal reflux (GERD)(Confirmed) 05/09/12 Active JASON (generalized anxiety disorder)(Confirmed) Active HPV: Positive in 07/15; neg i n 01/15, negative in 10/16(Confirmed) Active Hypertension(Confirmed) 08/23/10 Active Emphysema of lung: mixed emphysema/UIP(Confirmed) Active Major depressive disorder, [facility](Confirmed) Active Resting tremor(Confirmed) Active Tobacco abuse(Confirmed) Active Procedures Procedure Date Related Diagnosis Body Site Status Colonoscopy 04/19/19 Completed Esophagogastroduodenoscopy and biopsy 04/19/19 Completed Vital Signs Most recent to oldest [Reference Range]: 1 2 3 Height 154.9 cm (04/19/19 8:36 AM) Oxygen Saturation [94-100 %] 99 % (04/19/19 10:24 AM) 99 % (04/19/19 10:16 AM) 100 % (04/19/19 8:36 AM) Pulse Rate [55-90 bpm] 67 bpm (04/19/19 8:36 AM) Blood Pressure [90-138/55-84 mm Hg] 122/76mm Hg (04/19/19 10:24 AM) 110/57mm Hg (04/19/19 10:16 AM) 106/68mm Hg (04/19/19 8:36 AM) Respiratory Rate [16-30 br/min] 18 br/min (04/19/19 10:24 AM) 18 br/min (04/19/19 10:16 AM) 18 br/min (04/19/19 8:36 AM) Temperature [96.8-100.4 DegF] 96.7 DegF *L* (04/19/19 8:36 AM) Mode of Delivery (Oxygen) Room air (04/19/19 10:24 AM) Room air (04/19/19 10:16 AM) Room air (04/19/19 8:36 AM) Blood pressure sites Arm, left (04/19/19 10:24 AM) Arm, left (04/19/19 10:16 AM) Arm, left (04/19/19 8:36 AM) Temperature Route Temporal (04/19/19 8:36 AM) Dry Weight 55.3 kg (04/19/19 8:36 AM) Dry Weight Obtained Via Patient/family s tated (04/19/19 8:36 AM) Social History Social History Type Response Smoking Status 10 or more cigarette s (1/2 pack or more)/day in last 30 days; Other: pt states vapes, states it is approx to 1ppd; entered on: 05/21/18 Sex 1about 7 cigarettes daily
--- OUTSIDE RECORDS SUMMARY | 2022-12-26 10:38 | XMS_ITS | Continuity of Care Document ---
Author Name Unknown Organization [facility] Address [address] [place] [address]- Care Team Providers Care Sous Chef Name Role Phone Mavis Allen Primary Care Physician Encounter [facility] Date(s): 05/13/22 - 10/19/22 [facility] [address] [place] [address]- Discharge Disposition: A-D/C Home Attending Physician: Dylan Grey MD Admitting Physician: Dylan Grey MD Referring Physician: Harry Moody NP Allergies, Adverse Reactions, Alerts Substance Reaction Severity Status Zoloft O/E - Parkinsonian tremor Ac tive Rubber Active Other Environmental Allergy 1 Active 1ELASTIC Immunizations Given and Recorded Vaccine Date Status Refusal Reason [id number] 12y+ bivalent booster vax 05/11/22 Recorded influenza [...] vaccine, inactivated 04/23/08 Give n SARS-CoV-2 mRNA (wxvgzxb-ygxj-vvssn) vax 12/14/21 Given SARS-CoV-2 mRNA (adhuuci-ivdb-aezob) vax 09/14/21 Given SARS-CoV-2 (COVID-19) mRNA BNT-162b2 [...] Refills, Maintenance, 05/26/22 19:48:00 EST, [facility], 154.8, cm, 05/25/22 13:21:00 EST, Height, 56, [...] Refills, Maintenance, 07/21/22 6:46:00 EDT, [facility], 90, TAKE 1 TABLET BY MOUTH TWICE [...] tablet, 0 Refills, Maintenance, 07/11/22 15:10:00 EST, [facility]/pharmacy #0957, Partial [...] Lengthof need 99 months Please fax to [facility], [phone],... Start Date: 06/30/17 Status: Ordered CPAP Equipment See Instructions, # 1 each, Refills 12, Tot. Refills 12, Maintenance, BiPAP supplies: Mask, tubing,filters, headgear, chin strap, heated water chamber Dx: ELSA G47.33 Length of need 99 months Please fax to [facility] fax # [phone], 07/02/20 14:50:0... Start Date: 07/02/20 Status: Ordered [...] EACH USE., # 12 each, 11 Refills, [facility] 68680, 154.8, cm, 09/14/21 9:50:00 EDT, Height, 56, kg, 12/09/20 9:16:00 EDT, Dry Weight Start Date: 11/17/21 Status: Ordered fluticasone 50 mcg/inh nasal spray See Instructions, USE 1 SPRAY IN EACH NOSTRIL DAILY, # 48 mL, 11 Refills, [facility], 90, USE 1 SPRAY IN EACH NOSTRIL DAILY, 154.8, cm, 09/14/21 9:50:00 EDT, Height, 56, kg, 12/09/20 9:16:00 EDT, Dry Weight Start Date: 11/15/21 Status: Ordered lisinopril 10 mg oral tablet 1, tablet, By Mouth, Daily, # 90 tablet, Refills 3, Route to Pharmacy Electronically, [facility] 98038, 154.8, cm, 09/14/21 9:50:00 EDT, Height, 56, kg, 12/09/20 9:16:00 EDT, Dry Weight Start Date: 12/07/21 Status: Ordered melatonin 3 mg oral tablet 2 tablet = 6 mg, By Mouth, Daily at bedtime, PRN Insomnia, # 60 tablet, 2 Refills, Maintenance, 08/04/22 12:21:00 EDT, [facility], Partial fill upon patient [...] each, 11 Refills, Maintenance, 10/13/20 8:35:00 EDT, [facility]/pharmacy #0957, Partial fill upon patient request if the prescription is for a schedule II opioid drug., 1 lozenge By Mouth Every 2 hours, 154.9,... Start Date: 10/13/20 Status: Ordered Nutritional Supplements See Instructions, # 90 each, Refills 3, Tot. Refills 3, Maintenance, [place] Ensure 1 can TID. Dx: C34.90, R63.4, 03/29/21 15:29:00 EST, Supply Start Date: 03/29/21 Status: Ordered omeprazole 20 mg oral enteric coated capsule 1 capsule = 20 mg, By Mouth, Daily, # 90 capsule, 0 Refills, Maintenance, 08/01/22 14:52:00 EDT, ECCapsule, [facility]/pharmacy #0957, Partial fill [...] Refills, Maintenance, 07/21/22 6:46:00 EDT, [facility], 154, cm, 06/22/22 15:01:00 EST, Height, 56, [...] Clubbing Confirmed Active Drug abuse: Suboxone via [facility] Confirmed Active Esophageal reflux (GERD) Confirmed 05/09/12 Active JASON (generalized anxiety disorder) Confirmed Active HPV: Positive in 07/15; 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, negative in 10/16 Confirmed Active Hypertension Confirmed 08/23/10 Active Lung cancer Confirmed Active Lung nodules Confirmed Active Opioid use disorder Confirmed Active Osteoporosis Confirmed Active Pain in finger of right hand Confirmed Active Palpitations Confirmed Active *[id number] Science Writer Sandra Rob Confirmed Active Pelvic mass Confirmed [...] Care Team Personnel Name: Mavis Allen Position: [facility] PCO Associate Professional Member Role: PCP Address: Address: [address] [place] [address]. [address] [place] [address]- Care Team Related Persons Name: JOSELIN SCHMIDT Address: home [address] [place] [address] Name: ALYSE HAUSER Address: home [address] [place] [id number] Name: NO, ONE AT THIS TIME
--- OUTSIDE RECORDS SUMMARY | 2022-12-26 10:38 | XMS_ITS | Continuity of Care Document ---
Author Name Unknown Organization [facility] Address [address] [place] [address], [address] [place] [address]- Care Team Providers Care Wheat Shipper Name Role Phone Divina MARINELLI, Adalberto Reeder Primary Care Physician Encounter [facility] Date(s): 06/03/20 - 07/03/20 [facility] [address] [place] [address], [address] [place], [place] [address] Allergies, Adverse Reactions, Alerts Substance [...] tablet = 0.5 mg, By Mouth, Once, hogshead inspector to procedure. May repeat X 1, # [...] Refills, Maintenance, 02/18/20 9:41:00 EDT, Tablet, [facility]/pharmacy #0957, 154.9, cm, 12/30/19 11:15:00 EDT, Height, 55.3, kg, 04/19/19 8:36... Start Date: 02/18/20 Status: Ordered clonazePAM 1 mg oral tablet 1 tablet = 1 mg, By Mouth, 3 times a day, Please fax to [facility] on [address] [phone], # 90 tablet, 2 Refills, Maintenance, 09/17/18 12:46:43 EDT, Tablet Start Date: 09/17/18 Status: Ordered CPAP Equipment See Instructions, # 1 units, Refills 12, Tot. Refills 12, Maintenance, BIPAP supplies: Mask, tubing, filters, headgear, chin strap, water chamber 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) Lengthof need 99 months Please fax to [facility], [phone],... Start Date: 06/30/17 Status: Ordered CPAP Equipment See Instructions, # 1 each, Refills 12, Tot. Refills 12, Maintenance, BiPAP supplies: Mask, tubing,filters, headgear, chin strap, heated water chamber Dx: ELSA G47.33 Length of need 99 months Please fax to [facility] fax # [phone], 07/02/20 14:50:0... Start Date: 07/02/20 Status: Ordered Eucerin Unscented topical lotion See Instructions, apply to skin daily, dispense 1 jar, # 1 each, 11 Refills, Maintenance, 09/25/19 16:37:00 EDT, [facility]/pharmacy #0957, apply to skin daily, [...] 11 Refills, Maintenance, 02/18/20 9:43:00 EDT, [facility]/pharmacy #0957,1 sprays Nasal Daily, 154.9, cm, 12/30/19 11:15:00 EDT, Height, 55.3, kg, 04/19/19 8:36:00 EST, DryWeight Start Date: 02/18/20 Status: Ordered Flovent HFA 220 mcg/inh inhalation aerosol See Instructions, TAKE 2 PUFFS BY MOUTH TWICE A DAY RINSE MOUTH AND THROAT AFTER EACH USE, # 12 Unknown, 11 Refills, Soft Stop, 02/18/20 9:42:00 EDT, [facility]/pharmacy #0957, 154.9, cm, 12/30/19 11:15:00 [...] 9:43:00 EDT, Route to Pharmacy Electronically, [facility]/pharmacy #0957, 154.9, cm, 12/30/19 11:15:00 EDT,Height, [...] 23:00:00 EST, 06/06/20 19:18:00 EST, Tablet, [facility]/pharmacy #0957, Partial fill upon patient request if the prescription is for a schedule II opioid d... Start Date: 06/06/20 Stop Date: 07/06/20 Status: Ordered ProAir HFA 90 mcg/inh inhalation aerosol with adapter 2, puffs, Inhalation, 4 times a day, PRN, # 1 each, Refills 11, Tot. Refills 11, Maintenance, 04/20/20 13:51:00 EST, Route to Pharmacy Electronically, [id number], [facility]/pharmacy #0957, 154.9, cm, 12/30/19 11:15:00 EDT, Height,... Start Date: 04/20/20 Stop Date: 04/15/21 Status: Ordered Stiolto Respimat 60 ACT 2.5 mcg-2.5 mcg/inh inhalation aerosol 2 puffs, Inhalation, Every 24 hours, to replace tiotropium, # 4 Gm, 11 Refills, Maintenance, 02/18/20 9:43:00 EDT, Aerosol, [facility]/pharmacy #0957, 154.9, cm, 12/30/19 11:15:00 [...] tablet, 11 Refills, Maintenance, 04/20/20 13:59:00 EST, [facility]/pharmacy #0957, 154.9, cm, 12/30/19 11:15:00 EDT, Height, 55.3, kg, 04/19/19 8:36:00 EST, Dry... Start Date: 04/20/20 Status: Ordered Problem List Condition Effective Dates Status Health Status Inform ant Age at leaving school - ged(Confirmed) Active ASCUS(Confirmed) Active 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 Sleep Report(Confirmed) 05/25/11 Active Hep C: Cleared without treatment(Confirmed) Active Clubbing(Confirmed) Active Drug abuse: Suboxone via [facility](Confirmed) Active Esophageal reflux (GERD)(Confirmed) 05/09/12 Active [...]
--- OUTSIDE RECORDS SUMMARY | 2022-12-26 10:38 | XMS_ITS | Continuity of Care Document ---
Author Name Unknown Organization [facility] Address [address] [place] [address]- Care Team Providers Care Seafood Process Worker Name Role Phone Divina MARINELLI, Adalberto Reeder Primary Care Physician Encounter [facility] Date(s): 09/16/21 - 10/16/[address] [address]- Allergies, Adverse Reactions, Alerts Substance Reaction Severity Status Zoloft O/E - Parkinsonian tremor Ac tive Rubber Active Other Environmental Allergy 1 Active 1ELASTIC Immunizations Given and Recorded Vaccine Date Status Refusal Reason SARS-CoV-2 mRNA (xyttird-oqcr-hheya) vax 09/14/21 Given SARS-CoV-2 (COVID-19) mRNA BNT-162b2 [...] 17:04:00 EDT, Aerosol, Route to Pharmacy Electronically, [id number]... Start Date: 08/03/20 Status: Ordered alendronate 70 mg oral tablet 1 tablet = 70 mg, By Mouth, Every week, # 12 tablet, 3 Refills, Maintenance, 09/14/21 10:11:00 EDT,Tablet, [facility]/pharmacy #7604, Partial fill upon patient request if the [...] 11 Refills, Maintenance, 11/05/20 17:11:00 EDT, Tablet, [facility]/pharmacy #0957, 1 tablet By Mouth 2 [...] PACK, # 56 tablet, 3 Refills, Acute, [facility] STORE [facility]385, 154.9, cm, 06/11/20 9:48:00 EST, Height, 58, kg, 06/05/20 12:02:00 EST, Dry Weight Start Date: 08/03/20 Status: Ordered clonazePAM 0.25 mg oral tablet, disintegrating See Instructions, 1 tablet By Mouth 3-4 times a day. Mass Pat Reviewed. Please fill on/after 10/06/21, # 100 tablet, 1 Refills, Maintenance, 09/20/21 10:48:00 EDT, [facility]/pharmacy #0957, Partial fill uponpatient request if the prescription is for a sched... Start Date: 09/20/21 Status: Ordered CPAP Equipment See Instructions, # 1 units, Refills 12, Tot. Refills 12, Maintenance, BIPAP supplies: Mask, tubing, filters, headgear, chin strap, water chamber 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) Lengthof need 99 months Please fax to [facility], [phone],... Start Date: 06/30/17 Status: Ordered CPAP Equipment See Instructions, # 1 each, Refills 12, Tot. Refills 12, Maintenance, BiPAP supplies: Mask, tubing,filters, headgear, chin strap, heated water chamber Dx: ELSA G47.33 Length of need 99 months Please fax to [facility] fax # [phone], 07/02/20 14:50:0... Start Date: 07/02/20 Status: Ordered [...] 11 Refills, Soft Stop, 11/05/20 17:11:00 EDT, [facility]/pharmacy #0957, 154.9, cm, 10/13/20 7:56:00 EDT, Height, 58, kg, 06/05/20 12:02:00 EST, Dry Weight Start Date: 11/05/20 Status: Ordered Inderal LA 80 mg oral capsule, extended release 80 mg, 1, capsule, By Mouth, Daily, # 30 capsule, Refills 3, Tot. Refills 3, Maintenance, 06/23/20 10:00:00 EST, Route to Pharmacy Electronically, [facility]/pharmacy #0957, To replace Topamax. Partial fillupon patient request if the prescription is for a... Start Date: 06/23/20 Status: Ordered lisinopril 10 mg oral tablet 10 mg, 1, tablet, By Mouth, Daily, # 90 tablet, Refills 3, Tot. Refills 3, Maintenance, 09/28/20 13:15:00 EDT, Route to Pharmacy Electronically, [facility]/pharmacy #0957, 154.9, cm, 09/22/20 10:26:00 EDT, [...] each, Refills 3, Tot. Refills 3, Maintenance, [place] Ensure 1 can TID. Dx: C34.90, R63.4, 03/29/21 15:29:00 EST, Supply Start Date: 03/29/21 Status: Ordered omeprazole 20 mg oral enteric coated capsule 1 capsule = 20 mg, By Mouth, Daily, # 90 capsule, 3 Refills, Maintenance, 07/08/21 15:23:00 EST, ECCapsule, [facility]/pharmacy #0957, Partial fill upon patient request if the prescription is for a schedule II opioid drug., 154.8, cm, 06/29/21 9:00:00 EST,... Start Date: 07/08/21 Status: Ordered Stiolto Respimat 60 ACT 2.5 mcg-2.5 mcg/inh inhalation aerosol 2 puffs, Inhalation, Every 24 hours, to replace tiotropium, # 4 Gm, 11 Refills, Maintenance, 11/05/20 17:11:00 EDT, Aerosol, [facility]/pharmacy #0957, 154.9, cm, 10/13/20 7:56:00 EDT, Height, 58, kg, 06/05/20 12:02:00 EST, Dry Weight Start Date: 11/05/20 Status: Ordered Ventolin HFA 108 mcg/inh inhalation aerosol with adapter 2 puffs, Inhalation, 4 times a day, PRN for wheezing, # 18 Gm, 11 Refills, Maintenance, 11/12/20 9:46:00 EDT, Aerosol, [facility]/pharmacy #0957, Partial fill upon patient request [...] Active Clubbing(Confirmed) Active Drug abuse: Suboxone via [facility](Confirmed) Active Esophageal reflux [...]
--- OUTSIDE RECORDS SUMMARY | 2022-12-26 10:38 | XMS_ITS | Continuity of Care Document ---
Author Name Unknown Organization [facility] Address [address] [address]- Care Team Providers Care Language Therapist Name Role Phone Divina MARINELLI, Adalberto Reeder Primary Care Physician [place] [facility] [place] 08/29/19 [facility] [address] [place] [address]- [facility] Attending Physician: Todd Maria MD Allergies, Adverse Reactions, [...] 1 Refills, Maintenance, 07/31/19 11:08:00 EDT, Tablet, [facility]/pharmacy #0957, 154.9, cm, 07/04/19 9:38:00 EST, [...] 11 Refills, Maintenance, 05/28/19 12:01:00 EST, Tablet, [facility]/pharmacy #0957, 1 [...] 03/19/19 10:53:39 EST, Route to Pharmacy Electronically, [id number], [facility]/pharmacy #1026 Start Date: 03/19/19 Status: Ordered cetirizine 10 mg oral tablet 1 tablet = 10 mg, By Mouth, Daily, PRN Other, PRN allergies, # 30 tablet, 11 Refills, Maintenance, 05/28/19 12:01:00 EST, Tablet, [facility]/pharmacy #0957, 154.9, cm, 05/28/19 11:40:00 EST, [...] 3 times a day, Please fax to [facility] [address] [phone], # 90 tablet, 2 Refills, Maintenance, 09/17/18 12:46:43 EDT, Tablet Start Date: 09/17/18 Status: Ordered CPAP Equipment See Instructions, # 1 units, Refills 12, Tot. Refills 12, Maintenance, BiPAP supplies: Mask, tubing, filters, headgear, chin strap, heated water chamber Dx: ELSA G47.33 Length of need 99 months Pleasefax to [facility], [phone], 09/04/18 15:13:48 EDT, Co... Start Date: 09/04/18 Status: Ordered CPAP Equipment See Instructions, # 1 units, Refills 12, Tot. Refills 12, Maintenance, BIPAP supplies: Mask, tubing, filters, headgear, chin strap, water chamber 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) Lengthof need 99 months Please fax to [facility], [phone],... Start Date: 06/30/17 Status: Ordered diphenhydrAMINE 25 [...] Gm, 11 Refills, Maintenance, 05/28/19 12:01:00 EST, [facility]/pharmacy #0957, 1 sprays Nasal Daily, 154.9, cm, 05/28/19 11:40:00 EST, Height, 55.3, kg, 04/19/19 8:36:00 EST, Dry Weight Start Date: 05/28/19 Status: Ordered Flovent HFA 220 mcg/inh inhalation aerosol See Instructions, # 12 Unknown, Refills 11 Tot. Refills 11, TAKE 2 PUFFS BY MOUTH TWICE A DAY [place] AND THROAT AFTER EACH USE, [facility]/pharmacy #1026 Start Date: 03/15/19 Status: Ordered lisinopril 10 mg oral tablet 10 mg, 1, tablet, By Mouth, Daily, # 30 tablet, Refills 11, Tot. Refills 11, Maintenance, 05/28/19 12:01:00 EST, Route to Pharmacy Electronically, [facility]/pharmacy #0957, 154.9, cm, 05/28/19 11:40:00 EST, Height, 55.3, kg, 04/19/19 8:36:00 EST, Dry Weight Start Date: 05/28/19 Status: Ordered nicotine 4 mg oral transmucosal lozenge 1 lozenge = 4 mg, By Mouth, Every 8 hours, for 3 week(s), # 63 lozenge, 1 Refills, Acute 10/03/19 10:28:00 EDT, 08/22/19 10:28:00 EDT, [facility]/pharmacy #0957, 1 lozenge By Mouth Every [...] 05/28/19 12:01:00 EST, Route to Pharmacy Electronically, [id number], [facility]/pharmacy #0957, 154.9, cm, 05/28/19 11:40:00 EST, [...] tablet, 11 Refills, Maintenance, 05/28/19 12:01:00 EST, [facility]/pharmacy #0957, 154.9, cm, 05/28/19 11:40:00 EST, Height, 55.3, kg, 04/19/19 8:36:00 EST,Dry Weight Start Date: 05/28/19 Status: Ordered Problem List Condition Effective Dates Status Health Status Inform ant Age at leaving school - ged(Confirmed) Active ASCUS(Confirmed) Active 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 Sleep Report(Confirmed) 05/25/11 Active Hep C: Cleared without treatment(Confirmed) Active Clubbing(Confirmed) Active Drug abuse: Suboxone via [facility](Confirmed) Active Esophageal reflux (GERD)(Confirmed) 05/09/12 Active JASON (generalized anxiety disorder)(Confirmed) Active HPV: Positive in 07/15; neg i n 01/15, negative in 10/16(Confirmed) Active Hypertension(Confirmed) 08/23/10 Active Zachary Duran, [facility] [id number] active care coordination(Confirmed) Active Emphysema of lung: mixed emphysema/UIP(Confirmed) Active Major depressive disorder, [facility] [employer](Confirmed) Active Resting tremor(Confirmed) Active Tobacco abuse(Confirmed) Active Tubular adenoma of colon(Confirmed) 1 04/22/19 Active 1repeat screening colonoscopy in 2023 Vital Signs Most recent to oldest [Reference Range]: 1 Height 154.9 cm (08/22/19 3:10 PM) Social History Social History Type Response Smoking Status 10 or more cigarette s (1/2 pack or more)/day in last 30 days; Other: pt states vapes, states it is approx to 1ppd; entered on: 05/21/18 Sex 1about 7 cigarettes daily
--- OUTSIDE RECORDS SUMMARY | 2022-12-26 10:38 | XMS_ITS | Continuity of Care Document ---
Author Name Unknown Organization [facility] Address [address] [address]- Care Team Providers Care Railway Equipment Operator Name Role Phone Divina MARINELLI, Adalberto Reeder Primary Care Physician [place] [facility] [place] 09[place]01/[place] [facility] [address] [address]- [facility] Attending Physician: Admtr, Ar8 Allergies, Adverse Reactions, [...] 1 Refills, Maintenance, 07/31/19 11:08:00 EDT, Tablet, [facility]/pharmacy #0957, 154.9, cm, 07/04/19 9:38:00 [...] Refills, Maintenance, 05/28/19 12:01:00 EST, Tablet, [facility]/pharmacy #0957, 1 tablet By Mouth [...] 03/19/19 10:53:39 EST, Route to Pharmacy Electronically, [id number], [facility]/pharmacy #1026 Start Date: 03/19/19 Status: Ordered cetirizine 10 mg oral tablet 1 tablet = 10 mg, By Mouth, Daily, PRN Other, PRN allergies, # 30 tablet, 11 Refills, Maintenance, 05/28/19 12:01:00 EST, Tablet, [facility]/pharmacy #0957, 154.9, cm, 05/28/19 11:40:00 EST, Height, [...] times a day, Please fax to [facility] on [address] [phone], # 90 tablet, 2 Refills, Maintenance, 09/17/18 12:46:43 EDT, Tablet Start Date: 09/17/18 Status: Ordered CPAP Equipment See Instructions, # 1 units, Refills 12, Tot. Refills 12, Maintenance, BiPAP supplies: Mask, tubing, filters, headgear, chin strap, heated water chamber Dx: ELSA G47.33 Length of need 99 months Pleasefax to [facility], [phone], 09/04/18 15:13:48 EDT, Co... Start Date: 09/04/18 Status: Ordered CPAP Equipment See Instructions, # 1 units, Refills 12, Tot. Refills 12, Maintenance, BIPAP supplies: Mask, tubing, filters, headgear, chin strap, water chamber 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) Lengthof need 99 months Please fax to [facility], [phone],... Start Date: 06/30/17 Status: Ordered diphenhydrAMINE 25 [...] 11 Refills, Maintenance, 05/28/19 12:01:00 EST, [facility]/pharmacy #0957, 1 sprays Nasal Daily, 154.9, cm, 05/28/19 11:40:00 EST, Height, 55.3, kg, 04/19/19 8:36:00 EST, Dry Weight Start Date: 05/28/19 Status: Ordered Flovent HFA 220 mcg/inh inhalation aerosol See Instructions, # 12 Unknown, Refills 11 Tot. Refills 11, TAKE 2 PUFFS BY MOUTH TWICE A DAY [place] AND THROAT AFTER EACH USE, [facility]/pharmacy #1026 Start Date: 03/15/19 Status: Ordered lisinopril 10 mg oral tablet 10 mg, 1, tablet, By Mouth, Daily, # 30 tablet, Refills 11, Tot. Refills 11, Maintenance, 05/28/19 12:01:00 EST, Route to Pharmacy Electronically, [facility]/pharmacy #0957, 154.9, cm, 05/28/19 11:40:00 EST, Height, 55.3, kg, 04/19/19 8:36:00 EST, Dry Weight Start Date: 05/28/19 Status: Ordered nicotine 4 mg oral transmucosal lozenge 1 lozenge = 4 mg, By Mouth, Every 8 hours, for 3 week(s), # 63 lozenge, 1 Refills, Acute 10/03/19 10:28:00 EDT, 08/22/19 10:28:00 EDT, [facility]/pharmacy #0957, 1 lozenge By Mouth Every 8 [...] 05/28/19 12:01:00 EST, Route to Pharmacy Electronically, [id number], [facility]/pharmacy #0957, 154.9, cm, 05/28/19 11:40:00 EST, Height,... [...] tablet, 11 Refills, Maintenance, 05/28/19 12:01:00 EST, [facility]/pharmacy #0957, 154.9, cm, 05/28/19 11:40:00 EST, Height, 55.3, kg, 04/19/19 8:36:00 EST,Dry Weight Start Date: 05/28/19 Status: Ordered Problem List Condition Effective Dates Status Health Status Inform ant Age at leaving school - ged(Confirmed) Active ASCUS(Confirmed) Active Cheok-Wooten respiration: s ee 05/25/11 Sleep Report(Confirmed) 05/25/11 Active Hep C: Cleared without treatment(Confirmed) Active Clubbing(Confirmed) Active Drug abuse: Suboxone via [facility](Confirmed) Active Esophageal reflux (GERD)(Confirmed) 05/09/12 Active JASON (generalized anxiety disorder)(Confirmed) Active HPV: Positive in 07/15; neg i n 01/15, negative in 10/16(Confirmed) Active Hypertension(Confirmed) 08/23/10 Active Zachary Duran, [facility] [id number] active care coordination(Confirmed) Active Emphysema of lung: [...]
--- OUTSIDE RECORDS SUMMARY | 2022-12-26 10:38 | XMS_ITS | Continuity of Care Document ---
Author Name Unknown Organization [facility] Address [address] [place] [address]- Care Team Providers Care Nurse Advisor Name Role Phone Mavis Allen Primary Care Physician Encounter [facility] Date(s): 09/27/22 - 11/18/22 [facility] [address], [place] [address] Attending Physician: Micah Simpson MD Admitting Physician: Micah Simpson MD Referring Physician: Marcio Childers MD Allergies, Adverse Reactions, Alerts Substance Reaction Severity Status Zoloft O/E - Parkinsonian tremor Ac tive Rubber Active Other Environmental Allergy 1 Active 1ELASTIC Immunizations Given and Recorded Vaccine Date Status Refusal Reason [id number] 12y+ bivalent booster vax 05/11/22 Recorded influenza [...] vaccine, inactivated 04/23/08 Give n SARS-CoV-2 mRNA (vtcrnjh-fjhd-cwliy) vax 12/14/21 Given SARS-CoV-2 mRNA (sniifsg-jfiq-waqej) vax 5/10/22 Given SARS-CoV-2 (COVID-19) mRNA BNT-162b2 [...] 1 Refills, Maintenance, 11/18/22 15:43:00 EDT, Tablet, [facility]/pharmacy #0957, Partial fill upon patient request if the prescription is for a schedule II opioid drug., 154.94, cm, 11/18/22 15:19:00 EDT, H... Start Date: 11/18/22 Status: Ordered calcium-vitamin D 600 mg-400 intl units oral tablet 1 tablet, By Mouth, 2 times a day with meals, # 180 tablet, 0 Refills, Maintenance, 11/17/22 12:06:00 EDT, [facility] STORE 10161, 90, TAKE 1 TABLET BY MOUTH TWICE [...] Refills, Maintenance, 11/18/22 16:36:00 EDT, DIS Tablet, [facility]/pharmacy #0957, Partial fill upon patient [...] EACH USE., # 12 each, 11 Refills, [facility] ST[facility] 56592, 154.8, cm, 09/14/21 9:50:00 EDT, Height, 56, kg, 12/09/20 9:16:00 EDT, Dry Weight Start Date: 11/17/21 Status: Ordered fluticasone 50 mcg/inh nasal spray See Instructions, USE 1 SPRAY IN EACH NOSTRIL DAILY, # 48 mL, 11 Refills, [facility] STORE 87637, 90, USE 1 SPRAY IN EACH NOSTRIL DAILY, 154.8, cm, 09/14/21 9:50:00 EDT, Height, 56, kg, 12/09/20 9:16:00 EDT, Dry Weight Start Date: 11/15/21 Status: Ordered lisinopril 10 mg oral tablet 1, tablet, By Mouth, Daily, # 90 tablet, Refills 3, Route to Pharmacy Electronically, [facility] STORE 48345, 154.8, cm, 09/14/21 9:50:00 EDT, Height, 56, kg, 12/09/20 9:16:00 EDT, Dry Weight Start Date: 12/07/21 Status: Ordered melatonin 3 mg oral tablet 2 tablet = 6 mg, By Mouth, Daily at bedtime, PRN Insomnia, # 60 tablet, 2 Refills, Maintenance, 08/04/22 12:21:00 EDT, [facility]/pharmacy #0957, Partial fill upon patient request if the prescription is fora schedule II opioid drug., 154[place]ina, 06/22/22 15:01... Start Date: 08/04/22 Status: Ordered [...] 0 Refills, Maintenance, 08/01/22 14:52:00 EDT, ECCapsule, [facility]/pharmacy #0957, Partial fill upon patient request if the prescription is for a schedule II opioid drug., 154sabina, 06/22/22 15:01:00 EST, H... Start Date: 08/01/22 [...] Confirmed Active Papule of skin Confirmed Active *[id number] Tuckpointer Sandra Rob Confirmed Active Pelvic mass Confirmed [...] Team Personnel Name: Joyce Brice RN Position: [facility] Supv Member Role: Primary Care Nurse Name: Ryan Wilson RN Position: S RN Member Role: Primary Care Nurse Name: Mavis Allen Position: S PCO Associate Professional Member Role: PCP Address: Address: [address] [place] [address]. [address] [place] [address]- Name: Jf Allyn Position: S RN Member Role: Primary Care [...] Persons Name: JOSELIN SCHMIDT Address: home [address] [place] [address] Name: ALYSE HAUSER Address: home [address] [place] [address] Name: NO, ONE AT THIS TIME
--- OUTSIDE RECORDS SUMMARY | 2022-12-26 10:38 | XMS_ITS | Continuity of Care Document ---
Author Name Unknown Organization [facility] Address [address] [place] [address]- Care Team Providers Care Front Man Name Role Phone Divina MARINELLI, Adalberto Reeder Primary Care Physician Encounter [facility] Date(s): 01/28/21 - 02/27/[address] [address]- Allergies, Adverse Reactions, Alerts Substance Reaction Severity [...] 17:04:00 EDT, Aerosol, Route to Pharmacy Electronically, [id number]... Start Date: 08/03/20 Status: Ordered BiPAP Machine [...] 56 tablet, 3 Refills, Acute, [facility] 81987, 154.9, cm, 06/11/20 9:48:00 EST, Height, 58, kg, 06/05/20 12:02:00 EST, Dry Weight Start Date: 08/03/20 Status: Ordered clonazePAM 1 mg oral tablet 1 tablet = 1 mg, By Mouth, 3 times a day, PRN Anxiety, Please dispense on/after 03/08/21, # 60 tablet, 0 Refills, Maintenance, 02/22/21 15:35:00 EDT, Tablet, [facility]/pharmacy #0957, 154.8, cm, 12/09/20 9:16:00 EDT, Height, 56, kg, 12/09/20 9:16:00 EDT, Dry... Start Date: 02/22/21 Status: Ordered CPAP Equipment See Instructions, # 1 units, Refills 12, Tot. Refills 12, Maintenance, BIPAP supplies: Mask, tubing, filters, headgear, chin strap, water chamber 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) Lengthof need 99 months Please fax to [facility], [phone],... Start Date: 06/30/17 Status: Ordered CPAP Equipment See Instructions, # 1 each, Refills 12, Tot. Refills 12, Maintenance, BiPAP supplies: Mask, tubing,filters, headgear, chin strap, heated water chamber Dx: ELSA G47.33 Length of need 99 months Please fax to [facility] fax # [phone], 07/02/20 14:50:0... Start Date: 07/02/20 Status: Ordered Eucerin Unscented topical lotion See Instructions, apply to skin daily, dispense 1 jar, # 1 each, 11 Refills, Maintenance, 09/25/19 16:37:00 EDT, [facility]/pharmacy #0957, apply to skin daily, dispense [...] 11 Refills, Maintenance, 11/05/20 17:11:00 EDT, [facility]/pharmacy #0957, 1 sprays Nasal Daily, 154.9, cm, 10/13/20 7:56:00 EDT, Height, 58, kg, 06/05/20 12:02:00 EST, Dry Weight Start Date: 11/05/20 Status: Ordered Flovent HFA 220 mcg/inh inhalation aerosol See Instructions, TAKE 2 PUFFS BY MOUTH TWICE A DAY [place] AND THROAT AFTER EACH USE, # 12 Unknown, 11 Refills, Soft Stop, 11/05/20 17:11:00 EDT, [facility]/pharmacy #0957, 154.9, cm, 10/13/20 7:56:00 EDT, Height, 58, kg, 06/05/20 12:02:00 EST, Dry Weight Start Date: 11/05/20 Status: Ordered Inderal LA 80 mg oral capsule, extended release 80 mg, 1, capsule, By Mouth, Daily, # 30 capsule, Refills 3, Tot. Refills 3, Maintenance, 06/23/20 10:00:00 EST, Route to Pharmacy Electronically, [facility]/pharmacy #0957, To replace Topamax. Partial fillupon patient request if the prescription is for a... Start Date: 06/23/20 Status: Ordered lisinopril 10 mg oral tablet 10 mg, 1, tablet, By Mouth, Daily, # 90 tablet, Refills 3, Tot. Refills 3, Maintenance, 09/28/20 13:15:00 EDT, Route to Pharmacy Electronically, [facility]/pharmacy #0957, 154.9, cm, 09/22/20 10:26:00 EDT, Height, 58, kg, 06/05/20 12:02:00 EST, Dry Weight Start Date: 09/28/20 Stop Date: 09/23/21 Status: Ordered nicotine 2 mg oral transmucosal lozenge 1 lozenge = 2 mg, By Mouth, Every 2 hours, # 72 each, 11 Refills, Maintenance, 10/13/20 8:35:00 EDT, [facility]/pharmacy #0957, Partial fill upon patient request [...] Refills, Maintenance, 11/05/20 17:11:00 EDT, Aerosol, [facility]/pharmacy #0957, 154.9, cm, 10/13/20 7:56:00 EDT, [...] 11 Refills, Maintenance, 11/12/20 9:46:00 EDT, Aerosol, [facility]/pharmacy #0957, Partial fill upon patient request [...] Drug abuse: Suboxone via [facility](Confirmed) Active Esophageal reflux (GERD)(Confirmed) 05/09/12 [...]
--- OUTSIDE RECORDS SUMMARY | 2022-12-26 10:38 | XMS_ITS | Continuity of Care Document ---
Author Name Unknown Organization [facility] Address [address] [place] [address]- Care Team Providers Care Manager State Name Role Phone Gideon Nice INTERVENTION SPECIALIST, Jennyfer Primary Care Physician [facility] Date[facility]s): 04/27/22 - 06/02/[address] [address]- Attending Physician: Not on Staff, Attending MD [...] vaccine, inactivated 04/23/08 Give n SARS-CoV-2 mRNA (rbvmshm-tter-uzqqo) vax 12/14/21 Given SARS-CoV-2 mRNA (jdrffgm-wato-bvemh) vax 09/14/21 Given SARS-CoV-2 (COVID-19) mRNA BNT-162b2 [...] Refills, Maintenance, 05/26/22 19:48:00 EST, [facility], 154.8, cm, 05/25/22 13:21:00 EST, Height, 56, [...] with meals, # 180 tablet, 1 Refills, [facility] STORE [facility]1754, 90, TAKE 1 TABLET BY MOUTH TWICE [...] tablet, 0 Refills, Maintenance, 05/12/22 8:22:00 EST, [facility]/pharmacy #0957, Partial fill upon patient request if the prescription is for a schedule II opioid drug., 1... Start Date: 05/12/22 Status: Ordered CPAP Equipment See Instructions, # 1 units, Refills 12, Tot. Refills 12, Maintenance, BIPAP supplies: Mask, tubing, filters, headgear, chin strap, water chamber 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) Lengthof need 99 months Please fax to [facility], [phone],... Start Date: 06/30/17 Status: Ordered CPAP Equipment See Instructions, # 1 each, Refills 12, Tot. Refills 12, Maintenance, BiPAP supplies: Mask, tubing,filters, headgear, chin strap, heated water chamber Dx: ELSA G47.33 Length of need 99 months Please fax to [facility] fax # [phone], 07/02/20 14:50:0... Start Date: 07/02/20 Status: Ordered cyanocobalamin 500 mcg oral tablet 1 tablet = 500 mcg, By Mouth, Daily, on empty stomach, # 90 tablet, 3 Refills, Maintenance, 03/26/21 20:06:00 EST, Tablet, [facility]/pharmacy #0957, Partial fill upon patient request if the prescription isfor a schedule II opioid drug., 154.8, cm, 03/23/21... Start Date: 03/26/21 Status: Ordered Eucerin Plus topical lotion 1 application, Topically, 2 times a day, PRN for dry skin, # 600 mL, 11 Refills, Maintenance, 05/13/22 9:53:00 EST, Lotion, [facility]/pharmacy #0957, Partial fill upon patient request if the prescription is for a schedule II opioid drug., 1 application Topi... Start Date: 05/13/22 Status: Ordered Eucerin Unscented topical lotion See Instructions, apply to skin daily, dispense 1 jar, # 1 each, 11 Refills, Maintenance, 09/25/19 16:37:00 EDT, [facility]/pharmacy #0957, apply to skin daily, [...] EACH USE., # 12 each, 11 Refills, [facility] 54115, 154.8, cm, 09/14/21 9:50:00 EDT, Height, 56, kg, 12/09/20 9:16:00 EDT, Dry Weight Start Date: 11/17/21 Status: Ordered fluticasone 50 mcg/inh nasal spray See Instructions, USE 1 SPRAY IN EACH NOSTRIL DAILY, # 48 mL, 11 Refills, [facility]ORE 66801, 90, USE 1 SPRAY IN EACH NOSTRIL DAILY, 154.8, cm, 09/14/21 9:50:00 EDT, Height, 56, kg, 12/09/20 9:16:00 EDT, Dry Weight Start Date: 11/15/21 Status: Ordered Inderal LA 80 mg oral capsule, extended release 80 mg, 1, capsule, By Mouth, Daily, # 30 capsule, Refills 3, Tot. Refills 3, Maintenance, 06/23/20 10:00:00 EST, Route to Pharmacy Electronically, [facility]/pharmacy #0957, To replace Topamax. Partial fillupon patient request if the prescription is for a... Start Date: 06/23/20 Status: Ordered lisinopril 10 mg oral tablet 1, tablet, By Mouth, Daily, # 90 tablet, Refills 3, Route to Pharmacy Electronically, [facility] STORE 85272, 154.8, cm, 09/14/21 9:50:00 EDT, Height, 56, kg, 12/09/20 9:16:00 EDT, Dry Weight Start Date: 12/07/21 Status: Ordered melatonin 3 mg oral tablet 2 tablet = 6 mg, By Mouth, Daily at bedtime, PRN Insomnia, # 60 tablet, 2 Refills, Maintenance, 04/13/22 16:50:00 EST, [facility]/pharmacy #0957, Partial fill upon patient request if the prescription is fora schedule II opioid drug., 154.8, cm, 01/25/22 14:... Start Date: 04/13/22 Status: Ordered nicotine 2 mg oral transmucosal lozenge 1 lozenge = 2 mg, By Mouth, Every 2 hours, # 72 each, 11 Refills, Maintenance, 10/13/20 8:35:00 EDT, [facility]/pharmacy #0957, Partial fill upon patient [...] cm, 03/19/19 10:34:58 EST, Height Start Date: 12/6/19 Status: Ordered Nutritional Supplements See Instructions, # 90 each, Refills 3, Tot. Refills 3, Maintenance, [place] Ensure 1 can TID. Dx: C34.90, R63.4, 03/29/21 15:29:00 EST, Supply Start Date: 03/29/21 Status: Ordered omeprazole 20 mg oral enteric coated capsule 1 capsule = 20 mg, By Mouth, Daily, # 90 capsule, 3 Refills, Maintenance, 07/08/21 15:23:00 EST, ECCapsule, [facility]/pharmacy #0957, Partial fill upon patient request if the prescription is for a schedule II opioid drug., 154.8, cm, 06/29/21 9:00:00 EST,... Start Date: 07/08/21 Status: Ordered Stiolto Respimat 60 ACT 2.5 mcg-2.5 mcg/inh inhalation aerosol 2 puffs, Inhalation, Every 24 hours, TO REPLACE TIOTROPIUM., # 4 mL, 11 Refills, [facility], 154.8, cm, 09/14/21 9:50:00 EDT, Height, 56, kg, 12/09/20 9:16:00 EDT, Dry Weight Start Date: 11/17/21 Status: Ordered Ventolin HFA 108 mcg/inh inhalation aerosol with adapter 2 puffs, Inhalation, 4 times a day, PRN NEEDED FOR WHEEZING, # 18 each, 5 Refills, [facility], 154.8, cm, 09/14/21 9:50:00 EDT, Height, 56, [...] right hand Confirmed Active Palpitations Confirmed Active *[id number] paige Escamilla Confirmed Active Pelvic mass Confirmed [...] Team Personnel Name: Jennyfer Stokes NP Position: [facility] Associate Professional Member Role: PCP Address: Address: [address] [place] [address]- Care Team Related Persons Name: JOSELIN SCHMIDT Address: home [address] [place] [address] Name: ALYSE HAUSER Address: home [address] [place] [id number] Name: NO, ONE AT THIS TIME
--- OUTSIDE RECORDS SUMMARY | 2022-12-26 10:38 | XMS_ITS | Continuity of Care Document ---
Author Name Unknown Organization [facility] Address [address] [place] [address]- Care Team Providers Care Parasitologist Name Role Phone Adalberto Murcia MD Primary Care Physician [facility]counter [facility] Date(s): 04/23/19 - 06/13/[address] [address]- [facility] Attending Physician: Adalberto Murcia MD Admitting [...] 11 Refills, Maintenance, 05/28/19 12:01:00 EST, Tablet, [facility]/pharmacy #0957, 1 tablet By Mouth 2 times [...] 03/19/19 10:53:39 EST, Route to Pharmacy Electronically, [id number], [facility]/pharmacy #1026 Start Date: 03/19/19 Status: Ordered cetirizine 10 mg oral tablet 1 tablet = 10 mg, By Mouth, Daily, PRN Other, PRN allergies, # 30 tablet, 11 Refills, Maintenance, 05/28/19 12:01:00 EST, Tablet, [facility]/pharmacy #0957, 154.9, cm, 05/28/19 11:40:00 EST, Height, [...] 3 times a day, Please fax to [facility] on [address] [phone], # 90 tablet, 2 Refills, Maintenance, 09/17/18 12:46:43 EDT, Tablet Start Date: 09/17/18 Status: Ordered CPAP Equipment See Instructions, # 1 units, Refills 12, Tot. Refills 12, Maintenance, BiPAP supplies: Mask, tubing, filters, headgear, chin strap, heated water chamber Dx: ELSA G47.33 Length of need 99 months Pleasefax to [facility], [phone], 09/04/18 15:13:48 EDT, Co... Start Date: 09/04/18 Status: Ordered CPAP Equipment See Instructions, # 1 units, Refills 12, Tot. Refills 12, Maintenance, BIPAP supplies: Mask, tubing, filters, headgear, chin strap, water chamber Dx: Cheko león respiration, severe (786.04) Lengthof need 99 months Please fax to [facility], [phone],... Start Date: 06/30/17 Status: Ordered diphenhydrAMINE 25 [...] Gm, 11 Refills, Maintenance, 05/28/19 12:01:00 EST, [facility]/pharmacy #0957, 1 sprays Nasal Daily, 154.9, cm, 05/28/19 11:40:00 EST, Height, 55.3, kg, 04/19/19 8:36:00 EST, Dry Weight Start Date: 05/28/19 Status: Ordered Flovent HFA 220 mcg/inh inhalation aerosol See Instructions, # 12 Unknown, Refills 11 Tot. Refills 11, TAKE 2 PUFFS BY MOUTH TWICE A DAY [place] AND THROAT AFTER EACH USE, [facility]/pharmacy #1026 Start Date: 03/15/19 Status: Ordered ibuprofen 600 mg oral tablet 600 mg, 1, tablet, By Mouth, 3 times a day, PRN, with food, # 270 tablet, Refills 11, Tot. Refills 11, Maintenance, as needed for pain, 06/27/17 17:45:19, Route to Pharmacy Electronically, [id number], [facility]/pharmacy #1026 Start Date: 06/27/17 Status: Ordered lisinopril 10 mg oral tablet 10 mg, 1, tablet, By Mouth, Daily, # 30 tablet, Refills 11, Tot. Refills 11, Maintenance, 05/28/19 12:01:00 EST, Route to Pharmacy Electronically, [facility]/pharmacy #0957, 154.9, cm, 05/28/19 11:40:00 EST, Height, [...] 05/28/19 12:01:00 EST, Route to Pharmacy Electronically, [id number], [facility]/pharmacy #0957, 154.9, cm, 05/28/19 11:40:00 EST, Height,... [...] Clubbing(Confirmed) Active Drug [facility]: [facility]) Active Esophageal reflux (GERD)(Confirmed) 05/09/12 [...]
--- OUTSIDE RECORDS SUMMARY | 2022-12-26 10:38 | XMS_ITS | Continuity of Care Document ---
Author Name Unknown Organization [facility] Address [address] [place] [address]- Care Team Providers Care Coal Washer Tender Name Role Phone Divina MARINELLI, Adalberto Reeder Primary Care Physician [facility]counter [facility] Date(s): 11/11/20 - 12/11/[address] [address]- Allergies, Adverse Reactions, Alerts Substance Reaction Severity [...] 17:04:00 EDT, Aerosol, Route to Pharmacy Electronically, [id number]... Start Date: 08/03/20 Status: Ordered BiPAP Machine [...] 56 tablet, 3 Refills, Acute, [facility], 154.9, cm, 06/11/20 9:48:00 EST, Height, 58, kg, 06/05/20 12:02:00 EST, Dry Weight Start Date: 08/03/20 Status: Ordered clonazePAM 1 mg oral tablet 1 tablet = 1 mg, By Mouth, 3 times a day, PRN Anxiety, Please dispense on/after 12/07/20, # 70 tablet, 0 Refills, Maintenance, 12/04/20 11:21:00 EDT, Tablet, [facility]/pharmacy #0957, 154.9, cm, 10/13/20 7:56:00 EDT, Height, 58, kg, 06/05/20 12:02:00 EST, Dry... Start Date: 12/04/20 Status: Ordered CPAP Equipment See Instructions, # 1 units, Refills 12, Tot. Refills 12, Maintenance, BIPAP supplies: Mask, tubing, filters, headgear, chin strap, water chamber 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) Lengthof need 99 months Please fax to [facility], [phone],... Start Date: 06/30/17 Status: Ordered CPAP Equipment See Instructions, # 1 each, Refills 12, Tot. Refills 12, Maintenance, BiPAP supplies: Mask, tubing,filters, headgear, chin strap, heated water chamber Dx: ELSA G47.33 Length of need 99 months Please fax to [facility] fax # [phone], 07/02/20 14:50:0... Start Date: 07/02/20 Status: Ordered Eucerin Unscented topical lotion See Instructions, apply to skin daily, dispense 1 jar, # 1 each, 11 Refills, Maintenance, 09/25/19 16:37:00 EDT, [facility]/pharmacy #0957, apply to skin daily, dispense [...] Gm, 11 Refills, Maintenance, 11/05/20 17:11:00 EDT, [facility]/pharmacy #0957, 1 sprays Nasal Daily, 154.9, cm, 10/13/20 7:56:00 EDT, Height, 58, kg, 06/05/20 12:02:00 EST, Dry Weight Start Date: 11/05/20 Status: Ordered Flovent HFA 220 mcg/inh inhalation aerosol See Instructions, TAKE 2 PUFFS BY MOUTH TWICE A DAY [place] AND THROAT AFTER EACH USE, # 12 Unknown, 11 Refills, Soft Stop, 11/05/20 17:11:00 EDT, [facility]/pharmacy #0957, 154.9, cm, 10/13/20 7:56:00 EDT, [...] 11 Refills, Maintenance, 11/05/20 17:11:00 EDT, Aerosol, [facility]/pharmacy #0957, 154.9, cm, 10/13/20 7:56:00 EDT, [...] Active Drug abuse: Suboxone via [facility](Confirmed) Active Esophageal reflux (GERD)(Confirmed) 05/09/12 Active [...]
--- OUTSIDE RECORDS SUMMARY | 2022-12-26 10:38 | XMS_ITS | Continuity of Care Document ---
Author Name Unknown Organization [facility] Address [address] [place] [address]- Care Team Providers Care Correctional Corporal Name Role Phone dAalberto Murcia MD Primary Care Physician Encounter [facility] Date(s): 04/20/21 - 05/26/21 [facility] [address], [place] [address] Attending Physician: Marie Muir [...] 17:04:00 EDT, Aerosol, Route to Pharmacy Electronically, [id number]... Start Date: 08/03/20 Status: Ordered BiPAP Machine [...] 56 tablet, 3 Refills, Acute, [facility], 154.9, cm, 06/11/20 9:48:00 EST, Height, 58, kg, 06/05/20 12:02:00 EST, Dry Weight Start Date: 08/03/20 Status: Ordered clonazePAM 1 mg oral tablet 1 tablet = 1 mg, By Mouth, 2 times a day, PRN Anxiety, Please dispense on/after 05/08/21, # 60 tablet, 0 Refills, Maintenance, 04/20/21 13:33:00 EST, Tablet, [facility]/pharmacy #0957, 154.8, cm, 04/20/21 13:17:00 EST, Height, 56, kg, 12/09/20 9:16:00 EDT, Dry... Start Date: 04/20/21 Status: Ordered CPAP Equipment See Instructions, # 1 units, Refills 12, Tot. Refills 12, Maintenance, BIPAP supplies: Mask, tubing, filters, headgear, chin strap, water chamber 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) Lengthof need 99 months Please fax to [facility] [phone],... Start Date: 06/30/17 Status: Ordered CPAP Equipment See Instructions, # 1 each, Refills 12, Tot. Refills 12, Maintenance, BiPAP supplies: Mask, tubing,filters, headgear, chin strap, heated water chamber Dx: ELSA G47.33 Length of need 99 months Please fax to [facility] fax # [phone], 07/02/20 14:50:0... Start Date: 07/02/20 Status: Ordered [...] each, Refills 3, Tot. Refills 3, Maintenance, [place] Ensure 1 can TID. Dx: C34.90, R63.4, [...] Active Clubbing(Confirmed) Active Drug abuse: Suboxone via [facility](Confirmed) Active Esophageal reflux (GERD)(Confirmed) 05/09/12 [...]
--- OUTSIDE RECORDS SUMMARY | 2022-12-26 10:38 | XMS_ITS | Continuity of Care Document ---
Author Name Unknown Organization [facility] Address [address] [place] [address]- Care Team Providers Care Automobile Relocation Engineer Name Role Phone Divina MARINELLI, Adalberto Reeder Primary Care Physician [facility]counter [facility] Date(s): 03/25/21 - 04/24/[address] [address]- Allergies, Adverse Reactions, Alerts Substance Reaction Severity [...] 17:04:00 EDT, Aerosol, Route to Pharmacy Electronically, [id number]... Start Date: 08/03/20 Status: Ordered BiPAP Machine [...] 11 Refills, Maintenance, 11/05/20 17:11:00 EDT, Tablet, [facility]/pharmacy #0957, 1 tablet By Mouth 2 [...] 56 tablet, 3 Refills, Acute, [facility], 154.9, cm, 06/11/20 9:48:00 EST, Height, 58, kg, 06/05/20 12:02:00 EST, Dry Weight Start Date: 08/03/20 Status: Ordered clonazePAM 1 mg oral tablet 1 tablet = 1 mg, By Mouth, 2 times a day, PRN Anxiety, Please dispense on/after 05/08/21, # 60 tablet, 0 Refills, Maintenance, 04/20/21 13:33:00 EST, Tablet, [facility]/pharmacy #0957, 154.8, cm, 04/20/21 13:17:00 EST, Height, 56, kg, 12/09/20 9:16:00 EDT, Dry... Start Date: 04/20/21 Status: Ordered CPAP Equipment See Instructions, # 1 units, Refills 12, Tot. Refills 12, Maintenance, BIPAP supplies: Mask, tubing, filters, headgear, chin strap, water chamber 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) Lengthof need 99 months Please fax to [facility], [phone],... Start Date: 06/30/17 Status: Ordered CPAP Equipment See Instructions, # 1 each, Refills 12, Tot. Refills 12, Maintenance, BiPAP supplies: Mask, tubing,filters, headgear, chin strap, heated water chamber Dx: ELSA G47.33 Length of need 99 months Please fax to [facility] fax # [phone], 07/02/20 14:50:0... Start Date: 07/02/20 Status: Ordered [...] 10:00:00 EST, Route to Pharmacy Electronically, [facility]/pharmacy #0957, To replace Topamax. Partial fillupon patient request if the prescription is for a... Start Date: 06/23/20 Status: Ordered lisinopril 10 mg oral tablet 10 mg, 1, tablet, By Mouth, Daily, # 90 tablet, Refills 3, Tot. Refills 3, Maintenance, 09/28/20 13:15:00 EDT, Route to Pharmacy Electronically, [facility]/pharmacy #0957, 154.9, cm, 09/22/20 10:26:00 EDT, Height, 58, kg, 06/05/20 12:02:00 EST, Dry Weight Start Date: 09/28/20 Stop Date: 09/23/21 Status: Ordered melatonin 3 mg oral tablet 1 tablet = 3 mg, By Mouth, Daily at bedtime, PRN Insomnia, # 60 tablet, 11 Refills, Maintenance, 03/29/21 21:06:00 EST, [facility]/pharmacy #0957, Partial fill upon patient request [...] Refills 3, Tot. Refills 3, Maintenance, [place] Ensure 1 can TID. Dx: C34.90, R63.4, 03/29/21 15:29:00 EST, Supply Start Date: 03/29/21 Status: Ordered Stiolto Respimat 60 ACT 2.5 mcg-2.5 mcg/inh inhalation aerosol 2 puffs, Inhalation, Every 24 hours, to replace tiotropium, # 4 Gm, 11 Refills, Maintenance, 11/05/20 17:11:00 EDT, Aerosol, [facility]/pharmacy #0957, 154.9, cm, 10/13/20 7:56:00 EDT, [...] Active Clubbing(Confirmed) Active Drug abuse: Suboxone via [facility](Confirmed) Active Esophageal reflux (GERD)(Confirmed) [...]
--- OUTSIDE RECORDS SUMMARY | 2022-12-26 10:38 | XMS_ITS | Continuity of Care Document ---
Author Name Unknown Organization [facility] Address [address] [place] [address]- Care Team Providers Care Tonal Regulator Name Role Phone Gideon Nice INSPECTOR TYPE, Jennyfer Primary Care Physician [facility] Date(s): 03/25/22 - 04/24/[address] [address]- Allergies, Adverse Reactions, Alerts Substance Reaction Severity [...] vaccine, inactivated 04/23/08 Give n SARS-CoV-2 mRNA (gnndrxt-nraq-lvvfc) vax 12/14/21 Given SARS-CoV-2 mRNA (diuvrrq-mjqz-iosir) vax 09/14/21 Given SARS-CoV-2 (COVID-19) mRNA BNT-162b2 [...] Given Tet/Diphth/Acel, Pertussis (oldterm) 5 02/20/12 Gi precoius pneumococcal 23-valent vaccine 6 02/16/11 Given Influenza [...] 3 Refills, Maintenance, 09/14/21 10:11:00 EDT,[facility], [facility], Partial fill upon patient request if the [...] with meals, # 180 tablet, 1 Refills, [facility] ST[facility] 22348, 90, TAKE 1 TABLET BY MOUTH TWICE [...] tablet, 0 Refills, Maintenance, 03/28/22 4:50:00 EST, [facility]/pharmacy #0968, Partial fill upon patient request if the prescription is for a schedule II opioid drug., 1... Start Date: 03/28/22 Status: Ordered CPAP Equipment See Instructions, # 1 units, Refills 12, Tot. Refills 12, Maintenance, BIPAP supplies: Mask, tubing, filters, headgear, chin strap, water chamber 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) Lengthof need 99 months Please fax to [facility], [phone],... Start Date: 06/30/17 Status: Ordered CPAP Equipment See Instructions, # 1 each, Refills 12, Tot. Refills 12, Maintenance, BiPAP supplies: Mask, tubing,filters, headgear, chin strap, heated water chamber Dx: ELSA G47.33 Length of need 99 months Please fax to [facility] fax # [phone], 07/02/20 14:50:0... Start Date: 07/02/20 Status: Ordered cyanocobalamin 500 mcg oral tablet 1 tablet = 500 mcg, By Mouth, Daily, on empty stomach, # 90 tablet, 3 Refills, Maintenance, 03/26/21 20:06:00 EST, Tablet, [facility]/pharmacy #0957, Partial fill upon [...] EACH USE., # 12 each, 11 Refills, [facility] STORE 99483, 154.8, cm, 09/14/21 9:50:00 EDT, Height, 56, kg, 12/09/20 9:16:00 EDT, Dry Weight Start Date: 11/17/21 Status: Ordered fluticasone 50 mcg/inh nasal spray See Instructions, USE 1 SPRAY IN EACH NOSTRIL DAILY, # 48 mL, 11 Refills, [facility] 33616, 90, USE 1 SPRAY IN EACH NOSTRIL [...] tablet, Refills 3, Route to Pharmacy Electronically, [facility] STORE 79981, 154.8, cm, 09/14/21 9:50:00 EDT, Height, 56, kg, 12/09/20 9:16:00 EDT, Dry Weight Start Date: 12/07/21 Status: Ordered melatonin 3 mg oral tablet 2 tablet = 6 mg, By Mouth, Daily at bedtime, PRN Insomnia, # 60 tablet, 2 Refills, Maintenance, 04/13/22 16:50:00 EST, [facility]/pharmacy #0957, Partial fill upon [...] each, Refills 3, Tot. Refills 3, Maintenance, [place] Ensure 1 can TID. Dx: C34.90, R63.4, [...] # 4 mL, 11 Refills, [facility], 154.8, cm, 09/14/21 9:50:00 EDT, Height, 56, kg, 12/09/20 9:16:00 EDT, Dry Weight Start Date: 11/17/21 Status: Ordered Ventolin HFA 108 mcg/inh inhalation aerosol with adapter 2 puffs, Inhalation, 4 times a day, PRN NEEDED FOR WHEEZING, # 18 each, 5 Refills, [facility], 154.8, cm, 09/14/21 9:50:00 EDT, Height, 56, [...] Clubbing Confirmed Active Drug abuse: Suboxone via [facility] Confirmed Active Esophageal reflux (GERD) Confirmed 05/09/12 Active JASON (generalized anxiety disorder) Confirmed Active HPV: Positive in 07/15; 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, negative in 10/16 Confirmed Active Hypertension Confirmed 08/23/10 Active Lung cancer Confirmed Active Lung nodules Confirmed Active Opioid use disorder Confirmed Active Osteoporosis Confirmed Active Pain in finger of right hand Confirmed Active *[id number] paige Escamilla Confirmed Active Pelvic mass Confirmed [...] Team Personnel Name: Jennyfer Stokes NP Position: [facility] Associate Professional Member Role: PCP Address: Address: [address] [place] [address]- [place] Care Team Related Persons Name: JOSELIN SCHMIDT Address: home [address] [place] [address] Name: ALYSE HAUSER Address: home [address] [place] [id number] Name: NO, ONE AT THIS TIME
--- OUTSIDE RECORDS SUMMARY | 2022-12-26 10:38 | XMS_ITS | Continuity of Care Document ---
Author Name Unknown Organization [facility] Thoracic [facility] Address [address] [place] [address], [address] [place] [address]- Care Team Providers Care Tipple Supervisor Name Role Phone Divina MARINELLI, Adalberto Reeder Primary Care Physician Encounter [facility] Date(s): 05/06/20 - 06/05/20 [facility] Thoracic Surgery [address] [place] [address], [address] [place], [place] [address] Allergies, Adverse Reactions, Alerts Substance Reaction Severity [...] = 0.5 mg, By Mouth, Once, scallop cutter to procedure. May repeat X 1, # [...] 3 Refills, Maintenance, 02/18/20 9:41:00 EDT, Tablet, [facility]/pharmacy #0957, 154.9, cm, 12/30/19 11:15:00 EDT, Height, 55.3, kg, 04/19/19 8:36... Start Date: 02/18/20 Status: Ordered clonazePAM 1 mg oral tablet 1 tablet = 1 mg, By Mouth, 3 times a day, Please fax to [facility] on [address] [phone], # 90 tablet, 2 Refills, Maintenance, 09/17/18 12:46:43 EDT, Tablet Start Date: 09/17/18 Status: Ordered CPAP Equipment See Instructions, # 1 units, Refills 12, Tot. Refills 12, Maintenance, BiPAP supplies: Mask, tubing, filters, headgear, chin strap, heated water chamber Dx: ELSA G47.33 Length of need 99 months Pleasefax to [facility], [phone], 09/04/18 15:13:48 EDT, Co... Start Date: 09/04/18 Status: Ordered CPAP Equipment See Instructions, # 1 units, Refills 12, Tot. 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 Start Date: 06/30/17 Status: Ordered Eucerin Unscented topical lotion See Instructions, apply to skin daily, dispense 1 jar, # 1 each, 11 Refills, Maintenance, 09/25/19 16:37:00 EDT, [facility]/pharmacy #0957, apply to skin daily, [...] Gm, 11 Refills, Maintenance, 02/18/20 9:43:00 EDT, [facility]/pharmacy #0957,1 sprays Nasal Daily, 154.9, cm, 12/30/19 11:15:00 EDT, Height, 55.3, kg, 04/19/19 8:36:00 EST, DryWeight Start Date: 02/18/20 Status: Ordered Flovent HFA 220 mcg/inh inhalation aerosol See Instructions, TAKE 2 PUFFS BY MOUTH TWICE A DAY RINSE MOUTH AND THROAT AFTER EACH USE, # 12 Unknown, 11 Refills, Soft Stop, 02/18/20 9:42:00 EDT, [facility]/pharmacy #0957, 154.9, cm, 12/30/19 11:15:00 EDT, Height, 55.3, kg, 04/19/19 8:36:00 EST, Dry Weight Start Date: 02/18/20 Status: Ordered lisinopril 10 mg oral tablet 10 mg, 1, tablet, By Mouth, Daily, # 30 tablet, Refills 11, Tot. Refills 11, Maintenance, 02/18/20 9:43:00 EDT, Route to Pharmacy Electronically, [facility]/pharmacy #0957, 154.9, cm, 12/30/19 11:15:00 [...] 04/20/20 13:51:00 EST, Route to Pharmacy Electronically, [id number], [facility]/pharmacy #0957, 154.9, cm, 12/30/19 11:15:00 EDT, Height,... Start Date: 04/20/20 Stop Date: 04/15/21 Status: Ordered Stiolto Respimat 60 ACT 2.5 mcg-2.5 mcg/inh inhalation aerosol 2 puffs, Inhalation, Every 24 hours, to replace tiotropium, # 4 Gm, 11 Refills, Maintenance, 02/18/20 9:43:00 EDT, Aerosol, [facility]/pharmacy #0957, 154.9, cm, 12/30/19 11:15:00 [...] 3 Refills, Maintenance, 03/16/20 16:51:00 EST, Tablet, [facility]/pharmacy #0957, 154.9, cm, 12/30/19 11:15:00 EDT, Height, 55.3, kg, 04/19/19 8:36:00 EST, Dry Weight Start Date: 03/16/20 Stop Date: 03/11/21 Status: Ordered topiramate 25 mg oral capsule 1 capsule = 25 mg, By Mouth, Daily, take with AM topiramate 50 mg for total 75 mg QAM and 50 mg QPM, # 90 capsule, 1 Refills, Maintenance, 04/29/20 11:47:00 EST, Capsule, [facility]/pharmacy #0957, Partial fill upon patient request, 154.9, [...] Clubbing(Confirmed) Active Drug [facility]: [facility]) Active Esophageal reflux (GERD)(Confirmed) 05/09/12 [...]
--- OUTSIDE RECORDS SUMMARY | 2022-12-26 10:39 | XMS_ITS | Continuity of Care Document ---
Author Name Unknown Organization [facility] C ancer Care Address [address] [place] [address]- Care Team Providers Care Bow String Maker Name Role Phone Mavis Allen Primary Care Physician [place] [facility] [place](s): 11/07/22 - 12/07/22 [facility] [address] [place] [address]- Attending Physician: Angelina Mendoza Admitting Physician: Angelina Mendoza Referring Physician: Angelina Mendoza Allergies, Adverse Reactions, Alerts Substance Reaction Severity Status Zoloft O/E - Parkinsonian tremor Ac tive Rubber Active Other Environmental Allergy 1 Active 1ELASTIC Immunizations Given and Recorded Vaccine Date Status Refusal Reason [id number] 12y+ bivalent booster vax 05/11/22 Recorded influenza [...] vaccine, inactivated 04/23/08 Give n SARS-CoV-2 mRNA ([id number]) vax 12/14/21 Given SARS-CoV-2 mRNA ([id number]-[id number]-[id number]) vax 09/14/21 Given SARS-CoV-2 (COVID-19) mRNA BNT-162b2 [...] 1 Refills, Maintenance, 11/18/22 15:43:00 EDT, Tablet, [facility]/pharmacy #0957, Partial fill upon patient request if the prescription is for a schedule II opioid drug., 154.94, cm, 11/18/22 15:19:00 EDT, H... Start Date: 11/18/22 Status: Ordered calcium-vitamin D 600 mg-400 intl units oral tablet 1 tablet, By Mouth, 2 times a day with meals, # 180 tablet, 0 Refills, Maintenance, 11/17/22 12:06:00 EDT, [facility], 90, TAKE 1 TABLET BY MOUTH TWICE [...] Refills, Maintenance, 11/18/22 16:36:00 EDT, DIS Tablet, [facility]/pharmacy #0957, Partial fill upon patient [...] EACH USE., # 12 each, 11 Refills, [facility], 154.8, cm, 09/14/21 9:50:00 EDT, Height, 56, kg, 12/09/20 9:16:00 EDT, Dry Weight Start Date: 11/17/21 Status: Ordered fluticasone 50 mcg/inh nasal spray See Instructions, USE 1 SPRAY IN EACH NOSTRIL DAILY, # 48 mL, 11 Refills, [id number], 90, USE 1 SPRAY IN EACH NOSTRIL DAILY, 154.8, cm, 09/14/21 9:50:00 EDT, Height, 56, kg, 12/09/20 9:16:00 EDT, Dry Weight Start Date: 11/15/21 Status: Ordered lisinopril 10 mg oral tablet 1, tablet, By Mouth, Daily, # 90 tablet, Refills 3, Route to Pharmacy Electronically, [facility] [address], 154.8, cm, 09/14/21 9:50:00 EDT, Height, 56, kg, 12/09/20 9:16:00 EDT, Dry Weight Start Date: 12/07/21 Status: Ordered melatonin 3 mg oral tablet 2 tablet = 6 mg, By Mouth, Daily at bedtime, PRN Insomnia, # 60 tablet, 2 Refills, Maintenance, 08/04/22 12:21:00 EDT, [facility]/pharmacy #0957, Partial fill upon patient [...] 0 Refills, Maintenance, 08/01/22 14:52:00 EDT, ECCapsule, [facility]/pharmacy #0957, Partial fill upon patient [...] Confirmed Active Papule of skin Confirmed Active [phone] Canopy Stringer Sandra Rob Confirmed Active Pelvic mass Confirmed [...] Team Personnel Name: Joyce Brice RN Position: [facility] RN Supv Member Role: Primary Care Nurse Name: Ryan Wilson RN Position: S RN Member Role: Primary Care Nurse Name: Mavis Allen Position: [facility] PCO Associate Professional Member Role: PCP Address: Address: [address] [facility] [place] [address]- Name: Jf Allyn Position: S RN Member [...] Persons Name: JOSELIN SCHMIDT Address: home [address] [place] [address] Name: ALYSE HAUSER Address: [address] [place] [address] Name: NO, ONE AT THIS TIME
--- OUTSIDE RECORDS SUMMARY | 2022-12-26 10:39 | XMS_ITS | Continuity of Care Document ---
Author Name Unknown Organization [facility] Address [address] [place] [address], [address] [place] [address]- Care Team Providers Care Rn Hyperbaric Name Role Phone Divina MARINELLI, Adalberto Reeder Primary Care Physician Encounter [facility] Date(s): 06/08/20 - 07/08/20 [facility] Thoracic Surgery [address] [place] [address], [address] [place], [place] [address] Allergies, Adverse Reactions, Alerts Substance [...] Refills, Maintenance, 02/18/20 9:41:00 EDT, Tablet, [facility]/pharmacy #0957, 154.9, cm, 12/30/19 11:15:00 EDT, Height, 55.3, kg, 04/19/19 8:36... Start Date: 02/18/20 Status: Ordered clonazePAM 1 mg oral tablet 1 tablet = 1 mg, By Mouth, 3 times a day, Please fax to [facility] on [address] [phone], # 90 tablet, 2 Refills, Maintenance, 09/17/18 12:46:43 EDT, Tablet Start Date: 09/17/18 Status: Ordered CPAP Equipment See Instructions, # 1 units, Refills 12, Tot. 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 Start Date: 06/30/17 Status: Ordered CPAP Equipment See Instructions, # 1 each, Refills 12, Tot. Refills 12, Maintenance, BiPAP supplies: Mask, tubing,filters, headgear, chin strap, heated water chamber Dx: ELSA G47.33 Length of need 99 months Please fax to [facility] fax # [phone], 07/02/20 14:50:0... Start Date: 07/02/20 Status: Ordered Eucerin Unscented topical lotion See Instructions, apply to skin daily, dispense 1 jar, # 1 each, 11 Refills, Maintenance, 09/25/19 16:37:00 EDT, [facility]/pharmacy #0957, apply to skin daily, dispense [...] 11 Refills, Maintenance, 02/18/20 9:43:00 EDT, [facility]/pharmacy #0957,1 sprays Nasal Daily, 154.9, cm, 12/30/19 11:15:00 EDT, Height, 55.3, kg, 04/19/19 8:36:00 EST, DryWeight Start Date: 02/18/20 Status: Ordered Flovent HFA 220 mcg/inh inhalation aerosol See Instructions, TAKE 2 PUFFS BY MOUTH TWICE A DAY RINSE MOUTH AND THROAT AFTER EACH USE, # 12 Unknown, 11 Refills, Soft Stop, 02/18/20 9:42:00 EDT, [facility]/pharmacy #0957, 154.9, cm, 12/30/19 11:15:00 EDT, [...] 9:43:00 EDT, Route to Pharmacy Electronically, [facility]/pharmacy #0957, 154.9, cm, 12/30/19 11:15:00 EDT,Height, [...] 04/20/20 13:51:00 EST, Route to Pharmacy Electronically, [id number], [facility]/pharmacy #0957, 154.9, cm, 12/30/19 11:15:00 EDT, Height,... Start Date: 04/20/20 Stop Date: 04/15/21 Status: Ordered Stiolto Respimat 60 ACT 2.5 mcg-2.5 mcg/inh inhalation aerosol 2 puffs, Inhalation, Every 24 hours, to replace tiotropium, # 4 Gm, 11 Refills, Maintenance, 02/18/20 9:43:00 EDT, Aerosol, [facility]/pharmacy #0957, 154.9, cm, 12/30/19 11:15:00 EDT, [...] 11 Refills, Maintenance, 04/20/20 13:59:00 EST, [facility]/pharmacy #0957, 154.9, cm, 12/30/19 11:15:00 EDT, Height, 55.3, kg, 04/19/19 8:36:00 EST, Dry... Start Date: 04/20/20 Status: Ordered Problem List Condition Effective Dates Status Health Status Inform ant Age at leaving school - ged(Confirmed) Active ASCUS(Confirmed) Active 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 Sleep Report(Confirmed) 05/25/11 Active Hep C: Cleared without treatment(Confirmed) Active Clubbing(Confirmed) [facility]: [facility] Active Esophageal reflux (GERD)(Confirmed) [...]
--- OUTSIDE RECORDS SUMMARY | 2022-12-26 10:39 | XMS_ITS | Continuity of Care Document ---
Author Name Unknown Organization [facility] Address [address] [place] [address]- Care Team Providers Care Textile Screen Printer Name Role Phone Adalberto Murcia MD Primary Care Physician Encounter [facility] [place] Date(s): 07/31/19 - 08/10/[address] [address]- [facility] Attending Physician: Angelina Mendoza Admitting Physician: AdmAngelina [...] 06/02/09 Given Influenza Inactive (IM) (oldterm) 7 4/18/11 Given influ virus vac, H1N1, inactive(oldterm) 8 [...] 03/19/19 10:53:39 EST, Route to Pharmacy Electronically, [id number], [facility]/pharmacy #1026 Start Date: 03/19/19 Status: Ordered cetirizine 10 mg oral tablet 1 tablet = 10 mg, By Mouth, Daily, PRN Other, PRN allergies, # 30 tablet, 11 Refills, Maintenance, 05/28/19 12:01:00 EST, Tablet, [facility]/pharmacy #0957, 154.9, cm, 05/28/19 11:40:00 [...] 3 times a day, Please fax to [facility] on [address] [phone], # 90 tablet, 2 Refills, Maintenance, 09/17/18 12:46:43 EDT, Tablet Start Date: 09/17/18 Status: Ordered CPAP Equipment See Instructions, # 1 units, Refills 12, Tot. Refills 12, Maintenance, BiPAP supplies: Mask, tubing, filters, headgear, chin strap, heated water chamber Dx: ELSA G47.33 Length of need 99 months Pleasefax to [facility], [phone], 09/04/18 15:13:48 EDT, Co... Start Date: 09/04/18 Status: Ordered CPAP Equipment See Instructions, # 1 units, Refills 12, Tot. 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 Start Date: 06/30/17 Status: Ordered diphenhydrAMINE 25 [...] Gm, 11 Refills, Maintenance, 05/28/19 12:01:00 EST, [facility]/pharmacy #0957, 1 sprays Nasal Daily, 154.9, cm, 05/28/19 11:40:00 EST, Height, 55.3, kg, 04/19/19 8:36:00 EST, Dry Weight Start Date: 05/28/19 Status: Ordered Flovent HFA 220 mcg/inh inhalation aerosol See Instructions, # 12 Unknown, Refills 11 Tot. Refills 11, TAKE 2 PUFFS BY MOUTH TWICE A DAY [place] AND THROAT AFTER EACH USE, [facility]/pharmacy #1026 Start Date: 03/15/19 Status: Ordered ibuprofen 600 mg oral tablet 600 mg, 1, tablet, By Mouth, 3 times a day, PRN, with food, # 270 tablet, Refills 11, Tot. Refills 11, Maintenance, as needed for pain, 06/27/17 17:45:19, Route to Pharmacy Electronically, [id number], [facility]/pharmacy #1026 Start Date: 06/27/17 Status: Ordered lisinopril 10 mg oral tablet 10 mg, 1, tablet, By Mouth, Daily, # 30 tablet, Refills 11, Tot. Refills 11, Maintenance, 05/28/19 12:01:00 EST, Route to Pharmacy Electronically, [facility]/pharmacy #0957, 154.9, cm, 05/28/19 11:40:00 [...] 05/28/19 12:01:00 EST, Route to Pharmacy Electronically, [id number], [facility]/pharmacy #0957, 154.9, cm, 05/28/19 11:40:00 [...] Active Clubbing(Confirmed) Active Drug abuse: Suboxone via [facility](Confirmed) Active Esophageal reflux (GERD)(Confirmed) 05/09/12 [...]
--- OUTSIDE RECORDS SUMMARY | 2022-12-26 10:39 | XMS_ITS | Continuity of Care Document ---
Author Name Unknown Organization [facility] Address [address] [place] [address]- Care Team Providers Care Patient Relations Director Name Role Phone Divina MARINELLI, Adalberto Reeder Primary Care Physician Encounter [facility] Date(s): 04/07/20 - 05/07/[address] [address]- Allergies, Adverse Reactions, Alerts Substance Reaction Severity [...] 1 Refills, Maintenance, 07/31/19 11:08:00 EDT, Tablet, [facility]/pharmacy #0957, 154.9, cm, 07/04/19 9:38:00 EST, Height, [...] tablet = 0.5 mg, By Mouth, Once, will call order clerk to procedure. May repeat X 1, # 2 tablet, 0 Refills, Soft Stop, 04/24/20 11:56:00 EST, Tablet, [facility]/pharmacy #0957, Partial fill upon patient request if [...] 02/18/20 9:42:00 EDT, [facility] 154.9, cm, 12/30/19 11:15:00 EDT, Height, [...] [facility] [address] [phone], # 90 tablet, 2 Refills, Maintenance, 09/17/18 12:46:43 EDT, Tablet Start Date: 09/17/18 Status: Ordered CPAP Equipment See Instructions, # 1 units, Refills 12, Tot. Refills 12, Maintenance, BiPAP supplies: Mask, tubing, filters, headgear, chin strap, heated water chamber Dx: ELSA G47.33 Length of need 99 months Pleasefax to [facility], [phone], 09/04/18 15:13:48 EDT, Co... Start Date: 09/04/18 Status: Ordered CPAP Equipment See Instructions, # 1 units, Refills 12, Tot. 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 Start Date: 06/30/17 Status: [facility]dered [facility] [...] 04/20/20 13:51:00 EST, Route to Pharmacy Electronically, [id number], [facility]/pharmacy #0957, 154.9, cm, [...] Active Clubbing(Confirmed) Active Drug abuse: Suboxone via [facility](Confirmed) Active Esophageal reflux (GERD)(Confirmed) [...]
--- NOTE | 2022-12-26 10:48 | ED.NEUROSD ---
HPI - Neuro Symptoms/Deficit General Chief Complaint: General Medical Stated Complaint: R sided weakness/Mental status change Time Seen by Provider: 12/26/22 10:22 Source: patient, family and old records reviewed Mode of arrival: ambulatory Limitations: no limitations History of Present Illness HPI Narrative: 67 yo female with hx of lung cancer and then dx with lesion to R frontal lobe in October 2022 after presenting with L sided weakness here she was transferred to [facility] and underwent surgery. She was then discharged to rehab and did really well. She has followed up at [facility] since then and has had one round of chemo 12/14 but had some nausea and was sort of deciding on repeat session. She declined radiation and does not want to pursue that treatment. The patient's daughter and her present after noticing change in behaviors, tremors to the body that are intermittent and mostly on R side, worsening headaches that they believe have been going on for the last 1-2 weeks. She has been declining and they are concerned about new brain lesions. Onset (ago): week(s) (1+) Timing confirmed by: family member Location: right arm, right leg, ataxia and altered History of same: Yes Severity: moderate Quality: weak and intermittent Relieving factors: none Exacerbating factors: other (has a harder time walking) Context: gradual onset On Anticoagulants: No Associated symptoms: confusion, headaches, loss of appetite, malaise and nausea/vomiting Treatments Prior to Arrival: none Related Data Home Medications Medication Instructions Recorded Confirmed albuterol sulfate 90 mcg/actuation 2 puff inhalation QID PRN wheezing 10/25/22 10/25/22 aerosol inhaler (Ventolin HFA) alendronate 70 mg tablet 70 mg PO TU 10/25/22 10/25/22 calcium carbonate 600 mg-vitamin 1 tab PO BID 10/25/22 10/25/22 D3 10 mcg (400 unit) tablet clonazepam 0.125 mg disintegrating 0.125 mg PO BEDTIME PRN Anxiety 10/25/22 10/25/22 tablet fluticasone propionate 50 1 spray intranasal DAILY 10/25/22 10/25/22 mcg/actuation nasal spray,suspension lisinopril 10 mg tablet 10 mg PO DAILY 10/25/22 10/25/22 melatonin 3 mg tablet 6 mg PO BEDTIME PRN insomnia 10/25/22 10/25/22 methadone 10 mg/mL oral 70 mg PO DAILY 10/25/22 concentrate (Methadone Intensol) omeprazole 20 mg capsule,delayed 20 mg PO DAILY 10/25/22 10/25/22 release tiotropium 2.5 mcg-olodaterol 2.5 2 puff inhalation DAILY 10/25/22 10/25/22 mcg/actuation mist for inhalation (Stiolto Respimat) Previous Rx's Medication Instructions Recorded ceftriaxone 1 gram solution for 1 g IV Q24H #1 ea 10/26/22 injection dexamethasone sodium phosphate 4 10 mg (2.5 mL) IVPUSH Q6H #1 mL 10/26/22 mg/mL injection solution nicotine 21 mg/24 hr daily 21 mg transdermal DAILY #1 ea 10/26/22 transdermal patch Allergies Allergy/AdvReac Type Severity Reaction Status Date / Time elastic Allergy Unknown Uncoded 10/25/22 09:25 Review of Systems Review of Systems: Constitutional : No Fever, No Chills, No Fatigue ENT/Mouth : No sore throat, No Rhinorrhea Eyes: No Eye Pain, No Swelling, No Redness, pos blurry vision Cardiovascular : No Chest Pain, No SOB, No Dyspnea on Exertion Respiratory : No Cough, No Sputum Gastrointestinal : pos Nausea, No Vomiting, No Diarrhea, No abdominal Pain Genitourinary : No Dysuria, No Urinary Frequency, No Hematuria, Musculoskeletal : No joint pain, No Myalgias, No Joint Swelling Skin : No Skin Lesions, No rash Neuro : No Weakness, No Numbness, No Dizziness, positive Headache, pos tremors Psych : No Anxiety/Panic, No Depression Heme/Lymph: No Bruising, No Bleeding,No Lymphadenopathy Endocrine : No Polyuria, No Polydipsia All other systems reviewed and are negative [facility] Past Medical History Attestation statement: The following information was validated with the patient. Medical History No pertinent past medical history Surgical History No pertinent past surgical history Social History Social History Household Members: None Housing: House Patient Tobacco Use Status: Current everyday Tobacco user Cigarette Packs Per Day: 1 Substance Use Type: Amphetamines and Heroin Advance Directives: Yes Advance Directives on File: Yes Advance Directives Date on File: 10/25/22 service: No Physical Exam Vital Signs: Vital Signs: Last Vital Signs Temp 97.9 F 12/26/22 10:15 Pulse 94 12/26/22 10:15 Resp 16 12/26/22 10:15 BP 104/83 12/26/22 10:15 Pulse Ox 96 12/26/22 10:15 O2 Del Method Room Air 12/26/22 10:15 BMI result Body Mass Index 22.6 Appearance: Alert. Oriented X3. No acute distress. patient is restless, patient is oriented but seems confused at times during conversation and needs redirection Eyes: Pupils R is 4mm and L is 2mm R is sluggish ENT: Pharynx normal. Neck: Normal inspection. Neck supple. CVS: Normal heart rate and rhythm. Pulses normal. Respiratory: No respiratory distress. Breath sounds normal. Abdomen: Soft and nontender. Skin: Skin warm and dry. Normal skin color. Normal skin turgor. Extremities: No lower extremity edema. No calf ttp Neuro: Oriented X 3. R side feels more weak and tremors noted at times clonus is present 2 beat in foot No sensory deficit. Course Course Course Narrative: feels better with IV Morphine for headace Reevaluation(s) Reevaluation #1: repleting magnesium MRI possible residual but nothing causing mass effect at this time or edema on MRI no stroke seen Reevaluation #2: put on neutropenic precautions daughter who works in oncology notes patient did not receive any medications such as neupogen / neulasta and the patient did not have CBC check post chemo infusion including taxol/carboplatin on 12/14. She has not had a fever. Medications Administered Discontinued Medications Generic Name Dose Route Start Last Admin Trade Name Freq PRN Reason Stop Dose Admin Dexamethasone Sodium Phosphate 6 mg 12/26/22 10:44 12/26/22 12:04 Dexamethasone Sod Phosphate 4 Mg/Ml Vial IVPUSH 12/26/22 10:45 6 mg ONCE ONE Administration Gadobutrol 7.5 ml 12/26/22 13:09 12/26/22 13:10 Gadobutrol 7.5 Ml Vial IVPUSH 12/26/22 13:10 5 ml ONCE ONE Administration Sodium Chloride 1,000 mls @ 999 mls/hr 12/26/22 10:45 12/26/22 14:18 Ns IVCONT 12/26/22 11:45 999 mls/hr .Q1H1M YO Administration Magnesium Sulfate 2 gm in 50 mls @ 25 mls/hr 12/26/22 12:30 12/26/22 14:18 Magnesium Sulfate/H2o IV 12/26/22 14:29 25 mls/hr ONCE ONE Administration Levetiracetam 500 mg 12/26/22 14:28 12/26/22 14:35 Levetiracetam 500 Mg Tablet PO 12/26/22 14:29 500 mg ONCE ONE Administration Morphine Sulfate 4 mg 12/26/22 10:44 12/26/22 12:04 Morphine Sulfate 4 Mg/Ml Cartridge IVPUSH 12/26/22 10:45 4 mg ONCE ONE Administration Protocol Ondansetron HCl 4 mg 12/26/22 10:44 12/26/22 12:05 Ondansetron Hcl 4 Mg/2 Ml Vial IVPUSH 12/26/22 10:45 4 mg ONCE ONE Administration Medical Decision Making Medical Decision Making [facility] Narrative: 67 yo female with hx of lung cancer s/p chemo 12/14 through [facility] recent R frontal lobe tumor with resection 10/28 has done well post rehab after surgery now she has had increased confusion, lethargy R sided weakness, tremors and worsening headaches. She declined radiation and seems to be on the fence about chemo though said she would do it. She has symptoms concerning for new brain mets - I am going to order labs, IVF, IV morphine for pain, pending MRI with contrast will give one dose of dexamethasone - can get MRI at 1145am. daughter also notes post operative no prior seizures and the patient was on keppra post up until Mid November without side effects. Differential Diagnosis Differential Diagnoses: The differential diagnosis associated with the presentation includes stroke, subclinical seizures, mass to brain Admission/Observation Consideration of admission/observation: Escalation of care including admission/observation considered admit given low plts and not fully at baseline Consult Healthcare Provider Management of the patient was discussed with: Dockmaster (consult to Neurology ) Dr. Mayfield - restart radha and outpatient EEG. Dr. Murrell - transfusion plts and start on granix Lab Data [facility] Lab Attestation statement: I reviewed the patient's lab results. magnesium low - repleting 2G 12/26/22 12:00 08/21/23 12:00 Labs: Lab Results 12/26/22 12/26/22 12/26/22 Range/Units 12:00 14:19 14:19 WBC 0.3 L* (4.8-10.8) X10*3/uL RBC 3.77 L (4.20-5.50) X10*6/uL Hgb 11.0 L (12.0-16.0) g/dl Hct 31.9 L (37.0-47.0) % MCV 84.6 (80.0-98.0) fL MCH 29.2 (27.0-33.0) pg MCHC 34.5 (31.0-35.0) g/dl RDW 12.1 (11.0-16.0) % Plt Count 8 L* D (160-400) X10*3/uL MPV Not Reportable Immature Gran % (Auto) 0.0 (0.0-0.4) % Neut % (Auto) 3.3 L (45-73) % Lymph % (Auto) 73.3 H (20-40) % [place] % (Auto) 16.7 H (2-11) % Eos % (Auto) 6.7 H (0-4) % Baso % (Auto) 0.0 (0-2) % Lymph # (Auto) 0.2 L (1.2-4.9) X10*3/uL [place] # (Auto) 0.1 (0.1-1.2) X10*3/uL Eos # (Auto) 0.0 (0.0-0.4) X10*3/uL Baso # (Auto) 0.0 (0.0-0.2) X10*3/uL Abs Immat Gran (auto) 0.00 (0.00-0.03) X10*3/uL Absolute Neuts (auto) 0.0 L (2.0-8.3) x10*3/uL Absolute Nucleated RBC 0.000 (0.0-0.012) X10*3/uL Nucleated RBC % (auto) 0.0 (0.0-0.2) /100WBC Smear Tech's Comments VERIFIED Sodium 137 (135-145) mmol/L Potassium 3.9 (3.3-5.1) mmol/L Chloride 104 (96-108) mmol/L Carbon Dioxide 24 (22-29) mmol/L Anion Gap 13 (12-20) BUN 16 (9-16) mg/dL Creatinine 1.09 (0.5-1.4) mg/dL Estim Creat Clear Calc 36.0 Estimated GFR 50 Random Glucose 67 (60-115) mg/dL Calcium 8.0 L D (8.4-10.2) mg/dL Magnesium 1.2 L* (1.6-2.6) mg/dL Total Bilirubin 0.6 (0.0-1.0) mg/dL Direct Bilirubin 0.2 (0.0-0.5) mg/dL AST 26 (5-31) U/L ALT 14 (0-31) U/L Alkaline Phosphatase 56 (39-117) U/L Total Protein 6.4 L (6.5-8.0) g/dL Albumin 3.3 L (3.5-5.0) g/dL Blood Type A Positive Antibody Screen NEGATIVE Independent Interpretation I performed an independent interpretation of an: EKG and CT Scan (MRI) Interpretation: MRI - no new mass but some areas of scar noted EKG #1 Rate: 81 Rhythm: NSR [place]: normal Normal P waves. Normal ZACH. Normal QRS complex. ST T wave : normal no YAAKOV qTC: normal prior studies: no acute ischemia The study has been interpreted contemporaneously by me. . Radiology Impression Discussion of test interpretation with radiology: I have reviewed the radiologist's reading. Independent Historian Clinical information obtained from an independent historian. History obtained from or confirmed by: Other (daughter) External Record Review External record reviewed: Inpatient record, Outpatient record and Prior outpatient radiology Critical Care Time Critical Care Time Critical Care Time: Yes Total Critical Care Time: 60 Attestation: repletion of magnesium, IV morphine for acute headache improved. I attest to this time spent taking care of the patient Discharge Plan Discharge Clinical Impression: Hypomagnesemia, Tremors of nervous system, Thrombocytopenia, Acute confusion Neutropenia Qualifiers: Neutropenia type: secondary to cancer chemotherapy Qualified Code(s): D70.1 - Agranulocytosis secondary to cancer chemotherapy Patient Disposition: Admitted As Inpatient
[2022-12-26] MEDS: Morphine Sulfate 4 MG/ML CARTRIDGE IVPUSH (12:04)
[2022-12-26] MEDS: dexAMETHasone sod phosphate 4 MG/ML VIAL 6 MG IVPUSH (12:04)
[2022-12-26] MEDS: ondansetron HCL 4 MG/2 ML VIAL IVPUSH (12:05)
[2022-12-26 12:31] LABS: Alanine Aminotransferase 14 U/L (0-31); Albumin Level 3.3 g/dL (3.5-5.0); Alkaline Phosphatase 56 U/L (39-117); Anion Gap 13 (12-20); Aspartate Amino Transferase 26 U/L (5-31); Bilirubin Direct 0.2 mg/dL (0.0-0.5); Bilirubin Total 0.6 mg/dL (0.0-1.0); Blood Urea Nitrogen 16 mg/dL (9-16); Carbon Dioxide 24 mmol/L (22-29); Chloride 104 mmol/L (96-108); Estimated Glomerular Filt Rate 50; Glucose Random 67 mg/dL (60-115); Magnesium 1.2 mg/dL (1.6-2.6); Potassium 3.9 mmol/L (3.3-5.1); Sodium 137 mmol/L (135-145); Total Protein 6.4 g/dL (6.5-8.0)
[2022-12-26] MEDS: gadobutroL 7.5 ML VIAL IVPUSH (13:10)
--- NOTE | 2022-12-26 13:25 | PC.NURSE ---
Pt at MRI, unable to give scheduled medication of 0.9 NS and Magnesium sulfate. Will administer when pt is back to unit.
--- NOTE | 2022-12-26 13:37 | ECG_ITS ---
Test Reason : Hypomagnesemia Blood Pressure : / mmHG Vent. Rate : 081 BPM Atrial Rate : 081 BPM P-R Int : 154 ms QRS Dur : 084 ms QT Int : 390 ms P-R-T Axes : 070 042 058 degrees QTc Int : 453 ms Normal sinus rhythm Normal ECG When compared with ECG of 26-OCT-2022 08:27, Nonspecific T wave abnormality, improved in Inferior leads QT has lengthened Referred By: Winnie Mariano Electronically Signed By:MUKESH PAREDES
[2022-12-26] MEDS: 0.9 % Sodium Chloride 1,000 ML 999 ML IVCONT (14:18)
[2022-12-26] MEDS: Magnesium Sulfate/H2O 2 GM/50 ML PIGGYBACK IV (14:18)
[2022-12-26 14:28] LABS: Eosinophils Percent Auto 6.7 % (0-4); Hematocrit 31.9 % (37.0-47.0); Lymphocytes Absolute Auto 0.2 X10*3/uL (1.2-4.9); Lymphocytes Percent Auto 73.3 % (20-40); MANUAL DIFF FLAG SCAN; Mean Corpuscular HGB Conc 34.5 g/dl (31.0-35.0); Mean Corpuscular Hemoglobin 29.2 pg (27.0-33.0); Mean Corpuscular Volume 84.6 fL (80.0-98.0); Monocytes Absolute Auto 0.1 X10*3/uL (0.1-1.2); Monocytes Percent Auto 16.7 % (2-11); Neutrophils Percent Auto 3.3 % (45-73); Red Blood Count 3.77 X10*6/uL (4.20-5.50); Red Cell Distribution Width 12.1 % (11.0-16.0); SCAN SMEAR FLAG 1
[2022-12-26 14:34] LABS: White Blood Count 0.3 X10*3/uL (4.8-10.8)
[2022-12-26] MEDS: levETIRAcetam 500 MG TABLET PO (14:35)
[2022-12-26 14:50] LABS: Platelet Count 8 X10*3/uL (160-400)
[2022-12-26 14:57] LABS: SLIDE REVIEW VERIFIED
[2022-12-26] MEDS: clonazePAM 1 MG TABLET 2 MG PO (16:16)
[2022-12-26] MEDS: Tbo-Filgrastim 300 MCG/0.5 ML SYRINGE SUBCUT (16:47)
--- NOTE | 2022-12-26 16:56 | P.HPHOSP_ITS ---
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 She did undergo R frontal craniotomy and resected in of 3 cm focal mass on 10/27/2022 at [facility]. Patient is following with [facility] and is undergoing palliative chemo immunotherapy with paclitaxel, carboplatin, and pembrolizumab which was started in 12/14. She states that morning prior to chemo administration, developed severe right-sided headache. She states the pain starts in the TMJ and then radiates to the right side of the head. Describes this as a sharp pulsing sensation associated with phonophobia, photophobia, and nausea. Denies any blurred vision or diplopia, no vomiting. No fevers or chills. Daughter also noted change in behaviors and tremors and is concerned for new brain lesions. On arrival, patient afebrile, vitals within normal limits. She has a severe leukopenia 0.3, RBC 3.77, H/H 11.0/31.9%, platelet count 8. Renal function normal, electrolyte levels normal. Magnesium level 1.2. MRI of the brain was ordered while in the ED showing interval postoperative changes following right frontoparietal craniotomy for resection of the previously seen enhancing mass within the subcortical white matter of the right frontal lobe. There is also linear enhancement along the periphery of the resection cavity for which follow- up is advised to distinguish between involving granulation/scar tissue versus residual/recurrent small volume tumor. No new definitive remote enhancing le sions however. There is significantly improved edema within the frontal white matter with decreased effect including resolution of previously seen leftward midline shift.Reviewed [facility] records, lsat WBC 2.8 on 12/14. No neupogen/neulasta given per daughter. In the ED, given 2 g IV magnesium, IV m orphine, 1 L IV NS, 300 mcg pill gastrin, 2 mg clonazepam, 6 mg dexamethasone, 500 mg Keppra (was previously on keppra and no seizures post operatively. Review of Systems Review of Systems: General: No fevers, malaise, unintentional weight loss. +chills, +general weakness HEENT: No blurred vision, diplopia. No sore throat, nasal congestion, rhinorrhea, sinus pain, ear pain Cardiovascular: No chest pain, palpitations, or leg edema Respiratory: No shortness of breath, wheezing, cough GI: No abdominal pain, nausea, vomiting, diarrhea, constipation, melena, hematochezia : No dysuria, hematuria, increased urinary frequency, decreased urinary output MSK: No myalgia, back pain Neuro: No weakness, paresthesias. +headache, +memory impairment, tremor Skin: No rashes or lesions [facility] Medical History Emphysema lung GERD (gastroesophageal reflux disease) HTN (hypertension) Metabolic brain disease Opiate dependence 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 Thrombocytopenia Surgical History S/P craniotomy Social History Household Members: None Housing: Apartment Patient Tobacco Use Status: Former Tobacco user Tobacco use type: Cigarette Cigarette Packs Per Day: 1 Use of substances other than those prescribed or required for medical reasons: No Substance Use Type: Amphetamines and Heroin Currently Displaying Signs/Symptoms of Drug Intoxication Withdrawal: No [employer] Healthcare Practices: Buddhism Advance Directives: Yes Advance Directives on File: Yes Advance Directives Date on File: 10/25/22 Do you have thoughts of harming others: None Do you have a plan to hurt others: No Plan Recently lost weight without trying: Yes How much weight loss: 2-13 pounds Nutrition Risks: Poor intake 0-25% >4 days Patient : No service: No Meds Allergies Allergy/AdvReac Type Severity Reaction Status Date / Time elastic Allergy Unknown Uncoded 10/25/22 09:25 Active Medications: Current Medications Acetaminophen (Acetaminophen 325 Mg Tablet) 650 mg PO Q6H PRN PRN Reason: Pain, Mild (Pain Scale 1-3) Docusate Sodium (Docusate Sodium 100 Mg Capsule) 100 mg PO DAILY PRN PRN Reason: Constipation Ondansetron HCl (Ondansetron Hcl 4 Mg/2 Ml Vial) 4 mg IVPUSH Q8H PRN PRN Reason: Nausea and Vomiting Sodium Chloride (0.9 % Sodium Chloride Flush 3 Ml Syringe) 3 ml IVFLUSH QSHIFT [facility] Home Medications Medication Instructions Recorded Confirmed Last Taken Type albuterol sulfate 90 mcg/actuation 2 puff inhalation QID PRN wheezing 10/25/22 12/26/22 12/26/22 History aerosol inhaler (Ventolin HFA) alendronate 70 mg tablet 70 mg PO TU 10/25/22 12/26/22 12/20/22 History calcium carbonate 600 mg-vitamin 1 tab PO BID 10/25/22 12/26/22 12/26/22 History D3 10 mcg (400 unit) tablet fluticasone propionate 50 1 spray intranasal DAILY 10/25/22 12/26/22 Unknown History mcg/actuation nasal spray,suspension lisinopril 10 mg tablet 10 mg PO DAILY 10/25/22 12/26/22 12/26/22 History melatonin 3 mg tablet 6 mg PO BEDTIME 10/25/22 12/26/22 12/25/22 History methadone 10 mg/mL oral 70 mg PO DAILY 10/25/22 10/25/22 History concentrate (Methadone Intensol) ascorbic acid (vitamin C) 1,000 mg 1,000 mg PO DAILY 12/26/22 12/26/22 12/26/22 History tablet (Vitamin C) buspirone 10 mg tablet 10 mg PO BID 12/26/22 12/26/22 12/26/22 History clonazepam 0.25 mg disintegrating 0.25 mg PO BID PRN anxiety attack 12/26/22 12/26/22 Unknown History tablet fluticasone propionate 220 2 puff inhalation BID 12/26/22 12/26/22 Unknown History mcg/actuation HFA aerosol inhaler (Flovent HFA) lidocaine-prilocaine 2.5 %-2.5 % 1 appl topical DAILY PRN PRIOR TO 12/26/22 12/26/22 12/26/22 History topical cream PORT USE pantoprazole 40 mg tablet,delayed 40 mg PO DAILY 12/26/22 12/26/22 12/26/22 History release sennosides 8.6 mg tablet (senna) 8.6 mg PO BEDTIME PRN constipation 12/26/22 12/26/22 12/26/22 History venlafaxine 37.5 mg 37.5 mg PO QAM 12/26/22 12/26/22 12/26/22 History capsule,extended release 24 hr Physical Exam Vital Signs and Narrative: Vital Signs: Last Vital Signs Temp 97.9 F 12/26/22 10:15 Pulse 94 12/26/22 10:15 Resp 16 12/26/22 10:15 BP 104/83 12/26/22 10:15 Pulse Ox 96 12/26/22 10:15 O2 Del Method Room Air 12/26/22 10:15 BMI result Body Mass Index 22.6 Constitutional - Awake and Alert, No apparent distress Eyes - PERRLA, EOMI Cardiovascular - S1S2, RRR, No edema Respiratory - Normal lung expansion, Normal respiratory effort, No respiratory distress, CTA bilaterally Gastrointestinal - NT / ND; +BS; No rebound or guarding Extremities - no calf tenderness bilaterally, no swelling Skin - Warm/Dry Neurological - Alert & oriented x3, poor memory recall, CN II-XII in tact, 5/5 strength BUE and BLE Psychological - Appropriate affect Results Labs 12/26/22 14:19 12/26/22 12:00 Labs: Laboratory Results - last 24 hr 12/26/22 12/26/22 12/26/22 12:00 14:19 14:19 MCV 84.6 MCH 29.2 MCHC 34.5 RDW 12.1 Plt Count 8 L* D MPV Not Reportable Immature Gran % (Auto) 0.0 Neut % (Auto) 3.3 L Lymph % (Auto) 73.3 H [place] % (Auto) 16.7 H Eos % (Auto) 6.7 H Baso % (Auto) 0.0 Lymph # (Auto) 0.2 L [place] # (Auto) 0.1 Eos # (Auto) 0.0 Baso # (Auto) 0.0 Abs Immat Gran (auto) 0.00 Absolute Neuts (auto) 0.0 L Absolute Nucleated RBC 0.000 Nucleated RBC % (auto) 0.0 Smear Tech's Comments VERIFIED Anion Gap 13 Estim Creat Clear Calc 36.0 Estimated GFR 50 Random Glucose 67 Calcium 8.0 L D Magnesium 1.2 L* Total Bilirubin 0.6 Direct Bilirubin 0.2 AST 26 ALT 14 Alkaline Phosphatase 56 Total Protein 6.4 L Albumin 3.3 L Blood Type A Positive Antibody Screen NEGATIVE Imaging Radiologist's Impressions: Impressions Brain MRI 12/26/22 13:03 IMPRESSION: - Interval postoperative changes following right frontoparietal craniotomy for resection of the previously seen enhancing mass within the subcortical white matter of the right frontal lobe. There is linear enhancement along the periphery of the resection cavity for which follow-up is advised to distinguish between evolving granulation/scar tissue versus residual/recurrent small volume tumor. No definite new remote enhancing lesions however post contrast imaging is very limited due to significant motion artifact. - There is significantly improved edema within the right frontal white matter with decreased mass effect including resolution of previously seen leftward midline shift. Assessment and Plan (1) Stage 4 malignant neoplasm of lung: Status: Acute (2) Metabolic brain disease: Status: Acute (3) Neutropenia: Qualifiers: Neutropenia type: secondary to cancer chemotherapy Qualified Code(s): D70.1 - Agranulocytosis secondary to cancer chemotherapy; T45.1X5A - Adverse effect of antineoplastic and immunosuppressive drugs, initial encounter Status: Acute (4) Thrombocytopenia: Status: Acute (5) Hypomagnesemia: Status: Acute Plan 67-year-old female with history of hypertension, history of lung cancer s/p left lobectomy 2020, now with stage IV squamous cell carcinoma of the lung with met astasis to the brain, emphysema, htn, history hepatitis C treated with antiviral therapy, depression, GERD, emphysema, opioid dependence on methadone who is a current 1 cigarette per day smoker admitted for new onset headaches in patient with known brain metastases s/p craniotomy with excision of brain tumor and neutropenia following chemotherapy. #Acute chemotherapy induced neutropenia- -receiving palliative chemo immunotherapy at [facility] with paclitaxel, carboplatin, and pembrolizumab for stage IV squamous cell carcinoma of the lung with brain metastasis -WBC 0.3 -Given filgastrim in the ED -neutropenic precautions -oncology consult -Follow CBC #Acute on chronic thrombocytopenia -likely chemo induced -dexamethasone 6 mg daily (initiated 12/26) -hematology consult -follow CBC #Acute headache -right sided migraine type headache with associated phonophobia, photophobia, nausea. No diplopia -MRI brain did not show any or new remote enhancing lesions but does show linear enhancement along the periphery of the resection cavity for which follow-up is advised to distinguish between evolving granulation/scar tissue versus residual/recurrent small cell volume tumor -neurology consult -pain management p.r.n. # stage IV metastatic squamous cell carcinoma of the lung -on palliative chemo immunotherapy as above #Behavioral/memory changes noted by daughter -likely 2/2 craniotomy and tumor resection -neuro consult # opioid dependence -continue methadone # mood disorder -continue home meds # emphysema -no acute exacerbation -continue Flovent, albuterol p.r.n. # hypertension -blood pressure is reasonably controlled -continue home meds DVT prophylaxis- SCPs Full code, Healthcare proxy, daughter Magda Patient requires inpatient stay of at least 2 midnights for management of acute neutropenia and thrombocytopenia following chemotherapy requiringfilgastrim and dexamethasone with close monitoring as patient at risk for bleeding and infection. Must closely monitor blood counts and appreciate expert consultation. Time Spent With Patient Time: Total time managing care of this patient today ____ minutes. Quality Stroke Does the patient have a stroke diagnosis?: No VTE Prior VTE?: No VTE Risk Level:: Medical - moderate - high VTE Device Contraindication: Treatment Not Indicated VTE Drug Contraindication: N/A - Med Ordered
--- NOTE | 2022-12-26 17:05 | PHA.MEDREC ---
Pharmacy Consult ? Medication Reconciliation Pharmacy has completed the medication reconciliation. Patient confirmed medications. Reports she is using the orange inhaler and ventolin. Per claim history patient filled Flovent HFA 220 mcg in [facility]. Patient has no idea what Stiolto is. Patient reported Methadone clinic is [facility], dose will need to be confirm by RN tomorrow. Teresa Metz, PharmD
[2022-12-26 18:36] VITALS: BP 160/130; PULSE 88; O2SAT 92
[2022-12-26 20:08] VITALS: BP 103/64; PULSE 79; RESP 18; TEMP 36.9
--- NOTE | 2022-12-26 20:20 | PC.NURSE ---
Plt now running, no tubing sent with plt, difficulty finding witness.
[2022-12-26 20:34] VITALS: BP 111/57; PULSE 90; RESP 18; TEMP 36.7
[2022-12-26 20:53] LABS: Appearance Urine Clear; Color Urine Yellow; Glucose Urine UA Negative (Negative); Leukocyte Esterase Urine Negative (Negative); Nitrite Urine Negative (Negative); Specific Gravity - Urine <= 1.005 (1.005-1.025); Urine Blood Negative (Negative); Urine Ketones Negative (Negative); Urine Protein Negative (Neg-Trace)
[2022-12-26 21:10] LABS: Amphetamine Screen Urine Not Detected (Not Detect); Barbiturates, Urine Not Detected (Not Detect); Benzodiazepines Screen Urine Not Detected (Not Detect); Cannabinoid Screen Urine Not Detected (Not Detect); Cocaine Screen Urine Not Detected (Not Detect); Fentanyl, urine POSITIVE (Not Detect); Opiate Screen Urine POSITIVE (Not Detect); Phencyclidine Screen Urine Not Detected (Not Detect)
--- NOTE | 2022-12-26 21:15 | PC.RT ---
Pharmacy called for [facility], spoke with Tania
[2022-12-26 22:06] VITALS: BP 114/78; PULSE 82; RESP 20; TEMP 37
[2022-12-26 22:24] VITALS: BMI 23.8
[2022-12-27] VITALS (21 sets, daily range): BP systolic 74–145; BP diastolic 41–79; PULSE 74–115; RESP 15–29; TEMP 36.3–40.4; O2SAT 92–99; BMI 23.8
--- NOTE | 2022-12-27 03:18 | PC.NURSE ---
Addendum entered by Melissa Lr RN 12/27/22 06:22: T-Max 104.7 rectally, rigors throughout. MD notified. Rectal tylenol ordered and given, pt placed on cooling blanket. STAT Labs ordered, results in chart. MD notified of critical values. LR ordered at 100mls/hr, infusing. Platelets ordered, pending from BB. Daughter Magda updated over the phone. Original Note: Pt admitted to [facility] from ED at approx 2200, daughter at bedside for admission. Pt A&Ox3, dowsy but responsive to voice. Vague on answering questions and often needing to be redirected. Pt O2 sats from 85-92% on room air, reach out to MD continuous pulse ox placed on patient, remains on room air and O2 sats >92% rest of shift. Fine crackles heard on right side, CXR ordered per MD. Pt has right chest portacath not access, per MD okay to access port. Platelets finished infusing upon admission, no difficulties. Purewick placed. High fall risk interventions in place. Call hernandez within reach. Bed in lowest locked position.
[2022-12-27] MEDS: Acetaminophen Supp 650 MG SUPP.RECT PR (04:34)
[2022-12-27] MEDS: Omeprazole 20 MG CAPSULE.DR PO (05:29)
[2022-12-27 05:30] LABS: Hematocrit 29.2 % (37.0-47.0); Mean Corpuscular HGB Conc 34.2 g/dl (31.0-35.0); Mean Corpuscular Hemoglobin 29.2 pg (27.0-33.0); Mean Corpuscular Volume 85.4 fL (80.0-98.0); Mean Platelet Volume 10.2 fL (9.4-12.3); Red Blood Count 3.42 X10*6/uL (4.20-5.50); Red Cell Distribution Width 11.9 % (11.0-16.0)
[2022-12-27 05:31] LABS: WBC ABN SCTR FOR CBC 1
[2022-12-27 05:35] LABS: Platelet Count 13 X10*3/uL (160-400); White Blood Count 0.3 X10*3/uL (4.8-10.8)
[2022-12-27 05:42] LABS: Anion Gap 15 (12-20); Blood Urea Nitrogen 14 mg/dL (9-16); Calcium 7.9 mg/dL (8.4-10.2); Carbon Dioxide 22 mmol/L (22-29); Chloride 105 mmol/L (96-108); Creatinine Clr Calc Pharmacy 46.8; Estimated Glomerular Filt Rate > 60; Glucose Random 152 mg/dL (60-115); Sodium 138 mmol/L (135-145)
[2022-12-27 05:44] LABS: Lactic Acid 2.8 mmol/L (0.5-2.0)
[2022-12-27] MEDS: Lactated Ringers 1,000 ML 100 ML IVCONT (06:16)
[2022-12-27 06:31] LABS: Band Neutrophils Percent 11 % (3-5); Large Platelet PRESENT; Lymphocytes Absolute Manual 0.2 X10*3/uL (1.2-4.9); Lymphocytes Percent Manual 72 % (20-40); Monocytes Percent Manual 6 % (2-11); Neutrophils Absolute Manual 0.1 X10*3/uL (2.0-8.3); Neutrophils Percent Manual 11 % (45-73); Ovalocytes 1+ (5-14) /OIF; Platelet Estimate DECREASED (NORMAL); Platelet Morphology Comment NOTED; RBC Morphology NOTED; Smudge Cells PRES
[2022-12-27 06:32] LABS: Dohle Bodies PRESENT
[2022-12-27 07:25] LABS: Reflex Lactate? Lactic Acid Added
--- NOTE | 2022-12-27 07:43 | P.PNHO-ONC_ITS ---
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 How often do you have a drink containing alcohol?: a. Never AUDIT-C Alcohol total score: 0 Currently Displaying Signs/Symptoms of Alcohol Withdrawal: No Tobacco History: Patient Tobacco Use Status: Former Tobacco user Tobacco use type: Cigarette Cigarette Packs Per Day: 1 Cigarettes Per Day: 1 Substance Use History: Use of substances other than those prescribed or required for medical reasons : No Substance Use Type: Amphetamines Substance Use Type: Heroin Currently Displaying Signs/Symptoms of Drug Intoxication Withdrawal: No Healthcare Practices: Cheondoism Healthcare Practices: Jehovah'[employer] Advance Directives: Advance Directives: Yes Advance Directives on File: Yes Advance Directives Date on File: 10/25/22 Homicidal Assessment: Do you have thoughts of harming others: None Do you have a plan to hurt others: No Plan Nutrition Assessment: Recently lost weight without trying: Yes How much weight loss: 2-13 pounds Nutrition Risks: Poor intake 0-25% >4 days Patient : No Occupation Assessmet: service: No Home Medications and Allergies Current Medications: Current Medications Acetaminophen (Acetaminophen 325 Mg Tablet) 650 mg PO Q6H PRN PRN Reason: Pain, Mild (Pain Scale 1-3) Albuterol Sulfate (Albuterol Sulfate 90 Mcg 8 Gm Inhaler) 2 puff INHALE QID PRN PRN Reason: wheezing Albuterol/Ipratropium (Albuterol/Iprat 2.5/0.5mg 3 Ml Ampul.Neb) 3 ml INHALE RQ4H PRN PRN Reason: Shortness of Breath/Wheezing Ascorbic Acid (Ascorbic Acid 500 Mg Tablet) 1,000 mg PO DAILY YO Buspirone HCl (Buspirone Hcl 10 Mg Tablet) 10 mg PO BID YO Last Admin: 12/26/22 22:50 Dose: Not Given Calcium Carbonate/Cholecalciferol (Calcium + Vitamin D 250 Mg Tablet) 500 mg PO BID [facility] Last Admin: 12/26/22 22:50 Dose: Not Given Clonazepam (Clonazepam 0.125 Mg Tab.Rapdis) 0.25 mg PO BID PRN PRN Reason: anxiety attack Last Admin: 12/27/22 05:29 Dose: 0.25 mg Dexamethasone (Dexamethasone 6 Mg Tablet) 6 mg PO DAILY [facility] Docusate Sodium (Docusate Sodium 100 Mg Capsule) 100 mg PO DAILY PRN PRN Reason: Constipation Fluticasone Propionate (Fluticasone Propionate 250 Mcg Blst.W.Dev) 2 puff INHALE RBID [facility] Last Admin: 12/26/22 21:12 Dose: Not Given Fluticasone Propionate (Fluticasone Propionate Nasal 16 Gm [place]) 1 spray NOS TRIL-B DAILY [facility] Lactated Ringer's (Lr) 1,000 mls @ 100 mls/hr IVCONT .Q10H [facility] Last Admin: 12/27/22 06:16 Dose: 100 mls/hr Vancomycin HCl 1,250 mg/ (Sodium Chloride) 250 mls @ 166.667 mls/hr IV Q24H [facility] Fluconazole (Diflucan) 200 mg in 100 mls @ 100 mls/hr IV Q24H [facility] Cefepime HCl 2 gm/ Sodium (Chloride) 50 mls @ 100 mls/hr IV Q8H [facility] Lisinopril (Lisinopril 10 Mg Tablet) 10 mg PO DAILY [facility]; Protocol Melatonin (Melatonin 3 Mg Tablet) 6 mg PO BEDTIME [facility] Last Admin: 12/26/22 22:50 Dose: Not Given Omeprazole (Omeprazole 20 Mg Capsule.Dr) 20 mg PO DAILY@0630 [facility] Last Admin: 12/27/22 05:29 Dose: 20 mg Ondansetron HCl (Ondansetron Hcl 4 Mg/2 Ml Vial) 4 mg IVPUSH Q8H PRN PRN Reason: Nausea and Vomiting Pharmacy Consult (Consult Rx Vancomycin Dosing) 1 each MISCELLANE DAILY PRN PRN Reason: Consult order Senna (Sennosides 8.6 Mg Tablet) 8.6 mg PO BEDTIME PRN PRN Reason: constipation Sodium Chloride (0.9 % Sodium Chloride Flush 3 Ml Syringe) 3 ml IVFLUSH QSHIFT [facility] Last Admin: 12/27/22 00:09 Dose: Not Given Venlafaxine HCl (Venlafaxine Hcl Er 37.5 Mg Cap.Er.24h) 37.5 mg PO DAILY [facility] Home Medications Medication Instructions Recorded Confirmed Type albuterol sulfate 90 mcg/actuation 2 puff inhalation QID PRN wheezing 10/25/22 12/26/22 History aerosol inhaler (Ventolin HFA) alendronate 70 mg tablet 70 mg PO TU 10/25/22 12/26/22 History calcium carbonate 600 mg-vitamin 1 tab PO BID 10/25/22 12/26/22 History D3 10 mcg (400 unit) tablet fluticasone propionate 50 1 spray intranasal DAILY 10/25/22 12/26/22 History mcg/actuation nasal spray,suspension lisinopril 10 mg tablet 10 mg PO DAILY 10/25/22 12/26/22 History melatonin 3 mg tablet 6 mg PO BEDTIME 10/25/22 12/26/22 History methadone 10 mg/mL oral 70 mg PO DAILY 10/25/22 History concentrate (Methadone Intensol) ascorbic acid (vitamin C) 1,000 mg 1,000 mg PO DAILY 12/26/22 12/26/22 History tablet (Vitamin C) buspirone 10 mg tablet 10 mg PO BID 12/26/22 12/26/22 History clonazepam 0.25 mg disintegrating 0.25 mg PO BID PRN anxiety attack 12/26/22 12/26/22 History tablet fluticasone propionate 220 2 puff inhalation BID 12/26/22 12/26/22 History mcg/actuation HFA aerosol inhaler (Flovent HFA) lidocaine-prilocaine 2.5 %-2.5 % 1 appl topical DAILY PRN PRIOR TO 12/26/22 12/26/22 History topical cream PORT USE pantoprazole 40 mg tablet,delayed 40 mg PO DAILY 12/26/22 12/26/22 History release sennosides 8.6 mg tablet (senna) 8.6 mg PO BEDTIME PRN constipation 12/26/22 12/26/22 History venlafaxine 37.5 mg 37.5 mg PO QAM 12/26/22 12/26/22 History capsule,extended release 24 hr Allergies Allergy/AdvReac Type Severity Reaction Status Date / Time elastic Allergy Unknown Uncoded 10/25/22 09:25 Exam Vital signs: Vital Signs Temp 102.6 F H 12/27/22 06:19 Pulse 115 H 12/27/22 04:18 Resp 22 H 12/27/22 04:18 BP 145/61 H 12/27/22 04:18 Pulse Ox 96 12/27/22 04:18 O2 Del Method Room Air 12/27/22 04:18 Intake & Output 12/26/22 12/27/22 12/27/22 18:59 06:59 18:59 Intake Total 1050 / 1430 380 / 1430 Output Total 250 / 250 Balance 1050 / 1180 130 / 1180 Urine Output (Average ml/kg/hr) 0.38 Intake: Intake, Oral Amount 0 / 0 Intake (Blood Product) Amount 280 / 280 Plt Aph Pas Pathreduced(E8343) 280 / 280 Unit [id number] Intake, IV Amount 1050 / 1150 100 / 1150 0.9 % Sodium Chloride 100 ml @ 100 / 100 100 mls/hr IV ONCE ONE Rx#: [id number] Magnesium Sulfate/H2O 2 gm In 50 / 50 50 ml @ 25 mls/hr IV ONCE ONE Rx#:[id number] 0.9 % Sodium Chloride 1,000 ml 1000 / 1000 @ 999 mls/hr IVCONT .Q1H1M [facility] Rx#:[id number] Output: Output, Urine Amount 250 / 250 Other: Number of Incontinent Voids 2 Urine purewick Urine Color Yellow Last Bowel Movement 12/22/22 Weight 52.6 kg 55.3 kg [place] Weight in Grams 75596 Weight 55.3 kg BMI result Body Mass Index 23.8 Data - Labs CBC & Chem 7: 12/27/22 05:09 12/27/22 05:09 Labs: 12/26/22 XR chest 1V Stat 12/26/22 10:44 MR head/brain wo/w con Stat Morphine Sulfate 4 mg IVPUSH ONCE ONE dexAMETHasone sod phosphate [Decadron] 6 mg IVPUSH ONCE ONE ondansetron HCL [Zofran] 4 mg IVPUSH ONCE ONE 12/26/22 10:45 0.9 % Sodium Chloride [Ns] 1,000 ml IVCONT 999 mls/hr 12/26/22 12:00 Basic Metabolic Panel Stat Liver Panel Stat Magnesium Stat 12/26/22 12:30 Magnesium Sulfate/H2O 2 gm in 50 ml IV ONCE 12/26/22 13:09 gadobutroL [Gadavist] 7.5 ml IVPUSH ONCE ONE 12/26/22 13:37 ECG 12 lead EKG Stat EKG Documentation DIRECTED 12/26/22 14:28 levETIRAcetam [Keppra] 500 mg PO ONCE ONE 12/26/22 14:54 0.9 % Sodium Chloride [Ns] 100 ml IV ONCE 12/26/22 15:21 Tbo-Filgrastim [Granix] 300 mcg SUBCUT ONCE ONE 12/26/22 15:27 clonazePAM [KlonoPIN] 2 mg PO ONCE ONE 12/26/22 16:41 Admission Assessment - Modified NOW 12/26/22 20:43 Drug Screen Urine Stat UA CC w/rflx Micro + Cult Stat 12/27/22 04:26 Acetaminophen Supp [Tylenol Supp] 650 mg HI ONCE ONE 12/27/22 05:09 Basic Metabolic Panel DAILY@0600 Complete Blood Count Man Dif Routine Lactic Acid Stat 12/27/22 05:48 0.9 % Sodium Chloride [Ns] 100 ml IV ONCE Laboratory Last Values WBC 0.3 X10*3/uL (4.8-10.8) L* 12/27/22 05:09 RBC 3.42 X10*6/uL (4.20-5.50) L 12/27/22 05:09 Hgb 10.0 g/dl (12.0-16.0) L 12/27/22 05:09 Hct 29.2 % (37.0-47.0) L 12/27/22 05:09 MCV 85.4 fL (80.0-98.0) 12/27/22 05:09 MCH 29.2 pg (27.0-33.0) 12/27/22 05:09 MCHC 34.2 g/dl (31.0-35.0) 12/27/22 05:09 RDW 11.9 % (11.0-16.0) 12/27/22 05:09 Plt Count 13 X10*3/uL (160-400) L* D 12/27/22 05:09 MPV 10.2 fL (9.4-12.3) 12/27/22 05:09 Immature Gran % (Auto) Cancelled 12/27/22 05:09 Neut % (Auto) Cancelled 12/27/22 05:09 Lymph % (Auto) Cancelled 12/27/22 05:09 [place] % (Auto) Cancelled 12/27/22 05:09 Eos % (Auto) Cancelled 12/27/22 05:09 Baso % (Auto) Cancelled 12/27/22 05:09 Lymph # (Auto) Cancelled 12/27/22 05:09 [place] # (Auto) Cancelled 12/27/22 05:09 Eos # (Auto) Cancelled 12/27/22 05:09 Baso # (Auto) Cancelled 12/27/22 05:09 Abs Immat Gran (auto) Cancelled 12/27/22 05:09 Absolute Neuts (auto) Cancelled 12/27/22 05:09 Absolute Nucleated RBC 0.000 X10*3/uL (0.0-0.012) 12/27/22 05:09 Nucleated RBC % (auto) 0.0 /100WBC (0.0-0.2) 12/27/22 05:09 Neutrophils % (Manual) 11 % (45-73) L 12/27/22 05:09 Band Neutrophils % 11 % (3-5) H 12/27/22 05:09 Lymphocytes % (Manual) 72 % (20-40) H 12/27/22 05:09 Monocytes % (Manual) 6 % (2-11) 12/27/22 05:09 Abs Neuts (Manual) 0.1 X10*3/uL (2.0-8.3) L 12/27/22 05:09 Lymphocytes # (Manual) 0.2 X10*3/uL (1.2-4.9) L 12/27/22 05:09 Smudge Cells PRES 12/27/22 05:09 Dohle Bodies PRESENT 12/27/22 05:09 Platelet Estimate DECREASED (NORMAL) 12/27/22 05:09 Large Platelets PRESENT 12/27/22 05:09 Plt Morphology Comment NOTED 12/27/22 05:09 RBC Morphology NOTED 12/27/22 05:09 Ovalocytes 1+ (5-14) /OIF 12/27/22 05:09 Smear Tech's Comments VERIFIED 12/26/22 14:19 Sodium 138 mmol/L (135-145) 12/27/22 05:09 Potassium 4.0 mmol/L (3.3-5.1) 12/27/22 05:09 Chloride 105 mmol/L (96-108) 12/27/22 05:09 Carbon Dioxide 22 mmol/L (22-29) 12/27/22 05:09 Anion Gap 15 (12-20) 12/27/22 05:09 BUN 14 mg/dL (9-16) 12/27/22 05:09 Creatinine 0.91 mg/dL (0.5-1.4) 12/27/22 05:09 Estim Creat Clear Calc 46.8 12/27/22 05:09 Estimated GFR > 60 12/27/22 05:09 Random Glucose 152 mg/dL (60-115) H 12/27/22 05:09 Lactic Acid 2.8 mmol/L (0.5-2.0) H* 12/27/22 05:09 Calcium 7.9 mg/dL (8.4-10.2) L 12/27/22 05:09 Magnesium 1.2 mg/dL (1.6-2.6) L* 12/26/22 12:00 Total Bilirubin 0.6 mg/dL (0.0-1.0) 12/26/22 12:00 Direct Bilirubin 0.2 mg/dL (0.0-0.5) 12/26/22 12:00 AST 26 U/L (5-31) 12/26/22 12:00 ALT 14 U/L (0-31) 12/26/22 12:00 Alkaline Phosphatase 56 U/L (39-117) 12/26/22 12:00 Total Protein 6.4 g/dL (6.5-8.0) L 12/26/22 12:00 Albumin 3.3 g/dL (3.5-5.0) L 12/26/22 12:00 Urine Color Yellow 12/26/22 20:43 Urine Appearance Clear 12/26/22 20:43 Urine pH 6.0 (5.0-9.0) 12/26/22 20:43 Ur Specific [place] <= 1.005 (1.005-1.025) 12/26/22 20:43 Urine Protein Negative mg/dL (Neg-Trace) 12/26/22 20:43 Urine Glucose (UA) Negative mg/dL (Negative) 12/26/22 20:43 Urine Ketones Negative mg/dL (Negative) 12/26/22 20:43 Urine Blood Negative (Negative) 12/26/22 20:43 Urine Nitrite Negative (Negative) 12/26/22 20:43 Ur Leukocyte Esterase Negative (Negative) 12/26/22 20:43 Urine Opiates Screen POSITIVE (Not Detect) H 12/26/22 20:43 Urine Fentanyl Screen POSITIVE (Not Detect) H 12/26/22 20:43 Ur Barbiturates Screen Not Detected (Not Detect) 12/26/22 20:43 Ur Phencyclidine Scrn Not Detected (Not Detect) 12/26/22 20:43 Ur Amphetamines Screen Not Detected (Not Detect) 12/26/22 20:43 U Benzodiazepines Scrn Not Detected (Not Detect) 12/26/22 20:43 Urine Cocaine Screen Not Detected (Not Detect) 12/26/22 20:43 U Marijuana (THC) Screen Not Detected (Not Detect) 12/26/22 20:43 Blood Type A Positive 12/26/22 14:19 Antibody Screen NEGATIVE 12/26/22 14:19 - Imaging Radiologist's impression: ITS Impressions Brain MRI 12/26/22 13:03 IMPRESSION: - Interval postoperative changes following right frontoparietal craniotomy for resection of the previously seen enhancing mass within the subcortical white matter of the right frontal lobe. There is linear enhancement along the periphery of the resection cavity for which follow-up is advised to distinguish between evolving granulation/scar tissue versus residual/recurrent small volume tumor. No definite new remote enhancing lesions however post contrast imaging is very limited due to significant motion artifact. - There is significantly improved edema within the right frontal white matter with decreased mass effect including resolution of previously seen leftward midline shift. Chest X-Ray 12/26/22 23:13 IMPRESSION: Suggestion of mild heterogeneous parenchymal haziness in the right upper lobe, which could reflect developing consolidation in the proper clinical setting. Short-term radiographic follow-up would be helpful. Underlying emphysema noted.
--- NOTE | 2022-12-27 07:44 | P.CNHO_ITS ---
Subjective - Subjective Chief complaint: Headaches Patient: known to practice within the last 3 years Consult date: 12/27/22 Primary Care Provider: SELIN Pratt HPI - Consult Narrative Reason for consult: Pancytopenia/ metastatic lung cancer Narrative: Tari Eaton is a 67 year old female who was diagnosed with recurrence/metastatic squamous cell lung carcinoma in October 2022. She presented with right frontal lobe mass in [place] [facility] was transferred to [facility] where she underwent resection of solitary brain mass, biopsy proved to be squamous cell carcinoma of lung primary. She was briefly in rehab following surgery. She started palliative chemotherapy at [facility]. She received 1st cycle of systemic therapy in the 1st week of December at [facility], carboplatin/paclitaxel with pembrolizumab was administered. She presented [place] [facility] [place] which complaints of severe headache associated with nausea and photophobia. She did not have any fever or chills. Her daughter noticed change in behavior and tremors and was concerned about recurrent brain metastasis. On evaluation in the ED patient was severely neutropenic and thrombocytopenic. MRI of the brain in the ED showing interval postoperative changes following right frontoparietal craniotomy for resection of the previously seen enhancing mass within the subcortical white matter of the right frontal lobe. There is also linear enhancement along the periphery of the resection cavity for which follow-up is advised to distinguish between involving granulation/scar tissue versus residual/recurrent small volume tumor. No new definitive remote enhancing lesions Patient was started on Granix for severe neutropenia. It was ascertained that she did not receive Neulasta after speaking to the daughter who is a nurse at [employer]. Early this morning patient developed high fever and she quickly became hypotensive requiring transfer to the ICU. She is now empiric antibiotics. Blood cultures are pending. Chest x-ray showed haziness in the right upper lobe which could be consolidation. At this time patient is sitting up in bed and having her meal. She is alert and oriented. She says her headaches are now controlled. She denies any chest pain, shortness of breath is at baseline. Review of Systems - Constitutional Reports as per [facility] Medical History: Medical History (Last Reviewed 12/26/22 @ 17:44 by SELIN Benavidez) Emphysema lung GERD (gastroesophageal reflux disease) HTN (hypertension) Metabolic brain disease Opiate dependence 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 Thrombocytopenia Surgical History: Surgical History (Last Reviewed 12/26/22 @ 17:44 by SELIN Benavidez) S/P craniotomy Social History: Social History (Last Reviewed 12/26/22 @ 17:44 by SELIN Benavidez) Living Situation History: Household Members: None Housing: Apartment Alcohol History Details: 1. How often do you have a drink containing alcohol?: a. Never AUDIT-C Alcohol total score: 0 Currently Displaying Signs/Symptoms of Alcohol Withdrawal: No Tobacco History: Patient Tobacco Use Status: Former Tobacco user Tobacco use type: Cigarette Cigarette Packs Per Day: 1 Substance Use History: Use of substances other than those prescribed or required for medical reasons : No Substance Use Type: Amphetamines Substance Use Type: Heroin Currently Displaying Signs/Symptoms of Drug Intoxication Withdrawal: No Healthcare Practices: [employer] Practices: [employer] Advance Directives: Advance Directives: Yes Advance Directives on File: Yes Advance Directives Date on File: 10/25/22 Homicidal Assessment: Do you have thoughts of harming others: None Do you have a plan to hurt others: No Plan Nutrition Assessment: Recently lost weight without trying: Yes How much weight loss: 2-13 pounds Nutrition Risks: Poor intake 0-25% >4 days Patient : No Occupation Assessmet: service: No Home Medications and Allergies Current Medications: Current Medications Acetaminophen (Acetaminophen 325 Mg Tablet) 650 mg PO Q6H PRN PRN Reason: Pain, Mild (Pain Scale 1-3) Albuterol Sulfate (Albuterol Sulfate 90 Mcg 8 Gm Inhaler) 2 puff INHALE QID PRN PRN Reason: wheezing Albuterol/Ipratropium (Albuterol/Iprat 2.5/0.5mg 3 Ml Ampul.Neb) 3 ml INHALE RQ4H PRN PRN Reason: Shortness of Breath/Wheezing Ascorbic Acid (Ascorbic Acid 500 Mg Tablet) 1,000 mg PO DAILY YO Buspirone HCl (Buspirone Hcl 10 Mg Tablet) 10 mg PO BID [facility] Last Admin: 12/26/22 22:50 Dose: Not Given Calcium Carbonate/Cholecalciferol (Calcium + Vitamin D 250 Mg Tablet) 500 mg PO BID YO Last Admin: 12/26/22 22:50 Dose: Not Given Clonazepam (Clonazepam 0.125 Mg Tab.Rapdis) 0.25 mg PO BID PRN PRN Reason: anxiety attack Last Admin: 12/27/22 05:29 Dose: 0.25 mg Dexamethasone (Dexamethasone 6 Mg Tablet) 6 mg PO DAILY [facility] Docusate Sodium (Docusate Sodium 100 Mg Capsule) 100 mg PO DAILY PRN PRN Reason: Constipation Fluticasone Propionate (Fluticasone Propionate 250 Mcg Blst.W.Dev) 2 puff INHALE RBID [facility] Last Admin: 12/26/22 21:12 Dose: Not Given Fluticasone Propionate (Fluticasone Propionate Nasal 16 Gm [place]) 1 spray NOSTRIL-B DAILY [facility] Lactated Ringer's (Lr) 1,000 mls @ 100 mls/hr IVCONT .Q10H [facility] Last Admin: 12/27/22 06:16 Dose: 100 mls/hr Vancomycin HCl 1,250 mg/ (Sodium Chloride) 250 mls @ 166.667 mls/hr IV Q24H [facility] Fluconazole (Diflucan) 200 mg in 100 mls @ 100 mls/hr IV Q24H [facility] Cefepime HCl 2 gm/ Sodium (Chloride) 50 mls @ 100 mls/hr IV Q8H [facility] Lisinopril (Lisinopril 10 Mg Tablet) 10 mg PO DAILY [facility]; Protocol Melatonin (Melatonin 3 Mg Tablet) 6 mg PO BEDTIME [facility] Last Admin: 12/26/22 22:50 Dose: Not Given Omeprazole (Omeprazole 20 Mg Capsule.Dr) 20 mg PO DAILY@0630 [facility] Last Admin: 12/27/22 05:29 Dose: 20 mg Ondansetron HCl (Ondansetron Hcl 4 Mg/2 Ml Vial) 4 mg IVPUSH Q8H PRN PRN Reason: Nausea and Vomiting Pharmacy Consult (Consult Rx Vancomycin Dosing) 1 each MISCELLANE DAILY PRN PRN Reason: Consult order Senna (Sennosides 8.6 Mg Tablet) 8.6 mg PO BEDTIME PRN PRN Reason: constipation Sodium Chloride (0.9 % Sodium Chloride Flush 3 Ml Syringe) 3 ml IVFLUSH QSHIFT [facility] Last Admin: 12/27/22 00:09 Dose: Not Given Venlafaxine HCl (Venlafaxine Hcl Er 37.5 Mg Cap.Er.24h) 37.5 mg PO DAILY [facility] Home Medications Medication Instructions Recorded Confirmed Type albuterol sulfate 90 mcg/actuation 2 puff inhalation QID PRN wheezing 10/25/22 12/26/22 History aerosol inhaler (Ventolin HFA) alendronate 70 mg tablet 70 mg PO TU 10/25/22 12/26/22 History calcium carbonate 600 mg-vitamin 1 tab PO BID 10/25/22 12/26/22 History D3 10 mcg (400 unit) tablet fluticasone propionate 50 1 spray intranasal DAILY 10/25/22 12/26/22 History mcg/actuation nasal spray,suspension lisinopril 10 mg tablet 10 mg PO DAILY 10/25/22 12/26/22 History melatonin 3 mg tablet 6 mg PO BEDTIME 10/25/22 12/26/22 History methadone 10 mg/mL oral 80 mg PO DAILY 10/25/22 12/27/22 History concentrate (Methadone Intensol) ascorbic acid (vitamin C) 1,000 mg 1,000 mg PO DAILY 12/26/22 12/26/22 History tablet (Vitamin C) buspirone 10 mg tablet 10 mg PO BID 12/26/22 12/26/22 History clonazepam 0.25 mg disintegrating 0.25 mg PO BID PRN anxiety attack 12/26/22 12/26/22 History tablet fluticasone propionate 220 2 puff inhalation BID 12/26/22 12/26/22 History mcg/actuation HFA aerosol inhaler (Flovent HFA) lidocaine-prilocaine 2.5 %-2.5 % 1 appl topical DAILY PRN PRIOR TO 12/26/22 12/26/22 History topical cream PORT USE pantoprazole 40 mg tablet,delayed 40 mg PO DAILY 12/26/22 12/26/22 History release sennosides 8.6 mg tablet (senna) 8.6 mg PO BEDTIME PRN constipation 12/26/22 12/26/22 History venlafaxine 37.5 mg 37.5 mg PO QAM 12/26/22 12/26/22 History capsule,extended release 24 hr Allergies Allergy/AdvReac Type Severity Reaction Status Date / Time elastic Allergy Unknown Uncoded 10/25/22 09:25 Physical Exam Vital signs: Vital Signs Temp 102.6 F H 12/27/22 06:19 Pulse 115 H 12/27/22 04:18 Resp 22 H 12/27/22 04:18 BP 145/61 H 12/27/22 04:18 Pulse Ox 96 12/27/22 04:18 O2 Del Method Room Air 12/27/22 04:18 Intake & Output 12/26/22 12/27/22 12/27/22 18:59 06:59 18:59 Intake Total 1050 / 1430 380 / 1430 Output Total 250 / 250 Balance 1050 / 1180 130 / 1180 Urine Output (Average ml/kg/hr) 0.38 Intake: Intake, Oral Amount 0 / 0 Intake (Blood Product) Amount 280 / 280 Plt Aph Pas Pathreduced(E8343) 280 / 280 Unit [id number] Intake, IV Amount 1050 / 1150 100 / 1150 0.9 % Sodium Chloride 100 ml @ 100 / 100 100 mls/hr IV ONCE ONE Rx#: [id number] Magnesium Sulfate/H2O 2 gm In 50 / 50 50 ml @ 25 mls/hr IV ONCE ONE Rx#:[id number] 0.9 % Sodium Chloride 1,000 ml 1000 / 1000 @ 999 mls/hr IVCONT .Q1H1M YO Rx#:[id number] Output: Output, Urine Amount 250 / 250 Other: Number of Incontinent Voids 2 Urine purewick Urine Color Yellow Last Bowel Movement 12/22/22 Weight 52.6 kg 55.3 kg [place] Weight in Grams 61358 Weight 55.3 kg - Constitutional Present: mild distress, thin, cooperative - Routine Neck Exam Present: supple. Absent: lymphadenopathy - Routine Respiratory Exam Present: decreased breath sounds, rhonchi - Routine Cardiovascular Exam Cardiovascular: Present: S1, S2 - Routine Abdominal Exam Present: soft - Routine Extremities Exam Absent: calf tenderness Hem/Onc Consult Result - Labs CBC & Chem 7: 12/27/22 05:09 12/27/22 05:09 Labs: Short CBC 12/26/22 12/27/22 Range/Units 14:19 05:09 WBC 0.3 L* 0.3 L* (4.8-10.8) X10*3/uL Hgb 11.0 L 10.0 L (12.0-16.0) g/dl Hct 31.9 L 29.2 L (37.0-47.0) % Plt Count 8 L* D 13 L* D (160-400) X10*3/uL BMP 12/26/22 12/27/22 12:00 05:09 Sodium 137 138 Potassium 3.9 4.0 Chloride 104 105 Carbon Dioxide 24 22 BUN 16 14 Creatinine 1.09 0.91 Calcium 8.0 L D 7.9 L Liver Function 12/26/22 Range/Units 12:00 Total Bilirubin 0.6 (0.0-1.0) mg/dL Direct Bilirubin 0.2 (0.0-0.5) mg/dL AST 26 (5-31) U/L ALT 14 (0-31) U/L Alkaline Phosphatase 56 (39-117) U/L Albumin 3.3 L (3.5-5.0) g/dL Urine 12/26/22 Range/Units 20:43 Urine Color Yellow Urine Appearance Clear Urine pH 6.0 (5.0-9.0) Ur Specific [place] <= 1.005 (1.005-1.025) Urine Protein Negative (Neg-Trace) mg/dL Urine Glucose (UA) Negative (Negative) mg/dL Assessment and Plan Patient Active problem list reviewed?: Yes (1) Neutropenic fever Status: Acute Assessment and plan: 1. 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 She was was started on palliative systemic therapy with carboplatin, paclitaxel and pembrolizumab in 1st week of December. She presented with headaches, brain imaging with MRI and CT head does not show any acute changes. She has developed neutropenic fever, she received Granix 300 mcg yesterday and unit of platelets for severe thrombocytopenia. She is now on cefepime, vancomycin and fluconazole. Blood cultures are pending. She has become septic and is on pressors in the ICU. I recommend that she continue with Granix 300 mcg subQ daily until ANC is above 1000. Empiric treatment for meningitis is recommended since she recently had brain surgery and is presenting with severe headaches and neutropenic fever. I spoke to Magda on the phone at the patient's bedside and updated her or her mother status. Thank you, will follow. - Time Spent With Patient Time Spent with Patient (in minutes): 30
[2022-12-27] MEDS: Fluticasone Propionate 250 MCG BLST.W.DEV 2 PUFF INHALE (07:51)
[2022-12-27 08:17] LABS: ~Lactic Acid-LAB USE ONLY 4.2 mmol/L (0.5-2.0)
[2022-12-27] MEDS: vancomycin HCL 1,500 MG in 0.9 % Sodium Chloride 500 ML 333.33 MG IV (08:28)
[2022-12-27] MEDS: busPIRone HCl 10 MG TABLET PO (08:33)
[2022-12-27] MEDS: Ascorbic Acid 500 MG TABLET 1000 MG PO (08:33)
[2022-12-27] MEDS: dexAMETHasone 6 MG TABLET PO (08:34)
[2022-12-27] MEDS: Calcium + Vitamin D 250 MG TABLET 500 MG PO (08:35)
[2022-12-27] MEDS: Venlafaxine HCl ER 37.5 MG CAP.ER.24H PO (08:35)
[2022-12-27] MEDS: SODIUM CHLORIDE 1659 ML IV (08:38)
--- NOTE | 2022-12-27 08:55 | MHC.CM.PN ---
CM met with Patient at bedside after addressing IMM with Daughter/HCP/Magda @ [phone], who requested IMM be left at bedside (Patient here with Acute Confusion)a copy has also been placed on the chart.Patient was living alone in an apartment and had [employer] [facility] and Magda was able to keep an eye on her via a camera set up. Magda explains that she works in Oncology and understands Patient's diagnosis and condition and she feels that TEASELER may be in the near future. CM has initiated and will follow for dc planning. PCP/PA is Mavis Godfrey. Patient gets her Methadone from [facility].
--- NOTE | 2022-12-27 09:27 | PHA.PROG ---
Admission Date/Time: December 26, 2022 16:41 Indication: OTHER (SPOKE TO SNOW, FEBRILE NEUTROPENIA) Weight in k.3 kg Adjusted body weight in K.42 [place] body weight in K.684 Obesity Dosing Indication % IBW: NOT OBESE Serum Creatinine - Last 168 Hours 12/26/22 12/27/22 12:00 05:09 Creatinine 1.09 0.91 Estimated CrCl and GFR - Last 168 Hours 12/26/22 12/27/22 12:00 05:09 Estim Creat Clear Calc 36.0 46.8 Estimated GFR 50 > 60 Vancomycin Loading Dose: 2000 X1 Current Vancomycin Dosing Regimen: 1250 MG q24h Vancomycin Monitoring using AUC goal of 400 - 600 range with trough as surrogate marker: 531 Date and Time for next Vancomycin Level to be drawn: 12/29 0700 Pharmacist Comments on Vancomycin Plan: Vancomycin dosing will take advantage of [employer] as a clinical decision support tool that uses Bayesian modeling to calculate individual patient's pharmacokinetic parameters and forecast the patient's drug concentration time course with the target goal AUC 24 range of 400 - 600 mg/L/hr.
[2022-12-27 09:56] LABS: Reflex Lactate? 2 Y
--- NOTE | 2022-12-27 10:09 | HO.PM.IMPN ---
Subjective Subjective Date of Service: 12/27/22 Interval History: Noted this a.m. approximately 0730 patient spiked fever overnight to 104. Lactate drawn cultures drawn and empiric antibiotics started. Patient awake alert and conversant. Voices no complaints Review of Systems Denies chest pain Denies shortness of breath Denies nausea vomiting diarrhea Admits fevers Physical Exam Vital Signs: Vital Signs: Last Vital Signs Temp 100.3 F 12/27/22 07:36 Pulse 92 12/27/22 09:40 Resp 20 12/27/22 07:54 BP 74/41 L 12/27/22 09:40 Pulse Ox 97 12/27/22 07:36 O2 Del Method Room Air 12/27/22 07:36 BMI result Body Mass Index 23.8 Const: Other: Awake alert no acute distress Resp: Other: Clear to auscultation bilaterally no rales rhonchi wheezes Cardio: Other: No S4; positive S1-S2; no S3 murmurs rubs or gallops GI: Other: Soft nontender nondistended normoactive bowel sounds Neuro: Other: Cranial nerves 2-12 grossly intact as tested at bedside. Moving all extremities with equal power. Sensation is intact. Cognition appropriate at this time Extrem: Other: No edema bilaterally Objective Data Active Medications Acetaminophen (Acetaminophen 325 Mg Tablet) 650 mg PO Q6H PRN PRN Reason: Pain, Mild (Pain Scale 1-3) Albuterol Sulfate (Albuterol Sulfate 90 Mcg 8 Gm Inhaler) 2 puff INHALE QID PRN PRN Reason: wheezing Albuterol/Ipratropium (Albuterol/Iprat 2.5/0.5mg 3 Ml Ampul.Neb) 3 ml INHALE RQ4H PRN PRN Reason: Shortness of Breath/Wheezing Ascorbic Acid (Ascorbic Acid 500 Mg Tablet) 1,000 mg PO DAILY COUNTS INCLUDE 234 BEDS AT THE [facility] Last Admin: 12/27/22 08:33 Dose: 1,000 mg Documented By: AUTUMN Buspirone HCl (Buspirone Hcl 10 Mg Tablet) 10 mg PO BID COUNTS INCLUDE 234 BEDS AT THE [facility] Last Admin: 12/27/22 08:33 Dose: 10 mg Documented By: AUTUMN Calcium Carbonate/Cholecalciferol (Calcium + Vitamin D 250 Mg Tablet) 500 mg PO BID COUNTS INCLUDE 234 BEDS AT THE [facility] Last Admin: 12/27/22 08:35 Dose: 500 mg Documented By: AUTUMN Clonazepam (Clonazepam 0.125 Mg Tab.Rapdis) 0.25 mg PO BID PRN PRN Reason: anxiety attack Last Admin: 12/27/22 05:29 Dose: 0.25 mg Documented By: KARMA Dexamethasone (Dexamethasone 6 Mg Tablet) 6 mg PO DAILY COUNTS INCLUDE 234 BEDS AT THE [facility] Last Admin: 12/27/22 08:34 Dose: 6 mg Documented By: AUTUMN Docusate Sodium (Docusate Sodium 100 Mg Capsule) 100 mg PO DAILY PRN PRN Reason: Constipation Fluticasone Propionate (Fluticasone Propionate 250 Mcg Blst.W.Dev) 2 puff INHALE RBID COUNTS INCLUDE 234 BEDS AT THE [facility] Last Admin: 12/27/22 07:51 Dose: 2 puff Documented By: ELENITA Fluticasone Propionate (Fluticasone Propionate Nasal 16 Gm [place]) 1 spray NOSTRIL-B DAILY COUNTS INCLUDE 234 BEDS AT THE [facility] Lactated Ringer's (Lr) 1,000 mls @ 100 mls/hr IVCONT .Q10H COUNTS INCLUDE 234 BEDS AT THE [facility] Last Admin: 12/27/22 06:16 Dose: 100 mls/hr Documented By: KARMA Fluconazole (Diflucan) 200 mg in 100 mls @ 100 mls/hr IV Q24H COUNTS INCLUDE 234 BEDS AT THE [facility] Cefepime HCl 2 gm/ Sodium (Chloride) 50 mls @ 100 mls/hr IV Q12H COUNTS INCLUDE 234 BEDS AT THE [facility] Vancomycin HCl 1,250 mg/ (Sodium Chloride) 250 mls @ 166.667 mls/hr IV Q24H COUNTS INCLUDE 234 BEDS AT THE [facility] Lisinopril (Lisinopril 10 Mg Tablet) 10 mg PO DAILY COUNTS INCLUDE 234 BEDS AT THE [facility]; Protocol Last Admin: 12/27/22 08:36 Dose: Not Given Documented By: AUTUMN Non-Admin Reason: Decreased Blood Pressure Melatonin (Melatonin 3 Mg Tablet) 6 mg PO BEDTIME COUNTS INCLUDE 234 BEDS AT THE [facility] Last Admin: 12/26/22 22:50 Dose: Not Given Documented By: KARMA Non-Admin Reason: patient lethargic Omeprazole (Omeprazole 20 Mg Yudelka.) 20 mg PO DAILY@0630 COUNTS INCLUDE 234 BEDS AT THE [facility] Last Admin: 12/27/22 05:29 Dose: 20 mg Documented By: KARMA Ondansetron HCl (Ondansetron Hcl 4 Mg/2 Ml Vial) 4 mg IVPUSH Q8H PRN PRN Reason: Nausea and Vomiting Pharmacy Consult (Consult Rx Vancomycin Dosing) 1 each MISCELLANE DAILY PRN PRN Reason: Consult order Senna (Sennosides 8.6 Mg Tablet) 8.6 mg PO BEDTIME PRN PRN Reason: constipation Sodium Chloride (0.9 % Sodium Chloride Flush 3 Ml Syringe) 3 ml IVFLUSH QSHIFT COUNTS INCLUDE 234 BEDS AT THE [facility] Last Admin: 12/27/22 08:35 Dose: Not Given Documented By: AUTUMN Non-Admin Reason: IV Running Venlafaxine HCl (Venlafaxine Hcl Er 37.5 Mg Cap.Er.24h) 37.5 mg PO DAILY COUNTS INCLUDE 234 BEDS AT THE [facility] Last Admin: 12/27/22 08:35 Dose: 37.5 mg Documented By: AUTUMN Labs 12/27/22 05:09 12/27/22 05:09 Labs: Laboratory Results - last 24 hr 12/26/22 12/26/22 12/26/22 12:00 14:19 14:19 MCV 84.6 MCH 29.2 MCHC 34.5 RDW 12.1 Plt Count 8 L* D MPV Not Reportable Immature Gran % (Auto) 0.0 Neut % (Auto) 3.3 L Lymph % (Auto) 73.3 H [place] % (Auto) 16.7 H Eos % (Auto) 6.7 H Baso % (Auto) 0.0 Lymph # (Auto) 0.2 L [place] # (Auto) 0.1 Eos # (Auto) 0.0 Baso # (Auto) 0.0 Abs Immat Gran (auto) 0.00 Absolute Neuts (auto) 0.0 L Absolute Nucleated RBC 0.000 Nucleated RBC % (auto) 0.0 Neutrophils % (Manual) Band Neutrophils % Lymphocytes % (Manual) Monocytes % (Manual) Abs Neuts (Manual) Lymphocytes # (Manual) Smudge Cells Dohle Bodies Platelet Estimate Large Platelets Plt Morphology Comment RBC Morphology Ovalocytes Smear Tech's Comments VERIFIED Smear Path Review Anion Gap 13 Estim Creat Clear Calc 36.0 Estimated GFR 50 Random Glucose 67 Lactic Acid Lactic Acid F/U @ 2Hr Calcium 8.0 L D Magnesium 1.2 L* Total Bilirubin 0.6 Direct Bilirubin 0.2 AST 26 ALT 14 Alkaline Phosphatase 56 Total Protein 6.4 L Albumin 3.3 L Urine Color Urine Appearance Urine pH Ur Specific [place] Urine Protein Urine Glucose (UA) Urine Ketones Urine Blood Urine Nitrite Ur Leukocyte Esterase Urine Opiates Screen Urine Fentanyl Screen Ur Barbiturates Screen Ur Phencyclidine Scrn Ur Amphetamines Screen U Benzodiazepines Scrn Urine Cocaine Screen U Marijuana (THC) Screen Blood Type A Positive Antibody Screen NEGATIVE 12/26/22 12/26/22 12/27/22 20:43 20:43 05:09 MCV 85.4 MCH 29.2 MCHC 34.2 RDW 11.9 Plt Count 13 L* D MPV 10.2 Immature Gran % (Auto) Cancelled Neut % (Auto) Cancelled Lymph % (Auto) Cancelled [place] % (Auto) Cancelled Eos % (Auto) Cancelled Baso % (Auto) Cancelled Lymph # (Auto) Cancelled [place] # (Auto) Cancelled Eos # (Auto) Cancelled Baso # (Auto) Cancelled Abs Immat Gran (auto) Cancelled Absolute Neuts (auto) Cancelled Absolute Nucleated RBC 0.000 Nucleated RBC % (auto) 0.0 Neutrophils % (Manual) 11 L Band Neutrophils % 11 H Lymphocytes % (Manual) 72 H Monocytes % (Manual) 6 Abs Neuts (Manual) 0.1 L Lymphocytes # (Manual) 0.2 L Smudge Cells PRES Dohle Bodies PRESENT Platelet Estimate DECREASED Large Platelets PRESENT Plt Morphology Comment NOTED RBC Morphology NOTED Ovalocytes 1+ (5-14) Smear Tech's Comments Smear Path Review Anion Gap Estim Creat Clear Calc Estimated GFR Random Glucose Lactic Acid Lactic Acid F/U @ 2Hr Calcium Magnesium Total Bilirubin Direct Bilirubin AST ALT Alkaline Phosphatase Total Protein Albumin Urine Color Yellow Urine Appearance Clear Urine pH 6.0 Ur Specific [place] <= 1.005 Urine Protein Negative Urine Glucose (UA) Negative Urine Ketones Negative Urine Blood Negative Urine Nitrite Negative Ur Leukocyte Esterase Negative Urine Opiates Screen POSITIVE H Urine Fentanyl Screen POSITIVE H Ur Barbiturates Screen Not Detected Ur Phencyclidine Scrn Not Detected Ur Amphetamines Screen Not Detected U Benzodiazepines Scrn Not Detected Urine Cocaine Screen Not Detected U Marijuana (THC) Screen Not Detected Blood Type Antibody Screen 12/27/22 12/27/22 12/27/22 05:09 05:09 07:48 MCV MCH MCHC RDW Plt Count MPV Immature Gran % (Auto) Neut % (Auto) Lymph % (Auto) [place] % (Auto) Eos % (Auto) Baso % (Auto) Lymph # (Auto) [place] # (Auto) Eos # (Auto) Baso # (Auto) Abs Immat Gran (auto) Absolute Neuts (auto) Absolute Nucleated RBC Nucleated RBC % (auto) Neutrophils % (Manual) Band Neutrophils % Lymphocytes % (Manual) Monocytes % (Manual) Abs Neuts (Manual) Lymphocytes # (Manual) Smudge Cells Dohle Bodies Platelet Estimate Large Platelets Plt Morphology Comment RBC Morphology Ovalocytes Smear Tech's Comments Smear Path Review Anion Gap 15 Estim Creat Clear Calc 46.8 Estimated GFR > 60 Random Glucose 152 H Lactic Acid 2.8 H* Lactic Acid F/U @ 2Hr 4.2 H* Calcium 7.9 L Magnesium Total Bilirubin Direct Bilirubin AST ALT Alkaline Phosphatase Total Protein Albumin Urine Color Urine Appearance Urine pH Ur Specific [place] Urine Protein Urine Glucose (UA) Urine Ketones Urine Blood Urine Nitrite Ur Leukocyte Esterase Urine Opiates Screen Urine Fentanyl Screen Ur Barbiturates Screen Ur Phencyclidine Scrn Ur Amphetamines Screen U Benzodiazepines Scrn Urine Cocaine Screen U Marijuana (THC) Screen Blood Type Antibody Screen Assessment and Plan (1) Sepsis associated hypotension: Status: Acute (2) Neutropenic fever: Status: Acute Plan 67-year-old female with history of hypertension, history of lung cancer s/p left lobectomy 2020, now with 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 1. Acute sepsis with hypotension secondary to neutropenic fever (fever noted at 07:30 this a.m.) -blood cultures x2 drawn along with lactate -empiric vancomycin/cefepime/fluconazole started(0900) -patient's BP soft at 90/70.. . Dropped to 70s within the next 2 hours (patient mentating)... Fluid bolus 30 cc/kilogram initiated -ICU consulted... Dr. Norman accepted transfer -Will rescanned head at Dr. Mejía request Discussed with daughter at bedside who is an RN (Oncology at [facility]). At present patient is full code but daughter has no unrealistic expectations about outcomes. Further decisions about code status will be dictated by patient's course. Time Spent With Patient Time: Total time managing care of this patient today ____ minutes. Quality Stroke Does the patient have a stroke diagnosis?: No VTE Prior VTE?: No VTE Risk Level:: Medical - moderate - high VTE Device Contraindication: Treatment Not Indicated VTE Drug Contraindication: N/A - Med Ordered
[2022-12-27 10:53] LABS: ~Lactic Acid-LAB USE ONLY 3.8 mmol/L (0.5-2.0)
--- NOTE | 2022-12-27 11:16 | PC.NURSE ---
report received from overnight RN. Neutropenic precautions in place. Pt on cooling blanket for temp overnight, rectal probe in place. BP 90/50 HR 91, notified. New orders for IV abx and IVF for sepsis protcol ordered and administered. BP recheck x3 within the hour, see vitals. imaging administrator per JUL. MD to bedside to assess pt, plan to transfer to ICU. Report called to [employer]. [employer] TE[employer] up to floor to transport pt on monitor.
[2022-12-27] MEDS: Phenylephrine HCL 20 MG in 0.9 % Sodium Chloride 250 ML 20.9 MG IVCONT (11:35)
--- NOTE | 2022-12-27 11:43 | HE.PHANOTE ---
RE METHADONE PATIENT GETS 80MG METHADONE FROM [facility]. LAST DOSED 12/23 JOSE LUIS
[2022-12-27] MEDS: methADONE HCl 20 MG/2 ML ORAL.CONC 80 MG PO (12:02)
[2022-12-27] MEDS: cefEPime HCl 2 GM in 0.9 % Sodium Chloride 50 ML IV (12:11)
[2022-12-27] MEDS: Fluconazole in NaCl,Iso-Osm 200 MG/100 ML PIGGYBACK 100 MG IV (12:16)
--- NOTE | 2022-12-27 12:45 | P.CNNE_ITS ---
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 H/O emphysema, htn, history hepatitis C treated with antiviral therapy, depression, GERD, emphysema, opioid dependence on methadone. She is evaluated for severe headache starting in right TMJ and then right head that reed ssince resolved. She also had generalized twitching of whole body without LOC . Has very low magnesium and calcium. She is undergoing palliative chemo immunotherapy with paclitaxel, carboplatin, and pembrolizumab which was started in 12/14.? She states that morning prior to chemo adm inistration, developed severe right-sided headache.? She states the pain starts in the TMJ and then radiates to the right side of the head.? Describes this as a sharp pulsing sensation associated with phonophobia, photophobia, and nausea.? Denies any blurred vision or diplopia, no vomiting. No fevers or chills. Daughter also noted change in behaviors and tremors and is concerned for new brain lesions. She has a severe leukopenia 0.3, RBC 3.77, H/H 11.0/31.9%, platelet count 8.? Renal function normal, electrolyte levels normal.? Magnesium level 1.2.? MRI of the brain shows interval postoperative changes following right frontoparietal craniotomy for resection of the previously seen enhancing mass within the subcortical white matter of the right frontal lobe.? There is also linear enhancement along the periphery of the resection cavity for which follow-up is advised to distinguish between involving granulation/scar tissue versus residual/recurrent small volume tumor.? No new definitive remote enhancing lesions however.? There is significantly improved edema within the frontal white matter with decreased effect including resolution of previously seen leftward midline shift Review of Systems Review of Systems: Denies chest pain Denies shortness of breath Denies nausea vomiting diarrhea Admits fevers Constitutional: Constitutional: Reports as per HPI [facility] Past Medical History Medical History Emphysema lung GERD (gastroesophageal reflux disease) HTN (hypertension) Metabolic brain disease Opiate dependence 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 Thrombocytopenia Surgical History Surgical History S/P craniotomy Social History Social History Household Members: None Housing: Apartment Patient Tobacco Use Status: Former Tobacco user Tobacco use type: Cigarette Cigarette Packs Per Day: 1 Use of substances other than those prescribed or required for medical reasons: No Substance Use Type: Amphetamines and Heroin Currently Displaying Signs/Symptoms of Drug Intoxication Withdrawal: No Confucianist Healthcare Practices: Christianity Advance Directives: Yes Advance Directives on File: Yes Advance Directives Date on File: 10/25/22 Do you have thoughts of harming others: None Do you have a plan to hurt others: No Plan Recently lost weight without trying: Yes How much weight loss: 2-13 pounds Nutrition Risks: Poor intake 0-25% >4 days Patient : No service: No Meds Allergies Allergy/AdvReac Type Severity Reaction Status Date / Time elastic Allergy Unknown Uncoded 10/25/22 09:25 Active Medications: Current Medications Clonazepam (Clonazepam 0.125 Mg Tab.Rapdis) 0.25 mg PO BID PRN PRN Reason: aNXIETY Last Admin: 12/27/22 12:12 Dose: 0.25 mg Fluconazole (Diflucan) 200 mg in 100 mls @ 100 mls/hr IV Q24H [facility] Last Admin: 12/27/22 12:16 Dose: 100 mls/hr Cefepime HCl 2 gm/ Sodium (Chloride) 50 mls @ 100 mls/hr IV Q12H [facility] Last Admin: 12/27/22 12:11 Dose: 100 mls/hr Vancomycin HCl 1,250 mg/ (Sodium Chloride) 250 mls @ 166.667 mls/hr IV Q24H YO Phenylephrine HCl 20 mg/ (Sodium Chloride) 252 mls @ 0 mls/hr IVCONT .Q0M [facility]; Protocol Last Admin: 12/27/22 11:35 Dose: 0.5 mcg/kg/min, 20.9 mls/hr Methadone HCl (Methadone Hcl 20 Mg/2 Ml Oral.Conc) 80 mg PO DAILY [facility] Last Admin: 12/27/22 12:02 Dose: 80 mg Pharmacy Consult (Consult Rx Vancomycin Dosing) 1 each MISCELLANE DAILY PRN PRN Reason: Consult order Home Medications Medication Instructions Recorded Confirmed Last Taken Type albuterol sulfate 90 mcg/actuation 2 puff inhalation QID PRN wheezing 10/25/22 12/26/22 12/26/22 History aerosol inhaler (Ventolin HFA) alendronate 70 mg tablet 70 mg PO TU 10/25/22 12/26/22 12/20/22 History calcium carbonate 600 mg-vitamin 1 tab PO BID 10/25/22 12/26/22 12/26/22 History D3 10 mcg (400 unit) tablet fluticasone propionate 50 1 spray intranasal DAILY 10/25/22 12/26/22 Unknown History mcg/actuation nasal spray,suspension lisinopril 10 mg tablet 10 mg PO DAILY 10/25/22 12/26/22 12/26/22 History melatonin 3 mg tablet 6 mg PO BEDTIME 10/25/22 12/26/22 12/25/22 History methadone 10 mg/mL oral 80 mg PO DAILY 10/25/22 12/27/22 12/23/22 History concentrate (Methadone Intensol) ascorbic acid (vitamin C) 1,000 mg 1,000 mg PO DAILY 12/26/22 12/26/22 12/26/22 History tablet (Vitamin C) buspirone 10 mg tablet 10 mg PO BID 12/26/22 12/26/22 12/26/22 History clonazepam 0.25 mg disintegrating 0.25 mg PO BID PRN anxiety attack 12/26/22 12/26/22 Unknown History tablet fluticasone propionate 220 2 puff inhalation BID 12/26/22 12/26/22 Unknown History mcg/actuation HFA aerosol inhaler (Flovent HFA) lidocaine-prilocaine 2.5 %-2.5 % 1 appl topical DAILY PRN PRIOR TO 12/26/22 12/26/22 12/26/22 History topical cream PORT USE pantoprazole 40 mg tablet,delayed 40 mg PO DAILY 12/26/22 12/26/22 12/26/22 History release sennosides 8.6 mg tablet (senna) 8.6 mg PO BEDTIME PRN constipation 12/26/22 12/26/22 12/26/22 History venlafaxine 37.5 mg 37.5 mg PO QAM 12/26/22 12/26/22 12/26/22 History capsule,extended release 24 hr Physical Exam Vital Signs: Vital Signs: Last Vital Signs Temp 97.8 F 12/27/22 12:26 Pulse 74 12/27/22 12:26 Resp 18 12/27/22 12:26 BP 108/67 12/27/22 12:26 Pulse Ox 99 12/27/22 12:00 O2 Del Method Room Air 12/27/22 12:00 BMI result Body Mass Index 23.8 Const: Other: Awake alert no acute distress Resp: Other: Clear to auscultation bilaterally no rales rhonchi wheezes Cardio: Other: No S4; positive S1-S2; no S3 murmurs rubs or gallops GI: Other: Soft nontender nondistended normoactive bowel sounds Neuro: Other: Cranial nerves 2-12 . Normal speech. Non focal exam Extrem: Other: No edema bilaterally Results Labs 12/27/22 05:09 12/27/22 05:09 Labs: Short CBC 12/26/22 12/27/22 Range/Units 14:19 05:09 WBC 0.3 L* 0.3 L* (4.8-10.8) X10*3/uL Hgb 11.0 L 10.0 L (12.0-16.0) g/dl Hct 31.9 L 29.2 L (37.0-47.0) % Plt Count 8 L* D 13 L* D (160-400) X10*3/uL BMP 12/27/22 05:09 Sodium 138 Potassium 4.0 Chloride 105 Carbon Dioxide 22 BUN 14 Creatinine 0.91 Calcium 7.9 L Urine 12/26/22 Range/Units 20:43 Urine Color Yellow Urine Appearance Clear Urine pH 6.0 (5.0-9.0) Ur Specific [place] <= 1.005 (1.005-1.025) Urine Protein Negative (Neg-Trace) mg/dL Urine Glucose (UA) Negative (Negative) mg/dL Assessment and Plan (1) Tremors of nervous system: Status: Acute Myuscle twitching probably related to hypomagnesemia and hypocalcemia. Reccom. Correction of mag an dcalcium. Continue keppra 500mg bid for now. (2) Metabolic brain disease: Status: Acute (3) Stage 4 malignant neoplasm of lung: Status: Acute Stable post op. F/u MRI with tiffanie in 3 months (4) Neutropenia: Qualifiers: Neutropenia type: secondary to cancer chemotherapy Qualified Code(s): D70.1 - Agranulocytosis secondary to cancer chemotherapy; T45.1X5A - Adverse effect of antineoplastic and immunosuppressive drugs, initial encounter Status: Acute (5) Thrombocytopenia: Status: Acute (6) Hypomagnesemia: Status: Acute (7) Neutropenic fever: Status: Acute Plan 67-year-old female with history of hypertension, history of lung cancer s/p left lobectomy 2020, now with 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 1. Acute sepsis with hypotension secondary to neutropenic fever (fever noted at 07:30 this a.m.) -blood cultures x2 drawn along with lactate -empiric vancomycin/cefepime/fluconazole started(0900) -patient's BP soft at 90/70.. . Dropped to 70s within the next 2 hours (patient mentating)... Fluid bolus 30 cc/kilogram initiated -ICU consulted... Dr. Norman accepted transfer -Will rescanned head at Dr. Mejía request Discussed with daughter at bedside who is an RN (Oncology at [facility]). At present patient is full code but daughter has no unrealistic expectations about outcomes. Further decisions about code status will be dictated by patient's course. Time Spent With Patient Time: Total time managing care of this patient today ____ minutes. Procedures Date of Service Date of Service: 12/27/22
--- NOTE | 2022-12-27 13:30 | P.CONCC_ITS ---
History of Present Illness Data of Consult Service Date: 12/27/22 Requesting physician: George Sanchez Primary Care Provider: SELIN Pratt HPI Reason for consult: sepsis/hypotension 67-year-old female in who has stage IV metastatic lung carcinoma recently had a large metastatic lesion to the right frontal lobe of the brain that was removed at [facility] without consequence apparently had a dose of chemotherapy and was just about 2 weeks ago comes in now with virtually no neutrophils in fact almost no white count at all and while she was up stairs on the floor spiked a temperature to 104 dropped the blood pressure to 70s clearly needed to be covered for a febrile neutropenic episode and eventually did receive cefepime vancomycin and fluconazole with a little bit of a delay and the big issue was maintaining her blood pressure for which the fluid was insufficient so there was a necessity to transfer to the ICU and we placed her on phenylephrine and we titrated up rapidly restored her mean pressures to approximately 70 and systolic pressure to 100 at which point she did awaken and immediately demanding methadone demanding to be able to take off the monitor walk out of the bed and then she demanded to leave the hospital every demand centered around receiving some drug and to satisfy some addiction right down to the demand for long and short acting nicotine products and we even had restored the benzodiazepine that she was on but continue to demand to talk to you conversations that really were he absolutely useless but centered around the [place] demands to leave in no m atter how many times we explained the necessity the requirement of the drugs that she was on and including the fluid in order to maintain her blood pressure which she will not be able to sustain on her own at was absolutely talking to the wall I was disrupted when in the OR putting in a pacemaker in some body for the same useless conversation and the same demands and then ultimately right down to the end of the day obviously this was to leave to probably rendezvous with with another drug on the outside and 1 once again there was after no convincing cut because there was only 1 thing on a mind that was the craving her oxygen saturations were no problem and she was not at all air hungry talk ing in full sentences without the need to take a breath oxygen saturations hanging at around 92% with minimal support so that aspect was fine Review of Systems Review of Systems: Yes all other systems are reviewed and are negative PMFSH Past Medical History Medical History Emphysema lung GERD (gastroesophageal reflux disease) HTN (hypertension) Metabolic brain disease Opiate dependence 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 Thrombocytopenia Surgical History Surgical History S/P craniotomy Social History Social History Household Members: None Housing: Apartment Patient Tobacco Use Status: Former Tobacco user Tobacco use type: Cigarette Cigarette Packs Per Day: 1 Substance Use Type: Amphetamines and Heroin Advance Directives: Yes Advance Directives on File: Yes Advance Directives Date on File: 10/25/22 service: No Meds Allergies Allergy/AdvReac Type Severity Reaction Status Date / Time elastic Allergy Unknown Uncoded 12/28/22 07:03 Active Medications: Current Medications Fluconazole (Diflucan) 200 mg in 100 mls @ 100 mls/hr IV Q24H [facility] Last Admin: 12/27/22 12:16 Dose: 100 mls/hr Cefepime HCl 2 gm/ Sodium (Chloride) 50 mls @ 100 mls/hr IV Q12H YO Last Infusion: 12/27/22 12:49 Dose: Infused Vancomycin HCl 1,250 mg/ (Sodium Chloride) 250 mls @ 166.667 mls/hr IV Q24H YO Phenylephrine HCl 20 mg/ (Sodium Chloride) 252 mls @ 0 mls/hr IVCONT .Q0M YO; Protocol Last Admin: 12/27/22 11:35 Dose: 0.5 mcg/kg/min, 20.9 mls/hr Methadone HCl (Methadone Hcl 20 Mg/2 Ml Oral.Conc) 80 mg PO DAILY YO Last Admin: 12/27/22 12:02 Dose: 80 mg Pharmacy Consult (Consult Rx Vancomycin Dosing) 1 each MISCELLANE DAILY PRN PRN Reason: Consult order Home Medications Medication Instructions Recorded Confirmed Last Taken Type albuterol sulfate 90 mcg/actuation 2 puff inhalation QID PRN wheezing 10/25/22 12/26/22 12/26/22 History aerosol inhaler (Ventolin HFA) alendronate 70 mg tablet 70 mg PO TU 10/25/22 12/26/22 12/20/22 History calcium carbonate 600 mg-vitamin 1 tab PO BID 0612/26/22 12/26/22 History D3 10 mcg (400 unit) tablet fluticasone propionate 50 1 spray intranasal DAILY 10/25/22 12/26/22 Unknown History mcg/actuation nasal spray,suspension lisinopril 10 mg tablet 10 mg PO DAILY 10/25/22 12/26/22 12/26/22 History melatonin 3 mg tablet 6 mg PO BEDTIME 10/25/22 12/26/22 12/25/22 History methadone 10 mg/mL oral 80 mg PO DAILY 10/25/22 12/27/22 12/23/22 History concentrate (Methadone Intensol) ascorbic acid (vitamin C) 1,000 mg 1,000 mg PO DAILY 12/26/22 12/26/22 12/26/22 History tablet (Vitamin C) buspirone 10 mg tablet 10 mg PO BID 12/26/22 12/26/22 12/26/22 History clonazepam 0.25 mg disintegrating 0.25 mg PO BID PRN anxiety attack 12/26/22 12/26/22 Unknown History tablet fluticasone propionate 220 2 puff inhalation BID 12/26/22 12/26/22 Unknown History mcg/actuation HFA aerosol inhaler (Flovent HFA) lidocaine-prilocaine 2.5 %-2.5 % 1 appl topical DAILY PRN PRIOR TO 12/26/22 12/26/22 12/26/22 History topical cream PORT USE pantoprazole 40 mg tablet,delayed 40 mg PO DAILY 12/26/22 12/26/22 12/26/22 History release sennosides 8.6 mg tablet (senna) 8.6 mg PO BEDTIME PRN constipation 12/26/22 12/26/22 12/26/22 History venlafaxine 37.5 mg 37.5 mg PO QAM 12/26/22 12/26/22 12/26/22 History capsule,extended release 24 hr Physical Exam Vital Signs: Vital Signs: Last Vital Signs Temp 97.3 F 12/27/22 12:50 Pulse 87 12/27/22 13:00 Resp 18 12/27/22 12:50 BP 97/56 L 12/27/22 13:00 Pulse Ox 99 12/27/22 13:00 O2 Del Method Room Air 12/27/22 13:00 BMI result Body Mass Index 23.8 vital signs stabilized on the phenylephrine and 0.5 mcg per kg per minute neurologically nonfocal with normal mentation I had her 1st have a stat head CT scan because with 13,000 platelets I was con cerned for a bleed as I was told that she might have been altered initially but the CT scan was clean with no evidence of bleeding abdomen soft no organomegaly absent bilateral breath sounds bedside echo showing normal LV and RV function with no primary valve or pericardial disease Results Labs 12/27/22 05:09 12/27/22 05:09 Labs: Short CBC 12/26/22 12/27/22 Range/Units 14:19 05:09 WBC 0.3 L* 0.3 L* (4.8-10.8) X10*3/uL Hgb 11.0 L 10.0 L (12.0-16.0) g/dl Hct 31.9 L 29.2 L (37.0-47.0) % Plt Count 8 L* D 13 L* D (160-400) X10*3/uL BMP 12/27/22 05:09 Sodium 138 Potassium 4.0 Chloride 105 Carbon Dioxide 22 BUN 14 Creatinine 0.91 Calcium 7.9 L Urine 12/26/22 Range/Units 20:43 Urine Color Yellow Urine Appearance Clear Urine pH 6.0 (5.0-9.0) Ur Specific Chauncey <= 1.005 (1.005-1.025) Urine Protein Negative (Neg-Trace) mg/dL Urine Glucose (UA) Negative (Negative) mg/dL Assessment and Plan (1) Sepsis associated hypotension: Status: Acute (2) Neutropenic fever: Status: Acute (3) Neutropenia: Qualifiers: Neutropenia type: secondary to cancer chemotherapy Qualified Code(s): D70.1 - Agranulocytosis secondary to cancer chemotherapy; T45.1X5A - Adverse effect of antineoplastic and immunosuppressive drugs, initial encounter Status: Acute (4) Thrombocytopenia: Status: Acute (5) Stage 4 malignant neoplasm of lung: Status: Acute (6) Hypomagnesemia: Status: Acute (7) Acute confusion: Status: Acute (8) Midline shift of brain: Status: Acute (9) Brain mass: Status: Acute (10) Vasogenic brain edema: Status: Acute Plan plan was for the can not continued IV maintenance fluid as her IVC was still relatively flat and 4 continue phenylephrine support probably will continue daily the granulocyte colony stimulating factor as well until we have an absolute neutrophil count at least exceeding 500 and maintain the combination of cefepime and vancomycin and fluconazole until white cells are restored and she is afebrile however the personality issue with signing out and you could tell she was absolutely tuning out anything that was set to her about the necessity for the inpatient medications Time Spent With Patient Time: Total time managing care of this patient today _90___ minutes.
--- NOTE | 2022-12-27 17:15 | PC.NURSE ---
Patient transferred to ICU approx 1100 d/t SBP sustaining 70s-80s, patient started on phenylephrine gtt per EMAR. Patient AOx4, agitated and anxious, stating I am getting out of here, tell the doctor I am leaving . MD at bedside to discuss risks of leaving to patient. Patient given PRN Klonapin and methadone. Patient with decreased anxiety and agitation, agreeing to stay in hospital. Phenylephrine gtt titrated off approx 1530, MAPs maintaining 60-65 MD aware. Patient becoming increasingly agitated and anxious again, stating I am really leaving now, get the doctor . MD at bedside to again discuss risks of leaving AMA. AMA paperwork filled with dual RN witness, placed in patient's paper chart. athletic monitor removed, IV removed. Patient portacath to right chest with access extension tubing, accessed this admission. orders to de-access port. notified due to absent heparin flush protocol for port de-accessing, no new orders at this time, de-access port immediately per MD order. Port de-accessed, sterile gauze placed over access site. Patient left unit unaccompanied at 1712.
--- NOTE | 2023-05-29 14:34 | P.DS_ITS ---
DS: Providers Provider Date of Service: 05/29/23 Date of admission: 12/28/22 10:53 Date of discharge: 06/05/23 Primary care physician: SELIN Pratt Consults: 12/28/22 10:58 Consult to Hematology / Oncology Routine Consulting Provider: Eliza Murrell Reason for consultation: Metastatic lung cancer Has provider been notified: No 12/29/22 12:22 Addiction Medicine Routine Consulting Provider: Addiction Covering Reason for consultation: methadone Has provider been notified: Yes DS: Diagnosis Discharge Diagnosis (1) Neutropenic fever: Status: Acute DS: Summary Hospital Course Hospital Course: 67-year-old female with history of hypertension, history of lung cancer s/p left lobectomy 2020, now with 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 sepsis with hypotension secondary to neutropenic fever with metastatic lung cancer, patient treated with iv vancomycin, cefepime and fluconazole blood cultures x2 remains negative,WBC 0.3 on admission improved to 2.7 ,s/p filgastrim in the ED, patient was noted to be significantly hypoxic and was treated with high-flow oxygen as well as 100% non-rebreather mask but patient noted to have no improvement in oxygenation as well as her generalized pain, she was continued on methadone 80 mg and was requiring additional 4 mg of morphine q.2 hours , patient remained hypoxic, anxious, tachypneic and since not responding to maximum treatment case discussed with patient and her daughter Magda Mathis healthcare proxy at bedside and 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 Time Attestation Discharge coordination time: Greater than 30 minutes Quality: Safe Use of Opioids Does Pt have an Active Cancer Diagnosis on the Problem List?: Yes Opioid Measure Date for [facility] Report: 04/29/23 Opioid Measure Time for [facility] Report: 14:36 Quality: Stroke Does the patient have a stroke diagnosis?: No Physical Exam Vital Signs: Vital Signs: Last Vital Signs Temp 98.6 F 01/02/23 11:52 Pulse 90 01/02/23 11:52 Resp 0 L 01/03/23 01:55 BP 110/79 01/02/23 11:52 Pulse Ox 93 01/02/23 11:52 O2 Del Method High Flow Nasal C annula 01/02/23 11:52 O2 Flow Rate 32.3 01/02/23 07:57 FiO2 91.6 01/02/23 07:57 BMI result Body Mass Index 24.1 DS: Data Data Completed and Pending Completed studies during hospitalization [Text1]: Procedures Introduction of Vasopressor into Central Vein, Percutaneous Approach (12/26/22) Transfusion of Nonautologous Platelets into Peripheral Vein, Percutaneous Approach (12/28/22) Transfusion of Nonautologous Red Blood Cells into Peripheral Vein, Percutaneous Approach (12/28/22) Discharge Plan Discharge Date/Time: 01/03/23 01:55 Patient Disposition: Discharge Diagnosis: sepsis due to neutropenia, metastatic lung cancer Referrals: Mavis Godfrey PA [Primary Care Provider] - 1 Week Discharge Medications: No Action alendronate 70 mg tablet 70 mg PO TU melatonin 3 mg tablet 6 mg PO BEDTIME lisinopril 10 mg tablet 10 mg PO DAILY albuterol sulfate [Ventolin HFA] 90 mcg/actuation HFA aerosol inhaler 2 puff inhalation QID PRN (Reason: wheezing) fluticasone propionate 50 mcg/actuation spray,suspension 1 spray intranasal DAILY calcium carbonate-vitamin D3 600 mg-10 mcg (400 unit) tablet 1 tab PO BID methadone [Methadone Intensol] 10 mg/mL Concentrate 80 mg PO DAILY sennosides [senna] 8.6 mg tablet 8.6 mg PO BEDTIME PRN (Reason: constipation) ascorbic acid (vitamin C) [Vitamin C] 1,000 mg tablet 1,000 mg PO DAILY venlafaxine 37.5 mg capsule,extended release 24hr 37.5 mg PO DAILY@0800 lidocaine-prilocaine 2.5-2.5 % cream 1 appl topical DAILY PRN (Reason: PRIOR TO PORT USE) pantoprazole 40 mg tablet,delayed release (DR/EC) 40 mg PO DAILY@0630 buspirone 10 mg tablet 10 mg PO BID clonazepam 0.25 mg tablet,disintegrating 0.25 mg PO BID PRN (Reason: anxiety attack) fluticasone propionate [Flovent HFA] 220 mcg/actuation HFA aerosol inhaler 2 puff INHALATION BID Discharge Date/Time: 01/03/23 01:55
== END 2022-12-27 17:12 | disposition left against medical advice (07) | DRG 190 ==
LOC: HO.ED 15:19 → HO.EDOVER 16:52 → HO.IMC 18:35 → HO.ICU 12-27 10:03
PROVIDERS: Internal Medicine; Admitting Provider Physician Assistant; Emergency Provider Emergency Medicine; PCP Student in an Organized Health Care Education/Training Program; Visit Provider Hospitalist
DX: J43.9 Emphysema, unspecified (principal); A41.9 Sepsis, unspecified organism; C34.90 Malignant neoplasm of unspecified part of unspecified bronchus or lung; F11.20 Opioid dependence, uncomplicated; C79.31 Secondary malignant neoplasm of brain; D61.818 Other pancytopenia; T45.1X5A Adverse effect of antineoplastic and immunosuppressive drugs, initial encounter; R50.81 Fever presenting with conditions classified elsewhere; D70.1 Agranulocytosis secondary to cancer chemotherapy; G43.909 Migraine, unspecified, not intractable, without status migrainosus; F17.210 Nicotine dependence, cigarettes, uncomplicated; E83.42 Hypomagnesemia; Z86.19 Personal history of other infectious and parasitic diseases; Z71.6 Tobacco abuse counseling; Z79.51 Long term (current) use of inhaled steroids; Z79.899 Other long term (current) drug therapy
CPT/HCPCS: 36415; 70450; 70553; 71045; 80048; 80076; 80307; 81003; 83605; 83735; 85007; 85025; 85027; 86850; 86900; 86901; 87040; 93005; 94640; 99285; A9585; J0692; J1100; J1447; J1450; J2270; J2371; J2405; J3371; J3475; J8540; P9073

== ENCOUNTER → 2022-12-26 16:41 | Outpatient (BNV) | payer OTHER, SELFPAY | PROVIDERS: Admitting Provider Physician Assistant; Emergency Provider Emergency Medicine; PCP Student in an Organized Health Care Education/Training Program; Visit Provider Internal Medicine | DX: D70.9 Neutropenia, unspecified (principal); D69.6 Thrombocytopenia, unspecified; C34.90 Malignant neoplasm of unspecified part of unspecified bronchus or lung; G93.89 Other specified disorders of brain | CPT/HCPCS: 99222 ==

== ENCOUNTER → 2022-12-26 16:41 | Outpatient (BNV) | payer OTHER, SELFPAY | PROVIDERS: Admitting Provider Physician Assistant; Emergency Provider Emergency Medicine; PCP Student in an Organized Health Care Education/Training Program; Visit Provider Physician Assistant | DX: C34.90 Malignant neoplasm of unspecified part of unspecified bronchus or lung (principal); G93.41 Metabolic encephalopathy; D70.1 Agranulocytosis secondary to cancer chemotherapy; T45.1X5A Adverse effect of antineoplastic and immunosuppressive drugs, initial encounter; D69.6 Thrombocytopenia, unspecified; E83.42 Hypomagnesemia; A41.9 Sepsis, unspecified organism; I95.9 Hypotension, unspecified; D70.9 Neutropenia, unspecified; R50.81 Fever presenting with conditions classified elsewhere | CPT/HCPCS: 99223; 99233 ==

== ENCOUNTER → 2022-12-26 16:41 | Outpatient (BNV) | payer OTHER, SELFPAY | PROVIDERS: Admitting Provider Physician Assistant; Emergency Provider Emergency Medicine; PCP Student in an Organized Health Care Education/Training Program; Visit Provider Internal Medicine Cardiovascular Disease | DX: A41.9 Sepsis, unspecified organism (principal); I95.9 Hypotension, unspecified; D70.9 Neutropenia, unspecified; R50.81 Fever presenting with conditions classified elsewhere; D70.1 Agranulocytosis secondary to cancer chemotherapy; T45.1X5A Adverse effect of antineoplastic and immunosuppressive drugs, initial encounter; D69.6 Thrombocytopenia, unspecified; C34.90 Malignant neoplasm of unspecified part of unspecified bronchus or lung; E83.42 Hypomagnesemia; R41.0 Disorientation, unspecified; R90.89 Other abnormal findings on diagnostic imaging of central nervous system; G93.89 Other specified disorders of brain | CPT/HCPCS: 99291; 99292 ==

== ENCOUNTER 2022-12-28 06:45 | Inpatient (IN) | payer OTHER, SELFPAY ==
[2022-12-28] VITALS (11 sets, daily range): BP systolic 90–119; BP diastolic 53–78; PULSE 81–847; RESP 20–40; TEMP 36.7–37.8; O2SAT 90–96; BMI 24.1
--- NOTE | ~2022-12-28 | XR_ITS ---
EXAMINATION: XR CHEST CLINICAL INFORMATION: Shortness of breath COMPARISON: Chest x-rays of 12/26/2022, 10/25/2022, chest CT of 10/25/2022 TECHNIQUE: Frontal view of the chest was obtained. FINDINGS: Multiple cardiac leads and wires overlie the chest. CT compatible right-sided Port-A-Cath is in place with the tip projecting over the expected location of the lower SVC. The cardiomediastinal silhouette is stable and normal. Severe changes of emphysema are again noted. Diffusely scattered patchy and interstitial opacities are noted in the right lung, greater in the right upper to midlung zone which are new compared to previous chest CT and chest x-ray of 10/25/2022 and demonstrates interval worsening compared to previous x-ray of 12/26/2022. No evidence of pleural effusions or pneumothorax. Visualized upper abdomen is unremarkable. XR/XR chest 1V IMPRESSION: Severe changes of emphysema are better seen on the previous chest CT. Interval worsening of the right lung airspace and interstitial opacities, greater in the upper and mid lung zone compared to the radius x-rays as detailed above. The findings are concerning for inflammatory or infectious process.
--- NOTE | 2022-12-28 06:55 | ECG_ITS ---
Test Reason : LOW O2 Blood Pressure : / mmHG Vent. Rate : 081 BPM Atrial Rate : 081 BPM P-R Int : 132 ms QRS Dur : 084 ms QT Int : 362 ms P-R-T Axes : 063 026 035 degrees QTc Int : 420 ms Normal sinus rhythm Normal ECG When compared with ECG of 26-DEC-2022 14:47, No significant change was found Referred By: Giselle Horton Electronically Signed By:MUKESH PAREDES
--- NOTE | 2022-12-28 07:08 | ED_ITS ---
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 admitted yesterday for neutro penic fever. She signed out AMA. Now with increasing shortness of breath MD elicited complaint: shortness of breath Onset (ago): day(s) Context: recent illness Timing: constant Severity: moderate Related Data Home Medications Medication Instructions Recorded Confirmed albuterol sulfate 90 mcg/actuation 2 puff inhalation QID PRN wheezing 10/25/22 12/28/22 aerosol inhaler (Ventolin HFA) alendronate 70 mg tablet 70 mg PO TU 10/25/22 12/28/22 calcium carbonate 600 mg-vitamin 1 tab PO BID 10/25/22 12/28/22 D3 10 mcg (400 unit) tablet fluticasone propionate 50 1 spray intranasal DAILY 10/25/22 12/28/22 mcg/actuation nasal spray,suspension lisinopril 10 mg tablet 10 mg PO DAILY 10/25/22 12/28/22 melatonin 3 mg tablet 6 mg PO BEDTIME 10/25/22 12/28/22 methadone 10 mg/mL oral 80 mg PO DAILY 10/25/22 12/27/22 concentrate (Methadone Intensol) ascorbic acid (vitamin C) 1,000 mg 1,000 mg PO DAILY 12/26/22 12/28/22 tablet (Vitamin C) buspirone 10 mg tablet 10 mg PO BID 12/26/22 12/28/22 clonazepam 0.25 mg disintegrating 0.25 mg PO BID PRN anxiety attack 12/26/22 12/28/22 tablet fluticasone propionate 220 2 puff inhalation BID 12/26/22 12/28/22 mcg/actuation HFA aerosol inhaler (Flovent HFA) lidocaine-prilocaine 2.5 %-2.5 % 1 appl topical DAILY PRN PRIOR TO 12/26/22 12/28/22 topical cream PORT USE pantoprazole 40 mg tablet,delayed 40 mg PO DAILY@0630 12/26/22 12/28/22 release sennosides 8.6 mg tablet (senna) 8.6 mg PO BEDTIME PRN constipation 12/26/22 12/28/22 venlafaxine 37.5 mg 37.5 mg PO DAILY@0800 12/26/22 12/28/22 capsule,extended release 24 hr Allergies Allergy/AdvReac Type Severity Reaction Status Date / Time elastic Allergy Unknown Uncoded 12/28/22 07:03 Review of Systems Review of Systems: Yes all other systems are reviewed and are negative Neurologic: Denies Sensory deficit (Neuro) [facility] Past Medical History Medical History Emphysema lung GERD (gastroesophageal reflux disease) HTN (hypertension) Metabolic brain disease Opiate dependence 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 Thrombocytopenia Surgical History S/P craniotomy Social History Social History Household Members: None Housing: Apartment Patient Tobacco Use Status: Former Tobacco user Tobacco use type: Cigarette Cigarette Packs Per Day: 1 Substance Use Type: Amphetamines and Heroin Advance Directives: Yes Advance Directives on File: Yes Advance Directives Date on File: 10/25/22 service: No Physical Exam Vital Signs: Vital Signs: Last Vital Signs Temp 100.1 F 12/28/22 09:09 Pulse 85 12/28/22 09:30 Resp 20 12/28/22 09:30 BP 95/54 L 12/28/22 09:30 Pulse Ox 93 12/28/22 09:30 O2 Del Method Nasal Cannula 12/28/22 09:30 O2 Flow Rate 2 12/28/22 09:30 BMI result Body Mass Index 24.1 Const: Other: cachectic ill appearing Nutritional Appearance: average body habitus Orientation/consciousness: oriented to person and patient oriented x3 Limitations: no limitations HEENT: Head: Yes normal to inspection Ears: external ears normal General nose exam: Normal external nose present Mouth: Normal oral and palatal mucosa present and oropharynx normal Throat: Yes posterior oropharynx normal Eyes: General: appearance normal, both eyes and all related structures Neck: Other: supple Neck: Yes normal visual inspection Chest: Chest palpation & inspection: normal inspection of the chest Resp: Auscultation: clear to auscultation bilaterally Cardio: Jugular venous distension: no JVD Rate: regular rate Rhythm: regular rhythm Heart sounds: S1 normal heart sound present and S2 normal heart sound present GI: Inspection: Yes normal to inspection Palpation (GI): Soft to palpation, nontender and No hepatosplenomegaly present Auscultation: normal bowel sounds : General: Yes no CVA tenderness Back/Spine/Pelvis: Back: no CVA tenderness Skin: General skin exam: no rashes or lesions noted Neuro: Other: right facial droop, old General: oriented to person and patient oriented x3 Motor exam (neuro): 5/5 motor strength present throughout Sensory Exam: No Sensory deficit (Neuro) Extrem: General: Yes normal to inspection Psych: Appearance: grossly normal Course Reevaluation(s) Reevaluation #1: I spent 40 minutes of critical care, with interventions, assessments, speaking to patient, consultants, and family. Time: 08:53 Reevaluation #2: Cell counts have improved since yesterday Time: 08:59 Medications Administered Discontinued Medications Generic Name Dose Route Start Last Admin Trade Name Freq PRN Reason Stop Dose Admin Sodium Chloride 1,794 mls @ 1,794 mls/hr 12/28/22 07:12 12/28/22 09:20 Ns 30 ml/kg infuse over 1 hr (1794 ml) 12/28/22 08:11 Infused IV Infusion .Q1H STA Cefepime HCl 2 gm/ Sodium 50 mls @ 100 mls/hr 12/28/22 07:12 12/28/22 08:55 Chloride IV 12/28/22 07:41 Infused ONCE ONE Infusion Vancomycin HCl 1,250 mg/ 250 mls @ 166.667 mls/hr 12/28/22 07:12 12/28/22 08:55 Sodium Chloride IV 12/28/22 08:41 166.67 mls/hr ONCE ONE Administration Medical Decision Making Differential Diagnosis Differential Diagnoses: The differential diagnosis associated with the presentation includes (neutropenia, pneumonia, thrombocytopenia, metastatic lung cancer) Admission/Observation Consideration of admission/observation: Escalation of care including admission/observation considered (Upon arrival patient considered for admission) Consult Healthcare Provider Management of the patient was discussed with: Hospitalist and Resource Management Planner (oncology) Lab Data MDM Lab Attestation statement: I reviewed the patient's lab results. (thrombocytopenia, neutropenia, lactic acid 2.1 were all noted) 12/28/22 07:52 12/28/22 07:52 Labs: Lab Results 12/28/22 12/28/22 12/28/22 Range/Units 07:52 07:52 07:52 WBC 1.5 L (4.8-10.8) X10*3/uL RBC 2.85 L (4.20-5.50) X10*6/uL Hgb 8.3 L (12.0-16.0) g/dl Hct 24.3 L (37.0-47.0) % MCV 85.3 (80.0-98.0) fL MCH 29.1 (27.0-33.0) pg MCHC 34.2 (31.0-35.0) g/dl RDW 12.3 (11.0-16.0) % Plt Count 21 L D (160-400) X10*3/uL MPV 12.8 H (9.4-12.3) fL Immature Gran % (Auto) Cancelled Neut % (Auto) Cancelled Lymph % (Auto) Cancelled [place] % (Auto) Cancelled Eos % (Auto) Cancelled Baso % (Auto) Cancelled Lymph # (Auto) Cancelled [place] # (Auto) Cancelled Eos # (Auto) Cancelled Baso # (Auto) Cancelled Abs Immat Gran (auto) Cancelled Absolute Neuts (auto) Cancelled Absolute Nucleated RBC 0.000 (0.0-0.012) X10*3/uL Nucleated RBC % (auto) 0.0 (0.0-0.2) /100WBC Neutrophils % (Manual) 56 (45-73) % Band Neutrophils % 11 H (3-5) % Lymphocytes % (Manual) 29 (20-40) % Monocytes % (Manual) 4 (2-11) % Abs Neuts (Manual) 1.0 L (2.0-8.3) X10*3/uL Lymphocytes # (Manual) 0.4 L (1.2-4.9) X10*3/uL Monocytes # (Manual) 0.1 (0.1-1.2) X10*3/uL Dohle Bodies PRESENT Platelet Estimate DECREASED (NORMAL) Plt Morphology Comment NORMAL RBC Morphology NOTED [place] Cells 1+ (0-2) /OIF Sodium 141 (135-145) mmol/L Potassium 3.3 (3.3-5.1) mmol/L Chloride 108 (96-108) mmol/L Carbon Dioxide 24 (22-29) mmol/L Anion Gap 12 (12-20) BUN 15 (9-16) mg/dL Creatinine 0.72 (0.5-1.4) mg/dL Estim Creat Clear Calc 59.9 Estimated GFR > 60 Random Glucose 94 (60-115) mg/dL Lactic Acid (0.5-2.0) mmol/L Calcium 7.3 L D (8.4-10.2) mg/dL Magnesium 1.0 L* (1.6-2.6) mg/dL Total Bilirubin 0.6 (0.0-1.0) mg/dL AST 19 (5-31) U/L ALT 11 (0-31) U/L Alkaline Phosphatase 48 (39-117) U/L Troponin I High Sens (<3.5-17.0) ng/L B-Natriuretic Peptide 622 H (<100) pg/mL Total Protein 5.5 L (6.5-8.0) g/dL Albumin 2.8 L (3.5-5.0) g/dL COVID-19 (MELONIE) (Negative) COVID-19 Clin Com Blood Type Antibody Screen 12/28/22 12/28/22 12/28/22 Range/Units 07:52 07:52 07:55 WBC (4.8-10.8) X10*3/uL RBC (4.20-5.50) X10*6/uL Hgb (12.0-16.0) g/dl Hct (37.0-47.0) % MCV (80.0-98.0) fL MCH (27.0-33.0) pg MCHC (31.0-35.0) g/dl RDW (11.0-16.0) % Plt Count (160-400) X10*3/uL MPV (9.4-12.3) fL Immature Gran % (Auto) Neut % (Auto) Lymph % (Auto) [place] % (Auto) Eos % (Auto) Baso % (Auto) Lymph # (Auto) [place] # (Auto) Eos # (Auto) Baso # (Auto) Abs Immat Gran (auto) Absolute Neuts (auto) Absolute Nucleated RBC (0.0-0.012) X10*3/uL Nucleated RBC % (auto) (0.0-0.2) /100WBC Neutrophils % (Manual) (45-73) % Band Neutrophils % (3-5) % Lymphocytes % (Manual) (20-40) % Monocytes % (Manual) (2-11) % Abs Neuts (Manual) (2.0-8.3) X10*3/uL Lymphocytes # (Manual) (1.2-4.9) X10*3/uL Monocytes # (Manual) (0.1-1.2) X10*3/uL Dohle Bodies Platelet Estimate (NORMAL) Plt Morphology Comment RBC Morphology [place] Cells /OIF Sodium (135-145) mmol/L Potassium (3.3-5.1) mmol/L Chloride (96-108) mmol/L Carbon Dioxide (22-29) mmol/L Anion Gap (12-20) BUN (9-16) mg/dL Creatinine (0.5-1.4) mg/dL Estim Creat Clear Calc Estimated GFR Random Glucose (60-115) mg/dL Lactic Acid 2.1 H* (0.5-2.0) mmol/L Calcium (8.4-10.2) mg/dL Magnesium (1.6-2.6) mg/dL Total Bilirubin (0.0-1.0) mg/dL AST (5-31) U/L ALT (0-31) U/L Alkaline Phosphatase (39-117) U/L Troponin I High Sens 10.9 (<3.5-17.0) ng/L B-Natriuretic Peptide (<100) pg/mL Total Protein (6.5-8.0) g/dL Albumin (3.5-5.0) g/dL COVID-19 (MELONIE) (Negative) COVID-19 Clin Com Blood Type A Positive Antibody Screen NEGATIVE 12/28/22 Range/Units 09:16 WBC (4.8-10.8) X10*3/uL RBC (4.20-5.50) X10*6/uL Hgb (12.0-16.0) g/dl Hct (37.0-47.0) % MCV (80.0-98.0) fL MCH (27.0-33.0) pg MCHC (31.0-35.0) g/dl RDW (11.0-16.0) % Plt Count (160-400) X10*3/uL MPV (9.4-12.3) fL Immature Gran % (Auto) Neut % (Auto) Lymph % (Auto) [place] % (Auto) Eos % (Auto) Baso % (Auto) Lymph # (Auto) [place] # (Auto) Eos # (Auto) Baso # (Auto) Abs Immat Gran (auto) Absolute Neuts (auto) Absolute Nucleated RBC (0.0-0.012) X10*3/uL Nucleated RBC % (auto) (0.0-0.2) /100WBC Neutrophils % (Manual) (45-73) % Band Neutrophils % (3-5) % Lymphocytes % (Manual) (20-40) % Monocytes % (Manual) (2-11) % Abs Neuts (Manual) (2.0-8.3) X10*3/uL Lymphocytes # (Manual) (1.2-4.9) X10*3/uL Monocytes # (Manual) (0.1-1.2) X10*3/uL Dohle Bodies Platelet Estimate (NORMAL) Plt Morphology Comment RBC Morphology [place] Cells /OIF Sodium (135-145) mmol/L Potassium (3.3-5.1) mmol/L Chloride (96-108) mmol/L Carbon Dioxide (22-29) mmol/L Anion Gap (12-20) BUN (9-16) mg/dL Creatinine (0.5-1.4) mg/dL Estim Creat Clear Calc Estimated GFR Random Glucose (60-115) mg/dL Lactic Acid (0.5-2.0) mmol/L Calcium (8.4-10.2) mg/dL Magnesium (1.6-2.6) mg/dL Total Bilirubin (0.0-1.0) mg/dL AST (5-31) U/L ALT (0-31) U/L Alkaline Phosphatase (39-117) U/L Troponin I High Sens (<3.5-17.0) ng/L B-Natriuretic Peptide (<100) pg/mL Total Protein (6.5-8.0) g/dL Albumin (3.5-5.0) g/dL COVID-19 (MELONIE) Negative (Negative) COVID-19 Clin Com See Note Blood Type Antibody Screen Independent Interpretation I performed an independent interpretation of an: EKG (sinus [address] or twave changes) and Plain X-Ray (right sided infiltrate worse than yesterday) Independent Historian Clinical information obtained from an independent historian. History obtained from or confirmed by: Other (daughter) External Record Review External record reviewed: Outpatient record Tests considered The following testing was considered but not selected: Ct of chest was considered Chronic Conditions Patient?s care impacted by: Other (metastatic cancer) Social Determinants Patient?s care significantly limited by Social Determinants of Health including: Alcoholism and drug addiction in family Discharge Plan Discharge Clinical Impression: Neutropenia, Thrombocytopenia, Neutropenic fever, Pneumonia Patient Disposition: Admitted As Inpatient
[2022-12-28] MEDS: cefEPime HCl 2 GM in 0.9 % Sodium Chloride 50 ML IV (08:03)
[2022-12-28 08:05] LABS: Hematocrit 24.3 % (37.0-47.0); Hemoglobin 8.3 g/dl (12.0-16.0); Mean Corpuscular HGB Conc 34.2 g/dl (31.0-35.0); Mean Corpuscular Hemoglobin 29.1 pg (27.0-33.0); Mean Corpuscular Volume 85.3 fL (80.0-98.0); Mean Platelet Volume 12.8 fL (9.4-12.3); Red Blood Count 2.85 X10*6/uL (4.20-5.50); Red Cell Distribution Width 12.3 % (11.0-16.0)
[2022-12-28 08:08] LABS: Platelet Count 21 X10*3/uL (160-400); WBC ABN SCTR FOR CBC 1
[2022-12-28 08:19] LABS: Alanine Aminotransferase 11 U/L (0-31); Albumin Level 2.8 g/dL (3.5-5.0); Alkaline Phosphatase 48 U/L (39-117); Anion Gap 12 (12-20); Aspartate Amino Transferase 19 U/L (5-31); Bilirubin Total 0.6 mg/dL (0.0-1.0); Blood Urea Nitrogen 15 mg/dL (9-16); Calcium 7.3 mg/dL (8.4-10.2); Carbon Dioxide 24 mmol/L (22-29); Chloride 108 mmol/L (96-108); Creatinine Clr Calc Pharmacy 59.9; Estimated Glomerular Filt Rate > 60; Glucose Random 94 mg/dL (60-115); Lactic Acid 2.1 mmol/L (0.5-2.0); Potassium 3.3 mmol/L (3.3-5.1); Sodium 141 mmol/L (135-145); Total Protein 5.5 g/dL (6.5-8.0)
[2022-12-28 08:24] LABS: B Type Natriuretic Peptide 622 pg/mL (<100)
[2022-12-28 08:25] LABS: Troponin-I High Sensitivity 10.9 ng/L (<3.5-17.0)
[2022-12-28] MEDS: vancomycin HCL 1,250 MG in 0.9 % Sodium Chloride 250 ML 166.67 MG IV (08:55)
[2022-12-28 08:57] LABS: Neutrophils Percent Manual 56 % (45-73)
[2022-12-28 08:58] LABS: Band Neutrophils Percent 11 % (3-5); Lymphocytes Percent Manual 29 % (20-40); Monocytes Percent Manual 4 % (2-11)
[2022-12-28 08:59] LABS: Burr Cells 1+ (0-2) /OIF; Dohle Bodies PRESENT; Platelet Estimate DECREASED (NORMAL); Platelet Morphology Comment NORMAL; RBC Morphology NOTED
[2022-12-28 09:01] LABS: Lymphocytes Absolute Manual 0.4 X10*3/uL (1.2-4.9); Monocytes Absolute Manual 0.1 X10*3/uL (0.1-1.2); White Blood Count 1.5 X10*3/uL (4.8-10.8)
--- NOTE | 2022-12-28 09:14 | PHA.MEDREC ---
Addendum entered by Arie Suarez 12/28/22 09:16: Patient reported to Teresa ([facility]) that methadone is taken from [facility] methadone clinic. Original Note: Pharmacy Consult ? Medication Reconciliation Pharmacy has completed the medication reconciliation. Patient recently admitted 12/26/22 and med rec was done by Teresa [facility]. Used med record and claim history to confirm.
--- NOTE | 2022-12-28 09:14 | PC.NURSE ---
late entry - pt left AMA yesterday, returning today for increasing shortness of breath and low o2. daughter at bedside stating pt's oxygen dropped to the high 70's. history of lung CA with mets to brain. pt maintaining oxygen levels 88-95% on room air, placed on 2L.
--- NOTE | 2022-12-28 09:17 | PC.NURSE ---
rectal temperature obtained 100.1. pt sleeping off and on in room. covid swab obtained per family request. leoncioo infusing.
--- NOTE | 2022-12-28 09:25 | PC.NURSE ---
hospitalist at bedside for evaluation.
[2022-12-28 09:41] LABS: IDNOW Serial# BCCEAD1C
[2022-12-28 09:42] LABS: COVID-19 Test Negative (Negative)
[2022-12-28 10:01] LABS: Reflex Lactate? Lactic Acid Added
[2022-12-28] MEDS: Magnesium Sulfate/H2O 2 GM/50 ML PIGGYBACK IV (10:43)
[2022-12-28] MEDS: 0.9 % Sodium Chloride 500 ML 999 ML IV (10:44)
[2022-12-28 11:10] LABS: ~Lactic Acid-LAB USE ONLY 1.6 mmol/L (0.5-2.0)
--- NOTE | 2022-12-28 11:24 | MHC.CLN ---
NUTRITION ADDED NEUTROPENIC PRECAUTIONS TO DIET ORDER.
--- NOTE | 2022-12-28 12:17 | PHA.PROG ---
Admission Date/Time: December 28, 2022 10:53 Indication: OTHER Weight in k.8 kg Adjusted body weight in K.98 [place] body weight in K.1 Obesity Dosing Indication % IBW 24.1: Serum Creatinine - Last 168 Hours 12/28/22 07:52 Creatinine 0.72 Estimated CrCl and GFR - Last 168 Hours 12/28/22 07:52 Estim Creat Clear Calc 59.9 Estimated GFR > 60 Vancomycin Loading Dose: 1250 MG Current Vancomycin Dosing Regimen: 750 Q12 Vancomycin Monitoring using AUC goal of 400 - 600 range with trough as surrogate marker:550 Date and Time for next Vancomycin Level to be drawn: 12/29 @0600 Pharmacist Comments on Vancomycin Plan: PT WAS HERE ON 12/27 AND GIVEN LOAD OF 1500 MG AND DISCHARGED. CAME BACK 12/28 AND GIVEN NEW LOAD OF 1250 MG ALMOST EXACTLY 24 HOURS LATER. WILL OBTAIN LEVEL 12/29 @0600 TO ENSURE PROPER DOSING AND SAFETY. Vancomycin dosing will take advantage of ROVOP as a clinical decision support tool that uses Bayesian modeling to calculate individual patient's pharmacokinetic parameters and forecast the patient's drug concentration time course with the target goal AUC 24 range of 400 - 600 mg/L/hr.
[2022-12-28] MEDS: Morphine Sulfate 4 MG/ML CARTRIDGE IVPUSH ×2 (13:28→17:44)
[2022-12-28] MEDS: Albuterol Sulfate 2.5 MG, Albuterol/Iprat 2.5/0.5MG 3 ML 3 ML INHALE (13:40)
[2022-12-28] MEDS: Piperacillin Sodium/Tazobactam 4.5 GM in 0.9 % Sodium Chloride 100 ML IV ×2 (15:48→23:54)
[2022-12-28] MEDS: 0.9 % Sodium Chloride 1,000 ML 100 ML IVCONT ×2 (15:49→19:00)
[2022-12-28] MEDS: Nicotine 14 MG PATCH.TD24 TRANSDERMA (15:49)
[2022-12-28] MEDS: Enoxaparin Sodium 40 MG/0.4 ML SYRINGE SUBCUT (15:49)
--- NOTE | 2022-12-28 16:19 | PM.HEMONCPN ---
Medical Summary - Medical Summary Date of Service: 12/28/22 Chief complaint: SOB Primary Care Provider: SELIN Pratt Interval History Interval history: Patient readmitted, now which shortness of breath. She was in the intensive care unit on pressors yesterday for neutropenic fever and hypotension/sepsis. She left AMA, her daughter brought her back today to the emergency department because of worsening shortness of breath. 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 How often do you have a drink containing alcohol?: a. Never AUDIT-C Alcohol total score: 0 Tobacco History: Patient Tobacco Use Status: Current everyday Tobacco Tobacco use type: Cigarette Cigarette Packs Per Day: 1 Smoked in Last 30 Days: Yes Patient Interested in Nicotine Replacement: Yes Substance Use History: Use of substances other than those prescribed or required for medical reasons: No Substance Use Type: Heroin Substance Use Type: Amphetamines Domestic Abuse History: Have you been hit, kicked, punched, or otherwise hurt by someone within the past year? If so, by whom?: No Do you feel safe in your current relationship?: No Current Relationship Is there a partner from a previous relationship who is making you feel unsafe now?: No Are you made to feel afraid or neglected: No Advance Directives: Advance Directives: Yes Advance Directives on File: Yes Advance Directives Date on File: 10/25/22 Homicidal Assessment: Do you have thoughts of harming others: Vague Do you have a plan to hurt others: No Plan Nutrition Assessment: Recently lost weight without trying: Yes How much weight loss: 2-13 pounds Eating poorly because of decreased appetite: Yes Nutrition screen score: 4 Patient : No Occupation Assessmet: service: No Home Medications and Allergies Current Medications: Current Medications Acetaminophen (Acetaminophen 325 Mg Tablet) 650 mg PO Q6H PRN PRN Reason: Pain, Mild (Pain Scale 1-3) Al Hydroxide/Mg Hydroxide (Magnesium Hydrox/Alum Hydrox 30 Ml Oral.Susp) 30 ml PO Q4H PRN PRN Reason: Heartburn/Nausea Enoxaparin Sodium (Enoxaparin Sodium 40 Mg/0.4 Ml Syringe) 40 mg SUBCUT Q24H [facility] Last Admin: 12/28/22 15:49 Dose: 40 mg Sodium Chloride (Ns) 1,000 mls @ 100 mls/hr IVCONT .Q10H [facility] Last Admin: 12/28/22 15:49 Dose: 100 mls/hr Piperacillin Sod/Tazobactam (Sod 4.5 gm/ Sodium Chloride) 100 mls @ 200 mls/hr IV Q6H [facility] Last Admin: 12/28/22 15:48 Dose: 200 mls/hr Fluconazole (Diflucan) 200 mg in 100 mls @ 100 mls/hr IV Q24H YO Vancomycin HCl 750 mg/ Sodium (Chloride) 265 mls @ 265 mls/hr IV Q12H [facility] Morphine Sulfate (Morphine Sulfate 4 Mg/Ml Cartridge) 4 mg IVPUSH Q3H PRN; Protocol PRN Reason: Pain, Moderate(Pain Scale 4-6) Last Admin: 12/28/22 13:28 Dose: 4 mg Nicotine (Nicotine 14 Mg Patch.Td24) 14 mg TRANSDERMA DAILY [facility] Last Admin: 12/28/22 15:49 Dose: 14 mg Pharmacy Consult (Consult Rx Vancomycin Dosing) 1 each MISCELLANE DAILY PRN PRN Reason: Consult order Sodium Chloride (0.9 % Sodium Chloride Flush 3 Ml Syringe) 3 ml IVFLUSH QSHIFT [facility] Home Medications Medication Instructions Recorded Confirmed Type albuterol sulfate 90 mcg/actuation 2 puff inhalation QID PRN wheezing 10/25/22 12/28/22 History aerosol inhaler (Ventolin HFA) alendronate 70 mg tablet 70 mg PO TU 10/25/22 12/28/22 History calcium carbonate 600 mg-vitamin 1 tab PO BID 10/25/22 12/28/22 History D3 10 mcg (400 unit) tablet fluticasone propionate 50 1 spray intranasal DAILY 10/25/22 12/28/22 History mcg/actuation nasal spray,suspension lisinopril 10 mg tablet 10 mg PO DAILY 10/25/22 12/28/22 History melatonin 3 mg tablet 6 mg PO BEDTIME 10/25/22 12/28/22 History methadone 10 mg/mL oral 80 mg PO DAILY 10/25/22 12/27/22 History concentrate (Methadone Intensol) ascorbic acid (vitamin C) 1,000 mg 1,000 mg PO DAILY 12/26/22 12/28/22 History tablet (Vitamin C) buspirone 10 mg tablet 10 mg PO BID 12/26/22 12/28/22 History clonazepam 0.25 mg disintegrating 0.25 mg PO BID PRN anxiety attack 12/26/22 12/28/22 History tablet fluticasone propionate 220 2 puff inhalation BID 12/26/22 12/28/22 History mcg/actuation HFA aerosol inhaler (Flovent HFA) lidocaine-prilocaine 2.5 %-2.5 % 1 appl topical DAILY PRN PRIOR TO 12/26/22 12/28/22 History topical cream PORT USE pantoprazole 40 mg tablet,delayed 40 mg PO DAILY@0630 12/26/22 12/28/22 History release sennosides 8.6 mg tablet (senna) 8.6 mg PO BEDTIME PRN constipation 12/26/22 12/28/22 History venlafaxine 37.5 mg 37.5 mg PO DAILY@0800 12/26/22 12/28/22 History capsule,extended release 24 hr Allergies Allergy/AdvReac Type Severity Reaction Status Date / Time elastic Allergy Unknown Uncoded 12/28/22 07:03 Exam Vital signs: Vital Signs Temp 98.4 F 12/28/22 16:00 Pulse 95 12/28/22 16:00 Resp 26 H 12/28/22 16:00 BP 111/62 12/28/22 16:00 Pulse Ox 90 L 12/28/22 16:00 O2 Del Method Nasal Cannula 12/28/22 16:00 O2 Flow Rate 2 12/28/22 12:41 Intake & Output 12/27/22 12/28/22 12/28/22 18:59 06:59 18:59 Intake Total 2644 / 2644 Balance 2644 / 2644 Intake: Intake, IV Amount 2644 / 2644 0.9 % Sodium Chloride 1,794 ml 1794 / 1794 @ 1794 mls/hr IV .Q1H [facility] Rx#: [id number] 0.9 % Sodium Chloride 500 ml @ 500 / 500 999 mls/hr IV .Q31M YO Rx#: [id number] Magnesium Sulfate/H2O 2 gm In 50 / 50 50 ml @ 25 mls/hr IV ONCE ONE Rx#:[id number] cefEPime HCl 2 gm In 0.9 % 50 / 50 Sodium Chloride 50 ml @ 100 mls /hr IV ONCE ONE Rx#:[id number] vancomycin HCL 1,250 mg In 0.9 250 / 250 % Sodium Chloride 250 ml @ 166. 667 mls/hr IV ONCE ONE Rx#: [id number] Other: Weight 59.8 kg Weight 59.8 kg BMI result Body Mass Index 24.1 - Constitutional Present: moderate distress, thin, cachectic, chronically ill appearing - Routine HEENT Exam Eye: Present: normal appearance - Routine Neck Exam Absent: lymphadenopathy - Routine Respiratory Exam Present: accessory muscle use, decreased breath sounds - Routine Cardiovascular Exam Cardiovascular: Present: S1, S2 Data - Labs CBC & Chem 7: 12/28/22 07:52 12/28/22 07:52 Labs: 12/28/22 06:55 ECG 12 lead EKG Stat EKG Documentation DIRECTED 12/28/22 06:56 XR chest 1V Stat 12/28/22 07:12 0.9 % Sodium Chloride [Ns] 1,794 ml IV 1,794 mls/hr Vancomycin Consult Rx Dosing [Consult Rx Vancomycin Dosing] 1 each MISCELLANE DAILY PRN cefEPime HCl [Maxipime] 2 gm 0.9 % Sodium Chloride [Ns] 50 ml IV ONCE vancomycin HCL 1,250 mg 0.9 % Sodium Chloride [Ns] 250 ml IV ONCE 12/28/22 07:21 Fluconazole in NaCl,Iso-Osm [Diflucan] 200 mg in 100 ml IV ONCE 12/28/22 07:52 BNP [B Type Natriuretic Peptide] Stat Complete Blood Count Man Dif Stat Comprehensive Met. Panel Stat Lactic Acid Stat Magnesium Stat Troponin-I High Sensitivity Stat 12/28/22 07:55 Type and Screen Stat 12/28/22 08:01 cefEPime HCl [Maxipime] 2 gm IV .STK-MED ONE 12/28/22 08:26 Magnesium Sulfate/H2O 2 gm in 50 ml IV ONCE 12/28/22 08:49 vancomycin HCL 1,250 mg IV .STK-MED ONE 12/28/22 09:00 0.9 % Sodium Chloride [Ns] 500 ml IV 999 mls/hr 12/28/22 09:16 COVID-19 ID NOW ([place]) Stat 12/28/22 10:46 ~Lactic Acid-LAB USE ONLY Stat 12/28/22 13:30 Albuterol Sulfate [Ventolin] 2.5 mg Albuterol/Iprat 2.5/0.5MG 3 ML [Duoneb] 3 ml 3.5 mL INHALE ONCE 12/28/22 13:40 Albuterol/Iprat 2.5/0.5MG 3 ML [Duoneb] 3 ml INHALE .STK-MED ONE Laboratory Last Values WBC 1.5 X10*3/uL (4.8-10.8) L 12/28/22 07:52 RBC 2.85 X10*6/uL (4.20-5.50) L 12/28/22 07:52 Hgb 8.3 g/dl (12.0-16.0) L 12/28/22 07:52 Hct 24.3 % (37.0-47.0) L 12/28/22 07:52 MCV 85.3 fL (80.0-98.0) 12/28/22 07:52 MCH 29.1 pg (27.0-33.0) 12/28/22 07:52 MCHC 34.2 g/dl (31.0-35.0) 12/28/22 07:52 RDW 12.3 % (11.0-16.0) 12/28/22 07:52 Plt Count 21 X10*3/uL (160-400) L D 12/28/22 07:52 MPV 12.8 fL (9.4-12.3) H 12/28/22 07:52 Immature Gran % (Auto) Cancelled 12/28/22 07:52 Neut % (Auto) Cancelled 12/28/22 07:52 Lymph % (Auto) Cancelled 12/28/22 07:52 Gila % (Auto) Cancelled 12/28/22 07:52 Eos % (Auto) Cancelled 12/28/22 07:52 Baso % (Auto) Cancelled 12/28/22 07:52 Lymph # (Auto) Cancelled 12/28/22 07:52 [place] # (Auto) Cancelled 12/28/22 07:52 Eos # (Auto) Cancelled 12/28/22 07:52 Baso # (Auto) Cancelled 12/28/22 07:52 Abs Immat Gran (auto) Cancelled 12/28/22 07:52 Absolute Neuts (auto) Cancelled 12/28/22 07:52 Absolute Nucleated RBC 0.000 X10*3/uL (0.0-0.012) 12/28/22 07:52 Nucleated RBC % (auto) 0.0 /100WBC (0.0-0.2) 12/28/22 07:52 Neutrophils % (Manual) 56 % (45-73) 12/28/22 07:52 Band Neutrophils % 11 % (3-5) H 12/28/22 07:52 Lymphocytes % (Manual) 29 % (20-40) 12/28/22 07:52 Monocytes % (Manual) 4 % (2-11) 12/28/22 07:52 Abs Neuts (Manual) 1.0 X10*3/uL (2.0-8.3) L 12/28/22 07:52 Lymphocytes # (Manual) 0.4 X10*3/uL (1.2-4.9) L 12/28/22 07:52 Monocytes # (Manual) 0.1 X10*3/uL (0.1-1.2) 12/28/22 07:52 Dohle Bodies PRESENT 12/28/22 07:52 Platelet Estimate DECREASED (NORMAL) 12/28/22 07:52 Plt Morphology Comment NORMAL 12/28/22 07:52 RBC Morphology NOTED 12/28/22 07:52 [place] Cells 1+ (0-2) /OIF 12/28/22 07:52 Sodium 141 mmol/L (135-145) 12/28/22 07:52 Potassium 3.3 mmol/L (3.3-5.1) 12/28/22 07:52 Chloride 108 mmol/L (96-108) 12/28/22 07:52 Carbon Dioxide 24 mmol/L (22-29) 12/28/22 07:52 Anion Gap 12 (12-20) 12/28/22 07:52 BUN 15 mg/dL (9-16) 12/28/22 07:52 Creatinine 0.72 mg/dL (0.5-1.4) 12/28/22 07:52 Estim Creat Clear Calc 59.9 12/28/22 07:52 Estimated GFR > 60 12/28/22 07:52 Random Glucose 94 mg/dL (60-115) 12/28/22 07:52 Lactic Acid 2.1 mmol/L (0.5-2.0) H* 12/28/22 07:52 Lactic Acid F/U @ 2Hr 1.6 mmol/L (0.5-2.0) 12/28/22 10:46 Calcium 7.3 mg/dL (8.4-10.2) L D 12/28/22 07:52 Magnesium 1.0 mg/dL (1.6-2.6) L* 12/28/22 07:52 Total Bilirubin 0.6 mg/dL (0.0-1.0) 12/28/22 07:52 AST 19 U/L (5-31) 12/28/22 07:52 ALT 11 U/L (0-31) 12/28/22 07:52 Alkaline Phosphatase 48 U/L (39-117) 12/28/22 07:52 Troponin I High Sens 10.9 ng/L (<3.5-17.0) 12/28/22 07:52 B-Natriuretic Peptide 622 pg/mL (<100) H 12/28/22 07:52 Total Protein 5.5 g/dL (6.5-8.0) L 12/28/22 07:52 Albumin 2.8 g/dL (3.5-5.0) L 12/28/22 07:52 COVID-19 (MELONIE) Negative (Negative) 12/28/22 09:16 COVID-19 Clin Com See Note 12/28/22 09:16 Blood Type A Positive 12/28/22 07:55 Antibody Screen NEGATIVE 12/28/22 07:55 - Imaging Radiologist's impression: ITS Impressions Chest X-Ray 12/28/22 07:20 IMPRESSION: Severe changes of emphysema are better seen on the previous chest CT. Interval worsening of the right lung airspace and interstitial opacities, greater in the upper and mid lung zone compared to the radius x-rays as detailed above. The findings are concerning for inflammatory or infectious process. Assessment and Plan Patient Active problem list reviewed?: Yes (1) Stage 4 malignant neoplasm of lung Status: Acute Assessment and plan: 1. 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 She was was started on palliative systemic therapy with carboplatin, paclitaxel and pembrolizumab in 1st week of December at the [facility]. She was admitted on 12/26/2022 for headaches and severe thrombocytopenia and neutropenia. She developed fever/sepsis and was on pressors briefly in the intensive care unit on 12/27/2022. She was given Granix as well as antibiotics including antifungal coverage for neutropenic fever. She left the hospital AMA last evening and got admitted this morning. Chest x-ray shows worsening patchy right opacities worrisome for worsening pneumonia. She has been restarted on Zosyn and vancomycin. Neutropenia has improved. Platelets are coming up. Blood cultures so far are negative. Continue with current therapy. - Time Spent With Patient Time Spent with Patient (in minutes): 20
[2022-12-28] MEDS: Fluconazole in NaCl,Iso-Osm 200 MG/100 ML PIGGYBACK 100 MG IV (17:44)
[2022-12-28] MEDS: 0.9 % Sodium Chloride Flush 3 ML SYRINGE IVFLUSH (17:45)
[2022-12-28] MEDS: vancomycin HCL 750 MG in 0.9 % Sodium Chloride 250 ML 265 MG IV (22:42)
[2022-12-29] VITALS (9 sets, daily range): BP systolic 110–128; BP diastolic 60–69; PULSE 88–103; RESP 17–28; TEMP 36.8–38.1; O2SAT 86–97; BMI 24.1
[2022-12-29] MEDS: Morphine Sulfate 4 MG/ML CARTRIDGE IVPUSH ×5 (00:25→20:42)
[2022-12-29] MEDS: Piperacillin Sodium/Tazobactam 4.5 GM in 0.9 % Sodium Chloride 100 ML IV ×4 (05:30→23:29)
[2022-12-29 07:53] LABS: Creatinine Clr Calc Pharmacy 59.9; Estimated Glomerular Filt Rate > 60
[2022-12-29 07:55] LABS: Vancomycin Random 16.4 mcg/mL (15-20)
--- NOTE | 2022-12-29 08:15 | HE.PHANOTE ---
RE ROSALIO CONTINUE CURRENT DOSE, NEXT LEVEL DUE 12/30 @1800 (PREDICTED AUC 537, TROUGH 15.3)
[2022-12-29] MEDS: vancomycin HCL 750 MG in 0.9 % Sodium Chloride 250 ML 265 MG IV ×2 (08:29→20:46)
[2022-12-29] MEDS: 0.9 % Sodium Chloride 1,000 ML 100 ML IVCONT ×2 (08:30→19:17)
[2022-12-29] MEDS: Nicotine 14 MG PATCH.TD24 TRANSDERMA (08:32)
[2022-12-29] MEDS: 0.9 % Sodium Chloride Flush 3 ML SYRINGE IVFLUSH ×3 (08:32→15:10)
[2022-12-29 09:26] LABS: Appearance Urine Clear; Color Urine Yellow; Glucose Urine UA Negative (Negative); Leukocyte Esterase Urine Negative (Negative); Nitrite Urine Negative (Negative); Specific Gravity - Urine 1.015 (1.005-1.025); Urine Blood Negative (Negative); Urine Ketones Negative (Negative); Urine Protein Trace mg/dL (Neg-Trace)
--- NOTE | 2022-12-29 09:35 | MHC.CM.PN ---
CM ATTEMPTED TO MEET W/PT HOWEVER PT IN BATHROOM, CM TO REVISIT.
--- NOTE | 2022-12-29 09:40 | PC.NURSE ---
Pt given morphine x2 for mild abdominal and back pain with cough and to relieve SOB. Pt stated she did not want such a big dose of morphine and took a half dose x2 stating both time that it had good effect on pain and sob. She was coached on pursed lip breathing and moving slowly with preplanning to minimize WOB. Pt stated good result from both and was practicing throughout the night.
--- NOTE | 2022-12-29 11:09 | MHC.CM.PN ---
IMM 12/29/22 DELIVERED TO BEDSIDE, PT READMITTED W/NEUTROPENIC FEVER, PT W/BRAIN METASTASIS, CM MET W/PT WHO IS A&OX4, PT REPORTS SHE LIVES ALONE, HAS A CANE/WALKER AT HOME, [place], HAS HH W/[facility] AND A NURSE CM THROUGH [facility], PT HAD ALSO BEEN ACTIVE W/[facility]. CM DISCUSSED HOSPICE VS PALLIATIVE CARE W/PT HOWEVER D/T SUBSTANCE USE AND LIVING ALONE PT WOULD NOT LIKELY QUALIFY FOR HOSPICE, CM CONTACTED [facility] WHO HAVE A PALLIATIVE CARE TEAM AND PER LIAISON SHE WILL SHE W/TEAMS AVAILABILITY.
--- NOTE | 2022-12-29 12:12 | P.CDIM_ITS ---
PROVIDER RESPONSE TEXT: To clarify, the appropriate diagnosis supported by the clinical indicators: Pancytopenia QUERY TEXT: PHYSICIAN'S DOCUMENTATION REQUEST Date of Query: 12/29/2022 09:05 AM EDT Patient Name: Tari Eaton Admit Date: 12/28/2022 Dear George Sanchez, A review of the medical record indicates additional documentation may be needed. Please review below and update the documentation accordingly. Clinical Indicators: LABS: WBC 1.5 L RBC 2.85 L PLT 21 L Stage IV squamous cell carcinoma with brain mets. Based on the above, is there a diagnosis that correlates with the lab findings: Pancytopenia Labs indicate a diagnosis of (please specify) Other please specify Other (explain)Clinically unable to determine (explain)Thank you, Melissa Villarreal, CCS, CDIS Use of terms such as suspected, likely, concern for, or probable (associated with a specific diagnosi s that is being evaluated, monitored, or treated as if it exists) are acceptable and can be coded in the inpatient se tting, when documented at the time of discharge. Please use your independent medical judgment in providing your response. THIS QUERY IS PART OF THE PERMANENT MEDICAL RECORD
[2022-12-29] MEDS: Enoxaparin Sodium 40 MG/0.4 ML SYRINGE SUBCUT (12:21)
--- NOTE | 2022-12-29 13:47 | HO.PM.IMPN ---
Subjective Subjective Date of Service: 12/29/22 Interval History: Pain control adequate. T-max 100.1 degrees Review of Systems Denies chest pain Denies shortness of breath Denies fever and chills. Denies nausea vomiting diarrhea Physical Exam Vital Signs: Vital Signs: Last Vital Signs Temp 99.6 F 12/29/22 11:24 Pulse 90 12/29/22 11:24 Resp 18 12/29/22 11:24 BP 113/62 12/29/22 11:24 Pulse Ox 92 12/29/22 11:24 O2 Del Method Nasal Cannula 12/29/22 11:24 O2 Flow Rate 6 12/29/22 11:24 BMI result Body Mass Index 24.1 Const: Other: Awake alert comfortable Resp: Other: Diminished throughout with scattered rhonchi and expiratory wheezes Cardio: Other: No S4; positive S1-S2; no S3 murmurs rubs or gallops GI: Other: Soft nontender nondistended with normoactive bowel sounds Extrem: Other: No edema bilaterally Objective Data Active Medications Acetaminophen (Acetaminophen 325 Mg Tablet) 650 mg PO Q6H PRN PRN Reason: Pain, Mild (Pain Scale 1-3) Al Hydroxide/Mg Hydroxide (Magnesium Hydrox/Alum Hydrox 30 Ml Oral.Susp) 30 ml PO Q4H PRN PRN Reason: Heartburn/Nausea Enoxaparin Sodium (Enoxaparin Sodium 40 Mg/0.4 Ml Syringe) 40 mg SUBCUT Q24H [facility] Last Admin: 12/29/22 12:21 Dose: 40 mg Documented By: JOSE MARTIN Sodium Chloride (Ns) 1,000 mls @ 100 mls/hr IVCONT .Q10H [facility] Last Admin: 12/29/22 08:30 Dose: 100 mls/hr Documented By: JOSE MARTIN Fluconazole (Diflucan) 200 mg in 100 mls @ 100 mls/hr IV Q24H [facility] Last Infusion: 12/28/22 18:57 Dose: 0 mls/hr Documented By: DESEAN Vancomycin HCl 750 mg/ Sodium (Chloride) 265 mls @ 265 mls/hr IV Q12H [facility] Last Infusion: 12/29/22 12:23 Dose: 0 mls/hr Documented By: JOSE MARTIN Piperacillin Sod/Tazobactam (Sod 4.5 gm/ Sodium Chloride) 100 mls @ 200 mls/hr IV Q6H [facility] Last Admin: 12/29/22 12:22 Dose: 200 mls/hr Documented By: JOSE MARTIN Methadone HCl (Methadone Hcl 20 Mg/2 Ml Oral.Conc) 80 mg PO DAILY [facility] Morphine Sulfate (Morphine Sulfate 4 Mg/Ml Cartridge) 4 mg IVPUSH Q3H PRN; Protocol PRN Reason: Pain, Moderate(Pain Scale 4-6) Last Admin: 12/29/22 03:10 Dose: 2 mg Documented By: JUANITA Comments: patient stated she only wants 1/2 dose Nicotine (Nicotine 14 Mg Patch.Td24) 14 mg TRANSDERMA DAILY [facility] Last Admin: 12/29/22 08:32 Dose: 14 mg Documented By: JOSE MARTIN Pharmacy Consult (Consult Rx Vancomycin Dosing) 1 each MISCELLANE DAILY PRN PRN Reason: Consult order Sodium Chloride (0.9 % Sodium Chloride Flush 3 Ml Syringe) 3 ml IVFLUSH QSHIFT [facility] Last Admin: 12/29/22 12:23 Dose: 3 ml Documented By: JOSE MARTIN Labs 12/28/22 07:52 12/29/22 07:00 Labs: Laboratory Results - last 24 hr 12/29/22 12/29/22 12/29/22 07:00 07:00 08:26 Estim Creat Clear Calc 59.9 Estimated GFR > 60 Urine Color Yellow Urine Appearance Clear Urine pH 6.0 Ur Specific [place] 1.015 Urine Protein Trace Urine Glucose (UA) Negative Urine Ketones Negative Urine Blood Negative Urine Nitrite Negative Ur Leukocyte Esterase Negative Random Vancomycin 16.4 Microbiology Microbiology Results: Microbiology 12/28/22 07:55 Blood Culture - Preliminary Blood - Venous No growth after 24 hours. 12/28/22 07:52 Blood Culture - Preliminary Blood - Venous No growth after 24 hours. Assessment and Plan (1) Stage 4 malignant neoplasm of lung: Status: Acute Plan 67-year-old female with history of hypertension, history of lung cancer s/p left lobectomy 2020, now with 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 1. Acute sepsis with hypotension secondary to neutropenic fever /metastatic lung cancer -blood cultures x2 remain negative -empiric vancomycin/cefepime/fluconazole -continue current therapies Discussed with daughter at bedside who is an RN (Oncology at [facility]).? At present patient is full code but daughter has no unrealistic expectations about outcomes.? Further decisions about code status will be dictated by patient's course. Time Spent With Patient Time: Total time managing care of this patient today ____ minutes. Quality Stroke Does the patient have a stroke diagnosis?: No VTE Prior VTE?: No VTE Risk Level:: Medical - moderate - high VTE Device Contraindication: Treatment Not Indicated VTE Drug Contraindication: N/A - Med Ordered
--- NOTE | 2022-12-29 13:51 | PM.IMHP ---
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 She received a 30 cc/kilogram bolus for following BP sent ultimately ended up in ICU on ephedrine drip. Overnight 12/28 till 12/29.. Patient signed out AMA. Returns today with daughter for worsening shortness of breath. She presented afebrile Review of Systems Review of Systems: Denies chest pain Denies shortness of breath Denies fever and chills. Denies nausea vomiting diarrhea PMFSH Medical History Emphysema lung GERD (gastroesophageal reflux disease) HTN (hypertension) Metabolic brain disease Opiate dependence 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 Thrombocytopenia Surgical History S/P craniotomy Social History Household Members: None Housing: Apartment Do you presently have visiting nurse or other home services: Yes (one time) Patient Tobacco Use Status: Current everyday Tobacco user Tobacco use type: Cigarette Cigarette Packs Per Day: 1 Smoked in Last 30 Days: Yes Patient Interested in Nicotine Replacement: Yes Use of substances other than those prescribed or required for medical reasons: No Substance Use Type: Amphetamines and Heroin Currently Displaying Signs/Symptoms of Drug Intoxication Withdrawal: No Have you been hit, kicked, punched, or otherwise hurt by someone within the past year? If so, by whom?: No Do you feel safe in your current relationship?: No Current Relationship Is there a partner from a previous relationship who is making you feel unsafe now?: No Are you made to feel afraid or neglected: No Advance Directives: Yes Advance Directives on File: Yes Advance Directives Date on File: 10/25/22 Do you have thoughts of harming others: Vague Do you have a plan to hurt others: No Plan Recently lost weight without trying: Yes How much weight loss: 2-13 pounds Eating poorly because of decreased appetite: Yes Nutrition screen score: 4 Patient : No service: No Meds Allergies Allergy/AdvReac Type Severity Reaction Status Date / Time elastic Allergy Unknown Uncoded 12/28/22 07:03 Active Medications: Current Medications Acetaminophen (Acetaminophen 325 Mg Tablet) 650 mg PO Q6H PRN PRN Reason: Pain, Mild (Pain Scale 1-3) Al Hydroxide/Mg Hydroxide (Magnesium Hydrox/Alum Hydrox 30 Ml Oral.Susp) 30 ml PO Q4H PRN PRN Reason: Heartburn/Nausea Enoxaparin Sodium (Enoxaparin Sodium 40 Mg/0.4 Ml Syringe) 40 mg SUBCUT Q24H ON LICENSE OF [facility] Last Admin: 12/29/22 12:21 Dose: 40 mg Sodium Chloride (Ns) 1,000 mls @ 100 mls/hr IVCONT .Q10H ON LICENSE OF [facility] Last Admin: 12/29/22 08:30 Dose: 100 mls/hr Fluconazole (Diflucan) 200 mg in 100 mls @ 100 mls/hr IV Q24H ON LICENSE OF [facility] Last Infusion: 12/28/22 18:57 Dose: Infused Vancomycin HCl 750 mg/ Sodium (Chloride) 265 mls @ 265 mls/hr IV Q12H ON LICENSE OF [facility] Last Infusion: 12/29/22 12:23 Dose: Infused Piperacillin Sod/Tazobactam (Sod 4.5 gm/ Sodium Chloride) 100 mls @ 200 mls/hr IV Q6H ON LICENSE OF [facility] Last Admin: 12/29/22 12:22 Dose: 200 mls/hr Methadone HCl (Methadone Hcl 20 Mg/2 Ml Oral.Conc) 80 mg PO DAILY ON [facility] OF [facility] Morphine Sulfate (Morphine Sulfate 4 Mg/Ml Cartridge) 4 mg IVPUSH Q3H PRN; Protocol PRN Reason: Pain, Moderate(Pain Scale 4-6) Last Admin: 12/29/22 08:10 Dose: 4 mg Nicotine (Nicotine 14 Mg Patch.Td24) 14 mg TRANSDERMA DAILY ON LICENSE OF [facility] Last Admin: 12/29/22 08:32 Dose: 14 mg Pharmacy Consult (Consult Rx Vancomycin Dosing) 1 each MISCELLANE DAILY PRN PRN Reason: Consult order Sodium Chloride (0.9 % Sodium Chloride Flush 3 Ml Syringe) 3 ml IVFLUSH QSHIFT ON LICENSE OF [facility] Last Admin: 12/29/22 12:23 Dose: 3 ml Home Medications Medication Instructions Recorded Confirmed Last Taken Type albuterol sulfate 90 mcg/actuation 2 puff inhalation QID PRN wheezing 10/25/22 12/28/22 12/26/22 History aerosol inhaler (Ventolin HFA) alendronate 70 mg tablet 70 mg PO TU 10/25/22 12/28/22 12/27/22 History calcium carbonate 600 mg-vitamin 1 tab PO BID 10/25/22 12/28/22 12/27/22 History D3 10 mcg (400 unit) tablet fluticasone propionate 50 1 spray intranasal DAILY 10/25/22 12/28/22 Unknown History mcg/actuation nasal spray,suspension lisinopril 10 mg tablet 10 mg PO DAILY 10/25/22 12/28/22 12/27/22 History melatonin 3 mg tablet 6 mg PO BEDTIME 10/25/22 12/28/22 12/25/22 History methadone 10 mg/mL oral 80 mg PO DAILY 10/25/22 12/27/22 12/28/22 06:00 History concentrate (Methadone Intensol) ascorbic acid (vitamin C) 1,000 mg 1,000 mg PO DAILY 12/26/22 12/28/22 12/27/22 History tablet (Vitamin C) buspirone 10 mg tablet 10 mg PO BID 12/26/22 12/28/22 12/27/22 History clonazepam 0.25 mg disintegrating 0.25 mg PO BID PRN anxiety attack 12/26/22 12/28/22 Unknown History tablet fluticasone propionate 220 2 puff inhalation BID 12/26/22 12/28/22 12/27/22 History mcg/actuation HFA aerosol inhaler (Flovent HFA) lidocaine-prilocaine 2.5 %-2.5 % 1 appl topical DAILY PRN PRIOR TO 12/26/22 12/28/22 12/26/22 History topical cream PORT USE pantoprazole 40 mg tablet,delayed 40 mg PO DAILY@0630 12/26/22 12/28/22 12/27/22 History release sennosides 8.6 mg tablet (senna) 8.6 mg PO BEDTIME PRN constipation 12/26/22 12/28/22 12/26/22 History venlafaxine 37.5 mg 37.5 mg PO DAILY@0800 12/26/22 12/28/22 12/27/22 History capsule,extended release 24 hr Physical Exam Vital Signs and Narrative: Vital Signs: Last Vital Signs Temp 99.6 F 12/29/22 11:24 Pulse 90 12/29/22 11:24 Resp 18 12/29/22 11:24 BP 113/62 12/29/22 11:24 Pulse Ox 92 12/29/22 11:24 O2 Del Method Nasal Cannula 12/29/22 11:24 O2 Flow Rate 6 12/29/22 11:24 BMI result Body Mass Index 24.1 Const: Other: Awake alert no acute distress Resp: Other: Diminished all jara with coarse rhonchi and expiratory wheezes throughout Cardio: Other: No S4; positive S1-S2; no S3 murmurs rubs or gallops GI: Other: Soft nontender nondistended with normoactive bowel sounds Extrem: Other: No edema bilaterally Results Labs 12/28/22 07:52 12/29/22 07:00 Labs: Laboratory Results - last 24 hr 12/29/22 12/29/22 12/29/22 07:00 07:00 08:26 Estim Creat Clear Calc 59.9 Estimated GFR > 60 Urine Color Yellow Urine Appearance Clear Urine pH 6.0 Ur Specific [place] 1.015 Urine Protein Trace Urine Glucose (UA) Negative Urine Ketones Negative Urine Blood Negative Urine Nitrite Negative Ur Leukocyte Esterase Negative Random Vancomycin 16.4 Assessment and Plan (1) Stage 4 malignant neoplasm of lung: Status: Acute Plan 67-year-old female with history of hypertension, history of lung cancer s/p left lobectomy 2020, now with 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 1. Acute sepsis with hypotension secondary to neutropenic fever /metastatic lung cancer -blood cultures x2 remain negative -continue empiric vancomycin/cefepime/fluconazole -continue current therapies Discussed with daughter at bedside who is an RN (Oncology at [facility]).? At present patient is full code but daughter has no unrealistic expectations about outcomes.? Further decisions about code status will be dictated by patient's course. Time Spent With Patient Time: Total time managing care of this patient today ____ minutes. Quality Stroke Does the patient have a stroke diagnosis?: No VTE Prior VTE?: No VTE Risk Level:: Medical - moderate - high VTE Device Contraindication: Treatment Not Indicated VTE Drug Contraindication: N/A - Med Ordered
--- NOTE | 2022-12-29 14:46 | HE.PHANOTE ---
RE: METHADONE Pharmacy has recieved patients methadone verification sheet. Patient was confirmed to be on 80 mg with [facility], patient was last dosed 12/23/22, however patient did have 6 take-home bottles.
--- NOTE | 2022-12-29 14:46 | MHC.RECOVRN ---
This commercial loan underwriter met with patient after receiving addiction consult. Pt admitted for neutropenic fever. Pt reports doses with [facility], pt reports receives take home bottles, pt states last home dose of 80mg taken yesterday. Pt denies opiate withdrawal currently. Pt reports typically takes dose at 7am. This commercial loan underwriter verified last dose with [facility], pt dosed 12/23/22, 80mg dosed at window, received 6, 80mg take home bottles on 12/23/22. Pt currently denies illicit opiate use. MTD verfication sent to pharmacy.
[2022-12-29] MEDS: methADONE HCl 20 MG/2 ML ORAL.CONC 80 MG PO (15:10)
[2022-12-29] MEDS: Fluconazole in NaCl,Iso-Osm 200 MG/100 ML PIGGYBACK 100 MG IV (16:30)
[2022-12-30] VITALS (13 sets, daily range): BP systolic 119–141; BP diastolic 65–74; PULSE 73–91; RESP 16–24; TEMP 36.3–37.6; O2SAT 85–97
[2022-12-30] MEDS: Morphine Sulfate 4 MG/ML CARTRIDGE IVPUSH ×6 (00:36→22:01)
[2022-12-30] MEDS: 0.9 % Sodium Chloride Flush 3 ML SYRINGE IVFLUSH ×3 (00:40→17:56)
[2022-12-30] MEDS: Piperacillin Sodium/Tazobactam 4.5 GM in 0.9 % Sodium Chloride 100 ML IV ×4 (04:03→22:39)
[2022-12-30 06:41] LABS: Creatinine Clr Calc Pharmacy 62.6; Estimated Glomerular Filt Rate > 60
--- NOTE | 2022-12-30 10:20 | MHC.CLN ---
F/U DIET=REGULAR, NEUTROPENIC PRECAUTIONS. POOR INTAKE REPORTED PRIOR TO ADMISSION. CURRENT PO 100% X 2. NO SKIN ISSUES. MONITOR INTAKE CLOSELY.
[2022-12-30] MEDS: methADONE HCl 20 MG/2 ML ORAL.CONC 80 MG PO (10:23)
[2022-12-30] MEDS: Enoxaparin Sodium 40 MG/0.4 ML SYRINGE SUBCUT (10:27)
[2022-12-30] MEDS: Nicotine 14 MG PATCH.TD24 TRANSDERMA (10:28)
[2022-12-30] MEDS: vancomycin HCL 750 MG in 0.9 % Sodium Chloride 250 ML 265 MG IV ×2 (10:29→21:14)
--- NOTE | 2022-12-30 16:00 | MHC.CM.PN ---
Spoke with Ericka, Care transitions [facility]. She confirms that Palliative care will be in place at home. DP home with [facility] via BLS.
--- NOTE | 2022-12-30 16:27 | HO.PM.IMPN ---
Subjective Subjective Date of Service: 12/30/22 Interval History: No acute issues overnight. Tolerant of high-flow. Some hemoptysis Review of Systems Denies chest pain Denies shortness of breath Denies fever and chills. Denies nausea vomiting diarrhea Physical Exam Vital Signs: Vital Signs: Last Vital Signs Temp 98.7 F 12/30/22 15:16 Pulse 82 12/30/22 15:16 Resp 20 12/30/22 15:45 BP 121/71 12/30/22 15:16 Pulse Ox 96 12/30/22 15:16 O2 Del Method High Flow Nasal C annula 12/30/22 15:16 O2 Flow Rate 5 12/30/22 15:16 FiO2 50 12/30/22 11:21 BMI result Body Mass Index 24.1 Const: Other: Awake alert no acute distress Resp: Other: Diminished all jara with coarse rhonchi and expiratory wheezes throughout Cardio: Other: No S4; positive S1-S2; no S3 murmurs rubs or gallops GI: Other: Soft nontender nondistended with normoactive bowel sounds Extrem: Other: No edema bilaterally Objective Data Active Medications Acetaminophen (Acetaminophen 325 Mg Tablet) 650 mg PO Q6H PRN PRN Reason: Pain, Mild (Pain Scale 1-3) Al Hydroxide/Mg Hydroxide (Magnesium Hydrox/Alum Hydrox 30 Ml Oral.Susp) 30 ml PO Q4H PRN PRN Reason: Heartburn/Nausea Enoxaparin Sodium (Enoxaparin Sodium 40 Mg/0.4 Ml Syringe) 40 mg SUBCUT Q24H [facility] Last Admin: 12/30/22 10:27 Dose: 40 mg Documented By: JOSE MARTIN Fluconazole (Diflucan) 200 mg in 100 mls @ 100 mls/hr IV Q24H [facility] Last Infusion: 12/29/22 19:17 Dose: 0 mls/hr Documented By: JOSE MARTIN Vancomycin HCl 750 mg/ Sodium (Chloride) 265 mls @ 265 mls/hr IV Q12H [facility] Last Admin: 12/30/22 10:29 Dose: 265 mls/hr Documented By: JOSE MARTIN Piperacillin Sod/Tazobactam (Sod 4.5 gm/ Sodium Chloride) 100 mls @ 200 mls/hr IV Q6H [facility] Last Admin: 12/30/22 15:10 Dose: 200 mls/hr Documented By: JOSE MARTIN Methadone HCl (Methadone Hcl 20 Mg/2 Ml Oral.Conc) 80 mg PO DAILY [facility] Last Admin: 12/30/22 10:23 Dose: 80 mg Documented By: JOSE MARTIN Morphine Sulfate (Morphine Sulfate 4 Mg/Ml Cartridge) 4 mg IVPUSH Q3H PRN; Protocol PRN Reason: Pain, Moderate(Pain Scale 4-6) Last Admin: 12/30/22 15:15 Dose: 4 mg Documented By: JOSE MARTIN Nicotine (Nicotine 14 Mg Patch.Td24) 14 mg TRANSDERMA DAILY [facility] Last Admin: 12/30/22 10:28 Dose: 14 mg Documented By: JOSE MARTIN Pharmacy Consult (Consult Rx Vancomycin Dosing) 1 each MISCELLANE DAILY PRN PRN Reason: Consult order Sodium Chloride (0.9 % Sodium Chloride Flush 3 Ml Syringe) 3 ml IVFLUSH QSHIFT [facility] Last Admin: 12/30/22 10:27 Dose: 3 ml Documented By: JOSE MARTIN Labs 12/28/22 07:52 12/30/22 06:02 Labs: Laboratory Results - last 24 hr 12/30/22 06:02 Estim Creat Clear Calc 62.6 Estimated GFR > 60 Microbiology Microbiology Results: Microbiology 12/28/22 07:55 Blood Culture - Preliminary Blood - Venous No growth after 48 hours. 12/28/22 07:52 Blood Culture - Preliminary Blood - Venous No growth after 48 hours. 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 1. Acute sepsis with hypotension secondary to neutropenic fever /metastatic lung cancer -blood cultures x2 remain negative -continue empiric vancomycin/cefepime/fluconazole -continue current therapies DNR DNI Requires ongoing hospitalization for empiric antibiotic coverage for neutropenic fever Time Spent With Patient Time: Total time managing care of this patient today ____ minutes. Quality Stroke Does the patient have a stroke diagnosis?: No VTE Prior VTE?: No VTE Risk Level:: Medical - moderate - high VTE Device Contraindication: Treatment Not Indicated VTE Drug Contraindication: N/A - Med Ordered
[2022-12-30] MEDS: Fluconazole in NaCl,Iso-Osm 200 MG/100 ML PIGGYBACK 100 MG IV (17:55)
[2022-12-30] MEDS: Acetaminophen 325 MG TABLET 650 MG PO (18:47)
[2022-12-30 18:57] LABS: Vancomycin Random 14.8 mcg/mL (15-20)
[2022-12-30] MEDS: busPIRone HCl 10 MG TABLET PO (23:59)
[2022-12-31] VITALS (18 sets, daily range): BP systolic 111–168; BP diastolic 70–96; PULSE 77–100; RESP 12–26; TEMP 36.1–37.3; O2SAT 50–98
[2022-12-31] MEDS: Morphine Sulfate 4 MG/ML CARTRIDGE IVPUSH ×6 (02:11→19:43)
[2022-12-31] MEDS: Acetaminophen 325 MG TABLET 650 MG PO ×2 (03:04→11:40)
[2022-12-31] MEDS: Piperacillin Sodium/Tazobactam 4.5 GM in 0.9 % Sodium Chloride 100 ML IV ×3 (03:06→21:52)
[2022-12-31] MEDS: Omeprazole 40 MG CAPSULE.DR PO (05:16)
[2022-12-31 06:37] LABS: Hematocrit 21.7 % (37.0-47.0); Hemoglobin 7.5 g/dl (12.0-16.0); Mean Corpuscular HGB Conc 34.6 g/dl (31.0-35.0); Mean Corpuscular Hemoglobin 29.3 pg (27.0-33.0); Mean Corpuscular Volume 84.8 fL (80.0-98.0); Red Blood Count 2.56 X10*6/uL (4.20-5.50); Red Cell Distribution Width 12.9 % (11.0-16.0)
[2022-12-31 06:42] LABS: Platelet Count 8 X10*3/uL (160-400); White Blood Count 1.5 X10*3/uL (4.8-10.8)
--- NOTE | 2022-12-31 06:42 | PM.EVENT ---
Event Note Date of Service: 12/31/22 Event Note: Patient with platelet counts of 8 this morning. Will transfuse. No acute bleed Time Spent With Patient Time: Total time managing care of this patient today ____ minutes.
[2022-12-31 07:07] LABS: Alanine Aminotransferase 7 U/L (0-31); Albumin Level 2.2 g/dL (3.5-5.0); Alkaline Phosphatase 45 U/L (39-117); Aspartate Amino Transferase 23 U/L (5-31); Bilirubin Total 0.8 mg/dL (0.0-1.0); Blood Urea Nitrogen 8 mg/dL (9-16); Calcium 6.8 mg/dL (8.4-10.2); Creatinine Clr Calc Pharmacy 69.6; Estimated Glomerular Filt Rate > 60; Glucose Fasting 84 mg/dL (60-99); Total Protein 4.9 g/dL (6.5-8.0)
[2022-12-31 07:41] LABS: Anion Gap 11 (12-20); Carbon Dioxide 23 mmol/L (22-29); Chloride 109 mmol/L (96-108); Potassium 2.4 mmol/L (3.3-5.1); Sodium 141 mmol/L (135-145)
[2022-12-31 07:59] LABS: Atypical Lymphs Percent Manual 1 % (0-6); Band Neutrophils Percent 4 % (3-5); Basophils Percent Manual 1 % (0-2); Eosinophils Percent Manual 1 % (0-4); Lymphocytes Absolute Manual 0.2 X10*3/uL (1.2-4.9); Lymphocytes Percent Manual 16 % (20-40); Monocytes Absolute Manual 0.1 X10*3/uL (0.1-1.2); Monocytes Percent Manual 5 % (2-11); Neutrophils Absolute Manual 1.1 X10*3/uL (2.0-8.3); Neutrophils Percent Manual 72 % (45-73)
[2022-12-31 08:01] LABS: Burr Cells 2+ (3-5) /OIF; Platelet Estimate DECREASED (NORMAL); RBC Morphology NOTED; Schistocytes 1+ (0-2) /OIF
[2022-12-31 08:02] LABS: Platelet Morphology Comment NORMAL
[2022-12-31] MEDS: Magnesium Sulfate/H2O 2 GM/50 ML PIGGYBACK IV (08:19)
[2022-12-31] MEDS: Potassium Chloride Packet 20 MEQ PACKET 40 MEQ PO ×3 (08:21→17:19)
[2022-12-31] MEDS: Enoxaparin Sodium 40 MG/0.4 ML SYRINGE SUBCUT (12:38)
[2022-12-31] MEDS: Nicotine 14 MG PATCH.TD24 TRANSDERMA (12:38)
[2022-12-31] MEDS: busPIRone HCl 10 MG TABLET PO ×2 (12:39→21:33)
[2022-12-31] MEDS: Calcium + Vitamin D 250 MG TABLET PO ×2 (12:39→21:33)
[2022-12-31] MEDS: lisinopriL 10 MG TABLET PO (12:39)
[2022-12-31] MEDS: Ascorbic Acid 500 MG TABLET 1000 MG PO (12:39)
[2022-12-31] MEDS: methADONE HCl 20 MG/2 ML ORAL.CONC 80 MG PO (12:40)
[2022-12-31] MEDS: Venlafaxine HCl ER 37.5 MG CAP.ER.24H PO (13:11)
--- NOTE | 2022-12-31 13:31 | HO.PM.IMPN ---
Subjective Subjective Date of Service: 12/31/22 Interval History: Remains pancytopenic without active bleeding. Pain control adequate. Sats stable on high-flow Review of Systems Denies chest pain Denies shortness of breath Denies fever and chills. Denies nausea vomiting diarrhea Physical Exam Vital Signs: Vital Signs: Last Vital Signs Temp 99.1 F 12/31/22 11:21 Pulse 85 12/31/22 11:21 Resp 18 12/31/22 11:54 BP 125/81 12/31/22 11:21 Pulse Ox 96 12/31/22 11:21 O2 Del Method High Flow Nasal C annula 12/31/22 11:21 O2 Flow Rate 50 12/31/22 11:21 FiO2 90 12/31/22 11:21 BMI result Body Mass Index 24.1 Const: Other: Awake alert no acute distress Resp: Other: Diminished all jara with coarse rhonchi and expiratory wheezes throughout Cardio: Other: No S4; positive S1-S2; no S3 murmurs rubs or gallops GI: Other: Soft nontender nondistended with normoactive bowel sounds Extrem: Other: No edema bilaterally Objective Data Active Medications Acetaminophen (Acetaminophen 325 Mg Tablet) 650 mg PO Q6H PRN PRN Reason: Pain, Mild (Pain Scale 1-3) Last Admin: 12/31/22 11:40 Dose: 650 mg Documented By: KANIKA Al Hydroxide/Mg Hydroxide (Magnesium Hydrox/Alum Hydrox 30 Ml Oral.Susp) 30 ml PO Q4H PRN PRN Reason: Heartburn/Nausea Albuterol Sulfate (Albuterol Sulfate 90 Mcg 8 Gm Inhaler) 2 puff INHALE QID PRN PRN Reason: wheezing Ascorbic Acid (Ascorbic Acid 500 Mg Tablet) 1,000 mg PO DAILY [facility] Last Admin: 12/31/22 12:39 Dose: 1,000 mg Documented By: KANIKA Buspirone HCl (Buspirone Hcl 10 Mg Tablet) 10 mg PO BID [facility] Last Admin: 12/31/22 12:39 Dose: 10 mg Documented By: KANIKA Calcium Carbonate/Cholecalciferol (Calcium + Vitamin D 250 Mg Tablet) 250 mg PO BID [facility] Last Admin: 12/31/22 12:39 Dose: 250 mg Documented By: KANIKA Clonazepam (Clonazepam 0.125 Mg Tab.Rapdis) 0.25 mg PO BID PRN PRN Reason: anxiety attack Last Admin: 12/31/22 11:41 Dose: 0.25 mg Documented By: KANIKA Enoxaparin Sodium (Enoxaparin Sodium 40 Mg/0.4 Ml Syringe) 40 mg SUBCUT Q24H [facility] Last Admin: 12/31/22 12:38 Dose: 40 mg Documented By: KANIKA Fluconazole (Diflucan) 200 mg in 100 mls @ 100 mls/hr IV Q24H [facility] Last Infusion: 12/30/22 19:37 Dose: 0 mls/hr Documented By: JSOE MARTIN Vancomycin HCl 750 mg/ Sodium (Chloride) 265 mls @ 265 mls/hr IV Q12H [facility] Last Infusion: 12/30/22 22:37 Dose: 0 mls/hr Documented By: BRANDO Piperacillin Sod/Tazobactam (Sod 4.5 gm/ Sodium Chloride) 100 mls @ 200 mls/hr IV Q6H [facility] Last Admin: 12/31/22 12:40 Dose: 200 mls/hr Documented By: KANIKA Lisinopril (Lisinopril 10 Mg Tablet) 10 mg PO DAILY [facility]; Protocol Last Admin: 12/31/22 12:39 Dose: 10 mg Documented By: KANIKA Melatonin (Melatonin 3 Mg Tablet) 6 mg PO BEDTIME [facility] Methadone HCl (Methadone Hcl 20 Mg/2 Ml Oral.Conc) 80 mg PO DAILY [facility] Last Admin: 12/31/22 12:40 Dose: 80 mg Documented By: KANIKA Morphine Sulfate (Morphine Sulfate 4 Mg/Ml Cartridge) 4 mg IVPUSH Q3H PRN; Protocol PRN Reason: Pain, Moderate(Pain Scale 4-6) Last Admin: 12/31/22 10:28 Dose: 4 mg Documented By: KANIKA Nicotine (Nicotine 14 Mg Patch.Td24) 14 mg TRANSDERMA DAILY [facility] Last Admin: 12/31/22 12:38 Dose: 14 mg Documented By: KANIKA Omeprazole (Omeprazole 40 Mg Capsule.Dr) 40 mg PO DAILY@0630 [facility] Last Admin: 12/31/22 05:16 Dose: 40 mg Documented By: BRANDO Pharmacy Consult (Consult Rx Vancomycin Dosing) 1 each MISCELLANE DAILY PRN PRN Reason: Consult order Potassium Chloride (Potassium Chloride Packet 20 Meq Packet) 40 meq PO Q4H [facility] Stop: 12/31/22 19:46 Last Admin: 12/31/22 12:41 Dose: 40 meq Documented By: KANIKA Senna (Sennosides 8.6 Mg Tablet) 8.6 mg PO BEDTIME PRN PRN Reason: constipation Sodium Chloride (0.9 % Sodium Chloride Flush 3 Ml Syringe) 3 ml IVFLUSH QSHIFT [facility] Last Admin: 12/31/22 09:44 Dose: Not Given Documented By: KANIKA Non-Admin Reason: IV Running Venlafaxine HCl (Venlafaxine Hcl Er 37.5 Mg Cap.Er.24h) 37.5 mg PO DAILY@0800 [facility] Last Admin: 12/31/22 13:11 Dose: 37.5 mg Documented By: KANIKA Labs 12/31/22 06:14 12/31/22 06:14 Labs: Laboratory Results - last 24 hr 12/28/22 12/30/22 12/31/22 07:55 18:14 06:14 MCV MCH MCHC RDW Plt Count MPV Immature Gran % (Auto) Neut % (Auto) Lymph % (Auto) [place] % (Auto) Eos % (Auto) Baso % (Auto) Lymph # (Auto) [place] # (Auto) Eos # (Auto) Baso # (Auto) Abs Immat Gran (auto) Absolute Neuts (auto) Absolute Nucleated RBC Nucleated RBC % (auto) Neutrophils % (Manual) Band Neutrophils % Lymphocytes % (Manual) Atypical Lymphs % (Man) Monocytes % (Manual) Eosinophils % (Manual) Basophils % (Manual) Abs Neuts (Manual) Lymphocytes # (Manual) Monocytes # (Manual) Platelet Estimate Plt Morphology Comment RBC Morphology Radha Cells Schistocytes Anion Gap 11 L Estim Creat Clear Calc 69.6 Estimated GFR > 60 Random Glucose Fasting Glucose 84 Calcium 6.8 L D Magnesium 1.0 L* Total Bilirubin 0.8 AST 23 ALT 7 Alkaline Phosphatase 45 Total Protein 4.9 L Albumin 2.2 L Random Vancomycin 14.8 L Blood Type A Positive Antibody Screen NEGATIVE Crossmatch See Detail 12/31/22 12/31/22 06:14 06:17 MCV 84.8 MCH 29.3 MCHC 34.6 RDW 12.9 Plt Count 8 L* D MPV TNP Immature Gran % (Auto) Cancelled Neut % (Auto) Cancelled Lymph % (Auto) Cancelled [place] % (Auto) Cancelled Eos % (Auto) Cancelled Baso % (Auto) Cancelled Lymph # (Auto) Cancelled [place] # (Auto) Cancelled Eos # (Auto) Cancelled Baso # (Auto) Cancelled Abs Immat Gran (auto) Cancelled Absolute Neuts (auto) Cancelled Absolute Nucleated RBC 0.000 Nucleated RBC % (auto) 0.0 Neutrophils % (Manual) 72 Band Neutrophils % 4 Lymphocytes % (Manual) 16 L Atypical Lymphs % (Man) 1 Monocytes % (Manual) 5 Eosinophils % (Manual) 1 Basophils % (Manual) 1 Abs Neuts (Manual) 1.1 L Lymphocytes # (Manual) 0.2 L Monocytes # (Manual) 0.1 Platelet Estimate DECREASED Plt Morphology Comment NORMAL RBC Morphology NOTED [place] Cells 2+ (3-5) Schistocytes 1+ (0-2) Anion Gap Cancelled Estim Creat Clear Calc Cancelled Estimated GFR Cancelled Random Glucose Cancelled Fasting Glucose Calcium Cancelled Magnesium Cancelled Total Bilirubin AST ALT Alkaline Phosphatase Total Protein Albumin Random Vancomycin Blood Type Antibody Screen Crossmatch Microbiology Microbiology Results: Microbiology 12/28/22 07:55 Blood Culture - Preliminary Blood - Venous No growth after 48 hours. 12/28/22 07:52 Blood Culture - Preliminary Blood - Venous No growth after 48 hours. 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 1. Acute sepsis with hypotension secondary to neutropenic fever /metastatic lung cancer -blood cultures x2 remain negative -continue empiric vancomycin/cefepime/fluconazole -continue current therapies -continue high-flow O2 to maintain sats greater than equal to 88% DNR DNI Requires ongoing hospitalization for empiric antibiotic coverage for neutropenic fever Time Spent With Patient Time: Total time managing care of this patient today ____ minutes. Quality Stroke Does the patient have a stroke diagnosis?: No VTE Prior VTE?: No VTE Risk Level:: Medical - moderate - high VTE Device Contraindication: Treatment Not Indicated VTE Drug Contraindication: N/A - Med Ordered
[2022-12-31] MEDS: Fluconazole in NaCl,Iso-Osm 200 MG/100 ML PIGGYBACK 100 MG IV (14:06)
[2022-12-31] MEDS: vancomycin HCL 750 MG in 0.9 % Sodium Chloride 250 ML 265 MG IV (15:50)
[2022-12-31] MEDS: 0.9 % Sodium Chloride Flush 3 ML SYRINGE IVFLUSH (17:20)
[2022-12-31] MEDS: Furosemide 20 MG/2 ML VIAL IVPUSH (17:34)
[2022-12-31] MEDS: Melatonin 3 MG TABLET 6 MG PO (21:33)
[2023-01-01] VITALS (13 sets, daily range): BP systolic 105–129; BP diastolic 67–84; PULSE 72–111; RESP 12–24; TEMP 36.5–37.7; O2SAT 84–99
[2023-01-01] MEDS: Morphine Sulfate 4 MG/ML CARTRIDGE IVPUSH ×8 (00:20→21:40)
[2023-01-01] MEDS: 0.9 % Sodium Chloride Flush 3 ML SYRINGE IVFLUSH ×2 (00:22→16:36)
[2023-01-01] MEDS: Piperacillin Sodium/Tazobactam 4.5 GM in 0.9 % Sodium Chloride 100 ML IV ×4 (04:36→21:32)
[2023-01-01] MEDS: Omeprazole 40 MG CAPSULE.DR PO (05:32)
[2023-01-01 06:22] LABS: Vancomycin Random 10.2 mcg/mL (15-20)
[2023-01-01 06:35] LABS: Alanine Aminotransferase 6 U/L (0-31); Albumin Level 2.2 g/dL (3.5-5.0); Alkaline Phosphatase 43 U/L (39-117); Anion Gap 13 (12-20); Aspartate Amino Transferase 23 U/L (5-31); Blood Urea Nitrogen 8 mg/dL (9-16); Calcium 7.4 mg/dL (8.4-10.2); Carbon Dioxide 27 mmol/L (22-29); Chloride 107 mmol/L (96-108); Creatinine Clr Calc Pharmacy 68.5; Estimated Glomerular Filt Rate > 60; Glucose Fasting 94 mg/dL (60-99); Potassium 2.9 mmol/L (3.3-5.1); Sodium 144 mmol/L (135-145); Total Protein 5.2 g/dL (6.5-8.0)
[2023-01-01 06:37] LABS: Hematocrit 26.6 % (37.0-47.0); Hemoglobin 9.2 g/dl (12.0-16.0); Red Blood Count 3.17 X10*6/uL (4.20-5.50); White Blood Count 2.5 X10*3/uL (4.8-10.8)
[2023-01-01 06:38] LABS: Eosinophils Percent Auto 1.2 % (0-4); Imm Gran Abs Auto 0.02 X10*3/uL (0.00-0.03); Imm Gran Pct Auto 0.8 % (0.0-0.4); Lymphocytes Absolute Auto 0.5 X10*3/uL (1.2-4.9); Lymphocytes Percent Auto 20.6 % (20-40); Mean Corpuscular HGB Conc 34.6 g/dl (31.0-35.0); Mean Corpuscular Volume 83.9 fL (80.0-98.0); Mean Platelet Volume 12.3 fL (9.4-12.3); Neutrophils Absolute Auto 1.8 x10*3/uL (2.0-8.3); Neutrophils Percent Auto 71.4 % (45-73); Red Cell Distribution Width 13.2 % (11.0-16.0)
[2023-01-01 06:39] LABS: MANUAL DIFF FLAG SCAN; Monocytes Absolute Auto 0.2 X10*3/uL (0.1-1.2)
[2023-01-01 06:42] LABS: Platelet Count 15 X10*3/uL (160-400)
[2023-01-01] MEDS: vancomycin HCL 1,000 MG in 0.9 % Sodium Chloride 250 ML 270 MG IV ×2 (06:52→19:17)
[2023-01-01 07:23] LABS: SLIDE REVIEW VERIFIED
[2023-01-01] MEDS: Venlafaxine HCl ER 37.5 MG CAP.ER.24H PO (08:27)
[2023-01-01] MEDS: busPIRone HCl 10 MG TABLET PO ×2 (08:27→21:31)
[2023-01-01] MEDS: Potassium Chloride Packet 20 MEQ PACKET 40 MEQ PO ×2 (08:27→21:31)
[2023-01-01] MEDS: lisinopriL 10 MG TABLET PO (08:28)
[2023-01-01] MEDS: Ascorbic Acid 500 MG TABLET 1000 MG PO (08:28)
[2023-01-01] MEDS: methADONE HCl 20 MG/2 ML ORAL.CONC 80 MG PO (08:28)
[2023-01-01] MEDS: Calcium + Vitamin D 250 MG TABLET PO ×2 (08:28→21:31)
[2023-01-01] MEDS: Magnesium Sulfate/H2O 2 GM/50 ML PIGGYBACK IV ×2 (08:44→21:31)
[2023-01-01] MEDS: Nicotine 14 MG PATCH.TD24 TRANSDERMA (08:45)
--- NOTE | 2023-01-01 08:49 | HE.PHANOTE ---
Re: leoncioo dosing Increased dose to 1000 q12 and will recheck trough 01/01 @1700. She missed a dose 12/31 after losing iv access and it's unclear where her level will be after a dose this morning. She was slowly getting close to therapeutic level before missing a dose and want to be sure not to overshoot on dosing.
[2023-01-01] MEDS: Enoxaparin Sodium 40 MG/0.4 ML SYRINGE SUBCUT (10:34)
[2023-01-01] MEDS: Fluconazole in NaCl,Iso-Osm 200 MG/100 ML PIGGYBACK 100 MG IV (11:03)
--- NOTE | 2023-01-01 13:00 | HO.PM.IMPN ---
Subjective Subjective Date of Service: 01/01/23 Interval History: Notable decline overnight. Sats slowly dropping despite maximum support Review of Systems Unable to obtain Physical Exam Vital Signs: Vital Signs: Last Vital Signs Temp 97.7 F 01/01/23 11:12 Pulse 87 01/01/23 11:12 Resp 16 01/01/23 12:23 BP 105/67 01/01/23 11:12 Pulse Ox 89 L 01/01/23 11:12 O2 Del Method High Flow Nasal C annula 01/01/23 11:12 O2 Flow Rate 50 01/01/23 11:12 FiO2 90 01/01/23 11:12 BMI result Body Mass Index 24.1 Const: Other: Awake alert no acute distress Resp: Other: Diminished all jara with coarse rhonchi and expiratory wheezes throughout Cardio: Other: No S4; positive S1-S2; no S3 murmurs rubs or gallops GI: Other: Soft nontender nondistended with normoactive bowel sounds Extrem: Other: No edema bilaterally Objective Data Active Medications Acetaminophen (Acetaminophen 325 Mg Tablet) 650 mg PO Q6H PRN PRN Reason: Pain, Mild (Pain Scale 1-3) Last Admin: 12/31/22 11:40 Dose: 650 mg Documented By: KANIKA Al Hydroxide/Mg Hydroxide (Magnesium Hydrox/Alum Hydrox 30 Ml Oral.Susp) 30 ml PO Q4H PRN PRN Reason: Heartburn/Nausea Albuterol Sulfate (Albuterol Sulfate 90 Mcg 8 Gm Inhaler) 2 puff INHALE QID PRN PRN Reason: wheezing Ascorbic Acid (Ascorbic Acid 500 Mg Tablet) 1,000 mg PO DAILY [facility] Last Admin: 01/01/23 08:28 Dose: 1,000 mg Documented By: DENISE Buspirone HCl (Buspirone Hcl 10 Mg Tablet) 10 mg PO BID [facility] Last Admin: 01/01/23 08:27 Dose: 10 mg Documented By: DENISE Calcium Carbonate/Cholecalciferol (Calcium + Vitamin D 250 Mg Tablet) 250 mg PO BID [facility] Last Admin: 01/01/23 08:28 Dose: 250 mg Documented By: DENISE Clonazepam (Clonazepam 0.125 Mg Tab.Rapdis) 0.25 mg PO BID PRN PRN Reason: anxiety attack Last Admin: 01/01/23 08:35 Dose: 0.25 mg Documented By: DENISE Enoxaparin Sodium (Enoxaparin Sodium 40 Mg/0.4 Ml Syringe) 40 mg SUBCUT Q24H YO Last Admin: 01/01/23 10:34 Dose: 40 mg Documented By: JESUS Fluconazole (Diflucan) 200 mg in 100 mls @ 100 mls/hr IV Q24H [facility] Last Infusion: 01/01/23 12:05 Dose: 0 mls/hr Documented By: DENISE Piperacillin Sod/Tazobactam (Sod 4.5 gm/ Sodium Chloride) 100 mls @ 200 mls/hr IV Q6H [facility] Last Infusion: 01/01/23 11:57 Dose: 0 mls/hr Documented By: DENISE Vancomycin HCl 1,000 mg/ (Sodium Chloride) 270 mls @ 270 mls/hr IV Q12H [facility] Last Infusion: 01/01/23 08:55 Dose: 0 mls/hr Documented By: DENISE Magnesium Sulfate (Magnesium Sulfate/H2o) 2 gm in 50 mls @ 25 mls/hr IV BID YO Stop: 01/02/23 10:59 Last Infusion: 01/01/23 10:45 Dose: 0 mls/hr Documented By: DENISE Lisinopril (Lisinopril 10 Mg Tablet) 10 mg PO DAILY [facility]; Protocol Last Admin: 01/01/23 08:28 Dose: 10 mg Documented By: DENISE Melatonin (Melatonin 3 Mg Tablet) 6 mg PO BEDTIME [facility] Last Admin: 12/31/22 21:33 Dose: 6 mg Documented By: AMANDO Methadone HCl (Methadone Hcl 20 Mg/2 Ml Oral.Conc) 80 mg PO DAILY [facility] Last Admin: 01/01/23 08:28 Dose: 80 mg Documented By: DENISE Morphine Sulfate (Morphine Sulfate 4 Mg/Ml Cartridge) 4 mg IVPUSH Q3H PRN; Protocol PRN Reason: Pain, Moderate(Pain Scale 4-6) Last Admin: 01/01/23 12:13 Dose: 4 mg Documented By: DENISE Nicotine (Nicotine 14 Mg Patch.Td24) 14 mg TRANSDERMA DAILY [facility] Last Admin: 01/01/23 08:45 Dose: 14 mg Documented By: DENISE Omeprazole (Omeprazole 40 Mg Capsule.Dr) 40 mg PO DAILY@0630 [facility] Last Admin: 01/01/23 05:32 Dose: 40 mg Documented By: MARIELOS Pharmacy Consult (Consult Rx Vancomycin Dosing) 1 each MISCELLANE DAILY PRN PRN Reason: Consult order Potassium Chloride (Potassium Chloride Packet 20 Meq Packet) 40 meq PO BID [facility] Last Admin: 01/01/23 08:27 Dose: 40 meq Documented By: DENISE Senna (Sennosides 8.6 Mg Tablet) 8.6 mg PO BEDTIME PRN PRN Reason: constipation Sodium Chloride (0.9 % Sodium Chloride Flush 3 Ml Syringe) 3 ml IVFLUSH QSHIFT [facility] Last Admin: 01/01/23 08:30 Dose: Not Given Documented By: DENISE Non-Admin Reason: IV Running Venlafaxine HCl (Venlafaxine Hcl Er 37.5 Mg Cap.Er.24h) 37.5 mg PO DAILY@0800 [facility] Last Admin: 01/01/23 08:27 Dose: 37.5 mg Documented By: DENISE Labs 01/01/23 05:57 01/01/23 05:57 Labs: Laboratory Results - last 24 hr 12/28/22 12/31/22 01/01/23 07:55 15:01 05:57 MCV MCH MCHC RDW Plt Count MPV Immature Gran % (Auto) Neut % (Auto) Lymph % (Auto) Leon % (Auto) Eos % (Auto) Baso % (Auto) Lymph # (Auto) Leon # (Auto) Eos # (Auto) Baso # (Auto) Abs Immat Gran (auto) Absolute Neuts (auto) Absolute Nucleated RBC Nucleated RBC % (auto) Smear Tech's Comments Anion Gap 13 Estim Creat Clear Calc 68.5 Estimated GFR > 60 Fasting Glucose 94 Calcium 7.4 L D Magnesium 1.0 L* Total Bilirubin 1.0 AST 23 ALT 6 Alkaline Phosphatase 43 Total Protein 5.2 L Albumin 2.2 L Random Vancomycin Blood Type A Positive A Positive Antibody Screen NEGATIVE NEGATIVE Crossmatch See Detail 01/01/23 01/01/23 05:57 05:57 MCV 83.9 MCH 29.0 MCHC 34.6 RDW 13.2 Plt Count 15 L* D MPV 12.3 Immature Gran % (Auto) 0.8 H Neut % (Auto) 71.4 Lymph % (Auto) 20.6 Leon % (Auto) 6.0 Eos % (Auto) 1.2 Baso % (Auto) 0.0 Lymph # (Auto) 0.5 L Leon # (Auto) 0.2 Eos # (Auto) 0.0 Baso # (Auto) 0.0 Abs Immat Gran (auto) 0.02 Absolute Neuts (auto) 1.8 L Absolute Nucleated RBC 0.000 Nucleated RBC % (auto) 0.0 Smear Tech's Comments VERIFIED Anion Gap Estim Creat Clear Calc Estimated GFR Fasting Glucose Calcium Magnesium Total Bilirubin AST ALT Alkaline Phosphatase Total Protein Albumin Random Vancomycin 10.2 L Blood Type Antibody Screen Crossmatch Assessment and Plan (1) Neutropenic fever: Status: Acute Plan 67-year-old female with history of hypertension, history of lung cancer s/p left lobectomy 2020, now with 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 1. Acute sepsis with hypotension secondary to neutropenic fever /metastatic lung cancer -blood cultures x2 remain negative -continue empiric vancomycin/cefepime/fluconazole DNR DNI... Patient unable to make decisions regarding her health and well-being; at this point in time with activated healthcare proxy Discussed at length with daughter and sisters (daughter proxy) if sats continued to decline moved comfort care with morphine drip Requires ongoing hospitalization for empiric antibiotic coverage for neutropenic fever Time Spent With Patient Time: Total time managing care of this patient today ____ minutes. Quality Stroke Does the patient have a stroke diagnosis?: No VTE Prior VTE?: No VTE Risk Level:: Medical - moderate - high VTE Device Contraindication: Treatment Not Indicated VTE Drug Contraindication: N/A - Med Ordered
[2023-01-01 17:21] LABS: Vancomycin Random 14.5 mcg/mL (15-20)
[2023-01-01] MEDS: Melatonin 3 MG TABLET 6 MG PO (21:31)
[2023-01-02] VITALS (9 sets, daily range): BP systolic 107–123; BP diastolic 77–82; PULSE 82–97; RESP 17–28; TEMP 36.4–37; O2SAT 86–94
[2023-01-02] MEDS: 0.9 % Sodium Chloride Flush 3 ML SYRINGE IVFLUSH (02:40)
[2023-01-02] MEDS: Morphine Sulfate 4 MG/ML CARTRIDGE IVPUSH ×4 (02:40→23:48)
[2023-01-02] MEDS: Piperacillin Sodium/Tazobactam 4.5 GM in 0.9 % Sodium Chloride 100 ML IV (06:41)
[2023-01-02] MEDS: Omeprazole 40 MG CAPSULE.DR PO (06:42)
[2023-01-02 09:13] LABS: Basophils Percent Auto 0.7 % (0-2); Eosinophils Percent Auto 1.5 % (0-4); Hematocrit 24.3 % (37.0-47.0); Hemoglobin 8.3 g/dl (12.0-16.0); Imm Gran Abs Auto 0.02 X10*3/uL (0.00-0.03); Imm Gran Pct Auto 0.7 % (0.0-0.4); Lymphocytes Absolute Auto 0.7 X10*3/uL (1.2-4.9); Lymphocytes Percent Auto 25.3 % (20-40); MANUAL DIFF FLAG SCAN; Mean Corpuscular HGB Conc 34.2 g/dl (31.0-35.0); Mean Corpuscular Hemoglobin 29.4 pg (27.0-33.0); Mean Corpuscular Volume 86.2 fL (80.0-98.0); Mean Platelet Volume 14.8 fL (9.4-12.3); Monocytes Absolute Auto 0.1 X10*3/uL (0.1-1.2); Monocytes Percent Auto 5.1 % (2-11); Neutrophils Absolute Auto 1.8 x10*3/uL (2.0-8.3); Neutrophils Percent Auto 66.7 % (45-73); Red Blood Count 2.82 X10*6/uL (4.20-5.50); Red Cell Distribution Width 13.8 % (11.0-16.0); SCAN SMEAR FLAG 1; White Blood Count 2.7 X10*3/uL (4.8-10.8)
[2023-01-02 09:25] LABS: Platelet Count 16 X10*3/uL (160-400)
[2023-01-02] MEDS: vancomycin HCL 1,000 MG in 0.9 % Sodium Chloride 250 ML 270 MG IV (09:27)
[2023-01-02] MEDS: Magnesium Sulfate/H2O 2 GM/50 ML PIGGYBACK IV (09:28)
[2023-01-02] MEDS: methADONE HCl 20 MG/2 ML ORAL.CONC 80 MG PO (09:31)
[2023-01-02 09:34] LABS: Alanine Aminotransferase 6 U/L (0-31); Albumin Level 2.2 g/dL (3.5-5.0); Alkaline Phosphatase 45 U/L (39-117); Anion Gap 12 (12-20); Aspartate Amino Transferase 22 U/L (5-31); Bilirubin Total 0.7 mg/dL (0.0-1.0); Blood Urea Nitrogen 10 mg/dL (9-16); Calcium 7.7 mg/dL (8.4-10.2); Carbon Dioxide 29 mmol/L (22-29); Chloride 106 mmol/L (96-108); Creatinine Clr Calc Pharmacy 70.7; Estimated Glomerular Filt Rate > 60; Glucose Fasting 68 mg/dL (60-99); Potassium 2.7 mmol/L (3.3-5.1); Sodium 144 mmol/L (135-145); Total Protein 5.4 g/dL (6.5-8.0)
[2023-01-02] MEDS: lisinopriL 10 MG TABLET PO (09:34)
[2023-01-02] MEDS: busPIRone HCl 10 MG TABLET PO (09:34)
[2023-01-02] MEDS: Venlafaxine HCl ER 37.5 MG CAP.ER.24H PO (09:34)
[2023-01-02 09:59] LABS: SLIDE REVIEW VERIFIED
--- NOTE | 2023-01-02 13:31 | MHC.CLN ---
F/U PO INTAKE RANGES FROM 50-100% DIET RX:REGULAR, NEUTROPENIC PRECAUTIONS-APPROPRIATE SKIN INTACT CONTINUE TO MONITOR PO INTAKE
--- NOTE | 2023-01-02 13:37 | MHC.CM.PN ---
EMR REVIEWED, PT ON HI FLOW NC, PT NOW RN BARIATRIC, CM WILL CONT TO FOLLOW.
--- NOTE | 2023-01-02 13:37 | HO.PM.IMPN ---
Subjective Subjective Date of Service: 01/03/23 Interval History: patient resting in bed appears mildly tachycardia not verbalizing much has 100% high-flow and 100% non-rebreather mask in place, daughter at bedside, patient has been noted to have increasing oxygen requirement as well as on high dose of morphine and methadone with persistent pain, patient is asking on anxiolytics otherwise not answering questions. Review of Systems unable to obtain due to mild respiratory distress and mental status. Physical Exam Vital Signs: Vital Signs: Last Vital Signs Temp 98.6 F 01/02/23 11:52 Pulse 90 01/02/23 11:52 Resp 21 H 01/02/23 11:52 BP 110/79 01/02/23 11:52 Pulse Ox 93 01/02/23 11:52 O2 Del Method High Flow Nasal C annula 01/02/23 11:52 O2 Flow Rate 32.3 01/02/23 07:57 FiO2 91.6 01/02/23 07:57 BMI result Body Mass Index 24.1 Const: Other: General mild respiratory distress, anxious, awake and alert Neck supple no JVD. CVS regular rate rhythm, Respiratory lungs diminished breath sounds with bilateral rhonchi, no use of accessory muscles Gastrointestinal abdomen soft, nontender, bowel sounds audible, no guarding , no rigidity. Extremities no edema. Neuro moving all 4 extremity ,speech clear. Skin no rash Objective Data Active Medications Acetaminophen (Acetaminophen 325 Mg Tablet) 650 mg PO Q6H PRN PRN Reason: Pain, Mild (Pain Scale 1-3) Last Admin: 12/31/22 11:40 Dose: 650 mg Documented By: KANIKA Albuterol Sulfate (Albuterol Sulfate 90 Mcg 8 Gm Inhaler) 2 puff INHALE QID PRN PRN Reason: wheezing Lorazepam (Lorazepam 2 Mg/Ml Vial) 0.5 mg IVPUSH Q4H PRN PRN Reason: Restlessness Methadone HCl (Methadone Hcl 20 Mg/2 Ml Oral.Conc) 80 mg PO DAILY [facility] Last Admin: 01/02/23 09:31 Dose: 80 mg Documented By: CHELOORRSultana Morphine Sulfate (Morphine Sulfate 4 Mg/Ml Cartridge) 4 mg IVPUSH Q1H PRN; Protocol PRN Reason: Anxiety Scopolamine (Scopolamine 1.5 Mg Patch.Td.3) 1.5 mg EAR-BEHIND Q72H [facility] Sodium Chloride (0.9 % Sodium Chloride Flush 3 Ml Syringe) 3 ml IVFLUSH QSHIFT YO Last Admin: 01/02/23 11:30 Dose: Not Given Documented By: JESUS Non-Admin Reason: IV Running Labs 01/02/23 06:50 01/02/23 06:50 Labs: Laboratory Results - last 24 hr 01/01/23 01/02/23 01/02/23 16:52 06:50 06:50 MCV 86.2 MCH 29.4 MCHC 34.2 RDW 13.8 Plt Count 16 L* MPV 14.8 H Immature Gran % (Auto) 0.7 H Neut % (Auto) 66.7 Lymph % (Auto) 25.3 [place] % (Auto) 5.1 Eos % (Auto) 1.5 Baso % (Auto) 0.7 Lymph # (Auto) 0.7 L [place] # (Auto) 0.1 Eos # (Auto) 0.0 Baso # (Auto) 0.0 Abs Immat Gran (auto) 0.02 Absolute Neuts (auto) 1.8 L Absolute Nucleated RBC 0.000 Nucleated RBC % (auto) 0.0 Smear Tech's Comments VERIFIED Anion Gap 12 Estim Creat Clear Calc 70.7 Estimated GFR > 60 Fasting Glucose 68 Calcium 7.7 L Total Bilirubin 0.7 AST 22 ALT 6 Alkaline Phosphatase 45 Total Protein 5.4 L Albumin 2.2 L Random Vancomycin 14.5 L Microbiology Microbiology Results: Microbiology 12/28/22 07:55 Blood Culture - Final Blood - Venous No growth after 5 days. 12/28/22 07:52 Blood Culture - Final Blood - Venous No growth after 5 days. 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 #Acute sepsis with hypotension secondary to neutropenic fever with metastatic lung cancer, receiving palliative chemo immunotherapy at [facility] with paclitaxel, carboplatin, and pembrolizumab for stage IV squamous cell carcinoma of the lung with brain metastasis presented with headache, currently on empiric IV vancomycin, cefepime and fluconazole blood cultures x2 remains negative,WBC 0.3 on admission improved to 2.7 ,s/p filgastrim in the ED, patient requiring high-flow oxygen as well as 100% non-rebreather mask due to significant hypoxemia, is on methadone 80 mg and requiring additional 4 mg of morphine q.2 hours due to acute pain patient remains anxious, tachypneic and since not responding to maximum treatment case discussed with patient and her daughter Magda Mathis healthcare proxy at bedside and it was decided that patient treatment goals should be towards comfort, therefore will change code status to [employer], will discontinue all medications including antibiotics and patient placed on IV morphine RISK MANAGER, as needed Ativan, scopolamine patch and oxygen for comfort. patient's diagnosis: # sepsis due to neutropenic fever # metastatic lung cancer with brain Mets # Acute on chronic thrombocytopenia -likely chemo induced, platelets remain low at 16,000 thousand, status post dexamethasone #Acute headache -right sided migraine type headache with associated phonophobia, photophobia, nausea.? No diplopia -MRI brain did not show any or new remote enhancing lesions but does show linear enhancement along the periphery of the resection cavity for which follow-up is advised to distinguish between evolving granulation/scar tissue versus residual/recurrent small cell volume tumor, seen by Neurology due to muscle twitching that was felt to be related to low magnesium and hypocalcemia #Behavioral/memory changes noted by daughter-likely 2/2 craniotomy and tumor resection # opioid dependence # hypertension Patient requires continued inpatient for comfort care. Time Spent With Patient Time: Total time managing care of this patient today ____ minutes. Quality Stroke Does the patient have a stroke diagnosis?: No VTE Prior VTE?: No VTE Risk Level:: Medical - moderate - high VTE Device Contraindication: Treatment Not Indicated VTE Drug Contraindication: N/A - Med Ordered
[2023-01-02] MEDS: LORazepam 2 MG/ML VIAL 0.5 MG IVPUSH ×3 (13:46→22:48)
[2023-01-02] MEDS: Morphine Sulfate/NS 100 MG/100 ML PLAST..BAG IVCONT (16:27)
[2023-01-02] MEDS: Scopolamine 1.5 MG PATCH.TD.3 EAR-BEHIND (16:47)
[2023-01-02] MEDS: Morphine Sulfate 4 MG/ML CARTRIDGE 3 MG IVPUSH ×2 (17:13→23:17)
[2023-01-03] VITALS: RESP 18
[2023-01-03 00:26] VITALS: RESP 36
[2023-01-03] MEDS: LORazepam 2 MG/ML VIAL 1 MG IVPUSH (00:29)
[2023-01-03 00:50] VITALS: RESP 60
[2023-01-03] MEDS: HYDROmorphone HCl 2 MG/ML VIAL 1.5 MG IVPUSH (01:07)
[2023-01-03 01:55] VITALS: RESP 0
--- NOTE | 2023-01-03 02:08 | PM.EVENT ---
Event Note Date of Service: 01/03/23 Event Note: I was called to patient's bedside to pronounce the patient. No spontaneous movements were present. There was no response to verbal or tactile stimulus. Pupils were mid dilated and fixed. No breath sounds were appreciated over either lung field. No carotid pulses were palpable. No heart sounds were auscultated over entire precordium. Patient was on comfort measures only. Patient pronounced on 01/03/2023 at 01:55. Condolences offered to family members at bedside. Time Spent With Patient Time: Total time managing care of this patient today ____ minutes.
--- NOTE | 2023-01-03 03:52 | PC.NURSE ---
Pt at start of shift appearing comfortable, resting on high flow n/c with morphine drip infusing. Pt started to have intermittent agitation and drip was titrated up and ativan given. Pt became more agitated, with increased wob and stated increased pain and need for void. She was assisted to bedpan and voided but became more agitated. Meds give as noted in the mar with pt becoming increasingly agitated,trying to get OOB, pulling off O2, increased wob, retracting with RR up to 60. MD Cantu aware of all changes and medications. Pt notably calmer after dilaudid. while zyprexa being prepared patient no longer demonstration such agitation. Pt's breating changed and med held as no longer needed. Patient passed approx an hour after with daughter Magda and sisters at bedside with every appearace of comfort. Please see MAR for further meds and pain assessments
--- NOTE | 2023-01-03 12:03 | P.DN_ITS ---
Discharge Sum: Prov Provider Primary care physician: SELIN Pratt Consults: 12/28/22 10:58 Consult to Hematology / Oncology Routine Consulting Provider: Eliza Murrell Reason for consultation: Metastatic lung cancer Has provider been notified: No 12/29/22 12:22 Addiction Medicine Routine Consulting Provider: Addiction Covering Reason for consultation: methadone Has provider been notified: Yes Discharge Sum: Diag Contributing Factors (1) Neutropenic fever: Discharge Sum: Summary Date and Time Date of admission: 12/28/22 10:53 Summary Details: 67-year-old female with history of hypertension, history of lung cancer s/p left lobectomy 2020, now with 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 sepsis with hypotension secondary to neutropenic fever with metastatic lung cancer, patient treated with iv vancomycin, cefepime and fluconazole blood cultures x2 remains negative,WBC 0.3 on admission improved to 2.7 ,s/p filgastrim in the ED, patient was noted to be significantly hypoxic and was treated with high-flow oxygen as well as 100% non-rebreather mask but patient noted to have no improvement in oxygenation as well as her generalized pain, she was continued on methadone 80 mg and was requiring additional 4 mg of morphine q.2 hours , patient remained hypoxic, anxious, tachypneic and since not responding to maximum treatment case discussed with patient and her daughter Magda Mathis healthcare proxy at bedside and 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 diagnosis: # sepsis due to neutropenic fever # metastatic lung cancer with brain Mets # Acute on chronic thrombocytopenia # opioid dependence # hypertension Additional Data Attending physician: Gabby Rizvi MD
--- NOTE | 2023-01-05 07:24 | P.CDIM_ITS ---
PROVIDER RESPONSE TEXT: To clarify, the appropriate diagnosis supported by the clinical indicators: Acute respiratory failure: hypoxic QUERY TEXT: PHYSICIAN'S DOCUMENTATION REQUEST Date of Query: 01/04/2023 10:02 AM EDT Patient Name: Tari Eaton Admit Date: 12/28/2022 RETROSPECTIVE QUERY Dear Gabby Rizvi, A review of the medical record indicates additional documentation may be needed. Please review below and update the documentation accordingly. Respiratory failure was documented on (insert date). Clinical Indicators: Respiratory: 12/29 - pulse ox 86 L RR 24 placed on 5 liters NC 12/29 - pulse ox 91 L RR 24 placed on 8 liters NC 12/30 - pulse ox 95 RR 26 placed on High flow NC 5 liters Returns to Ed with dyspnea, low o2, increasing shortness of breath. Diminished throughout with scattered rhonchi and expiratory wheezes. Stage IV squamous cell carcinoma of the lung with metastasis to the brain, emphysema, history of smok ing. Is there a diagnosis that correlates with the clinical indicators above for the respiratory status: Acute respiratory failure hypoxic, hypercapnic, or hypoxic and hypercapnic etc. Acute respiratory distress Other please specify Other (explain)Clinically unable to determine (explain)Thank you, Melissa Villarreal, CCS, CDIS Use of terms such as suspected, likely, concern for, or probable (associated with a specific diagnosi s that is being evaluated, monitored, or treated as if it exists) are acceptable and can be coded in the inpatient se tting, when documented at the time of discharge. Please use your independent medical judgment in providing your response. THIS QUERY IS PART OF THE PERMANENT MEDICAL RECORD
--- NOTE | 2023-01-05 07:33 | P.CDIM_ITS ---
PROVIDER RESPONSE TEXT: To clarify, the appropriate diagnosis supported by the clinical indicators: Diagnosis is still a likely, suspected, probable diagnosis QUERY TEXT: PHYSICIAN'S DOCUMENTATION REQUEST Date of Query: 01/04/2023 10:20 AM EDT Patient Name: Tari Eaton Admit Date: 12/28/2022 RETROSPECTIVE QUERY Dear Gabby Rizvi, A review of the medical record indicates additional documentation may be needed. Please review below and update the documentation accordingly. Clinical Indicators: Ed 12/28 - Clinical impression: Pneumonia Oncology consult note dated 12/28 - She left the hospital AMA last evening and [facility] Chest x-ray shows worsening patchy right opacities worrisome for worsening pneumonia. She has been restarted on Zosyn and Vancomycin. The diagnosis of Pneumonia was documented on but is not consistently noted in subsequent documentatio n. Please clarify the following: Diagnosis was present on admission and is now resolved Diagnosis was present on admission and is still being monitored, evaluated, or treated Diagnosis was ruled out Diagnosis is still a likely, suspected, probable diagnosis Other please specify Other (explain)Clinically unable to determine (explain)Thank you, Melissa Villarreal, CCS, CDIS Use of terms such as suspected, likely, concern for, or probable (associated with a specific diagnosi s that is being evaluated, monitored, or treated as if it exists) are acceptable and can be coded in the inpatient se tting, when documented at the time of discharge. Please use your independent medical judgment in providing your response. THIS QUERY IS PART OF THE PERMANENT MEDICAL RECORD
--- NOTE | 2023-05-29 14:34 | PM.DS ---
DS: Providers Provider Date of Service: 05/29/23 Date of admission: 12/28/22 10:53 Date of discharge: 06/05/23 Primary care physician: SELIN Pratt Consults: 12/28/22 10:58 Consult to Hematology / Oncology Routine Consulting Provider: Eliza Murrell Reason for consultation: Metastatic lung cancer Has provider been notified: No 12/29/22 12:22 Addiction Medicine Routine Consulting Provider: Addiction Covering Reason for consultation: methadone Has provider been notified: Yes DS: Diagnosis Discharge Diagnosis (1) Neutropenic fever: Status: Acute DS: Summary Hospital Course Hospital Course: 67-year-old female with history of hypertension, history of lung cancer s/p left lobectomy 2020, now with 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 sepsis with hypotension secondary to neutropenic fever with metastatic lung cancer, patient treated with iv vancomycin, cefepime and fluconazole blood cultures x2 remains negative,WBC 0.3 on admission improved to 2.7 ,s/p filgastrim in the ED, patient was noted to be significantly hypoxic and was treated with high-flow oxygen as well as 100% non-rebreather mask but patient noted to have no improvement in oxygenation as well as her generalized pain, she was continued on methadone 80 mg and was requiring additional 4 mg of morphine q.2 hours , patient remained hypoxic, anxious, tachypneic and since not responding to maximum treatment case discussed with patient and her daughter Magda Mathis healthcare proxy at bedside and 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 Time Attestation Discharge coordination time: Greater than 30 minutes Quality: Safe Use of Opioids Does Pt have an Active Cancer Diagnosis on the Problem List?: Yes Opioid Measure Date for [facility] Report: 04/29/23 Opioid Measure Time for [facility] Report: 14:36 Quality: Stroke Does the patient have a stroke diagnosis?: No Physical Exam Vital Signs: Vital Signs: Last Vital Signs Temp 98.6 F 01/02/23 11:52 Pulse 90 01/02/23 11:52 Resp 0 L 01/03/23 01:55 BP 110/79 01/02/23 11:52 Pulse Ox 93 01/02/23 11:52 O2 Del Method High Flow Nasal C annula 01/02/23 11:52 O2 Flow Rate 32.3 01/02/23 07:57 FiO2 91.6 01/02/23 07:57 BMI result Body Mass Index 24.1 DS: Data Data Completed and Pending Completed studies during hospitalization [Text1]: Procedures Introduction of Vasopressor into Central Vein, Percutaneous Approach (12/26/22) Transfusion of Nonautologous Platelets into Peripheral Vein, Percutaneous Approach (12/28/22) Transfusion of Nonautologous Red Blood Cells into Peripheral Vein, Percutaneous Approach (12/28/22) Discharge Plan Discharge Date/Time: 01/03/23 01:55 Patient Disposition: Discharge Diagnosis: sepsis due to neutropenia, metastatic lung cancer Referrals: Mavis Godfrey PA [Primary Care Provider] - 1 Week Discharge Medications: No Action alendronate 70 mg tablet 70 mg PO TU melatonin 3 mg tablet 6 mg PO BEDTIME lisinopril 10 mg tablet 10 mg PO DAILY albuterol sulfate [Ventolin HFA] 90 mcg/actuation HFA aerosol inhaler 2 puff inhalation QID PRN (Reason: wheezing) fluticasone propionate 50 mcg/actuation spray,suspension 1 spray intranasal DAILY calcium carbonate-vitamin D3 600 mg-10 mcg (400 unit) tablet 1 tab PO BID methadone [Methadone Intensol] 10 mg/mL Concentrate 80 mg PO DAILY sennosides [senna] 8.6 mg tablet 8.6 mg PO BEDTIME PRN (Reason: constipation) ascorbic acid (vitamin C) [Vitamin C] 1,000 mg tablet 1,000 mg PO DAILY venlafaxine 37.5 mg capsule,extended release 24hr 37.5 mg PO DAILY@0800 lidocaine-prilocaine 2.5-2.5 % cream 1 appl topical DAILY PRN (Reason: PRIOR TO PORT USE) pantoprazole 40 mg tablet,delayed release (DR/EC) 40 mg PO DAILY@0630 buspirone 10 mg tablet 10 mg PO BID clonazepam 0.25 mg tablet,disintegrating 0.25 mg PO BID PRN (Reason: anxiety attack) fluticasone propionate [Flovent HFA] 220 mcg/actuation HFA aerosol inhaler 2 puff INHALATION BID Discharge Date/Time: 01/03/23 01:55
== END 2023-01-03 01:55 | disposition expired | DRG 871 ==
LOC: HO.ED 09:02 → HO.EDOVER 11:00 → HO.IMC 11:13
PROVIDERS: Physician Assistant; Admitting Provider Hospitalist; Emergency Provider Emergency Medicine; PCP Student in an Organized Health Care Education/Training Program; Visit Provider Hospitalist
DX: A41.9 Sepsis, unspecified organism (principal); J18.9 Pneumonia, unspecified organism; J96.01 Acute respiratory failure with hypoxia; F11.20 Opioid dependence, uncomplicated; C79.31 Secondary malignant neoplasm of brain; D61.818 Other pancytopenia; R64 Cachexia; Z66 Do not resuscitate; I95.9 Hypotension, unspecified; J43.9 Emphysema, unspecified; G43.909 Migraine, unspecified, not intractable, without status migrainosus; I10 Essential (primary) hypertension; Z90.2 Acquired absence of lung [part of]; E83.51 Hypocalcemia; E83.42 Hypomagnesemia; F17.210 Nicotine dependence, cigarettes, uncomplicated; Z51.5 Encounter for palliative care; D70.9 Neutropenia, unspecified; R50.81 Fever presenting with conditions classified elsewhere; Z20.822 Contact with and (suspected) exposure to COVID-19; Z79.899 Other long term (current) drug therapy; Z68.24 Body mass index [BMI] 24.0-24.9, adult
CPT/HCPCS: 36415; 71045; 80048; 80053; 80202; 81003; 82565; 83605; 83735; 83880; 84484; 85007; 85025; 85027; 86850; 86900; 86901; 86923; 87040; 87635; 92950; 93005; 94640; 99285; J0692; J1170; J1450; J1650; J1940; J2060; J2270; J2543; J3370; J3371; J3475; P9016; P9073

== ENCOUNTER → 2022-12-28 10:53 | Outpatient (BNV) | payer OTHER, SELFPAY | PROVIDERS: Admitting Provider Hospitalist; Emergency Provider Emergency Medicine; PCP Student in an Organized Health Care Education/Training Program; Visit Provider Internal Medicine | DX: D70.9 Neutropenia, unspecified (principal); D69.6 Thrombocytopenia, unspecified; C34.90 Malignant neoplasm of unspecified part of unspecified bronchus or lung; G93.89 Other specified disorders of brain | CPT/HCPCS: 99231 ==

== ENCOUNTER → 2022-12-28 10:53 | Outpatient (BNV) | payer OTHER, SELFPAY | PROVIDERS: Admitting Provider Hospitalist; Emergency Provider Emergency Medicine; PCP Student in an Organized Health Care Education/Training Program; Visit Provider Hospitalist | DX: D70.9 Neutropenia, unspecified (principal); R50.81 Fever presenting with conditions classified elsewhere | CPT/HCPCS: 99223; 99233; 99239; 99499 ==